=== PATIENT | female | born 1940 | race Caucasian/White ===

== ENCOUNTER 2016-06-14 08:00 | Day surgery (SDC) | payer MEDICARE ==
[~2016-06-14] VITALS: Ht 152.4 cm; Wt 69.1 kg
[2016-06-14] VITALS (8 sets, daily range): BP systolic 106–143; BP diastolic 49–73; PULSE 82–95; RESP 18–20; TEMP 97.7–98; O2SAT 93–98
[~2016-06-14 08:00] MED LIST: AMIT25; CLOR1TAB23 PO; ESTROGEN PATCH TOP; HYDR-3580 PO; IBUP600T26 PO; LIPI10TA PO; PRIN5TAB PO; SYNT75TA PO
[2016-06-14] MEDS ORDERED: AMIT25TA9 PO (08:38)
[2016-06-14] MEDS ORDERED: OMEG100010 PO (08:38)
[2016-06-14] MEDS ORDERED: CHEL50TA PO (08:38)
[2016-06-14] MEDS ORDERED: CLOR3.755 PO (08:38)
[2016-06-14] MEDS ORDERED: ALPH400C2 PO (08:38)
[2016-06-14] MEDS ORDERED: LEVO50TA4 PO (08:38)
[2016-06-14] MEDS ORDERED: LUTE1CAP4 PO (08:38)
[2016-06-14] MEDS ORDERED: EVEN10003 PO (08:38)
[2016-06-14] MEDS ORDERED: CHRO200C PO (08:38)
[2016-06-14] MEDS ORDERED: MULT1TAB84 PO (08:38)
[2016-06-14] MEDS ORDERED: LIPI10TA PO (08:38)
[2016-06-14] MEDS ORDERED: LISI10TA3 PO (08:38)
[2016-06-14] MEDS ORDERED: VITA10007 PO (08:38)
[2016-06-14] MEDS ORDERED: ESTR0.5T PO (08:38)
[2016-06-14] MEDS ORDERED: SODIUM CHLOR 0.9% 1000 ML IV SCH (09:15)
[2016-06-14] MEDS ORDERED: MIDAZOLAM HCL 5 MG/5 ML VIAL ONE (09:29)
[2016-06-14] MEDS ORDERED: fentaNYL CITRATE 250 MCG/5 ML AMP ONE (09:29)
[2016-06-14] MEDS ORDERED: LIDOCAINE 1%/EPINEPHrine 1:100,000 SOLN 20 ML VIAL ONE (10:02)
--- NOTE | 2016-06-14 10:25 | RADRPT ---
EXAM DATE/TIME: 06/14/2016 09:33 [facility] COMPARISON: No previous studies available for comparison. INDICATIONS : Left lung mass SEDATION TIME: 20 minutes BIOPSY SITE: Left upper lobe MEDICATION(S): 1.) 2 mg midazolam (Versed) IV 2.) 100 mcg fentanyl (Sublimaze) IV DEVICE(S): 1.) 20 gauge Temno core biopsy needle MEDICAL HISTORY : Gastroesophageal reflux disease. SURGICAL HISTORY : Hysterectomy. ENCOUNTER: Initial ACUITY: 1 day PAIN SCORE: 0/10 LOCATION: Right chest A total of one core specimen(s) were obtained and sent to the laboratory for pathologic evaluation. PROCEDURE: 1. CT guided lung biopsy. 2. Conscious sedation with continuous EKG and oximetry monitoring. 3. EKG and oximetry remained stable throughout the procedure. Prior to the procedure informed consent was obtained. Any appropriate prior imaging studies were rev iewed. The site was prepped in a sterile fashion. Full sterile technique was used, including cap, mask, madi rile gloves and gown and a large sterile sheet. Hand hygiene and 2% chlorhexidine and/or betadine/al cohol prep was utilized per protocol for cutaneous antisepsis. The skin and subcutaneous tissues wer e infiltrated with local anesthetic solution. With CT guidance the previously identified target was localized. Biopsy was performed using the presc ribed needle as above. Adequate hemostasis was obtained with compression at the puncture site. Follow-up CT scan reveals no pneumothorax. Conscious sedation was performed with the prescribed dosages and duration as above. The patient skylar ated the procedure well and there were no complications. EKG and oximetry remained stable throughout the procedure. The patient was sent to Radiology Outpatient Unit in stable condition. CONCLUSION: Uncomplicated CT guided biopsy. Trey Newton MD on June 14, 2016 at 10:22 Board Certified Radiologist. This report was verified electronically.
[2016-06-14] MEDS ORDERED: oxyCODONE/ACETAMINOPHEN 5 MG/325 MG TAB PO PRN (11:00)
--- NOTE | 2016-06-14 11:14 | RADRPT ---
EXAM DATE/TIME: 06/14/2016 10:32 [facility] COMPARISON: No previous studies available for comparison. INDICATIONS: S/p left lung bx MEDICAL HISTORY: None. SURGICAL HISTORY: None. ENCOUNTER: Initial ACUITY: 1 day PAIN SCORE: 0/10 LOCATION: Left chest FINDINGS: There is no evidence of pneumothorax status post left upper lobe mass biopsy. The heart and mediasti nal structures are normal. The pulmonary vascular pattern is normal. CONCLUSION: 1. No pneumothorax status post left upper lobe mass biopsy. Trey Newton MD on June 14, 2016 at 10:53 Board Certified Radiologist. This report was verified electronically.
--- NOTE | 2016-06-14 12:20 | RADRPT ---
EXAM DATE/TIME: 06/14/2016 11:57 [facility] COMPARISON: CHEST EXPIRATION ONLY, June 14, 2016, 10:32. INDICATIONS: Status post left lung biopsy. MEDICAL HISTORY: Hypertension. SURGICAL HISTORY: Hysterectomy. Tonsillectomy. Breast augmentation. ENCOUNTER: Initial ACUITY: 1 day PAIN SCORE: 0/10 LOCATION: Chest FINDINGS: There is no evidence of pneumothorax status post left upper lobe lung mass biopsy. The lungs are sta ble in appearance compared to the previous examination. The heart is stable. CONCLUSION: 1. No pneumothorax status post left lung mass biopsy. Trey Newton MD on June 14, 2016 at 12:12 Board Certified Radiologist. This report was verified electronically.
== END 2016-06-14 14:20 | disposition home or self-care (01) ==
LOC: HRAD 08:00 → EDSTATUS 08:00 → HRIP 08:02 → HRAD 14:20
PROVIDERS: ATTEND Internal Medicine
DX: R91.8 Other nonspecific abnormal finding of lung field (principal); K21.9 Gastro-esophageal reflux disease without esophagitis; I10 Essential (primary) hypertension
CPT/HCPCS: 32405; 71010; 77012; 88305; 88341; 88342; J2250; J3010

== ENCOUNTER 2016-06-17 08:19 | Day surgery (SDC) | payer MEDICARE ==
[~2016-06-17] VITALS: Ht 152.4 cm; Wt 69.1 kg
[~2016-06-17 08:19] MED LIST changes: +ALPH400C2 PO; +AMIT25TA9 PO; +CHEL50TA PO; +CHRO200C PO; +CLOR3.755 PO; +ESTR0.5T PO; +EVEN10003 PO; +LEVO50TA4 PO; +LISI10TA3 PO; +LUTE1CAP4 PO; +MULT1TAB84 PO; +OMEG100010 PO; +VITA10007 PO
[2016-06-17 08:41] VITALS: BP 142/81; PULSE 93; RESP 20; TEMP 98.7; O2SAT 91
[2016-06-17] MEDS ORDERED: SODIUM CHLORIDE 0.9% 1000 ML IV SCH (09:00)
[2016-06-17] MEDS ORDERED: MUPIROCIN 2% OINT 1 APPLIC/GM SYR EACH NARE SCH (09:00)
[2016-06-17] MEDS ORDERED: POVIDONE IODINE 5% (ANTISEPSIS KIT) 4 APPLICATIONS EACH NARE SCH (09:00)
[2016-06-17] MEDS ORDERED: VANCOMYCIN 1000 MG/NS 250 ML - implanted port/tunneled catheter IV SCH ×2 (09:00)
[2016-06-17] MEDS ORDERED: CHLORHEXIDINE GLUCONATE 2 % 1 PACK (2 CLOTHS) TOPICAL SCH (09:00)
[2016-06-17] MEDS ORDERED: ceFAZolin 2 GM PREMIX 50 ML - implanted port/tunneled catheter insertion IV SCH (09:30)
[2016-06-17] MEDS ORDERED: MIDAZOLAM HCL 5 MG/5 ML VIAL ONE (10:15)
[2016-06-17] MEDS ORDERED: fentaNYL CITRATE 250 MCG/5 ML AMP ONE (10:15)
[2016-06-17] MEDS ORDERED: LIDOCAINE 1%/EPINEPHrine 1:100,000 SOLN 20 ML VIAL ONE (10:48)
[2016-06-17 11:35] VITALS: BP 151/72; PULSE 92; RESP 20; TEMP 97.5; O2SAT 92
--- NOTE | 2016-06-17 11:37 | PD.RAD ---
Post Procedure Progress Note Pre Procedure Diagnosis: (1) Lung cancer Post Procedure Diagnosis: (1) Lung cancer Procedure Date: Jun 17, 2016 Supervising Radiologist: Fortino Negrete Proceduralist/Assist: Oseas Phillips, RT(R), RT Adolfo(R)(CV) Anesthesia: Local, Analgesia, Conscious Sedation Plan of Activity Patient to Unit: ROPU See PACS Report for procedural detail/treatment Central Venous Access Device Procedure 1 Right Internal Jugular Placement single lumen Turkish: 8 Fortino Negrete MD Jun 17, 2016 11:36
[2016-06-17] MEDS ORDERED: SODIUM CHLORIDE 0.9% FLUSH 5 ML FLUSH IVF PRN (11:45)
[2016-06-17 11:50] VITALS: BP 155/71; PULSE 98; RESP 20; O2SAT 92
[2016-06-17 12:20] VITALS: BP 124/53; PULSE 88; RESP 20; O2SAT 90
[2016-06-17 12:50] VITALS: BP 123/58; PULSE 88; RESP 20; O2SAT 95
--- NOTE | 2016-06-18 09:35 | RADRPT ---
EXAM DATE/TIME: 06/17/2016 10:26 [facility] COMPARISON: No previous studies available for comparison. INDICATIONS : Patient presents with lung cancer in need of port placment for chemotherapy treatment. MEDICAL HISTORY : HTN L upper lung mass Hx smoker COPD Hyperlipedemia GERD Thyroid disease SURGICAL HISTORY : Partial hysterectomy Tonsillectomy Tubal ligation Colonoscopy ENCOUNTER: Initial ACUITY: 1 month PAIN SCORE: 2/10 LOCATION: Left shoulder blade FLUORO TIME: 0.6 minutes SEDATION TIME: 30 minutes ACCESS: Right internal jugular vein SEDATION: 1.) 3 mg midazolam (Versed) IV 2.) 150 mcg fentanyl (Sublimaze) IV Prophylactic antibiotics were administered with appropriate pre-procedure timing. Vancomycin within 2 hours of procedure, Ancef (or alternative) within 1 hour of procedure. DEVICE: 1. 8 [place] single lumen Bard Power Port PROCEDURE : 1. Continuous pulse oximetry and EKG monitoring. 2. Intravenous conscious sedation. 3. Ultrasound guidance for venous access. 4. Fluoroscopic guided implantable central venous port placement. The patient was placed supine. The neck was prepped in sterile fashion. Full sterile technique was u sed, including cap, mask, sterile gloves and gown, and a large sterile sheet. Hand hygiene and 2% ch lorhexidine Betadine was utilized per protocol for cutaneous antisepsis with appropriate dry time for site. The skin and subcutaneous tissues were infiltrated with local anesthetic solution. Under direct ultrasound guidance, central venous access was accomplished in the targeted vessel. The ultrasound images depicting access guidance were stored and saved to PACS for permanent record. A s ubcutaneous pocket was created using blunt dissection. The port was introduced to the pocket. The c atheter tubing was fed through a subcutaneous tunnel to the venotomy site. The catheter tubing was c ut to a suitable length and then was introduced through a valved Peel-Away sheath and positioned with catheter tubing tip at the cavo-atrial junction level. The pocket incision was closed with subcutic ular Vicryl suture. Steri-Strips were applied. The port was flushed and locked with heparin solutio n per protocol. Sterile dressing was applied to the site. The patient tolerated the procedure well. Conscious sedation was performed with the prescribed dosages and duration as above. The patient skylar ated the procedure well and there were no complications. EKG and oximetry remained stable throughout the procedure. The patient was sent to post anesthesia recovery in stable condition. CONCLUSION: Uncomplicated ultrasound and fluoroscopic guided implanted central venous port catheter placement as described in detail above. An 8 [place] Power port was placed. Fortino Negrete MD on June 18, 2016 at 9:33 Board Certified Radiologist. This report was verified electronically.
== END 2016-06-17 13:44 | disposition home or self-care (01) ==
LOC: HROP 08:19 → HRIP 08:23 → HROP 13:44
PROVIDERS: ATTEND Internal Medicine
DX: Z45.2 Encounter for adjustment and management of vascular access device (principal); C34.90 Malignant neoplasm of unspecified part of unspecified bronchus or lung; I10 Essential (primary) hypertension; J44.9 Chronic obstructive pulmonary disease, unspecified; K21.9 Gastro-esophageal reflux disease without esophagitis; E07.9 Disorder of thyroid, unspecified
CPT/HCPCS: 36561; 76937; 77001; 99152; 99153; C1788; J0690; J1642; J2250; J3010; J3370; J7030; J7050

== ENCOUNTER 2016-10-13 18:32 | Emergency (ER) | payer MEDICARE ==
[~2016-10-13] VITALS: Ht 152.4 cm; Wt 58.0 kg
[2016-10-13 18:34] VITALS: BP 120/70; PULSE 117; RESP 20; TEMP 97.7; O2SAT 90
[2016-10-13 18:50] VITALS: BP 144/65; PULSE 114; RESP 22; TEMP 97.6; O2SAT 94
--- NOTE | 2016-10-13 19:00 | PD ---
HPI Chief Complaint: Respiratory Distress Time Seen by Provider: 19:00 Travel History International Travel<30 days: No Contact w/Intl Traveler<30days: No Traveled to known affect area: No History of Present Illness HPI 75-year-old female with a history of hypertension, hyperlipidemia, COPD, GERD, anxiety, non-small cell lung cancer presents to the emergency department for evaluation of shortness of breath. The patient is accompanied by her daughter who has been living with the patient for the past 4 months during her radiation and chemotherapy. Her last chemotherapy and radiation was about 1.5 months ago. The patient states that about a month ago she began to have some wheezing and cough. States that she called her PCP and was prescribed an albuterol inhaler and told to take [id number] expectorants. States that she took these without improvement of symptoms and when she saw her oncologist 1 week ago she was prescribed Levaquin and a Medrol Dosepak. States that she has taken these and finished her last doses this morning. States that with the antibiotics and steroids her symptoms had improved. States that today while her daughter was gone on for an appointment she began to have some shortness of breath. The patient states that her shortness of breath has resolved. She states that she is no longer experiencing any shortness of breath. She denies any chest pain, lightheadedness, dizziness, nausea, vomiting, abdominal pain, swelling of extremities, fever, chills. States she is no longer having a cough. No other complaints. PFSH Past Medical History Anxiety: Yes Cancer: No Cardiovascular Problems: No High Cholesterol: Yes Diabetes: No Diminished Hearing: No Endocrine: Yes Genitourinary: No Hepatitis: No Hiatal Hernia: No Hypertension: Yes Immune Disorder: No Musculoskeletal: No Neurologic: No Psychiatric: Yes (anxiety) Reproductive: No Respiratory: Yes (EMPHYSEMA) Thyroid Disease: Yes Triglycerides - High: Yes Menopausal: Yes Past Surgical History Abdominal Surgery: No AICD: No Cardiac Surgery: No Ear Surgery: No Endocrine Surgery: No Eye Surgery: No Genitourinary Surgery: No Gynecologic Surgery: Yes (hysterectomy) Hysterectomy: Yes Joint Replacement: No Pacemaker: No Thoracic Surgery: No Tonsillectomy: Yes Social History Alcohol Use: Yes (OCC) Tobacco Use: Yes (E-CIG) Substance Use: No Allergies-Medications (Allergen,Severity, Reaction): Coded Allergies: Sulfa (Verified Allergy, Severe, SWELLING, 06/17/16) Reported Meds & Prescriptions Reported Meds & Active Scripts Active Nebulizer/Adult Mask (N/A) 1 Kit Kit 1 Kit .ROUTE DIRECTED Albuterol Neb (Albuterol Sulfate) 2.5 Mg/3 Ml Neb 2.5 Mg NEB Q4HR NEB PRN 30 Days While awake Hydrocodone/Acetaminophen 7.5 mg/325 mg 1 Tab Tab 1 Tab PO Q4H PRN Reported Lutein-Zeaxanthin 45-1.8 Mg Cap 1 Cap PO DAILY [place] 3 1000 mg ([place]-3 Fatty Acids) 1 Cap Cap 1 Cap PO DAILY Alph-E (Vitamin E) 400 Unit Cap 1 Cap PO DAILY Zinc (Zinc Gluconate) 50 Mg Tab 1 Tab PO DAILY Vitamin C (Ascorbic Acid) 1,000 Mg Tab 1,000 Mg PO DAILY Evening [place]gett Oil 1,000 Mg Cap 1 Cap PO DAILY Chromium Picolinate 200 Mcg Cap 1 Cap PO DAILY Multivitamin Adults (Multiple Vitamins W/ Minerals) 1 Tab 1 Tab PO DAILY Estradiol 0.5 Mg Tab 0.1 Mg PO DAILY Clorazepate (Clorazepate Dipotassium) 3.75 Mg Tab 3.75 Mg PO DAILY PRN Amitriptyline (Amitriptyline HCl) 25 Mg Tab 25 Mg PO HS Levothyroxine (Levothyroxine Sodium) 50 Mcg Tab 50 Mcg PO DAILY Lipitor (Atorvastatin Calcium) 10 Mg Tab 10 Mg PO HS Lisinopril 10 Mg Tab 10 Mg PO DAILY Elavil 25 Mg Tab (Amitriptyline Hcl) 25 Mg Tab 25 Mg .XX DAILY Synthroid 75 mcg (Levothyroxine Sodium) 75 Mcg Tab 75 Mcg PO DAILY Ibuprofen 600 Mg Tab 600 Mg PO BID Tranxene T (Clorazepate Dipotassium) 3.75 Mg Tab 1 Tab PO TID [Estrogen Patch] 1 Patch TOP WEEKLY Lipitor 10 Mg Tab (Atorvastatin Calcium) 10 Mg Tab 10 Mg PO HS Prinivil (Lisinopril) 5 Mg Tab 5 Mg PO DAILY Review of Systems Except as stated in HPI: all other systems reviewed are Neg Physical Exam Narrative GENERAL: Well-nourished and well-developed pleasant female patient in no acute distress who is nontoxic appearing. SKIN: Warm and dry. HEAD: Normocephalic and atraumatic. EYES: No injection, drainage, or hyphema noted. PERRLA. EOMI. ENT: No nasal drainage noted. Oropharynx is clear. NECK: Supple and the trachea is midline. CARDIOVASCULAR: Regular rate and rhythm. RESPIRATORY: Breath sounds are equal bilaterally with no accessory muscle use, wheezing, rhonchi, or crackles. GASTROINTESTINAL: Abdomen is soft, non-tender, and nondistended. MUSCULOSKELETAL: No obvious deformities, swelling, cyanosis, or ecchymosis is present throughout the upper and lower extremities. Patient has full range of motion without any signs of neurovascular compromise. NEUROLOGICAL: Awake, alert, and oriented. Normal speech and gait. Cranial nerves are grossly intact. Data Data Last Documented VS Vital Signs Date Time Temp Pulse Resp B/P Pulse Ox O2 Delivery O2 Flow Rate FiO2 10/13/16 21:56 114 18 122/58 96 Nasal Cannula 2 10/13/16 18:50 97.6 Orders Complete Blood Count With Diff (10/13/16 18:59) Comprehensive Metabolic Panel (10/13/16 18:59) B-Type Natriuretic Peptide (10/13/16 18:59) Act Partial Throm Time (Ptt) (10/13/16 18:59) Prothrombin Time / Inr (Pt) (10/13/16 18:59) Troponin I (10/13/16 18:59) Iv Access Insert/Monitor (10/13/16 18:59) Ecg Monitoring (10/13/16 18:59) Oximetry (10/13/16 18:59) Chest, Single Ap (10/13/16 18:59) Ct Pulmonary Angiogram (10/13/16 20:24) Lorazepam Inj (Ativan Inj) (10/13/16 20:45) Electrocardiogram (10/13/16 19:02) Iohexol 350 Inj (Omnipaque 350 Inj) (10/13/16 21:26) Labs Laboratory Tests Test 10/13/16 19:07 White Blood Count 9.1 TH/MM3 Red Blood Count 5.02 MIL/MM3 Hemoglobin 14.6 GM/DL Hematocrit 44.9 % Mean Corpuscular Volume 89.6 FL Mean Corpuscular Hemoglobin 29.0 PG Mean Corpuscular Hemoglobin 32.4 % Concent Red Cell Distribution Width 19.0 % Platelet Count 187 TH/MM3 Mean Platelet Volume 8.5 FL Neutrophils (%) (Auto) 70.6 % Lymphocytes (%) (Auto) 15.0 % Monocytes (%) (Auto) 9.3 % Eosinophils (%) (Auto) 4.3 % Basophils (%) (Auto) 0.8 % Neutrophils # (Auto) 6.4 TH/MM3 Lymphocytes # (Auto) 1.4 TH/MM3 Monocytes # (Auto) 0.8 TH/MM3 Eosinophils # (Auto) 0.4 TH/MM3 Basophils # (Auto) 0.1 TH/MM3 CBC Comment DIFF FINAL Differential Comment Prothrombin Time 11.6 SEC Prothromb Time International 1.0 RATIO Ratio Activated Partial 26.4 SEC Thromboplast Time Sodium Level 137 MEQ/L Potassium Level 3.4 MEQ/L Chloride Level 102 MEQ/L Carbon Dioxide Level 25.0 MEQ/L Anion Gap 10 MEQ/L Blood Urea Nitrogen 19 MG/DL Creatinine 0.81 MG/DL Estimat Glomerular Filtration 69 ML/MIN Rate Random Glucose 99 MG/DL Calcium Level 9.0 MG/DL Total Bilirubin 0.6 MG/DL Aspartate Amino Transf 19 U/L (AST/SGOT) Alanine Aminotransferase 25 U/L (ALT/SGPT) Alkaline Phosphatase 140 U/L Troponin I 0.02 NG/ML B-Type Natriuretic Peptide 73 PG/ML Total Protein 8.4 GM/DL Albumin 3.2 GM/DL [facility] Medical Decision Making Medical Screen Exam Complete: Yes Emergency Medical Condition: Yes Differential Diagnosis Anxiety versus pneumonia versus lung cancer versus COPD exacerbation versus PE Narrative Course 75-year-old female presents to the emergency department for evaluation of an episode of shortness of breath while at home earlier today. Patient is afebrile. She is tachycardic with heart rate of 114 bpm. Initially her oxygen saturation was 90% on room air, now 94% on room air. I reviewed the EMR which shows that these vitals are consistent with previous visits. The daughter also confirms that her heart rate is typically elevated. Physical examination is unremarkable. Lungs are clear to auscultation. The patient's in no acute distress. CBC is unremarkable. CMP shows mild hypokalemia with potassium of 3.4, otherwise unremarkable. Troponin is 0.02. BNP is 73. Coags are unremarkable. Chest x-ray shows no acute disease. Patient was reassessed after labs and chest x-ray have resulted. She is having another episode of shortness of breath at this time. Due to her risk factors for PE will do a CT pulmonary angiogram. CT pulmonary angiogram is negative for PE. There is the known spiculated mass in the left lung apex which is decreased in size as well as underlying emphysema. No acute abnormalities. Patient has remained stable while here in the emergency department. I discussed all findings with the patient and family. I discussed with her that all labs and imaging are reassuring. I discussed with the patient and family that her symptoms may be secondary to anxiety. The patient verbalizes understanding and agrees that this could be a contributing factor. She states that she is on medication for anxiety and depression at home. I offered her a short course of a different anxiolytic and she declines at this time. The patient's daughter is concerned that she is not using her inhaler appropriately therefore I will prescribe her a nebulizer machine and albuterol nebs to use on an as-needed basis. The patient is instructed to follow up as an outpatient with her PCP and her oncologist. Advised that should she develop any worsening symptoms she can return to the emergency department. Patient family verbalized understanding and are comfortable with this plan. I discussed the case with my attending physician Dr. Easley who is aware of the patients history, physical examination findings, and treatment plan. Diagnosis Primary Impression: Shortness of breath Additional Impressions: Hx of cancer of lung Anxiety Referrals: Primary Care Physician Patient Instructions: General Instructions Additional Instructions: Try nebulizer instead of inhaler. Follow-up with your Primary Care Physician. Return to the ED for any acute worsening of symptoms. Med/Other Pt SpecificInfo: Prescription(s) given Scripts Nebulizer/Adult Mask 1 Kit Kit #1 KIT .ROUTE DIRECTED Ref 0 Prov:Erik Easley MD 10/13/16 Albuterol Neb 2.5 Mg/3 Ml Neb2.5 Mg NEB Q4HR NEB PRN (SOB/WHEEZING) 30 Days Ref 0 While awake Prov:Erik Easley MD 10/13/16 Disposition: 01 DISCHARGE HOME Condition: Stable Margi Lucio Oct 13, 2016 19:00
[2016-10-13 19:13] VITALS: O2SAT 95
[2016-10-13 19:27] LABS: AUTOMATED NEUTROPHIL # 6.4 TH/MM3 (1.8-7.7); BASOPHIL # 0.1 TH/MM3 (0-0.2); BASOPHIL % 0.8 % (0.0-2.0); EOSINOPHIL # 0.4 TH/MM3 (0-0.4); EOSINOPHIL % 4.3 % (0.0-4.0); HEMATOCRIT 44.9 % (35.0-46.0); HEMO FLAGS DIFF FINAL; LYMPHOCYTE # 1.4 TH/MM3 (1.0-4.8); MEAN CELL VOLUME 89.6 FL (80.0-100.0); MEAN CORPUSCULAR HGB CONC 32.4 % (32.0-36.0); MONO % 9.3 % (0.0-8.0); NEUT % 70.6 % (16.0-70.0); PLATELET COUNT 187 TH/MM3 (150-450); RED BLOOD COUNT 5.02 MIL/MM3 (4.00-5.30); WHITE BLOOD COUNT 9.1 TH/MM3 (4.0-11.0)
[2016-10-13 19:37] LABS: APTT (PATIENT) 26.4 SEC (24.3-30.1); PROTHROMBIN TIME - PATIENT 11.6 SEC (9.8-11.6)
[2016-10-13 19:51] LABS: ALT (GPT) 25 U/L (10-53); ANION GAP 10 MEQ/L (5-15); AST (GOT) 19 U/L (15-37); BLOOD UREA NITROGEN 19 MG/DL (7-18); CHLORIDE 102 MEQ/L (98-107); GLOMERULAR FILTRATION RATE 69 ML/MIN (>89); POTASSIUM 3.4 MEQ/L (3.5-5.1); SODIUM (NA) 137 MEQ/L (136-145)
[2016-10-13 19:55] LABS: ALKALINE PHOSPHATASE 140 U/L (45-117); TOTAL BILIRUBIN ADULT 0.6 MG/DL (0.2-1.0)
[2016-10-13 20:18] VITALS: BP 118/59; PULSE 114; RESP 18; O2SAT 100
--- NOTE | 2016-10-13 20:21 | RADRPT ---
EXAM DATE/TIME: 10/13/2016 19:26 [facility] COMPARISON: CHEST EXPIRATION ONLY, June 14, 2016, 11:57. CHEST SINGLE AP, December 05, 2014, 10:29. INDICATIONS : Shortness of breath. MEDICAL HISTORY : Carcinoma, lung. SURGICAL HISTORY : Infusaport. ENCOUNTER: Initial ACUITY: 1 day PAIN SCORE: 0/10 LOCATION: Left FINDINGS: A single erect portable view of the chest was obtained and demonstrates interval placement of a right -sided implantable port catheter with the tip projected over the superior vena cava. There are no con fluent infiltrates or effusions. The heart and mediastinal structures remain within normal limits. Th ere are mild atherosclerotic changes in the aorta. Partially calcified breast implants are again note d. CONCLUSION: No acute disease. Louie Conrad MD on October 13, 2016 at 20:18 Board Certified Radiologist. This report was verified electronically.
[2016-10-13] MEDS ORDERED: LORazepam 2 MG/ML VIAL IV PUSH ONE (20:45)
[2016-10-13] MEDS ORDERED: IOHEXOL 350 MG/ML 10 ML VIAL (for RAD DIAG) IV ONE (21:26)
--- NOTE | 2016-10-13 21:41 | RADRPT ---
EXAM DATE/TIME: 10/13/2016 21:08 [facility] COMPARISON: CT SIMULATION, June 22, 2016, 10:04. INDICATIONS : Patient has short of breath with cough, history of lung cancer. IV CONTRAST: 50 cc Omnipaque 350 (iohexol) IV Injection Site: Rt AC Lot: [id number] Exp Date: Jun 2019 Lot: Exp Date : RADIATION DOSE: 23.27 CTDIvol (mGy) MEDICAL HISTORY : Metastatic, lung. Hypertension. Emphysema. SURGICAL HISTORY : Port placement, lung biopsy ENCOUNTER: Initial ACUITY: 1 day PAIN SCALE: 0/10 LOCATION: chest TECHNIQUE: Volumetric scanning of the chest was performed using a pulmonary embolism protocol MIP images were re constructed. Using automated exposure control and adjustment of the mA and/or kV according to patien t size, radiation dose was kept as low as reasonably achievable to obtain optimal diagnostic quality images. FINDINGS: PULMONARY ARTERIES: No filling defects are seen in the pulmonary arteries through the segmental level. LUNGS: Underlying emphysema is again noted with hyperinflation. The previously noted spiculated mass in the left lung apex is smaller in size there is associated pleural thickening. PLEURAE: There is no pleural thickening or pleural effusion. MEDIASTINUM: There is good visualization of the great vessels of the middle mediastinum. No evidence of mediastin al or hilar adenopathy/mass. MUSCULOSKELETAL: Within normal limits for patient age. MISCELLANEOUS: The visualized upper abdominal organs demonstrate no acute abnormality. CONCLUSION: 1. No evidence of pulmonary embolism. 2. The known spiculated mass in the left lung apex is decreased in size with associated pleural thick ening. 3. Underlying emphysema. Louie Conrad MD on October 13, 2016 at 21:37 Board Certified Radiologist. This report was verified electronically.
[2016-10-13] MEDS ORDERED: ALBU0.08 NEB (21:52)
[2016-10-13] MEDS ORDERED: NEBULIZER/ADULT1 KIT ×3 (21:53→21:55)
[2016-10-13 21:56] VITALS: BP 122/58; PULSE 114; RESP 18; O2SAT 96
[2016-10-13] MEDS ORDERED: LEVO.075 PO (22:18)
[2016-10-13] MEDS ORDERED: HYDR-3533 PO (22:19)
--- NOTE | 2016-10-14 14:22 | EKG ---
Date Performed: 10/13/2016 Time Performed: 19:02:59 PTAGE: 75 years EKG: SINUS TACHYCARDIA POSSIBLE LEFT ATRIAL ENLARGEMENT ABNORMAL RHYTHM ECG Compared to PREVIOUS TRACING , the sinus rate has increased. PREVIOUS TRACIN12/27/2014 10.12 DOCTOR: Chele Oglesby Interpretating Date/Time 10/14/2016 14:22:23
== END 2016-10-13 22:27 | disposition home or self-care (01) ==
LOC: NEPE 18:32
DX: R06.02 Shortness of breath (principal); C34.90 Malignant neoplasm of unspecified part of unspecified bronchus or lung; F41.9 Anxiety disorder, unspecified; R94.31 Abnormal electrocardiogram [ECG] [EKG]; I10 Essential (primary) hypertension
CPT/HCPCS: 71010; 71275; 80053; 83880; 84484; 85025; 85610; 85730; 93005; 99285; Q9967

== ENCOUNTER → 2016-10-26 | Outpatient (CLI) | payer MEDICARE ==
[~2016-10-26] MED LIST changes: +ALBU0.08 NEB; -ALPH400C2 PO; -AMIT25; -CHEL50TA PO; -CHRO200C PO; -CLOR1TAB23 PO; -ESTR0.5T PO; -EVEN10003 PO; +HYDR-3533 PO; -HYDR-3580 PO; -IBUP600T26 PO; -LIPI10TA PO; -LUTE1CAP4 PO; -MULT1TAB84 PO; +NEBULIZER/ADULT1 KIT; -OMEG100010 PO; -PRIN5TAB PO; -SYNT75TA PO; -VITA10007 PO
--- NOTE | 2016-10-26 11:14 | RADRPT ---
EXAM DATE/TIME: 10/26/2016 10:22 [facility] COMPARISON: No previous studies available for comparison. INDICATIONS : Dysphagia. FLUORO TIME: 1.7 minutes IMAGE COUNT: 1 CONTRAST: Dose as prescribed by speech pathologist. MEDICAL HISTORY : Carcinoma, lung. chemo and radiation for lung ca. SURGICAL HISTORY : None. ENCOUNTER: Initial ACUITY: 2 weeks PAIN SCORE: 0/10 LOCATION: Bilateral neck FINDINGS: A modified barium swallow was performed with speech pathology. Patient was given a variety of liquids , semisolid, and solid material to swallow. No aspiration or penetration was seen. For a full detailed report, see report by the speech pathologist. CONCLUSION: No aspiration or penetration was seen. Please see the full report with the speech pathology departmen t. Og Long MD on October 26, 2016 at 11:10 Board Certified Radiologist. This report was verified electronically.
== END ==
LOC: HRAD 10:05
PROVIDERS: ATTEND Internal Medicine
DX: R13.10 Dysphagia, unspecified (principal)
CPT/HCPCS: 74230; 92611; G8996; G8997; G8998

== ENCOUNTER 2016-11-10 18:17 | Inpatient (IN) | payer MEDICARE ==
[~2016-11-10] VITALS: Ht 152.4 cm; Wt 52.8 kg
[2016-11-11] MEDS ORDERED: ACETAMINOPHEN 325 MG TAB PO PRN (09:30)
[2016-11-11] MEDS ORDERED: PROMETHAZINE HCL 25 MG TAB PO PRN (09:30)
[2016-11-11] MEDS ORDERED: [UNRECOGNIZED DRUG - REMARK] PRN (09:30)
[2016-11-11] MEDS ORDERED: SODIUM CHLORIDE 10 ML FLUSH PRN IV FLUSH (09:30)
[2016-11-11] MEDS ORDERED: ALTEPLASE RECOMBINANT 2 MG VIAL IV FLUSH PRN (09:30)
[2016-11-11] MEDS ORDERED: MAGNESIUM HYDROXIDE SUSP 30 ML CUP PO PRN (09:30)
[2016-11-11 10:45] VITALS: BP 120/72; PULSE 107; RESP 18; TEMP 98.2; O2SAT 96
--- NOTE | 2016-11-11 11:50 | PD.CONS ---
HPI History of Present Illness This is a 75 year old female patient who has dysphagia. She has XRT and chemotherapy for lung Cancer finishing radiation in August. She started having dysphagia in early October and has lost over 20 pounds since then because she cannot eat. She underwent esophageal dilatation last week to 13mm with DR Monzon and she could swallow liquid for one day then the dysphagia became severe again. She is discouraged at the lack of improvement. She does have a mass in her right lung that is reportedly smaller but I am concerned that she may have a tumor in the mediastinum causing her dysphagia because of the short lived improvement after dilatation to 13mm. She is against tube feeding but she may need a PEG tube if there is a mass in medistinum. ROS is negative for chest pain, SOB, headache, earache, abdominal pain. Otherwise complete ros is negative.[]. PFSH Past Medical History COPD hypertension Past Surgical History Hysterectomy Coded Allergies: Sulfa (Verified Allergy, Severe, SWELLING, 06/17/16) Medications Current Medications Medications (Trade) Dose Ordered Sig/Alla Route Start Time Stop Time Status Last Admin ([facility] Information) FOR PATIENTS W... UNSCH PRN .XX 11/11/16 09:30 (NS Flush) 2 ml BID IV FLUSH 11/11/16 21:00 (NS Flush) 2 ml UNSCH PRN IV FLUSH 11/11/16 09:30 (Milk Of Magnesia Liq) 15 ml DAILY PRN PO 11/11/16 09:30 (Phenergan) 25 mg Q4H PRN PO 11/11/16 09:30 (Cathflo Activase Inj) 2 mg UNSCH PRN IV FLUSH 11/11/16 09:30 (Tylenol) 650 mg Q4H PRN PO 11/11/16 09:30 Family History Not contributory Social History Smokes E cigs Occasional alcohol GI Exam Vitals I&O Vital Signs Date Time Temp Pulse Resp B/P Pulse Ox O2 Delivery O2 Flow Rate FiO2 11/11/16 10:45 98.2 107 18 120/72 96 Physical Examination HEENT: Pupils round and reactive to light; normocephalic; atraumatic; no jaundice. Throat is clear. NECK: Neck is supple, no JVD, no lymphadenopathy. CHEST: Chest is clear to auscultation and percussion. Mediport present. CARDIAC: Regular rate and rhythm with no murmur gallop or rubs. ABDOMEN: Soft, nondistended, nontender; no hepatosplenomegaly; bowel sounds are present in all four quadrants. EXTREMITIES: No clubbing, cyanosis, or edema. SKIN: Normal; no rash; no jaundice. DRAFTER PATENT: No focal deficits; alert and oriented times three. Mood: grumpy Assessment and Plan Plan Imp: Dysphagia with esophageal stricture Lung CAncer S/P XRT and chemo Wt loss due to inability to eat Plan: Chest, abdomen and pelvis CT scan with IV contrast without po contrast. Urgent After CT, we can consider EGD today with plan to dilate with or without plan for PEG tube, depending on results. Keep NPO Discussed with HEMOnc provider Min Galaviz MD Nov 11, 2016 11:50
[2016-11-11 12:04] LABS: AUTOMATED NEUTROPHIL # 8.1 TH/MM3 (1.8-7.7); BASOPHIL # 0.1 TH/MM3 (0-0.2); BASOPHIL % 0.5 % (0.0-2.0); EOSINOPHIL # 0.1 TH/MM3 (0-0.4); EOSINOPHIL % 0.8 % (0.0-4.0); HEMATOCRIT 44.5 % (35.0-46.0); HEMO FLAGS DIFF FINAL; LYMPH % 13.8 % (9.0-44.0); LYMPHOCYTE # 1.5 TH/MM3 (1.0-4.8); MEAN CELL VOLUME 86.8 FL (80.0-100.0); MEAN CORPUSCULAR HEMOGLOBIN 28.5 PG (27.0-34.0); MEAN CORPUSCULAR HGB CONC 32.8 % (32.0-36.0); MONO % 8.5 % (0.0-8.0); NEUT % 76.4 % (16.0-70.0); PLATELET COUNT 227 TH/MM3 (150-450); RED BLOOD COUNT 5.13 MIL/MM3 (4.00-5.30); RED CELL DISTRIBUTION WIDTH 16.9 % (11.6-17.2); WHITE BLOOD COUNT 10.6 TH/MM3 (4.0-11.0)
[2016-11-11 12:26] LABS: ALT (GPT) 13 U/L (10-53); ANION GAP 9 MEQ/L (5-15); AST (GOT) 14 U/L (15-37); BICARBONATE 29.4 MEQ/L (21.0-32.0); BLOOD UREA NITROGEN 21 MG/DL (7-18); CHLORIDE 103 MEQ/L (98-107); GLOMERULAR FILTRATION RATE 99 ML/MIN (>89); SODIUM (NA) 141 MEQ/L (136-145)
[2016-11-11 12:28] LABS: ALKALINE PHOSPHATASE 98 U/L (45-117); TOTAL BILIRUBIN ADULT 0.7 MG/DL (0.2-1.0)
[2016-11-11] MEDS ORDERED: IOHEXOL 350 MG/ML 10 ML VIAL (for RAD DIAG) IV ONE (15:36)
--- NOTE | 2016-11-11 15:58 | RADRPT ---
EXAM DATE/TIME: 11/11/2016 15:31 [facility] COMPARISON: CT ABDOMEN & PELVIS W CONTRAST, November 11, 2016, 15:34. CT NEEDLE BIOPSY LUNG, LEFT, June 14, 2016 , 9:33. CT PULMONARY ANGIOGRAM, October 13, 2016, 21:08. INDICATIONS : History of lung mass. Evaluate for metastatic disease. IV CONTRAST: 95 cc Omnipaque 350 (iohexol) IV ; Cumulative dose for multiple exams. RADIATION DOSE: 5.10 CTDIvol (mGy) ; Combined studies MEDICAL HISTORY : Carcinoma, lung. Hypertension. SURGICAL HISTORY : Hysterectomy. ENCOUNTER: Initial ACUITY: 1 day PAIN SCALE: 0/10 LOCATION: chest TECHNIQUE: Volumetric scanning of the chest was performed. Using automated exposure control and adjustment of t he mA and/or kV according to patient size, radiation dose was kept as low as reasonably achievable to obtain optimal diagnostic quality images. DICOM format image data is available electronically for review and comparison. FINDINGS: LUNGS: There is a known pleural-based mass in the posterior left upper lung currently measuring 2.4 x 1.8 cm . This is decreased in size compared to the prior exam of 06/14/2016 but measure approximately 3.9 cm. There is evidence of central lobar emphysema. No focal or acute pulmonary infiltrates are demonstrate d. PLEURA: There is no pleural thickening or pleural effusion. MEDIASTINUM: The heart and great vessels demonstrate no acute abnormality. There is no mediastinal or hilar lymph adenopathy. Nonspecific thickening of the esophagus. AXILLAE: Within normal limits. No lymphadenopathy. SKELETAL: Within normal limits for patient age. No grossly lytic or blastic lesions are demonstrated. Mild dege nerative changes. MISCELLANEOUS: The visualized upper abdominal organs demonstrate no acute abnormality. Bilateral breast implants are in place. CONCLUSION: 1. There is a known pleural-based mass in the posterior left upper lung measuring 2.4 x 1.8 cm. This is decreased in size compared to the prior examination. 2. Central lobar emphysema. 3. No new or acute intrathoracic disease. Keenan Hernandez MD on November 11, 2016 at 15:50 Board Certified Radiologist. This report was verified electronically.
[2016-11-11 16:00] VITALS: BP 135/78; PULSE 100; RESP 18; TEMP 98.9; O2SAT 95
--- NOTE | 2016-11-11 16:02 | RADRPT ---
EXAM DATE/TIME: 11/11/2016 15:34 [facility] COMPARISON: CT ABDOMEN & PELVIS W CONTRAST, December 05, 2014, 11:56. INDICATIONS : History of lung mass. Evaluate for metastatic disease. IV CONTRAST: 95 cc Omnipaque 350 (iohexol) IV ; Cumulative dose for multiple exams. ORAL CONTRAST: No oral contrast ingested. RADIATION DOSE: 5.10 CTDIvol (mGy) ; Combined studies MEDICAL HISTORY : Hypertension. Carcinoma, lung. SURGICAL HISTORY : Hysterectomy. ENCOUNTER: Initial ACUITY: 1 day PAIN SCALE: 0/10 LOCATION: abdomen TECHNIQUE: Volumetric scanning of the abdomen and pelvis was performed. Using automated exposure control and ad justment of the mA and/or kV according to patient size, radiation dose was kept as low as reasonably achievable to obtain optimal diagnostic quality images. DICOM format image data is available electro nically for review and comparison. FINDINGS: LOWER LUNGS: The visualized lower lungs are clear. LIVER: Homogeneous density without lesion. There is no dilation of the biliary tree. No calcified gallston es. SPLEEN: Normal size without lesion. PANCREAS: Within normal limits. KIDNEYS: Normal in size and shape. There is no mass, stone or hydronephrosis. Stable small left renal cyst. ADRENAL GLANDS: Within normal limits. VASCULAR: There is no aortic aneurysm. BOWEL/MESENTERY: The stomach, small bowel, and colon demonstrate no acute abnormality. There is no free intraperitone al air or fluid. Scattered diverticulosis of the sigmoid colon without inflammatory changes. No signi ficant changes. ABDOMINAL WALL: Within normal limits. RETROPERITONEUM: The previously noted adenopathy in the upper abdomen has improved. The macey hepatal lymph node on prior exam it measured 2.5 cm now measures 1.6 cm. The other nodes have also gotten smaller. No def inite para-aortic or retroperitoneal adenopathy is seen on today's examination. BLADDER: No wall thickening or mass. REPRODUCTIVE: Within normal limits. INGUINAL: There is no lymphadenopathy or hernia. MUSCULOSKELETAL: Within normal limits for patient age. Degenerative type changes. No gross lytic or blastic lesions ar e seen. CONCLUSION: 1. The previously noted adenopathy in the upper abdomen has improved compared to the prior exam. All of the previous prominent lymph nodes have decreased in size. No evidence of any new adenopathy. 2. Stable benign-appearing left renal cyst. 3. Stable diverticulosis of the sigmoid colon without inflammatory changes. 4. No other new or significant changes compared to the prior study. Keenan Hernandez MD on November 11, 2016 at 15:55 Board Certified Radiologist. This report was verified electronically.
[2016-11-11] MEDS ORDERED: SODIUM CHLORIDE 10 ML FLUSH BID IV FLUSH SCH (21:00)
[2016-11-11 21:15] VITALS: BP 156/67; PULSE 111; RESP 18; TEMP 97.4; O2SAT 94
[2016-11-12] VITALS: BP 119/56; PULSE 104; RESP 18; TEMP 98; O2SAT 92
[2016-11-12] MEDS ORDERED: DEXT 5%-NACL 0.45% 1000 ML INJ 1,000 ML IV ONE (00:15)
[2016-11-12] MEDS ORDERED: POTASSIUM CHLORIDE INJ 40 MEQ in DEXTROSE 5% IN WATE 1000ML INJ 1,000 ML IV SCH ×2 (01:00)
[2016-11-12 05:30] VITALS: BP 120/59; PULSE 98; RESP 18; TEMP 97.1; O2SAT 90
--- NOTE | 2016-11-12 06:05 | MH ---
cc: JOSE BAUTISTA MD DATE OF ADMISSION: 11/11/2016 DATE OF 1940. DATE OF CONSULTATION November 11, 2016. REASON FOR ADMISSION Significant dysphagia, poor oral intake, weight loss. History of Stage III lung cancer. CHIEF COMPLAINT Dysphagia. HISTORY OF PRESENT ILLNESS This is a 75-year-old female who has a history of Stage III non-small cell lung cancer. This was a poorly differentiated lung cancer which was diagnosed via CT-guided biopsy in June of 2016. PET scan confirmed the disease to be Stage III-B. She received concurrent chemotherapy and radiation treatments. She received four cycles of chemotherapy. Followup imaging showed a residual lung lesion in the left upper lobe which was 1.8 x 2.4 x 3.8-cm. Further discussions were held with the patient regarding additional two consolidation treatments but unfortunately the patient's performance status remained poor. She was deconditioned. She then developed swallowing difficulty. The patient was referred to GI. An EGD was performed which showed an esophageal stricture. She had dilatation but this did not improve her symptoms. She presented to the oncology clinic with significant dysphagia. She has had several pounds of weight loss. She is unable to eat by mouth and she was dehydrated. She was recommend admission to the hospital but she initially declined. Later on she agreed and she is being admitted to the hospital today. REVIEW OF SYSTEMS A comprehensive 14-point review of systems was completed which is negative except as described in the HPI. PAST MEDICAL HISTORY 1. Stage III-B non-small cell lung cancer. 2. Hypertension. 3. Hyperlipidemia. 4. Macular degeneration. 5. Hypothyroidism. PAST SURGICAL HISTORY 1. Lung biopsy. 2. Colonoscopy. 3. Tonsillectomy. 4. Tubal ligation. 5. Partial hysterectomy. HOME MEDICATIONS 1. Lisinopril 1 tablet p.o. daily. 2. Levothyroxine 50 mcg daily. 3. Colace and senna. 4. Amitriptyline 25 mg daily. ALLERGIES ALLERGIC TO SULFA DRUGS. PHYSICAL EXAMINATION VITAL SIGNS: Blood pressure is 135/78, pulse is in the 100s, temperature is 98.9, heart rate is in the 100s, O2 sats are 95% on room air. GENERAL: A cachectic, elderly female in no acute distress. HEENT: Pupils are equal, round, react to light. EOMI. No oral thrush. No oral lesions. NECK: Supple. No JVD, no bruits, no lymphadenopathy. CHEST: Clear to auscultation bilaterally. CARDIAC: S1, S2. Regular rate and rhythm. ABDOMEN: Soft, nontender, nondistended. Bowel sounds are present. EXTREMITIES: Without any edema, erythema or cyanosis. SKIN: Without any petechiae, lesion or bruises. NEURO: No focal deficits. PSYCHIATRIC: Mood and affect is appropriate. LABORATORY DATA WBCs 10.6, hemoglobin is 14.6, platelet count is 227. Serum chemistries show sodium of 141, potassium 3.0, chloride 103, CO2 29.4, BUN is 21, creatinine is 0.59, GFR is 99, calcium is 9.4, total bilirubin 0.7, AST 14, ALT 39, phos is 98, albumin is 3. ASSESSMENT AND PLAN This is a 75-year-old female who has a history of Stage III-B lung cancer which was treated with concurrent chemotherapy and radiation treatments. She developed significant dysphagia with poor oral intake. She had an EGD and was found to have an esophageal stricture. She had dilatation but she remained dysphagic. She is being admitted to the hospital with failure to thrive, poor oral intake and significant weight loss. 1. Severe dysphagia and esophageal stricture. We will ask GI to see this patient. It is unclear whether she can have another esophageal dilatation. She may need PEG tube placement since her oral intake is severely compromised and she has had weight loss. Most recent imaging does not show any mediastinal mass that could be compressing the esophagus. She only had one residual lesion in the left upper lobe. We will obtain a CT of the chest, abdomen and pelvis to assess her disease status. 2. Stage III-B lung adenocarcinoma. Most recent scan shows stable disease. 3. Failure to thrive and weight loss. She will likely need a PEG tube placement. We will await further recommendations from GI. 4. Hypokalemia. We will give her IV potassium. We will monitor her electrolytes on a daily basis. 5. DVT prophylaxis. We will start her on Lovenox subcu daily. 6. Further recommendations will be made based on the clinical course. MD JESS Valladares/MORE /11:55 PM /5:50 AM NOEL[facility]
[2016-11-12] MEDS ORDERED: LEVO75TA3 PO (08:29)
[2016-11-12] MEDS ORDERED: ACETAMINOPHEN/HYDROcodone 325 MG/5 MG TAB PO PRN (08:30)
[2016-11-12] MEDS ORDERED: LISINOPRIL 10 MG TAB PO SCH (10:00)
[2016-11-12] MEDS ORDERED: LEVOTHYROXINE SODIUM 75 MCG TAB PO SCH (10:00)
[2016-11-12] MEDS ORDERED: DO NOT ADM ANY ANTICOAGULANT DRUGS PRN (11:17)
--- NOTE | 2016-11-12 11:20 | HHI.GIFU ---
Subjective Remarks Immediate postop note: EGD with dilatation over guidewire, with snare polypectomy Indication: Dysphagia, wt loss, esophageal stricture Meds: MAC Findings: Esophagus stricture with food blocking the opening. Food gently pushed into the stomach. Dilatation was performed over guidewire with savary 11,12, and 12.8mm Relook showed polypoid tissue acting as a ball valve. Polypoid tissue removed with snare polypectomy technique Stomach: normal Duodenum: normal Objective Vitals I&O Vital Signs Date Time Temp Pulse Resp B/P Pulse Ox O2 Delivery O2 Flow Rate FiO2 11/12/16 05:30 97.1 98 18 120/59 90 11/12/16 00:00 98.0 104 18 119/56 92 11/11/16 21:15 97.4 111 18 156/67 94 11/11/16 16:00 98.9 100 18 135/78 95 Physical Exam HEENT: Pupils round and reactive to light; normocephalic; atraumatic; no jaundice. Throat is clear. NECK: Neck is supple, no JVD, no lymphadenopathy. CHEST: Chest is clear to auscultation and percussion. CARDIAC: Regular rate and rhythm with no murmur gallop or rubs. ABDOMEN: Soft, nondistended, nontender; no hepatosplenomegaly; bowel sounds are present in all four quadrants. EXTREMITIES: No clubbing, cyanosis, or edema. SKIN: Normal; no rash; no jaundice. VAULT ATTENDANT: No focal deficits; alert and oriented times three. Assessment and Plan Plan Imp: Dysphagia with esophageal stricture Lung CAncer S/P XRT and chemo Wt loss due to inability to eat Plan: Chest, abdomen and pelvis CT scan with IV contrast without po contrast. Urgent Showed no new mediastinal lesion EGD with dilatation and removal of tissue flap in the stricture area causing obstruction Clear liquid lunch. Advance to full liquids if tolerates well. Repeat esophageal dilatation in 1 week to larger size, 15mm as a target. Continue PPI bid Meds should be liquid or crushed. OK to discharge to home later today if stable. Min Galaviz MD Nov 12, 2016 11:20
[2016-11-12] MEDS ORDERED: ALUMINUM/MAGNESIUM/SIMETH 30 ML CUP PO PRN (11:30)
[2016-11-12 12:00] VITALS: BP 117/87; PULSE 95; RESP 18; TEMP 97.7; O2SAT 96
[2016-11-12] MEDS ORDERED: ALUMINUM/MAGNESIUM/SIMETH 30 ML CUP PO ONE (12:00)
--- NOTE | 2016-11-12 12:25 | PD.ONC.PN ---
Subjective Subjective Remarks Afebrile overnight. Eager to go home. Just back from EGD with dilation. Frustrated that she is in the hospital. Able to sip [id number]. Able to tolerate jello last night. Objective Data Date Time Temp Pulse Resp B/P Pulse Ox O2 Delivery O2 Flow Rate FiO2 11/12/16 11:38 98 18 119/60 95 11/12/16 11:28 94 18 115/55 96 11/12/16 11:18 97.9 93 18 126/59 97 11/12/16 05:30 97.1 98 18 120/59 90 11/12/16 00:00 98.0 104 18 119/56 92 11/11/16 21:15 97.4 111 18 156/67 94 11/11/16 16:00 98.9 100 18 135/78 95 11/12/16 11/12/16 11/12/16 07:00 15:00 23:00 Intake Total 900 ml Balance 900 ml Result Diagram: 11/11/16 1104 11/11/16 1104 Administered Medications Medications (Trade) Dose Ordered Sig/Alla Route PRN Reason Start Time Stop Time Status Last Admin Dose Admin Sodium Chloride (NS Flush) 2 ml BID IV FLUSH 11/11/16 21:00 11/11/16 22:00 Promethazine HCl (Phenergan) 25 mg Q4H PRN PO NAUSEA OR VOMITING 11/11/16 09:30 11/12/16 00:12 Alteplase, Recombinant 2 mg 2 mg UNSCH PRN IV FLUSH SEE LABEL COMMENTS 11/11/16 09:30 11/11/16 14:04 Dextrose/Sodium Chloride 1,000 ml @ 75 mls/hr BOLUS ONCE IV 11/12/16 00:15 11/12/16 13:34 11/12/16 00:21 Potassium Chloride/Dextrose (KCl Inj/D5W 1000 ml Inj) 1,020 ml @ 42 mls/hr Q24H IV 11/12/16 01:00 11/12/16 03:22 Objective Remarks GENERAL: Elderly female, upright in bed in nad. SKIN: Warm and dry. HEAD: Normocephalic. EYES: No injection or drainage. NECK: Supple, trachea midline. CARDIOVASCULAR: Regular rate and rhythm RESPIRATORY: Breath sounds equal bilaterally. No accessory muscle use. GASTROINTESTINAL: Abdomen soft, non-tender, nondistended. EXTREMITIES: No cyanosis NEUROLOGICAL: No obvious focal deficit. Awake, alert, and oriented x3. Assessment/Plan Problem List: (1) Lung cancer Status: Acute Plan: -- June of 2016: dx with poorly differentiated lung cancer via CT-guided biopsy. PET scan confirmed the disease to be Stage III-B. --received concurrent chemotherapy and radiation treatments. s/p four cycles of chemotherapy. --Followup imaging showed a residual lung lesion in the left upper lobe which was 1.8 x 2.4 x 3.8-cm. (2) Dysphagia Status: Acute Plan: --EGD on 11/12: esophageal dilation and biopsy --chocolate maker consulted--> may need PEG tube placement since her oral intake is severely compromised and she has had weight loss. --Most recent imaging does not show any mediastinal mass that could be compressing the esophagus. She only had one residual lesion in the left upper lobe. --CT C/A/P: adenopathy improved in abdomen. Chest mass decreased in size (3) DVT prophylaxis Status: Acute Plan: --on Lovenox Assessment 75-year-old female who has a history of Stage III-B lung cancer which was treated with concurrent chemotherapy and radiation treatments. She developed significant dysphagia with poor oral intake. She had an EGD and was found to have an esophageal stricture. She had dilatation but she remained dysphagic. She is being admitted to the hospital with failure to thrive, poor oral intake and significant weight loss. h/o Stage III-B non-small cell lung cancer. Hypertension. Hyperlipidemia. Macular degeneration. Hypothyroidism. Plan 1. await chocolate maker consult 2. start Lovenox prophylaxis 3. clear liquid diet. 4. replace potassium Attending Statement The exam, history, and the medical decision-making described in the above note were completed with the assistance of the mid-level provider. I reviewed and agree with the findings presented. I attest that I had a [id number] encounter with the patient on the same day, and personally performed and documented my assessment and findings in the medical record. Had EGD and dilatation able to swallow liquid diet discussed case with Dr. Galaviz impacted food removed on EGD. free flap seen causing obstruction. cauterized by GI patient insisting to go home. Threatening to leave AMA since she is able to swallow. Will d/c home. return next week to attempt another dilatation will be seen in clinic d/w RN approximately 40 minutes spent discussion with patient/daughter and coordination of care Rakel Saleem Nov 12, 2016 12:25 Montrell Montiel MD Nov 13, 2016 03:19
[2016-11-12 13:00] LABS: AUTOMATED NEUTROPHIL # 5.9 TH/MM3 (1.8-7.7); BASOPHIL # 0.1 TH/MM3 (0-0.2); EOSINOPHIL # 0.1 TH/MM3 (0-0.4); EOSINOPHIL % 1.5 % (0.0-4.0); HEMATOCRIT 39.9 % (35.0-46.0); HEMO FLAGS DIFF FINAL; LYMPH % 16.7 % (9.0-44.0); LYMPHOCYTE # 1.4 TH/MM3 (1.0-4.8); MEAN CELL VOLUME 86.3 FL (80.0-100.0); MEAN CORPUSCULAR HEMOGLOBIN 27.9 PG (27.0-34.0); MEAN CORPUSCULAR HGB CONC 32.3 % (32.0-36.0); MONO % 8.2 % (0.0-8.0); NEUT % 72.6 % (16.0-70.0); PLATELET COUNT 219 TH/MM3 (150-450); RED BLOOD COUNT 4.62 MIL/MM3 (4.00-5.30); RED CELL DISTRIBUTION WIDTH 16.9 % (11.6-17.2); WHITE BLOOD COUNT 8.1 TH/MM3 (4.0-11.0)
[2016-11-12 13:36] LABS: ALKALINE PHOSPHATASE 84 U/L (45-117); ALT (GPT) 9 U/L (10-53); ANION GAP 8 MEQ/L (5-15); AST (GOT) 10 U/L (15-37); BICARBONATE 29.3 MEQ/L (21.0-32.0); BLOOD UREA NITROGEN 15 MG/DL (7-18); CHLORIDE 104 MEQ/L (98-107); GLOMERULAR FILTRATION RATE 114 ML/MIN (>89); SODIUM (NA) 141 MEQ/L (136-145); TOTAL BILIRUBIN ADULT 0.6 MG/DL (0.2-1.0)
[2016-11-12] MEDS ORDERED: PROPOFOL 200 MG/20 ML AMP IV ONE (13:40)
[2016-11-12 13:48] LABS: POTASSIUM 2.7 MEQ/L (3.5-5.1)
--- NOTE | 2016-11-12 14:17 | HHI.GIFU ---
GI Follow-up Note Consult Follow-up D/W pt and her daughter pathology results from previous EGD, as well as procedural details from today's EGD. Pt to take amoxicillin 500mg TID for 1 week, PPI BID. f/u with GI in 1-2 wks Entered by: Ai Serrano Nov 12, 2016 14:17
[2016-11-12] MEDS ORDERED: POTASSIUM CHLORIDE 10 MEQ CONTROLLED RELEASE TAB PO ONE (15:00)
[2016-11-12] MEDS ORDERED: AMOX500C PO (15:49)
--- NOTE | 2016-11-12 15:50 | HHI.DCPOC ---
Discharge Care Plan Diagnosis: (1) Hx of cancer of lung (2) Dysphagia Goals to Promote Your Health * To prevent worsening of your condition and complications * To maintain your health at the optimal level Directions to Meet Your Goals Take your medications as prescribed Follow your dietary instruction Follow activity as directed Keep your appointments as scheduled Take your immunizations and boosters as scheduled If your symptoms worsen call your PCP, if no PCP go to Urgent Care Center or Emergency Room Smoking is Dangerous to Your Health. Avoid second hand smoke Call the 24-hour hour crisis hotline for domestic abuse at The exam, history, and the medical decision-making described in the above note were completed with the assistance of the mid-level provider. I reviewed and agree with the findings presented. I attest that I had a [id number] encounter with the patient on the same day, and personally performed and documented my assessment and findings in the medical record. MD Harper Valladares Hilary Elizabeth PA Nov 12, 2016 15:50 Montrell Montiel MD Nov 13, 2016 04:05
[2016-11-12] MEDS ORDERED: AMOX250S2 PO (15:51)
--- NOTE | 2016-11-12 15:57 | HHI.DS ---
Rakel Saleem 11/12/16 1556: Discharge Summary Admission Date Nov 11, 2016 at 08:45 Discharge Date: Nov 12, 2016 Admitting Diagnosis Significant dysphagia, poor oral intake, weight loss. History of Stage III lung cancer. (1) Dysphagia Diagnosis: Principal (2) Hx of cancer of lung Diagnosis: Principal Procedures EGD with dilation on 11/12/16 Brief History 75-year-old female with history of Stage III non-small cell lung cancer. Recently patient developed difficulty swallowing and was referred to GI. An EGD showed an esophageal stricture. Dilation was performed but did not improve her symptoms. She came to the clinic with difficulty swallowing and significant weight loss. Admission to the hospital was arranged. CBC/BMP: 11/12/16 1245 11/12/16 1245 Significant Findings Laboratory Tests Test 11/11/16 11/12/16 11:04 12:45 Neutrophils (%) (Auto) 76.4 % 72.6 % (16.0-70.0) (16.0-70.0) Monocytes (%) (Auto) 8.5 % (0.0-8.0) 8.2 % (0.0-8.0) Neutrophils # (Auto) 8.1 TH/MM3 (1.8-7.7) Potassium Level 3.0 MEQ/L 2.7 MEQ/L (3.5-5.1) (3.5-5.1) Blood Urea Nitrogen 21 MG/DL (7-18) Aspartate Amino Transf 14 U/L (15-37) 10 U/L (15-37) (AST/SGOT) Albumin 3.0 GM/DL 2.8 GM/DL (3.4-5.0) (3.4-5.0) Alanine Aminotransferase 9 U/L (10-53) (ALT/SGPT) Imaging Last Impressions Chest CT 11/11/16 0000 Signed Impressions: Service Date/Time: November 15:31 - CONCLUSION: 1. There is a known pleural-based mass in the posterior left upper lung measuring 2.4 x 1.8 cm. This is decreased in size compared to the prior examination. 2. Central lobar emphysema. 3. No new or acute intrathoracic disease. Keenan Hernandez MD Abdomen/Pelvis CT 11/11/16 0000 Signed Impressions: Service Date/Time: November 15:34 - CONCLUSION: 1. The previously noted adenopathy in the upper abdomen has improved compared to the prior exam. All of the previous prominent lymph nodes have decreased in size. No evidence of any new adenopathy. 2. Stable benign-appearing left renal cyst. 3. Stable diverticulosis of the sigmoid colon without inflammatory changes. 4. No other new or significant changes compared to the prior study. Keenan Hernadnez MD PE at Discharge please see physical exam from progress note on date of discharge Hospital Course Ms. Valdovinos was admitted on 11/11/16. Her home medications were resumed. She was started on IVF. EGD with dilation was performed on 11/12/16. Patient was tolerating full liquid diet and asking to be discharged home. She was discharged home with instructions for follow up. Pt Condition on Discharge: Good Discharge Disposition: Discharge Home Discharge Instructions DIET: Follow Instructions for: Full Liquid Diet Activities you can perform: Regular-No Restrictions Montrell Montiel MD 11/13/16 0320: Discharge Summary CBC/BMP: 11/12/16 1245 11/12/16 1245 Discharge Instructions Additional Information The exam, history, and the medical decision-making described in the above note were completed with the assistance of the mid-level provider. I reviewed and agree with the findings presented. I attest that I had a [id number] encounter with the patient on the same day, and personally performed and documented my assessment and findings in the medical record. Montrell Montiel MD Hematology/Oncology Rakel Saleem Nov 12, 2016 15:56 Montrell Montiel MD Nov 13, 2016 03:20
[2016-11-12] MEDS ORDERED: ENOXAPARIN SODIUM 40 MG/0.4 ML SYRINGE SQ SCH (16:00)
[2016-11-12] MEDS ORDERED: POTASSIUM CHLORIDE 20 MEQ PWD PACKET PO ONE (16:30)
[2016-11-12] MEDS ORDERED: AMOXICILLIN (TRIHYDRATE) 500 MG CAP PO SCH (18:00)
[2016-11-12] MEDS ORDERED: AMITRIPTYLINE HCL 25 MG TAB PO SCH (21:00)
[2016-11-12] MEDS ORDERED: PANTOPRAZOLE SOD 40 MG DELAYED RELEASE TAB PO SCH (21:00)
--- NOTE | 2016-11-13 19:29 | MR ---
cc: MIN GALAVIZ JR., MD DATE: 11/12/2016. PROCEDURE PERFORMED: Esophagogastroduodenoscopy with esophageal dilatation over a guidewire with snare polypectomy. INDICATIONS FOR THE PROCEDURE: 1. Dysphagia. 2. Weight loss. 3. Esophageal stricture. REFERRING PHYSICIAN: Dr. Montiel. DESCRIPTION OF THE PROCEDURE IN DETAIL: After informed consent was obtained, the patient was placed in the left side down position. She was sedated by the anesthesia service. After adequate sedation was achieved, the Pentax pediatric video gastroscope was inserted in the oropharynx and advanced to through the esophagus. The stricture was blocked up with what appeared to be food. Some of the food could not be pulled away. Some of the food was pushed gently through the stricture and down into the stomach. The scope was then advanced down through the stomach region into the descending duodenum. It was then slowly withdrawn examining the mucosal surfaces carefully. A guidewire was then left in place in the gastric antrum and the Savary dilators 11, 12 and 12.8 were sequentially passed down through the esophagus and through the stricture. The guidewire and dilator were then removed together and a re-look examination was performed. The esophagus had been re-dilated. There was a mucosal tear as previously seen with the previous dilatation. There was also a polypoid piece of tissue that was acting as a ball valve mechanism partially blocking the lumen. This was removed using snare polypectomy technique with cautery. The tissue flap was recovered and submitted for a final pathologic evaluation. The scope was then withdrawn and the procedure was terminated. She tolerated the procedure well and was returned to the recovery area in good condition. FINDINGS: 1. In the esophagus, there was a stricture with food blocking the opening. The food was gently pushed into the stomach. 2. Dilatation was performed over a guidewire with Savary dilators 11, 12 and 12.8. A re-look examination showed polypoid tissue lesion acting as a ball valve in the stricture. 3. Polypoid tissue was removed with snare polypectomy technique. 4. The stomach was normal. 5. The duodenum was normal. IMPRESSION: 1. Esophageal stricture due to radiation. 2. Rapid dysphagia recurred because of a tissue flap acting as a ball valve mechanism and food then becoming stuck in the stricture obstructing it. 3. Esophagus re-dilated to 12.8 mm with Savary dilators and tissue flap was removed. RECOMMENDATIONS: 1. The patient should take clear liquids today and then later in the day if she is stable she may take a full liquid diet. 2. Continue proton pump inhibitor intravenously. 3. Medication should be given orally only as a liquid or in a form that can be crushed. 4. Repeat dilatation should be performed in about one week to increase the size to target up 15 mm. Min Galaviz MD [facility]/C /11:30 AM /7:23 PM
[2016-11-17] MEDS ORDERED: HYDR1SOL3 PO (14:30)
[2016-11-17] MEDS ORDERED: POTA10SO12 PO (14:33)
[2016-11-17] MEDS ORDERED: PREV15CA15 PO (14:36)
== END 2016-11-12 16:51 | disposition home or self-care (01) | DRG 392 ==
LOC: HOCB 11-11 08:45
PROVIDERS: ADMIT Internal Medicine; ATTEND Internal Medicine
PROC: 0DB58ZZ Excision of Esophagus, Via Natural or Artificial Opening Endoscopic (ICD-10-PCS; 2016-11-12)
PROC: 0D758ZZ Dilation of Esophagus, Via Natural or Artificial Opening Endoscopic (ICD-10-PCS; principal; 2016-11-12 10:45)
DX: K22.2 Esophageal obstruction (principal); R64 Cachexia; E86.0 Dehydration; J44.9 Chronic obstructive pulmonary disease, unspecified; C34.12 Malignant neoplasm of upper lobe, left bronchus or lung; I10 Essential (primary) hypertension; R62.7 Adult failure to thrive; E03.9 Hypothyroidism, unspecified; Z68.22 Body mass index [BMI] 22.0-22.9, adult; E78.5 Hyperlipidemia, unspecified; H35.30 Unspecified macular degeneration; E87.6 Hypokalemia; Y84.2 Radiological procedure and radiotherapy as the cause of abnormal reaction of the patient, or of later complication, without mention of misadventure at the time of the procedure; Z88.2 Allergy status to sulfonamides; Z92.3 Personal history of irradiation; Z92.21 Personal history of antineoplastic chemotherapy
CPT/HCPCS: 71260; 74177; 80053; 85025; 88305; 88312; C1769; J2997; J3480; J7070; Q0169; Q9967

== ENCOUNTER → 2016-11-19 | Outpatient (CLI) | payer MEDICARE ==
[~2016-11-19] VITALS: Ht 152.4 cm; Wt 54.3 kg
[~2016-11-19] MED LIST changes: -ALBU0.08 NEB; +AMOX250S2 PO; +CHLORHEXIDINE GLUCONATE 2 % 1 PACK (2 CLOTHS) TOPICAL PRN; -CLOR3.755 PO; -HYDR-3533 PO; +HYDR1SOL3 PO; +INSULIN HUMAN REGULAR 1,000 UNITS/10 ML VIAL SQ PRN; +LACTATED RINGER'S 1000 ML IV PRN; -LEVO50TA4 PO; +LEVO75TA3 PO; +METOPROLOL TARTRATE 25 MG TAB PO PRN; -NEBULIZER/ADULT1 KIT; +POTA10SO12 PO; +POVIDONE IODINE 5% (ANTISEPSIS KIT) 4 APPLICATIONS EACH NARE PRN; +PREV15CA15 PO; +PROPOFOL 200 MG/20 ML AMP IV ONE; +SENN1TAB G-TUBE; +SODIUM CHLORID 0.9% 500 ML IV PRN
[2016-11-19 08:44] VITALS: BP 113/59; PULSE 103; RESP 16; TEMP 97.7; O2SAT 95
[2016-11-19 10:51] VITALS: TEMP 97.8
--- NOTE | 2016-11-19 11:08 | HHI.GIFU ---
Subjective Remarks Immediate postop note: EGD with balloon dilatation of esophagus with dilatation over guidewire Indication: Esophageal stricture Meds: MAC Findings: Esophagus stricture closed back to about 6mm diameter, scope would not pass. Balloon dilator passed and dilated to 10.5mm, scope would not pass. dilated to 13mm with balloon and scope would pass. Dilated to 14mm and 15mm with savary dilator over guidewire. scope reinserted and there is deep cut in stricture. mild oozing at the site. No apparent perforation. Stricture is fouled with debris and the inside of stricture was biopsied. Rest of esophagus is normal. Stomach and duodenum and normal Impression: Short stricture with recurrent narrowing, this time dilated to 15mm. Shaggy whitish interior of the stricture could be infection. Prior biopsy specimen showed some won and what appeared to be acinetobacter species Plan: treat for won. Full liquid diet. Repeat dilatation in 1 week, consider placement of stent if stricture closes back rapidly. Objective Vitals I&O Vital Signs Date Time Temp Pulse Resp B/P Pulse Ox O2 Delivery O2 Flow Rate FiO2 11/19/16 08:44 97.7 103 16 113/59 95 Physical Exam HEENT: Pupils round and reactive to light; normocephalic; atraumatic; no jaundice. Throat is clear. NECK: Neck is supple, no JVD, no lymphadenopathy. CHEST: Chest is clear to auscultation and percussion. CARDIAC: Regular rate and rhythm with no murmur gallop or rubs. ABDOMEN: Soft, nondistended, nontender; no hepatosplenomegaly; bowel sounds are present in all four quadrants. EXTREMITIES: No clubbing, cyanosis, or edema. SKIN: Normal; no rash; no jaundice. TRAUMA DIRECTOR: No focal deficits; alert and oriented times three. Assessment and Plan Plan Impression: tight stricture repeatedly closing back uncertain cause. Biopsies again obtained. dilated to 15mm. Previous CT chest showed no evidence of tumor in mediastinum Lung cancer. Plan: followup in office in one week. Await biopsy results. Full liquid diet should be tolerated. Diflucan 100mg daily. Min Galaviz MD Nov 19, 2016 11:07
[2016-11-19 11:11] VITALS: BP 152/68; PULSE 95; RESP 18; O2SAT 94
--- NOTE | 2016-11-19 13:48 | RADRPT ---
EXAM DATE/TIME: 11/19/2016 13:31 [facility] COMPARISON: CT NEEDLE BIOPSY LUNG, LEFT, June 14, 2016, 9:33. CT ABDOMEN & PELVIS W CONTRAST, November 11, 2016, 15:34. INDICATIONS : Post esophagus dilation, rule out perforation. RADIATION DOSE: 3.44 CTDIvol (mGy) MEDICAL HISTORY : Carcinoma, lung. Hypertension. Esophageal stricture. SURGICAL HISTORY : Hysterectomy. Esophageal dilation. ENCOUNTER: Initial ACUITY: 1 day PAIN SCALE: 3/10 LOCATION: Bilateral upper chest TECHNIQUE: Volumetric scanning of the chest was performed. Using automated exposure control and adjustment of t he mA and/or kV according to patient size, radiation dose was kept as low as reasonably achievable to obtain optimal diagnostic quality images. DICOM format image data is available electronically for r eview and comparison. Follow-up recommendations for incidentally detected pulmonary nodules are based at a minimum on nodul e size and patient risk factors according to Fleischner Society Guidelines. FINDINGS: The examination demonstrates a 2.3 x 2.4 cm area of pleural thickening along the posterior aspect of the left lower lobe. There are COPD changes throughout both lungs. There is mild bronchiectasis in th e lung bases. Soft tissue weighted images demonstrate a thickened, inflamed area of the esophagus in the proximal e sophagus. There is abnormal soft tissue extending over into the AP window. This would be concerning f or malignancy. I do not see evidence of a drainable abscess. There is no air within the mediastinum t o suggest perforation. The heart is normal in size. There is atherosclerotic plaque in the coronary arteries. The limited portion of upper abdomen visualized is unremarkable. There degenerative changes within the spine. CONCLUSION: 1. 2.3 x 2.4 cm pleural-based mass in the posterior aspect of the left upper lobe. This has undergone previous CT guided biopsy. It is somewhat smaller in size than on previous. 2. Focal area of abnormal, thickened proximal esophagus with soft tissue extending over into the AP w indow concerning for malignancy. There is no gas within the mediastinum or abscess to indicate perfor ation. Clifford Machado MD on November 19, 2016 at 13:44 Board Certified Radiologist. This report was verified electronically.
--- NOTE | 2016-11-19 21:11 | MR ---
cc: MIN GALAVIZ MD, AWAIS DATE OF PROCEDURE 11/19/2016 PROCEDURE PERFORMED Esophagogastroduodenoscopy with balloon dilatation of the esophagus with dilatation of the esophagus over guidewire. INDICATION Esophageal stricture. REFERRING PHYSICIAN Dr. Montiel. PROCEDURE After informed consent was obtained the patient was placed in left side down position. She was sedated by the anesthesia service. After adequate sedation was achieved the Pentax video gastroscope was inserted in the oropharynx and advanced down into this esophagus at about 25 cm from the incisors. There the stricture appeared to have close back in from the previous dilatation and the scope would not pass. Therefore a guidewire was passed down through the esophagus and through the opening passing easily for about 10 cm. It would then not pass easily. Therefore the scope was removed and a 12.8-mm dilator was passed down over the guidewire and to the end of the wire. It was then pulled back. The esophageal stricture was then examined, it was not dilated. Therefore a balloon dilator was advanced down across the stricture under direct visualization. It was inflated to 10 mm. The dilator was then removed. The scope still would not pass down through the stricture. Therefore an 11, 12 and 13 mm dilator balloon was advanced across the stricture and dilated sequentially reaching 13 mm. The scope was then passed down through the stricture and into the distal esophagus. It was then advanced through the stomach and into the duodenum. It was then withdrawn back to the antrum and the guidewire was left in place. Over the guidewire a 14 mm savory dilator was passed down through the stricture with some resistance. The dilator was then removed and a 15-mm dilator was passed down through the esophagus and through the stricture with some resistance. The dilator and guidewire were then removed and the scope was reinserted demonstrating that dilatation had occurred and there was some fairly deep cut in the side wall of the stricture. There was no apparent perforation. Biopsies were taken from the inside of the stricture and also from the edge of the ulcerated part bordering on what appeared to be normal tissue. The scope was then withdrawn and the procedure was terminated. She tolerated the procedure well and was returned to the recovery area in good condition. FINDINGS 1. The esophagus again showed the stricture which had become narrowed again with internal material that appeared white and shaggy inside the stricture. The stricture was dilated to 15 mm using a combination of the balloon dilator to gain access to the distal esophagus and the savory dilators over guidewire to perform the final dilatation to 15 mm. 2. Post dilatation there is a deep cut in the stricture sidewall, however, no apparent perforation and there was mild oozing but no significant bleeding. Biopsies were obtained from the internal material inside the dilated stricture. 3. The distal esophagus appeared normal. 4. The stomach and duodenum appeared normal. IMPRESSION 1. Short stricture in the proximal esophagus with recurrent narrowing, this time dilated to 15 mm. 2. Shaggy white interior surface of the stricture, possibly could be related to infection, possibly Ilana, although there is no other ilana lesions apparent in the rest of the esophagus. Review of the biopsy specimen from last time showed benign tissue. PLAN 1. We should consider treating for Ilana even though there is no surrounding candidal infection. 2. Full liquid diet. 3. Repeat dilatation in 1 week and consider placement of a stent if stricture closes back rapidly. Min Galaviz MD [facility]/EO /11:19 AM /8:57 PM
--- NOTE | 2016-11-20 10:43 | EKG ---
Date Performed: 11/19/2016 Time Performed: 08:42:02 PTAGE: 75 years EKG: Sinus rhythm POSSIBLE LEFT ATRIAL ENLARGEMENT LOW QRS VOLTAGE IN PRECORDIAL LEADS BORDERLINE ECG PREVIOUS TRACING : 10/13/2016 19.02 DOCTOR: Niranjan Carlton Interpretating Date/Time 11/20/2016 10:41:34
== END ==
LOC: HEND 08:12
PROVIDERS: ATTEND Internal Medicine Gastroenterology
DX: K22.2 Esophageal obstruction (principal); K22.9 Disease of esophagus, unspecified; K20.9 Esophagitis, unspecified; R94.31 Abnormal electrocardiogram [ECG] [EKG]
CPT/HCPCS: 00740; 43245; 43248; 71250; 88305; 93005; C1726; C1769; J1642

== ENCOUNTER 2016-11-28 16:25 | Inpatient (IN) | payer MEDICARE ==
[~2016-11-28] VITALS: Ht 152.4 cm; Wt 52.1 kg
[~2016-11-28 16:25] MED LIST changes: -CHLORHEXIDINE GLUCONATE 2 % 1 PACK (2 CLOTHS) TOPICAL PRN; -INSULIN HUMAN REGULAR 1,000 UNITS/10 ML VIAL SQ PRN; -LACTATED RINGER'S 1000 ML IV PRN; -METOPROLOL TARTRATE 25 MG TAB PO PRN; -POVIDONE IODINE 5% (ANTISEPSIS KIT) 4 APPLICATIONS EACH NARE PRN; -PROPOFOL 200 MG/20 ML AMP IV ONE; -SENN1TAB G-TUBE; -SODIUM CHLORID 0.9% 500 ML IV PRN
[2016-11-28 16:30] VITALS: BP 112/58; PULSE 115; RESP 16; TEMP 97.5; O2SAT 99
[2016-11-28] MEDS ORDERED: SODIUM CHLOR 0.9% 1000 ML INJ 1,000 ML IV SCH (16:43)
[2016-11-28] MEDS ORDERED: ONDANSETRON HCL 4 MG/2 ML VIAL IVP ONE (16:45)
[2016-11-28] MEDS ORDERED: MORPHINE SULFATE 4 MG/ML INJ IV PUSH ONE (16:45)
[2016-11-28 17:04] VITALS: BP 119/51; PULSE 112; RESP 16; O2SAT 99
--- NOTE | 2016-11-28 17:17 | RADRPT ---
EXAM DATE/TIME: 11/28/2016 16:50 [facility] COMPARISON: CHEST SINGLE AP, October 13, 2016, 19:26. INDICATIONS : Short of breath and vomitting. MEDICAL HISTORY : Carcinoma, lung. Chemo and radiation for lung cancer. Esophageal stricture. SURGICAL HISTORY : lung biopsy. ENCOUNTER: Initial ACUITY: 3 days PAIN SCORE: 0/10 LOCATION: Bilateral chest FINDINGS: A single view of the chest demonstrates minimal bibasilar densities, likely atelectasis. Right Medipo rt catheter unchanged. Heart normal in size. Osseous structures are intact. CONCLUSION: Bibasilar densities likely atelectasis. Eric Motley MD on November 28, 2016 at 17:15 Board Certified Radiologist. This report was verified electronically.
[2016-11-28 17:35] LABS: AUTOMATED NEUTROPHIL # 7.7 TH/MM3 (1.8-7.7); BASOPHIL # 0.1 TH/MM3 (0-0.2); BASOPHIL % 0.8 % (0.0-2.0); EOSINOPHIL # 0.1 TH/MM3 (0-0.4); EOSINOPHIL % 0.7 % (0.0-4.0); HEMATOCRIT 47.8 % (35.0-46.0); HEMO FLAGS DIFF FINAL; LYMPH % 15.7 % (9.0-44.0); LYMPHOCYTE # 1.6 TH/MM3 (1.0-4.8); MEAN CELL VOLUME 88.6 FL (80.0-100.0); MEAN CORPUSCULAR HEMOGLOBIN 28.4 PG (27.0-34.0); MEAN CORPUSCULAR HGB CONC 32.1 % (32.0-36.0); MONO % 5.6 % (0.0-8.0); NEUT % 77.2 % (16.0-70.0); PLATELET COUNT 256 TH/MM3 (150-450); RED CELL DISTRIBUTION WIDTH 16.9 % (11.6-17.2)
--- NOTE | 2016-11-28 17:36 | PD ---
HPI Chief Complaint: GI Complaint Time Seen by Provider: 17:32 Travel History International Travel<30 days: No Contact w/Intl Traveler<30days: No Traveled to known affect area: No History of Present Illness HPI 75-year-old female that presents to the ED for evaluation of dysphagia. 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 Patient has had 4 dilations in the past. Last one being done in November [address] Galaviz. Patient follows with Dr. Galaviz for this. Patient states that since Tuesday he she started developing this dysphagia. Per patient since yesterday she's not been able to swallow even her pills secondary to discomfort. She is able to swallow some fluids but today she try doing her fluids as well as her pills and they just came back up. She is able to tolerate her saliva at this time. She denies any recent chemotherapy or radiation. Per patient has not been done since August. She does have a history of lung cancer. She states that she has not really discomfort but she does feel nauseous. No abdominal pain. No bowel movement or urinary issues. Per patient she does feel dehydrated. Allergy to sulfa. PFSH Past Medical History Anxiety: Yes Cancer: Yes (LUNG CA BIOPSY ) Cardiovascular Problems: No High Cholesterol: Yes Chemotherapy: Yes (LUNG CA) Diabetes: No Diminished Hearing: No Endocrine: No Gastrointestinal Disorders: Yes (USING 600 BID ALEVE) Genitourinary: No Hepatitis: No Hiatal Hernia: No Hypertension: Yes Immune Disorder: No Musculoskeletal: No Neurologic: No Psychiatric: Yes (anxiety) Reproductive: No Respiratory: Yes (EMPHYSEMA) Thyroid Disease: Yes Triglycerides - High: Yes ?: Not Menopausal: Yes Past Surgical History Abdominal Surgery: Yes (exploratory lap) AICD: No Body Medical Devices: IMPLANTED PORT RIGHT Cardiac Surgery: No Ear Surgery: No Endocrine Surgery: No Eye Surgery: No Genitourinary Surgery: No Gynecologic Surgery: Yes (hysterectomy) Hysterectomy: Yes Joint Replacement: No Pacemaker: No Thoracic Surgery: No Tonsillectomy: Yes Other Surgery: Yes Social History Alcohol Use: Yes (OCC) Tobacco Use: No (E-CIG) Substance Use: No Allergies-Medications (Allergen,Severity, Reaction): Coded Allergies: Sulfa (Verified Allergy, Severe, SWELLING, 11/28/16) Reported Meds & Prescriptions Reported Meds & Active Scripts Active Amoxicillin Liq (Amoxicillin) 250 Mg/5 Ml Susp 500 Mg PO BID 7 Days Reported Prevacid (Lansoprazole) 15 Mg Capdr Unknown Dose PO DAILY Potassium Chloride Liq (Potassium Chloride) 20 Meq/15 Ml Soln 20 Meq PO DAILY Hydrocodone-Acetaminophen Liq 7.5-325 Mg/15 Ml Soln 10 Ml PO Q6H PRN Levothyroxine (Levothyroxine Sodium) 75 Mcg Tab 75 Mcg PO DAILY Amitriptyline (Amitriptyline HCl) 25 Mg Tab 25 Mg PO HS Lisinopril 10 Mg Tab 10 Mg PO DAILY [Estrogen Patch] 1 Patch TOP WEEKLY Review of Systems Except as stated in HPI: all other systems reviewed are Neg Physical Exam Narrative GENERAL: SKIN: Warm and dry. HEAD: Atraumatic. Normocephalic. EYES: Pupils equal and round. No scleral icterus. No injection or drainage. ENT: No nasal bleeding or discharge. Mucous membranes pink and moist. Tongue is midline. No uvula deviation. NECK: Trachea midline. No JVD. CARDIOVASCULAR: Regular rate and rhythm. No murmurs, S3, S4. RESPIRATORY: No accessory muscle use. Clear to auscultation. Breath sounds equal bilaterally. GASTROINTESTINAL: Abdomen soft, non-tender, nondistended. Hepatic and splenic margins not palpable. MUSCULOSKELETAL: Extremities without clubbing, cyanosis, or edema. No obvious deformities. Full range of motion of the upper and lower extremities bilaterally. 2+ pulses bilaterally. NEUROLOGICAL: Awake and alert. No obvious cranial nerve deficits. Motor grossly within normal limits. Five out of 5 muscle strength in the arms and legs. Normal speech. PSYCHIATRIC: Appropriate mood and affect; insight and judgment normal. Data Data Last Documented VS Vital Signs Date Time Temp Pulse Resp B/P Pulse Ox O2 Delivery O2 Flow Rate FiO2 11/28/16 17:04 112 16 119/51 99 11/28/16 16:30 97.5 Orders Complete Blood Count With Diff (11/28/16 16:43) Comprehensive Metabolic Panel (11/28/16 16:43) Prothrombin Time / Inr (Pt) (11/28/16 16:43) Act Partial Throm Time (Ptt) (11/28/16 16:43) Lipase (11/28/16 16:43) Magnesium (Mg) (11/28/16 16:43) Thyroid Stimulating Hormone (11/28/16 16:43) Chest, Single Ap (11/28/16 16:43) Iv Access Insert/Monitor (11/28/16 16:43) Morphine Inj (Morphine Inj) (11/28/16 16:45) Ondansetron Inj (Zofran Inj) (11/28/16 16:45) Sodium Chlor 0.9% 1000 Ml Inj (Ns 1000 M (11/28/16 16:43) Admit Order (Ed Use Only) (11/28/16 18:56) Labs Laboratory Tests Test 11/28/16 16:55 White Blood Count 10.0 TH/MM3 Red Blood Count 5.40 MIL/MM3 Hemoglobin 15.4 GM/DL Hematocrit 47.8 % Mean Corpuscular Volume 88.6 FL Mean Corpuscular Hemoglobin 28.4 PG Mean Corpuscular Hemoglobin 32.1 % Concent Red Cell Distribution Width 16.9 % Platelet Count 256 TH/MM3 Mean Platelet Volume 8.5 FL Neutrophils (%) (Auto) 77.2 % Lymphocytes (%) (Auto) 15.7 % Monocytes (%) (Auto) 5.6 % Eosinophils (%) (Auto) 0.7 % Basophils (%) (Auto) 0.8 % Neutrophils # (Auto) 7.7 TH/MM3 Lymphocytes # (Auto) 1.6 TH/MM3 Monocytes # (Auto) 0.6 TH/MM3 Eosinophils # (Auto) 0.1 TH/MM3 Basophils # (Auto) 0.1 TH/MM3 CBC Comment DIFF FINAL Differential Comment Prothrombin Time 12.0 SEC Prothromb Time International 1.1 RATIO Ratio Activated Partial 29.9 SEC Thromboplast Time Sodium Level 135 MEQ/L Potassium Level 3.8 MEQ/L Chloride Level 101 MEQ/L Carbon Dioxide Level 24.5 MEQ/L Anion Gap 10 MEQ/L Blood Urea Nitrogen 14 MG/DL Creatinine 0.78 MG/DL Estimat Glomerular Filtration 72 ML/MIN Rate Random Glucose 93 MG/DL Calcium Level 9.2 MG/DL Magnesium Level 1.9 MG/DL Total Bilirubin 0.6 MG/DL Aspartate Amino Transf 21 U/L (AST/SGOT) Alanine Aminotransferase 12 U/L (ALT/SGPT) Alkaline Phosphatase 163 U/L Total Protein 8.4 GM/DL Albumin 2.9 GM/DL Lipase 47 U/L Thyroid Stimulating Hormone 2.270 uIU/ML 3rd Gen [facility] Medical Decision Making Medical Screen Exam Complete: Yes Emergency Medical Condition: Yes Medical Record Reviewed: Yes Interpretation(s) Last Impressions Chest X-Ray 11/28/16 1643 Signed Impressions: Service Date/Time: Monday, November 28, 2016 16:50 - CONCLUSION: Bibasilar densities likely atelectasis. Eric Motley MD CBC & BMP Diagram 11/28/16 16:55 Differential Diagnosis Dysphagia versus esophageal stricture versus inability to eat versus chest pain versus esophagitis Narrative Course 75-year-old female that presents to the ED for evaluation of dysphagia. Patient was properly examined and was found to have signs and symptoms consistent appears to be likely esophageal stricture. She has a history of this in the past and she's had about 4 different gallop patient's in the past. Patient follows with Dr. Galaviz. Last time done in 19 November. It seems like patient gets one of these almost every 2-4 weeks. Case was discussed with Dr. Carty to for GI who recommends admission to medicine and they will scope her tomorrow for further evaluation. She did recommend possible feeding tube as this continues to be an issue but she will assess once she is evaluated by GI. Labs were drawn. Patient was given IV fluids and antiemetics. Labs and imaging showed no sign of acute disease. HEPAS was paged. Dr Fink agrees to admission. Diagnosis Primary Impression: Dysphagia Qualified Code: R13.14 - Esophageal dysphagia Additional Impression: Esophageal stricture Admitting Information Admitting Physician Requests: Admit Faustino Cabrera Nov 28, 2016 17:35
[2016-11-28 17:50] LABS: APTT (PATIENT) 29.9 SEC (24.3-30.1); INTERNATIONAL NORMALIZED RATIO 1.1 RATIO
[2016-11-28 18:02] LABS: ANION GAP 10 MEQ/L (5-15); AST (GOT) 21 U/L (15-37); BICARBONATE 24.5 MEQ/L (21.0-32.0); BLOOD UREA NITROGEN 14 MG/DL (7-18); CHLORIDE 101 MEQ/L (98-107); GLOMERULAR FILTRATION RATE 72 ML/MIN (>89); MAGNESIUM 1.9 MG/DL (1.5-2.5); POTASSIUM 3.8 MEQ/L (3.5-5.1); SODIUM (NA) 135 MEQ/L (136-145)
[2016-11-28 18:13] LABS: ALKALINE PHOSPHATASE 163 U/L (45-117); ALT (GPT) 12 U/L (10-53); TOTAL BILIRUBIN ADULT 0.6 MG/DL (0.2-1.0)
[2016-11-28] MEDS ORDERED: LACTULOSE SYRUP 20 GM/30 ML CUP PO PRN (19:00)
[2016-11-28] MEDS ORDERED: SODIUM CHLORIDE 0.9% FLUSH 10 ML FLUSH IV FLUSH PRN (19:00)
[2016-11-28] MEDS ORDERED: MORPHINE SULFATE 4 MG/ML INJ IV PRN ×2 (19:00)
[2016-11-28] MEDS ORDERED: SENNOSIDES 8.6 MG TAB PO PRN (19:00)
[2016-11-28] MEDS ORDERED: ACETAMINOPHEN 1000 MG/100 ML VIAL IV PRN (19:00)
[2016-11-28] MEDS ORDERED: BISACODYL 10 MG SUPP RECTAL PRN (19:00)
[2016-11-28] MEDS ORDERED: MAGNESIUM HYDROXIDE SUSP 30 ML CUP PO PRN (19:00)
--- NOTE | 2016-11-28 19:02 | HHI.HP ---
[facility] Radha Berumen MD Admission Diagnosis dysphagia, esophageal stricture Diagnoses: (1) Dysphagia Diagnosis: Principal (2) Esophageal stricture Diagnosis: Principal (3) Dehydration Diagnosis: Principal (4) Lung cancer Diagnosis: Principal Travel History International Travel<30 Days: No Contact w/Intl Traveler <30 Da: No Traveled to Known Affected Are: No History of Present Illness This is a 75-year-old female with a PMH of Stage III Lung Ca, s/p Radiation, Esophageal Stricture s/p Dilatation x4 and HTN who presented to the ER w/ complaints of dysphagia x4 days, now unable to swallow liquids. Follows w/ Dr. Galaviz as outpatient, last EGD w/ dilation on 11/19/16 w/ plan for repeat EGD in 1wk and likely stent placement. Dr. Carty consulted by ER physician, plan is for EGD in am for dilatation w/ possible stent placement. On arrival, BP 112 /58, HR 1:15, O2 sat 99% on RA, Afebrile. CBC with mild hemoconcentration, hemoglobin 15.4. Chemistry essentially unremarkable except for GFR 72. INR 1.1. CXR with bibasilar atelectasis. Review of Systems Except as stated in HPI: all other systems reviewed are Neg ROS: 14 point review of systems otherwise negative. Past Family Social History Past Medical History PMH: Stage III Lung Ca, s/p Radiation, Esophageal Stricture s/p Dilatation x4 and HTN Past Surgical History PAST SURGICAL HISTORY: Right Port, Hysterectomy, Tonsillectomy Allergies: Coded Allergies: Sulfa (Verified Allergy, Severe, SWELLING, 11/28/16) Family History PAST FAMILY HISTORY: Reviewed. No h/o DM or CAD Social History PAST SOCIAL HISTORY: Occasional alcohol. History of tobacco. Negative for drugs. Physical Exam Vital Signs Vital Signs Date Time Temp Pulse Resp B/P Pulse Ox O2 Delivery O2 Flow Rate FiO2 11/28/16 17:04 112 16 119/51 99 11/28/16 16:30 97.5 115 16 112/58 99 Physical Exam PE: GENERAL: Very pleasant elderly white female in no acute distress. Family at bedside HEENT: PERRLA, EOMI. No scleral icterus or conjunctival pallor. No lid lag or facial droop. CARDIOVASCULAR: Regular rate and rhythm. No obvious murmurs to auscultation. No chest tenderness to palpation. RESPIRATORY: No obvious rhonchi or wheezing. Clear to auscultation. Breath sounds equal bilaterally. GASTROINTESTINAL: Abdomen soft, non-tender, nondistended. BS normal. MUSCULOSKELETAL: Extremities without clubbing, cyanosis, or edema. No obvious deformities. NEUROLOGICAL: Awake, alert and oriented x4. No focal neurologic deficits. Moving both upper and lower extremities spontaneously. Laboratory Laboratory Tests Test 11/28/16 16:55 White Blood Count 10.0 Red Blood Count 5.40 Hemoglobin 15.4 Hematocrit 47.8 Mean Corpuscular Volume 88.6 Mean Corpuscular Hemoglobin 28.4 Mean Corpuscular Hemoglobin 32.1 Concent Red Cell Distribution Width 16.9 Platelet Count 256 Mean Platelet Volume 8.5 Neutrophils (%) (Auto) 77.2 Lymphocytes (%) (Auto) 15.7 Monocytes (%) (Auto) 5.6 Eosinophils (%) (Auto) 0.7 Basophils (%) (Auto) 0.8 Neutrophils # (Auto) 7.7 Lymphocytes # (Auto) 1.6 Monocytes # (Auto) 0.6 Eosinophils # (Auto) 0.1 Basophils # (Auto) 0.1 CBC Comment DIFF FINAL Differential Comment Prothrombin Time 12.0 Prothromb Time International 1.1 Ratio Activated Partial 29.9 Thromboplast Time Sodium Level 135 Potassium Level 3.8 Chloride Level 101 Carbon Dioxide Level 24.5 Anion Gap 10 Blood Urea Nitrogen 14 Creatinine 0.78 Estimat Glomerular Filtration 72 Rate Random Glucose 93 Calcium Level 9.2 Magnesium Level 1.9 Total Bilirubin 0.6 Aspartate Amino Transf 21 (AST/SGOT) Alanine Aminotransferase 12 (ALT/SGPT) Alkaline Phosphatase 163 Total Protein 8.4 Albumin 2.9 Lipase 47 Thyroid Stimulating Hormone 2.270 3rd Gen Result Diagram: 11/28/16165411/28/161654 Assessment and Plan Problem List: (1) Dysphagia ICD Code: R13.10 Status: Acute (2) Esophageal stricture ICD Code: K22.2 Status: Acute (3) Dehydration ICD Code: E86.0 Status: Acute (4) Lung cancer ICD Code: C34.90 Status: Acute Assessment and Plan A/P: 1. Dysphagia: x4 days, initially to solids, now w/ progressive dysphagia to liquids, h/o same requiring dilatation. Hold PO medications, convert to IV. 2. Esophageal Stricture: h/o Radiation w/ subsequent stricture, s/p EGD w/ dilatation x4, last procedure 11/19/[address] Galaviz w/ plans for repeat EGD w / possible stent. Dr. Carty consulted by ER physician, plan is for EGD in am for dilatation w/ possible stent. Pt hesitant to stay, however now agreeable to admission and procedure. NPO, IVF, analgesics/antiemetics as needed. May require PEG if symptoms recurrent. 3. Dehydration: GFR 72. BUN/Creat normal, secondary to poor PO intake from dysphagia. IVF for hydration, repeat labs in am 4. Lung CA: Stage III. Follows w/ Dr. Montiel as outpatient. S/p Chemo/ Radiation. 5. DVT Prophylaxis: SCD/Teds. 6. Social work for d/c planning as needed. 7. Case discussed w/ ER physician at length. Physician Certification 2 Midnight Certification Type: Admission for Inpatient Services Order for Inpatient Services The services are ordered in accordance with Medicare regulations or non- Medicare payer requirements, as applicable. In the case of services not specified as inpatient-only, they are appropriately provided as inpatient services in accordance with the 2-midnight benchmark. Estimated LOS (days): 2 days is the estimated time the patient will need to remain in the hospital, assuming treatment plan goals are met and no additional complications. Post-Hospital Plan: Not yet determined Problem Qualifiers (1) Dysphagia: Qualified Code: R13.14 - Esophageal dysphagia Dorothy Ronquillo MD Nov 28, 2016 19:02
[2016-11-28 19:24] VITALS: BP 116/57; PULSE 104; RESP 24; O2SAT 93
[2016-11-28] MEDS ORDERED: RESP: ALBUTEROL 2.5 MG/IPRATROPIUM 0.5 MG NEB (PRN) NEB (20:00)
[2016-11-28] MEDS: SODIUM CHLOR 0.9% 1000 ML INJ 1,000 ML IV SCH (20:07)
[2016-11-28] MEDS: SODIUM CHLORIDE 0.9% FLUSH 10 ML FLUSH IV FLUSH SCH (21:00)
[2016-11-28] MEDS: DOCUSATE SODIUM 50 MG/SENNA 8.6 MG TAB PO SCH (21:00)
[2016-11-28 21:30] VITALS: O2SAT 93
[2016-11-28 22:04] VITALS: BP 109/54; PULSE 100; RESP 17; TEMP 97.2; O2SAT 92
[2016-11-29] VITALS (7 sets, daily range): BP systolic 106–172; BP diastolic 52–88; PULSE 94–111; RESP 17–20; TEMP 96.1–98.8; O2SAT 92–94
[2016-11-29] MEDS: SODIUM CHLOR 0.9% 1000 ML INJ 1,000 ML IV SCH ×2 (04:54→16:42)
[2016-11-29] MEDS: ONDANSETRON HCL 4 MG/2 ML VIAL IVP PRN ×2 (06:26→12:15)
[2016-11-29 07:11] LABS: AUTOMATED NEUTROPHIL # 5.9 TH/MM3 (1.8-7.7); BASOPHIL # 0.1 TH/MM3 (0-0.2); BASOPHIL % 0.8 % (0.0-2.0); EOSINOPHIL # 0.1 TH/MM3 (0-0.4); HEMATOCRIT 38.4 % (35.0-46.0); HEMO FLAGS DIFF FINAL; LYMPH % 17.4 % (9.0-44.0); LYMPHOCYTE # 1.4 TH/MM3 (1.0-4.8); MEAN CELL VOLUME 86.6 FL (80.0-100.0); MEAN CORPUSCULAR HEMOGLOBIN 28.8 PG (27.0-34.0); MEAN CORPUSCULAR HGB CONC 33.2 % (32.0-36.0); MONO % 6.6 % (0.0-8.0); NEUT % 74.2 % (16.0-70.0); PLATELET COUNT 223 TH/MM3 (150-450); RED BLOOD COUNT 4.43 MIL/MM3 (4.00-5.30); RED CELL DISTRIBUTION WIDTH 17.1 % (11.6-17.2)
[2016-11-29 07:40] LABS: ALKALINE PHOSPHATASE 128 U/L (45-117); ALT (GPT) 10 U/L (10-53); ANION GAP 12 MEQ/L (5-15); AST (GOT) 14 U/L (15-37); BLOOD UREA NITROGEN 11 MG/DL (7-18); CHLORIDE 108 MEQ/L (98-107); GLOMERULAR FILTRATION RATE 107 ML/MIN (>89); POTASSIUM 3.9 MEQ/L (3.5-5.1); SODIUM (NA) 142 MEQ/L (136-145); TOTAL BILIRUBIN ADULT 0.6 MG/DL (0.2-1.0)
[2016-11-29] MEDS: DOCUSATE SODIUM 50 MG/SENNA 8.6 MG TAB PO SCH (08:39)
[2016-11-29] MEDS: SODIUM CHLORIDE 0.9% FLUSH 10 ML FLUSH IV FLUSH SCH ×2 (09:00→21:00)
--- NOTE | 2016-11-29 09:43 | PD.CONS ---
HPI History of Present Illness This is a 75 year old female with a PMH of Stage III Lung Ca, s/p Radiation/ chemo which ended in August, recurrent Esophageal Stricture s/p Dilatation x4 and HTN who presented to the ER w/ complaints of dysphagia x4 days, now unable to swallow liquids. Last EGD with Dr. Galaviz EGD w/ dilation on 11/19/16----> short stricture in the proximal esophagus with recurrent narrowing, this dilated to 15 mm, shaggy White interior surface to of the stricture, bx being. w/ plan for repeat EGD in 1wk and likely stent placement w/ plan for repeat EGD in 1wk and likely stent placement. She has lost close to 30 ibs since August. She is very frustrated having to have frequent EGDs in short period of time. She denies any other associated symptoms, her main issue is swallowing. Denies hematemesis, abd pain, change in appetite, melena or hematochezia (Tommie Pino) PFSH Past Medical History PMH: Stage III Lung Ca, s/p Radiation, Esophageal Stricture s/p Dilatation x4 and HTN Past Surgical History PAST SURGICAL HISTORY: Right Port, Hysterectomy, Tonsillectomy (Tommie Pino) Coded Allergies: Sulfa (Verified Allergy, Severe, SWELLING, 11/28/16) Medications Current Medications Medications (Trade) Dose Ordered Sig/Alla Route Start Time Stop Time Status Last Admin (NS 1000 ml Inj) 1,000 ml @ 100 mls/hr Q10H IV 11/28/16 18:59 11/29/16 04:54 (NS Flush) 2 ml UNSCH PRN IV FLUSH 11/28/16 19:00 (NS Flush) 2 ml BID IV FLUSH 11/28/16 21:00 (Zofran Inj) 4 mg Q6H PRN IVP 11/28/16 19:00 11/29/16 06:26 (Morphine Inj) 1 mg Q3H PRN IV 11/28/16 19:00 11/29/16 06:27 (Morphine Inj) 2 mg Q3H PRN IV 11/28/16 19:00 (Ofirmev Inj) 1,000 mg Q6H PRN IV 11/28/16 19:00 11/29/16 13:01 (Danielle-Colace) 1 tab BID PO 11/28/16 21:00 (Milk Of Magnesia Liq) 30 ml Q12H PRN PO 11/28/16 19:00 (Senokot) 17.2 mg Q12H PRN PO 11/28/16 19:00 (Dulcolax Supp) 10 mg DAILY PRN RECTAL 11/28/16 19:00 (Lactulose Liq) 30 ml DAILY PRN PO 11/28/16 19:00 Family History Non contributory Social History PAST SOCIAL HISTORY: Occasional alcohol. History of tobacco. Negative for drugs. (Tommie Pino) Review of Systems Constitutional: COMPLAINS OF: Fatigue, Weight loss Endocrine: DENIES: Polyuria Eyes: DENIES: Double Vision Ears, nose, mouth, throat: DENIES: Hoarseness Respiratory: DENIES: Shortness of breath Cardiovascular: DENIES: Lower Extremity Edema Gastrointestinal: COMPLAINS OF: Difficulty Swallowing, Anorexia, DENIES: Abdominal pain, Black stools, Bloody stools, Constipation, Diarrhea, Nausea, Vomiting, Odynophagia, Swelling of Abdomen, Heartburn, Hematemesis Genitourinary: DENIES: Hematuria Musculoskeletal: DENIES: Neck pain Integumentary: DENIES: Jaundice Hematologic/lymphatic: DENIES: Bruising Immunologic/allergic: DENIES: Eczema Neurologic: DENIES: Abnormal gait Psychiatric: DENIES: Anxiety (Tommie Pino) GI Exam Vitals I&O Vital Signs Date Time Temp Pulse Resp B/P Pulse Ox O2 Delivery O2 Flow Rate FiO2 11/29/16 04:32 98.8 95 17 110/57 92 11/29/16 01:21 97.2 94 17 106/53 94 11/28/16 22:04 97.2 100 17 109/54 92 11/28/16 21:30 93 11/28/16 19:24 104 24 116/57 93 Room Air 11/28/16 17:04 112 16 119/51 99 11/28/16 16:30 97.5 115 16 112/58 99 I/O 11/28/16 11/28/16 11/28/16 11/29/16 11/29/16 11/29/16 07:00 15:00 23:00 07:00 15:00 23:00 Intake Total 240 ml 850 ml Balance 240 ml 850 ml Intake Oral 240 ml 0 ml IV Total 850 ml # Voids 1 4 # Bowel Movements 0 0 Imaging Last Impressions Chest X-Ray 11/28/16 1643 Signed Impressions: Service Date/Time: Monday, November 28, 2016 16:50 - CONCLUSION: Bibasilar densities likely atelectasis. Eric Motley MD Laboratory Test 11/28/16 11/29/16 11/29/16 16:55 05:25 06:25 White Blood Count 10.0 TH/MM3 8.0 TH/MM3 Red Blood Count 5.40 MIL/MM3 4.43 MIL/MM3 Hemoglobin 15.4 GM/DL 12.8 GM/DL Hematocrit 47.8 % 38.4 % Mean Corpuscular Volume 88.6 FL 86.6 FL Mean Corpuscular Hemoglobin 28.4 PG 28.8 PG Mean Corpuscular Hemoglobin 32.1 % 33.2 % Concent Red Cell Distribution Width 16.9 % 17.1 % Platelet Count 256 TH/MM3 223 TH/MM3 Mean Platelet Volume 8.5 FL 8.6 FL Neutrophils (%) (Auto) 77.2 % 74.2 % Lymphocytes (%) (Auto) 15.7 % 17.4 % Monocytes (%) (Auto) 5.6 % 6.6 % Eosinophils (%) (Auto) 0.7 % 1.0 % Basophils (%) (Auto) 0.8 % 0.8 % Neutrophils # (Auto) 7.7 TH/MM3 5.9 TH/MM3 Lymphocytes # (Auto) 1.6 TH/MM3 1.4 TH/MM3 Monocytes # (Auto) 0.6 TH/MM3 0.5 TH/MM3 Eosinophils # (Auto) 0.1 TH/MM3 0.1 TH/MM3 Basophils # (Auto) 0.1 TH/MM3 0.1 TH/MM3 CBC Comment DIFF FINAL DIFF FINAL Differential Comment Prothrombin Time 12.0 SEC Prothromb Time International 1.1 RATIO Ratio Activated Partial 29.9 SEC Thromboplast Time Sodium Level 135 MEQ/L 142 MEQ/L Potassium Level 3.8 MEQ/L 3.9 MEQ/L Chloride Level 101 MEQ/L 108 MEQ/L Carbon Dioxide Level 24.5 MEQ/L 22.0 MEQ/L Anion Gap 10 MEQ/L 12 MEQ/L Blood Urea Nitrogen 14 MG/DL 11 MG/DL Creatinine 0.78 MG/DL 0.55 MG/DL Estimat Glomerular Filtration 72 ML/MIN 107 ML/MIN Rate Random Glucose 93 MG/DL 70 MG/DL Calcium Level 9.2 MG/DL 8.6 MG/DL Magnesium Level 1.9 MG/DL Total Bilirubin 0.6 MG/DL 0.6 MG/DL Aspartate Amino Transf 21 U/L 14 U/L (AST/SGOT) Alanine Aminotransferase 12 U/L 10 U/L (ALT/SGPT) Alkaline Phosphatase 163 U/L 128 U/L Total Protein 8.4 GM/DL 7.0 GM/DL Albumin 2.9 GM/DL 2.3 GM/DL Lipase 47 U/L Thyroid Stimulating Hormone 2.270 uIU/ML 3rd Gen Physical Examination HEENT: normocephalic; atraumatic; no jaundice. NECK: Neck is supple, no JVD, no lymphadenopathy. CHEST: Chest is clear to auscultation and percussion. CARDIAC: Regular rate and rhythm with no murmur gallop or rubs. ABDOMEN: Soft, nondistended, nontender; no hepatosplenomegaly; bowel sounds are present in all four quadrants. EXTREMITIES: No clubbing, cyanosis, or edema. SKIN: Normal; no rash; no jaundice. FUNDRAISER: No focal deficits; alert and oriented times three. (Tommie Pino) Assessment and Plan Plan - Recurrent Esophageal Stricture s/p Dilatation x4 in 2 weeks. Last EGD w/ dilation on 11/19/16----> short stricture in the proximal esophagus with recurrent narrowing, this dilated to 15 mm, shaggy White interior surface to of the stricture, bx being. w/ plan for repeat EGD in 1wk and likely stent placement. - Dysphagia X 4 days, not able to swallow liquids- EGD/stent/possible PEG today - Wt loss of over 30 ibs since August, secondary to above - Stage III Lung Ca, s/p Radiation/ chemo which ended in August, Plan: - NPO - EGD/stent/ possible PEG tube today - Obtain consents - Supportive care - Patient seen and examined by Dr. Monzon and myself and this note is written on his behalf. (Tommie Pino) Physician Comments Patient seen and examined agree with above Continue with current supportive care Monitor labs Plan for an EGD with dilation and possible PEG and possible esophageal stent Further recommendations shall depend on the findings (Sal Monzon MD) Tommie Pino Nov 29, 2016 09:43 Sal Monzon MD Nov 29, 2016 11:09
[2016-11-29] MEDS ORDERED: PROPOFOL 200 MG/20 ML AMP IV ONE (11:00)
[2016-11-29] MEDS ORDERED: ENALAPRILAT 1.25 MG/ML VIAL IV PRN (11:00)
[2016-11-29] MEDS ORDERED: cloNIDine HCL 0.1 MG TAB PO PRN (11:00)
--- NOTE | 2016-11-29 11:15 | PD.PROCEDR ---
GI Procedure REFERRING PHYSICIAN BRIEN PROCEDURE PERFORMED EGD with dilation and PEG placement INDICATION FOR PROCEDURE Esophageal stricture dysphagia radiation esophagitis PROCEDURE: The procedure, risks and benefits were discussed with Ms. Valdovinos and informed consent was obtained. Anesthesia sedated her with Diprivan. She was placed in the left lateral decubitus position. EGD: The Pentax videoscope was introduced through the oropharynx and advanced to the second portion of the duodenum under direct visualization. Retroflexion was performed in the stomach. FINDINGS: The esophagus Mid esophageal stricture with inflammation consistent with recurring radiation esophagitis this was dilated with dilators 12 and 14 postdilatation view reveals a moderate rent we will wait for stent placement when we get an adequate size stent Stomach this was normal Following the evaluation of the stomach and the duodenum the stomach was insufflated with air and the area of PEG placement was identified through indentation and transillumination the area was prepped and draped in usual fashion 5 cc of lidocaine were injected locally a small incision was made then an Angiocath was passed into the stomach through which a guidewire was passed this was retrieved with the scope into that a PEG tube was attached and pulled into place and thereafter secured in usual fashion The patient tolerated procedure well and there are no immediate complications The duodenum this was normal ESTIMATED BLOOD LOSS: None SPECIMENS REMOVED: None COMPLICATIONS: None IMPRESSION: Recurring esophageal stricture with radiation esophagitis PLAN: 1. May use PEG tube for medications today 2. May start feeding tomorrow 3. May obtain nutritional consult for tube feeding 4. Flush tube with 50 cc of water every 4-6 hours 5. Always flush tube after feedings 6. Apply abdominal binder as necessary 7. Clamp G-tube after use and flush. Consider repeat EGD with dilation and esophageal stent placement in 2-4 weeks Sal Monzon MD Nov 29, 2016 11:15
[2016-11-29] MEDS: PANTOPRAZOLE SODIUM 40 MG VIAL IV PUSH SCH (12:00)
--- NOTE | 2016-11-29 13:33 | HHI.PR ---
Subjective Remarks Follow-up esophageal stricture. Tolerated procedure complains of pain over G tube site and nausea. Her daughter insists that GI has cleared patient for diet and that GT is for backup. Discussed with RN Objective Vitals Vital Signs Date Time Temp Pulse Resp B/P Pulse Ox O2 Delivery O2 Flow Rate FiO2 11/29/16 12:30 16 11/29/16 12:00 96.1 98 20 172/77 94 11/29/16 11:40 93 18 167/77 94 11/29/16 11:30 93 18 171/84 94 11/29/16 11:20 98.3 95 17 179/84 95 11/29/16 08:00 98.1 95 20 114/52 92 11/29/16 04:32 98.8 95 17 110/57 92 11/29/16 01:21 97.2 94 17 106/53 94 11/28/16 22:04 97.2 100 17 109/54 92 11/28/16 21:30 93 11/28/16 19:24 104 24 116/57 93 Room Air 11/28/16 17:04 112 16 119/51 99 11/28/16 16:30 97.5 115 16 112/58 99 I/O 11/28/16 11/28/16 11/28/16 11/29/16 11/29/16 11/29/16 07:00 15:00 23:00 07:00 15:00 23:00 Intake Total 240 ml 850 ml 400 ml Balance 240 ml 850 ml 400 ml Intake Oral 240 ml 0 ml IV Total 850 ml 400 ml # Voids 1 4 # Bowel Movements 0 0 Result Diagram: 11/29/16 0525 11/29/16 0625 Imaging Last Impressions Chest X-Ray 11/28/16 1643 Signed Impressions: Service Date/Time: Monday, November 28, 2016 16:50 - CONCLUSION: Bibasilar densities likely atelectasis. Eric Motley MD Objective Remarks Well-developed, well-nourished in distress due to pain Regular rate and rhythm Lungs are clear equal expansion Abdomen soft tender over G tube site Alert and oriented Procedures EGD with esophageal dilatation and G tube placement A/P Problem List: (1) Dysphagia ICD Code: R13.10 Status: Acute (2) Esophageal stricture ICD Code: K22.2 Status: Acute (3) Dehydration ICD Code: E86.0 Status: Acute (4) Lung cancer ICD Code: C34.90 Status: Acute Assessment and Plan Esophageal Stricture: h/o Radiation w/ subsequent stricture, s/p EGD w/ dilatation x4, last procedure 11/19/[address] Galaviz. Tolerated repeat EGD with dilatation and gastrostomy tube placement. Stable continue postoperative care with pain management with IV morphine, GI prophylaxis with PPI and IV hydration pending verification of diet status with GI. Dietitian has been consulted for to feeding recommendations. GT may be used for medications and will start feeding in the morning. Recommended to repeat EGD w/ dilatation and possible stent in 2-4 weeks. Dehydration: GFR 72. BUN/Creat normal, secondary to poor PO intake from dysphagia. IVF for hydration, repeat labs improved Hypertension. Restart home medication when confirmed. Monitor with as needed medication Lung CA: Stage III. Follows w/ Dr. Montiel as outpatient. S/p Chemo/Radiation. DVT Prophylaxis: SCD/Teds. Discharge Planning Possible discharge in 1-2 days Problem Qualifiers (1) Dysphagia: Qualified Code: R13.14 - Esophageal dysphagia Claude Mcintyre MD Nov 29, 2016 13:33
--- NOTE | 2016-11-29 13:35 | HHI.FF ---
Face to Face Verification Diagnosis: (1) Esophageal stricture Physical Therapy Order: Evaluate and Treat, Improve ambulation, Strength and gait training Home Health Nursing Order: Medical education Medication education-adverse effect Wound care and dressing changes Nursing assessment with vital signs Instructions: TF and GT care education I have seen patient Alina Valdovinos on 11/29/16. My clinical findings support the need for the requested home health care services because: Ltd mobility - disease progression Deconditioned w/ increased weakness I certify that my clinical findings support that this patient is homebound because: Need for psychosocial assistance Claude Mcintyre MD Nov 29, 2016 13:35
--- NOTE | 2016-11-29 13:35 | HHI.DCPOC ---
Discharge Care Plan Diagnosis: (1) Esophageal stricture Your Health Problems Are: Difficulty with ADL Exercise Tolerance Goals to Promote Your Health * To prevent worsening of your condition and complications * To maintain your health at the optimal level Directions to Meet Your Goals Take your medications as prescribed Follow your dietary instruction Follow activity as directed Keep your appointments as scheduled Take your immunizations and boosters as scheduled If your symptoms worsen call your PCP, if no PCP go to Urgent Care Center or Emergency Room Smoking is Dangerous to Your Health. Avoid second hand smoke Call the 24-hour hour crisis hotline for domestic abuse at Claude Mcintyre MD Nov 29, 2016 13:35
[2016-11-29] MEDS ORDERED: NALOXONE HCL 0.4 MG/ML AMP IV PUSH PRN (16:15)
[2016-11-29] MEDS: LISINOPRIL 10 MG TAB PO SCH (17:00)
[2016-11-29] MEDS ORDERED: cloNIDine HCL 0.1 MG TAB G-TUBE PRN (17:00)
[2016-11-29] MEDS: LEVOTHYROXINE SODIUM 75 MCG TAB PO SCH (17:00)
[2016-11-29] MEDS: ACETAMINOPHEN 325MG/HYDROcodone 7.5MG/15ML UDC PO PRN ×2 (17:21→23:20)
[2016-11-29] MEDS: POTASSIUM CHLORIDE 25 MEQ EFFERVESCENT TAB NG SCH (18:00)
[2016-11-29] MEDS ORDERED: MAGNESIUM HYDROXIDE SUSP 30 ML CUP G-TUBE PRN (19:00)
[2016-11-29] MEDS: DOCUSATE SODIUM 50 MG/SENNA 8.6 MG TAB G-TUBE SCH (21:00)
[2016-11-29] MEDS ORDERED: AMITRIPTYLINE HCL 25 MG TAB PO SCH (21:00)
[2016-11-30 01:00] VITALS: BP 116/56; PULSE 108; RESP 16; TEMP 97; O2SAT 91
[2016-11-30 05:05] VITALS: BP 121/58; PULSE 102; RESP 17; TEMP 98.1; O2SAT 91
[2016-11-30] MEDS: LEVOTHYROXINE SODIUM 75 MCG TAB PO SCH (05:55)
[2016-11-30] MEDS: ACETAMINOPHEN 325MG/HYDROcodone 7.5MG/15ML UDC PO PRN ×2 (06:01→12:14)
[2016-11-30 08:00] VITALS: BP 113/57; PULSE 121; RESP 18; TEMP 96.6; O2SAT 92
[2016-11-30] MEDS: POTASSIUM CHLORIDE 25 MEQ EFFERVESCENT TAB NG SCH (09:00)
[2016-11-30] MEDS: SODIUM CHLORIDE 0.9% FLUSH 10 ML FLUSH IV FLUSH SCH (09:00)
[2016-11-30] MEDS: DOCUSATE SODIUM 50 MG/SENNA 8.6 MG TAB G-TUBE SCH (09:00)
[2016-11-30] MEDS: LISINOPRIL 10 MG TAB PO SCH (11:17)
[2016-11-30] MEDS: PANTOPRAZOLE SODIUM 40 MG VIAL IV PUSH SCH (11:18)
--- NOTE | 2016-11-30 11:19 | HHI.PR ---
Subjective Remarks Follow-up esophageal stricture. Patient only had a few bites this morning stated she had the same problem prior to dilatation. She tolerated Jell-O last night. Patient not in a good mood to interact was not a good historian and would not elaborate. She does not want speech therapy evaluation and home health care. States her daughter is a nurse who can be trained to administer tube feeding. Discussed with RN and dietitian, patient will be on bolus tube feedings Objective Vitals Vital Signs Date Time Temp Pulse Resp B/P Pulse Ox O2 Delivery O2 Flow Rate FiO2 11/30/16 08:00 96.6 121 18 113/57 92 11/30/16 05:05 98.1 102 17 121/58 91 11/30/16 01:00 97.0 108 16 116/56 91 11/29/16 23:58 92 11/29/16 19:03 16 11/29/16 19:00 96.2 111 18 138/67 92 11/29/16 16:00 96.4 109 20 151/88 92 11/29/16 12:30 16 11/29/16 12:00 96.1 98 20 172/77 94 11/29/16 11:40 93 18 167/77 94 11/29/16 11:30 93 18 171/84 94 11/29/16 11:20 98.3 95 17 179/84 95 I/O 11/29/16 11/29/16 11/29/16 11/30/16 11/30/16 11/30/16 07:00 15:00 23:00 07:00 15:00 23:00 Intake Total 850 ml 400 ml 480 ml 240 ml Balance 850 ml 400 ml 480 ml 240 ml Intake Oral 0 ml 0 ml 480 ml 240 ml IV Total 850 ml 400 ml # Voids 4 1 3 3 # Bowel Movements 0 0 0 0 Result Diagram: 11/29/16 0525 11/29/16 0625 Imaging Last Impressions Chest X-Ray 11/28/16 1643 Signed Impressions: Service Date/Time: Monday, November 28, 2016 16:50 - CONCLUSION: Bibasilar densities likely atelectasis. Eric Motley MD Objective Remarks Well-developed, well-nourished in no distress Lungs are clear equal expansion Abdomen soft sl tender over G tube site Alert and oriented nonfocal Procedures EGD with esophageal dilatation and G tube placement A/P Problem List: (1) Dysphagia ICD Code: R13.10 Status: Acute (2) Esophageal stricture ICD Code: K22.2 Status: Acute (3) Dehydration ICD Code: E86.0 Status: Acute (4) Lung cancer ICD Code: C34.90 Status: Acute Assessment and Plan Esophageal Stricture: h/o Radiation w/ subsequent stricture, s/p EGD w/ dilatation x4, last procedure 11/19/[address] Galaviz. Tolerated repeat EGD with dilatation and gastrostomy tube placement. Stable continue postoperative care with pain management with IV morphine, liquid narcotic, GI prophylaxis with PPI. Dietitian has been consulted for to feeding recommendations as she will require tube feeding for greater than 90 days. Patient received bolus tube feeding and her daughter who is a nurse will be assisting(daughter has been trained by RN and RD and showed proficiency) GT may be used for medications. GI recommended to repeat EGD w/ dilatation and possible stent in 2- 4 weeks. Dehydration: GFR 72. BUN/Creat normal, secondary to poor PO intake from dysphagia. IVF for hydration, repeat labs improved Hypertension. Restart home medication when confirmed. Monitor with as needed medication. Stable Lung CA: Stage III. Follows w/ Dr. Montiel as outpatient. S/p Chemo/Radiation. DVT Prophylaxis: SCD/Teds. Discharge Planning Discharge patient to home with home care. She has improved significantly earlier than expected Condition on discharge: Improved Tube feeding with mechanical soft diet Ad Shraddha activity no driving Rx written: Danielle-Colace and Jevity tube feeding Follow-up with primary care physician in 1 week Problem Qualifiers (1) Dysphagia: Qualified Code: R13.14 - Esophageal dysphagia Claude Mcintyre MD Nov 30, 2016 11:19
[2016-11-30] MEDS ORDERED: SENN1TAB G-TUBE (11:22)
[2016-11-30 12:00] VITALS: BP 138/63; PULSE 104; RESP 18; TEMP 96.4; O2SAT 96
[2016-11-30] MEDS ORDERED: LORazepam 0.5 MG TAB PO PRN (14:30)
--- NOTE | 2016-11-30 17:26 | HHI.GIFU ---
Subjective Remarks Pt sitting up in bed, visiting with friend. She is tolerating TF. (Ai Tim) Objective Vitals I&O Vital Signs Date Time Temp Pulse Resp B/P Pulse Ox O2 Delivery O2 Flow Rate FiO2 11/30/16 12:00 96.4 104 18 138/63 96 11/30/16 08:00 96.6 121 18 113/57 92 11/30/16 05:05 98.1 102 17 121/58 91 11/30/16 01:00 97.0 108 16 116/56 91 11/29/16 23:58 92 11/29/16 19:03 16 11/29/16 19:00 96.2 111 18 138/67 92 I/O 11/29/16 11/29/16 11/29/16 11/30/16 11/30/16 11/30/16 06:59 14:59 22:59 06:59 14:59 22:59 Intake Total 850 ml 400 ml 480 ml 240 ml Balance 850 ml 400 ml 480 ml 240 ml Intake Oral 0 ml 480 ml 240 ml IV Total 850 ml 400 ml # Voids 4 4 3 # Bowel Movements 0 0 0 Imaging Last Impressions Chest X-Ray 11/28/16 1643 Signed Impressions: Service Date/Time: Monday, November 28, 2016 16:50 - CONCLUSION: Bibasilar densities likely atelectasis. Eric Motley MD Physical Exam HEENT: PERRL; normocephalic; atraumatic; no jaundice. CHEST: CTA CARDIAC: RRR ABDOMEN: Soft, nondistended, TTP around tube; PEG dressing clean and dry; no hepatosplenomegaly; bowel sounds are present in all four quadrants. EXTREMITIES: No clubbing, cyanosis, or edema. SKIN: Normal; no rash; no jaundice. DIRECTOR OF PROMOTIONS: No focal deficits; alert and oriented times three. (Ai Tim) Assessment and Plan Plan - Recurrent Esophageal Stricture s/p Dilatation x4 in 2 weeks. Last EGD w/ dilation on 11/19/16----> short stricture in the proximal esophagus with recurrent narrowing, this dilated to 15 mm, shaggy White interior surface to of the stricture, bx being. - Dysphagia X 4 days, not able to swallow liquids- s/p PEG tube, tolerating TF , she will probably need this for primary source of nutrition for >3months. - Wt loss of over 30 ibs since August, secondary to above - Stage III Lung Ca, s/p Radiation/ chemo which ended in August Plan: - TF per nutrition - Supportive care - consider EGD with stent - tolerating TF, stable for d/c from GI standpoint - f/u with GI as outpatient, as scheduled - Patient seen and examined by Dr. Monzon and myself and this note is written on his behalf. (Ai Tim) Physician Comments Patient seen and examined Agree with above Continue with current supportive care Monitor labs (Sal Monzon MD) Ai Tim Nov 30, 2016 17:26 Sal Monzon MD Dec 01, 2016 00:32
== END 2016-11-30 18:27 | disposition home or self-care (01) | DRG 392 ==
LOC: NEPC 16:25 → NEDA 18:57 → N06B 21:15
PROVIDERS: ADMIT Internal Medicine; ATTEND Internal Medicine
PROC: 0DH63UZ Insertion of Feeding Device into Stomach, Percutaneous Approach (ICD-10-PCS; 2016-11-29)
PROC: 0D728ZZ Dilation of Middle Esophagus, Via Natural or Artificial Opening Endoscopic (ICD-10-PCS; principal; 2016-11-29 10:10)
DX: K22.2 Esophageal obstruction (principal); E86.0 Dehydration; R13.19 Other dysphagia; J43.9 Emphysema, unspecified; J98.11 Atelectasis; K20.8 Other esophagitis; I10 Essential (primary) hypertension; Z92.3 Personal history of irradiation; Z92.21 Personal history of antineoplastic chemotherapy; Y84.2 Radiological procedure and radiotherapy as the cause of abnormal reaction of the patient, or of later complication, without mention of misadventure at the time of the procedure; E78.00 Pure hypercholesterolemia, unspecified; Z85.118 Personal history of other malignant neoplasm of bronchus and lung; Z87.891 Personal history of nicotine dependence; E07.9 Disorder of thyroid, unspecified; Z90.710 Acquired absence of both cervix and uterus; E78.1 Pure hyperglyceridemia
CPT/HCPCS: 71010; 80053; 83690; 83735; 84443; 85025; 85610; 85730; 96361; 96374; 96375; C9113; J2270; J2405; J7030

== ENCOUNTER 2016-12-10 11:55 | Inpatient (IN) | payer MEDICARE ==
[~2016-12-10] VITALS: Ht 152.4 cm; Wt 56.0 kg
[~2016-12-10 11:55] MED LIST changes: -AMOX250S2 PO; -PREV15CA15 PO; +SENN1TAB G-TUBE
[2016-12-10 11:57] VITALS: BP 142/64; PULSE 110; RESP 20; TEMP 98.4; O2SAT 96
[2016-12-10] MEDS ORDERED: SODIUM CHLOR 0.9% 1000 ML INJ 1,000 ML IV SCH (12:31)
[2016-12-10 12:33] VITALS: BP 136/63; PULSE 104; RESP 20; O2SAT 94
--- NOTE | 2016-12-10 12:38 | PD ---
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 SENT HERE BY DR HUNG FOR IV ABX, HYDRATION AND OBSERVATION. PFSH Past Medical History Autoimmune Disease: No Anxiety: Yes Depression: No Cancer: Yes (LUNG CANCER) Cardiovascular Problems: Yes High Cholesterol: Yes Chemotherapy: Yes (COMPLETE) Diabetes: No Diminished Hearing: No Endocrine: No Gastrointestinal Disorders: Yes (USING [address]LEVE) Genitourinary: No Hepatitis: No Hiatal Hernia: No Hypertension: Yes Immune Disorder: No Musculoskeletal: No Neurologic: No Psychiatric: Yes Reproductive: No Respiratory: Yes (LUNG CA) Radiation Therapy: Yes Thyroid Disease: Yes Triglycerides - High: Yes ?: Not Menopausal: Yes Past Surgical History Abdominal Surgery: Yes (exploratory lap) AICD: No Body Medical Devices: INFUSAPORT RIGHT CHEST Cardiac Surgery: No Ear Surgery: No Endocrine Surgery: No Eye Surgery: No Genitourinary Surgery: No Gynecologic Surgery: Yes (hysterectomy) Hysterectomy: Yes Joint Replacement: No Pacemaker: No Thoracic Surgery: No Tonsillectomy: Yes Other Surgery: Yes Social History Alcohol Use: Yes (OCC) Tobacco Use: No (E-CIG) Substance Use: No Allergies-Medications (Allergen,Severity, Reaction): Coded Allergies: Sulfa (Verified Allergy, Severe, SWELLING, 12/10/16) Reported Meds & Prescriptions Reported Meds & Active Scripts Active Reported Amoxicillin Liq (Amoxicillin) 125 Mg/5 Ml Susp Unknown Dose PO TID 75 mg (3 mL). Take for 10 days. Hydrocodone-Acetaminophen Liq 7.5-325 Mg/15 Ml Soln 10 Ml PO Q6H PRN Levothyroxine (Levothyroxine Sodium) 75 Mcg Tab 75 Mcg PO DAILY Amitriptyline (Amitriptyline HCl) 25 Mg Tab 25 Mg PO HS Lisinopril 10 Mg Tab 10 Mg PO DAILY [Estrogen Patch] 1 Patch TOP WEEKLY Review of Systems Except as stated in HPI: all other systems reviewed are Neg Gastrointestinal: Positive: Other (PEG TUBE STOMA DRAINAGE) Physical Exam Narrative GENERAL: SKIN: Warm and dry. HEAD: Atraumatic. Normocephalic. EYES: Pupils equal and round. No scleral icterus. No injection or drainage. ENT: No nasal bleeding or discharge. Mucous membranes pink and moist. NECK: Trachea midline. No JVD. CARDIOVASCULAR: Regular rate and rhythm. RESPIRATORY: No accessory muscle use. Clear to auscultation. Breath sounds equal bilaterally. GASTROINTESTINAL: Abdomen soft, non-tender, nondistended. PEG TUBE STOMA ON LUQ IS ERYTHEMATOUS/TTP/AND DRAINING (SWABBED AND SENT TO LAB) MUSCULOSKELETAL: Extremities without clubbing, cyanosis, or edema. No obvious deformities. NEUROLOGICAL: Awake and alert. No obvious cranial nerve deficits. Motor grossly within normal limits. Five out of 5 muscle strength in the arms and legs. Normal speech. PSYCHIATRIC: Appropriate mood and affect; insight and judgment normal. Data Data Last Documented VS Vital Signs Date Time Temp Pulse Resp B/P Pulse Ox O2 Delivery O2 Flow Rate FiO2 12/10/16 14:20 20 12/10/16 12:33 104 136/63 94 Room Air 12/10/16 11:57 98.4 Orders Complete Blood Count With Diff (12/10/16 12:31) Comprehensive Metabolic Panel (12/10/16 12:31) Lipase (12/10/16 12:31) Prothrombin Time / Inr (Pt) (12/10/16 12:31) Act Partial Throm Time (Ptt) (12/10/16 12:31) Iv Access Insert/Monitor (12/10/16 12:31) Ecg Monitoring (12/10/16 12:31) NPO (12/10/16 12:31) Sodium Chlor 0.9% 1000 Ml Inj (Ns 1000 M (12/10/16 12:31) Clindamycin Inj (Cleocin Inj) (12/10/16 12:45) Hydromorphone Pf Inj (Dilaudid Pf Inj) (12/10/16 13:30) Admit To Inpatient (12/10/16 ) Vital Signs (Adult) EDDIE.Q4H (12/10/16 14:51) Activity Oob With Assistance (12/10/16 14:51) Diet Npo (12/10/16 Dinner) Resp Oxygen Brandon C Titrat 1-4 L (12/10/16 ) Sodium Chlor 0.9% 1000 Ml Inj (Ns 1000 M (12/10/16 15:00) Sodium Chloride 0.9% Flush (Ns Flush) (12/10/16 21:00) Inpatient Certification (12/10/16 ) Labs Laboratory Tests Test 12/10/16 13:00 White Blood Count 13.6 TH/MM3 Red Blood Count 4.32 MIL/MM3 Hemoglobin 12.1 GM/DL Hematocrit 36.5 % Mean Corpuscular Volume 84.5 FL Mean Corpuscular Hemoglobin 27.9 PG Mean Corpuscular Hemoglobin 33.1 % Concent Red Cell Distribution Width 17.2 % Platelet Count 397 TH/MM3 Mean Platelet Volume 8.3 FL Neutrophils (%) (Auto) 80.3 % Lymphocytes (%) (Auto) 11.4 % Monocytes (%) (Auto) 7.5 % Eosinophils (%) (Auto) 0.3 % Basophils (%) (Auto) 0.5 % Neutrophils # (Auto) 10.9 TH/MM3 Lymphocytes # (Auto) 1.6 TH/MM3 Monocytes # (Auto) 1.0 TH/MM3 Eosinophils # (Auto) 0.0 TH/MM3 Basophils # (Auto) 0.1 TH/MM3 CBC Comment DIFF FINAL Differential Comment Prothrombin Time 12.3 SEC Prothromb Time International 1.1 RATIO Ratio Activated Partial 27.9 SEC Thromboplast Time Sodium Level 140 MEQ/L Potassium Level 3.0 MEQ/L Chloride Level 97 MEQ/L Carbon Dioxide Level 34.5 MEQ/L Anion Gap 9 MEQ/L Blood Urea Nitrogen 20 MG/DL Creatinine 0.58 MG/DL Estimat Glomerular Filtration 101 ML/MIN Rate Random Glucose 98 MG/DL Calcium Level 8.7 MG/DL Magnesium Level 2.1 MG/DL Total Bilirubin 0.6 MG/DL Aspartate Amino Transf 15 U/L (AST/SGOT) Alanine Aminotransferase 10 U/L (ALT/SGPT) Alkaline Phosphatase 133 U/L Total Protein 7.3 GM/DL Albumin 2.4 GM/DL Lipase 48 U/L [facility] Medical Decision Making Medical Screen Exam Complete: Yes Emergency Medical Condition: Yes Medical Record Reviewed: Yes Differential Diagnosis INFECTED PEG TUBE SITE V DEHYDRATION V ELECTROLYTE ABNL Narrative Course patient was found to have cellulitc changes at former peg tube site. hypokalemia, and some dehydration....dr hung's request verbalized to hospitalist Diagnosis Primary Impression: Dehydration Additional Impression: hypokalemia Admitting Information Admitting Physician Requests: Observation Shahzad Cespedes MD Dec 10, 2016 12:38
[2016-12-10] MEDS ORDERED: CLINDAMYCIN INJ 600 MG in SODIUM CHLORIDE 0.9% INJ 100 ML IV ONE (12:45)
[2016-12-10] MEDS ORDERED: AMOX125S2 PO (13:11)
[2016-12-10 13:17] LABS: AUTOMATED NEUTROPHIL # 10.9 TH/MM3 (1.8-7.7); BASOPHIL # 0.1 TH/MM3 (0-0.2); BASOPHIL % 0.5 % (0.0-2.0); EOSINOPHIL % 0.3 % (0.0-4.0); HEMATOCRIT 36.5 % (35.0-46.0); HEMO FLAGS DIFF FINAL; LYMPH % 11.4 % (9.0-44.0); LYMPHOCYTE # 1.6 TH/MM3 (1.0-4.8); MEAN CELL VOLUME 84.5 FL (80.0-100.0); MEAN CORPUSCULAR HEMOGLOBIN 27.9 PG (27.0-34.0); MEAN CORPUSCULAR HGB CONC 33.1 % (32.0-36.0); MONO % 7.5 % (0.0-8.0); NEUT % 80.3 % (16.0-70.0); PLATELET COUNT 397 TH/MM3 (150-450); RED BLOOD COUNT 4.32 MIL/MM3 (4.00-5.30); RED CELL DISTRIBUTION WIDTH 17.2 % (11.6-17.2); WHITE BLOOD COUNT 13.6 TH/MM3 (4.0-11.0)
[2016-12-10 13:20] LABS: APTT (PATIENT) 27.9 SEC (24.3-30.1); INTERNATIONAL NORMALIZED RATIO 1.1 RATIO; PROTHROMBIN TIME - PATIENT 12.3 SEC (9.8-11.6)
[2016-12-10] MEDS ORDERED: HYDROmorphone HCL PF 1 MG/ML VIAL IV PUSH ONE ×2 (13:30→23:45)
[2016-12-10 13:32] LABS: ALT (GPT) 10 U/L (10-53); ANION GAP 9 MEQ/L (5-15); AST (GOT) 15 U/L (15-37); BICARBONATE 34.5 MEQ/L (21.0-32.0); BLOOD UREA NITROGEN 20 MG/DL (7-18); CHLORIDE 97 MEQ/L (98-107); GLOMERULAR FILTRATION RATE 101 ML/MIN (>89); SODIUM (NA) 140 MEQ/L (136-145)
[2016-12-10 13:34] LABS: ALKALINE PHOSPHATASE 133 U/L (45-117); TOTAL BILIRUBIN ADULT 0.6 MG/DL (0.2-1.0)
--- NOTE | 2016-12-10 15:12 | HHI.PR ---
Objective Vitals Vital Signs Date Time Temp Pulse Resp B/P Pulse Ox O2 Delivery O2 Flow Rate FiO2 12/10/16 14:20 20 12/10/16 12:33 104 20 136/63 94 Room Air 12/10/16 11:57 98.4 110 20 142/64 96 Result Diagram: 12/10/16 1300 12/10/16 1300 Gamaliel Cruz DO Dec 10, 2016 3:12 pm
--- NOTE | 2016-12-10 15:15 | HHI.HP ---
[facility] Service [facility] Primary Care Physician Radha Berumen MD Admission Diagnosis DEHYDRATION, HYPOKALEMIA AND G TUBE SITE INFECTION/CELLULITIS Diagnoses: Travel History International Travel<30 Days: No Contact w/Intl Traveler <30 Da: No Traveled to Known Affected Are: No History of Present Illness esophageal stricture dilated - didn't put stent PEG tube placed recently Started tube feed. Started having discomfort. Site leaking (jevity). Dr. Mclean took it out .. food kept leaking. Skin irritating. No fever, chills. Past Family Social History Past Medical History Left lung cancer 2017 HTN Hypothyoridism Past Surgical History Hysterectomy Ex Lap - found benign lymph node Allergies: Coded Allergies: Sulfa (Verified Allergy, Severe, SWELLING, 12/10/16) Family History Mother - pancreatic bcancer Uncle - colon cancer. Social History Currently does not use tobacco. Uses alcohol occasionally. Physical Exam Vital Signs Vital Signs Date Time Temp Pulse Resp B/P Pulse Ox O2 Delivery O2 Flow Rate FiO2 12/10/16 14:20 20 12/10/16 12:33 104 20 136/63 94 Room Air 12/10/16 11:57 98.4 110 20 142/64 96 Physical Exam GENERAL: This is a well-nourished, well-developed patient, in no apparent distress. SKIN: No rashes, ecchymoses or lesions. Cool and dry. HEAD: Atraumatic. Normocephalic. No temporal or scalp tenderness. EYES: Pupils equal round and reactive. Extraocular motions intact. No scleral icterus. No injection or drainage. ENT: Nose without bleeding, purulent drainage or septal hematoma. Throat without erythema, tonsillar hypertrophy or exudate. Uvula midline. Airway patent. NECK: Trachea midline. No JVD or lymphadenopathy. Supple, nontender, no meningeal signs. CARDIOVASCULAR: Regular rate and rhythm without murmurs, gallops, or rubs. RESPIRATORY: Clear to auscultation. Breath sounds equal bilaterally. No wheezes , rales, or rhonchi. GASTROINTESTINAL: Abdomen soft, non-tender, nondistended. No hepato-splenomegaly , or palpable masses. No guarding. MUSCULOSKELETAL: Extremities without clubbing, cyanosis, or edema. No joint tenderness, effusion, or edema noted. No calf tenderness. Negative Homans sign bilaterally. NEUROLOGICAL: Awake and alert. Cranial nerves II through XII intact. Motor and sensory grossly within normal limits. Five out of 5 muscle strength in all muscle groups. Normal speech. Laboratory Laboratory Tests Test 12/10/16 13:00 White Blood Count 13.6 Red Blood Count 4.32 Hemoglobin 12.1 Hematocrit 36.5 Mean Corpuscular Volume 84.5 Mean Corpuscular Hemoglobin 27.9 Mean Corpuscular Hemoglobin 33.1 Concent Red Cell Distribution Width 17.2 Platelet Count 397 Mean Platelet Volume 8.3 Neutrophils (%) (Auto) 80.3 Lymphocytes (%) (Auto) 11.4 Monocytes (%) (Auto) 7.5 Eosinophils (%) (Auto) 0.3 Basophils (%) (Auto) 0.5 Neutrophils # (Auto) 10.9 Lymphocytes # (Auto) 1.6 Monocytes # (Auto) 1.0 Eosinophils # (Auto) 0.0 Basophils # (Auto) 0.1 CBC Comment DIFF FINAL Differential Comment Prothrombin Time 12.3 Prothromb Time International 1.1 Ratio Activated Partial 27.9 Thromboplast Time Sodium Level 140 Potassium Level 3.0 Chloride Level 97 Carbon Dioxide Level 34.5 Anion Gap 9 Blood Urea Nitrogen 20 Creatinine 0.58 Estimat Glomerular Filtration 101 Rate Random Glucose 98 Calcium Level 8.7 Total Bilirubin 0.6 Aspartate Amino Transf 15 (AST/SGOT) Alanine Aminotransferase 10 (ALT/SGPT) Alkaline Phosphatase 133 Total Protein 7.3 Albumin 2.4 Lipase 48 Result Diagram: 12/10/16 1300 12/10/16 1300 Gamaliel Cruz DO Dec 10, 2016 15:15
[2016-12-10 15:44] VITALS: BP 116/54; PULSE 92; RESP 20; O2SAT 94
[2016-12-10] MEDS ORDERED: Vancomycin Consult Pharmacy 1 EA OTHER SCH (15:45)
[2016-12-10] MEDS: POTASSIUM CHLOR 20 MEQ PREMIX 100 ML IV SCH ×2 (15:46→17:59)
[2016-12-10] MEDS: SODIUM CHLOR 0.9% 1000 ML INJ 1,000 ML IV SCH (15:46)
[2016-12-10] MEDS ORDERED: VANCOMYCIN INJ 1,000 MG in SODIUM CHLOR 0.9% 250 ML INJ 250 ML IV ONE (16:00)
--- NOTE | 2016-12-10 16:47 | PD.CONS ---
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 She completed chemotherapy and radiotherapy on . 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 She has had dilatations and at one point there was talk of an esophageal stent, but she states that the stricture was too small and so that could not be done. She had EGD with PEG tube placement (11/29/16)----> mid esophageal stricture with inflammation consistent with recurring radiation esophagitis, s/p dilation with 12, 14, normal stomach, normal duodenum, s/p peg tube placement. She was evaluated by the advertising associate at that time and they had recommended Jevity 1.5 bolus feedings 240 mls at 8am, 11am, 2pm, 5pm, 8pm with 60ml flushes before feeding and 120cc flushes after feeding. She was then discharged. The patient tells me that she started having pain and drainage from the site a few days ago. She was seen in the office for this on 12/08 . The tube was noted to be dislodged with cellulitis of the surrounding area. The tube was removed, the incision was packed and she was given Augmentin suspension. She reports that since the tube was removed, it has been draining copious amounts of purulent drainage. She called the office last night and was instructed to go to the ER, but she did not. The patient then returned to the office earlier today (12/10/16 ) with significant leakage from the peg tube site, with moderate erythema noted surrounding the site. She was sent to the hospital for IV antibiotics, TPN, and possible I&D. The patient is resting in bed. She c/o tenderness at the abdomen and large amount purulent drainage. She states that this has been worse since the tube was removed. She cannot really tell me if she was eating this week or just using the tube. She states she just had the tube placed and has been using that for feedings up until this happened. She denies fevers/ chills. (Venecia Patel) PFSH Past Medical History Non-small cell carcinoma of the lung, s/p chemo/rdx Esophageal strictures Radiation esophagitis HTN Hypothyroidism COPD Cellulitis PEG tube site GERD Hyperlipidemia Macular degeneration Past Surgical History Hysterectomy Ex Lap - found benign lymph node Biopsy lymph node Pleural biopsy Colonoscopy EGD with dilatation EGD with PEG Tonsillectomy Tubal ligation (Venecia Patel) Coded Allergies: Sulfa (Verified Allergy, Severe, SWELLING, 12/10/16) Medications Allergies Coded Allergies Type Severity Reaction Last Updated Verified Sulfa Allergy Severe SWELLING 12/10/16 Yes Active Scripts Medications Dose Route/Sig Days Date Category Dose Instructions Amoxicillin Liq (Amoxicillin) 125 Mg/5 Ml Susp Unknown Dose PO TID 12/10/16 Reported 75 mg (3 mL). Take for 10 days. Hydrocodone-Acetaminophen Liq 7.5-325 Mg/15 Ml Soln 10 Ml PO Q6H PRN 11/17/16 Reported Levothyroxine (Levothyroxine Sodium) 75 Mcg Tab 75 Mcg PO DAILY 11/12/16 Reported Amitriptyline (Amitriptyline HCl) 25 Mg Tab 25 Mg PO HS 06/14/16 Reported Lisinopril 10 Mg Tab 10 Mg PO DAILY 06/14/16 Reported [Estrogen Patch] 1 Patch TOP WEEKLY 12/05/14 Reported Family History Mother pancreatic cancer Uncle had colon cancer. Social History Currently does not use tobacco. Uses alcohol occasionally. (Venecia Patel) Review of Systems Constitutional: DENIES: Fever, Chills Respiratory: COMPLAINS OF: Shortness of breath (exertion) Cardiovascular: DENIES: Chest pain Gastrointestinal: COMPLAINS OF: Abdominal pain, Difficulty Swallowing, DENIES : Black stools, Bloody stools, Nausea, Vomiting Integumentary: COMPLAINS OF: Abnormal pigmentation, Rash Neurologic: DENIES: Headache Psychiatric: DENIES: Confusion (Venecia Patel) GI Exam Vitals I&O Vital Signs Date Time Temp Pulse Resp B/P Pulse Ox O2 Delivery O2 Flow Rate FiO2 12/10/16 16:20 21 12/10/16 15:44 92 20 116/54 94 Room Air 12/10/16 14:20 20 12/10/16 12:33 104 20 136/63 94 Room Air 12/10/16 11:57 98.4 110 20 142/64 96 Laboratory Test 12/10/16 13:00 White Blood Count 13.6 TH/MM3 Red Blood Count 4.32 MIL/MM3 Hemoglobin 12.1 GM/DL Hematocrit 36.5 % Mean Corpuscular Volume 84.5 FL Mean Corpuscular Hemoglobin 27.9 PG Mean Corpuscular Hemoglobin 33.1 % Concent Red Cell Distribution Width 17.2 % Platelet Count 397 TH/MM3 Mean Platelet Volume 8.3 FL Neutrophils (%) (Auto) 80.3 % Lymphocytes (%) (Auto) 11.4 % Monocytes (%) (Auto) 7.5 % Eosinophils (%) (Auto) 0.3 % Basophils (%) (Auto) 0.5 % Neutrophils # (Auto) 10.9 TH/MM3 Lymphocytes # (Auto) 1.6 TH/MM3 Monocytes # (Auto) 1.0 TH/MM3 Eosinophils # (Auto) 0.0 TH/MM3 Basophils # (Auto) 0.1 TH/MM3 CBC Comment DIFF FINAL Differential Comment Prothrombin Time 12.3 SEC Prothromb Time International 1.1 RATIO Ratio Activated Partial 27.9 SEC Thromboplast Time Sodium Level 140 MEQ/L Potassium Level 3.0 MEQ/L Chloride Level 97 MEQ/L Carbon Dioxide Level 34.5 MEQ/L Anion Gap 9 MEQ/L Blood Urea Nitrogen 20 MG/DL Creatinine 0.58 MG/DL Estimat Glomerular Filtration 101 ML/MIN Rate Random Glucose 98 MG/DL Calcium Level 8.7 MG/DL Magnesium Level 2.1 MG/DL Total Bilirubin 0.6 MG/DL Aspartate Amino Transf 15 U/L (AST/SGOT) Alanine Aminotransferase 10 U/L (ALT/SGPT) Alkaline Phosphatase 133 U/L Total Protein 7.3 GM/DL Albumin 2.4 GM/DL Lipase 48 U/L Date/Time Procedure Status Source Growth 12/10/16 15:15 Gram Stain Received Wound Drainage Pending 12/10/16 15:15 Wound Culture Received Wound Drainage Pending Physical Examination HEENT: Normocephalic; atraumatic; no jaundice. CHEST: CTA, diminished bases. CARDIAC: RRR. ABDOMEN: Soft, nondistended, no hepatosplenomegaly; bowel sounds are present in all four quadrants. PEG tube site with large open site, draining large amount of purulent drainage. She has a large amount erythema surrounding with a paler colored skin tissue directly under the peg tube site. Tender. EXTREMITIES: No clubbing, cyanosis, or edema. SKIN: Normal; no rash; no jaundice. LASER PRINT OPERATOR: No focal deficits; alert and oriented times three. (Venecia Patel [facility]) Assessment and Plan Plan ASSESSMENT: - Cellulitis, PEG tube site infection. Pt came to office on 12/08 for peg tube site pain and drainage. The tube was noted to be dislodged and was completely removed. The incision was packed and she was given Augmentin suspension. She reports that since the tube was removed, it has been draining copious amounts of purulent She was seen in office today (12/10/16) with significant leakage from the peg tube site, with moderate erythema noted surrounding the site. She was sent to the hospital for IV antibiotics, TPN, and possible I&D. She denies fevers/chills. PEG tube site with large open site, draining large amount of purulent drainage. She has a large amount erythema surrounding with a cool paler colored skin tissue directly under the peg tube site. Significant tenderness. WBC 13.6. C/S pending. Estephania Quinones. NPO. CT Scan abdomen and pelvis. GS evaluation. ID evaluation. Juvenile Corrections Officer evaluation for TPN recommendations. - Leukocytosis secondary to above. WBC 13.6. 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 S/P multiple dilatations. She reports that there was some talk of a stent at one point, but that this was not able to be done secondary to the stricture being so tight. EGD with PEG tube placement (11/29/16)----> mid esophageal stricture with inflammation consistent with recurring radiation esophagitis, s/p dilation with 12, 14, normal stomach, normal duodenum, s/p peg tube placement. She was evaluated by the advertising associate at that time and they had recommended Jevity 1.5 bolus feedings 240 mls at 8am, 11am, 2pm , 5pm, 8pm with 60ml flushes before feeding and 120cc flushes after feeding. 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 S/P chemotherapy and radiotherapy, completed on 09/01/16. PET scan scheduled as outpatient. - GERD. PPI - Hypokalemia, HTN, Hypothyroidism, COPD, Hyperlipidemia, Macular degeneration per attending. PLAN: - NPO - Juvenile Corrections Officer evaluation for TPN recommendations - Will initiate TPN via port once recommendations made - CT scan abdomen and pelvis with contrast - PPI - Zosyn - Vanco - GS evaluation for I&D - ID evaluation - Await c/s from peg tube site - Wound care - CBC, BMP in am - Supportive care - Further recommendations to follow based on results of above - Pt seen and examined by Dr. Carty and myself and this note is written on her behalf (Venecia Patel) Physician Comments seen, examined agree with above discussed with patient and daughter add Madeline (Irena Carty MD) Venecia Patel Dec 10, 2016 16:47 Irena Carty MD Dec 10, 2016 18:02
[2016-12-10] MEDS: PIPERACIL-TAZO 4.5 GM PREMIX 100 ML IV SCH (17:59)
[2016-12-10 18:00] VITALS: BP 121/56; PULSE 90; RESP 20; O2SAT 94
[2016-12-10] MEDS: HYDROmorphone HCL PF 1 MG/ML VIAL IV PUSH PRN ×2 (18:39→23:23)
[2016-12-10 20:00] VITALS: BP 122/57; PULSE 89; RESP 18; TEMP 97.7; O2SAT 94
[2016-12-10] MEDS ORDERED: IOHEXOL 350 MG/ML 10 ML VIAL (for RAD DIAG) IV ONE (20:21)
--- NOTE | 2016-12-10 20:45 | RADRPT ---
EXAM DATE/TIME: 12/10/2016 20:17 [place] COMPARISON: CT ABDOMEN & PELVIS W CONTRAST, November 11, 2016, 15:34. INDICATIONS : Cellulitis with drainage. IV CONTRAST: 96 cc Omnipaque 350 (iohexol) IV ORAL CONTRAST: No oral contrast ingested. RADIATION DOSE: 4.84 CTDIvol (mGy) MEDICAL HISTORY : Hypertension. Cardiovascular disease Carcinoma, lung. SURGICAL HISTORY : Hysterectomy. G-tube and reversal ENCOUNTER: Initial ACUITY: 1 day PAIN SCALE: 5/10 LOCATION: abdomen TECHNIQUE: Volumetric scanning of the abdomen and pelvis was performed. Using automated exposure control and ad justment of the mA and/or kV according to patient size, radiation dose was kept as low as reasonably achievable to obtain optimal diagnostic quality images. DICOM format image data is available electro nically for review and comparison. FINDINGS: History states a prior percutaneous gastrostomy tube has been in place. There is focal abnormality i n the anterior abdominal wall with thickening of the rectus muscle and a sinus tract which appears to extend through the rectus into the lumen of the stomach. A sinus tract is best seen on image #21. The rectus muscle on the left side is enlarged to 1.6 cm. No evidence of ascites. There is a modera te-sized left pleural effusion measuring 2 cm. No pleural effusion on the right. The liver, gallbladder, spleen, kidneys, adrenal glands, aorta and pancreas are grossly intact. Prio r CT scan had demonstrated upper abdominal adenopathy. The only enlarged node seen on today's exam i s of the portal region, measures 1.9 cm and is similar in appearance to prior. There are multiple sigmoid diverticula without radiographic evidence of diverticulitis. The configur ation of the diverticula is very similar to prior CT. Urinary bladder margins are smooth. Inguinal region is unremarkable. Wide windows for bony detail demonstrate degenerative changes in the posteri or elements of the lumbar spine. CONCLUSION: 1. Focal thickening of the left rectus muscle with sinus tract extending from the lumen of the stomac h into the rectus, presumably at site of prior percutaneous gastrostomy. 2. Moderate-sized left pleural effusion. No evidence of ascites. 3. 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 4. Sigmoid diverticulosis without radiographic evidence of diverticulitis. Armando Harrington MD on December 10, 2016 at 20:36 Board Certified Radiologist. This report was verified electronically.
[2016-12-10] MEDS: SODIUM CHLORIDE 0.9% FLUSH 10 ML FLUSH IV FLUSH SCH (21:00)
--- NOTE | 2016-12-10 22:41 | HHI.HP ---
[facility] Radha Berumen MD Admission Diagnosis DEHYDRATION, HYPOKALEMIA AND G TUBE SITE INFECTION/CELLULITIS Diagnoses: Chief Complaint: PEG site infection, perforation. Travel History International Travel<30 Days: No Contact w/Intl Traveler <30 Da: No Traveled to Known Affected Are: No History of Present Illness Ms. Valdovinos is a pleasant 76 year old female with a history of NSCLC s/ p chemo-radiation and subsequent development of radiation esophagitis who presents to the ED on 12/10/2016 due to PEG site erythema, significant drainage. Patient underwent esophageal dilatation by GI followed by PEG tube placement in November 2016. She went home and continued PEG tube feeding per power line installer and repairer recommendations. Patient, however, started having abdominal discomfort. She noticed her tube feed is leaking in significant amount from the PEG tube insertion site. She was evaluated by GI clinic where the PEG tube was removed. Due to concern over cellulitis, abx was given and patient went home hoping for healing of her PEG tube insertion site. Unfortunately, copious amount of fluid including any oral intake started draining from the PEG tube insertion site. She was evaluated by GI clinic on 12/10/2016 and was instructed to come to the hospital for further management. Patient denies any fever, chills. Denies any dysuria, hematuria. She has been unable to maintain appreciable amount of oral food intake. No shortness of breath, cough, chest pain. Review of Systems Except as stated in HPI: all other systems reviewed are Neg Past Family Social History Past Medical History Non-small cell carcinoma of the lung, s/p chemo/rdx Esophageal strictures Radiation esophagitis HTN Hypothyroidism COPD Cellulitis PEG tube site GERD Hyperlipidemia Macular degeneration Past Surgical History Hysterectomy Ex Lap - found benign lymph node Biopsy lymph node Pleural biopsy Colonoscopy EGD with dilatation EGD with PEG Tonsillectomy Tubal ligation Reported Medications Amoxicillin Liq (Amoxicillin) 125 Mg/5 Ml Susp Unknown Dose PO TID 75 mg (3 mL). Take for 10 days. Hydrocodone-Acetaminophen Liq 7.5-325 Mg/15 Ml Soln 10 Ml PO Q6H PRN Levothyroxine (Levothyroxine Sodium) 75 Mcg Tab 75 Mcg PO DAILY Amitriptyline (Amitriptyline HCl) 25 Mg Tab 25 Mg PO HS Lisinopril 10 Mg Tab 10 Mg PO DAILY [Estrogen Patch] 1 Patch TOP WEEKLY Allergies: Coded Allergies: Sulfa (Verified Allergy, Severe, SWELLING, 12/10/16) Family History Mother pancreatic cancer Uncle had colon cancer. Social History Currently does not use tobacco. Uses alcohol occasionally. Physical Exam Vital Signs Vital Signs Date Time Temp Pulse Resp B/P Pulse Ox O2 Delivery O2 Flow Rate FiO2 12/10/16 18:00 90 20 121/56 94 Room Air 12/10/16 16:20 21 12/10/16 15:44 92 20 116/54 94 Room Air 12/10/16 14:20 20 12/10/16 12:33 104 20 136/63 94 Room Air 12/10/16 11:57 98.4 110 20 142/64 96 Physical Exam GENERAL: This is a well-nourished, well-developed patient, in no apparent distress. SKIN: No rashes, ecchymoses or lesions. Warm and dry. HEAD: Atraumatic. Normocephalic. No temporal or scalp tenderness. EYES: Pupils equal round and reactive. No injection or drainage. ENT: Nose without bleeding, purulent drainage or septal hematoma. Airway patent. NECK: Trachea midline. No lymphadenopathy. Supple, nontender, no meningeal signs. CARDIOVASCULAR: Regular rate and rhythm without murmurs, gallops, or rubs. No JVD. RESPIRATORY: Clear to auscultation. Breath sounds equal bilaterally. No wheezes , rales, or rhonchi. GASTROINTESTINAL: Abdomen soft, mildly tender to palpation. Large dressing tightly placed over the PEG site, soaked in fluid. MUSCULOSKELETAL: Extremities without clubbing, cyanosis, or edema. NEUROLOGICAL: Awake and alert. Cranial nerves II through XII intact. No focal neurological deficits. Normal speech. Laboratory Laboratory Tests Test 12/10/16 13:00 White Blood Count 13.6 Red Blood Count 4.32 Hemoglobin 12.1 Hematocrit 36.5 Mean Corpuscular Volume 84.5 Mean Corpuscular Hemoglobin 27.9 Mean Corpuscular Hemoglobin 33.1 Concent Red Cell Distribution Width 17.2 Platelet Count 397 Mean Platelet Volume 8.3 Neutrophils (%) (Auto) 80.3 Lymphocytes (%) (Auto) 11.4 Monocytes (%) (Auto) 7.5 Eosinophils (%) (Auto) 0.3 Basophils (%) (Auto) 0.5 Neutrophils # (Auto) 10.9 Lymphocytes # (Auto) 1.6 Monocytes # (Auto) 1.0 Eosinophils # (Auto) 0.0 Basophils # (Auto) 0.1 CBC Comment DIFF FINAL Differential Comment Prothrombin Time 12.3 Prothromb Time International 1.1 Ratio Activated Partial 27.9 Thromboplast Time Sodium Level 140 Potassium Level 3.0 Chloride Level 97 Carbon Dioxide Level 34.5 Anion Gap 9 Blood Urea Nitrogen 20 Creatinine 0.58 Estimat Glomerular Filtration 101 Rate Random Glucose 98 Calcium Level 8.7 Magnesium Level 2.1 Total Bilirubin 0.6 Aspartate Amino Transf 15 (AST/SGOT) Alanine Aminotransferase 10 (ALT/SGPT) Alkaline Phosphatase 133 Total Protein 7.3 Albumin 2.4 Lipase 48 Date/Time Procedure Status Source Growth 12/10/16 15:15 Gram Stain Received Wound Drainage Pending 12/10/16 15:15 Wound Culture Received Wound Drainage Pending Result Diagram: 12/10/16 1300 12/10/16 1300 Imaging Last Impressions Abdomen/Pelvis CT 12/10/16 0000 Signed Impressions: Service Date/Time: Saturday, December 10, 2016 20:17 - CONCLUSION: 1. Focal thickening of the left rectus muscle with sinus tract extending from the lumen of the stomach into the rectus, presumably at site of prior percutaneous gastrostomy. 2. Moderate-sized left pleural effusion. No evidence of ascites. 3. 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 4. Sigmoid diverticulosis without radiographic evidence of diverticulitis. Armando Harrington MD Assessment and Plan Problem List: (1) Abdominal wall sinus ICD Code: K63.2 Status: Acute (2) Non-small cell lung cancer (NSCLC) ICD Code: C34.90 Status: Acute (3) Pleural effusion on left ICD Code: J90 Status: Acute (4) Radiation-induced esophageal stricture ICD Code: K22.2 Status: Acute Assessment and Plan Ms. Valdovinos is a 76 year old female with a history of NSCLC, radiation esophagitis presents to the ED due to complication of the PEG tube insertion site. PEG Tube was removed recently due to large leakage. Patient was advised to come to the hospital due to copious amount of purulent drainage from the PEG tube insertion site which has become a abdominal wall sinus tract. - Abdominal wall sinus - Likely a complication of PEG Tube placement. - Due to purulent drainage, WBC 13.6, we will start patient on broad spectrum Abx - Vancomycin and Zosyn IV. - GI has added IV fluconazole as well. - Discussed with GI, we will consult Infectious disease as well as General surgery. - Patient will likely need surgical intervention including possible debridement. - NPO for now. Continue NS @100cc/hour. - Equipment Service Lead consulted to obtain TPN recommendations. - Radiation induced esophageal stricture - Esophageal dilatation done recently. - Patient will likely need EGD with dilatation and/or stent placement. - History of Non-small cell lung cancer - s/p chemo, radiation therapy. - Left sided pleural effusion - Etiology is not clear. Can be observed. - Currently patient is not requiring any supplemental O2. - If persistent, diagnostic thoracentesis can be considered to rule out lung cancer progression. - Hypokalemia - likely due to GI loss. - Magnesium is 2.1 - K+ is 3.0. Will replace with IV KCL. Full code. Lovenox. Physician Certification 2 Midnight Certification Type: Admission for Inpatient Services Order for Inpatient Services The services are ordered in accordance with Medicare regulations or non- Medicare payer requirements, as applicable. In the case of services not specified as inpatient-only, they are appropriately provided as inpatient services in accordance with the 2-midnight benchmark. Estimated LOS (days): 3 days is the estimated time the patient will need to remain in the hospital, assuming treatment plan goals are met and no additional complications. Post-Hospital Plan: Home Health Gamaliel Cruz DO Dec 10, 2016 22:41
[2016-12-10] MEDS: FLUCONAZOLE 100 MG PREMIX BAG 50 ML IV SCH (23:21)
[2016-12-10] MEDS: ENOXAPARIN SODIUM 40 MG/0.4 ML SYRINGE SQ SCH (23:22)
[2016-12-11] VITALS: BP 118/61; PULSE 86; RESP 17; TEMP 97.8; O2SAT 94
[2016-12-11] MEDS: SODIUM CHLOR 0.9% 1000 ML INJ 1,000 ML IV SCH ×2 (00:23→05:08)
[2016-12-11] MEDS: PIPERACIL-TAZO 4.5 GM PREMIX 100 ML IV SCH ×3 (00:23→17:44)
[2016-12-11 00:54] LABS: AUTOMATED NEUTROPHIL # 11.9 TH/MM3 (1.8-7.7); BASOPHIL # 0.1 TH/MM3 (0-0.2); BASOPHIL % 0.5 % (0.0-2.0); EOSINOPHIL # 0.1 TH/MM3 (0-0.4); EOSINOPHIL % 0.9 % (0.0-4.0); HEMATOCRIT 35.1 % (35.0-46.0); HEMO FLAGS DIFF FINAL; LYMPH % 10.2 % (9.0-44.0); LYMPHOCYTE # 1.5 TH/MM3 (1.0-4.8); MEAN CELL VOLUME 86.2 FL (80.0-100.0); MEAN CORPUSCULAR HEMOGLOBIN 26.9 PG (27.0-34.0); MEAN CORPUSCULAR HGB CONC 31.2 % (32.0-36.0); MONO % 6.4 % (0.0-8.0); PLATELET COUNT 414 TH/MM3 (150-450); RED BLOOD COUNT 4.07 MIL/MM3 (4.00-5.30); RED CELL DISTRIBUTION WIDTH 17.2 % (11.6-17.2); WHITE BLOOD COUNT 14.5 TH/MM3 (4.0-11.0)
[2016-12-11 01:10] LABS: BICARBONATE 32.6 MEQ/L (21.0-32.0); POTASSIUM 3.5 MEQ/L (3.5-5.1)
[2016-12-11 04:00] VITALS: BP 124/59; PULSE 94; RESP 17; TEMP 98; O2SAT 94
[2016-12-11] MEDS: LEVOTHYROXINE SODIUM 75 MCG TAB PO SCH (05:09)
[2016-12-11 05:33] LABS: AUTOMATED NEUTROPHIL # 11.3 TH/MM3 (1.8-7.7); BASOPHIL # 0.1 TH/MM3 (0-0.2); BASOPHIL % 0.4 % (0.0-2.0); EOSINOPHIL # 0.2 TH/MM3 (0-0.4); EOSINOPHIL % 1.3 % (0.0-4.0); HEMATOCRIT 35.9 % (35.0-46.0); HEMO FLAGS DIFF FINAL; LYMPH % 11.2 % (9.0-44.0); LYMPHOCYTE # 1.6 TH/MM3 (1.0-4.8); MEAN CELL VOLUME 85.6 FL (80.0-100.0); MEAN CORPUSCULAR HEMOGLOBIN 27.3 PG (27.0-34.0); MEAN CORPUSCULAR HGB CONC 31.9 % (32.0-36.0); MONO % 7.6 % (0.0-8.0); NEUT % 79.5 % (16.0-70.0); PLATELET COUNT 427 TH/MM3 (150-450); RED CELL DISTRIBUTION WIDTH 17.2 % (11.6-17.2); WHITE BLOOD COUNT 14.2 TH/MM3 (4.0-11.0)
[2016-12-11 06:20] LABS: BICARBONATE 30.9 MEQ/L (21.0-32.0); POTASSIUM 3.4 MEQ/L (3.5-5.1)
[2016-12-11] MEDS: HYDROmorphone HCL PF 1 MG/ML VIAL IV PUSH PRN ×4 (06:45→19:50)
[2016-12-11 08:00] VITALS: BP 117/63; PULSE 90; RESP 18; TEMP 96.7; O2SAT 85
[2016-12-11] MEDS: SODIUM CHLORIDE 0.9% FLUSH 10 ML FLUSH IV FLUSH SCH ×2 (08:40→22:59)
[2016-12-11] MEDS: LISINOPRIL 10 MG TAB PO SCH (08:40)
[2016-12-11] MEDS ORDERED: POTASSIUM CHLORIDE 25 MEQ EFFERVESCENT TAB PO ONE (09:15)
--- NOTE | 2016-12-11 10:20 | HHI.GIFU ---
Subjective Remarks Patient is resting in bed watching TV, collection bag placed at the PEG tube insertion site, dark moderate amount of drainage noted in the bag. (Tommie Pino) Objective Vitals I&O Vital Signs Date Time Temp Pulse Resp B/P Pulse Ox O2 Delivery O2 Flow Rate FiO2 12/11/16 08:00 96.7 90 18 117/63 85 12/11/16 04:00 98.0 94 17 124/59 94 12/11/16 00:00 97.8 86 17 118/61 94 12/10/16 20:00 97.7 89 18 122/57 94 12/10/16 18:00 90 20 121/56 94 Room Air 12/10/16 16:20 21 12/10/16 15:44 92 20 116/54 94 Room Air 12/10/16 14:20 20 12/10/16 12:33 104 20 136/63 94 Room Air 12/10/16 11:57 98.4 110 20 142/64 96 I/O 12/10/16 12/10/16 12/10/16 12/11/16 12/11/16 12/11/16 07:00 15:00 23:00 07:00 15:00 23:00 Intake Total 730 ml 1108 ml Output Total 90 ml 150 ml Balance 730 ml 1018 ml -150 ml Intake Oral 240 ml 240 ml IV Total 490 ml 868 ml Output Drainage Total 90 ml 150 ml # Voids 1 5 # Bowel Movements 1 Laboratory Laboratory Tests Test 12/10/16 12/11/16 12/11/16 13:00 00:33 05:16 White Blood Count 13.6 14.5 14.2 Red Blood Count 4.32 4.07 4.20 Hemoglobin 12.1 10.9 11.5 Hematocrit 36.5 35.1 35.9 Mean Corpuscular Volume 84.5 86.2 85.6 Mean Corpuscular Hemoglobin 27.9 26.9 27.3 Mean Corpuscular Hemoglobin 33.1 31.2 31.9 Concent Red Cell Distribution Width 17.2 17.2 17.2 Platelet Count 397 414 427 Mean Platelet Volume 8.3 8.0 7.8 Neutrophils (%) (Auto) 80.3 82.0 79.5 Lymphocytes (%) (Auto) 11.4 10.2 11.2 Monocytes (%) (Auto) 7.5 6.4 7.6 Eosinophils (%) (Auto) 0.3 0.9 1.3 Basophils (%) (Auto) 0.5 0.5 0.4 Neutrophils # (Auto) 10.9 11.9 11.3 Lymphocytes # (Auto) 1.6 1.5 1.6 Monocytes # (Auto) 1.0 0.9 1.1 Eosinophils # (Auto) 0.0 0.1 0.2 Basophils # (Auto) 0.1 0.1 0.1 CBC Comment DIFF FINAL DIFF FINAL DIFF FINAL Differential Comment Prothrombin Time 12.3 Prothromb Time International 1.1 Ratio Activated Partial 27.9 Thromboplast Time Sodium Level 140 144 144 Potassium Level 3.0 3.5 3.4 Chloride Level 97 103 104 Carbon Dioxide Level 34.5 32.6 30.9 Anion Gap 9 8 9 Blood Urea Nitrogen 20 17 17 Creatinine 0.58 0.46 0.58 Estimat Glomerular Filtration 101 131 101 Rate Random Glucose 98 74 74 Calcium Level 8.7 8.0 8.3 Magnesium Level 2.1 Total Bilirubin 0.6 Aspartate Amino Transf 15 (AST/SGOT) Alanine Aminotransferase 10 (ALT/SGPT) Alkaline Phosphatase 133 Total Protein 7.3 Albumin 2.4 Lipase 48 Lactic Acid Level 1.3 Date/Time Procedure Status Source Growth 12/10/16 15:15 Gram Stain - Final Resulted Wound Drainage 12/10/16 15:15 Wound Culture Resulted Wound Drainage Pending Imaging Last Impressions Abdomen/Pelvis CT 12/10/16 0000 Signed Impressions: Service Date/Time: Saturday, December 10, 2016 20:17 - CONCLUSION: 1. Focal thickening of the left rectus muscle with sinus tract extending from the lumen of the stomach into the rectus, presumably at site of prior percutaneous gastrostomy. 2. Moderate-sized left pleural effusion. No evidence of ascites. 3. 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 4. Sigmoid diverticulosis without radiographic evidence of diverticulitis. Armando Harrington MD Physical Exam HEENT: normocephalic; atraumatic; no jaundice. NECK: Neck is supple, no JVD, no lymphadenopathy. CHEST: Chest is clear to auscultation and percussion. CARDIAC: Regular rate and rhythm with no murmur gallop or rubs. ABDOMEN: Soft, nondistended, nontender; no hepatosplenomegaly; bowel sounds are present in all four quadrants.Collection bag to the site of PEG tube insertion with dark moderate amount of drainage EXTREMITIES: No clubbing, cyanosis, or edema. SKIN: Normal; no rash; no jaundice. APPLIANCE TECHNICIAN: No focal deficits; alert and oriented times three. (AlvarezTommie JAYME) Assessment and Plan Plan ASSESSMENT: - Cellulitis, PEG tube site infection. Abdomen/Pelvis CT 12/10/16 1. Focal thickening of the left rectus muscle with sinus tract extending from the lumen of the stomach into the rectus, presumably at site of prior percutaneous gastrostomy. 2. Moderate-sized left pleural effusion. No evidence of ascites. 3. 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 4. Sigmoid diverticulosis without radiographic evidence of diverticulitis. Pt came to office on 12/08 for peg tube site pain and drainage. The tube was noted to be dislodged and was completely removed. The incision was packed and she was given Augmentin suspension. She reports that since the tube was removed, it has been draining copious amounts of purulent She was seen in office today (12/10/16) with significant leakage from the peg tube site, with moderate erythema noted surrounding the site. She was sent to the hospital for IV antibiotics, TPN, and possible I&D. She denies fevers/chills. PEG tube site with collection drainage bag with moderate amount of dark discharge. WBC 14.2. C/S pending. Estephania Quinones. NPO. GS evaluation. ID evaluation. Industrial Training Specialist evaluation for TPN recommendations. - Leukocytosis secondary to above. 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 S/P multiple dilatations. She reports that there was some talk of a stent at one point, but that this was not able to be done secondary to the stricture being so tight. EGD with PEG tube placement (11/29/16)----> mid esophageal stricture with inflammation consistent with recurring radiation esophagitis, s/p dilation with 12, 14, normal stomach, normal duodenum, s/p peg tube placement. She was evaluated by the medical oncologist at that time and they had recommended Jevity 1.5 bolus feedings 240 mls at 8am, 11am, 2pm , 5pm, 8pm with 60ml flushes before feeding and 120cc flushes after feeding. 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 S/P chemotherapy and radiotherapy, completed on 09/01/16. PET scan scheduled as outpatient. - GERD. PPI - Hypokalemia, HTN, Hypothyroidism, COPD, Hyperlipidemia, Macular degeneration per attending. PLAN: - NPO - Await Industrial Training Specialist evaluation for TPN recommendations - PPI - Zosyn - Vanco - Cont. Diflucan - GS evaluation for I&D pending - ID evaluation pending - Await c/s from peg tube site - CBC in am - Supportive care - Further recommendations to follow based on results of above - Pt seen and examined by Dr. Carty and myself and this note is written on her behalf (Tommie Pino) Physician Comments seen, examined agree with above tpn orders placed (Irena Carty MD) Tommie Pino Dec 11, 2016 10:20 Irena Carty MD Dec 11, 2016 13:33
--- NOTE | 2016-12-11 10:29 | HHI.PR ---
Subjective Remarks Follow-up for abdominal pain Abdominal pain a lot better, /10, colostomy bag in place over the wound with dark serosanguineous drainage and and possibly cause. No fever overnight, denies any nausea, vomiting, diarrhea. Objective Vitals Vital Signs Date Time Temp Pulse Resp B/P Pulse Ox O2 Delivery O2 Flow Rate FiO2 12/11/16 08:00 96.7 90 18 117/63 85 12/11/16 04:00 98.0 94 17 124/59 94 12/11/16 00:00 97.8 86 17 118/61 94 12/10/16 20:00 97.7 89 18 122/57 94 12/10/16 18:00 90 20 121/56 94 Room Air 12/10/16 16:20 21 12/10/16 15:44 92 20 116/54 94 Room Air 12/10/16 14:20 20 12/10/16 12:33 104 20 136/63 94 Room Air 12/10/16 11:57 98.4 110 20 142/64 96 I/O 12/10/16 12/10/16 12/10/16 12/11/16 12/11/16 12/11/16 07:00 15:00 23:00 07:00 15:00 23:00 Intake Total 730 ml 1108 ml Output Total 90 ml 150 ml Balance 730 ml 1018 ml -150 ml Intake Oral 240 ml 240 ml IV Total 490 ml 868 ml Output Drainage Total 90 ml 150 ml # Voids 1 5 # Bowel Movements 1 Result Diagram: 12/11/16 0516 12/11/16 0516 Imaging Last Impressions Abdomen/Pelvis CT 12/10/16 0000 Signed Impressions: Service Date/Time: Saturday, December 10, 2016 20:17 - CONCLUSION: 1. Focal thickening of the left rectus muscle with sinus tract extending from the lumen of the stomach into the rectus, presumably at site of prior percutaneous gastrostomy. 2. Moderate-sized left pleural effusion. No evidence of ascites. 3. 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 4. Sigmoid diverticulosis without radiographic evidence of diverticulitis. Armando Harrington MD Objective Remarks Not in distress, well-nourished, looks stated age PERRL, pink conjunctiva without injection, anicteric Nose without bleeding, airway patent, oropharynx clear Supple neck, no masses or thyromegaly, trachea midline Normal rate and regular rhythm, no murmurs gallops or rubs appreciated. Clear to auscultation and symmetric bilaterally, normal respiratory effort. Normal bowel sounds, soft, mildly tender but better, no induration, colostomy bag on PEG tube site draining sanguinous, mildly suppurative discharge. Extremities without clubbing, cyanosis, or edema. No rash of generalized distribution. Skin is warm and dry. AAO x3, no cranial nerve deficits, moves all 4 extremities, no focal neurologic deficits A/P Problem List: (1) Abdominal wall sinus ICD Code: K63.2 Status: Acute (2) Non-small cell lung cancer (NSCLC) ICD Code: C34.90 Status: Acute (3) Pleural effusion on left ICD Code: J90 Status: Acute (4) Radiation-induced esophageal stricture ICD Code: K22.2 Status: Acute Assessment and Plan Ms. Valdovinos is a 76 year old female with a history of NSCLC, radiation esophagitis presents to the ED due to complication of the PEG tube insertion site. PEG Tube was removed recently due to large leakage. Patient was advised to come to the hospital due to copious amount of purulent drainage from the PEG tube insertion site which has become a abdominal wall sinus tract. Infected Abdominal wall sinus - CT scan of the abdomen showed focal thickening of the left rectus muscle with sinus tract extending from the lumen of the stomach into the rectus, moderate- sized left pleural effusion, no ascites. - Still purulent, increasing leukocytosis, general surgery and infectious disease to evaluate patient. Continue IVF change to D5NS, continue vancomycin, Zosyn, fluconazole. Follow-up wound culture. Continue pain control with intravenous Dilaudid, might need debridement. Nothing by mouth for now, follow- up dietitian input for TPN. GI also following Radiation induced esophageal stricture - Esophageal dilatation done recently. Dietary evaluation pending, start TPN was recommendations her in. GI following. Nothing by mouth. History of Non-small cell lung cancer - s/p chemo, radiation therapy. Left sided pleural effusion - Etiology is not clear. Can be observed. - Currently patient is not requiring any supplemental O2. If persistent, diagnostic thoracentesis can be considered to rule out lung cancer progression. Patient is hypoxic but refusing oxygen, allegedly always with low readings from pulse oximetry, will get an ABG. Check CBC and BMP tomorrow Hypokalemia - likely due to GI loss. Magnesium is 2.1, replace as needed. Hypertension-continue lisinopril Lovenox for DVT prophylaxis Discharge Planning Likely discharge back home. Kayla Martinez MD Dec 11, 2016 10:29
[2016-12-11 12:00] VITALS: BP 139/61; PULSE 89; RESP 17; TEMP 96; O2SAT 91
[2016-12-11] MEDS: DEXT 5%-NACL 0.9% 1000 ML INJ 1,000 ML IV SCH ×2 (12:51→22:25)
[2016-12-11] MEDS: POTASSIUM CHLOR 20 MEQ PREMIX 100 ML IV SCH ×2 (12:51→15:33)
--- NOTE | 2016-12-11 13:02 | HHI.PR ---
Subjective Subjective Notes no acute issues, fistula better controlled with ostomy bag, no fever overnight Objective Vitals/I&O Vital Signs Date Time Temp Pulse Resp B/P Pulse Ox O2 Delivery O2 Flow Rate FiO2 12/11/16 08:00 96.7 90 18 117/63 85 12/10/16 18:00 Room Air 12/10/16 16:20 21 Labs Laboratory Tests Test 12/10/16 12/11/16 12/11/16 13:00 00:33 05:16 White Blood Count 13.6 14.5 14.2 Red Blood Count 4.32 4.07 4.20 Hemoglobin 12.1 10.9 11.5 Hematocrit 36.5 35.1 35.9 Mean Corpuscular Volume 84.5 86.2 85.6 Mean Corpuscular Hemoglobin 27.9 26.9 27.3 Mean Corpuscular Hemoglobin 33.1 31.2 31.9 Concent Red Cell Distribution Width 17.2 17.2 17.2 Platelet Count 397 414 427 Mean Platelet Volume 8.3 8.0 7.8 Neutrophils (%) (Auto) 80.3 82.0 79.5 Lymphocytes (%) (Auto) 11.4 10.2 11.2 Monocytes (%) (Auto) 7.5 6.4 7.6 Eosinophils (%) (Auto) 0.3 0.9 1.3 Basophils (%) (Auto) 0.5 0.5 0.4 Neutrophils # (Auto) 10.9 11.9 11.3 Lymphocytes # (Auto) 1.6 1.5 1.6 Monocytes # (Auto) 1.0 0.9 1.1 Eosinophils # (Auto) 0.0 0.1 0.2 Basophils # (Auto) 0.1 0.1 0.1 CBC Comment DIFF FINAL DIFF FINAL DIFF FINAL Differential Comment Prothrombin Time 12.3 Prothromb Time International 1.1 Ratio Activated Partial 27.9 Thromboplast Time Sodium Level 140 144 144 Potassium Level 3.0 3.5 3.4 Chloride Level 97 103 104 Carbon Dioxide Level 34.5 32.6 30.9 Anion Gap 9 8 9 Blood Urea Nitrogen 20 17 17 Creatinine 0.58 0.46 0.58 Estimat Glomerular Filtration 101 131 101 Rate Random Glucose 98 74 74 Calcium Level 8.7 8.0 8.3 Magnesium Level 2.1 Total Bilirubin 0.6 Aspartate Amino Transf 15 (AST/SGOT) Alanine Aminotransferase 10 (ALT/SGPT) Alkaline Phosphatase 133 Total Protein 7.3 Albumin 2.4 Lipase 48 Lactic Acid Level 1.3 Date/Time Procedure Status Source Growth 12/10/16 15:15 Gram Stain - Final Resulted Wound Drainage 12/10/16 15:15 Wound Culture - Preliminary Resulted Wound Drainage NO GROWTH IN 24 HOURS. Abdomen: Other (soft mild ttp at fisutla, bag in place) A/P Discharge Planning 76 year old female with a history of non-small cell carcinoma of the lung with s /p chemotherapy and radiotherapy, esophageal strictures, PEG tube malfunction , currently with patent fisutla tract, CT scan with no free air or abscess PLAN Ostomy bag to fistula Agree with tpn iv abx pain control consider octreotide and npo if high output will consider other feeding options once infection is controlled, post pyloric dht vs j tube vs esophageal stent, discussed with pt will continue to follow Jese Nice MD Dec 11, 2016 13:01
--- NOTE | 2016-12-11 15:07 | MB ---
cc: MANSI GROSS MD DATE OF CONSULTATION: 12/10/2016 REASON FOR CONSULTATION: Percutaneous endoscopic gastrostomy tube dislodgement. HISTORY OF PRESENT ILLNESS The patient is a 76-year-old female who presents with somewhat complex medical-surgical history. The patient with poorly differentiated [id number] adenocarcinoma of the lung with locally advanced disease, status post chemo radiation 09/01/2016 the patient developed progressive dysphagia. She was found to have esophageal stricturing secondary to radiation. She underwent dilation and percutaneous endoscopic gastrostomy tube placement on 11/29/2016. The patient reports actually several episodes of dilation. She was also notified have inflammation with radiation esophagitis. Percutaneous endoscopic gastrostomy tube was placed. The patient evidently was doing relatively well with her peg tube tolerating tube feedings however, she did develop abdominal pain and drainage from percutaneous endoscopic gastrostomy tube site a few days later. She was seen in the GI office with further evaluation and noted to have dislodgement and cellulitis at this area. This was packed, she was given antibiotics and sent home but given the significant amount of copious drainage and leakage she was told to come that the emergency department. She had further workup including a CT scan which showed no free air or abscess collection. However, persistence large fistulas tract where a previous G-tube was. Surgery was consulted. Further evaluation. On my exam the patient is complaining of significant saturation of current dressings at the percutaneous endoscopic gastrostomy tube site, she does complain of pain, it is 5/10, diffuse, tender, constant. She further denied associated fevers or chills. She has having bowel movements. PAST MEDICAL HISTORY [id number] lung cancer Esophageal stricture and esophagitis Hypertension Hypothyroid Chronic obstructive pulmonary disease. Reflux. Hyperlipidemia. PAST SURGICAL HISTORY: Hysterectomy. Exploratory laparotomies. Benign lymph node. Lymph node biopsy. Pleural biopsy Colonoscopy. Esophagogastroduodenoscopy. Percutaneous endoscopic gastrostomy tube placement. Tonsillectomy. ALLERGIES SULFA MEDICATIONS See EMR. FAMILY HISTORY Mother with pancreatic cancer, colon cancer in uncle. SOCIAL HISTORY: Denies the smoking, EtOH or IVDA. REVIEW OF SYSTEMS GENERAL: Denies fevers or chills. HEAD, EYES, EARS, NOSE, AND THROAT: Denies eye pain, ear pain, NECK: The neck and throat with complaint of stricturing. CARDIOVASCULAR SYSTEM: Denies chest pain or palpitations. GASTROINTESTINAL: Complains of abdominal pain, Peg tube dislodgement. INTEGUMENT: Denies abnormal pain, mentation. Complained of cellulitis. NEUROLOGIC: Denies numbness or tingling. Complained of headache. PSYCHIATRIC: Denies change in mood or sensorium. GENITOURINARY: Denies dysuria, hematuria. ENDOCRINE: Denies polyuria, polydipsia. PHYSICAL EXAMINATION GENERAL: The patient no acute distress. VITAL SIGNS: Temperature 98.4, pulse 104, respiration 20, blood pressure to 136/63, saturation 94% on room air. HEAD, EYES, EARS, NOSE, AND THROAT: Pupils equal round reactive. Normocephalic, atraumatic. NECK: Supple. Trachea midline. LUNGS: Bilateral expansion, nontender. HEART: S1-S2 regular. ABDOMEN: The abdomen is soft, nondistended. Left upper quadrant where given. State to site is fistulous tract to stomach cellulitic tender to palpation evidence of draining contents. EXTREMITIES: Thin, well-perfused, warm. NEUROLOGIC: Alert and oriented x 4, 5/5, moving all extremities. PSYCHIATRIC: Good insight good judgment. LABORATORY AND DIAGNOSTIC DATA WBC 13.6, hemoglobin 12.1, hematocrit 36.5, platelets 1397, sodium 140, potassium three, chloride 97, BUN 28, creatinine 0.5, calcium 8.7, AST 15, ALT 10, bilirubin 0.6, albumin 2.4, lipase 48, INR 1.1. CT scan reviewed by myself thickening rectus muscle on sinus tract with the stomach to rectus previous percutaneous endoscopic gastrostomy tube site. Small pleural effusion. No ascites. No free air. ASSESSMENT The patient 76-year-old female complicated medical-surgical history, status post poorly appreciated lung cancer with chemo radiation who developed esophageal stricturing necessitating feeding access, including peg tube placement. Peg tube as dislodged and intracutaneous fissula currently present. PLAN After full clinical radiological workup the patient with above-named issues. The patient does have the current intracutaneous and a gastric atmospheric fissula as a result of the percutaneous endoscopic gastrostomy tube placement. I discussed with the patient in detail that given her infection the fact that she has had radiation, and poor nutrition this inhibits wound healing and slows progression of wound healing. At this point recommend ostomy appliance to control output, local wound care 1control and IV antibiotics, pain control, TPN for nutrition. We will treat this as controlled fistula. Further discussed with the patient, regarding potential options for other feeding avenues such has; 1. Continued home with port and IV TPN versus post pyloric Dobhoff tube versus laparoscopic jejunostomy tube placement. I told the patient there is no emergency in decision as we will initiate TPN to get adequate calories but there are several other potential possibilities after the patient is stabilized, the infection is controlled and if the patient is desiring future feeding tube we could consider this. The patient stated understanding, agreed and. Would like to consider and continue with treatments. MD GIANFRACNO Trevino/blanka /12:47 PM /2:31 PM
[2016-12-11 16:00] VITALS: BP 131/62; PULSE 98; RESP 17; TEMP 96.7; O2SAT 92
[2016-12-11] MEDS: ONDANSETRON HCL 4 MG/2 ML VIAL IV PUSH PRN (17:43)
[2016-12-11] MEDS: VANCOMYCIN INJ 750 MG in SODIUM CHLOR 0.9% 250 ML INJ 250 ML IV SCH (17:44)
--- NOTE | 2016-12-11 19:31 | MB ---
cc: JAMES LOPEZ ARNP-C DONTFRAID, FRANKLYN F. MD DATE OF CONSULTATION: 12/11/2016 REASON FOR CONSULTATION: PEG-tube site cellulitis. REQUESTING PHYSICIAN: MICHELE Nova. HISTORY OF PRESENT ILLNESS: This is a 76-year-old white female who had a PEG tube placed on 11/29/2016 for nutrition. The patient has a history of esophageal stricture. She also has a history of non-small cell carcinoma poorly differentiated of the lung which is locally advanced to mediastinal lymph nodes. Her last chemotherapy was in August of 2016. The patient was doing bolus feedings through the PEG site and four days ago she started having problems with the PEG where the retaining clam became dislodged away from the abdominal wall and she started having pain and drainage around the PEG tube. The tube was noted to be dislodged and had surrounding erythema. She subsequently had the tube removed and the incision was packed and she was given Augmentin. Since then she has been having copious amounts of drainage. The drainage currently in the bag is a eloy dark brown color. It was reported that she had purulent drainage but she states that the drainage has been the same as it is today. She notes that she has significant abdominal pain. She states the pain was approximately 10/10. She was given pain medicines and she states that she feels a little better now. She states that she is having nausea. She was admitted to the hospital yesterday and she has been started on IV antibiotics. A culture was taken from the wound in the form of a swab. The gram stain showed a few white cells and no organisms. The wound culture has no growth in 24 hours. The patient has a bag applied over the area where the PEG was located and it has 200 mL of fluid within the bag. She notes that the pain is primarily at the left abdomen near the umbilicus. The white count was elevated to 13.6 yesterday. She has been afebrile. The patient states that the last three stools were mucousy in small amounts. Prior to that she states she had a normal bowel movement last evening. PAST MEDICAL HISTORY: 1. Nonsmall cell carcinoma of the lung treated with chemotherapy. 2. Esophageal strictures. 3. Radiation esophagitis. 4. Hypothyroidism. 5. Hypertension. 6. Gastroesophageal reflux disease (GERD). 7. Hyperlipidemia. 8. COPD. 9. Macular degeneration. 10. Hysterectomy. 11. Tonsillectomy. 12. Tubal ligation. ALLERGIES: OXACILLIN. MEDICATIONS: 1. Vancomycin. 2. Fluconazole. 3. Piperacillin / tazobactam. 4. Dilaudid PRN. 5. Lovenox. 6. Synthroid. 7. Prinivil. 8. Elavil. SOCIAL HISTORY: The patient uses E cigarettes. Occasional alcohol. No illicit drugs. She is cared for by a daughter who is a nurse. FAMILY HISTORY Noncontributory. REVIEW OF SYSTEMS: CONSTITUTIONAL: Denies fever or chills. HEAD, EYES, EARS, NOSE, THROAT: No visual blurring or diplopia. No difficulty swallowing or soreness of the throat. NECK: No neck swelling or pain. RESPIRATORY: No cough or shortness of breath or wheezing. CARDIOVASCULAR: No palpitations or chest pain. GASTROINTESTINAL: Positive for nausea. No vomiting. Positive abdominal pain. Drainage from anterior abdominal wall. GENITOURINARY: No urgency, frequency or dysuria. MUSCULOSKELETAL: No muscles aches or pains. INTEGUMENTARY: No skin rash or itching. HEMATOPOIETIC: No easy bruising or bleeding. ENDOCRINE: No polyuria or polydipsia. NEUROLOGIC: No problems with coordination or dizziness. PSYCHIATRIC: No depression or mood alteration. PHYSICAL EXAMINATION: GENERAL: This is a slender female who is in no acute distress. VITAL SIGNS: Temperature of 96 degrees. Blood pressure 139/61, respirations 17. Heart rate 89. HEAD, EYES, EARS, NOSE, THROAT: The head is atraumatic. Extraocular movements grossly intact. Pupils reactive to light. No icterus. Oropharynx with moist mucosa. No visible lesions. NECK: The neck is supple without adenopathy. LUNGS: Clear breath sounds bilaterally. HEART: Regular S1 and S2 without murmurs. No rubs or gallops. CHEST: A chest port is present at the right upper chest wall and appears intact. ABDOMEN: Bowel sounds present, mildly distended, mild tenderness on palpation of the left periumbilical area near the opening where the PEG site was located. The mid-abdomen has an opening with visible mucosa over which there is a bag which is sealed and collects eloy brown drainage. Mild erythema around the PEG site entry wound. RECTAL: Not performed. EXTREMITIES: No clubbing or cyanosis or edema. SKIN: No rash. NEUROLOGIC: Nonfocal. PSYCHIATRIC: The patient is calm and cooperative. LABS: White blood cell count 14.2, platelet count 427,000, hemoglobin 11.5, 79% neutrophils. Creatinine 0.58, BUN 17, sodium 144. Liver function tests normal. IMAGING STUDIES: CT of the abdomen shows focal thickening of the left rectus muscle with a sinus tract extending from the lumen of the stomach into the rectus, presumably at the site of prior percutaneous gastrostomy. Also moderate-sized left pleural effusion. No evidence of ascites. IMPRESSION: 1. 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 2. PEG site cellulitis at the abdominal wall. 3. Leukocytosis. RECOMMENDATIONS: 1. Continue Vancomycin. 2. Continue piperacillin / tazobactam. 3. Continue fluconazole. 4. Obtain another culture of the fluid from the abdomen. 5. Monitor the white blood cell count. 6. I agree with TPN to allow the fistula to close off. Thank you for this consultation. I will follow the patient and monitor the cultures and will adjust antibiotics if necessary. If she continues to have mucousy or has loose stools, we should also order C. difficile toxin. Karlos Guy MD FD/KALIA /5:26 PM /6:57 PM
[2016-12-11 20:00] VITALS: BP 154/67; PULSE 99; RESP 20; TEMP 96.4; O2SAT 91
[2016-12-11] MEDS ORDERED: HYDROmorphone HCL PF 1 MG/ML VIAL IV PUSH ONE (20:00)
[2016-12-11] MEDS: AMITRIPTYLINE HCL 25 MG TAB PO SCH (21:00)
[2016-12-11] MEDS: FAT EMULSION 20% INJ 250 ML (@10 mls/hr) IV-CENTRAL SCH (22:48)
[2016-12-11] MEDS: FLUCONAZOLE 100 MG PREMIX BAG 50 ML IV SCH (22:48)
[2016-12-11] MEDS: CLINIMIX E 5/25 1000 mL- </= 42 mls/hr IV-CENTRAL SCH ×3 (22:49)
[2016-12-11] MEDS: ENOXAPARIN SODIUM 40 MG/0.4 ML SYRINGE SQ SCH (22:59)
[2016-12-12] VITALS: BP 166/64; PULSE 99; RESP 22; TEMP 96.6; O2SAT 91
[2016-12-12] MEDS: PIPERACIL-TAZO 4.5 GM PREMIX 100 ML IV SCH ×3 (01:14→17:09)
[2016-12-12] MEDS: HYDROmorphone HCL PF 1 MG/ML VIAL IV PUSH PRN ×6 (02:49→20:08)
[2016-12-12] MEDS: LEVOTHYROXINE SODIUM 75 MCG TAB PO SCH (07:20)
[2016-12-12 07:39] LABS: AUTOMATED NEUTROPHIL # 8.5 TH/MM3 (1.8-7.7); BASOPHIL # 0.1 TH/MM3 (0-0.2); BASOPHIL % 0.9 % (0.0-2.0); EOSINOPHIL # 0.4 TH/MM3 (0-0.4); EOSINOPHIL % 3.7 % (0.0-4.0); LYMPH % 14.7 % (9.0-44.0); LYMPHOCYTE # 1.7 TH/MM3 (1.0-4.8); MEAN CELL VOLUME 87.1 FL (80.0-100.0); MEAN CORPUSCULAR HEMOGLOBIN 27.1 PG (27.0-34.0); MEAN CORPUSCULAR HGB CONC 31.2 % (32.0-36.0); MONO % 6.2 % (0.0-8.0); NEUT % 74.5 % (16.0-70.0); PLATELET COUNT 383 TH/MM3 (150-450); RED BLOOD COUNT 3.67 MIL/MM3 (4.00-5.30); RED CELL DISTRIBUTION WIDTH 17.4 % (11.6-17.2); WHITE BLOOD COUNT 11.3 TH/MM3 (4.0-11.0)
[2016-12-12 07:43] LABS: HEMO FLAGS AUTO DIFF
[2016-12-12 08:00] VITALS: BP 143/66; PULSE 93; RESP 17; TEMP 96.8; O2SAT 90
[2016-12-12 08:46] LABS: BANDS 2 % (0-6); EOSINOPHILS 5 % (0-4); METAMYELOCYTES 2 % (0-1); NEUTROPHIL # MANUAL DIFF 9.5 TH/MM3 (1.8-7.7); PLATELET ESTIMATE SMEAR NORMAL (NORMAL); PLATELET MORPHOLOGY NORMAL (NORMAL); POLYS (SEG NEUTROPHILS) 80 % (16-70); SCAN/DIFF FINAL DIFF MANUAL; WBC DIFF SAMPLE 100
[2016-12-12] MEDS: LISINOPRIL 10 MG TAB PO SCH (09:52)
[2016-12-12] MEDS: SODIUM CHLORIDE 0.9% FLUSH 10 ML FLUSH IV FLUSH SCH ×2 (09:53→20:13)
[2016-12-12] MEDS: DEXT 5%-NACL 0.9% 1000 ML INJ 1,000 ML IV SCH ×2 (10:20→20:19)
[2016-12-12 12:00] VITALS: BP 140/63; PULSE 82; RESP 18; TEMP 97.2; O2SAT 90
--- NOTE | 2016-12-12 14:02 | HHI.PR ---
Subjective Remarks Follow-up for abdominal pain Abdominal pain controlled by present dose of Dilaudid but doesn't last that long. No nausea or vomiting. Afebrile. Discussed extensively with patient and patient's daughter. Objective Vitals Vital Signs Date Time Temp Pulse Resp B/P Pulse Ox O2 Delivery O2 Flow Rate FiO2 12/12/16 12:00 97.2 82 18 140/63 90 12/12/16 08:00 96.8 93 17 143/66 90 12/12/16 00:00 96.6 99 22 166/64 91 12/11/16 20:20 18 12/11/16 20:00 96.4 99 20 154/67 91 12/11/16 16:00 96.7 98 17 131/62 92 I/O 12/11/16 12/11/16 12/11/16 12/12/16 12/12/16 12/12/16 07:00 15:00 23:00 07:00 15:00 23:00 Intake Total 1108 ml 818 ml 0 ml 0 ml 1010 ml Output Total 90 ml 330 ml 480 ml 150 ml 205 ml Balance 1018 ml 488 ml -480 ml -150 ml 805 ml Intake Oral 240 ml 0 ml 0 ml 0 ml IV Total 868 ml 818 ml 612 ml TPN/PPN 321 ml Lipid 77 ml Output Drainage Total 90 ml 330 ml 480 ml 150 ml 205 ml # Voids 5 3 2 3 # Bowel Movements 1 4 0 1 Result Diagram: 12/12/16 0720 12/11/16 0516 Objective Remarks Not in distress, well-nourished, looks stated age PERRL, pink conjunctiva without injection, anicteric Nose without bleeding, airway patent, oropharynx clear Supple neck, no masses or thyromegaly, trachea midline Normal rate and regular rhythm, no murmurs gallops or rubs appreciated. Clear to auscultation and symmetric bilaterally, normal respiratory effort. Normal bowel sounds, soft, mildly tender but better, no induration, colostomy bag on PEG tube site draining sanguinous, mildly suppurative discharge. Extremities without clubbing, cyanosis, or edema. No rash of generalized distribution. Skin is warm and dry. AAO x3, no cranial nerve deficits, moves all 4 extremities, no focal neurologic deficits A/P Problem List: (1) Abdominal wall sinus ICD Code: K63.2 Status: Acute (2) Non-small cell lung cancer (NSCLC) ICD Code: C34.90 Status: Acute (3) Pleural effusion on left ICD Code: J90 Status: Acute (4) Radiation-induced esophageal stricture ICD Code: K22.2 Status: Acute Assessment and Plan Ms. Valdovinos is a 76 year old female with a history of NSCLC, radiation esophagitis presents to the ED due to complication of the PEG tube insertion site. PEG Tube was removed recently due to large leakage. Patient was advised to come to the hospital due to copious amount of purulent drainage from the PEG tube insertion site which has become a abdominal wall sinus tract. Infected Abdominal wall sinus - CT scan of the abdomen showed focal thickening of the left rectus muscle with sinus tract extending from the lumen of the stomach into the rectus, moderate- sized left pleural effusion, no ascites. - Still purulent, increasing leukocytosis, general surgery and infectious disease to evaluate patient. Continue IVF change to D5NS, continue vancomycin, Zosyn, fluconazole. Infectious disease following. Follow-up wound culture. Continue pain control with intravenous Dilaudid, increased frequency. Nothing by mouth for now, continue TPN, once infection is controlled, for possible jejunostomy versus postpyloric Dobbhoff versus esophageal stenting. GI also following Radiation induced esophageal stricture - Esophageal dilatation done recently. GI following. Nothing by mouth. History of Non-small cell lung cancer - s/p chemo, radiation therapy. Left sided pleural effusion - Etiology is not clear. Can be observed. - Currently patient is not requiring any supplemental O2. If persistent, diagnostic thoracentesis can be considered to rule out lung cancer progression. Patient is mildly hypoxic but refusing oxygen Hypokalemia - likely due to GI loss. Magnesium is 2.1, replace as needed. Hypertension-continue lisinopril Lovenox for DVT prophylaxis Discharge Planning Likely discharge back home. Kayla Martinez MD Dec 12, 2016 14:02
[2016-12-12 16:00] VITALS: BP 147/65; PULSE 84; RESP 17; TEMP 96.3; O2SAT 93
--- NOTE | 2016-12-12 16:28 | HHI.GIFU ---
Subjective Remarks Continues to have abdominal pain, controlled for a short period of time with Dilaudid. Denies nausea or vomiting. Colostomy bag on PEG tube site with sanguineous discharge. (Isabel Thompson) Objective Vitals I&O Vital Signs Date Time Temp Pulse Resp B/P Pulse Ox O2 Delivery O2 Flow Rate FiO2 12/12/16 12:00 97.2 82 18 140/63 90 12/12/16 08:00 96.8 93 17 143/66 90 12/12/16 00:00 96.6 99 22 166/64 91 12/11/16 20:20 18 12/11/16 20:00 96.4 99 20 154/67 91 I/O 12/11/16 12/11/16 12/11/16 12/12/16 12/12/16 12/12/16 07:00 15:00 23:00 07:00 15:00 23:00 Intake Total 1108 ml 818 ml 0 ml 0 ml 1010 ml Output Total 90 ml 330 ml 480 ml 150 ml 205 ml Balance 1018 ml 488 ml -480 ml -150 ml 805 ml Intake Oral 240 ml 0 ml 0 ml 0 ml 0 ml IV Total 868 ml 818 ml 612 ml TPN/PPN 321 ml Lipid 77 ml Output Drainage Total 90 ml 330 ml 480 ml 150 ml 205 ml # Voids 5 3 2 3 2 # Bowel Movements 1 4 0 1 1 Laboratory Laboratory Tests Test 12/12/16 07:20 White Blood Count 11.3 Red Blood Count 3.67 Hemoglobin 10.0 Hematocrit 32.0 Mean Corpuscular Volume 87.1 Mean Corpuscular Hemoglobin 27.1 Mean Corpuscular Hemoglobin 31.2 Concent Red Cell Distribution Width 17.4 Platelet Count 383 Mean Platelet Volume 7.9 Neutrophils (%) (Auto) 74.5 Lymphocytes (%) (Auto) 14.7 Monocytes (%) (Auto) 6.2 Eosinophils (%) (Auto) 3.7 Basophils (%) (Auto) 0.9 Neutrophils # (Auto) 8.5 Lymphocytes # (Auto) 1.7 Monocytes # (Auto) 0.7 Eosinophils # (Auto) 0.4 Basophils # (Auto) 0.1 CBC Comment AUTO DIFF Differential Total Cells 100 Counted Neutrophils % (Manual) 80 Band Neutrophils % 2 Lymphocytes % 8 Monocytes % 3 Eosinophils % 5 Neutrophils # (Manual) 9.5 Metamyelocytes 2 Differential Comment FINAL DIFF MANUAL Platelet Estimate NORMAL Platelet Morphology Comment NORMAL Date/Time Procedure Status Source Growth 12/11/16 17:57 Gram Stain - Final Resulted Fluid Other 12/11/16 17:57 Body Fluid Culture - Preliminary Resulted Fluid Other NO GROWTH IN 24 HOURS. Imaging Last Impressions Abdomen/Pelvis CT 12/10/16 0000 Signed Impressions: Service Date/Time: Saturday, December 10, 2016 20:17 - CONCLUSION: 1. Focal thickening of the left rectus muscle with sinus tract extending from the lumen of the stomach into the rectus, presumably at site of prior percutaneous gastrostomy. 2. Moderate-sized left pleural effusion. No evidence of ascites. 3. 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 4. Sigmoid diverticulosis without radiographic evidence of diverticulitis. Armando Harrington MD Physical Exam HEENT: Normocephalic; atraumatic; no jaundice. NECK: Neck is supple, no JVD, no lymphadenopathy. CHEST: CTA CARDIAC: RRR with no murmur gallop or rubs. ABDOMEN: Soft, nondistended, mild tenderness at PEG tube insertion site, no hepatosplenomegaly; bowel sounds are present x 4. Collecting bag to the site of PEG tube insertion with sanguineous discharge EXTREMITIES: No clubbing, cyanosis, or edema. SKIN: Normal; no rash; no jaundice. CLINICAL RESEARCH ASSISTANT: No focal deficits; alert and oriented x 3 (Isabel Thompson) Assessment and Plan Plan ASSESSMENT: - Cellulitis, PEG tube site infection. Abdomen/Pelvis CT 12/10/16 1. Focal thickening of the left rectus muscle with sinus tract extending from the lumen of the stomach into the rectus, presumably at site of prior percutaneous gastrostomy. 2. Moderate-sized left pleural effusion. No evidence of ascites. 3. 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 4. Sigmoid diverticulosis without radiographic evidence of diverticulitis. Pt came to office on 12/08 for peg tube site pain and drainage. The tube was noted to be dislodged and was completely removed. The incision was packed and she was given Augmentin suspension. She reports that since the tube was removed, it has been draining copious amounts of purulent She was seen in office today (12/10/16) with significant leakage from the peg tube site, with moderate erythema noted surrounding the site. She was sent to the hospital for IV antibiotics, TPN, and possible I&D. She denies fevers/chills. PEG tube site with collecting drainage bag with moderate amount sanguineous discharge WBC 11.3. C/S lactobacillus sp. Zosyn, Vanco. NPO. TPN. GS evaluation. ID evaluation. - Leukocytosis secondary to above. Improving. WBC 11.3 - Dysphagia, Esophageal strictures secondary to radiation esophagitis. S/P multiple dilatations. She reports that there was some talk of a stent at one point, but that this was not able to be done secondary to the stricture being so tight. EGD with PEG tube placement (11/29/16)----> mid esophageal stricture with inflammation consistent with recurring radiation esophagitis, s/p dilation with 12, 14, normal stomach, normal duodenum, s/p peg tube placement. She was evaluated by the instrument man at that time and they had recommended Jevity 1.5 bolus feedings 240 mls at 8am, 11am, 2pm , 5pm, 8pm with 60ml flushes before feeding and 120cc flushes after feeding. 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 S/P chemotherapy and radiotherapy, completed on 09/01/16. PET scan scheduled as outpatient. - GERD. PPI - Hypokalemia, HTN, Hypothyroidism, COPD, Hyperlipidemia, Macular degeneration per attending. PLAN: - NPO - TPN - PPI - Zosyn - Vanco - Cont. Diflucan - GS evaluation for I&D pending - ID following - Monitor labs - Supportive care - Further recommendations to follow based on results of above Patient seen and examined by Dr. Carty and myself and this note is written on her behalf (Isabel Thompson) Physician Comments seen,examined agree with above consider egd/dil/stent once fistulae resolved (Irena Carty MD) Isabel Thompson Dec 12, 2016 16:28 Irena Carty MD Dec 12, 2016 20:28
[2016-12-12] MEDS: VANCOMYCIN INJ 750 MG in SODIUM CHLOR 0.9% 250 ML INJ 250 ML IV SCH (17:13)
[2016-12-12] MEDS: CLINIMIX E 5/25 1000 mL- </= 42 mls/hr IV-CENTRAL SCH ×3 (18:47)
[2016-12-12 19:59] VITALS: O2SAT 95
[2016-12-12 20:00] VITALS: BP 142/62; PULSE 97; RESP 18; TEMP 97.1; O2SAT 94
[2016-12-12] MEDS: FLUCONAZOLE 100 MG PREMIX BAG 50 ML IV SCH (20:13)
[2016-12-12] MEDS: FAT EMULSION 20% INJ 250 ML (@10 mls/hr) IV-CENTRAL SCH (20:13)
[2016-12-12] MEDS: AMITRIPTYLINE HCL 25 MG TAB PO SCH (20:14)
[2016-12-12] MEDS: ENOXAPARIN SODIUM 40 MG/0.4 ML SYRINGE SQ SCH (20:18)
[2016-12-13] VITALS: BP 174/82; PULSE 104; RESP 20; TEMP 96.2; O2SAT 93
[2016-12-13] MEDS: PIPERACIL-TAZO 4.5 GM PREMIX 100 ML IV SCH ×2 (00:08→08:58)
[2016-12-13] MEDS: HYDROmorphone HCL PF 1 MG/ML VIAL IV PUSH PRN ×7 (00:08→21:42)
[2016-12-13] MEDS: LEVOTHYROXINE SODIUM 75 MCG TAB PO SCH (06:07)
[2016-12-13 08:00] VITALS: BP 155/69; PULSE 94; RESP 19; TEMP 96.9; O2SAT 94
[2016-12-13] MEDS: SODIUM CHLORIDE 0.9% FLUSH 10 ML FLUSH IV FLUSH SCH ×2 (08:58→20:43)
[2016-12-13] MEDS: LISINOPRIL 10 MG TAB PO SCH (08:58)
[2016-12-13] MEDS: DEXT 5%-NACL 0.9% 1000 ML INJ 1,000 ML IV SCH ×2 (10:10→20:42)
[2016-12-13 11:47] VITALS: BP 139/63; PULSE 81; RESP 19; TEMP 96.9; O2SAT 96
--- NOTE | 2016-12-13 12:29 | PD.WCN.NOT ---
Wound Consult Description: Consult for abdomen previous peg tube site per Dr Carty and JAYME Patel Communicated with: NARCISO Lyons Patient Patient family member Recommendation: Follow up with surgery. Continue to empty drainage pouch when 1/3 full and change as needed. Additional Information: Patient seen on for previous peg tube/removal site with drainage. ~ 110ml of dark green/brown liquid drainage noted in wound drainage bag on patient left side abdomen. Drainage pouch intact, with no leaks noted, and emptied during assessment. Patient family member states that they are awaiting results from cultures taken over the weekend for possible surgery. Patient is sitting on side of bed, slightly uncomfortable and holding left side of abdomen. Patient states she feels better after the bag is emptied. Mariama Ramon [facility] Dec 13, 2016 12:29
--- NOTE | 2016-12-13 14:00 | HHI.PR ---
Subjective Remarks Follow up for PEG tube complication with patent fistula tract through abdominal wall, NSCLC, radiation esophagitis. Patient is currently resting well. She complains of pain when her ostomy bag gets full and pulls on the skin. Currently tolerating TPN. No fever, chills. Objective Vitals Vital Signs Date Time Temp Pulse Resp B/P Pulse Ox O2 Delivery O2 Flow Rate FiO2 12/13/16 11:47 96.9 81 19 139/63 96 12/13/16 08:00 96.9 94 19 155/69 94 12/13/16 00:00 96.2 104 20 174/82 93 12/12/16 20:38 18 12/12/16 20:00 97.1 97 18 142/62 94 12/12/16 19:59 95 21 12/12/16 16:00 96.3 84 17 147/65 93 I/O 12/12/16 12/12/16 12/12/16 12/13/16 12/13/16 12/13/16 07:00 15:00 23:00 07:00 15:00 23:00 Intake Total 0 ml 1010 ml 0 ml 2114 ml 0 ml Output Total 150 ml 205 ml 125 ml 400 ml Balance -150 ml 805 ml -125 ml 2114 ml -400 ml Intake Oral 0 ml 0 ml 0 ml 0 ml 0 ml IV Total 612 ml 1378 ml TPN/PPN 321 ml 638 ml Lipid 77 ml 98 ml Output Urine Total 400 ml Drainage Total 150 ml 205 ml 125 ml # Voids 3 2 1 2 # Bowel Movements 1 1 0 0 0 Result Diagram: 12/12/16 0720 12/13/16 0605 Imaging Last Impressions Abdomen/Pelvis CT 12/10/16 0000 Signed Impressions: Service Date/Time: Saturday, December 10, 2016 20:17 - CONCLUSION: 1. Focal thickening of the left rectus muscle with sinus tract extending from the lumen of the stomach into the rectus, presumably at site of prior percutaneous gastrostomy. 2. Moderate-sized left pleural effusion. No evidence of ascites. 3. 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 4. Sigmoid diverticulosis without radiographic evidence of diverticulitis. Armando Harrington MD Objective Remarks GENERAL: AOx3, NAD. SKIN: Warm and dry. HEAD: Normocephalic. EYES: No scleral icterus. No injection or drainage. NECK: Supple, trachea midline. No JVD or lymphadenopathy. CARDIOVASCULAR: Regular rate and rhythm without murmurs, gallops, or rubs. RESPIRATORY: Breath sounds equal bilaterally. No accessory muscle use. GASTROINTESTINAL: Abdomen soft, non-tender, nondistended. Ostomy bag in place. MUSCULOSKELETAL: No cyanosis, or edema. BACK: Nontender without obvious deformity. No CVA tenderness. A/P Problem List: (1) Abdominal wall sinus ICD Code: K63.2 Status: Acute (2) Non-small cell lung cancer (NSCLC) ICD Code: C34.90 Status: Acute (3) Pleural effusion on left ICD Code: J90 Status: Acute (4) Radiation-induced esophageal stricture ICD Code: K22.2 Status: Acute Assessment and Plan Ms. Valdovinos is a 76 year old female with a history of NSCLC, radiation esophagitis presents to the ED due to complication of the PEG tube insertion site. PEG Tube was removed recently due to large leakage. 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 Currently have ostomy bag. - Due to purulent drainage, WBC 13.6, we started patient on broad spectrum Abx - Vancomycin and Zosyn IV. - GI has added IV fluconazole as well. ID was consulted. All abx discontinued on 12/13/2016 per ID. - Patient is afebrile, WBC improved. - General surgery, GI following. Continue TPN. - Radiation induced esophageal stricture - Esophageal dilatation done recently. - Patient will likely need EGD with dilatation and/or stent placement. - History of Non-small cell lung cancer - s/p chemo, radiation therapy. - Left sided pleural effusion - Etiology is not clear. Can be observed. - Currently patient is not requiring any supplemental O2. - If persistent, diagnostic thoracentesis can be considered to rule out lung cancer progression. - Hypokalemia - likely due to GI loss. - Magnesium is 2.1 - K+ is 3.0, improved to 3.4, 3.5. - Hypothyroidism - continue Levothyroxine 75mcg Qday. - Hypertension - continue Lisinopril 10mg Qday. Full code. Lovenox. Discharge plan: ID discontinued all abx. Patient could potentially go home with home health and continue TPN. Gamaliel Cruz DO Dec 13, 2016 14:00
[2016-12-13 16:00] VITALS: BP 124/75; PULSE 108; RESP 20; TEMP 96.9; O2SAT 95
[2016-12-13] MEDS ORDERED: PHARMACY ORDERED LAB ONE (16:45)
--- NOTE | 2016-12-13 16:48 | HHI.IDPN ---
Note Infectious Disease Note Patient feels okay. Less pain at the abdomen. Still with copious drainage of dark fluid from the PE site int collection bag. Afebrile. Drainage culture has lactobacillus. Admitted after PEG dislodged noted to have surrounding erythema. PAST MEDICAL HISTORY: 1. Nonsmall cell carcinoma of the lung treated with chemotherapy. 2. Esophageal strictures. 3. Radiation esophagitis. 4. Hypothyroidism. 5. Hypertension. 6. Gastroesophageal reflux disease (GERD). 7. Hyperlipidemia. 8. COPD. 9. Macular degeneration. 10. Hysterectomy. 11. Tonsillectomy. 12. Tubal ligation. ALLERGIES: OXACILLIN. ANTIBIOTICS: 1. Vancomycin. 2. Fluconazole. 3. Piperacillin / tazobactam. OBJ: Vital Signs Date Time Temp Pulse Resp B/P Pulse Ox O2 Delivery O2 Flow Rate FiO2 12/13/16 16:00 96.9 108 20 124/75 95 12/13/16 11:47 96.9 81 19 139/63 96 12/13/16 08:00 96.9 94 19 155/69 94 12/13/16 00:00 96.2 104 20 174/82 93 12/12/16 20:38 18 12/12/16 20:00 97.1 97 18 142/62 94 12/12/16 19:59 95 21 Laboratory Tests Test 12/12/16 07:20 White Blood Count 11.3 TH/MM3 Red Blood Count 3.67 MIL/MM3 Hemoglobin 10.0 GM/DL Hematocrit 32.0 % Mean Corpuscular Volume 87.1 FL Mean Corpuscular Hemoglobin 27.1 PG Mean Corpuscular Hemoglobin 31.2 % Concent Red Cell Distribution Width 17.4 % Platelet Count 383 TH/MM3 Mean Platelet Volume 7.9 FL Neutrophils (%) (Auto) 74.5 % Lymphocytes (%) (Auto) 14.7 % Monocytes (%) (Auto) 6.2 % Eosinophils (%) (Auto) 3.7 % Basophils (%) (Auto) 0.9 % Neutrophils # (Auto) 8.5 TH/MM3 Lymphocytes # (Auto) 1.7 TH/MM3 Monocytes # (Auto) 0.7 TH/MM3 Eosinophils # (Auto) 0.4 TH/MM3 Basophils # (Auto) 0.1 TH/MM3 CBC Comment AUTO DIFF Differential Total Cells 100 Counted Neutrophils % (Manual) 80 % Band Neutrophils % 2 % Lymphocytes % 8 % Monocytes % 3 % Eosinophils % 5 % Neutrophils # (Manual) 9.5 TH/MM3 Metamyelocytes 2 % Differential Comment FINAL DIFF MANUAL Platelet Estimate NORMAL Platelet Morphology Comment NORMAL Laboratory Tests Test 12/13/16 06:05 Creatinine 0.45 MG/DL Estimat Glomerular Filtration 135 ML/MIN Rate Microbiology Date/Time Procedure Status Source Growth 12/11/16 17:57 Gram Stain - Final Resulted Fluid Other 12/11/16 17:57 Body Fluid Culture - Preliminary Resulted Fluid Other NO GROWTH IN 48 HOURS. PHYSICAL EXAMINATION: GENERAL: No acute distress. HEAD, EYES, EARS, NOSE, THROAT: No icterus. Oropharynx with moist mucosa. No visible lesions. NECK: The neck is supple without adenopathy. LUNGS: Clear breath sounds bilaterally. HEART: Regular S1 and S2 without murmurs. No rubs or gallops. CHEST: Chest infusion port is present at the right upper chest wall and appears intact. ABDOMEN: Bowel sounds present, mildly distended. Very little tenderness. No erythema. EXTREMITIES: No clubbing or cyanosis or edema. SKIN: No rash. NEUROLOGIC: Nonfocal. PSYCHIATRIC: calm and cooperative. IMPRESSION: 1. 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 2. PEG site cellulitis at the abdominal wall. Does not look significant. 3. Leukocytosis. WBC lower. RECOMMENDATIONS: 1. Stop Vancomycin. 2. Stop piperacillin / tazobactam. 3. Stop fluconazole. 4. Observe without further antibiotics. Karlos Guy MD Dec 13, 2016 16:48
--- NOTE | 2016-12-13 17:39 | HHI.GIFU ---
Subjective Remarks Resting in bed. Still having significant drainage from fistula to drainage bag - appears to be some old blood mixed with this. Abdominal pain improved. Objective Vitals I&O Vital Signs Date Time Temp Pulse Resp B/P Pulse Ox O2 Delivery O2 Flow Rate FiO2 12/13/16 16:00 96.9 108 20 124/75 95 12/13/16 11:47 96.9 81 19 139/63 96 12/13/16 08:00 96.9 94 19 155/69 94 12/13/16 00:00 96.2 104 20 174/82 93 12/12/16 20:38 18 12/12/16 20:00 97.1 97 18 142/62 94 12/12/16 19:59 95 21 I/O 12/12/16 12/12/16 12/12/16 12/13/16 12/13/16 12/13/16 07:00 15:00 23:00 07:00 15:00 23:00 Intake Total 0 ml 1010 ml 0 ml 2114 ml 980 ml Output Total 150 ml 205 ml 125 ml 710 ml Balance -150 ml 805 ml -125 ml 2114 ml 270 ml Intake Oral 0 ml 0 ml 0 ml 0 ml 0 ml IV Total 612 ml 1378 ml 473 ml TPN/PPN 321 ml 638 ml 423 ml Lipid 77 ml 98 ml 84 ml Output Urine Total 400 ml Drainage Total 150 ml 205 ml 125 ml 310 ml # Voids 3 2 1 2 # Bowel Movements 1 1 0 0 0 Laboratory Laboratory Tests Test 12/13/16 06:05 Creatinine 0.45 Estimat Glomerular Filtration 135 Rate Date/Time Procedure Status Source Growth 12/11/16 17:57 Gram Stain - Final Resulted Fluid Other 12/11/16 17:57 Body Fluid Culture - Preliminary Resulted Fluid Other NO GROWTH IN 48 HOURS. Imaging Last Impressions Abdomen/Pelvis CT 12/10/16 0000 Signed Impressions: Service Date/Time: Saturday, December 10, 2016 20:17 - CONCLUSION: 1. Focal thickening of the left rectus muscle with sinus tract extending from the lumen of the stomach into the rectus, presumably at site of prior percutaneous gastrostomy. 2. Moderate-sized left pleural effusion. No evidence of ascites. 3. 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 4. Sigmoid diverticulosis without radiographic evidence of diverticulitis. Armando Harrington MD Physical Exam HEENT: Normocephalic; atraumatic CHEST: CTA CARDIAC: RRR with no murmur gallop or rubs. ABDOMEN: Soft, nondistended, mild tenderness at PEG tube insertion site, no hepatosplenomegaly; bowel sounds are present x 4. Collecting bag to the site of PEG tube insertion with dark, almost black drainage. EXTREMITIES: No clubbing, cyanosis, or edema. SKIN: Normal; no rash; no jaundice. CUSTOM MOTORCYCLE PAINTER: No focal deficits; alert and oriented x 3 Assessment and Plan Plan ASSESSMENT: - Cellulitis, PEG tube site infection with fistula tract. Pt came to office on 12/08 for peg tube site pain and drainage. The tube was noted to be dislodged and was completely removed. The incision was packed and she was given Augmentin suspension. She reports that since the tube was removed, it has been draining copious amounts of purulent She was seen in office today (12/10/16) with significant leakage from the peg tube site, with moderate erythema noted surrounding the site. She was sent to the hospital for IV antibiotics, TPN, and possible I&D. She denies fevers/chills. Abdomen/Pelvis CT (12/10/16)----> 1. Focal thickening of the left rectus muscle with sinus tract extending from the lumen of the stomach into the rectus, presumably at site of prior percutaneous gastrostomy. 2. Moderate-sized left pleural effusion. No evidence of ascites. 3. 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 4. Sigmoid diverticulosis without radiographic evidence of diverticulitis. Fistula site with drainage bag with large amount of dark drainage- what appears to be old blood ? Coffee ground. GS following, NPO. TPN. ID following. Wound culture with lactobacillus species. Fluid with no growth x 48 hours. Site itself much improved- not red or indurated. - Leukocytosis secondary to above. Improving. 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 S/P multiple dilatations. She reports that there was some talk of a stent at one point, but that this was not able to be done secondary to the stricture being so tight. EGD with PEG tube placement (11/29/16)----> mid esophageal stricture with inflammation consistent with recurring radiation esophagitis, s/p dilation with 12, 14, normal stomach, normal duodenum, s/p peg tube placement. She was evaluated by the hotel manager at that time and they had recommended Jevity 1.5 bolus feedings 240 mls at 8am, 11am, 2pm , 5pm, 8pm with 60ml flushes before feeding and 120cc flushes after feeding. Plan will be for EGD with dilatation, possible stent placement once tract heals. 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 S/P chemotherapy and radiotherapy, completed on 09/01/16. PET scan scheduled as outpatient. - GERD. PPI - Hypokalemia, HTN, Hypothyroidism, COPD, Hyperlipidemia, Macular degeneration per attending. PLAN: - NPO - TPN - PPI - GS following - ID following - Monitor labs - Supportive care - Further recommendations to follow based on results of above - EGD with dilatation and possible stent placement once fistula heals Patient seen and examined by Dr. Carty and myself and this note is written on her behalf Venecia Patel Dec 13, 2016 17:39
--- NOTE | 2016-12-13 18:17 | HHI.PR ---
Subjective Subjective Notes Resting in bed No issues Daughter at bedside Objective Vitals/I&O Vital Signs Date Time Temp Pulse Resp B/P Pulse Ox O2 Delivery O2 Flow Rate FiO2 12/13/16 16:00 96.9 108 20 124/75 95 12/12/16 19:59 21 12/10/16 18:00 Room Air Labs Laboratory Tests Test 12/13/16 06:05 Creatinine 0.45 Estimat Glomerular Filtration 135 Rate Date/Time Procedure Status Source Growth 12/11/16 17:57 Gram Stain - Final Resulted Fluid Other 12/11/16 17:57 Body Fluid Culture - Preliminary Resulted Fluid Other NO GROWTH IN 48 HOURS. Cardiovascular: Regular Lungs: Clear Abdomen: Other (prior PEG tube site to ostomy drainage bag; drainage dark; thin liquid ) Extremities: No edema A/P Assessment and Plan 76 year old female with PMhx significant for non-small cell carcinoma of the lung status post chemotherapy and radiation; esophageal strictures; PEG tube malfunction--- currently with patent fistula tract -Continue ostomy wound back to fistula for drainage collection -IV antibiotics -TPN -Out of bed as tolerated -Pain control Attending Statement patient seen and examined at bedside wound with ostomy bag drainage controlled pt feeling better Attestation The exam, history, and the medical decision-making described in the above note were completed with the assistance of the mid-level provider. I reviewed and agree with the findings presented. I attest that I had a [id number] encounter with the patient on the same day, and personally performed and documented my assessment and findings in the medical record. Patti Rey Dec 13, 2016 18:17 Jese Nice MD Dec 16, 2016 21:19
[2016-12-13 20:00] VITALS: BP 125/60; PULSE 89; RESP 18; TEMP 97.9; O2SAT 90
[2016-12-13] MEDS: MULTIVITAMIN INJ 10 ML, FOLIC ACID INJ 1 MG in AMINO ACID IN D5W W/ELECTROLYT 2,000 ML IV SCH ×3 (20:41)
[2016-12-13] MEDS: FAT EMULSION 20% INJ 250 ML (@10 mls/hr) IV-CENTRAL SCH (20:42)
[2016-12-13] MEDS: AMITRIPTYLINE HCL 25 MG TAB PO SCH (20:42)
[2016-12-13] MEDS: ENOXAPARIN SODIUM 40 MG/0.4 ML SYRINGE SQ SCH (20:43)
[2016-12-14] VITALS: BP 119/60; PULSE 81; RESP 18; TEMP 97.2; O2SAT 90
[2016-12-14] MEDS: HYDROmorphone HCL PF 1 MG/ML VIAL IV PUSH PRN ×7 (00:55→20:00)
[2016-12-14] MEDS: LEVOTHYROXINE SODIUM 75 MCG TAB PO SCH (03:59)
[2016-12-14 08:00] VITALS: BP 128/63; PULSE 88; RESP 17; TEMP 96.9; O2SAT 92
[2016-12-14] MEDS: SODIUM CHLORIDE 0.9% FLUSH 10 ML FLUSH IV FLUSH SCH ×2 (08:41→20:01)
[2016-12-14] MEDS: DEXT 5%-NACL 0.9% 1000 ML INJ 1,000 ML IV SCH ×2 (08:42→16:56)
[2016-12-14] MEDS: LISINOPRIL 10 MG TAB PO SCH ×2 (08:42→10:41)
[2016-12-14 12:00] VITALS: BP 142/84; PULSE 93; RESP 20; TEMP 97.3; O2SAT 93
--- NOTE | 2016-12-14 13:41 | HHI.PR ---
Subjective Subjective Notes Resting in bed No issues overnight Objective Vitals/I&O Vital Signs Date Time Temp Pulse Resp B/P Pulse Ox O2 Delivery O2 Flow Rate FiO2 12/14/16 12:00 97.3 93 20 142/84 93 12/12/16 19:59 21 12/10/16 18:00 Room Air Labs Date/Time Procedure Status Source Growth 12/11/16 17:57 Gram Stain - Final Complete Fluid Other 12/11/16 17:57 Body Fluid Culture - Final Complete Fluid Other NO GROWTH IN 72 HRS.--AEROBICALLY OR ... Cardiovascular: Regular Lungs: Clear Abdomen: Other (minimal tenderness; prior PEG site with ostomy wound bag with brown drainage ) Extremities: No edema A/P Assessment and Plan 76 year old female with PMhx significant for non-small cell carcinoma of the lung status post chemotherapy and radiation; esophageal strictures; PEG tube malfunction--- currently with patent fistula tract -Continue ostomy wound back to fistula for drainage collection -IV antibiotics -Continue TPN -Out of bed as tolerated -Pain control Attending Statement peg malfxn patient seen and examined at bedside ostomy bag with good fistula control Attestation The exam, history, and the medical decision-making described in the above note were completed with the assistance of the mid-level provider. I reviewed and agree with the findings presented. I attest that I had a [id number] encounter with the patient on the same day, and personally performed and documented my assessment and findings in the medical record. Patti Rey Dec 14, 2016 13:41 Jese Nice MD Dec 16, 2016 21:25
--- NOTE | 2016-12-14 14:26 | HHI.GIFU ---
Subjective Remarks Resting in bed. Still with abdominal pain, controlled with pain meds. Still with large amount of drainage from peg tube site. No BM. Objective Vitals I&O Vital Signs Date Time Temp Pulse Resp B/P Pulse Ox O2 Delivery O2 Flow Rate FiO2 12/14/16 12:00 97.3 93 20 142/84 93 12/14/16 08:00 96.9 88 17 128/63 92 12/14/16 01:40 30 12/14/16 00:00 97.2 81 18 119/60 90 12/13/16 20:00 97.9 89 18 125/60 90 12/13/16 16:00 96.9 108 20 124/75 95 I/O 12/13/16 12/13/16 12/13/16 12/14/16 12/14/16 12/14/16 06:59 14:59 22:59 06:59 14:59 22:59 Intake Total 2114 ml 980 ml 240 ml 1749 ml 1294 ml Output Total 710 ml 470 ml 700 ml 915 ml Balance 2114 ml 270 ml -230 ml 1049 ml 379 ml Intake Oral 0 ml 0 ml 240 ml 0 ml IV Total 1378 ml 473 ml 986 ml 743 ml TPN/PPN 638 ml 423 ml 629 ml 455 ml Lipid 98 ml 84 ml 134 ml 96 ml Output Urine Total 400 ml 600 ml 675 ml Drainage Total 310 ml 470 ml 100 ml 240 ml # Voids 2 2 # Bowel Movements 0 0 0 Laboratory Date/Time Procedure Status Source Growth 12/11/16 17:57 Gram Stain - Final Complete Fluid Other 12/11/16 17:57 Body Fluid Culture - Final Complete Fluid Other NO GROWTH IN 72 HRS.--AEROBICALLY OR ... Imaging Last Impressions Abdomen/Pelvis CT 12/10/16 0000 Signed Impressions: Service Date/Time: Saturday, December 10, 2016 20:17 - CONCLUSION: 1. Focal thickening of the left rectus muscle with sinus tract extending from the lumen of the stomach into the rectus, presumably at site of prior percutaneous gastrostomy. 2. Moderate-sized left pleural effusion. No evidence of ascites. 3. 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 4. Sigmoid diverticulosis without radiographic evidence of diverticulitis. Armando Harrington MD Physical Exam HEENT: Normocephalic; atraumatic CHEST: CTA CARDIAC: RRR with no murmur gallop or rubs. ABDOMEN: Soft, nondistended, mild tenderness at PEG tube insertion site, no hepatosplenomegaly; bowel sounds are present x 4. Collecting bag to the site of PEG tube insertion with dark drainage. EXTREMITIES: No clubbing, cyanosis, or edema. SKIN: Normal; no rash; no jaundice. TECHNICAL OPERATIONS SPECIALIST: No focal deficits; alert and oriented x 3 Assessment and Plan Plan ASSESSMENT: - Cellulitis, PEG tube site infection with fistula tract. Pt came to office on 12/08 for peg tube site pain and drainage. The tube was noted to be dislodged and was completely removed. The incision was packed and she was given Augmentin suspension. She reports that since the tube was removed, it has been draining copious amounts of purulent She was seen in office today (12/10/16) with significant leakage from the peg tube site, with moderate erythema noted surrounding the site. She was sent to the hospital for IV antibiotics, TPN, and possible I&D. She denies fevers/chills. Abdomen/Pelvis CT (12/10/16)----> 1. Focal thickening of the left rectus muscle with sinus tract extending from the lumen of the stomach into the rectus, presumably at site of prior percutaneous gastrostomy. 2. Moderate-sized left pleural effusion. No evidence of ascites. 3. 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 4. Sigmoid diverticulosis without radiographic evidence of diverticulitis. Fistula site with drainage bag with large amount of dark drainage. NPO. TPN. Wound culture with lactobacillus species. Fluid with no growth x 48 hours. Site itself much improved- not red or indurated. - Leukocytosis secondary to above. Improving. 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 S/P multiple dilatations. She reports that there was some talk of a stent at one point, but that this was not able to be done secondary to the stricture being so tight. EGD with PEG tube placement (11/29/16)----> mid esophageal stricture with inflammation consistent with recurring radiation esophagitis, s/p dilation with 12, 14, normal stomach, normal duodenum, s/p peg tube placement. She was evaluated by the porter bath at that time and they had recommended Jevity 1.5 bolus feedings 240 mls at 8am, 11am, 2pm , 5pm, 8pm with 60ml flushes before feeding and 120cc flushes after feeding. Plan will be for EGD with dilatation, possible stent placement once tract heals. 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 S/P chemotherapy and radiotherapy, completed on 09/01/16. PET scan scheduled as outpatient. - GERD. PPI - Hypokalemia, HTN, Hypothyroidism, COPD, Hyperlipidemia, Macular degeneration per attending. PLAN: - NPO - TPN - PPI - GS following - ID following - Monitor labs - Supportive care - Further recommendations to follow based on results of above - EGD with dilatation and possible stent placement once fistula heals - Pt seen and examined by Dr. Galaviz and myself and this note is written on his behalf Venecia Patel Dec 14, 2016 14:26
--- NOTE | 2016-12-14 14:52 | HHI.PR ---
Subjective Remarks Follow up for PEG tube complication with patent fistula tract through abdominal wall, NSCLC, radiation esophagitis. Patient is doing well. No fever, chills. However, she is somewhat overwhelmed about the prospect of going home with TPN. Her daughter will help. Patient will also receive home health. Objective Vitals Vital Signs Date Time Temp Pulse Resp B/P Pulse Ox O2 Delivery O2 Flow Rate FiO2 12/14/16 12:00 97.3 93 20 142/84 93 12/14/16 08:00 96.9 88 17 128/63 92 12/14/16 01:40 30 12/14/16 00:00 97.2 81 18 119/60 90 12/13/16 20:00 97.9 89 18 125/60 90 12/13/16 16:00 96.9 108 20 124/75 95 I/O 12/13/16 12/13/16 12/13/16 12/14/16 12/14/16 12/14/16 07:00 15:00 23:00 07:00 15:00 23:00 Intake Total 2114 ml 980 ml 240 ml 1749 ml 1294 ml Output Total 710 ml 470 ml 700 ml 915 ml Balance 2114 ml 270 ml -230 ml 1049 ml 379 ml Intake Oral 0 ml 0 ml 240 ml 0 ml IV Total 1378 ml 473 ml 986 ml 743 ml TPN/PPN 638 ml 423 ml 629 ml 455 ml Lipid 98 ml 84 ml 134 ml 96 ml Output Urine Total 400 ml 600 ml 675 ml Drainage Total 310 ml 470 ml 100 ml 240 ml # Voids 2 2 # Bowel Movements 0 0 0 Result Diagram: 12/12/16 0720 12/13/16 0605 Imaging Last Impressions Abdomen/Pelvis CT 12/10/16 0000 Signed Impressions: Service Date/Time: Saturday, December 10, 2016 20:17 - CONCLUSION: 1. Focal thickening of the left rectus muscle with sinus tract extending from the lumen of the stomach into the rectus, presumably at site of prior percutaneous gastrostomy. 2. Moderate-sized left pleural effusion. No evidence of ascites. 3. 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 4. Sigmoid diverticulosis without radiographic evidence of diverticulitis. Armando Harrington MD Objective Remarks GENERAL: AOx3, NAD. SKIN: Warm and dry. HEAD: Normocephalic. EYES: No scleral icterus. No injection or drainage. NECK: Supple, trachea midline. No JVD or lymphadenopathy. CARDIOVASCULAR: Regular rate and rhythm without murmurs, gallops, or rubs. RESPIRATORY: Breath sounds equal bilaterally. No accessory muscle use. GASTROINTESTINAL: Abdomen soft, non-tender, nondistended. Ostomy bag in place. MUSCULOSKELETAL: No cyanosis, or edema. BACK: Nontender without obvious deformity. No CVA tenderness. A/P Problem List: (1) Abdominal wall sinus ICD Code: K63.2 Status: Acute (2) Non-small cell lung cancer (NSCLC) ICD Code: C34.90 Status: Acute (3) Pleural effusion on left ICD Code: J90 Status: Acute (4) Radiation-induced esophageal stricture ICD Code: K22.2 Status: Acute Assessment and Plan Ms. Valdovinos is a 76 year old female with a history of NSCLC, radiation esophagitis presents to the ED due to complication of the PEG tube insertion site. PEG Tube was removed recently due to large leakage. 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 Currently have ostomy bag. - Due to purulent drainage, WBC 13.6, we started patient on broad spectrum Abx - Vancomycin and Zosyn IV. - GI has added IV fluconazole as well. ID was consulted. All abx discontinued on 12/13/2016 per ID. - Patient is afebrile, WBC improved. - General surgery, GI following. Continue TPN. - Evaluated by home health today. - Radiation induced esophageal stricture - Esophageal dilatation done recently. - Patient will likely need EGD with dilatation and/or stent placement. - History of Non-small cell lung cancer - s/p chemo, radiation therapy. - Left sided pleural effusion - Etiology is not clear. Can be observed. - Currently patient is not requiring any supplemental O2. - If persistent, diagnostic thoracentesis can be considered to rule out lung cancer progression. - Hypokalemia - likely due to GI loss. - Magnesium is 2.1 - K+ is 3.0, improved to 3.4, 3.5. - Hypothyroidism - continue Levothyroxine 75mcg Qday. - Hypertension - continue Lisinopril 10mg Qday. Full code. Lovenox. Discharge Plan: If home health is arranged, including TPN, we can possibly discharge patient home on 12/15/2016. Gamaliel Cruz DO Dec 14, 2016 14:52
[2016-12-14 16:00] VITALS: BP 117/72; PULSE 99; RESP 19; TEMP 97.4; O2SAT 91
[2016-12-14] MEDS ORDERED: HYDROmorphone HCL PF 1 MG/ML VIAL IV PUSH ONE (22:45)
[2016-12-14] MEDS: ENOXAPARIN SODIUM 40 MG/0.4 ML SYRINGE SQ SCH (22:45)
[2016-12-14] MEDS: FAT EMULSION 20% INJ 250 ML (@10 mls/hr) IV-CENTRAL SCH (22:46)
[2016-12-14] MEDS: AMITRIPTYLINE HCL 25 MG TAB PO SCH (22:46)
[2016-12-14] MEDS: MULTIVITAMIN INJ 10 ML, FOLIC ACID INJ 1 MG in AMINO ACID IN D5W W/ELECTROLYT 2,000 ML IV SCH ×3 (22:47)
[2016-12-14 23:00] VITALS: BP 146/68; PULSE 107; RESP 18; TEMP 96.9; O2SAT 96
[2016-12-15] VITALS: BP 116/76; PULSE 95; RESP 18; TEMP 96; O2SAT 96
[2016-12-15 00:32] LABS: AUTOMATED NEUTROPHIL # 10.5 TH/MM3 (1.8-7.7); BASOPHIL # 0.1 TH/MM3 (0-0.2); BASOPHIL % 0.5 % (0.0-2.0); EOSINOPHIL # 0.4 TH/MM3 (0-0.4); EOSINOPHIL % 2.9 % (0.0-4.0); HEMATOCRIT 30.3 % (35.0-46.0); HEMO FLAGS DIFF FINAL; LYMPH % 12.9 % (9.0-44.0); LYMPHOCYTE # 1.7 TH/MM3 (1.0-4.8); MEAN CELL VOLUME 85.3 FL (80.0-100.0); MEAN CORPUSCULAR HEMOGLOBIN 27.6 PG (27.0-34.0); MEAN CORPUSCULAR HGB CONC 32.4 % (32.0-36.0); MONO % 4.9 % (0.0-8.0); NEUT % 78.8 % (16.0-70.0); PLATELET COUNT 340 TH/MM3 (150-450); RED BLOOD COUNT 3.55 MIL/MM3 (4.00-5.30); RED CELL DISTRIBUTION WIDTH 16.8 % (11.6-17.2); WHITE BLOOD COUNT 13.3 TH/MM3 (4.0-11.0)
[2016-12-15 00:49] LABS: MAGNESIUM 1.8 MG/DL (1.5-2.5)
[2016-12-15 00:58] LABS: POTASSIUM 2.6 MEQ/L (3.5-5.1)
[2016-12-15] MEDS ORDERED: POTASSIUM CHLORIDE 20 MEQ CONTROLLED RELEASE TAB PO ONE (01:15)
[2016-12-15] MEDS: POTASSIUM CHLOR 20 MEQ PREMIX 100 ML IV SCH ×2 (01:24→04:37)
[2016-12-15] MEDS ORDERED: POTASSIUM CHLORIDE 25 MEQ EFFERVESCENT TAB PO ONE (02:00)
[2016-12-15] MEDS: HYDROmorphone HCL PF 1 MG/ML VIAL IV PUSH PRN ×5 (02:16→20:19)
[2016-12-15 04:00] VITALS: BP 120/59; PULSE 98; RESP 18; TEMP 97.3; O2SAT 95
[2016-12-15] MEDS: LEVOTHYROXINE SODIUM 75 MCG TAB PO SCH (04:38)
[2016-12-15 08:00] VITALS: BP 120/65; PULSE 102; RESP 16; TEMP 95.2; O2SAT 92
[2016-12-15] MEDS ORDERED: MAGNESIUM SULFATE 1 GM PREMIX 100 ML IV ONE (09:00)
[2016-12-15] MEDS: SODIUM CHLORIDE 0.9% FLUSH 10 ML FLUSH IV FLUSH SCH ×2 (09:00→20:19)
[2016-12-15] MEDS: LISINOPRIL 10 MG TAB PO SCH (11:03)
--- NOTE | 2016-12-15 11:04 | HHI.PR ---
Subjective Remarks Follow up for PEG tube complication with patent fistula tract through abdominal wall, NSCLC, radiation esophagitis. Patient complains of a lot of left sided abdominal pain. She feels that she waited too long for pain meds. No fever, chills. Had a small BM today. Tolerating TPN well. Ostomy output is decreasing. Objective Vitals Vital Signs Date Time Temp Pulse Resp B/P Pulse Ox O2 Delivery O2 Flow Rate FiO2 12/15/16 08:00 95.2 102 16 120/65 92 12/15/16 04:00 97.3 98 18 120/59 95 12/15/16 00:00 96.0 95 18 116/76 96 12/14/16 23:00 96.9 107 18 146/68 96 12/14/16 16:00 97.4 99 19 117/72 91 12/14/16 12:00 97.3 93 20 142/84 93 I/O 12/14/16 12/14/16 12/14/16 12/15/16 12/15/16 12/15/16 07:00 15:00 23:00 07:00 15:00 23:00 Intake Total 1749 ml 1294 ml 958 ml 974 ml Output Total 700 ml 915 ml 320 ml 350 ml Balance 1049 ml 379 ml 638 ml 624 ml Intake Oral 0 ml IV Total 986 ml 743 ml 419 ml 554 ml TPN/PPN 629 ml 455 ml 454 ml 354 ml Lipid 134 ml 96 ml 85 ml 66 ml Output Urine Total 600 ml 675 ml Drainage Total 100 ml 240 ml 320 ml 350 ml # Voids 2 # Bowel Movements 0 Result Diagram: 12/15/16 0015 12/15/16 0015 Imaging Last Impressions Abdomen/Pelvis CT 12/10/16 0000 Signed Impressions: Service Date/Time: Saturday, December 10, 2016 20:17 - CONCLUSION: 1. Focal thickening of the left rectus muscle with sinus tract extending from the lumen of the stomach into the rectus, presumably at site of prior percutaneous gastrostomy. 2. Moderate-sized left pleural effusion. No evidence of ascites. 3. 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 4. Sigmoid diverticulosis without radiographic evidence of diverticulitis. Armando Harrington MD Objective Remarks GENERAL: AOx3, NAD. SKIN: Warm and dry. HEAD: Normocephalic. EYES: No scleral icterus. No injection or drainage. NECK: Supple, trachea midline. No JVD or lymphadenopathy. CARDIOVASCULAR: Regular rate and rhythm without murmurs, gallops, or rubs. RESPIRATORY: Breath sounds equal bilaterally. No accessory muscle use. GASTROINTESTINAL: Abdomen soft, non-tender, nondistended. Ostomy bag in place. MUSCULOSKELETAL: No cyanosis, or edema. BACK: Nontender without obvious deformity. No CVA tenderness. A/P Problem List: (1) Abdominal wall sinus ICD Code: K63.2 Status: Acute (2) Non-small cell lung cancer (NSCLC) ICD Code: C34.90 Status: Acute (3) Pleural effusion on left ICD Code: J90 Status: Acute (4) Radiation-induced esophageal stricture ICD Code: K22.2 Status: Acute Assessment and Plan Ms. Valdovinos is a 76 year old female with a history of NSCLC, radiation esophagitis presents to the ED due to complication of the PEG tube insertion site. PEG Tube was removed recently due to large leakage. 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 Currently have ostomy bag. - Due to purulent drainage, WBC 13.6, we started patient on broad spectrum Abx - Vancomycin and Zosyn IV. - GI has added IV fluconazole as well. ID was consulted. All abx discontinued on 12/13/2016 per ID. - Patient is afebrile, WBC improved. - General surgery, GI following. Continue TPN. - Evaluated by home health today. - Continue IV Dilaudid PRN. Will add Fentanyl patch 25mcg Q3days. - Radiation induced esophageal stricture - Esophageal dilatation done recently. - Patient will likely need EGD with dilatation and/or stent placement. - History of Non-small cell lung cancer - s/p chemo, radiation therapy. - Left sided pleural effusion - Etiology is not clear. Can be observed. - Currently patient is not requiring any supplemental O2. - If persistent, diagnostic thoracentesis can be considered to rule out lung cancer progression. - Hypokalemia - likely due to GI loss. - Magnesium is 1.8 - K+ is 2.6 this AM. PO and IV KCL given. - Will give Magnesium sulfate 1 g as well. - Hypothyroidism - continue Levothyroxine 75mcg Qday. - Hypertension - continue Lisinopril 10mg Qday. Full code. Lovenox. Gamaliel Cruz DO Dec 15, 2016 11:04 Gamaliel Cruz DO Dec 15, 2016 11:04 am
[2016-12-15 12:00] VITALS: BP 115/57; PULSE 84; RESP 17; TEMP 97.1; O2SAT 94
[2016-12-15] MEDS: fentaNYL 25 MCG/HR PATCH T-DERMAL SCH (13:03)
--- NOTE | 2016-12-15 15:50 | HHI.GIFU ---
Subjective Remarks Pt getting back into bed. Some discomfort to the left of the old peg tube site. States the drainage has decreased slightly. Objective Vitals I&O Vital Signs Date Time Temp Pulse Resp B/P Pulse Ox O2 Delivery O2 Flow Rate FiO2 12/15/16 12:00 97.1 84 17 115/57 94 12/15/16 08:00 95.2 102 16 120/65 92 12/15/16 04:00 97.3 98 18 120/59 95 12/15/16 00:00 96.0 95 18 116/76 96 12/14/16 23:00 96.9 107 18 146/68 96 12/14/16 16:00 97.4 99 19 117/72 91 I/O 12/14/16 12/14/16 12/14/16 12/15/16 12/15/16 12/15/16 07:00 15:00 23:00 07:00 15:00 23:00 Intake Total 1749 ml 1294 ml 958 ml 974 ml 0 ml Output Total 700 ml 915 ml 320 ml 350 ml 4 ml Balance 1049 ml 379 ml 638 ml 624 ml -4 ml Intake Oral 0 ml 0 ml IV Total 986 ml 743 ml 419 ml 554 ml TPN/PPN 629 ml 455 ml 454 ml 354 ml Lipid 134 ml 96 ml 85 ml 66 ml Output Urine Total 600 ml 675 ml 4 ml Drainage Total 100 ml 240 ml 320 ml 350 ml # Voids 2 # Bowel Movements 0 1 Laboratory Laboratory Tests Test 12/15/16 00:15 White Blood Count 13.3 Red Blood Count 3.55 Hemoglobin 9.8 Hematocrit 30.3 Mean Corpuscular Volume 85.3 Mean Corpuscular Hemoglobin 27.6 Mean Corpuscular Hemoglobin 32.4 Concent Red Cell Distribution Width 16.8 Platelet Count 340 Mean Platelet Volume 8.2 Neutrophils (%) (Auto) 78.8 Lymphocytes (%) (Auto) 12.9 Monocytes (%) (Auto) 4.9 Eosinophils (%) (Auto) 2.9 Basophils (%) (Auto) 0.5 Neutrophils # (Auto) 10.5 Lymphocytes # (Auto) 1.7 Monocytes # (Auto) 0.7 Eosinophils # (Auto) 0.4 Basophils # (Auto) 0.1 CBC Comment DIFF FINAL Differential Comment Sodium Level 142 Potassium Level 2.6 Chloride Level 104 Carbon Dioxide Level 31.0 Anion Gap 7 Blood Urea Nitrogen 12 Creatinine 0.39 Estimat Glomerular Filtration 159 Rate Random Glucose 129 Calcium Level 8.0 Magnesium Level 1.8 Date/Time Procedure Status Source Growth 12/11/16 17:57 Gram Stain - Final Complete Fluid Other 12/11/16 17:57 Body Fluid Culture - Final Complete Fluid Other NO GROWTH IN 72 HRS.--AEROBICALLY OR ... Imaging Last Impressions Abdomen/Pelvis CT 12/10/16 0000 Signed Impressions: Service Date/Time: Saturday, December 10, 2016 20:17 - CONCLUSION: 1. Focal thickening of the left rectus muscle with sinus tract extending from the lumen of the stomach into the rectus, presumably at site of prior percutaneous gastrostomy. 2. Moderate-sized left pleural effusion. No evidence of ascites. 3. 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 4. Sigmoid diverticulosis without radiographic evidence of diverticulitis. Armando Harrington MD Physical Exam HEENT: Normocephalic; atraumatic CHEST: CTA CARDIAC: RRR with no murmur gallop or rubs. ABDOMEN: Soft, nondistended, mild tenderness at PEG tube insertion site, no hepatosplenomegaly; bowel sounds are present x 4. Collecting bag to the site of PEG tube insertion with dark drainage. No erythema to surrounding skin EXTREMITIES: No clubbing, cyanosis, or edema. SKIN: Normal; no rash; no jaundice. DEBT COLLECTION SPECIALIST: No focal deficits; alert and oriented x 3 Assessment and Plan Plan ASSESSMENT: - Fistula at old peg tube site. Pt came to office on 12/08 for peg tube site pain and drainage. The tube was noted to be dislodged and was completely removed. The incision was packed and she was given Augmentin suspension. She reports that since the tube was removed, it has been draining copious amounts of purulent She was seen in office today (12/10/16) with significant leakage from the peg tube site, with moderate erythema noted surrounding the site. She was sent to the hospital for IV antibiotics, TPN, and possible I&D. She denies fevers/chills. Abdomen/Pelvis CT (12/10/16)----> 1. Focal thickening of the left rectus muscle with sinus tract extending from the lumen of the stomach into the rectus, presumably at site of prior percutaneous gastrostomy. 2. Moderate-sized left pleural effusion. No evidence of ascites. 3. 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 4. Sigmoid diverticulosis without radiographic evidence of diverticulitis. Fistula site with drainage bag with large amount of dark drainage. NPO. TPN. Wound culture with lactobacillus species. Fluid with no growth x 48 hours. Site itself much improved- not red or indurated. - Leukocytosis secondary to above. Improving. 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 S/P multiple dilatations. She reports that there was some talk of a stent at one point, but that this was not able to be done secondary to the stricture being so tight. EGD with PEG tube placement (11/29/16)----> mid esophageal stricture with inflammation consistent with recurring radiation esophagitis, s/p dilation with 12, 14, normal stomach, normal duodenum, s/p peg tube placement. She was evaluated by the sports medicine coordinator at that time and they had recommended Jevity 1.5 bolus feedings 240 mls at 8am, 11am, 2pm, 5pm, 8pm with 60ml flushes before feeding and 120cc flushes after feeding. Plan will be for EGD with dilatation, possible stent placement once tract heals. 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 S/P chemotherapy and radiotherapy, completed on 09/01/16. PET scan scheduled as outpatient. - GERD. PPI - Hypokalemia, HTN, Hypothyroidism, COPD, Hyperlipidemia, Macular degeneration per attending. PLAN: - NPO - TPN - PPI - GS following - ID following - Monitor labs - Supportive care - Dr. Monzon will evlauate pt today vs. tomorrow and see if she would benefit from clip to assist with healing - Approximate length of time for TPN will be determined after patient evaluated by Dr. Monzon - Further recommendations to follow based on results of above - EGD with dilatation and possible stent placement once fistula heals - Pt seen and examined by Dr. Galaviz and myself and this note is written on his behalf Venecia Patel Dec 15, 2016 15:50
[2016-12-15 16:00] VITALS: BP 120/57; PULSE 96; RESP 18; TEMP 97.3; O2SAT 95
--- NOTE | 2016-12-15 18:05 | HHI.PR ---
Subjective Subjective Notes Resting in bed No issues Objective Vitals/I&O Vital Signs Date Time Temp Pulse Resp B/P Pulse Ox O2 Delivery O2 Flow Rate FiO2 12/15/16 16:00 97.3 96 18 120/57 95 12/12/16 19:59 21 Labs Laboratory Tests Test 12/15/16 00:15 White Blood Count 13.3 Red Blood Count 3.55 Hemoglobin 9.8 Hematocrit 30.3 Mean Corpuscular Volume 85.3 Mean Corpuscular Hemoglobin 27.6 Mean Corpuscular Hemoglobin 32.4 Concent Red Cell Distribution Width 16.8 Platelet Count 340 Mean Platelet Volume 8.2 Neutrophils (%) (Auto) 78.8 Lymphocytes (%) (Auto) 12.9 Monocytes (%) (Auto) 4.9 Eosinophils (%) (Auto) 2.9 Basophils (%) (Auto) 0.5 Neutrophils # (Auto) 10.5 Lymphocytes # (Auto) 1.7 Monocytes # (Auto) 0.7 Eosinophils # (Auto) 0.4 Basophils # (Auto) 0.1 CBC Comment DIFF FINAL Differential Comment Sodium Level 142 Potassium Level 2.6 Chloride Level 104 Carbon Dioxide Level 31.0 Anion Gap 7 Blood Urea Nitrogen 12 Creatinine 0.39 Estimat Glomerular Filtration 159 Rate Random Glucose 129 Calcium Level 8.0 Magnesium Level 1.8 Date/Time Procedure Status Source Growth 12/11/16 17:57 Gram Stain - Final Complete Fluid Other 12/11/16 17:57 Body Fluid Culture - Final Complete Fluid Other NO GROWTH IN 72 HRS.--AEROBICALLY OR ... Cardiovascular: Regular Lungs: Clear Abdomen: Other (prior PEG site with ostomy appliance in place ) Extremities: No edema A/P Assessment and Plan 76 year old female with PMhx significant for non-small cell carcinoma of the lung status post chemotherapy and radiation; esophageal strictures; PEG tube malfunction--- currently with patent fistula tract -Continue ostomy wound back to fistula for drainage collection; place stoma ring and stoma paste to exposed skin -Continue TPN -Out of bed as tolerated -Pain control Attending Statement patient seen at bedside ostomy bag for control of drainage discussed with patients Attestation The exam, history, and the medical decision-making described in the above note were completed with the assistance of the mid-level provider. I reviewed and agree with the findings presented. I attest that I had a [id number] encounter with the patient on the same day, and personally performed and documented my assessment and findings in the medical record. Patti Rey Dec 15, 2016 18:05 Jese Nice MD Dec 19, 2016 16:10
[2016-12-15 20:00] VITALS: BP 122/80; PULSE 103; RESP 21; TEMP 98.7; O2SAT 97
[2016-12-15] MEDS: MULTIVITAMIN INJ 10 ML, FOLIC ACID INJ 1 MG in AMINO ACID IN D5W W/ELECTROLYT 2,000 ML IV SCH ×3 (20:19)
[2016-12-15] MEDS: AMITRIPTYLINE HCL 25 MG TAB PO SCH (20:19)
[2016-12-15] MEDS: FAT EMULSION 20% INJ 250 ML (@10 mls/hr) IV-CENTRAL SCH (20:19)
[2016-12-15] MEDS: ENOXAPARIN SODIUM 40 MG/0.4 ML SYRINGE SQ SCH (20:19)
[2016-12-15] MEDS: DEXT 5%-NACL 0.9% 1000 ML INJ 1,000 ML IV SCH (20:39)
[2016-12-16] VITALS: BP 107/70; PULSE 118; RESP 20; TEMP 96.9; O2SAT 95
[2016-12-16] MEDS: HYDROmorphone HCL PF 1 MG/ML VIAL IV PUSH PRN ×6 (00:10→23:37)
[2016-12-16 04:00] VITALS: BP 109/53; PULSE 88; RESP 21; TEMP 96.4; O2SAT 96
[2016-12-16] MEDS: LEVOTHYROXINE SODIUM 75 MCG TAB PO SCH (06:44)
[2016-12-16 08:00] VITALS: BP 97/57; PULSE 92; RESP 17; TEMP 96.3; O2SAT 93
--- NOTE | 2016-12-16 09:18 | HHI.PR ---
Subjective Remarks Follow up for abdominal wall fistula, PEG tube complications. Patient is very anxious this morning due to unable to draw blood from port. No fever, chills. Pain is better controlled. Objective Vitals Vital Signs Date Time Temp Pulse Resp B/P Pulse Ox O2 Delivery O2 Flow Rate FiO2 12/16/16 08:00 96.3 92 17 97/57 93 12/16/16 04:00 96.4 88 21 109/53 96 12/16/16 00:00 96.9 118 20 107/70 95 12/15/16 20:00 98.7 103 21 122/80 97 12/15/16 16:00 97.3 96 18 120/57 95 12/15/16 12:00 97.1 84 17 115/57 94 I/O 12/15/16 12/15/16 12/15/16 12/16/16 12/16/16 12/16/16 07:00 15:00 23:00 07:00 15:00 23:00 Intake Total 974 ml 0 ml 984 ml 1436 ml Output Total 350 ml 4 ml 50 ml Balance 624 ml -4 ml 984 ml 1386 ml Intake Oral 0 ml 0 ml 0 ml IV Total 554 ml 646 ml 813 ml TPN/PPN 354 ml 276 ml 520 ml Lipid 66 ml 62 ml 103 ml Output Urine Total 4 ml Drainage Total 350 ml 50 ml # Voids 1 3 # Bowel Movements 1 1 Result Diagram: 12/15/16 0015 12/15/16 0015 Imaging Last Impressions Abdomen/Pelvis CT 12/10/16 0000 Signed Impressions: Service Date/Time: Saturday, December 10, 2016 20:17 - CONCLUSION: 1. Focal thickening of the left rectus muscle with sinus tract extending from the lumen of the stomach into the rectus, presumably at site of prior percutaneous gastrostomy. 2. Moderate-sized left pleural effusion. No evidence of ascites. 3. 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 4. Sigmoid diverticulosis without radiographic evidence of diverticulitis. Armando Harrington MD Objective Remarks GENERAL: AOx3, NAD. SKIN: Warm and dry. HEAD: Normocephalic. EYES: No scleral icterus. No injection or drainage. NECK: Supple, trachea midline. No JVD or lymphadenopathy. CARDIOVASCULAR: Regular rate and rhythm without murmurs, gallops, or rubs. RESPIRATORY: Breath sounds equal bilaterally. No accessory muscle use. GASTROINTESTINAL: Abdomen soft, non-tender, nondistended. Ostomy bag in place. MUSCULOSKELETAL: No cyanosis, or edema. BACK: Nontender without obvious deformity. No CVA tenderness. Procedures None. A/P Problem List: (1) Abdominal wall sinus ICD Code: K63.2 Status: Acute (2) Non-small cell lung cancer (NSCLC) ICD Code: C34.90 Status: Acute (3) Pleural effusion on left ICD Code: J90 Status: Acute (4) Radiation-induced esophageal stricture ICD Code: K22.2 Status: Acute Assessment and Plan Ms. Valdovinos is a 76 year old female with a history of NSCLC, radiation esophagitis presents to the ED due to complication of the PEG tube insertion site. PEG Tube was removed recently due to large leakage. 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 Currently have ostomy bag. - Due to purulent drainage, WBC 13.6, we started patient on broad spectrum Abx - Vancomycin and Zosyn IV. - GI has added IV fluconazole as well. ID was consulted. All abx discontinued on 12/13/2016 per ID. - Patient is afebrile, WBC improved. - General surgery, GI following. Continue TPN. - Evaluated by home health. - Continue IV Dilaudid PRN. Continue Fentanyl patch 25mcg Q3days. - Radiation induced esophageal stricture - Esophageal dilatation done recently. - Patient will likely need EGD with dilatation and/or stent placement. - History of Non-small cell lung cancer - s/p chemo, radiation therapy. - Left sided pleural effusion - Etiology is not clear. Can be observed. - Currently patient is not requiring any supplemental O2. - If persistent, diagnostic thoracentesis can be considered to rule out lung cancer progression. - Hypokalemia - likely due to GI loss. - Magnesium is 1.8 - received IV Magnesium sulfate. - K+ is 2.6 on 12/16/2015. BMP pending this AM. - Hypothyroidism - continue Levothyroxine 75mcg Qday. - Hypertension - continue Lisinopril 10mg Qday. - Port access - Per RN, it was difficult to use port properly today. Will do a heparin flush. Full code. Lovenox. Gamaliel Cruz DO Dec 16, 2016 9:18 am
[2016-12-16] MEDS: LISINOPRIL 10 MG TAB PO SCH (09:42)
[2016-12-16] MEDS: SODIUM CHLORIDE 0.9% FLUSH 10 ML FLUSH IV FLUSH SCH ×2 (09:47→20:59)
[2016-12-16] MEDS ORDERED: FENT25T T-DERMAL (10:28)
[2016-12-16] MEDS ORDERED: ZOFR4TAB3 SL (10:28)
--- NOTE | 2016-12-16 10:30 | HHI.FF ---
Face to Face Verification Diagnosis: (1) Abdominal wall sinus (2) Radiation-induced esophageal stricture (3) Non-small cell lung cancer (NSCLC) (4) Dysphagia (5) Esophageal stricture Physical Therapy Order: Evaluate and Treat, Improve ambulation, Strength and gait training Home Health Nursing Order: Signs/symptoms of disease process Medication education-adverse effect Nursing assessment with vital signs I have seen patient Alina Valdovinos on 12/16/16. My clinical findings support the need for the requested home health care services because: Patient has SOB Deconditioned w/ increased weakness Limited ability to care for self Need for psychosocial assistance Impaired cognition/judgement High risk of falls Infection w/ risk of complications I certify that my clinical findings support that this patient is homebound because: Unsteady gait/balance Unsafe to leave home unassisted Need for psychosocial assistance Unable to use public transportation Gamaliel Cruz DO Dec 16, 2016 10:30 am
[2016-12-16 12:00] VITALS: BP 108/55; PULSE 92; RESP 18; TEMP 96.3; O2SAT 93
[2016-12-16 14:25] LABS: AUTOMATED NEUTROPHIL # 6.9 TH/MM3 (1.8-7.7); BASOPHIL # 0.1 TH/MM3 (0-0.2); BASOPHIL % 0.7 % (0.0-2.0); EOSINOPHIL # 0.4 TH/MM3 (0-0.4); HEMATOCRIT 30.2 % (35.0-46.0); HEMO FLAGS DIFF FINAL; LYMPH % 22.3 % (9.0-44.0); LYMPHOCYTE # 2.4 TH/MM3 (1.0-4.8); MEAN CELL VOLUME 86.1 FL (80.0-100.0); MEAN CORPUSCULAR HEMOGLOBIN 28.4 PG (27.0-34.0); MONO % 7.2 % (0.0-8.0); NEUT % 65.8 % (16.0-70.0); PLATELET COUNT 334 TH/MM3 (150-450); RED BLOOD COUNT 3.51 MIL/MM3 (4.00-5.30); WHITE BLOOD COUNT 10.5 TH/MM3 (4.0-11.0)
[2016-12-16 14:50] LABS: BICARBONATE 27.8 MEQ/L (21.0-32.0); POTASSIUM 3.1 MEQ/L (3.5-5.1)
[2016-12-16] MEDS: ONDANSETRON HCL 4 MG/2 ML VIAL IV PUSH PRN ×2 (15:38→23:38)
[2016-12-16] MEDS: DEXT 5%-NACL 0.9% 1000 ML INJ 1,000 ML IV SCH ×2 (15:48→21:07)
[2016-12-16 16:00] VITALS: BP 122/81; PULSE 107; RESP 15; TEMP 97.2; O2SAT 92
--- NOTE | 2016-12-16 16:58 | HHI.PR ---
Subjective Subjective Notes Resting in bed Feeling stronger today Objective Vitals/I&O Vital Signs Date Time Temp Pulse Resp B/P Pulse Ox O2 Delivery O2 Flow Rate FiO2 12/16/16 12:00 96.3 92 18 108/55 93 12/12/16 19:59 21 Labs Laboratory Tests Test 12/16/16 13:49 White Blood Count 10.5 Red Blood Count 3.51 Hemoglobin 10.0 Hematocrit 30.2 Mean Corpuscular Volume 86.1 Mean Corpuscular Hemoglobin 28.4 Mean Corpuscular Hemoglobin 33.0 Concent Red Cell Distribution Width 18.0 Platelet Count 334 Mean Platelet Volume 8.5 Neutrophils (%) (Auto) 65.8 Lymphocytes (%) (Auto) 22.3 Monocytes (%) (Auto) 7.2 Eosinophils (%) (Auto) 4.0 Basophils (%) (Auto) 0.7 Neutrophils # (Auto) 6.9 Lymphocytes # (Auto) 2.4 Monocytes # (Auto) 0.8 Eosinophils # (Auto) 0.4 Basophils # (Auto) 0.1 CBC Comment DIFF FINAL Differential Comment Sodium Level 140 Potassium Level 3.1 Chloride Level 105 Carbon Dioxide Level 27.8 Anion Gap 7 Blood Urea Nitrogen 15 Creatinine 0.43 Estimat Glomerular Filtration 142 Rate Random Glucose 103 Calcium Level 8.3 Date/Time Procedure Status Source Growth 12/11/16 17:57 Gram Stain - Final Complete Fluid Other 12/11/16 17:57 Body Fluid Culture - Final Complete Fluid Other NO GROWTH IN 72 HRS.--AEROBICALLY OR ... Cardiovascular: Regular Lungs: Clear Abdomen: Non-tender, Other (wound joe ) Extremities: No edema A/P Assessment and Plan 76 year old female with PMhx significant for non-small cell carcinoma of the lung status post chemotherapy and radiation; esophageal strictures; PEG tube malfunction--- currently with patent fistula tract -Continue ostomy wound back to fistula for drainage collection; place stoma ring and stoma paste to exposed skin -Continue TPN -Out of bed as tolerated -Pain control -No surgical plans at this time Attending Statement Patient seen at bedside no surgical intervention at this time continue nutrition, fistula control Attestation The exam, history, and the medical decision-making described in the above note were completed with the assistance of the mid-level provider. I reviewed and agree with the findings presented. I attest that I had a [id number] encounter with the patient on the same day, and personally performed and documented my assessment and findings in the medical record. Patti Rey Dec 16, 2016 16:58 Jese Nice MD Dec 19, 2016 22:28
[2016-12-16] MEDS ORDERED: POTASSIUM CHLORIDE 10 MEQ CONTROLLED RELEASE TAB PO ONE (17:00)
--- NOTE | 2016-12-16 18:02 | HHI.GIFU ---
Subjective Remarks Resting in bed. States her pain is somewhat improved. States she is actually hungry. Continues to have a large amount of dark drainage from fistula into colostomy bag. Objective Vitals I&O Vital Signs Date Time Temp Pulse Resp B/P Pulse Ox O2 Delivery O2 Flow Rate FiO2 12/16/16 16:00 97.2 107 15 122/81 92 12/16/16 12:00 96.3 92 18 108/55 93 12/16/16 08:00 96.3 92 17 97/57 93 12/16/16 04:00 96.4 88 21 109/53 96 12/16/16 00:00 96.9 118 20 107/70 95 12/15/16 20:00 98.7 103 21 122/80 97 I/O 12/15/16 12/15/16 12/15/16 12/16/16 12/16/16 12/16/16 07:00 15:00 23:00 07:00 15:00 23:00 Intake Total 974 ml 0 ml 984 ml 1436 ml 0 ml Output Total 350 ml 4 ml 50 ml 200 ml Balance 624 ml -4 ml 984 ml 1386 ml 0 ml -200 ml Intake Oral 0 ml 0 ml 0 ml 0 ml IV Total 554 ml 646 ml 813 ml TPN/PPN 354 ml 276 ml 520 ml Lipid 66 ml 62 ml 103 ml Output Urine Total 4 ml Drainage Total 350 ml 50 ml 200 ml # Voids 1 3 4 # Bowel Movements 1 1 0 Laboratory Laboratory Tests Test 12/16/16 13:49 White Blood Count 10.5 Red Blood Count 3.51 Hemoglobin 10.0 Hematocrit 30.2 Mean Corpuscular Volume 86.1 Mean Corpuscular Hemoglobin 28.4 Mean Corpuscular Hemoglobin 33.0 Concent Red Cell Distribution Width 18.0 Platelet Count 334 Mean Platelet Volume 8.5 Neutrophils (%) (Auto) 65.8 Lymphocytes (%) (Auto) 22.3 Monocytes (%) (Auto) 7.2 Eosinophils (%) (Auto) 4.0 Basophils (%) (Auto) 0.7 Neutrophils # (Auto) 6.9 Lymphocytes # (Auto) 2.4 Monocytes # (Auto) 0.8 Eosinophils # (Auto) 0.4 Basophils # (Auto) 0.1 CBC Comment DIFF FINAL Differential Comment Sodium Level 140 Potassium Level 3.1 Chloride Level 105 Carbon Dioxide Level 27.8 Anion Gap 7 Blood Urea Nitrogen 15 Creatinine 0.43 Estimat Glomerular Filtration 142 Rate Random Glucose 103 Calcium Level 8.3 Date/Time Procedure Status Source Growth 12/11/16 17:57 Gram Stain - Final Complete Fluid Other 12/11/16 17:57 Body Fluid Culture - Final Complete Fluid Other NO GROWTH IN 72 HRS.--AEROBICALLY OR ... Imaging Last Impressions Abdomen/Pelvis CT 12/10/16 0000 Signed Impressions: Service Date/Time: Saturday, December 10, 2016 20:17 - CONCLUSION: 1. Focal thickening of the left rectus muscle with sinus tract extending from the lumen of the stomach into the rectus, presumably at site of prior percutaneous gastrostomy. 2. Moderate-sized left pleural effusion. No evidence of ascites. 3. 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 4. Sigmoid diverticulosis without radiographic evidence of diverticulitis. Armando Harrington MD Physical Exam HEENT: Normocephalic; atraumatic CHEST: CTA CARDIAC: RRR with no murmur gallop or rubs. ABDOMEN: Soft, nondistended, mild tenderness at PEG tube insertion site, no hepatosplenomegaly; bowel sounds are present x 4. Collecting bag to the site of PEG tube insertion with dark drainage. No erythema to surrounding skin EXTREMITIES: No clubbing, cyanosis, or edema. SKIN: Normal; no rash; no jaundice. STRATEGIC ACCOUNTS MANAGER: No focal deficits; alert and oriented x 3 Assessment and Plan Plan ASSESSMENT: - Fistula at old peg tube site. Pt came to office on 12/08 for peg tube site pain and drainage. The tube was noted to be dislodged and was completely removed. The incision was packed and she was given Augmentin suspension. She reports that since the tube was removed, it has been draining copious amounts of purulent She was seen in office today (12/10/16) with significant leakage from the peg tube site, with moderate erythema noted surrounding the site. She was sent to the hospital for IV antibiotics, TPN, and possible I&D. She denies fevers/chills. Abdomen/Pelvis CT (12/10/16)----> 1. Focal thickening of the left rectus muscle with sinus tract extending from the lumen of the stomach into the rectus, presumably at site of prior percutaneous gastrostomy. 2. Moderate-sized left pleural effusion. No evidence of ascites. 3. 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 4. Sigmoid diverticulosis without radiographic evidence of diverticulitis. Fistula site with drainage bag with large amount of dark drainage. NPO. TPN. Wound culture with lactobacillus species. Fluid with no growth x 48 hours. Site itself much improved- not red or indurated. Pain improved. - Leukocytosis secondary to above. Improving. WBC 10.5. 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 S/P multiple dilatations. She reports that there was some talk of a stent at one point, but that this was not able to be done secondary to the stricture being so tight. EGD with PEG tube placement (11/29/16)----> mid esophageal stricture with inflammation consistent with recurring radiation esophagitis, s/p dilation with 12, 14, normal stomach, normal duodenum, s/p peg tube placement. She was evaluated by the rock duster at that time and they had recommended Jevity 1.5 bolus feedings 240 mls at 8am, 11am, 2pm, 5pm, 8pm with 60ml flushes before feeding and 120cc flushes after feeding. Plan will be for EGD with dilatation, possible stent placement once tract heals. 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 S/P chemotherapy and radiotherapy, completed on 09/01/16. PET scan scheduled as outpatient. - GERD. PPI - Anemia. HH 10.0/30.2. - Hypokalemia, HTN, Hypothyroidism, COPD, Hyperlipidemia, Macular degeneration per attending. PLAN: - NPO - TPN - PPI - GS following - ID following - Monitor labs - Supportive care - Further recommendations to follow based on results of above - EGD with dilatation and possible stent placement once fistula heals - Pt seen and examined by Dr. Galaviz and myself and this note is written on his behalf Venecia Patel Dec 16, 2016 18:02
[2016-12-16 20:00] VITALS: BP 123/59; PULSE 94; RESP 16; TEMP 97.8; O2SAT 94
[2016-12-16] MEDS: AMITRIPTYLINE HCL 25 MG TAB PO SCH (20:59)
[2016-12-16] MEDS: FAT EMULSION 20% INJ 250 ML (@10 mls/hr) IV-CENTRAL SCH (21:00)
[2016-12-16] MEDS: ENOXAPARIN SODIUM 40 MG/0.4 ML SYRINGE SQ SCH (21:07)
[2016-12-16] MEDS: POTASSIUM CHLOR 10 MEQ PREMIX 100 ML IV SCH (23:17)
[2016-12-16] MEDS: MULTIVITAMIN INJ 10 ML, FOLIC ACID INJ 1 MG in AMINO ACID IN D5W W/ELECTROLYT 2,000 ML IV SCH ×3 (23:38)
[2016-12-17] VITALS: BP 125/60; PULSE 107; RESP 16; TEMP 97.9; O2SAT 92
[2016-12-17] MEDS: POTASSIUM CHLOR 10 MEQ PREMIX 100 ML IV SCH (00:46)
[2016-12-17] MEDS ORDERED: INSULIN HUMAN REGULAR 1,000 UNITS/10 ML VIAL SQ PRN (02:30)
[2016-12-17] MEDS ORDERED: CHLORHEXIDINE GLUCONATE 2 % 1 PACK (2 CLOTHS) TOPICAL PRN (02:30)
[2016-12-17] MEDS ORDERED: LACTATED RINGER'S 1000 ML IV PRN (02:30)
[2016-12-17] MEDS ORDERED: POVIDONE IODINE 5% (ANTISEPSIS KIT) 4 APPLICATIONS EACH NARE PRN (02:30)
[2016-12-17] MEDS: HYDROmorphone HCL PF 1 MG/ML VIAL IV PUSH PRN ×6 (05:32→23:39)
[2016-12-17] MEDS: LEVOTHYROXINE SODIUM 75 MCG TAB PO SCH (05:32)
[2016-12-17 07:38] LABS: BICARBONATE 26.9 MEQ/L (21.0-32.0); POTASSIUM 3.3 MEQ/L (3.5-5.1)
[2016-12-17 08:00] VITALS: BP 108/51; PULSE 105; RESP 16; TEMP 97.1; O2SAT 91
[2016-12-17] MEDS: SODIUM CHLORIDE 0.9% FLUSH 10 ML FLUSH IV FLUSH SCH ×2 (08:35→20:29)
[2016-12-17] MEDS: LISINOPRIL 10 MG TAB PO SCH (08:35)
--- NOTE | 2016-12-17 11:05 | HHI.PR ---
Subjective Remarks Follow up for abdominal wall fistula, PEG tube complications. Ms. Valdovinos is resting well, no acute concerns. She wants to undergo EGD and possible clipping as recommended by GI. Objective Vitals Vital Signs Date Time Temp Pulse Resp B/P Pulse Ox O2 Delivery O2 Flow Rate FiO2 12/17/16 08:00 97.1 105 16 108/51 91 12/17/16 06:02 20 12/17/16 00:00 97.9 107 16 125/60 92 12/16/16 20:00 97.8 94 16 123/59 94 12/16/16 16:00 97.2 107 15 122/81 92 12/16/16 12:00 96.3 92 18 108/55 93 I/O 12/16/16 12/16/16 12/16/16 12/17/16 12/17/16 12/17/16 07:00 15:00 23:00 07:00 15:00 23:00 Intake Total 1436 ml 0 ml 2463 ml 1921 ml Output Total 50 ml 200 ml 50 ml Balance 1386 ml 0 ml 2263 ml 1871 ml Intake Oral 0 ml 0 ml 720 ml IV Total 813 ml 1403 ml 1057 ml TPN/PPN 520 ml 230 ml 106 ml Lipid 103 ml 110 ml 758 ml Drainage Total 50 ml 200 ml 50 ml # Voids 3 4 2 # Bowel Movements 0 0 0 Result Diagram: 12/16/16 1349 12/17/16 0606 Imaging Last Impressions Abdomen/Pelvis CT 12/10/16 0000 Signed Impressions: Service Date/Time: Saturday, December 10, 2016 20:17 - CONCLUSION: 1. Focal thickening of the left rectus muscle with sinus tract extending from the lumen of the stomach into the rectus, presumably at site of prior percutaneous gastrostomy. 2. Moderate-sized left pleural effusion. No evidence of ascites. 3. 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 4. Sigmoid diverticulosis without radiographic evidence of diverticulitis. Armando Harrington MD Objective Remarks GENERAL: AOx3, NAD. SKIN: Warm and dry. HEAD: Normocephalic. EYES: No scleral icterus. No injection or drainage. NECK: Supple, trachea midline. No JVD or lymphadenopathy. CARDIOVASCULAR: Regular rate and rhythm without murmurs, gallops, or rubs. RESPIRATORY: Breath sounds equal bilaterally. No accessory muscle use. GASTROINTESTINAL: Abdomen soft, non-tender, nondistended. Ostomy bag in place. MUSCULOSKELETAL: No cyanosis, or edema. BACK: Nontender without obvious deformity. No CVA tenderness. Procedures 12/17/2016 EGD with clip placement A/P Problem List: (1) Abdominal wall sinus ICD Code: K63.2 Status: Acute (2) Non-small cell lung cancer (NSCLC) ICD Code: C34.90 Status: Acute (3) Pleural effusion on left ICD Code: J90 Status: Acute (4) Radiation-induced esophageal stricture ICD Code: K22.2 Status: Acute Assessment and Plan Ms. Valdovinos is a 76 year old female with a history of NSCLC, radiation esophagitis presents to the ED due to complication of the PEG tube insertion site. PEG Tube was removed recently due to large leakage. 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 Currently have ostomy bag. - Due to purulent drainage, WBC 13.6, we started patient on broad spectrum Abx - Vancomycin and Zosyn IV. - GI has added IV fluconazole as well. ID was consulted. All abx discontinued on 12/13/2016 per ID. - Patient is afebrile, WBC improved. - General surgery, GI following. Continue TPN. - Evaluated by home health. - Continue IV Dilaudid PRN. Continue Fentanyl patch 25mcg Q3days. - Patient underwent EGD with clip placement on 12/17/2016. - Radiation induced esophageal stricture - Esophageal dilatation done recently. - Patient will likely need EGD with dilatation and/or stent placement. - History of Non-small cell lung cancer - s/p chemo, radiation therapy. - Left sided pleural effusion - Etiology is not clear. Can be observed. - Currently patient is not requiring any supplemental O2. - If persistent, diagnostic thoracentesis can be considered to rule out lung cancer progression. - Hypokalemia - likely due to GI loss. - Magnesium is 1.8 - received IV Magnesium sulfate. - K+ is 3.3 on 12/17/2016 - Hypothyroidism - continue Levothyroxine 75mcg Qday. - Hypertension - continue Lisinopril 10mg Qday. Full code. Lovenox. Discharge plan: Home health including TPN arrangement made. If cleared by GI, patient can be discharged home with home health. Gamaliel Cruz DO Dec 17, 2016 11:05
--- NOTE | 2016-12-17 11:33 | HHI.GIFU ---
Subjective Remarks Resting in bed. Daughter at bedside. They have though over EGD with possible clip placement and they would like to proceed. She reports her drainage is starting to decrease and that her pain has improved. She is moving her bowel movements. Objective Vitals I&O Vital Signs Date Time Temp Pulse Resp B/P Pulse Ox O2 Delivery O2 Flow Rate FiO2 12/17/16 08:00 97.1 105 16 108/51 91 12/17/16 06:02 20 12/17/16 00:00 97.9 107 16 125/60 92 12/16/16 20:00 97.8 94 16 123/59 94 12/16/16 16:00 97.2 107 15 122/81 92 12/16/16 12:00 96.3 92 18 108/55 93 I/O 12/16/16 12/16/16 12/16/16 12/17/16 12/17/16 12/17/16 07:00 15:00 23:00 07:00 15:00 23:00 Intake Total 1436 ml 0 ml 2463 ml 1921 ml Output Total 50 ml 200 ml 50 ml Balance 1386 ml 0 ml 2263 ml 1871 ml Intake Oral 0 ml 0 ml 720 ml IV Total 813 ml 1403 ml 1057 ml TPN/PPN 520 ml 230 ml 106 ml Lipid 103 ml 110 ml 758 ml Drainage Total 50 ml 200 ml 50 ml # Voids 3 4 2 # Bowel Movements 0 0 0 Laboratory Laboratory Tests Test 12/16/16 12/17/16 13:49 06:06 White Blood Count 10.5 Red Blood Count 3.51 Hemoglobin 10.0 Hematocrit 30.2 Mean Corpuscular Volume 86.1 Mean Corpuscular Hemoglobin 28.4 Mean Corpuscular Hemoglobin 33.0 Concent Red Cell Distribution Width 18.0 Platelet Count 334 Mean Platelet Volume 8.5 Neutrophils (%) (Auto) 65.8 Lymphocytes (%) (Auto) 22.3 Monocytes (%) (Auto) 7.2 Eosinophils (%) (Auto) 4.0 Basophils (%) (Auto) 0.7 Neutrophils # (Auto) 6.9 Lymphocytes # (Auto) 2.4 Monocytes # (Auto) 0.8 Eosinophils # (Auto) 0.4 Basophils # (Auto) 0.1 CBC Comment DIFF FINAL Differential Comment Sodium Level 140 139 Potassium Level 3.1 3.3 Chloride Level 105 107 Carbon Dioxide Level 27.8 26.9 Anion Gap 7 5 Blood Urea Nitrogen 15 15 Creatinine 0.43 0.43 Estimat Glomerular Filtration 142 142 Rate Random Glucose 103 118 Calcium Level 8.3 7.5 Imaging Last Impressions Abdomen/Pelvis CT 12/10/16 0000 Signed Impressions: Service Date/Time: Saturday, December 10, 2016 20:17 - CONCLUSION: 1. Focal thickening of the left rectus muscle with sinus tract extending from the lumen of the stomach into the rectus, presumably at site of prior percutaneous gastrostomy. 2. Moderate-sized left pleural effusion. No evidence of ascites. 3. 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 4. Sigmoid diverticulosis without radiographic evidence of diverticulitis. Armando Harrington MD Physical Exam HEENT: Normocephalic; atraumatic CHEST: CTA CARDIAC: RRR with no murmur gallop or rubs. ABDOMEN: Soft, nondistended, mild tenderness at PEG tube insertion site, no hepatosplenomegaly; bowel sounds are present x 4. Drainage bag to old peg tube site draining dark drainage. No erythema to surrounding skin EXTREMITIES: No clubbing, cyanosis, or edema. SKIN: Normal; no rash; no jaundice. GAS WELDER APPRENTICE: No focal deficits; alert and oriented x 3 Assessment and Plan Plan ASSESSMENT: - Fistula at old peg tube site. Pt came to office on 12/08 for peg tube site pain and drainage. The tube was noted to be dislodged and was completely removed. The incision was packed and she was given Augmentin suspension. She reports that since the tube was removed, it has been draining copious amounts of purulent She was seen in office today (12/10/16) with significant leakage from the peg tube site, with moderate erythema noted surrounding the site. She was sent to the hospital for IV antibiotics, TPN, and possible I&D. She denies fevers/chills. Abdomen/Pelvis CT (12/10/16)----> 1. Focal thickening of the left rectus muscle with sinus tract extending from the lumen of the stomach into the rectus, presumably at site of prior percutaneous gastrostomy. 2. Moderate-sized left pleural effusion. No evidence of ascites. 3. 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 4. Sigmoid diverticulosis without radiographic evidence of diverticulitis. Fistula site with drainage bag with large amount of dark drainage. NPO. TPN. Wound culture with lactobacillus species. Fluid with no growth x 48 hours. Site itself much improved- not red or indurated. Plan is for repeat EGD today to evaluate site with possible clip placement. D/W patient and daughter and they would like to proceed. - Leukocytosis secondary to above. Improving. 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 S/P multiple dilatations. She reports that there was some talk of a stent at one point, but that this was not able to be done secondary to the stricture being so tight. EGD with PEG tube placement (11/29/16)----> mid esophageal stricture with inflammation consistent with recurring radiation esophagitis, s/p dilation with 12, 14, normal stomach, normal duodenum, s/p peg tube placement. She was evaluated by the clicker operator at that time and they had recommended Jevity 1.5 bolus feedings 240 mls at 8am, 11am, 2pm, 5pm, 8pm with 60ml flushes before feeding and 120cc flushes after feeding. Plan will be for EGD with dilatation, possible stent placement once tract heals. 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 S/P chemotherapy and radiotherapy, completed on 09/01/16. PET scan scheduled as outpatient. - GERD. PPI - Anemia. HH stable - Hypokalemia, HTN, Hypothyroidism, COPD, Hyperlipidemia, Macular degeneration per attending. PLAN: - Plan for EGD with possible clip placement - Obtain consents - NPO - TPN - PPI - GS following - ID following - Monitor labs - Supportive care - Further recommendations to follow based on results of above - EGD with dilatation and possible stent placement once fistula heals - Pt seen and examined by Dr. Galaviz and myself and this note is written on his behalf Venecia Patel Dec 17, 2016 11:33
[2016-12-17 12:00] VITALS: BP 119/56; PULSE 98; RESP 16; TEMP 97.9; O2SAT 93
[2016-12-17] MEDS: DEXT 5%-NACL 0.9% 1000 ML INJ 1,000 ML IV SCH ×2 (13:28→20:30)
[2016-12-17] MEDS ORDERED: PROPOFOL 200 MG/20 ML AMP IV ONE (15:19)
[2016-12-17] MEDS ORDERED: SILVER NITR/POTASSIUM NITRATE APPLICATORS TOPICAL ONE (15:19)
--- NOTE | 2016-12-17 16:01 | PD.PROCEDR ---
GI Procedure REFERRING PHYSICIAN Mercedez WOODWARD PERFORMED EGD with clip placement INDICATION FOR PROCEDURE Gastrocutaneous fistula PROCEDURE: The procedure, risks and benefits were discussed with Ms. Valdovinos and informed consent was obtained. Anesthesia sedated her with Diprivan. She was placed in the left lateral decubitus position. EGD: The Pentax videoscope was introduced through the oropharynx and advanced to the second portion of the duodenum under direct visualization. Retroflexion was performed in the stomach. FINDINGS: Esophagus there was mid-esophageal radiation esophagitis with stricturing but I was able to pass the scope with ease The stomach there was a large opening and on the anterior wall of the stomach that connects to the skin and I cauterized the track with silver nitrate and I applied 4 clips on the inside at the opening of the fistula in hopes to reduce the amount of gastric juice flow and an NG tube was placed so that we can suction gastric contents The duodenum was normal ESTIMATED BLOOD LOSS: None SPECIMENS REMOVED: None COMPLICATIONS: None IMPRESSION: Gastrocutaneous fistula PLAN: NG tube to low intermittent suction Supportive care Sal Monzon MD Dec 17, 2016 16:01
--- NOTE | 2016-12-17 18:12 | HHI.PR ---
Subjective Subjective Notes Resting in bed Reports she did not sleep well last night Daughter at bedside Objective Vitals/I&O Vital Signs Date Time Temp Pulse Resp B/P Pulse Ox O2 Delivery O2 Flow Rate FiO2 12/17/16 15:55 98 Nasal Cannula 2 12/17/16 15:55 98.5 98 18 135/64 Labs Laboratory Tests Test 12/17/16 06:06 Sodium Level 139 Potassium Level 3.3 Chloride Level 107 Carbon Dioxide Level 26.9 Anion Gap 5 Blood Urea Nitrogen 15 Creatinine 0.43 Estimat Glomerular Filtration 142 Rate Random Glucose 118 Calcium Level 7.5 Cardiovascular: Regular Lungs: Clear Abdomen: Other (prior PEG site with wound digital community manager to site---dark gastric contents in bag; NGT to LIWS ) Extremities: No edema A/P Assessment and Plan 76 year old female with PMhx significant for non-small cell carcinoma of the lung status post chemotherapy and radiation; esophageal strictures; PEG tube malfunction--- currently with patent fistula tract -s/p EGD with clip placement -Continue ostomy wound back to fistula for drainage collection; place stoma ring and stoma paste to exposed skin -Continue TPN -Out of bed as tolerated -Pain control -No surgical plans at this time -GS will see peripherally over the weekend; please call with questions Attending Statement Patient seen and examined at bedside still with drainage from peg site continue observation Attestation The exam, history, and the medical decision-making described in the above note were completed with the assistance of the mid-level provider. I reviewed and agree with the findings presented. I attest that I had a [id number] encounter with the patient on the same day, and personally performed and documented my assessment and findings in the medical record. Patti Rey Dec 17, 2016 18:12 Jese Nice MD Dec 21, 2016 21:54
[2016-12-17 20:00] VITALS: BP 127/75; PULSE 98; RESP 18; TEMP 97.1; O2SAT 92
[2016-12-17] MEDS: MULTIVITAMIN INJ 10 ML, FOLIC ACID INJ 1 MG in AMINO ACID IN D5W W/ELECTROLYT 2,000 ML IV SCH ×3 (20:00)
[2016-12-17] MEDS: ENOXAPARIN SODIUM 40 MG/0.4 ML SYRINGE SQ SCH (20:26)
[2016-12-17] MEDS: AMITRIPTYLINE HCL 25 MG TAB PO SCH (20:30)
[2016-12-17] MEDS: FAT EMULSION 20% INJ 250 ML (@10 mls/hr) IV-CENTRAL SCH (20:31)
[2016-12-18] VITALS: BP 108/54; PULSE 99; RESP 18; TEMP 97.6; O2SAT 93
[2016-12-18] MEDS: HYDROmorphone HCL PF 1 MG/ML VIAL IV PUSH PRN ×6 (03:12→21:36)
[2016-12-18 04:00] VITALS: BP 101/58; PULSE 99; RESP 20; TEMP 97.4; O2SAT 94
[2016-12-18] MEDS: LEVOTHYROXINE SODIUM 75 MCG TAB PO SCH (05:29)
[2016-12-18 08:00] VITALS: BP 147/60; PULSE 102; RESP 16; TEMP 96; O2SAT 91
--- NOTE | 2016-12-18 08:11 | HHI.PR ---
Subjective Remarks Ms. Valdovinos is a 76 year old female with a history of NSCLC, radiation esophagitis presents to the ED due to complication of the PEG tube insertion site. PEG Tube was removed recently due to large leakage. 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 Stable in her bedroom, discussed with nurse Mr. Foley and with her Daughter in the room, continue with mild output from her Fistula area, status post EGD and clip placement has NG tube and right upper chest port working well, patient alert and oriented , no nausea, vomit or diarrhea. Potassium 3.3 started replacement at this time with 40 meq or Potassium chloride will follow with new laboratory in the afternoon today. Objective Vital Signs Date Time Temp Pulse Resp B/P Pulse Ox O2 Delivery O2 Flow Rate FiO2 12/18/16 06:40 18 12/18/16 04:00 97.4 99 20 101/58 94 12/18/16 00:00 97.6 99 18 108/54 93 12/17/16 20:00 97.1 98 18 127/75 92 12/17/16 15:55 98 Nasal Cannula 2 12/17/16 15:55 98.5 98 18 135/64 98 12/17/16 12:00 97.9 98 16 119/56 93 I/O 12/17/16 12/17/16 12/17/16 12/18/16 12/18/16 12/18/16 07:00 15:00 23:00 07:00 15:00 23:00 Intake Total 1921 ml 1393 ml 731 ml 1499 ml Output Total 50 ml 50 ml 600 ml Balance 1871 ml 1343 ml 731 ml 899 ml Intake Oral 0 ml IV Total 1057 ml 753 ml 427 ml 730 ml TPN/PPN 106 ml 445 ml 254 ml 683 ml Lipid 758 ml 195 ml 50 ml 86 ml Gastric Drainage Total 600 ml Drainage Total 50 ml 50 ml 0 ml # Voids 2 3 # Bowel Movements 0 0 Result Diagram: 12/16/16 1349 12/17/16 0606 Imaging Last Impressions Abdomen/Pelvis CT 12/10/16 0000 Signed Impressions: Service Date/Time: Saturday, December 10, 2016 20:17 - CONCLUSION: 1. Focal thickening of the left rectus muscle with sinus tract extending from the lumen of the stomach into the rectus, presumably at site of prior percutaneous gastrostomy. 2. Moderate-sized left pleural effusion. No evidence of ascites. 3. 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 4. Sigmoid diverticulosis without radiographic evidence of diverticulitis. Armando Harrington MD Procedures 12/17/2016 EGD with clip placement Other Results Laboratory Tests Test 12/15/16 12/16/16 12/17/16 00:15 13:49 06:06 Magnesium Level 1.8 MG/DL White Blood Count 10.5 TH/MM3 Red Blood Count 3.51 MIL/MM3 Hemoglobin 10.0 GM/DL Hematocrit 30.2 % Mean Corpuscular Volume 86.1 FL Mean Corpuscular Hemoglobin 28.4 PG Mean Corpuscular Hemoglobin 33.0 % Concent Red Cell Distribution Width 18.0 % Platelet Count 334 TH/MM3 Mean Platelet Volume 8.5 FL Neutrophils (%) (Auto) 65.8 % Lymphocytes (%) (Auto) 22.3 % Monocytes (%) (Auto) 7.2 % Eosinophils (%) (Auto) 4.0 % Basophils (%) (Auto) 0.7 % Neutrophils # (Auto) 6.9 TH/MM3 Lymphocytes # (Auto) 2.4 TH/MM3 Monocytes # (Auto) 0.8 TH/MM3 Eosinophils # (Auto) 0.4 TH/MM3 Basophils # (Auto) 0.1 TH/MM3 CBC Comment DIFF FINAL Differential Comment Sodium Level 139 MEQ/L Potassium Level 3.3 MEQ/L Chloride Level 107 MEQ/L Carbon Dioxide Level 26.9 MEQ/L Anion Gap 5 MEQ/L Blood Urea Nitrogen 15 MG/DL Creatinine 0.43 MG/DL Estimat Glomerular Filtration 142 ML/MIN Rate Random Glucose 118 MG/DL Calcium Level 7.5 MG/DL Objective Remarks GENERAL: AOx3, NAD. SKIN: Warm and dry. HEAD: Normocephalic. NG tube in place. EYES: No scleral icterus. No injection or drainage. NECK: Supple, trachea midline. No JVD or lymphadenopathy. CARDIOVASCULAR: Regular rate and rhythm without murmurs, gallops, or rubs. RESPIRATORY: Breath sounds equal bilaterally. No accessory muscle use. Right upper chest Port in place. GASTROINTESTINAL: Abdomen soft, non-tender, nondistended. Ostomy bag in place. MUSCULOSKELETAL: No cyanosis, or edema. BACK: Nontender without obvious deformity. No CVA tenderness. Medications and IVs Current Medications Medications (Trade) Dose Ordered Sig/Alla Route Start Time Stop Time Status Last Admin (NS Flush) 2 ml BID IV FLUSH 12/10/16 21:00 12/16/16 20:59 (Lovenox Inj) 40 mg Q24H SQ 12/10/16 22:45 12/17/16 20:26 (Elavil) 25 mg HS PO 12/11/16 21:00 12/17/16 20:30 (Synthroid) 75 mcg DAILY@07 PO 12/11/16 07:00 12/18/16 05:29 Lisinopril 10 mg 10 mg DAILY PO 12/11/16 09:00 12/16/16 09:42 Dextrose/Sodium Chloride 1,000 ml @ 84 mls/hr [id number] IV 12/11/16 10:30 12/17/16 20:30 (Liposyn Iii 20% Inj) 250 ml @ 10 mls/hr Q24H IV-CENTRAL 12/11/16 20:00 12/17/16 20:31 (Zofran Inj) 4 mg Q6HR PRN IV PUSH 12/11/16 16:15 12/16/16 23:38 Hydromorphone HCl 1 mg 1 mg Q3H PRN IV PUSH 12/12/16 14:45 12/18/16 06:10 (Mvi-12 Inj/ Folvite Inj/ Clinimix E 09/30) 2,010.2 ml @ 50 mls/hr Q24H IV 12/13/16 20:00 12/17/16 20:00 (Duragesic 25 Mcg Patch.72 Hr) 1 patch Q3D T-DERMAL 12/15/16 12:00 12/15/16 13:03 Miscellaneous Information 1 1 Q3D T-DERMAL 12/18/16 12:00 (Lr 1000 ml Inj) 1,000 ml @ 30 mls/hr Q24H PRN IV 12/17/16 02:30 12/20/16 02:29 A/P Problem List: (1) 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 Currently have ostomy bag. - Due to purulent drainage, WBC 13.6, we started patient on broad spectrum Abx - Vancomycin and Zosyn IV. - GI has added IV fluconazole as well. ID was consulted. All abx discontinued on 12/13/2016 per ID. - Patient is afebrile, WBC improved. - General surgery, GI following. Continue TPN. - Evaluated by home health. - Continue IV Dilaudid PRN. Continue Fentanyl patch 25mcg Q3days. - Patient underwent EGD with clip placement on 12/17/2016. EGD wtih Dilatation and possible stent placement once fistula heals. - Radiation induced esophageal stricture - Esophageal dilatation done recently. - Patient will likely need EGD with dilatation and/or stent placement. - History of Non-small cell lung cancer - s/p chemo, radiation therapy. - Left sided pleural effusion - Etiology is not clear. Can be observed. - Currently patient is not requiring any supplemental O2. - If persistent, diagnostic thoracentesis can be considered to rule out lung cancer progression. - Hypokalemia - likely due to GI loss. - Magnesium is 1.8 - received replacement will follow - K+ is 3.3 on 12/17/2016 replacing now. - Hypothyroidism - continue Levothyroxine 75mcg Qday. - Hypertension - controlled. Full code. Lovenox. Discharge Planning Will need arrangements for TPN on discharge home with C planned. Syed Mensah MD Dec 18, 2016 08:11
[2016-12-18] MEDS: SODIUM CHLORIDE 0.9% FLUSH 10 ML FLUSH IV FLUSH SCH ×2 (09:00→20:38)
[2016-12-18] MEDS: POTASSIUM CHLOR 20 MEQ PREMIX 100 ML IV SCH ×2 (09:13→12:16)
[2016-12-18] MEDS: LISINOPRIL 10 MG TAB PO SCH (09:14)
[2016-12-18] MEDS: DEXT 5%-NACL 0.9% 1000 ML INJ 1,000 ML IV SCH ×2 (09:20→15:06)
[2016-12-18 12:00] VITALS: BP 109/58; PULSE 97; RESP 16; TEMP 96.4; O2SAT 92
[2016-12-18] MEDS ORDERED: REMOVE OLD DURAGESIC (FENTANYL) PATCH T-DERMAL SCH (12:00)
[2016-12-18] MEDS: fentaNYL 25 MCG/HR PATCH T-DERMAL SCH (12:16)
--- NOTE | 2016-12-18 14:22 | HHI.GIFU ---
Subjective Remarks Patient comfortable in bed denies any abdominal pain minimal drainage from her fistula Objective Vitals I&O Vital Signs Date Time Temp Pulse Resp B/P Pulse Ox O2 Delivery O2 Flow Rate FiO2 12/18/16 12:49 18 12/18/16 12:49 18 12/18/16 12:00 96.4 97 16 109/58 92 12/18/16 08:00 96.0 102 16 147/60 91 12/18/16 04:00 97.4 99 20 101/58 94 12/18/16 00:00 97.6 99 18 108/54 93 12/17/16 20:00 97.1 98 18 127/75 92 12/17/16 15:55 98 Nasal Cannula 2 12/17/16 15:55 98.5 98 18 135/64 98 I/O 12/17/16 12/17/16 12/17/16 12/18/16 12/18/16 12/18/16 07:00 15:00 23:00 07:00 15:00 23:00 Intake Total 1921 ml 1393 ml 731 ml 1499 ml 1130 ml Output Total 50 ml 50 ml 600 ml 475 ml Balance 1871 ml 1343 ml 731 ml 899 ml 655 ml Intake Oral 0 ml IV Total 1057 ml 753 ml 427 ml 730 ml 848 ml TPN/PPN 106 ml 445 ml 254 ml 683 ml 200 ml Lipid 758 ml 195 ml 50 ml 86 ml 82 ml Gastric Drainage Total 600 ml 450 ml Drainage Total 50 ml 50 ml 0 ml 25 ml # Voids 2 3 # Bowel Movements 0 0 Laboratory Laboratory Tests Test 12/17/16 06:06 Sodium Level 139 MEQ/L Potassium Level 3.3 MEQ/L Chloride Level 107 MEQ/L Carbon Dioxide Level 26.9 MEQ/L Anion Gap 5 MEQ/L Blood Urea Nitrogen 15 MG/DL Creatinine 0.43 MG/DL Estimat Glomerular Filtration 142 ML/MIN Rate Random Glucose 118 MG/DL Calcium Level 7.5 MG/DL Physical Exam HEENT: Normocephalic; atraumatic CHEST: CTA CARDIAC: RRR with no murmur gallop or rubs. ABDOMEN: Soft, nondistended, nontender fistula opening noted skin appears to be clear minimal drainage into the bag, no hepatosplenomegaly; bowel sounds are present x 4. No erythema to surrounding skin EXTREMITIES: No clubbing, cyanosis, or edema. SKIN: Normal; no rash; no jaundice. GUARD DRIVER: No focal deficits; alert and oriented x 3 Assessment and Plan Plan ASSESSMENT: - Fistula at old peg tube site. Pt came to office on 12/08 for peg tube site pain and drainage. The tube was noted to be dislodged and was completely removed. The incision was packed and she was given Augmentin suspension. She reports that since the tube was removed, it has been draining copious amounts of purulent She was seen in office today (12/10/16) with significant leakage from the peg tube site, with moderate erythema noted surrounding the site. She was sent to the hospital for IV antibiotics, TPN, and possible I&D. She denies fevers/chills. Abdomen/Pelvis CT (12/10/16)----> 1. Focal thickening of the left rectus muscle with sinus tract extending from the lumen of the stomach into the rectus, presumably at site of prior percutaneous gastrostomy. 2. Moderate-sized left pleural effusion. No evidence of ascites. 3. 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 4. Sigmoid diverticulosis without radiographic evidence of diverticulitis. Fistula site with drainage bag with large amount of dark drainage. NPO. TPN. Wound culture with lactobacillus species. Fluid with no growth x 48 hours. Site itself much improved- not red or indurated. Plan is for repeat EGD today to evaluate site with possible clip placement. D/W patient and daughter and they would like to proceed. - Leukocytosis secondary to above. Improving. 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 S/P multiple dilatations. She reports that there was some talk of a stent at one point, but that this was not able to be done secondary to the stricture being so tight. EGD with PEG tube placement (11/29/16)----> mid esophageal stricture with inflammation consistent with recurring radiation esophagitis, s/p dilation with 12, 14, normal stomach, normal duodenum, s/p peg tube placement. She was evaluated by the director of strategy & mobile at that time and they had recommended Jevity 1.5 bolus feedings 240 mls at 8am, 11am, 2pm, 5pm, 8pm with 60ml flushes before feeding and 120cc flushes after feeding. Plan will be for EGD with dilatation, possible stent placement once tract heals. 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 S/P chemotherapy and radiotherapy, completed on 09/01/16. PET scan scheduled as outpatient. - GERD. PPI - Anemia. HH stable - Hypokalemia, HTN, Hypothyroidism, COPD, Hyperlipidemia, Macular degeneration per attending. PLAN: -Status post EGD with clip placements yesterday and NG tube to low intermittent suction - NPO - TPN - PPI - GS following - ID following - Monitor labs - Supportive care - Further recommendations to follow based on results of above - EGD with dilatation and possible stent placement once fistula heals Sal Monzon MD Dec 18, 2016 14:22
[2016-12-18 16:00] VITALS: BP 123/61; PULSE 97; RESP 16; TEMP 97.1; O2SAT 90
[2016-12-18 20:00] VITALS: BP 159/63; PULSE 114; RESP 18; TEMP 97.6; O2SAT 92
[2016-12-18] MEDS: FAT EMULSION 20% INJ 250 ML (@10 mls/hr) IV-CENTRAL SCH (20:38)
[2016-12-18] MEDS: AMITRIPTYLINE HCL 25 MG TAB PO SCH (20:38)
[2016-12-18] MEDS: MULTIVITAMIN INJ 10 ML, FOLIC ACID INJ 1 MG in AMINO ACID IN D5W W/ELECTROLYT 2,000 ML IV SCH ×3 (20:39)
[2016-12-18 21:27] LABS: POTASSIUM 3.9 MEQ/L (3.5-5.1)
[2016-12-18 21:28] LABS: MAGNESIUM 1.8 MG/DL (1.5-2.5)
[2016-12-18] MEDS: ENOXAPARIN SODIUM 40 MG/0.4 ML SYRINGE SQ SCH (21:36)
[2016-12-19] VITALS: BP 115/54; PULSE 103; RESP 18; TEMP 98.3; O2SAT 90
[2016-12-19] MEDS: HYDROmorphone HCL PF 1 MG/ML VIAL IV PUSH PRN ×6 (01:15→19:55)
[2016-12-19] MEDS: LEVOTHYROXINE SODIUM 75 MCG TAB PO SCH (04:56)
[2016-12-19] MEDS: LISINOPRIL 10 MG TAB PO SCH (07:49)
[2016-12-19] MEDS: DEXT 5%-NACL 0.9% 1000 ML INJ 1,000 ML IV SCH ×2 (07:50→17:15)
[2016-12-19] MEDS: SODIUM CHLORIDE 0.9% FLUSH 10 ML FLUSH IV FLUSH SCH ×2 (07:51→21:00)
[2016-12-19 08:00] VITALS: BP 134/62; PULSE 108; RESP 25; TEMP 95.5; O2SAT 92
--- NOTE | 2016-12-19 11:24 | HHI.PR ---
Subjective Remarks Ms. Valdovinos is a 76 year old female with a history of NSCLC, radiation esophagitis presents to the ED due to complication of the PEG tube insertion site. PEG Tube was removed recently due to large leakage. 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 now Status post EGD and clip placement. 12/19: Seen in her bedroom in the presence of nurse Mr. Foley, No nausea, vomit or diarrhea but has sore throat evaluated and found with Oral Thrush, started on Nystatin and Magic Mouth wash. continue output through the abdominal wall fistula. Objective Vital Signs Date Time Temp Pulse Resp B/P Pulse Ox O2 Delivery O2 Flow Rate FiO2 12/19/16 08:19 25 12/19/16 00:00 98.3 103 18 115/54 90 12/18/16 20:00 97.6 114 18 159/63 92 12/18/16 16:00 97.1 97 16 123/61 90 12/18/16 12:49 18 12/18/16 12:00 96.4 97 16 109/58 92 I/O 12/18/16 12/18/16 12/18/16 12/19/16 12/19/16 12/19/16 07:00 15:00 23:00 07:00 15:00 23:00 Intake Total 1499 ml 1130 ml 799 ml 1860 ml Output Total 600 ml 475 ml 275 ml 600 ml Balance 899 ml 655 ml 524 ml 1260 ml Intake Oral 0 ml IV Total 730 ml 848 ml 454 ml 1072 ml TPN/PPN 683 ml 200 ml 288 ml 657 ml Lipid 86 ml 82 ml 57 ml 131 ml Gastric Drainage Total 600 ml 450 ml 200 ml 550 ml Drainage Total 0 ml 25 ml 75 ml 50 ml # Voids 4 3 # Bowel Movements 0 Result Diagram: 12/16/16 1349 12/18/162024 Imaging Last Impressions Abdomen/Pelvis CT 12/10/16 0000 Signed Impressions: Service Date/Time: Saturday, December 10, 2016 20:17 - CONCLUSION: 1. Focal thickening of the left rectus muscle with sinus tract extending from the lumen of the stomach into the rectus, presumably at site of prior percutaneous gastrostomy. 2. Moderate-sized left pleural effusion. No evidence of ascites. 3. 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 4. Sigmoid diverticulosis without radiographic evidence of diverticulitis. Armando Harrington MD Procedures 12/17/2016 EGD with clip placement Other Results Laboratory Tests Test 12/16/16 12/17/16 12/18/16 13:49 06:06 20:25 White Blood Count 10.5 TH/MM3 Red Blood Count 3.51 MIL/MM3 Hemoglobin 10.0 GM/DL Hematocrit 30.2 % Mean Corpuscular Volume 86.1 FL Mean Corpuscular Hemoglobin 28.4 PG Mean Corpuscular Hemoglobin 33.0 % Concent Red Cell Distribution Width 18.0 % Platelet Count 334 TH/MM3 Mean Platelet Volume 8.5 FL Neutrophils (%) (Auto) 65.8 % Lymphocytes (%) (Auto) 22.3 % Monocytes (%) (Auto) 7.2 % Eosinophils (%) (Auto) 4.0 % Basophils (%) (Auto) 0.7 % Neutrophils # (Auto) 6.9 TH/MM3 Lymphocytes # (Auto) 2.4 TH/MM3 Monocytes # (Auto) 0.8 TH/MM3 Eosinophils # (Auto) 0.4 TH/MM3 Basophils # (Auto) 0.1 TH/MM3 CBC Comment DIFF FINAL Differential Comment Sodium Level 139 MEQ/L Chloride Level 107 MEQ/L Carbon Dioxide Level 26.9 MEQ/L Anion Gap 5 MEQ/L Blood Urea Nitrogen 15 MG/DL Creatinine 0.43 MG/DL Estimat Glomerular Filtration 142 ML/MIN Rate Random Glucose 118 MG/DL Calcium Level 7.5 MG/DL Potassium Level 3.9 MEQ/L Magnesium Level 1.8 MG/DL Objective Remarks GENERAL: AOx3, NAD. SKIN: Warm and dry. HEAD: Normocephalic. NG tube in place. EYES: No scleral icterus. No injection or drainage. NECK: Supple, trachea midline. No JVD or lymphadenopathy. CARDIOVASCULAR: Regular rate and rhythm without murmurs, gallops, or rubs. RESPIRATORY: Breath sounds equal bilaterally. No accessory muscle use. Right upper chest Port in place. GASTROINTESTINAL: Abdomen soft, non-tender, nondistended. drainage in placed. MUSCULOSKELETAL: No cyanosis, or edema. BACK: Nontender without obvious deformity. No CVA tenderness. Medications and IVs Current Medications Medications (Trade) Dose Ordered Sig/Alla Route Start Time Stop Time Status Last Admin (NS Flush) 2 ml BID IV FLUSH 12/10/16 21:00 12/19/16 07:51 (Lovenox Inj) 40 mg Q24H SQ 12/10/16 22:45 12/18/16 21:36 (Elavil) 25 mg HS PO 12/11/16 21:00 12/18/16 20:38 (Synthroid) 75 mcg DAILY@07 PO 12/11/16 07:00 12/19/16 04:56 Lisinopril 10 mg 10 mg DAILY PO 12/11/16 09:00 12/19/16 07:49 Dextrose/Sodium Chloride 1,000 ml @ 84 mls/hr [id number] IV 12/11/16 10:30 12/19/16 07:50 (Liposyn Iii 20% Inj) 250 ml @ 10 mls/hr Q24H IV-CENTRAL 12/11/16 20:00 12/18/16 20:38 (Zofran Inj) 4 mg Q6HR PRN IV PUSH 12/11/16 16:15 12/16/16 23:38 Hydromorphone HCl 1 mg 1 mg Q3H PRN IV PUSH 12/12/16 14:45 12/19/16 11:19 (Mvi-12 Inj/ Folvite Inj/ Clinimix E 09/30) 2,010.2 ml @ 50 mls/hr Q24H IV 12/13/16 20:00 12/18/16 20:39 (Duragesic 25 Mcg Patch.72 Hr) 1 patch Q3D T-DERMAL 12/15/16 12:00 12/18/16 12:16 Miscellaneous Information 1 1 Q3D T-DERMAL 12/18/16 12:00 12/18/16 12:00 (Lr 1000 ml Inj) 1,000 ml @ 30 mls/hr Q24H PRN IV 12/17/16 02:30 12/20/16 02:29 A/P Problem List: (1) 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 Currently have ostomy bag. - Due to purulent drainage, WBC 13.6, we started patient on broad spectrum Abx - Vancomycin and Zosyn IV. - GI has added IV fluconazole as well. ID was consulted. All abx discontinued on 12/13/2016 per ID. - Patient is afebrile, WBC improved. - General surgery, GI following. Continue TPN. - Evaluated by home health. - Continue IV Dilaudid PRN. Continue Fentanyl patch 25mcg Q3days. - Patient underwent EGD with clip placement on 12/17/2016. EGD with Dilatation and possible stent placement once fistula heals. - Radiation induced esophageal stricture - Esophageal dilatation done recently. - Patient will likely need EGD with dilatation and/or stent placement. - History of Non-small cell lung cancer - s/p chemo, radiation therapy. - Left sided pleural effusion - Etiology is not clear. Can be observed. - Currently patient is not requiring any supplemental O2. - If persistent, diagnostic thoracentesis can be considered to rule out lung cancer progression. - Hypokalemia - likely due to GI loss. - Magnesium is 1.8 - received replacement will follow - K+ is 3.3 on 12/17/2016 replacing now. - Hypothyroidism - continue Levothyroxine 75mcg Qday. - Hypertension - controlled. - Oral Thrush on Nystatin and Magic Mouth wash. Full code. Lovenox. Discharge Planning Will need arrangements for TPN on discharge home with C planned. Syed Mensah MD Dec 19, 2016 11:24
[2016-12-19] MEDS: ONDANSETRON HCL 4 MG/2 ML VIAL IV PUSH PRN (11:32)
[2016-12-19 12:00] VITALS: BP 112/59; PULSE 101; RESP 19; TEMP 98.3; O2SAT 97
--- NOTE | 2016-12-19 15:58 | HHI.GIFU ---
Subjective Remarks Patient comfortable in bed she reports an anxiety attack but otherwise seems to be stable with no new complaints except that of dry throat Objective Vitals I&O Vital Signs Date Time Temp Pulse Resp B/P Pulse Ox O2 Delivery O2 Flow Rate FiO2 12/19/16 11:49 20 12/19/16 00:00 98.3 103 18 115/54 90 12/18/16 20:00 97.6 114 18 159/63 92 12/18/16 16:00 97.1 97 16 123/61 90 I/O 12/18/16 12/18/16 12/18/16 12/19/16 12/19/16 12/19/16 07:00 15:00 23:00 07:00 15:00 23:00 Intake Total 1499 ml 1130 ml 799 ml 1860 ml Output Total 600 ml 475 ml 275 ml 600 ml Balance 899 ml 655 ml 524 ml 1260 ml Intake Oral 0 ml IV Total 730 ml 848 ml 454 ml 1072 ml TPN/PPN 683 ml 200 ml 288 ml 657 ml Lipid 86 ml 82 ml 57 ml 131 ml Gastric Drainage Total 600 ml 450 ml 200 ml 550 ml Drainage Total 0 ml 25 ml 75 ml 50 ml # Voids 4 3 # Bowel Movements 0 Laboratory Laboratory Tests Test 12/18/16 20:25 Potassium Level 3.9 Magnesium Level 1.8 Physical Exam HEENT: normocephalic; atraumatic; no jaundice. NECK: Neck is supple, no JVD, no lymphadenopathy. CHEST: Chest is clear to auscultation and percussion. CARDIAC: Regular rate and rhythm with no murmur gallop or rubs. ABDOMEN: Soft, nondistended, nontender; no hepatosplenomegaly; bowel sounds are present in all four quadrants.Collection bag to the site of PEG tube insertion with clear small amounts of drainage which is different than what appears to be coming out through the NG tube EXTREMITIES: No clubbing, cyanosis, or edema. SKIN: Normal; no rash; no jaundice. PULPING MACHINE OPERATOR: No focal deficits; alert and oriented times three. Assessment and Plan Plan ASSESSMENT: - Cellulitis, PEG tube site infection. Abdomen/Pelvis CT 12/10/16 1. Focal thickening of the left rectus muscle with sinus tract extending from the lumen of the stomach into the rectus, presumably at site of prior percutaneous gastrostomy. 2. Moderate-sized left pleural effusion. No evidence of ascites. 3. 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 4. Sigmoid diverticulosis without radiographic evidence of diverticulitis. Pt came to office on 12/08 for peg tube site pain and drainage. The tube was noted to be dislodged and was completely removed. The incision was packed and she was given Augmentin suspension. She reports that since the tube was removed, it has been draining copious amounts of purulent She was seen in office today (12/10/16) with significant leakage from the peg tube site, with moderate erythema noted surrounding the site. She was sent to the hospital for IV antibiotics, TPN, and possible I&D. She denies fevers/chills. PEG tube site with collection drainage bag with moderate amount of dark discharge. WBC 14.2. C/S pending. Zosyn, Vanco. NPO. GS evaluation. ID evaluation. Hand Brim Ironer evaluation for TPN recommendations. - Leukocytosis secondary to above. 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 S/P multiple dilatations. She reports that there was some talk of a stent at one point, but that this was not able to be done secondary to the stricture being so tight. EGD with PEG tube placement (11/29/16)----> mid esophageal stricture with inflammation consistent with recurring radiation esophagitis, s/p dilation with 12, 14, normal stomach, normal duodenum, s/p peg tube placement. She was evaluated by the government auditor at that time and they had recommended Jevity 1.5 bolus feedings 240 mls at 8am, 11am, 2pm , 5pm, 8pm with 60ml flushes before feeding and 120cc flushes after feeding. 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 S/P chemotherapy and radiotherapy, completed on 09/01/16. PET scan scheduled as outpatient. - GERD. PPI - Hypokalemia, HTN, Hypothyroidism, COPD, Hyperlipidemia, Macular degeneration per attending. PLAN: - NPO - Await Hand Brim Ironer evaluation for TPN recommendations - PPI - Zosyn - Vanco - Cont. Diflucan - GS evaluation for I&D pending - ID evaluation pending - Await c/s from peg tube site - CBC in am - Supportive care -It seems that PEG site drainage has changed and has decreased and the whole. And the hope here is that the fistula opening at the gastric origin has closed We will continue to monitor and may consider a contrasted upper GI study to further evaluate for a fistula opening Sal Monzon MD Dec 19, 2016 15:58
[2016-12-19 16:00] VITALS: BP 132/61; PULSE 111; RESP 28; TEMP 96.7; O2SAT 93
[2016-12-19] MEDS: DIPHENHY/LIDO/MAG/ALUM MOUTHWASH (Adult/Peds) 60 ML BTL SWISH-SWAL SCH ×2 (16:31→22:06)
[2016-12-19] MEDS: NYSTATIN SUSP 500,000 U/5 ML CUP SWISH-SWAL SCH ×2 (17:38→22:07)
[2016-12-19 18:59] LABS: HEMATOCRIT 25.2 % (35.0-46.0); MEAN CELL VOLUME 87.5 FL (80.0-100.0); MEAN CORPUSCULAR HGB CONC 33.1 % (32.0-36.0); PLATELET COUNT 224 TH/MM3 (150-450); RED BLOOD COUNT 2.89 MIL/MM3 (4.00-5.30); RED CELL DISTRIBUTION WIDTH 18.5 % (11.6-17.2); REVIEW FLAG FINAL; WHITE BLOOD COUNT 12.3 TH/MM3 (4.0-11.0)
[2016-12-19 19:15] LABS: BICARBONATE 31.4 MEQ/L (21.0-32.0); MAGNESIUM 1.8 MG/DL (1.5-2.5); POTASSIUM 3.4 MEQ/L (3.5-5.1)
[2016-12-19 20:00] VITALS: BP 138/61; PULSE 112; RESP 19; TEMP 97.3; O2SAT 95
[2016-12-19] MEDS: FAT EMULSION 20% INJ 250 ML (@10 mls/hr) IV-CENTRAL SCH (22:05)
[2016-12-19] MEDS: MULTIVITAMIN INJ 10 ML, FOLIC ACID INJ 1 MG in AMINO ACID IN D5W W/ELECTROLYT 2,000 ML IV SCH ×3 (22:05)
[2016-12-19] MEDS: AMITRIPTYLINE HCL 25 MG TAB PO SCH (22:06)
[2016-12-19] MEDS: ENOXAPARIN SODIUM 40 MG/0.4 ML SYRINGE SQ SCH (22:07)
[2016-12-20] VITALS (7 sets, daily range): BP systolic 113–145; BP diastolic 56–66; PULSE 100–120; RESP 17–22; TEMP 97.2–98.3; O2SAT 85–95
[2016-12-20] MEDS: HYDROmorphone HCL PF 1 MG/ML VIAL IV PUSH PRN ×7 (00:49→22:01)
[2016-12-20] MEDS: DIPHENHY/LIDO/MAG/ALUM MOUTHWASH (Adult/Peds) 60 ML BTL SWISH-SWAL SCH ×4 (04:29→21:59)
[2016-12-20] MEDS: LEVOTHYROXINE SODIUM 75 MCG TAB PO SCH (04:29)
[2016-12-20 07:23] LABS: BICARBONATE 33.8 MEQ/L (21.0-32.0); MAGNESIUM 1.8 MG/DL (1.5-2.5); POTASSIUM 3.3 MEQ/L (3.5-5.1)
[2016-12-20] MEDS: ONDANSETRON HCL 4 MG/2 ML VIAL IV PUSH PRN ×3 (08:10→22:01)
--- NOTE | 2016-12-20 08:18 | HHI.PR ---
Subjective Remarks Ms. Valdovinos is a 76 year old female with a history of NSCLC, radiation esophagitis presents to the ED due to complication of the PEG tube insertion site. PEG Tube was removed recently due to large leakage. 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 now Status post EGD and clip placement. 12/20: Seen in her bedroom she has anxiety, discussed on multiple opportunities with nurse, she had some desaturation associated with anxiety, given Venlafaxine and respiratory therapy. no nausea, vomit or diarrhea , has NG tube in place Objective Vital Signs Date Time Temp Pulse Resp B/P Pulse Ox O2 Delivery O2 Flow Rate FiO2 12/20/16 00:00 97.2 108 19 135/63 95 12/19/16 20:00 97.3 112 19 138/61 95 12/19/16 16:00 96.7 111 28 132/61 93 12/19/16 15:36 18 12/19/16 12:00 98.3 101 19 112/59 97 I/O 12/19/16 12/19/16 12/19/16 12/20/16 12/20/16 12/20/16 07:00 15:00 23:00 07:00 15:00 23:00 Intake Total 1860 ml 1332 ml 1062 ml 366 ml Output Total 600 ml 875 ml 775 ml 690 ml Balance 1260 ml 457 ml 287 ml -324 ml Intake Oral 0 ml 0 ml IV Total 1072 ml 775 ml 616 ml TPN/PPN 657 ml 465 ml 372 ml 306 ml Lipid 131 ml 92 ml 74 ml 60 ml Gastric Drainage Total 550 ml 750 ml 700 ml 450 ml Drainage Total 50 ml 125 ml 75 ml 240 ml # Voids 5 1 2 Result Diagram: 12/19/16 1835 12/20/16 0640 Imaging Last Impressions Abdomen/Pelvis CT 12/10/16 0000 Signed Impressions: Service Date/Time: Saturday, December 10, 2016 20:17 - CONCLUSION: 1. Focal thickening of the left rectus muscle with sinus tract extending from the lumen of the stomach into the rectus, presumably at site of prior percutaneous gastrostomy. 2. Moderate-sized left pleural effusion. No evidence of ascites. 3. 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 4. Sigmoid diverticulosis without radiographic evidence of diverticulitis. Armando Harrington MD Procedures 12/17/2016 EGD with clip placement Other Results Laboratory Tests Test 12/16/16 12/19/16 12/20/16 13:49 18:35 06:40 Neutrophils (%) (Auto) 65.8 % Lymphocytes (%) (Auto) 22.3 % Monocytes (%) (Auto) 7.2 % Eosinophils (%) (Auto) 4.0 % Basophils (%) (Auto) 0.7 % Neutrophils # (Auto) 6.9 TH/MM3 Lymphocytes # (Auto) 2.4 TH/MM3 Monocytes # (Auto) 0.8 TH/MM3 Eosinophils # (Auto) 0.4 TH/MM3 Basophils # (Auto) 0.1 TH/MM3 CBC Comment DIFF FINAL Differential Comment White Blood Count 12.3 TH/MM3 Red Blood Count 2.89 MIL/MM3 Hemoglobin 8.4 GM/DL Hematocrit 25.2 % Mean Corpuscular Volume 87.5 FL Mean Corpuscular Hemoglobin 29.0 PG Mean Corpuscular Hemoglobin 33.1 % Concent Red Cell Distribution Width 18.5 % Platelet Count 224 TH/MM3 Mean Platelet Volume 9.1 FL Sodium Level 142 MEQ/L Potassium Level 3.3 MEQ/L Chloride Level 101 MEQ/L Carbon Dioxide Level 33.8 MEQ/L Anion Gap 7 MEQ/L Blood Urea Nitrogen 14 MG/DL Creatinine 0.35 MG/DL Estimat Glomerular Filtration 180 ML/MIN Rate Random Glucose 93 MG/DL Calcium Level 8.2 MG/DL Phosphorus Level 2.9 MG/DL Magnesium Level 1.8 MG/DL Objective Remarks GENERAL: AOx3, NAD. SKIN: Warm and dry. HEAD: Normocephalic. NG tube in place at slow suction. EYES: No scleral icterus. No injection or drainage. NECK: Supple, trachea midline. No JVD or lymphadenopathy. CARDIOVASCULAR: Regular rate and rhythm without murmurs, gallops, or rubs. RESPIRATORY: Breath sounds equal bilaterally. No accessory muscle use. Right upper chest Port in place. GASTROINTESTINAL: Abdomen soft, non-tender, nondistended. drainage in placed. MUSCULOSKELETAL: No cyanosis, or edema. BACK: Nontender without obvious deformity. No CVA tenderness. Medications and IVs Current Medications Medications (Trade) Dose Ordered Sig/Alla Route Start Time Stop Time Status Last Admin (NS Flush) 2 ml BID IV FLUSH 12/10/16 21:00 12/19/16 07:51 (Lovenox Inj) 40 mg Q24H SQ 12/10/16 22:45 12/19/16 22:07 (Elavil) 25 mg HS PO 12/11/16 21:00 12/19/16 22:06 (Synthroid) 75 mcg DAILY@07 PO 12/11/16 07:00 12/20/16 04:29 Lisinopril 10 mg 10 mg DAILY PO 12/11/16 09:00 12/19/16 07:49 Dextrose/Sodium Chloride 1,000 ml @ 84 mls/hr [id number] IV 12/11/16 10:30 12/19/16 17:15 (Liposyn Iii 20% Inj) 250 ml @ 10 mls/hr Q24H IV-CENTRAL 12/11/16 20:00 12/19/16 22:05 (Zofran Inj) 4 mg Q6HR PRN IV PUSH 12/11/16 16:15 12/20/16 08:10 Hydromorphone HCl 1 mg 1 mg Q3H PRN IV PUSH 12/12/16 14:45 12/20/16 08:11 (Mvi-12 Inj/ Folvite Inj/ Clinimix E 09/30) 2,010.2 ml @ 50 mls/hr Q24H IV 12/13/16 20:00 12/19/16 22:05 (Duragesic 25 Mcg Patch.72 Hr) 1 patch Q3D T-DERMAL 12/15/16 12:00 12/18/16 12:16 Miscellaneous Information 1 Q3D T-DERMAL 12/18/16 12:00 12/18/16 12:00 (Magic Mouthwash Pediatric/Adult Liq) 5 ml ACHS SWISH-SWAL 12/19/16 16:00 12/20/16 04:29 (Mycostatin Liq) 5 ml QID SWISH-SWAL 12/19/16 18:00 12/19/16 22:07 A/P Problem List: (1) 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 Currently have ostomy bag. - Due to purulent drainage, WBC 13.6, we started patient on broad spectrum Abx - Vancomycin and Zosyn IV. - GI has added IV fluconazole as well. ID was consulted. All abx discontinued on 12/13/2016 per ID. - Continue TPN. - Evaluated by home health. - Continue IV Dilaudid PRN. Continue Fentanyl patch 25mcg Q3days. - Patient underwent EGD with clip placement on 12/17/2016. EGD with Dilatation and possible stent placement once fistula heals. continue high output through Fistula. - Radiation induced esophageal stricture - Esophageal dilatation done recently. - Patient will likely need EGD with dilatation and/or stent placement. - History of Non-small cell lung cancer - s/p chemo, radiation therapy. - Left sided pleural effusion - Etiology is not clear. Can be observed. - Currently patient is not requiring any supplemental O2. - If persistent, diagnostic thoracentesis can be considered to rule out lung cancer progression. - Electrolyte derangement replaced and following. - Hypothyroidism - continue Levothyroxine 75mcg Qday. - Hypertension - controlled. - Oral Thrush on Nystatin and Magic Mouth wash. For pain was increased Fentanyl to 50 mcg per hour every three days added Venlafaxine for anxiety. Full code. Lovenox. Discharge Planning Will need arrangements for TPN on discharge home with C planned. Syed Mensah MD Dec 20, 2016 08:18
[2016-12-20] MEDS ORDERED: MAGNESIUM SULFATE 1 GM PREMIX 100 ML IV ONE (08:30)
[2016-12-20] MEDS: SODIUM CHLORIDE 0.9% FLUSH 10 ML FLUSH IV FLUSH SCH ×2 (09:00→21:00)
[2016-12-20] MEDS: NYSTATIN SUSP 500,000 U/5 ML CUP SWISH-SWAL SCH ×6 (09:56→21:00)
[2016-12-20] MEDS: LISINOPRIL 10 MG TAB PO SCH (09:57)
[2016-12-20] MEDS: DEXT 5%-NACL 0.9% 1000 ML INJ 1,000 ML IV SCH ×2 (10:02→22:59)
[2016-12-20] MEDS: POTASSIUM CHLOR 20 MEQ PREMIX 100 ML IV SCH ×2 (10:02→17:33)
[2016-12-20] MEDS: fentaNYL 50 MCG/HR PATCH T-DERMAL SCH (19:19)
[2016-12-20] MEDS: REMOVE OLD DURAGESIC (FENTANYL) PATCH T-DERMAL SCH (19:19)
[2016-12-20] MEDS: VENLAFAXINE HCL 25 MG TAB PO SCH (19:21)
[2016-12-20] MEDS: RESP: IPRATROPIUM 0.5 MG/2.5 ML NEB NEB SCH (19:50)
[2016-12-20] MEDS: MULTIVITAMIN INJ 10 ML, FOLIC ACID INJ 1 MG in AMINO ACID IN D5W W/ELECTROLYT 2,000 ML IV SCH ×3 (20:00)
[2016-12-20] MEDS: FAT EMULSION 20% INJ 250 ML (@10 mls/hr) IV-CENTRAL SCH (20:00)
--- NOTE | 2016-12-20 20:32 | HHI.PR ---
Subjective Subjective Notes still with anxiety, ng in place, tpn, ostomy bag Objective Vitals/I&O Vital Signs Date Time Temp Pulse Resp B/P Pulse Ox O2 Delivery O2 Flow Rate FiO2 12/20/16 19:50 95 Nasal Cannula 2.00 12/20/16 18:00 12/20/16 16:00 97.5 100 18 Labs Laboratory Tests Test 12/20/16 06:40 Sodium Level 142 Potassium Level 3.3 Chloride Level 101 Carbon Dioxide Level 33.8 Anion Gap 7 Blood Urea Nitrogen 14 Creatinine 0.35 Estimat Glomerular Filtration 180 Rate Random Glucose 93 Calcium Level 8.2 Phosphorus Level 2.9 Magnesium Level 1.8 Abdomen: Other (ostomy bag without leak) A/P Discharge Planning 76 year old female with a history of non-small cell carcinoma of the lung with s /p chemotherapy and radiotherapy, esophageal strictures, PEG tube malfunction , currently with patent fisutla tract, CT scan with no free air or abscess PLAN -s/p EGD with clip placement -Continue ostomy wound back to fistula for drainage collection; place stoma ring and stoma paste to exposed skin -Continue TPN -Out of bed as tolerated -Pain control -No surgical plans at this time - will continue to monitor Jese Nice MD Dec 20, 2016 20:32
[2016-12-20] MEDS ORDERED: guaiFENesin E.R. 600 MG TAB PO SCH (21:00)
[2016-12-20] MEDS: AMITRIPTYLINE HCL 25 MG TAB PO SCH (22:01)
[2016-12-20] MEDS: ENOXAPARIN SODIUM 40 MG/0.4 ML SYRINGE SQ SCH (22:59)
--- NOTE | 2016-12-20 23:49 | HHI.GIFU ---
Subjective Remarks Comfortable in bed complains of sore throat from the NG tube and states she's had quite a bit of drainage into the bag from the gastric cutaneous fistula Objective Vitals I&O Vital Signs Date Time Temp Pulse Resp B/P Pulse Ox O2 Delivery O2 Flow Rate FiO2 12/20/16 20:00 98.3 110 22 117/57 95 12/20/16 19:50 95 Nasal Cannula 2.00 12/20/16 18:00 95 12/20/16 16:00 97.5 100 18 145/65 92 12/20/16 12:00 97.3 109 17 113/56 90 12/20/16 08:00 97.2 120 19 141/66 85 12/20/16 00:00 97.2 108 19 135/63 95 I/O 12/19/16 12/19/16 12/19/16 12/20/16 12/20/16 12/20/16 07:00 15:00 23:00 07:00 15:00 23:00 Intake Total 1860 ml 1332 ml 1062 ml 366 ml 949 ml 0 ml Output Total 600 ml 875 ml 775 ml 690 ml 790 ml Balance 1260 ml 457 ml 287 ml -324 ml 159 ml 0 ml Intake Oral 0 ml 0 ml 0 ml 0 ml IV Total 1072 ml 775 ml 616 ml 460 ml TPN/PPN 657 ml 465 ml 372 ml 306 ml 408 ml Lipid 131 ml 92 ml 74 ml 60 ml 81 ml Gastric Drainage Total 550 ml 750 ml 700 ml 450 ml 550 ml Drainage Total 50 ml 125 ml 75 ml 240 ml 240 ml # Voids 5 1 2 5 1 # Bowel Movements 0 0 Laboratory Laboratory Tests Test 12/20/16 06:40 Sodium Level 142 Potassium Level 3.3 Chloride Level 101 Carbon Dioxide Level 33.8 Anion Gap 7 Blood Urea Nitrogen 14 Creatinine 0.35 Estimat Glomerular Filtration 180 Rate Random Glucose 93 Calcium Level 8.2 Phosphorus Level 2.9 Magnesium Level 1.8 Physical Exam HEENT: normocephalic; atraumatic; no jaundice. NECK: Neck is supple, no JVD, no lymphadenopathy. CHEST: Chest is clear to auscultation and percussion. CARDIAC: Regular rate and rhythm with no murmur gallop or rubs. ABDOMEN: Soft, nondistended, nontender; no hepatosplenomegaly; bowel sounds are present in all four quadrants.Collection bag to the site of PEG tube insertion with dark but small amount of drainage EXTREMITIES: No clubbing, cyanosis, or edema. SKIN: Normal; no rash; no jaundice. SPECIALTY FOOD PRODUCTS SUPERVISOR: No focal deficits; alert and oriented times three. Assessment and Plan Plan ASSESSMENT: - Cellulitis, PEG tube site infection. Abdomen/Pelvis CT 12/10/16 1. Focal thickening of the left rectus muscle with sinus tract extending from the lumen of the stomach into the rectus, presumably at site of prior percutaneous gastrostomy. 2. Moderate-sized left pleural effusion. No evidence of ascites. 3. 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 4. Sigmoid diverticulosis without radiographic evidence of diverticulitis. Pt came to office on 12/08 for peg tube site pain and drainage. The tube was noted to be dislodged and was completely removed. The incision was packed and she was given Augmentin suspension. She reports that since the tube was removed, it has been draining copious amounts of purulent She was seen in office today (12/10/16) with significant leakage from the peg tube site, with moderate erythema noted surrounding the site. She was sent to the hospital for IV antibiotics, TPN, and possible I&D. She denies fevers/chills. PEG tube site with collection drainage bag with moderate amount of dark discharge. WBC 14.2. C/S pending. Estephania Quinones. NPO. GS evaluation. ID evaluation. Pilot Boat Captain evaluation for TPN recommendations. - Leukocytosis secondary to above. 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 S/P multiple dilatations. She reports that there was some talk of a stent at one point, but that this was not able to be done secondary to the stricture being so tight. EGD with PEG tube placement (11/29/16)----> mid esophageal stricture with inflammation consistent with recurring radiation esophagitis, s/p dilation with 12, 14, normal stomach, normal duodenum, s/p peg tube placement. She was evaluated by the hotel casino floorperson at that time and they had recommended Jevity 1.5 bolus feedings 240 mls at 8am, 11am, 2pm , 5pm, 8pm with 60ml flushes before feeding and 120cc flushes after feeding. 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 S/P chemotherapy and radiotherapy, completed on 09/01/16. PET scan scheduled as outpatient. - GERD. PPI - Hypokalemia, HTN, Hypothyroidism, COPD, Hyperlipidemia, Macular degeneration per attending. PLAN: - NPO NG tube is removed - Await Pilot Boat Captain evaluation for TPN recommendations - PPI - Zosyn - Vanco - Cont. Diflucan - GS evaluation for I&D pending - ID evaluation pending - Await c/s from peg tube site - CBC in am - Supportive care Consider GJ tube placement endoscopically with GI for feeding and potentially getting the patient off the TPN Sal Monzon MD Dec 20, 2016 23:49
[2016-12-21] VITALS (7 sets, daily range): BP systolic 91–107; BP diastolic 44–50; PULSE 95–104; RESP 17–22; TEMP 96.2–98.2; O2SAT 92–97
[2016-12-21] MEDS: RESP: IPRATROPIUM 0.5 MG/2.5 ML NEB NEB SCH ×7 (04:00→23:56)
[2016-12-21] MEDS: ONDANSETRON HCL 4 MG/2 ML VIAL IV PUSH PRN ×3 (05:31→17:34)
[2016-12-21] MEDS: LEVOTHYROXINE SODIUM 75 MCG TAB PO SCH (05:32)
[2016-12-21] MEDS: DIPHENHY/LIDO/MAG/ALUM MOUTHWASH (Adult/Peds) 60 ML BTL SWISH-SWAL SCH ×4 (05:32→20:31)
[2016-12-21] MEDS: HYDROmorphone HCL PF 1 MG/ML VIAL IV PUSH PRN ×3 (05:35→20:46)
[2016-12-21] MEDS: VENLAFAXINE HCL 25 MG TAB PO SCH (09:00)
[2016-12-21] MEDS: NYSTATIN SUSP 500,000 U/5 ML CUP SWISH-SWAL SCH ×4 (09:31→20:32)
[2016-12-21] MEDS: LISINOPRIL 10 MG TAB PO SCH (09:32)
[2016-12-21] MEDS: SODIUM CHLORIDE 0.9% FLUSH 10 ML FLUSH IV FLUSH SCH ×2 (09:33→20:35)
[2016-12-21] MEDS: guaiFENesin SOLUTION 200 MG/10 ML CUP PO SCH ×2 (09:45→20:36)
[2016-12-21] MEDS ORDERED: POTASSIUM CHLOR 20 MEQ PREMIX 100 ML IV SCH (09:45)
--- NOTE | 2016-12-21 09:48 | HHI.GIFU ---
Subjective Remarks Resting in bed. Daughter reports that patient woke up last night and was slightly confused. Her O2 sats were low at that time and she was placed on O2 via n/c. Today, she is very congested and has a cough. Her gastric drainage is decreasing- not much overnight. (PatelVenecia Leticia JAYME) Objective Vitals I&O Vital Signs Date Time Temp Pulse Resp B/P Pulse Ox O2 Delivery O2 Flow Rate FiO2 12/21/16 09:05 94 Nasal Cannula 2.50 12/21/16 00:00 97.1 95 20 92 12/20/16 20:00 98.3 110 22 117/57 95 12/20/16 19:50 95 Nasal Cannula 2.00 12/20/16 18:00 95 12/20/16 16:00 97.5 100 18 145/65 92 12/20/16 12:00 97.3 109 17 113/56 90 I/O 12/20/16 12/20/16 12/20/16 12/21/16 12/21/16 12/21/16 07:00 15:00 23:00 07:00 15:00 23:00 Intake Total 366 ml 949 ml 1130 ml 1058 ml Output Total 690 ml 790 ml Balance -324 ml 159 ml 1130 ml 1058 ml Intake Oral 0 ml 0 ml 0 ml 0 ml IV Total 460 ml 714 ml 558 ml TPN/PPN 306 ml 408 ml 342 ml 350 ml Lipid 60 ml 81 ml 74 ml 150 ml Gastric Drainage Total 450 ml 550 ml Drainage Total 240 ml 240 ml # Voids 2 5 1 2 # Bowel Movements 0 0 0 Imaging Last Impressions Abdomen/Pelvis CT 12/10/16 0000 Signed Impressions: Service Date/Time: Saturday, December 10, 2016 20:17 - CONCLUSION: 1. Focal thickening of the left rectus muscle with sinus tract extending from the lumen of the stomach into the rectus, presumably at site of prior percutaneous gastrostomy. 2. Moderate-sized left pleural effusion. No evidence of ascites. 3. 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 4. Sigmoid diverticulosis without radiographic evidence of diverticulitis. Armando Harrington MD Physical Exam HEENT: Normocephalic; atraumatic CHEST: Resp shallow/even. O2 2.5L via n/c, o2 sat 95% CARDIAC: RRR. ABDOMEN: Soft, nondistended, mild tenderness; no hepatosplenomegaly; bowel sounds are present in all four quadrants. Collection bag to the site of old PEG tubes site. EXTREMITIES: No clubbing, cyanosis, or edema. SKIN: Normal; no rash; no jaundice. WATER RESOURCES PROJECT MANAGER: No focal deficits; alert and oriented times three. (PatelVenecia Leticiaradha DELACRUZ) Assessment and Plan Plan ASSESSMENT: - Fistula at old peg tube site. Pt came to office on 12/08 for peg tube site pain and drainage. The tube was noted to be dislodged and was completely removed. The incision was packed and she was given Augmentin suspension. She reports that since the tube was removed, it has been draining copious amounts of purulent She was seen in office today (12/10/16) with significant leakage from the peg tube site, with moderate erythema noted surrounding the site. She was sent to the hospital for IV antibiotics, TPN, and possible I&D. She denies fevers/chills. Abdomen/Pelvis CT (12/10/16)----> 1. Focal thickening of the left rectus muscle with sinus tract extending from the lumen of the stomach into the rectus, presumably at site of prior percutaneous gastrostomy. 2. Moderate-sized left pleural effusion. No evidence of ascites. 3. 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 4. Sigmoid diverticulosis without radiographic evidence of diverticulitis. Fistula site with drainage bag with large amount of dark drainage. NPO. TPN. Wound culture with lactobacillus species. Fluid with no growth x 48 hours. Site itself much improved- not red or indurated. S/P EGD with clip placement (12/17/16)----> Mid-esophageal radiation esophagitis with stricturing but I was able to pass the scope with ease, stomach there was a large opening and on the anterior wall of the stomach that connects to the skin and I cauterized the track with silver nitrate and I applied 4 clips on the inside at the opening of the fistula in hopes to reduce the amount of gastric juice flow and an NG tube was placed so that we can suction gastric contents. The duodenum was normal. The NGT was removed. Her gastric drainage is decreasing from the fistula. Pt is still considering possible endoscopic placement of G/J tube- has not made a decision today. - Cough/Hypoxia. Pt had decreased sat's and was placed on O2 2.5L via n/c overnight. They are now 95%. She has course breath sounds and cough. - Leukocytosis secondary to above. WBC went to 12.3. 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 S/P multiple dilatations. She reports that there was some talk of a stent at one point, but that this was not able to be done secondary to the stricture being so tight. EGD with PEG tube placement (11/29/16)----> mid esophageal stricture with inflammation consistent with recurring radiation esophagitis, s/p dilation with 12, 14, normal stomach, normal duodenum, s/p peg tube placement. She was evaluated by the restrooms or lounges maid at that time and they had recommended Jevity 1.5 bolus feedings 240 mls at 8am, 11am, 2pm, 5pm, 8pm with 60ml flushes before feeding and 120cc flushes after feeding. Plan will be for EGD with dilatation, possible stent placement once tract heals. 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 S/P chemotherapy and radiotherapy, completed on 09/01/16. PET scan scheduled as outpatient. - GERD. PPI - Anemia. HH stable - Hypokalemia, HTN, Hypothyroidism, COPD, Hyperlipidemia, Macular degeneration per attending. PLAN: - NPO - TPN - PPI - GS following - ID following - CXR - Incentive spirometer, Cough deep breathing, encouraged patient to get up in chair - Monitor labs - Supportive care - Further recommendations to follow based on results of above - Pt considering endoscopic placement of G/J tube, has not made decision as of yet - EGD with dilatation and possible stent placement once fistula heals - Pt seen and examined by Dr. Galaviz and myself and this note is written on his behalf (Venecia Patel) Physician Comments Patient seen and examined Agree with above Continue current supportive care Monitor labs Still considering GJ tube placement (Sal Monzon MD) Venecia Patel Dec 21, 2016 09:48 Sal Monzon MD Dec 21, 2016 18:16
--- NOTE | 2016-12-21 10:12 | HHI.PR ---
Subjective Remarks Ms. Valdovinos is a 76 year old female with a history of NSCLC, radiation esophagitis presents to the ED due to complication of the PEG tube insertion site. PEG Tube was removed recently due to large leakage. 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 now Status post EGD and clip placement. 12/20: Seen in her bedroom she has anxiety, discussed on multiple opportunities with nurse, she had some desaturation associated with anxiety, given Venlafaxine and respiratory therapy, has NG tube in place 12/21: Stable in her bedroom does not want to take Venlafaxine and wants her home medicine, her relative with her, no nausea, vomit or diarrhea continue output by Ostomy, erythema and edema and loss of continuity of skin asked by General surgery to place Paste before the ostomy bag ring and do not touch ulcerated skin. NG tube removed. Objective Vital Signs Date Time Temp Pulse Resp B/P Pulse Ox O2 Delivery O2 Flow Rate FiO2 12/21/16 09:05 94 Nasal Cannula 2.50 12/21/16 08:00 96.3 99 17 107/44 92 12/21/16 00:00 97.1 95 20 92 12/20/16 20:00 98.3 110 22 117/57 95 12/20/16 19:50 95 Nasal Cannula 2.00 12/20/16 18:00 95 12/20/16 16:00 97.5 100 18 145/65 92 12/20/16 12:00 97.3 109 17 113/56 90 I/O 12/20/16 12/20/16 12/20/16 12/21/16 12/21/16 12/21/16 06:59 14:59 22:59 06:59 14:59 22:59 Intake Total 366 ml 949 ml 1130 ml 1058 ml Output Total 690 ml 790 ml Balance -324 ml 159 ml 1130 ml 1058 ml Intake Oral 0 ml 0 ml 0 ml 0 ml IV Total 460 ml 714 ml 558 ml TPN/PPN 306 ml 408 ml 342 ml 350 ml Lipid 60 ml 81 ml 74 ml 150 ml Gastric Drainage Total 450 ml 550 ml Drainage Total 240 ml 240 ml # Voids 2 5 1 2 # Bowel Movements 0 0 0 Result Diagram: 12/19/16 1835 12/20/16 0640 Imaging Last Impressions Abdomen/Pelvis CT 12/10/16 0000 Signed Impressions: Service Date/Time: Saturday, December 10, 2016 20:17 - CONCLUSION: 1. Focal thickening of the left rectus muscle with sinus tract extending from the lumen of the stomach into the rectus, presumably at site of prior percutaneous gastrostomy. 2. Moderate-sized left pleural effusion. No evidence of ascites. 3. 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 4. Sigmoid diverticulosis without radiographic evidence of diverticulitis. Armando Harrington MD Procedures 12/17/2016 EGD with clip placement Other Results Laboratory Tests Test 12/19/16 12/20/16 18:35 06:40 White Blood Count 12.3 TH/MM3 Red Blood Count 2.89 MIL/MM3 Hemoglobin 8.4 GM/DL Hematocrit 25.2 % Mean Corpuscular Volume 87.5 FL Mean Corpuscular Hemoglobin 29.0 PG Mean Corpuscular Hemoglobin 33.1 % Concent Red Cell Distribution Width 18.5 % Platelet Count 224 TH/MM3 Mean Platelet Volume 9.1 FL Sodium Level 142 MEQ/L Potassium Level 3.3 MEQ/L Chloride Level 101 MEQ/L Carbon Dioxide Level 33.8 MEQ/L Anion Gap 7 MEQ/L Blood Urea Nitrogen 14 MG/DL Creatinine 0.35 MG/DL Estimat Glomerular Filtration 180 ML/MIN Rate Random Glucose 93 MG/DL Calcium Level 8.2 MG/DL Phosphorus Level 2.9 MG/DL Magnesium Level 1.8 MG/DL Objective Remarks GENERAL: AOx3, NAD. SKIN: Warm and dry. HEAD: Normocephalic. EYES: No scleral icterus. No injection or drainage. NECK: Supple, trachea midline. No JVD or lymphadenopathy. CARDIOVASCULAR: Regular rate and rhythm without murmurs, gallops, or rubs. RESPIRATORY: Breath sounds equal bilaterally. No accessory muscle use. Right upper chest Port in place. GASTROINTESTINAL: Abdomen soft, non-tender, nondistended. ulcerated skin around her Ostomy. MUSCULOSKELETAL: No cyanosis, or edema. BACK: Nontender without obvious deformity. No CVA tenderness. Medications and IVs Current Medications Medications (Trade) Dose Ordered Sig/Alla Route Start Time Stop Time Status Last Admin (NS Flush) 2 ml BID IV FLUSH 12/10/16 21:00 12/21/16 09:33 (Lovenox Inj) 40 mg Q24H SQ 12/10/16 22:45 12/20/16 22:59 (Elavil) 25 mg HS PO 12/11/16 21:00 12/20/16 22:01 (Synthroid) 75 mcg DAILY@07 PO 12/11/16 07:00 12/21/16 05:32 Lisinopril 10 mg 10 mg DAILY PO 12/11/16 09:00 12/21/16 09:32 Dextrose/Sodium Chloride 1,000 ml @ 84 mls/hr [id number] IV 12/11/16 10:30 12/20/16 22:59 (Liposyn Iii 20% Inj) 250 ml @ 10 mls/hr Q24H IV-CENTRAL 12/11/16 20:00 12/20/16 20:00 (Zofran Inj) 4 mg Q6HR PRN IV PUSH 12/11/16 16:15 12/21/16 05:31 Hydromorphone HCl 1 mg 1 mg Q3H PRN IV PUSH 12/12/16 14:45 12/21/16 05:35 (Mvi-12 Inj/ Folvite Inj/ Clinimix E 09/30) 2,010.2 ml @ 50 mls/hr Q24H IV 12/13/16 20:00 12/20/16 20:00 (Magic Mouthwash Pediatric/Adult Liq) 5 ml ACHS SWISH-SWAL 12/19/16 16:00 12/21/16 05:32 (Mycostatin Liq) 5 ml QID SWISH-SWAL 12/19/16 18:00 12/21/16 09:31 (Effexor) 25 mg DAILY PO 12/20/16 18:00 12/20/16 19:21 (Duragesic 50 Mcg Patch.72 Hr) 1 patch Q3D T-DERMAL 12/20/16 18:00 12/20/16 19:19 Miscellaneous Information 1 1 Q3D T-DERMAL 12/20/16 18:00 Magnesium Sulfate/ Dextrose 100 ml @ 100 mls/hr Q1H IV 12/21/16 09:45 12/21/16 11:44 (KCl 20 Meq Premix Inj) 100 ml @ 50 mls/hr Q2H IV 12/21/16 09:45 8/15/17 13:44 (Robitussin Liq) 600 mg BID PO 12/21/16 09:45 A/P Problem List: (1) 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 Currently have ostomy bag. - Due to purulent drainage, WBC 13.6, we started patient on broad spectrum Abx - Vancomycin and Zosyn IV. - GI has added IV fluconazole as well. ID was consulted. All abx discontinued on 12/13/2016 per ID. - Continue TPN. - Evaluated by home health. - Continue IV Dilaudid PRN. Continue Fentanyl patch 25mcg Q3days. - Patient underwent EGD with clip placement on 12/17/2016. EGD with Dilatation and possible stent placement once fistula heals. continue high output through Fistula. has Ulcerated skin around her ostomy and as per General Surgery Doctor Tex Sawant recommended Paste before ostomy ring and do not touch ulcerated skin with the - Radiation induced esophageal stricture - Esophageal dilatation done recently. - Patient will likely need EGD with dilatation and/or stent placement. - History of Non-small cell lung cancer - s/p chemo, radiation therapy. - Left sided pleural effusion - Etiology is not clear. Can be observed. - Currently patient is not requiring any supplemental O2. - If persistent, diagnostic thoracentesis can be considered to rule out lung cancer progression. - Electrolyte derangement replaced and following. - Hypothyroidism - continue Levothyroxine 75mcg Qday. - Hypertension - controlled. - Oral Thrush on Nystatin and Magic Mouth wash. For pain was increased Fentanyl to 50 mcg per hour every three days Full code. Lovenox. Discharge Planning Will need arrangements for TPN on discharge home with C planned. Syed Mensah MD Dec 21, 2016 10:12
[2016-12-21] MEDS: MAGNESIUM SULFATE 1 GM PREMIX 100 ML IV SCH ×2 (10:45→11:17)
[2016-12-21] MEDS: DEXT 5%-NACL 0.9% 1000 ML INJ 1,000 ML IV SCH ×2 (11:51)
--- NOTE | 2016-12-21 12:15 | RADRPT ---
EXAM DATE/TIME: 12/21/2016 10:41 [facility] COMPARISON: CT THORAX W/O CONTRAST, November 19, 2016, 13:31. CHEST SINGLE AP, November 28, 2016, 16:50. INDICATIONS : Shortness of breath. MEDICAL HISTORY : Carcinoma, lung. Chemo and radiation for lung cancer. Esophageal stricture. SURGICAL HISTORY : Lung biopsy. ENCOUNTER: Initial ACUITY: 3 days PAIN SCORE: 0/10 LOCATION: Bilateral chest FINDINGS: A right internal jugular [id number]-[id number]-[id number] has its tip at the junction of the superior vena cava and righ t atrium. There is no pneumothorax. The heart is stable. The pulmonary vascular pattern is normal. Focal patchy density is noted within the left apex which may be related to patient's known pleural b ased mass in this location. CONCLUSION: 1. Focal patchiness within the left apex consistent with probable known pleural based mass/nodular th ickening. 2. No acute focal pulmonary infiltrate or pulmonary vascular congestion. Tery Newton MD on December 21, 2016 at 11:42 Board Certified Radiologist. This report was verified electronically.
[2016-12-21] MEDS ORDERED: MAGNESIUM SULFATE 1 GM PREMIX 100 ML IV SCH (14:45)
[2016-12-21] MEDS: POTASSIUM CHLOR 20 MEQ PREMIX 100 ML IV SCH ×2 (17:24→20:32)
[2016-12-21] MEDS: MULTIVITAMIN INJ 10 ML, FOLIC ACID INJ 1 MG in AMINO ACID IN D5W W/ELECTROLYT 2,000 ML IV SCH ×3 (20:00)
[2016-12-21] MEDS: FAT EMULSION 20% INJ 250 ML (@10 mls/hr) IV-CENTRAL SCH (20:00)
[2016-12-21] MEDS: AMITRIPTYLINE HCL 25 MG TAB PO SCH (20:33)
[2016-12-21] MEDS: ENOXAPARIN SODIUM 40 MG/0.4 ML SYRINGE SQ SCH (22:45)
[2016-12-22] VITALS (10 sets, daily range): BP systolic 113–163; BP diastolic 51–70; PULSE 98–116; RESP 17–22; TEMP 96.5–97.4; O2SAT 92–94
[2016-12-22] MEDS: RESP: IPRATROPIUM 0.5 MG/2.5 ML NEB NEB SCH ×5 (03:51→20:00)
[2016-12-22] MEDS: LEVOTHYROXINE SODIUM 75 MCG TAB PO SCH (05:50)
[2016-12-22] MEDS: DIPHENHY/LIDO/MAG/ALUM MOUTHWASH (Adult/Peds) 60 ML BTL SWISH-SWAL SCH ×4 (05:51→20:42)
[2016-12-22 06:44] LABS: AUTOMATED NEUTROPHIL # 6.8 TH/MM3 (1.8-7.7); BASOPHIL # 0.1 TH/MM3 (0-0.2); BASOPHIL % 0.6 % (0.0-2.0); EOSINOPHIL # 0.2 TH/MM3 (0-0.4); EOSINOPHIL % 2.3 % (0.0-4.0); LYMPH % 13.7 % (9.0-44.0); LYMPHOCYTE # 1.2 TH/MM3 (1.0-4.8); MEAN CELL VOLUME 89.8 FL (80.0-100.0); MEAN CORPUSCULAR HEMOGLOBIN 28.9 PG (27.0-34.0); MEAN CORPUSCULAR HGB CONC 32.1 % (32.0-36.0); MONO % 8.4 % (0.0-8.0); PLATELET COUNT 204 TH/MM3 (150-450); RED CELL DISTRIBUTION WIDTH 19.5 % (11.6-17.2)
[2016-12-22 07:10] LABS: HEMO FLAGS DIFF FINAL
[2016-12-22 07:15] LABS: HEMATOCRIT 20.7 % (35.0-46.0)
[2016-12-22] MEDS: DEXT 5%-NACL 0.9% 1000 ML INJ 1,000 ML IV SCH ×2 (08:40→20:35)
[2016-12-22] MEDS ORDERED: SODIUM CHLOR 0.9% 250 ML INJ 250 ML IV ONE (08:45)
[2016-12-22] MEDS ORDERED: FUROSEMIDE 20 MG/2 ML VIAL IV ONE (08:45)
[2016-12-22] MEDS ORDERED: diphenhydrAMINE HCL 25 MG CAP PO PRN (08:45)
[2016-12-22] MEDS ORDERED: ACETAMINOPHEN 325 MG TAB PO PRN ×2 (08:45→14:00)
[2016-12-22] MEDS: LISINOPRIL 10 MG TAB PO SCH (08:58)
[2016-12-22] MEDS: NYSTATIN SUSP 500,000 U/5 ML CUP SWISH-SWAL SCH ×4 (08:58→20:41)
[2016-12-22] MEDS: guaiFENesin SOLUTION 200 MG/10 ML CUP PO SCH ×2 (09:00→20:41)
[2016-12-22] MEDS: SODIUM CHLORIDE 0.9% FLUSH 10 ML FLUSH IV FLUSH SCH ×2 (09:00→20:42)
--- NOTE | 2016-12-22 09:29 | HHI.PR ---
Subjective Remarks Ms. Valdovinos is a 76 year old female with a history of NSCLC, radiation esophagitis presents to the ED due to complication of the PEG tube insertion site. PEG Tube was removed recently due to large leakage. 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 now Status post EGD and clip placement. 12/20: Seen in her bedroom she has anxiety, discussed on multiple opportunities with nurse, she had some desaturation associated with anxiety, given Venlafaxine and respiratory therapy, has NG tube in place 12/21: Stable in her bedroom does not want to take Venlafaxine and wants her home medicine, her relative with her, no nausea, vomit or diarrhea continue output by Ostomy, erythema and edema and loss of continuity of skin asked by General surgery to place Paste before the ostomy bag ring and do not touch ulcerated skin. NG tube removed. 12/22: Seen in the presence of nurse Maria A, her Hemoglobin 6.7 the patient questioned the need for Blood transfusion when placed for her and I went to discuss wit her she wants her Primary cardiac exercise specialist Doctor Fe Montiel on the case I placed a consult for Oncology, no nausea, vomit or diarrhea, seen in the room also with case reviewer she wanted to talk about her Wound care. Objective Vital Signs Date Time Temp Pulse Resp B/P Pulse Ox O2 Delivery O2 Flow Rate FiO2 12/22/16 09:15 94 Nasal Cannula 3.00 12/22/16 08:00 97.4 115 17 124/70 93 12/22/16 00:00 96.8 116 22 113/51 92 12/21/16 20:00 98.2 101 22 96/44 92 12/21/16 16:00 96.5 104 17 96/50 94 12/21/16 15:55 97 Nasal Cannula 2.50 12/21/16 12:00 96.2 101 18 91/44 92 12/21/16 11:45 18 I/O 12/21/16 12/21/16 12/21/16 12/22/16 12/22/16 12/22/16 06:59 14:59 22:59 06:59 14:59 22:59 Intake Total 1058 ml 1360 ml 923 ml 1413 ml Output Total 125 ml 50 ml Balance 1058 ml 1235 ml 923 ml 1363 ml Intake Oral 0 ml 0 ml 0 ml 0 ml IV Total 558 ml 798 ml 574 ml 892 ml TPN/PPN 350 ml 468 ml 291 ml 434 ml Lipid 150 ml 94 ml 58 ml 87 ml Drainage Total 125 ml 50 ml # Voids 2 3 1 3 # Bowel Movements 0 0 0 0 Result Diagram: 12/22/16 0600 12/20/16 0640 Imaging Last Impressions Chest X-Ray 12/21/16 0000 Signed Impressions: Service Date/Time: Wednesday, December 21, 2016 10:41 - CONCLUSION: 1. Focal patchiness within the left apex consistent with probable known pleural based mass/nodular thickening. 2. No acute focal pulmonary infiltrate or pulmonary vascular congestion. Trey Newton MD Abdomen/Pelvis CT 12/10/16 0000 Signed Impressions: Service Date/Time: Saturday, December 10, 2016 20:17 - CONCLUSION: 1. Focal thickening of the left rectus muscle with sinus tract extending from the lumen of the stomach into the rectus, presumably at site of prior percutaneous gastrostomy. 2. Moderate-sized left pleural effusion. No evidence of ascites. 3. 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 4. Sigmoid diverticulosis without radiographic evidence of diverticulitis. Armando Harrington MD Procedures 12/17/2016 EGD with clip placement Other Results Laboratory Tests Test 12/20/16 12/22/16 06:40 06:00 Sodium Level 142 MEQ/L Potassium Level 3.3 MEQ/L Chloride Level 101 MEQ/L Carbon Dioxide Level 33.8 MEQ/L Anion Gap 7 MEQ/L Blood Urea Nitrogen 14 MG/DL Creatinine 0.35 MG/DL Estimat Glomerular Filtration 180 ML/MIN Rate Random Glucose 93 MG/DL Calcium Level 8.2 MG/DL Phosphorus Level 2.9 MG/DL Magnesium Level 1.8 MG/DL White Blood Count 9.0 TH/MM3 Red Blood Count 2.30 MIL/MM3 Hemoglobin 6.7 GM/DL Hematocrit 20.7 % Mean Corpuscular Volume 89.8 FL Mean Corpuscular Hemoglobin 28.9 PG Mean Corpuscular Hemoglobin 32.1 % Concent Red Cell Distribution Width 19.5 % Platelet Count 204 TH/MM3 Mean Platelet Volume 9.0 FL Neutrophils (%) (Auto) 75.0 % Lymphocytes (%) (Auto) 13.7 % Monocytes (%) (Auto) 8.4 % Eosinophils (%) (Auto) 2.3 % Basophils (%) (Auto) 0.6 % Neutrophils # (Auto) 6.8 TH/MM3 Lymphocytes # (Auto) 1.2 TH/MM3 Monocytes # (Auto) 0.8 TH/MM3 Eosinophils # (Auto) 0.2 TH/MM3 Basophils # (Auto) 0.1 TH/MM3 CBC Comment DIFF FINAL Differential Comment Objective Remarks GENERAL: AOx3, NAD. SKIN: Warm and dry. HEAD: Normocephalic. EYES: No scleral icterus. No injection or drainage. NECK: Supple, trachea midline. No JVD or lymphadenopathy. CARDIOVASCULAR: Regular rate and rhythm without murmurs, gallops, or rubs. RESPIRATORY: Breath sounds equal bilaterally. No accessory muscle use. Right upper chest Port in place. GASTROINTESTINAL: Abdomen soft, non-tender, nondistended. ulcerated skin around her Ostomy. MUSCULOSKELETAL: No cyanosis, or edema. BACK: Nontender without obvious deformity. No CVA tenderness. Medications and IVs Current Medications Medications (Trade) Dose Ordered Sig/Alla Route Start Time Stop Time Status Last Admin (NS Flush) 2 ml BID IV FLUSH 12/10/16 21:00 12/21/16 09:33 (Lovenox Inj) 40 mg Q24H SQ 12/10/16 22:45 12/21/16 22:45 (Elavil) 25 mg HS PO 12/11/16 21:00 12/21/16 20:33 (Synthroid) 75 mcg DAILY@07 PO 12/11/16 07:00 12/22/16 05:50 Lisinopril 10 mg 10 mg DAILY PO 12/11/16 09:00 12/22/16 08:58 Dextrose/Sodium Chloride 1,000 ml @ 84 mls/hr [id number] IV 12/11/16 10:30 12/21/16 00:00 (Liposyn Iii 20% Inj) 250 ml @ 10 mls/hr Q24H IV-CENTRAL 12/11/16 20:00 12/21/16 20:00 (Zofran Inj) 4 mg Q6HR PRN IV PUSH 12/11/16 16:15 12/21/16 17:34 Hydromorphone HCl 1 mg 1 mg Q3H PRN IV PUSH 12/12/16 14:45 12/21/16 20:46 (Mvi-12 Inj/ Folvite Inj/ Clinimix E 09/30) 2,010.2 ml @ 50 mls/hr Q24H IV 12/13/16 20:00 12/21/16 20:00 (Magic Mouthwash Pediatric/Adult Liq) 5 ml ACHS SWISH-SWAL 12/19/16 16:00 12/22/16 05:51 (Mycostatin Liq) 5 ml QID SWISH-SWAL 12/19/16 18:00 12/22/16 08:58 (Duragesic 50 Mcg Patch.72 Hr) 1 patch Q3D T-DERMAL 12/20/16 18:00 12/20/16 19:19 Miscellaneous Information 1 Q3D T-DERMAL 12/20/16 18:00 12/20/16 19:19 Guaifenesin 600 mg 600 mg BID PO 12/21/16 09:45 12/21/16 20:36 (NS 250 ml Inj) 250 ml @ 15 mls/hr ONCE ONCE IV 12/22/16 08:45 12/23/16 01:24 (Tylenol) 650 mg Q4H PRN PO 12/22/16 08:45 12/22/16 12:46 (Benadryl) 25 mg Q4H PRN PO 12/22/16 08:45 12/22/16 12:46 A/P Problem List: (1) 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 Currently have ostomy bag. - Due to purulent drainage, WBC 13.6, we started patient on broad spectrum Abx - Vancomycin and Zosyn IV. - GI has added IV fluconazole as well. ID was consulted. All abx discontinued on 12/13/2016 per ID. - Continue TPN. - Evaluated by home health. - Continue IV Dilaudid PRN. Continue Fentanyl patch 25mcg Q3days. - Patient underwent EGD with clip placement on 12/17/2016. EGD with Dilatation and possible stent placement once fistula heals. continue high output through Fistula. has Ulcerated skin around her ostomy and as per General Surgery Doctor Tex Sawant recommended Paste before ostomy ring and do not touch ulcerated skin with the - Radiation induced esophageal stricture - Esophageal dilatation done recently. - Patient will likely need EGD with dilatation and/or stent placement. - History of Non-small cell lung cancer - s/p chemo, radiation therapy. - Left sided pleural effusion - Etiology is not clear. Can be observed. - Currently patient is not requiring any supplemental O2. - If persistent, diagnostic thoracentesis can be considered to rule out lung cancer progression. - Electrolyte derangement replaced and following. - Hypothyroidism - continue Levothyroxine 75mcg Qday. - Hypertension - controlled. - Oral Thrush on Nystatin and Magic Mouth wash. -Anemia worsening today Hemoglobin 6.7 asked for blood transfusion of two units of PRBCs she asked for her Primary cardiac exercise specialist Doctor Fe Montiel and was consulted For pain was increased Fentanyl to 50 mcg per hour every three days Full code. Lovenox. Discharge Planning Will need arrangements for TPN on discharge home with C planned. Syed Mensah MD Dec 22, 2016 09:29
[2016-12-22] MEDS: HYDROmorphone HCL PF 1 MG/ML VIAL IV PUSH PRN ×2 (10:38→20:40)
--- NOTE | 2016-12-22 11:06 | PD.WCN.NOT ---
Wound Consult Description: Asked by nursing staff to assess burning fistula site with new appliance just placed. Communicated with: NARCISO Saha Recommendation: Continue to empty drainage pouch when 1/3 full and change as needed. Additional Information: Patient seen on for appliance change due to burning sensation on the skin and patient requesting that the appliance be changed to keep drainage off periwound. Appliance removed to reveal a fistula noted to left abdomen with full thickness skinloss noted to periwound. Skin was cleansed and prepped with Cavilon skin prep prior to placing jevon seal around fistula. Once the jevon seal was warmed and adherent to skin, the barrier was placed over the site with the drainage bag attached for fluid collection. Patient states that the appliance feels much better now. Mariama Ramon [facility] Dec 22, 2016 11:06
[2016-12-22 13:04] LABS: BICARBONATE 29.6 MEQ/L (21.0-32.0); MAGNESIUM 2.2 MG/DL (1.5-2.5)
[2016-12-22 13:20] LABS: CALCIUM-PROTEIN CORRECTED 8.2 MG/DL (8.5-10.1)
[2016-12-22] MEDS: diphenhydrAMINE HCL 25 MG CAP PO PRN ×2 (13:59→17:18)
[2016-12-22] MEDS: ONDANSETRON HCL 4 MG/2 ML VIAL IV PUSH PRN (14:00)
--- NOTE | 2016-12-22 15:00 | HHI.GIFU ---
Subjective Remarks Pt resting in bed, c/o that the ostomy bag over her old g tube site is leaking. (Ai Tim) Objective Vitals I&O Vital Signs Date Time Temp Pulse Resp B/P Pulse Ox O2 Delivery O2 Flow Rate FiO2 12/22/16 13:40 97.1 98 18 126/61 12/22/16 13:28 96.9 101 20 138/63 12/22/16 12:00 96.9 101 18 138/63 94 12/22/16 09:15 94 Nasal Cannula 3.00 12/22/16 08:00 97.4 115 17 124/70 93 12/22/16 00:00 96.8 116 22 113/51 92 12/21/16 20:00 98.2 101 22 96/44 92 12/21/16 16:00 96.5 104 17 96/50 94 12/21/16 15:55 97 Nasal Cannula 2.50 I/O 12/21/16 12/21/16 12/21/16 12/22/16 12/22/16 12/22/16 07:00 15:00 23:00 07:00 15:00 23:00 Intake Total 1058 ml 1360 ml 923 ml 1413 ml Output Total 125 ml 50 ml Balance 1058 ml 1235 ml 923 ml 1363 ml Intake Oral 0 ml 0 ml 0 ml 0 ml IV Total 558 ml 798 ml 574 ml 892 ml TPN/PPN 350 ml 468 ml 291 ml 434 ml Lipid 150 ml 94 ml 58 ml 87 ml Drainage Total 125 ml 50 ml # Voids 2 3 1 3 # Bowel Movements 0 0 0 0 Laboratory Laboratory Tests Test 12/22/16 12/22/16 12/22/16 06:00 11:22 12:05 White Blood Count 9.0 Red Blood Count 2.30 Hemoglobin 6.7 Hematocrit 20.7 Mean Corpuscular Volume 89.8 Mean Corpuscular Hemoglobin 28.9 Mean Corpuscular Hemoglobin 32.1 Concent Red Cell Distribution Width 19.5 Platelet Count 204 Mean Platelet Volume 9.0 Neutrophils (%) (Auto) 75.0 Lymphocytes (%) (Auto) 13.7 Monocytes (%) (Auto) 8.4 Eosinophils (%) (Auto) 2.3 Basophils (%) (Auto) 0.6 Neutrophils # (Auto) 6.8 Lymphocytes # (Auto) 1.2 Monocytes # (Auto) 0.8 Eosinophils # (Auto) 0.2 Basophils # (Auto) 0.1 CBC Comment DIFF FINAL Differential Comment Blood Type B NEGATIVE Antibody Screen NEGATIVE Crossmatch Leukocyte-Reduced Red Blood Cells Blood Bank Comment Sodium Level 139 Potassium Level 4.0 Chloride Level 106 Carbon Dioxide Level 29.6 Anion Gap 3 Blood Urea Nitrogen 21 Creatinine 0.38 Estimat Glomerular Filtration 164 Rate Random Glucose 152 Calcium Level 7.4 Protein Corrected Calcium 8.2 Phosphorus Level 2.4 Magnesium Level 2.2 Total Protein 5.7 Imaging Last Impressions Chest X-Ray 12/21/16 0000 Signed Impressions: Service Date/Time: Wednesday, December 21, 2016 10:41 - CONCLUSION: 1. Focal patchiness within the left apex consistent with probable known pleural based mass/nodular thickening. 2. No acute focal pulmonary infiltrate or pulmonary vascular congestion. Trey Newton MD Abdomen/Pelvis CT 12/10/16 0000 Signed Impressions: Service Date/Time: Saturday, December 10, 2016 20:17 - CONCLUSION: 1. Focal thickening of the left rectus muscle with sinus tract extending from the lumen of the stomach into the rectus, presumably at site of prior percutaneous gastrostomy. 2. Moderate-sized left pleural effusion. No evidence of ascites. 3. 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 4. Sigmoid diverticulosis without radiographic evidence of diverticulitis. Armando Harrington MD Physical Exam HEENT: Normocephalic; atraumatic CHEST: Resp shallow/even. O2 2.5L via n/c, o2 sat 94% CARDIAC: RRR. ABDOMEN: Soft, nondistended, mild tenderness; no hepatosplenomegaly; bowel sounds are present in all four quadrants. Collection bag to the site of old PEG tubes site, leaking. EXTREMITIES: No clubbing, cyanosis, or edema. SKIN: Normal; no rash; no jaundice. GUN BARREL FINISHER: No focal deficits; alert and oriented times three. 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 Pt came to office on 12/08 for peg tube site pain and drainage. The tube was noted to be dislodged and was completely removed. The incision was packed and she was given Augmentin suspension. She reports that since the tube was removed, it has been draining copious amounts of purulent She was seen in office today (12/10/16) with significant leakage from the peg tube site, with moderate erythema noted surrounding the site. She was sent to the hospital for IV antibiotics, TPN, and possible I&D. She denies fevers/chills. Abdomen/Pelvis CT (12/10/16)----> 1. Focal thickening of the left rectus muscle with sinus tract extending from the lumen of the stomach into the rectus, presumably at site of prior percutaneous gastrostomy. 2. Moderate-sized left pleural effusion. No evidence of ascites. 3. 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 4. Sigmoid diverticulosis without radiographic evidence of diverticulitis. Fistula site with drainage bag with large amount of dark drainage. NPO. TPN. Wound culture with lactobacillus species. Fluid with no growth x 48 hours. Site itself much improved- not red or indurated. S/P EGD with clip placement (12/17/16)----> Mid-esophageal radiation esophagitis with stricturing but I was able to pass the scope with ease, stomach there was a large opening and on the anterior wall of the stomach that connects to the skin and I cauterized the track with silver nitrate and I applied 4 clips on the inside at the opening of the fistula in hopes to reduce the amount of gastric juice flow and an NG tube was placed so that we can suction gastric contents. The duodenum was normal. The NGT was removed. Her gastric drainage is decreasing from the fistula. Pt is still considering possible endoscopic placement of G/J tube- has not made a decision today. - Cough/Hypoxia. Pt had decreased sat's and was placed on O2 2.5L via n/c overnight. They are now 95%. She has course breath sounds and cough. - Leukocytosis secondary to above. WBC went to 12.3. 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 S/P multiple dilatations. She reports that there was some talk of a stent at one point, but that this was not able to be done secondary to the stricture being so tight. EGD with PEG tube placement (11/29/16)----> mid esophageal stricture with inflammation consistent with recurring radiation esophagitis, s/p dilation with 12, 14, normal stomach, normal duodenum, s/p peg tube placement. She was evaluated by the hose operator at that time and they had recommended Jevity 1.5 bolus feedings 240 mls at 8am, 11am, 2pm, 5pm, 8pm with 60ml flushes before feeding and 120cc flushes after feeding. Plan will be for EGD with dilatation, possible stent placement once tract heals. 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 S/P chemotherapy and radiotherapy, completed on 09/01/16. PET scan scheduled as outpatient. - GERD. PPI - Anemia. HH stable - Hypokalemia, HTN, Hypothyroidism, COPD, Hyperlipidemia, Macular degeneration per attending. PLAN: - UGI series with gastrografin - NPO - TPN - PPI - GS following - ID following - Monitor labs - Supportive care - Further recommendations to follow based on results of above - EGD with dilatation and possible stent placement once fistula heals - Pt seen and examined by Dr. Galaviz and myself and this note is written on his behalf (Ai Tim) Physician Comments Patient seen and examined Agree with above Continue with current supportive care Monitor labs Hopefully the fistula has sealed up because what I'm seeing in the colostomy bag is clear rash and does not resemble gastric juices (Sal Monzon MD) Ai Tim Dec 22, 2016 15:00 Sal Monzon MD Dec 22, 2016 18:35
[2016-12-22] MEDS: FAT EMULSION 20% INJ 250 ML (@10 mls/hr) IV-CENTRAL SCH (20:00)
[2016-12-22] MEDS: MULTIVITAMIN INJ 10 ML, FOLIC ACID INJ 1 MG in AMINO ACID IN D5W W/ELECTROLYT 2,000 ML IV SCH ×3 (20:00)
[2016-12-22] MEDS: AMITRIPTYLINE HCL 25 MG TAB PO SCH (20:39)
[2016-12-22] MEDS: ENOXAPARIN SODIUM 40 MG/0.4 ML SYRINGE SQ SCH (23:00)
[2016-12-23] VITALS: BP 159/73; PULSE 114; RESP 21; TEMP 96; O2SAT 97
--- NOTE | 2016-12-23 00:11 | PD.ONC.PN ---
Objective Data Date Time Temp Pulse Resp B/P Pulse Ox O2 Delivery O2 Flow Rate FiO2 12/22/16 20:01 94 Nasal Cannula 3.00 12/22/16 20:00 96.5 102 20 163/70 93 12/22/16 17:12 97.1 100 18 140/65 12/22/16 16:50 97.1 103 18 135/65 12/22/16 13:40 97.1 98 18 126/61 12/22/16 13:28 96.9 101 20 138/63 12/22/16 12:00 96.9 101 18 138/63 94 12/22/16 09:15 94 Nasal Cannula 3.00 12/22/16 08:00 97.4 115 17 124/70 93 Result Diagram: 12/22/16 0600 12/22/16 1205 Laboratory Results Laboratory Tests Test 12/22/16 12/22/16 12/22/16 06:00 11:22 12:05 White Blood Count 9.0 TH/MM3 Red Blood Count 2.30 MIL/MM3 Hemoglobin 6.7 GM/DL Hematocrit 20.7 % Mean Corpuscular Volume 89.8 FL Mean Corpuscular Hemoglobin 28.9 PG Mean Corpuscular Hemoglobin 32.1 % Concent Red Cell Distribution Width 19.5 % Platelet Count 204 TH/MM3 Mean Platelet Volume 9.0 FL Neutrophils (%) (Auto) 75.0 % Lymphocytes (%) (Auto) 13.7 % Monocytes (%) (Auto) 8.4 % Eosinophils (%) (Auto) 2.3 % Basophils (%) (Auto) 0.6 % Neutrophils # (Auto) 6.8 TH/MM3 Lymphocytes # (Auto) 1.2 TH/MM3 Monocytes # (Auto) 0.8 TH/MM3 Eosinophils # (Auto) 0.2 TH/MM3 Basophils # (Auto) 0.1 TH/MM3 CBC Comment DIFF FINAL Differential Comment Blood Type B NEGATIVE Antibody Screen NEGATIVE Crossmatch Leukocyte-Reduced Red Blood Cells Blood Bank Comment Sodium Level 139 MEQ/L Potassium Level 4.0 MEQ/L Chloride Level 106 MEQ/L Carbon Dioxide Level 29.6 MEQ/L Anion Gap 3 MEQ/L Blood Urea Nitrogen 21 MG/DL Creatinine 0.38 MG/DL Estimat Glomerular Filtration 164 ML/MIN Rate Random Glucose 152 MG/DL Calcium Level 7.4 MG/DL Protein Corrected Calcium 8.2 MG/DL Phosphorus Level 2.4 MG/DL Magnesium Level 2.2 MG/DL Total Protein 5.7 GM/DL Administered Medications Medications (Trade) Dose Ordered Sig/Alla Route PRN Reason Start Time Stop Time Status Last Admin Dose Admin Sodium Chloride (NS Flush) 2 ml BID IV FLUSH 12/10/16 21:00 12/21/16 09:33 Enoxaparin Sodium (Lovenox Inj) 40 mg Q24H SQ 12/10/16 22:45 12/21/16 22:45 Amitriptyline HCl (Elavil) 25 mg HS PO 12/11/16 21:00 12/22/16 20:39 Levothyroxine Sodium (Synthroid) 75 mcg DAILY@07 PO 12/11/16 07:00 12/22/16 05:50 Lisinopril 10 mg 10 mg DAILY PO 12/11/16 09:00 12/22/16 08:58 Dextrose/Sodium Chloride 1,000 ml @ 84 mls/hr [id number] IV 12/11/16 10:30 12/21/16 00:00 Fat Emulsion Intravenous (Liposyn Iii 20% Inj) 250 ml @ 10 mls/hr Q24H IV-CENTRAL 12/11/16 20:00 12/22/16 20:00 Ondansetron HCl (Zofran Inj) 4 mg Q6HR PRN IV PUSH N/V 12/11/16 16:15 12/22/16 14:00 Hydromorphone HCl 1 mg 1 mg Q3H PRN IV PUSH PAIN SCALE 5 TO 10 12/12/16 14:45 12/22/16 20:40 Multivitamins/ Folic Acid/Amino Acids/ Electrolytes/ Dextrose (Mvi-12 Inj/ Folvite Inj/ Clinimix E 09/30) 2,010.2 ml @ 50 mls/hr Q24H IV 12/13/16 20:00 12/22/16 20:00 Lidocaine/ Diphenhydr/Alum/ Mg/Simeth (Magic Mouthwash Pediatric/Adult Liq) 5 ml ACHS SWISH-SWAL 12/19/16 16:00 12/22/16 20:42 Nystatin (Mycostatin Liq) 5 ml QID SWISH-SWAL 12/19/16 18:00 12/22/16 20:41 Fentanyl (Duragesic 50 Mcg Patch.72 Hr) 1 patch Q3D T-DERMAL 12/20/16 18:00 12/20/16 19:19 Miscellaneous Information 1 Q3D T-DERMAL 12/20/16 18:00 12/20/16 19:19 Guaifenesin 600 mg 600 mg BID PO 12/21/16 09:45 12/22/16 20:41 Sodium Chloride (NS 250 ml Inj) 250 ml @ 15 mls/hr ONCE ONCE IV 12/22/16 08:45 12/23/16 01:24 12/22/16 13:17 Objective Remarks GENERAL: SKIN: Warm and dry. LYMPHATIC: No adenopathy. CARDIOVASCULAR: Regular rate and rhythm without murmurs. RESPIRATORY: Breath sounds equal bilaterally. No accessory muscle use. GASTROINTESTINAL: Abdomen soft, non-tender, nondistended. EXTREMITIES: No cyanosis, or edema. MUSCULOSKELETAL: Adequate muscle tone. NEUROLOGICAL: No obvious focal deficit. Awake, alert, and oriented x3. PSYCHIATRIC: Appropriate mood and affect; insight and judgment normal. Montrell Montiel MD Dec 23, 2016 00:11
[2016-12-23] MEDS: ONDANSETRON HCL 4 MG/2 ML VIAL IV PUSH PRN ×4 (01:35→21:59)
[2016-12-23] MEDS: RESP: IPRATROPIUM 0.5 MG/2.5 ML NEB NEB SCH ×6 (01:40→20:00)
[2016-12-23] MEDS: LEVOTHYROXINE SODIUM 75 MCG TAB PO SCH (06:48)
[2016-12-23] MEDS: DIPHENHY/LIDO/MAG/ALUM MOUTHWASH (Adult/Peds) 60 ML BTL SWISH-SWAL SCH ×4 (06:49→21:49)
[2016-12-23 07:39] LABS: PROTHROMBIN TIME - PATIENT 11.1 SEC (9.8-11.6)
[2016-12-23 07:51] VITALS: O2SAT 98
[2016-12-23 07:53] LABS: LDH SERUM 133 U/L (84-246); TRANSFERRIN IRON PROFILE 134 MG/DL (200-360)
[2016-12-23 08:00] VITALS: BP 148/77; PULSE 99; RESP 16; TEMP 97.2; O2SAT 97
[2016-12-23 08:17] LABS: FERRITIN 70 NG/ML (8-252); INDIRECT BILIRUBIN 0.3 MG/DL (0.0-0.8); TOTAL BILIRUBIN ADULT 0.4 MG/DL (0.2-1.0)
[2016-12-23] MEDS: guaiFENesin SOLUTION 200 MG/10 ML CUP PO SCH ×2 (08:17→21:48)
[2016-12-23] MEDS: NYSTATIN SUSP 500,000 U/5 ML CUP SWISH-SWAL SCH ×4 (08:17→21:47)
[2016-12-23] MEDS: LISINOPRIL 10 MG TAB PO SCH (08:17)
--- NOTE | 2016-12-23 08:17 | HHI.PR ---
Subjective Remarks Ms. Valdovinos is a 76 year old female with a history of NSCLC, radiation esophagitis presents to the ED due to complication of the PEG tube insertion site. PEG Tube was removed recently due to large leakage. 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 now Status post EGD and clip placement. 12/20: Seen in her bedroom she has anxiety, discussed on multiple opportunities with nurse, she had some desaturation associated with anxiety, given Venlafaxine and respiratory therapy, has NG tube in place 12/21: Stable in her bedroom does not want to take Venlafaxine and wants her home medicine, her relative with her, no nausea, vomit or diarrhea continue output by Ostomy, erythema and edema and loss of continuity of skin asked by General surgery to place Paste before the ostomy bag ring and do not touch ulcerated skin. NG tube removed. 12/22: Seen in the presence of nurse Miss Saha, her Hemoglobin 6.7 the patient questioned the need for Blood transfusion when placed for her and I went to discuss wit her she wants her Primary posting specialist Doctor Fe Montiel on the case I placed a consult for Oncology. 12/23: Patient without complaint today no complaint discussed with nurse Miss Garcia she wants to be started on her medicine Tranxene 3.75 mg TID at this time as per GI specialist recommended to continue NPO, Upper GI series with gastrografin she is going for this test. No nausea, vomit or diarrhea Objective Vital Signs Date Time Temp Pulse Resp B/P Pulse Ox O2 Delivery O2 Flow Rate FiO2 12/23/16 07:51 98 Nasal Cannula 3.00 12/23/16 00:00 96.0 114 21 159/73 97 12/22/16 20:01 94 Nasal Cannula 3.00 12/22/16 20:00 96.5 102 20 163/70 93 12/22/16 17:12 97.1 100 18 140/65 12/22/16 16:50 97.1 103 18 135/65 12/22/16 13:40 97.1 98 18 126/61 12/22/16 13:28 96.9 101 20 138/63 12/22/16 12:00 96.9 101 18 138/63 94 12/22/16 09:15 94 Nasal Cannula 3.00 I/O 12/22/16 12/22/16 12/22/16 12/23/16 12/23/16 12/23/16 06:59 14:59 22:59 06:59 14:59 22:59 Intake Total 1413 ml 1150 ml 1675 ml 1330 ml Output Total 50 ml 450 ml 125 ml Balance 1363 ml 700 ml 1550 ml 1330 ml Intake Oral 0 ml 0 ml 0 ml 120 ml IV Total 892 ml 670 ml 515 ml 623 ml TPN/PPN 434 ml 400 ml 310 ml 498 ml Lipid 87 ml 80 ml 50 ml 89 ml Packed Cells 800 ml Output Urine Total 400 ml Drainage Total 50 ml 50 ml 125 ml # Voids 3 2 3 # Bowel Movements 0 0 0 0 Result Diagram: 12/22/16 0600 12/22/16 1205 Imaging Last Impressions Chest X-Ray 12/21/16 0000 Signed Impressions: Service Date/Time: Wednesday, December 21, 2016 10:41 - CONCLUSION: 1. Focal patchiness within the left apex consistent with probable known pleural based mass/nodular thickening. 2. No acute focal pulmonary infiltrate or pulmonary vascular congestion. Trey Newton MD Abdomen/Pelvis CT 12/10/16 0000 Signed Impressions: Service Date/Time: Saturday, December 10, 2016 20:17 - CONCLUSION: 1. Focal thickening of the left rectus muscle with sinus tract extending from the lumen of the stomach into the rectus, presumably at site of prior percutaneous gastrostomy. 2. Moderate-sized left pleural effusion. No evidence of ascites. 3. 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 4. Sigmoid diverticulosis without radiographic evidence of diverticulitis. Armando Harrington MD Procedures 12/17/2016 EGD with clip placement Other Results Laboratory Tests Test 12/22/16 12/22/16 12/22/16 12/23/16 06:00 11:22 12:05 07:00 White Blood Count 9.0 TH/MM3 Red Blood Count 2.30 MIL/MM3 Hemoglobin 6.7 GM/DL Hematocrit 20.7 % Mean Corpuscular Volume 89.8 FL Mean Corpuscular Hemoglobin 28.9 PG Mean Corpuscular Hemoglobin 32.1 % Concent Red Cell Distribution Width 19.5 % Platelet Count 204 TH/MM3 Mean Platelet Volume 9.0 FL Neutrophils (%) (Auto) 75.0 % Lymphocytes (%) (Auto) 13.7 % Monocytes (%) (Auto) 8.4 % Eosinophils (%) (Auto) 2.3 % Basophils (%) (Auto) 0.6 % Neutrophils # (Auto) 6.8 TH/MM3 Lymphocytes # (Auto) 1.2 TH/MM3 Monocytes # (Auto) 0.8 TH/MM3 Eosinophils # (Auto) 0.2 TH/MM3 Basophils # (Auto) 0.1 TH/MM3 CBC Comment DIFF FINAL Differential Comment Antibody Screen NEGATIVE Crossmatch Leukocyte-Reduced Red Blood Cells Blood Bank Comment Sodium Level 139 MEQ/L Potassium Level 4.0 MEQ/L Chloride Level 106 MEQ/L Carbon Dioxide Level 29.6 MEQ/L Anion Gap 3 MEQ/L Blood Urea Nitrogen 21 MG/DL Creatinine 0.38 MG/DL Estimat Glomerular Filtration 164 ML/MIN Rate Random Glucose 152 MG/DL Calcium Level 7.4 MG/DL Protein Corrected Calcium 8.2 MG/DL Phosphorus Level 2.4 MG/DL Magnesium Level 2.2 MG/DL Total Protein 5.7 GM/DL Prothrombin Time 11.1 SEC Prothromb Time International 1.0 RATIO Ratio Iron Level 31 MCG/DL Total Iron Binding Capacity 188 MCG/DL Percent Iron Saturation 16.5 % Direct Bilirubin 0.1 MG/DL Lactate Dehydrogenase 133 U/L Blood Type B NEGATIVE Direct Antiglobulin Test NEGATIVE ([place]) Objective Remarks GENERAL: AOx3, NAD. SKIN: Warm and dry. HEAD: Normocephalic. EYES: No scleral icterus. No injection or drainage. NECK: Supple, trachea midline. No JVD or lymphadenopathy. CARDIOVASCULAR: Regular rate and rhythm without murmurs, gallops, or rubs. RESPIRATORY: Breath sounds equal bilaterally. No accessory muscle use. Right upper chest Port in place. GASTROINTESTINAL: Abdomen soft, non-tender, nondistended. ulcerated skin around her Ostomy. MUSCULOSKELETAL: No cyanosis, or edema. BACK: Nontender without obvious deformity. No CVA tenderness. Medications and IVs Current Medications Medications (Trade) Dose Ordered Sig/Alla Route Start Time Stop Time Status Last Admin (NS Flush) 2 ml BID IV FLUSH 12/10/16 21:00 12/21/16 09:33 (Lovenox Inj) 40 mg Q24H SQ 12/10/16 22:45 8/16/17 23:00 (Elavil) 25 mg HS PO 12/11/16 21:00 12/22/16 20:39 (Synthroid) 75 mcg DAILY@07 PO 12/11/16 07:00 12/23/16 06:48 Lisinopril 10 mg 10 mg DAILY PO 12/11/16 09:00 12/22/16 08:58 Dextrose/Sodium Chloride 1,000 ml @ 84 mls/hr [id number] IV 12/11/16 10:30 12/22/16 20:35 (Liposyn Iii 20% Inj) 250 ml @ 10 mls/hr Q24H IV-CENTRAL 12/11/16 20:00 12/22/16 20:00 (Zofran Inj) 4 mg Q6HR PRN IV PUSH 12/11/16 16:15 12/23/16 01:35 Hydromorphone HCl 1 mg 1 mg Q3H PRN IV PUSH 12/12/16 14:45 12/22/16 20:40 (Mvi-12 Inj/ Folvite Inj/ Clinimix E 09/30) 2,010.2 ml @ 50 mls/hr Q24H IV 12/13/16 20:00 12/22/16 20:00 (Magic Mouthwash Pediatric/Adult Liq) 5 ml ACHS SWISH-SWAL 12/19/16 16:00 12/23/16 06:49 (Mycostatin Liq) 5 ml QID SWISH-SWAL 12/19/16 18:00 12/22/16 20:41 (Duragesic 50 Mcg Patch.72 Hr) 1 patch Q3D T-DERMAL 12/20/16 18:00 12/20/16 19:19 Miscellaneous Information 1 Q3D T-DERMAL 12/20/16 18:00 12/20/16 19:19 (Robitussin Liq) 600 mg BID PO 12/21/16 09:45 12/22/16 20:41 A/P Problem List: (1) 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 Currently have ostomy bag. - Due to purulent drainage, WBC 13.6, we started patient on broad spectrum Abx - Vancomycin and Zosyn IV. - GI has added IV fluconazole as well. ID was consulted. All abx discontinued on 12/13/2016 per ID. - Continue TPN. - Evaluated by home health. - Continue IV Dilaudid PRN. Continue Fentanyl patch 25mcg Q3days. - Patient underwent EGD with clip placement on 12/17/2016. EGD with Dilatation and possible stent placement once fistula heals. continue high output through Fistula. has Ulcerated skin around her ostomy and as per General Surgery Doctor Tex Sawant recommended Paste before ostomy ring and do not touch ulcerated skin with the ring. asked by GI for Upper GI series with Gastrografin. - Radiation induced esophageal stricture - Esophageal dilatation done recently. - Patient will likely need EGD with dilatation and/or stent placement. - History of Non-small cell lung cancer - s/p chemo, radiation therapy. - Left sided pleural effusion - Etiology is not clear. Can be observed. - Currently patient is not requiring any supplemental O2. - If persistent, diagnostic thoracentesis can be considered to rule out lung cancer progression. - Electrolyte derangement replaced and following. - Hypothyroidism - continue Levothyroxine 75mcg Qday. - Hypertension - controlled. - Oral Thrush on Nystatin and Magic Mouth wash. -Anxiety to start her home medicine Tranxene 3.75 mg TID pharmacy information placed. -Anemia worsening today Hemoglobin 6.7 asked for blood transfusion of two units of PRBCs she asked for her Primary posting specialist Montrell Montiel already seen by specialist not yet note in EMR. For pain was increased Fentanyl to 50 mcg per hour every three days Full code. Lovenox. Discharge Planning Will need arrangements for TPN on discharge home with C planned. Syed Mensah MD Dec 23, 2016 08:17
[2016-12-23] MEDS: DEXT 5%-NACL 0.9% 1000 ML INJ 1,000 ML IV SCH ×2 (08:18→21:59)
[2016-12-23] MEDS: SODIUM CHLORIDE 0.9% FLUSH 10 ML FLUSH IV FLUSH SCH ×2 (08:20→21:00)
[2016-12-23] MEDS ORDERED: DIATRIZOATE MEGLUM/DIATRIZOATE SOD 120 ML BTL (for RAD DIAG) PO ONE (09:45)
--- NOTE | 2016-12-23 10:23 | RADRPT ---
EXAM DATE/TIME: 12/23/2016 09:22 [facility] COMPARISON: No previous studies available for comparison. INDICATIONS : Abdominal pain, evaluate for ulcer and fistula post PEG tube removal FLUORO TIME: 1.6 minutes IMAGE COUNT: 18 CONTRAST: 1. MD Leyva MEDICAL HISTORY : Carcinoma, lung. esophageal strictures, fistula, mediatinum lymph nodes SURGICAL HISTORY : PEG tube, Clips placed on fistula ENCOUNTER: Subsequent ACUITY: 4 - 6 days PAIN SCORE: 4/10 LOCATION: Bilateral abdomen FINDINGS: The [place] highway inspector film demonstrates an ostomy in the left upper abdomen. The bowel gas pattern is unremark able. Examination of the swallowing function demonstrates no evidence of aspiration. Visualization of the e sophagus was limited secondary to the Gastrografin technique and the patient taking small swallows. N o reflux or hiatal hernia is identified. There is a small diverticulum along the distal esophagus. Examination of the stomach demonstrates no evidence of intraluminal mass or extrinsic compression. T he gastric volume appears normal and there is no evidence of fistula. The mucosal pattern appears unr emarkable on this Gastrografin study. The duodenal bulb and duodenal sweep appear normal. The visual ized small bowel is unremarkable. CONCLUSION: 1. No evidence of fistula or obstruction. 2. Small diverticulum along the distal esophagus. Louie Conrad MD on December 23, 2016 at 10:16 Board Certified Radiologist. This report was verified electronically.
--- NOTE | 2016-12-23 10:39 | HHI.PR ---
Subjective Subjective Notes Getting ready to go to radiology for Gastrografin study Objective Vitals/I&O Vital Signs Date Time Temp Pulse Resp B/P Pulse Ox O2 Delivery O2 Flow Rate FiO2 12/23/16 08:00 97.2 99 16 148/77 97 12/23/16 07:51 Nasal Cannula 3.00 Labs Laboratory Tests Test 12/22/16 12/22/16 12/23/16 11:22 12:05 07:00 Blood Type B NEGATIVE B NEGATIVE Antibody Screen NEGATIVE Crossmatch Leukocyte-Reduced Red Blood Cells Blood Bank Comment Sodium Level 139 Potassium Level 4.0 Chloride Level 106 Carbon Dioxide Level 29.6 Anion Gap 3 Blood Urea Nitrogen 21 Creatinine 0.38 Estimat Glomerular Filtration 164 Rate Random Glucose 152 Calcium Level 7.4 Protein Corrected Calcium 8.2 Phosphorus Level 2.4 Magnesium Level 2.2 Total Protein 5.7 Prothrombin Time 11.1 Prothromb Time International 1.0 Ratio Iron Level 31 Total Iron Binding Capacity 188 Percent Iron Saturation 16.5 Ferritin 70 Total Bilirubin 0.4 Direct Bilirubin 0.1 Indirect Bilirubin 0.3 Lactate Dehydrogenase 133 Vitamin B12 Level 692 Direct Antiglobulin Test NEGATIVE ([place]) Cardiovascular: Regular Lungs: Clear Abdomen: Other (prior PEG site with wound materials management manager in place; minimal dark gastric drainage ) Extremities: No edema A/P Assessment and Plan 76 year old female with PMhx significant for non-small cell carcinoma of the lung status post chemotherapy and radiation; esophageal strictures; PEG tube malfunction--- currently with patent fistula tract -s/p EGD with clip placement -NGT out -Continue ostomy wound back to fistula for drainage collection; minimal drainage -Continue TPN -Out of bed as tolerated -Pain control -No surgical plans at this time -Will follow up on Gastrografin study Attending Statement patient seen at bedside some improvement in output await contrast study Attestation The exam, history, and the medical decision-making described in the above note were completed with the assistance of the mid-level provider. I reviewed and agree with the findings presented. I attest that I had a [id number] encounter with the patient on the same day, and personally performed and documented my assessment and findings in the medical record. Patti Rey Dec 23, 2016 10:39 Jese Nice MD Dec 25, 2016 07:28
--- NOTE | 2016-12-23 11:52 | HHI.GIFU ---
Subjective Remarks Resting in bed. Recently returned to room from having upper GI series. No n/ v. Decreasing drainage noted in bag. + BM. No obvious active bleeding (Venecia Patel) Objective Vitals I&O Vital Signs Date Time Temp Pulse Resp B/P Pulse Ox O2 Delivery O2 Flow Rate FiO2 12/23/16 08:00 97.2 99 16 148/77 97 12/23/16 07:51 98 Nasal Cannula 3.00 12/23/16 00:00 96.0 114 21 159/73 97 12/22/16 20:01 94 Nasal Cannula 3.00 12/22/16 20:00 96.5 102 20 163/70 93 12/22/16 17:12 97.1 100 18 140/65 12/22/16 16:50 97.1 103 18 135/65 12/22/16 13:40 97.1 98 18 126/61 12/22/16 13:28 96.9 101 20 138/63 12/22/16 12:00 96.9 101 18 138/63 94 I/O 12/22/16 12/22/16 12/22/16 12/23/16 12/23/16 12/23/16 06:59 14:59 22:59 06:59 14:59 22:59 Intake Total 1413 ml 1150 ml 1675 ml 1330 ml Output Total 50 ml 450 ml 125 ml Balance 1363 ml 700 ml 1550 ml 1330 ml Intake Oral 0 ml 0 ml 0 ml 120 ml IV Total 892 ml 670 ml 515 ml 623 ml TPN/PPN 434 ml 400 ml 310 ml 498 ml Lipid 87 ml 80 ml 50 ml 89 ml Packed Cells 800 ml Output Urine Total 400 ml Drainage Total 50 ml 50 ml 125 ml # Voids 3 2 3 # Bowel Movements 0 0 0 0 Laboratory Laboratory Tests Test 12/22/16 12/23/16 12:05 07:00 Sodium Level 139 Potassium Level 4.0 Chloride Level 106 Carbon Dioxide Level 29.6 Anion Gap 3 Blood Urea Nitrogen 21 Creatinine 0.38 Estimat Glomerular Filtration 164 Rate Random Glucose 152 Calcium Level 7.4 Protein Corrected Calcium 8.2 Phosphorus Level 2.4 Magnesium Level 2.2 Total Protein 5.7 Prothrombin Time 11.1 Prothromb Time International 1.0 Ratio Iron Level 31 Total Iron Binding Capacity 188 Percent Iron Saturation 16.5 Ferritin 70 Total Bilirubin 0.4 Direct Bilirubin 0.1 Indirect Bilirubin 0.3 Lactate Dehydrogenase 133 Vitamin B12 Level 692 Blood Type B NEGATIVE Direct Antiglobulin Test NEGATIVE ([place]) Imaging Last Impressions Upper GI Series 12/23/16 0000 Signed Impressions: Service Date/Time: December 09:22 - CONCLUSION: 1. No evidence of fistula or obstruction. 2. Small diverticulum along the distal esophagus. Louie Conrad MD Chest X-Ray 12/21/16 0000 Signed Impressions: Service Date/Time: Wednesday, December 21, 2016 10:41 - CONCLUSION: 1. Focal patchiness within the left apex consistent with probable known pleural based mass/nodular thickening. 2. No acute focal pulmonary infiltrate or pulmonary vascular congestion. Trey Netwon MD Abdomen/Pelvis CT 12/10/16 0000 Signed Impressions: Service Date/Time: Saturday, December 10, 2016 20:17 - CONCLUSION: 1. Focal thickening of the left rectus muscle with sinus tract extending from the lumen of the stomach into the rectus, presumably at site of prior percutaneous gastrostomy. 2. Moderate-sized left pleural effusion. No evidence of ascites. 3. 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 4. Sigmoid diverticulosis without radiographic evidence of diverticulitis. Armando Harrington MD Physical Exam HEENT: Normocephalic; atraumatic CHEST: Resp shallow/even. O2 via n/c CARDIAC: RRR. ABDOMEN: Soft, nondistended, mild tenderness at drainage bag site; no hepatosplenomegaly; bowel sounds are present in all four quadrants. Collection bag with small to mod amount of dark colored liquid drainage EXTREMITIES: No clubbing, cyanosis, or edema. SKIN: Normal; no rash; no jaundice. PIGGERY WORKER: No focal deficits; alert and oriented times three. 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 Pt came to office on 12/08 for peg tube site pain and drainage. The tube was noted to be dislodged and was completely removed. The incision was packed and she was given Augmentin suspension. She reports that since the tube was removed, it has been draining copious amounts of purulent She was seen in office today (12/10/16) with significant leakage from the peg tube site, with moderate erythema noted surrounding the site. She was sent to the hospital for IV antibiotics, TPN, and possible I&D. She denies fevers/chills. Abdomen/Pelvis CT (12/10/16)----> 1. Focal thickening of the left rectus muscle with sinus tract extending from the lumen of the stomach into the rectus, presumably at site of prior percutaneous gastrostomy. 2. Moderate-sized left pleural effusion. No evidence of ascites. 3. 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 4. Sigmoid diverticulosis without radiographic evidence of diverticulitis. Fistula site with drainage bag with large amount of dark drainage. NPO. TPN. Wound culture with lactobacillus species. Fluid with no growth x 48 hours. Site itself much improved- not red or indurated. S/P EGD with clip placement (12/17/16)----> Mid-esophageal radiation esophagitis with stricturing but I was able to pass the scope with ease, stomach there was a large opening and on the anterior wall of the stomach that connects to the skin and I cauterized the track with silver nitrate and I applied 4 clips on the inside at the opening of the fistula in hopes to reduce the amount of gastric juice flow and an NG tube was placed so that we can suction gastric contents. The duodenum was normal. The NGT was removed. Her gastric drainage is decreasing from the fistula. Upper GI Series (12/23/16 )----> 1. No evidence of fistula or obstruction. 2. Small diverticulum along the distal esophagus. Will discuss results with Dr. Monzon. - Cough/Hypoxia. Improved. CXR (12/21/16) 1. Focal patchiness within the left apex consistent with probable known pleural based mass/nodular thickening. 2. No acute focal pulmonary infiltrate or pulmonary vascular congestion. - Leukocytosis secondary to above. WBC 9.0 - GERD. PPI - Anemia, with drop in Hgb. HH dropped from 8.4/25.2 to 6.7/20.7. Hematology following, hemolysis workup in progress. 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 S/P multiple dilatations. She reports that there was some talk of a stent at one point, but that this was not able to be done secondary to the stricture being so tight. EGD with PEG tube placement (11/29/16)----> mid esophageal stricture with inflammation consistent with recurring radiation esophagitis, s/p dilation with 12, 14, normal stomach, normal duodenum, s/p peg tube placement. She was evaluated by the accounts supervisor at that time and they had recommended Jevity 1.5 bolus feedings 240 mls at 8am, 11am, 2pm, 5pm, 8pm with 60ml flushes before feeding and 120cc flushes after feeding. Plan will be for EGD with dilatation, possible stent placement once tract heals. Will d/w Dr. Monzon timing of tis. 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 S/P chemotherapy and radiotherapy, completed on 09/01/16. PET scan scheduled as outpatient. - Hypokalemia, HTN, Hypothyroidism, COPD, Hyperlipidemia, Macular degeneration per attending. PLAN: - Plan for possible EGD with stent placement in am - Obtain consents - Full liquids with ensure - NPO after MN - Systems Design Engineer evaluation for recommendations. - TPN - PPI - GS following - ID following - Monitor labs - Supportive care - Will discuss findings of Upper GI series and drop in Hgb with Dr. Monzon - Pt seen and examined by Dr. Monzon and myself and this note is written on his behalf (Venecia Patel) Physician Comments Patient seen and examined Agree with above Continue with current supportive care Monitor labs Imaging study noted gastric opening has closed We'll need wound care to help with addressing the fistula track now that it is completely closed at the gastric end Will consider EGD with dilation and stent placement tomorrow We'll need to start weaning off TPN and patient may be started on oral liquid nutrition (Sal Monzon MD) Venecia Patel Dec 23, 2016 11:52 Sal Monzon MD Dec 23, 2016 20:05
[2016-12-23 12:00] VITALS: BP 128/60; PULSE 107; RESP 18; TEMP 98.3; O2SAT 94
[2016-12-23] MEDS: [UNRECOGNIZED DRUG - OTHER] PO SCH (14:51)
[2016-12-23] MEDS: CLORAZEPATE PO SCH (14:51)
[2016-12-23] MEDS: HYDROmorphone HCL PF 1 MG/ML VIAL IV PUSH PRN ×3 (15:09→21:59)
[2016-12-23 15:39] LABS: HEMATOCRIT 31.3 % (35.0-46.0); REVIEW FLAG FINAL
[2016-12-23 16:00] VITALS: BP 139/65; PULSE 101; RESP 16; TEMP 98.3; O2SAT 97
[2016-12-23] MEDS: fentaNYL 50 MCG/HR PATCH T-DERMAL SCH (18:00)
[2016-12-23] MEDS: REMOVE OLD DURAGESIC (FENTANYL) PATCH T-DERMAL SCH (18:00)
[2016-12-23 20:00] VITALS: BP 111/53; PULSE 83; RESP 20; TEMP 96.8; O2SAT 97
[2016-12-23] MEDS: FAT EMULSION 20% INJ 250 ML (@10 mls/hr) IV-CENTRAL SCH (20:42)
[2016-12-23] MEDS: MULTIVITAMIN INJ 10 ML, FOLIC ACID INJ 1 MG in AMINO ACID IN D5W W/ELECTROLYT 2,000 ML IV SCH ×3 (20:42)
[2016-12-23] MEDS: AMITRIPTYLINE HCL 25 MG TAB PO SCH (21:47)
[2016-12-23] MEDS: ENOXAPARIN SODIUM 40 MG/0.4 ML SYRINGE SQ SCH (21:59)
[2016-12-24] VITALS: BP 110/56; PULSE 87; RESP 19; TEMP 98.2; O2SAT 100
[2016-12-24 00:11] VITALS: O2SAT 96
[2016-12-24] MEDS: RESP: IPRATROPIUM 0.5 MG/2.5 ML NEB NEB SCH ×4 (00:11→20:00)
[2016-12-24] MEDS ORDERED: SODIUM CHLORID 0.9% 500 ML IV PRN (03:30)
[2016-12-24] MEDS ORDERED: LACTATED RINGER'S 1000 ML IV PRN (03:30)
[2016-12-24] MEDS: ONDANSETRON HCL 4 MG/2 ML VIAL IV PUSH PRN ×4 (05:48→21:40)
[2016-12-24] MEDS: HYDROmorphone HCL PF 1 MG/ML VIAL IV PUSH PRN ×4 (05:49→21:40)
[2016-12-24] MEDS: DIPHENHY/LIDO/MAG/ALUM MOUTHWASH (Adult/Peds) 60 ML BTL SWISH-SWAL SCH ×3 (05:49→16:00)
[2016-12-24] MEDS: LEVOTHYROXINE SODIUM 75 MCG TAB PO SCH (05:49)
--- NOTE | 2016-12-24 06:01 | MB ---
cc: JOSE BAUTISTA DATE OF 1940 DATE OF CONSULTATION December 23, 2016 REASON FOR CONSULTATION The patient with a history of [id number] lung cancer who was admitted to the hospital for complications from radiation esophagitis. HISTORY OF PRESENT ILLNESS This is a 75-year-old female with a history of Stage III non-small cell lung cancer. This was a poorly differentiated lung cancer which was diagnosed via CT-guided biopsy in June of 2016. PET/CT scan confirmed this disease to be Stage III-B. She received concurrent chemotherapy and radiation treatments. She had a total of four cycles of chemotherapy. Follow-up imaging showed a residual lung lesion in the left upper lobe which was 1.8 x 2.4 x 3.8 cm. The patient was recommended two additional consolidation treatments but unfortunately due to her decline in performance status, she was not able to be given this treatment. She developed swallowing difficulty. The patient was seen by GI. An EGD was performed which showed an esophageal stricture. She had dilatation but it did not improve her symptoms. She continued to have dysphagia. CT scan did not show any recurrent disease that could be impinging on the esophagus. On prior admission she was seen by GI. She now presents to [facility] with recurrent symptoms from her radiation esophagitis. Due to significant dysphagia a PEG tube was placed. Unfortunately she had complications from the PEG tube insertion site. There was a large amount of leakage and a copious amount of purulent drainage from the PEG tube insertion site. There was a concern for abdominal wall fistula. The patient is currently being seen by GI. There are plans for EGD and stent placement in the a.m.. The patient became severely anemic with a hemoglobin in the 6 range and she was given 2 units of packed red blood cells. There are plans for upper GI series. Her fistula tract is closed at the gastric end. She is currently getting wound care. The patient has also been evaluated by Surgery and there are no surgical plans at this time. The patient is currently on TPN. For pain control she is receiving Fentanyl patch 25 mcg every 3 days and also receiving IV Dilaudid p.r.n. REVIEW OF SYSTEMS A comprehensive 14-point review of systems was completed which is negative except as described in the HPI. PAST MEDICAL HISTORY 1. History of [id number] lung cancer, Stage III-B, status post concurrent chemotherapy and radiation treatment. 2. Esophageal strictures status post dilatation x 4. 3. Hypertension. PAST SURGICAL HISTORY 1. Port placement. 2. Lung biopsy. 3. Hysterectomy. 4. Tonsillectomy. 5. PEG tube placement. FAMILY HISTORY Reviewed and is noncontributory to this admission. SOCIAL HISTORY Occasional alcohol intake. History of tobacco abuse of greater than 30 pack-years. Negative for drug use. MEDICATIONS Reviewed in the EMR. ALLERGIES She is allergic to SULFA DRUGS. PHYSICAL EXAMINATION VITAL SIGNS: Blood pressure is 139/65, pulse is 100, temperature is 98.3, O2 sats are 94% on 3 liters by nasal cannula. GENERAL: Chronically ill-appearing female in no apparent distress. HEENT: Pupils are equal, round, reactive to light. EOMI. No oral thrush. No oral lesions. NECK: Supple. No JVD, no bruits, no lymphadenopathy. CHEST: Clear to auscultation bilaterally. CARDIAC: S1, S2. Regular rate and rhythm. ABDOMEN: Soft. Mildly tender. There is dark gastric drainage around the PEG tube site. EXTREMITIES: Without any edema, erythema or cyanosis. SKIN: Without any petechiae, lesion or bruises. NEURO: No focal deficits. PSYCHIATRIC: Mood and affect is appropriate. LABORATORY DATA WBC is 9, hemoglobin was 6.7 yesterday and she was given 2 units of packed red blood cells for a hemoglobin of 10.2, MCV is 89.8, platelet count is 204. Serum chemistries show a sodium of 139, potassium 4, chloride 106, CO2 29.6, BUN 21, creatinine 0.38, GFR is 164. Calcium is 7.4, corrected calcium is 8.2, phosphorus 2.4, magnesium 2.2. Serum iron 31, TIBC 188, percent saturation is 16.5. Total bilirubin 0.4, direct bilirubin 0.1, indirect bilirubin 0.3. LDH is 133. IMAGING Reviewed in the EMR. She had a CT of the abdomen and pelvis on December 10, 2016. There was focal thickening of the left rectus muscle with sinus tract extending from the lumen of the stomach to the rectus, presumably at the site of prior percutaneous gastrostomy. There was a moderately sized left pleural effusion, sigmoid diverticulosis without any evidence of diverticulitis. She also had a chest x-ray on 12/21/2016 which shows focal patchiness within the left apex consistent with pleural-based mass versus nodules thickening; this is nonspecific. Upper GI series - No evidence of fistula obstruction. Small diverticula along the distal esophagus. ASSESSMENT AND PLAN This is a 76-year-old female with a history of hzk-txglv-emuy lung cancer, Stage III-B, who was treated with concurrent chemotherapy and radiation treatments. Post radiation treatments she had complication with esophageal stricture and possibly radiation esophagitis. She had developed significant dysphagia requiring multiple dilatations; eventually a PEG tube was placed. Unfortunately she has had complications from the PEG tube. She has an abdominal wall fistula. There was purulent drainage and possibly infection in this area. She has been treated with broad-spectrum antibiotics. The patient became acutely anemic. 1. Severe acute anemia. The patient was given 2 units of packed red blood cells. I had ordered anemia studies and additional workup to rule out any underlying hemolysis. She seems to be iron deficient. There is no evidence of hemolysis. She is likely losing blood through the GI tract. There is also a component of malnutrition. The patient is currently being seen by GI and further workup is ongoing. I will would proceed with giving her daily IV iron x 3 treatments. She will likely need additional treatments of IV iron. 2. Stage III-B non-small cell lung cancer status post concurrent chemotherapy and radiation treatments. At this point we need to reassess her disease to make sure that it is stable. She had residual lung mass and there were plans to give her consolidative treatment. However, she has not received this treatment. 3. Severe dysphagia, malnutrition. She is currently on TPN. 4. Radiation-induced esophageal stricture. There are plans for EGD and possible stent placement in the morning. 5. Abdominal wall fistula with infection. The patient was treated with IV antibiotics. 6. Multiple electrolyte abnormalities including hypophosphatemia and hypocalcemia. Correct electrolytes. Thank you for allowing me to participate in the care of this patient. I will continue to follow this patient along. MD JESS Valladares/MORE /11:37 PM /5:35 AM NOELLE
[2016-12-24 08:00] VITALS: BP 126/57; PULSE 99; RESP 16; TEMP 97.4; O2SAT 95
--- NOTE | 2016-12-24 08:21 | HHI.PR ---
Subjective Remarks Ms. Valdovinos is a 76 year old female with a history of NSCLC, radiation esophagitis presents to the ED due to complication of the PEG tube insertion site. PEG Tube was removed recently due to large leakage. 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 now Status post EGD and clip placement. 12/20: Seen in her bedroom she has anxiety, discussed on multiple opportunities with nurse, she had some desaturation associated with anxiety, given Venlafaxine and respiratory therapy, has NG tube in place 12/21: Stable in her bedroom does not want to take Venlafaxine and wants her home medicine, her relative with her, no nausea, vomit or diarrhea continue output by Ostomy, erythema and edema and loss of continuity of skin asked by General surgery to place Paste before the ostomy bag ring and do not touch ulcerated skin. NG tube removed. 12/22: Seen in the presence of nurse Miss Saha, her Hemoglobin 6.7 the patient questioned the need for Blood transfusion when placed for her and I went to discuss wit her she wants her Primary facility practice specialist Doctor Fe Montiel on the case I placed a consult for Oncology. 12/23: Patient without complaint today no complaint discussed with nurse Miss Garcia she wants to be started on her medicine Tranxene 3.75 mg TID at this time as per GI specialist recommended to continue NPO, Upper GI series with gastrografin she is going for this test. 12/24: even Gastrografin study was negative the patient has leak today had EGD and stent placement and PEG placement on 12.24-->EGD showed Radiation esophagitis, Esophageal stricture, Gastrocutaneous fistula, Gastric ulcers, she is in her bedroom stable with her relative with her for tomorrow probably will start tube feedings as per GI asked for Power Press Operator Objective Vital Signs Date Time Temp Pulse Resp B/P Pulse Ox O2 Delivery O2 Flow Rate FiO2 12/24/16 00:11 96 Nasal Cannula 3.00 12/24/16 00:00 98.2 87 19 110/56 100 12/23/16 20:00 96.8 83 20 111/53 97 12/23/16 16:00 98.3 101 16 139/65 97 12/23/16 12:00 98.3 107 18 128/60 94 I/O 12/23/16 12/23/16 12/23/16 12/24/16 12/24/16 12/24/16 07:00 15:00 23:00 07:00 15:00 23:00 Intake Total 1330 ml 745 ml 1060 ml 1171 ml Output Total 461 ml 75 ml Balance 1330 ml 284 ml 1060 ml 1096 ml Intake Oral 120 ml 0 ml 0 ml 0 ml IV Total 623 ml 319 ml 613 ml 681 ml TPN/PPN 498 ml 355 ml 373 ml 411 ml Lipid 89 ml 71 ml 74 ml 79 ml Drainage Total 461 ml 75 ml # Voids 3 3 2 3 # Bowel Movements 0 3 0 0 Result Diagram: 12/23/16 1500 12/22/16 1205 Imaging Last Impressions Upper GI Series 12/23/16 0000 Signed Impressions: Service Date/Time: December 09:22 - CONCLUSION: 1. No evidence of fistula or obstruction. 2. Small diverticulum along the distal esophagus. Louie Conrad MD Chest X-Ray 12/21/16 0000 Signed Impressions: Service Date/Time: Wednesday, December 21, 2016 10:41 - CONCLUSION: 1. Focal patchiness within the left apex consistent with probable known pleural based mass/nodular thickening. 2. No acute focal pulmonary infiltrate or pulmonary vascular congestion. Trey Newton MD Abdomen/Pelvis CT 12/10/16 0000 Signed Impressions: Service Date/Time: Saturday, December 10, 2016 20:17 - CONCLUSION: 1. Focal thickening of the left rectus muscle with sinus tract extending from the lumen of the stomach into the rectus, presumably at site of prior percutaneous gastrostomy. 2. Moderate-sized left pleural effusion. No evidence of ascites. 3. 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 4. Sigmoid diverticulosis without radiographic evidence of diverticulitis. Armando Harrington MD Procedures 12/17/2016 EGD with clip placement Other Results Laboratory Tests Test 12/22/16 12/22/16 12/22/16 12/23/16 06:00 11:22 12:05 07:00 White Blood Count 9.0 TH/MM3 Red Blood Count 2.30 MIL/MM3 Mean Corpuscular Volume 89.8 FL Mean Corpuscular Hemoglobin 28.9 PG Mean Corpuscular Hemoglobin 32.1 % Concent Red Cell Distribution Width 19.5 % Platelet Count 204 TH/MM3 Mean Platelet Volume 9.0 FL Neutrophils (%) (Auto) 75.0 % Lymphocytes (%) (Auto) 13.7 % Monocytes (%) (Auto) 8.4 % Eosinophils (%) (Auto) 2.3 % Basophils (%) (Auto) 0.6 % Neutrophils # (Auto) 6.8 TH/MM3 Lymphocytes # (Auto) 1.2 TH/MM3 Monocytes # (Auto) 0.8 TH/MM3 Eosinophils # (Auto) 0.2 TH/MM3 Basophils # (Auto) 0.1 TH/MM3 CBC Comment DIFF FINAL Differential Comment Antibody Screen NEGATIVE Crossmatch Leukocyte-Reduced Red Blood Cells Blood Bank Comment Sodium Level 139 MEQ/L Potassium Level 4.0 MEQ/L Chloride Level 106 MEQ/L Carbon Dioxide Level 29.6 MEQ/L Anion Gap 3 MEQ/L Blood Urea Nitrogen 21 MG/DL Creatinine 0.38 MG/DL Estimat Glomerular Filtration 164 ML/MIN Rate Random Glucose 152 MG/DL Calcium Level 7.4 MG/DL Protein Corrected Calcium 8.2 MG/DL Phosphorus Level 2.4 MG/DL Magnesium Level 2.2 MG/DL Total Protein 5.7 GM/DL Haptoglobin 225 MG/DL Prothrombin Time 11.1 SEC Prothromb Time International 1.0 RATIO Ratio Iron Level 31 MCG/DL Total Iron Binding Capacity 188 MCG/DL Percent Iron Saturation 16.5 % Ferritin 70 NG/ML Total Bilirubin 0.4 MG/DL Direct Bilirubin 0.1 MG/DL Indirect Bilirubin 0.3 MG/DL Lactate Dehydrogenase 133 U/L Vitamin B12 Level 692 PG/ML Blood Type B NEGATIVE Direct Antiglobulin Test NEGATIVE ([place]) Test 12/23/16 15:00 Hemoglobin 10.2 GM/DL Hematocrit 31.3 % Objective Remarks GENERAL: AOx3, NAD. SKIN: Warm and dry. HEAD: Normocephalic. EYES: No scleral icterus. No injection or drainage. NECK: Supple, trachea midline. No JVD or lymphadenopathy. CARDIOVASCULAR: Regular rate and rhythm without murmurs, gallops, or rubs. RESPIRATORY: Breath sounds equal bilaterally. No accessory muscle use. Right upper chest Port in place. GASTROINTESTINAL: Abdomen soft, non-tender, nondistended. ulcerated skin around her Ostomy. MUSCULOSKELETAL: No cyanosis, or edema. BACK: Nontender without obvious deformity. No CVA tenderness. Medications and IVs Current Medications Medications (Trade) Dose Ordered Sig/Alla Route Start Time Stop Time Status Last Admin (NS Flush) 2 ml BID IV FLUSH 12/10/16 21:00 12/21/16 09:33 (Lovenox Inj) 40 mg Q24H SQ 12/10/16 22:45 Hold 12/23/16 21:59 (Elavil) 25 mg HS PO 12/11/16 21:00 12/23/16 21:47 (Synthroid) 75 mcg DAILY@07 PO 12/11/16 07:00 12/24/16 05:49 Lisinopril 10 mg 10 mg DAILY PO 12/11/16 09:00 12/23/16 08:17 Dextrose/Sodium Chloride 1,000 ml @ 84 mls/hr [id number] IV 12/11/16 10:30 12/23/16 21:59 (Liposyn Iii 20% Inj) 250 ml @ 10 mls/hr Q24H IV-CENTRAL 12/11/16 20:00 12/23/16 20:42 (Zofran Inj) 4 mg Q6HR PRN IV PUSH 12/11/16 16:15 12/24/16 05:48 Hydromorphone HCl 1 mg 1 mg Q3H PRN IV PUSH 12/12/16 14:45 12/24/16 05:49 (Mvi-12 Inj/ Folvite Inj/ Clinimix E 09/30) 2,010.2 ml @ 50 mls/hr Q24H IV 12/13/16 20:00 12/23/16 20:42 (Magic Mouthwash Pediatric/Adult Liq) 5 ml ACHS SWISH-SWAL 12/19/16 16:00 12/23/16 21:49 (Mycostatin Liq) 5 ml QID SWISH-SWAL 12/19/16 18:00 12/23/16 21:47 (Duragesic 50 Mcg Patch.72 Hr) 1 patch Q3D T-DERMAL 12/20/16 18:00 12/20/16 19:19 Miscellaneous Information 1 Q3D T-DERMAL 12/20/16 18:00 12/20/16 19:19 (Robitussin Liq) 600 mg BID PO 12/21/16 09:45 12/23/16 21:48 Patient Own Medication PT OWN MED: TRANXENE-T (CLORAZEPA... 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 Currently have ostomy bag. - Due to purulent drainage, WBC 13.6, we started patient on broad spectrum Abx - Vancomycin and Zosyn IV. - GI has added IV fluconazole as well. ID was consulted. All abx discontinued on 12/13/2016 per ID. - Continue TPN. - Evaluated by home health. - Continue IV Dilaudid PRN. Continue Fentanyl patch 25mcg Q3days. - Patient underwent EGD with clip placement on 12/17/2016. EGD with Dilatation and possible stent placement once fistula heals. continue high output through Fistula. has Ulcerated skin around her ostomy and as per General Surgery Doctor Tex Sawant recommended Paste before ostomy ring and do not touch ulcerated skin with the ring. asked by GI for Upper GI series with Gastrografin. No evidence of Fistula or obstruction, Small diverticulum along the distal esophagus. Status post EGD and stent placement and PEG placement on 12.24--> EGD showed Radiation esophagitis, Esophageal stricture, Gastrocutaneous fistula, Gastric ulcers, she is in her bedroom stable with her relative with her for tomorrow probably will start tube feedings as per GI asked for Power Press Operator - Radiation induced esophageal stricture - Esophageal dilatation done recently. - Patient will likely need EGD with dilatation and/or stent placement. - History of Non-small cell lung cancer, for further management as per Oncology once improve her actual condition. - s/p chemo, radiation therapy. - Left sided pleural effusion - Etiology is not clear. Can be observed. - Currently patient is not requiring any supplemental O2. - If persistent, diagnostic thoracentesis can be considered to rule out lung cancer progression. - Electrolyte derangement replaced and following. - Hypothyroidism - continue Levothyroxine 75mcg Qday. - Hypertension - controlled. - Oral Thrush on Nystatin and Magic Mouth wash. -Anxiety to start her home medicine Tranxene 3.75 mg TID pharmacy information placed. -Anemia worsening today Hemoglobin 6.7 asked for blood transfusion of two units of PRBCs she asked for her Primary facility practice specialist Montrell Montiel started on Iron IV For pain was increased Fentanyl to 50 mcg per hour every three days Full code. Lovenox. Discharge Planning Will need arrangements for TPN on discharge home with HHC planned. Syed Mensah MD Dec 24, 2016 08:21
[2016-12-24] MEDS: guaiFENesin SOLUTION 200 MG/10 ML CUP PO SCH ×2 (08:33→21:00)
[2016-12-24] MEDS: LISINOPRIL 10 MG TAB PO SCH (08:33)
[2016-12-24] MEDS: NYSTATIN SUSP 500,000 U/5 ML CUP SWISH-SWAL SCH ×4 (08:34→21:40)
[2016-12-24] MEDS: CLORAZEPATE PO SCH ×3 (08:35→17:22)
[2016-12-24] MEDS: [UNRECOGNIZED DRUG - OTHER] PO SCH ×3 (08:35→17:22)
[2016-12-24] MEDS: IRON SUCROSE INJ 200 MG in SODIUM CHLORIDE 0.9% INJ 100 ML IV SCH (09:00)
--- NOTE | 2016-12-24 09:16 | PD.ONC.PN ---
Subjective Subjective Remarks Afebrile overnight. Just back from GI lab Had EGD with stent placement as well as PEG tube placement. Tired and frustrated with being in the hospital. Objective Data Date Time Temp Pulse Resp B/P Pulse Ox O2 Delivery O2 Flow Rate FiO2 12/24/16 08:00 97.4 99 16 126/57 95 12/24/16 00:11 96 Nasal Cannula 3.00 12/24/16 00:00 98.2 87 19 110/56 100 12/23/16 20:00 96.8 83 20 111/53 97 12/23/16 16:00 98.3 101 16 139/65 97 12/23/16 12:00 98.3 107 18 128/60 94 12/24/16 12/24/16 12/24/16 07:00 15:00 23:00 Intake Total 1171 ml Output Total 75 ml Balance 1096 ml Result Diagram: 12/23/16 1500 12/22/16 1205 Laboratory Results Laboratory Tests Test 12/23/16 15:00 Hemoglobin 10.2 GM/DL Hematocrit 31.3 % Administered Medications Medications (Trade) Dose Ordered Sig/Alla Route PRN Reason Start Time Stop Time Status Last Admin Dose Admin Sodium Chloride (NS Flush) 2 ml BID IV FLUSH 12/10/16 21:00 12/21/16 09:33 Enoxaparin Sodium (Lovenox Inj) 40 mg Q24H SQ 12/10/16 22:45 Hold 12/23/16 21:59 Amitriptyline HCl (Elavil) 25 mg HS PO 12/11/16 21:00 12/23/16 21:47 Levothyroxine Sodium (Synthroid) 75 mcg DAILY@07 PO 12/11/16 07:00 12/24/16 05:49 Lisinopril 10 mg 10 mg DAILY PO 12/11/16 09:00 12/24/16 08:33 Dextrose/Sodium Chloride 1,000 ml @ 84 mls/hr [id number] IV 12/11/16 10:30 12/23/16 21:59 Fat Emulsion Intravenous (Liposyn Iii 20% Inj) 250 ml @ 10 mls/hr Q24H IV-CENTRAL 12/11/16 20:00 12/23/16 20:42 Ondansetron HCl (Zofran Inj) 4 mg Q6HR PRN IV PUSH N/V 12/11/16 16:15 12/24/16 05:48 Hydromorphone HCl 1 mg 1 mg Q3H PRN IV PUSH PAIN SCALE 5 TO 10 12/12/16 14:45 12/24/16 08:34 Multivitamins/ Folic Acid/Amino Acids/ Electrolytes/ Dextrose (Mvi-12 Inj/ Folvite Inj/ Clinimix E 5/25) 2,010.2 ml @ 50 mls/hr Q24H IV 12/13/16 20:00 12/23/16 20:42 Lidocaine/ Diphenhydr/Alum/ Mg/Simeth (Magic Mouthwash Pediatric/Adult Liq) 5 ml ACHS SWISH-SWAL 12/19/16 16:00 12/23/16 21:49 Nystatin (Mycostatin Liq) 5 ml QID SWISH-SWAL 12/19/16 18:00 12/23/16 21:47 Fentanyl (Duragesic 50 Mcg Patch.72 Hr) 1 patch Q3D T-DERMAL 12/20/16 18:00 12/20/16 19:19 Miscellaneous Information 1 Q3D T-DERMAL 12/20/16 18:00 12/20/16 19:19 Guaifenesin (Robitussin Liq) 600 mg BID PO 12/21/16 09:45 12/23/16 21:48 Patient Own Medication PT OWN MED: TRANXENE-T (CLORAZEPA... TID PO 12/23/16 13:00 12/24/16 08:35 Objective Remarks GENERAL: Elderly female upright in bed, slightly agitated, anxious SKIN: Warm and dry. HEAD: Normocephalic. EYES: No injection or drainage. NECK: Supple, trachea midline. CARDIOVASCULAR: Regular rate and rhythm RESPIRATORY: diminished at bases. anterior mccracken with occasional rhonchi. On 3L O2 via NC GASTROINTESTINAL: Abdomen soft, PEG tube in place, clamped, with clean bandages overlying wound. EXTREMITIES: No cyanosis NEUROLOGICAL: No obvious focal deficit. Awake, alert, and oriented x3. Assessment/Plan Problem List: (1) Dysphagia Status: Acute Plan: currently on TPN. History --presents to [facility] with recurrent symptoms from her radiation esophagitis. --Due to significant dysphagia a PEG tube was placed. --had complications from the PEG tube insertion site. --++large amount of leakage and a copious amount of purulent drainage from the PEG tube insertion site. +concern for abdominal wall fistula. --EGD and stent placement and PEG placement on 12.24-->EGD showed Radiation esophagitis, Esophageal stricture, Gastrocutaneous fistula, Gastric ulcers --upper GI series, 12/23-->No evidence of fistula or obstruction. Small diverticulum along the distal esophagus. (2) Non-small cell lung cancer (NSCLC) Status: Acute Plan: --further treatment in clinic once improvement in current conditions History: diagnosed via CT-guided biopsy in June of 2016. PET/CT scan confirmed this disease to be Stage III-B. --received concurrent chemotherapy and radiation treatments. --had a total of four cycles of chemotherapy. --Follow-up imaging showed a residual lung lesion in the left upper lobe which was 1.8 x 2.4 x 3.8 cm. The patient was recommended two additional consolidation treatments but unfortunately due to her decline in performance status, she was not able to be given this treatment. --developed swallowing difficulty. seen by GI. An EGD was performed which showed an esophageal stricture. She had dilatation but it did not improve her symptoms.She continued to have dysphagia. CT scan did not show any recurrent disease that could be impinging on the esophagus. On prior admission she was seen by GI. (3) Normocytic anemia Status: Acute Plan: monitor and transfuse as needed, IV iron ordered History: --patient became severely anemic with a hemoglobin in the 6 range and she was given 2 units of packed red blood cells. --no evidence of hemolysis. --likely losing blood through the GI tract. --also a component of malnutrition. --currently being seen by GI and further workup is ongoing. --ordered daily IV iron x 3 treatments. (4) Pain Status: Acute Plan: --Fentanyl patch 25 mcg every 3 days and IV Dilaudid p.r.n. (5) Abdominal wall fistula Status: Acute Plan: -- treated with IV antibiotics. --Her fistula tract is closed at the gastric end. She is currently getting wound care. --has also been evaluated by Surgery and there are no surgical plans at this time. Assessment 76y/o female with a history of [id number] lung cancer who was admitted to the hospital for complications from radiation esophagitis. h/o History of [id number] lung cancer, Stage III-B, status post concurrent chemotherapy and radiation treatment. Esophageal strictures status post dilatation x 4. Hypertension. Port placement. Lung biopsy. Hysterectomy. Tonsillectomy. PEG tube placement. Plan 1. check hemoglobin today 2. check CBC tomorrow 3. start TF per GI 3. continue pain management. Attending Statement The exam, history, and the medical decision-making described in the above note were completed with the assistance of the mid-level provider. I reviewed and agree with the findings presented. I attest that I had a [id number] encounter with the patient on the same day, and personally performed and documented my assessment and findings in the medical record. Rakel Saleem Dec 24, 2016 09:16 Montrell Montiel MD Dec 24, 2016 22:52
[2016-12-24] MEDS: SODIUM CHLORIDE 0.9% FLUSH 10 ML FLUSH IV FLUSH SCH ×2 (09:28→21:00)
[2016-12-24] MEDS: DEXT 5%-NACL 0.9% 1000 ML INJ 1,000 ML IV SCH ×2 (09:28→16:29)
[2016-12-24] MEDS ORDERED: PROPOFOL 200 MG/20 ML AMP IV ONE (11:40)
--- NOTE | 2016-12-24 12:16 | RADRPT ---
EXAM DATE/TIME: 12/24/2016 11:24 [facility] COMPARISON: GASTROGRAFIN GI SERIES, December 23, 2016, 9:22. INDICATIONS : Esophageal stent placement for stricture. FLUORO TIME: 1.33 minutes IMAGE COUNT: 1 CONTRAST: Instilled by Ordering Physician MEDICAL HISTORY : Carcinoma, lung. SURGICAL HISTORY : None. ENCOUNTER: Initial ACUITY: 1 day PAIN SCORE: Non-responsive. LOCATION: Esophagus FINDINGS: The [id number]-[id number] in good position. Note is made of an esophageal stent which appears well-positioned . CONCLUSION: 1. Esophageal stent in excellent position. Clifford Machado MD on December 24, 2016 at 12:15 Board Certified Radiologist. This report was verified electronically.
[2016-12-24] MEDS ORDERED: *morphine SULFATE 8 MG/ML PERIprocedure ONLY ONE (12:29)
--- NOTE | 2016-12-24 12:35 | PD.PROCEDR ---
GI Procedure REFERRING PHYSICIAN BRIEN PROCEDURE PERFORMED EGD with esophageal stent placement and PEG placement INDICATION FOR PROCEDURE Gastrocutaneous fistula and esophageal stricture with radiation esophagitis PROCEDURE: The procedure, risks and benefits were discussed with Ms. Valdovinos and informed consent was obtained. Anesthesia sedated her with Diprivan. She was placed in the left lateral decubitus position. EGD: The Pentax videoscope was introduced through the oropharynx and advanced to the second portion of the duodenum under direct visualization. Retroflexion was performed in the stomach. FINDINGS: The esophagus there was mid esophageal stricture secondary to radiation esophagitis this was dilated with a scope and then a 10 cm 22 Urdu stent was placed under fluoroscopy guidance placement was optimal The stomach and the fistula opening was still open and the colostomy bag inflated I tried again to place some clips but was unable and therefore a PEG tube was placed to allow for fistula healing to allow for closure from the inside also noted 2 ulcers adjacent to the fistula opening with clean base no visible vessel The duodenum this was normal ESTIMATED BLOOD LOSS: None SPECIMENS REMOVED: None COMPLICATIONS: None IMPRESSION: Radiation esophagitis Esophageal stricture Gastrocutaneous fistula Gastric ulcers PLAN: Patient needs to be on PPI We'll start oral intake We will need to wean off TPN Monitor labs Hopefully home in 1-2 days Follow-up with GI post discharge EGD in 1 month to remove esophageal stent and possibly remove the PEG tube at that point in time Sal Monzon MD Dec 24, 2016 12:35
[2016-12-24] MEDS: PANTOPRAZOLE SOD 40 MG DELAYED RELEASE TAB PO SCH ×2 (13:12→21:40)
[2016-12-24] MEDS ORDERED: DO NOT ADM ANY ANTICOAGULANT DRUGS PRN (13:45)
[2016-12-24 16:00] VITALS: BP 139/65; PULSE 105; RESP 20; TEMP 97.6; O2SAT 93
[2016-12-24 16:23] LABS: HEMATOCRIT 30.4 % (35.0-46.0); REVIEW FLAG FINAL
--- NOTE | 2016-12-24 19:53 | PD.WCN.NOT ---
Wound Consult Description: Fistula management Communicated with: NARCISO Garcia and Doctor Shyann LEVINE Recommendation: Please encrust patient for skin irritation around PEG tube by applying stoma powder to irritation and wiping off and then applying skin prep and letting dry before repeating process a second time. Wound care will see patient on Tuesday if not D/c Additional Information: Attempted to see patient on earlier for fistula management. Patient in bed with dry dressing and new PEG tube in place ,secured together to skin by 2 inch silk tape. Patient is refusing to have dressing removed.States,"I just came back from surgery and they just placed this dressing". Spoke with Doctor Boothe and Jose STUART . Will see patient on Tuesday if still admitted. Kaylan Perez [facility] Dec 24, 2016 19:53
[2016-12-24 20:00] VITALS: BP 176/73; PULSE 96; RESP 19; TEMP 97.5; O2SAT 92
[2016-12-24] MEDS: MULTIVITAMIN INJ 10 ML, FOLIC ACID INJ 1 MG in AMINO ACID IN D5W W/ELECTROLYT 2,000 ML IV SCH ×3 (21:39)
[2016-12-24] MEDS: FAT EMULSION 20% INJ 250 ML (@10 mls/hr) IV-CENTRAL SCH (21:39)
[2016-12-24] MEDS: AMITRIPTYLINE HCL 25 MG TAB PO SCH (21:40)
[2016-12-25] MEDS: HYDROmorphone HCL PF 1 MG/ML VIAL IV PUSH PRN ×6 (02:20→20:57)
[2016-12-25] MEDS: ONDANSETRON HCL 4 MG/2 ML VIAL IV PUSH PRN ×5 (02:20→20:57)
[2016-12-25] MEDS: RESP: IPRATROPIUM 0.5 MG/2.5 ML NEB NEB SCH ×6 (03:57→20:00)
[2016-12-25] MEDS: LEVOTHYROXINE SODIUM 75 MCG TAB PO SCH (05:34)
[2016-12-25 06:28] LABS: AUTOMATED NEUTROPHIL # 10.8 TH/MM3 (1.8-7.7); BASOPHIL # 0.1 TH/MM3 (0-0.2); BASOPHIL % 0.6 % (0.0-2.0); EOSINOPHIL # 0.3 TH/MM3 (0-0.4); EOSINOPHIL % 2.3 % (0.0-4.0); HEMATOCRIT 30.2 % (35.0-46.0); HEMO FLAGS DIFF FINAL; LYMPH % 7.5 % (9.0-44.0); MEAN CELL VOLUME 87.3 FL (80.0-100.0); MEAN CORPUSCULAR HEMOGLOBIN 28.2 PG (27.0-34.0); MEAN CORPUSCULAR HGB CONC 32.3 % (32.0-36.0); MONO % 9.1 % (0.0-8.0); NEUT % 80.5 % (16.0-70.0); PLATELET COUNT 224 TH/MM3 (150-450); RED BLOOD COUNT 3.46 MIL/MM3 (4.00-5.30); RED CELL DISTRIBUTION WIDTH 19.2 % (11.6-17.2); WHITE BLOOD COUNT 13.4 TH/MM3 (4.0-11.0)
[2016-12-25 07:00] LABS: MAGNESIUM 1.8 MG/DL (1.5-2.5); POTASSIUM 3.5 MEQ/L (3.5-5.1)
[2016-12-25 07:16] LABS: CALCIUM-PROTEIN CORRECTED 7.9 MG/DL (8.5-10.1)
[2016-12-25 08:00] VITALS: BP 137/63; PULSE 108; RESP 22; TEMP 97.8; O2SAT 91
[2016-12-25] MEDS: DEXT 5%-NACL 0.9% 1000 ML INJ 1,000 ML IV SCH ×2 (08:16→20:56)
[2016-12-25] MEDS: IRON SUCROSE INJ 200 MG in SODIUM CHLORIDE 0.9% INJ 100 ML IV SCH (08:17)
[2016-12-25] MEDS: SODIUM CHLORIDE 0.9% FLUSH 10 ML FLUSH IV FLUSH SCH ×2 (08:18→20:57)
[2016-12-25] MEDS: PANTOPRAZOLE SOD 40 MG DELAYED RELEASE TAB PO SCH ×2 (08:19→20:57)
[2016-12-25] MEDS: guaiFENesin SOLUTION 200 MG/10 ML CUP PO SCH ×2 (08:20→21:03)
[2016-12-25] MEDS: CLORAZEPATE PO SCH ×3 (08:21→18:00)
[2016-12-25] MEDS: NYSTATIN SUSP 500,000 U/5 ML CUP SWISH-SWAL SCH ×4 (08:21→20:57)
[2016-12-25] MEDS: [UNRECOGNIZED DRUG - OTHER] PO SCH ×3 (08:21→18:00)
[2016-12-25] MEDS: LISINOPRIL 10 MG TAB PO SCH (08:21)
--- NOTE | 2016-12-25 09:51 | HHI.GIFU ---
Subjective Remarks Same overall condition, did not eat and not feeling hungry . Objective Vitals I&O Vital Signs Date Time Temp Pulse Resp B/P Pulse Ox O2 Delivery O2 Flow Rate FiO2 12/25/16 08:39 3.00 12/25/16 08:00 97.8 108 22 137/63 91 12/24/16 20:00 97.5 96 19 176/73 92 12/24/16 16:00 97.6 105 20 139/65 93 12/24/16 12:45 97.4 94 23 98 Nasal Cannula 3 12/24/16 12:30 94 23 159/77 98 Nasal Cannula 3 12/24/16 12:15 95 23 150/72 100 Nasal Cannula 3 12/24/16 12:05 98.1 96 23 153/76 95 Nasal Cannula 3 I/O 12/24/16 12/24/16 12/24/16 12/25/16 12/25/16 12/25/16 07:00 15:00 23:00 07:00 15:00 23:00 Intake Total 1171 ml 450 ml 1310 ml 1310 ml Output Total 75 ml 1 ml Balance 1096 ml 449 ml 1310 ml 1310 ml Intake Oral 0 ml 1 ml 120 ml 120 ml IV Total 681 ml 414 ml 414 ml TPN/PPN 411 ml 124 ml 679 ml 679 ml Lipid 79 ml 25 ml 97 ml 97 ml Other 300 ml Output Urine Total 1 ml Drainage Total 75 ml # Voids 3 1 2 # Bowel Movements 0 0 0 0 Laboratory Laboratory Tests Test 12/24/16 12/25/16 15:35 06:04 Hemoglobin 9.9 9.7 Hematocrit 30.4 30.2 White Blood Count 13.4 Red Blood Count 3.46 Mean Corpuscular Volume 87.3 Mean Corpuscular Hemoglobin 28.2 Mean Corpuscular Hemoglobin 32.3 Concent Red Cell Distribution Width 19.2 Platelet Count 224 Mean Platelet Volume 9.3 Neutrophils (%) (Auto) 80.5 Lymphocytes (%) (Auto) 7.5 Monocytes (%) (Auto) 9.1 Eosinophils (%) (Auto) 2.3 Basophils (%) (Auto) 0.6 Neutrophils # (Auto) 10.8 Lymphocytes # (Auto) 1.0 Monocytes # (Auto) 1.2 Eosinophils # (Auto) 0.3 Basophils # (Auto) 0.1 CBC Comment DIFF FINAL Differential Comment Sodium Level 138 Potassium Level 3.5 Chloride Level 103 Carbon Dioxide Level 28.0 Anion Gap 7 Blood Urea Nitrogen 14 Creatinine 0.39 Estimat Glomerular Filtration 159 Rate Random Glucose 97 Calcium Level 7.3 Protein Corrected Calcium 7.9 Phosphorus Level 2.5 Magnesium Level 1.8 Total Protein 6.0 Physical Exam HEENT: Normocephalic; atraumatic CHEST: Resp shallow/even. O2 via n/c CARDIAC: RRR. ABDOMEN: Soft, nondistended, mild tenderness at drainage bag site; no hepatosplenomegaly; bowel sounds are present in all four quadrants. site intact and clean EXTREMITIES: No clubbing, cyanosis, or edema. SKIN: Normal; no rash; no jaundice. ADMINISTRATION MANAGER: No focal deficits; alert and oriented times three. 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 S/P multiple dilatations. EGD with PEG tube placement (11/29/16)----> mid esophageal stricture with inflammation consistent with recurring radiation esophagitis, s/ p dilation with 12, 14, normal stomach, normal duodenum, s/p peg tube placement. She was evaluated by the director of housing and energy services at that time and they had recommended Jevity 1.5 bolus feedings 240 mls at 8am, 11am, 2pm, 5pm, 8pm with 60ml flushes before feeding and 120cc flushes after feeding. 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 Pt came to office on 12/08 for peg tube site pain and drainage. The tube was noted to be dislodged and was completely removed. The incision was packed and she was given Augmentin suspension. She reports that since the tube was removed, it has been draining copious amounts of purulent She was seen in office today (12/10/16) with significant leakage from the peg tube site, with moderate erythema noted surrounding the site. She was sent to the hospital for IV antibiotics, TPN, and possible I&D. She denies fevers/chills. Abdomen/Pelvis CT (12/10/16)----> 1. Focal thickening of the left rectus muscle with sinus tract extending from the lumen of the stomach into the rectus, presumably at site of prior percutaneous gastrostomy. 2. Moderate-sized left pleural effusion. No evidence of ascites. 3. 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 4. Sigmoid diverticulosis without radiographic evidence of diverticulitis. Fistula site with drainage bag with large amount of dark drainage. NPO. TPN. Wound culture with lactobacillus species. Fluid with no growth x 48 hours. Site itself much improved- not red or indurated. S/P EGD with clip placement (12/17/16)----> Mid-esophageal radiation esophagitis with stricturing but I was able to pass the scope with ease, stomach there was a large opening and on the anterior wall of the stomach that connects to the skin and I cauterized the track with silver nitrate and I applied 4 clips on the inside at the opening of the fistula in hopes to reduce the amount of gastric juice flow and an NG tube was placed so that we can suction gastric contents. The duodenum was normal. The NGT was removed. Her gastric drainage is decreasing from the fistula. Upper GI Series (12/23/16 )----> 1. No evidence of fistula or obstruction. 2. Small diverticulum along the distal esophagus. Will discuss results with Dr. Monzon. - Cough/Hypoxia. Improved. CXR (12/21/16) 1. Focal patchiness within the left apex consistent with probable known pleural based mass/nodular thickening. 2. No acute focal pulmonary infiltrate or pulmonary vascular congestion. - Leukocytosis secondary to above. WBC 9.0 - GERD. PPI - Anemia, with drop in Hgb. HH dropped from 8.4/25.2 to 6.7/20.7. Hematology following, hemolysis workup in progress. 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 S/P chemotherapy and radiotherapy, completed on 09/01/16. PET scan scheduled as outpatient. - Hypokalemia, HTN, Hypothyroidism, COPD, Hyperlipidemia, Macular degeneration per attending. PLAN: - Soft diet - TPN until improvement - PPI - GS following - ID following - Monitor labs - Supportive care - Will follow up with Brent Aguirre MD Dec 25, 2016 09:51
--- NOTE | 2016-12-25 10:24 | HHI.PR ---
Subjective Remarks Ms. Valdovinos is a 76 year old female with a history of NSCLC, radiation esophagitis presents to the ED due to complication of the PEG tube insertion site. PEG Tube was removed recently due to large leakage. 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 now Status post EGD and clip placement. 12/20: Seen in her bedroom she has anxiety, discussed on multiple opportunities with nurse, she had some desaturation associated with anxiety, given Venlafaxine and respiratory therapy, has NG tube in place 12/21: Stable in her bedroom does not want to take Venlafaxine and wants her home medicine, her relative with her, no nausea, vomit or diarrhea continue output by Ostomy, erythema and edema and loss of continuity of skin asked by General surgery to place Paste before the ostomy bag ring and do not touch ulcerated skin. NG tube removed. 12/22: Seen in the presence of nurse Miss Saha, her Hemoglobin 6.7 the patient questioned the need for Blood transfusion when placed for her and I went to discuss wit her she wants her Primary activity therapy specialist Doctor Fe Montiel on the case I placed a consult for Oncology. 12/23: Patient without complaint today no complaint discussed with nurse Miss Garcia she wants to be started on her medicine Tranxene 3.75 mg TID at this time as per GI specialist recommended to continue NPO, Upper GI series with gastrografin she is going for this test. 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 12/25: Seen in her bedroom in the presence of nurse the patient asked to get the nurse to explain which will be the management for her as per nurse she is been allowed to eat soft diet and complement with tube feedings, to try to stop the TPN, now she understands the plan of care recommended by Amf Mechanic no nausea, vomit or diarrhea but states do not have appetite. Objective Vital Signs Date Time Temp Pulse Resp B/P Pulse Ox O2 Delivery O2 Flow Rate FiO2 12/25/16 08:39 3.00 12/25/16 08:00 97.8 108 22 137/63 91 12/24/16 20:00 97.5 96 19 176/73 92 12/24/16 16:00 97.6 105 20 139/65 93 12/24/16 12:45 97.4 94 23 98 Nasal Cannula 3 12/24/16 12:30 94 23 159/77 98 Nasal Cannula 3 12/24/16 12:15 95 23 150/72 100 Nasal Cannula 3 12/24/16 12:05 98.1 96 23 153/76 95 Nasal Cannula 3 I/O 12/24/16 12/24/16 12/24/16 12/25/16 12/25/16 12/25/16 07:00 15:00 23:00 07:00 15:00 23:00 Intake Total 1171 ml 450 ml 1310 ml 1310 ml Output Total 75 ml 1 ml Balance 1096 ml 449 ml 1310 ml 1310 ml Intake Oral 0 ml 1 ml 120 ml 120 ml IV Total 681 ml 414 ml 414 ml TPN/PPN 411 ml 124 ml 679 ml 679 ml Lipid 79 ml 25 ml 97 ml 97 ml Other 300 ml Output Urine Total 1 ml Drainage Total 75 ml # Voids 3 1 2 # Bowel Movements 0 0 0 0 Result Diagram: 12/25/16 0604 12/25/16 0604 Imaging Last Impressions GI Procedure 12/24/16 1119 Signed Impressions: Service Date/Time: Saturday, December 24, 2016 11:24 - CONCLUSION: 1. Esophageal stent in excellent position. Clifford Machado MD Upper GI Series 12/23/16 0000 Signed Impressions: Service Date/Time: December 09:22 - CONCLUSION: 1. No evidence of fistula or obstruction. 2. Small diverticulum along the distal esophagus. Louie Conrad MD Chest X-Ray 12/21/16 0000 Signed Impressions: Service Date/Time: Wednesday, December 21, 2016 10:41 - CONCLUSION: 1. Focal patchiness within the left apex consistent with probable known pleural based mass/nodular thickening. 2. No acute focal pulmonary infiltrate or pulmonary vascular congestion. Trey Newton MD Abdomen/Pelvis CT 12/10/16 0000 Signed Impressions: Service Date/Time: Saturday, December 10, 2016 20:17 - CONCLUSION: 1. Focal thickening of the left rectus muscle with sinus tract extending from the lumen of the stomach into the rectus, presumably at site of prior percutaneous gastrostomy. 2. Moderate-sized left pleural effusion. No evidence of ascites. 3. 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 4. Sigmoid diverticulosis without radiographic evidence of diverticulitis. Armando Harrington MD Procedures 12/17/2016 EGD with clip placement Other Results Laboratory Tests Test 12/22/16 12/23/16 12/25/16 11:22 07:00 06:04 Antibody Screen NEGATIVE Crossmatch Leukocyte-Reduced Red Blood Cells Blood Bank Comment Haptoglobin 225 MG/DL Prothrombin Time 11.1 SEC Prothromb Time International 1.0 RATIO Ratio Iron Level 31 MCG/DL Total Iron Binding Capacity 188 MCG/DL Percent Iron Saturation 16.5 % Ferritin 70 NG/ML Total Bilirubin 0.4 MG/DL Direct Bilirubin 0.1 MG/DL Indirect Bilirubin 0.3 MG/DL Lactate Dehydrogenase 133 U/L Vitamin B12 Level 692 PG/ML Blood Type B NEGATIVE Direct Antiglobulin Test NEGATIVE ([place]) White Blood Count 13.4 TH/MM3 Red Blood Count 3.46 MIL/MM3 Hemoglobin 9.7 GM/DL Hematocrit 30.2 % Mean Corpuscular Volume 87.3 FL Mean Corpuscular Hemoglobin 28.2 PG Mean Corpuscular Hemoglobin 32.3 % Concent Red Cell Distribution Width 19.2 % Platelet Count 224 TH/MM3 Mean Platelet Volume 9.3 FL Neutrophils (%) (Auto) 80.5 % Lymphocytes (%) (Auto) 7.5 % Monocytes (%) (Auto) 9.1 % Eosinophils (%) (Auto) 2.3 % Basophils (%) (Auto) 0.6 % Neutrophils # (Auto) 10.8 TH/MM3 Lymphocytes # (Auto) 1.0 TH/MM3 Monocytes # (Auto) 1.2 TH/MM3 Eosinophils # (Auto) 0.3 TH/MM3 Basophils # (Auto) 0.1 TH/MM3 CBC Comment DIFF FINAL Differential Comment Sodium Level 138 MEQ/L Potassium Level 3.5 MEQ/L Chloride Level 103 MEQ/L Carbon Dioxide Level 28.0 MEQ/L Anion Gap 7 MEQ/L Blood Urea Nitrogen 14 MG/DL Creatinine 0.39 MG/DL Estimat Glomerular Filtration 159 ML/MIN Rate Random Glucose 97 MG/DL Calcium Level 7.3 MG/DL Protein Corrected Calcium 7.9 MG/DL Phosphorus Level 2.5 MG/DL Magnesium Level 1.8 MG/DL Total Protein 6.0 GM/DL Objective Remarks GENERAL: AOx3, NAD. SKIN: Warm and dry. HEAD: Normocephalic. EYES: No scleral icterus. No injection or drainage. NECK: Supple, trachea midline. No JVD or lymphadenopathy. CARDIOVASCULAR: Regular rate and rhythm without murmurs, gallops, or rubs. RESPIRATORY: Breath sounds equal bilaterally. No accessory muscle use. Right upper chest Port in place. GASTROINTESTINAL: Abdomen soft, non-tender, nondistended. ulcerated skin around her Ostomy. MUSCULOSKELETAL: No cyanosis, or edema. BACK: Nontender without obvious deformity. No CVA tenderness. Medications and IVs Current Medications Medications (Trade) Dose Ordered Sig/Alla Route Start Time Stop Time Status Last Admin (NS Flush) 2 ml BID IV FLUSH 12/10/16 21:00 12/24/16 09:28 (Lovenox Inj) 40 mg Q24H SQ 12/10/16 22:45 Hold 12/23/16 21:59 (Elavil) 25 mg HS PO 12/11/16 21:00 12/24/16 21:40 (Synthroid) 75 mcg DAILY@07 PO 12/11/16 07:00 12/25/16 05:34 Lisinopril 10 mg 10 mg DAILY PO 12/11/16 09:00 12/25/16 08:21 Dextrose/Sodium Chloride 1,000 ml @ 84 mls/hr [id number] IV 12/11/16 10:30 12/25/16 08:16 (Liposyn Iii 20% Inj) 250 ml @ 10 mls/hr Q24H IV-CENTRAL 12/11/16 20:00 12/24/16 21:39 Hydromorphone HCl 1 mg 1 mg Q3H PRN IV PUSH 12/12/16 14:45 12/25/16 05:34 (Mvi-12 Inj/ Folvite Inj/ Clinimix E 09/30) 2,010.2 ml @ 50 mls/hr Q24H IV 12/13/16 20:00 12/24/16 21:39 (Mycostatin Liq) 5 ml QID SWISH-SWAL 12/19/16 18:00 12/25/16 08:21 Miscellaneous Information 1 Q3D T-DERMAL 12/20/16 18:00 12/20/16 19:19 (Robitussin Liq) 600 mg BID PO 12/21/16 09:45 12/25/16 08:20 Patient Own Medication PT OWN MED: TRANXENE-T (CLORAZEPA... TID PO 12/23/16 13:00 12/25/16 08:21 Iron Sucrose 200 mg/Sodium Chloride 110 ml @ 110 mls/hr DAILY IV 12/24/16 09:00 12/26/16 09:59 12/25/16 08:17 Lactated Ringer's 1,000 ml @ 30 mls/hr Q24H PRN IV 12/24/16 03:30 12/27/16 03:29 (NS 500 ml Inj) 500 ml @ 30 mls/hr [id number] PRN IV 12/24/16 03:30 12/27/16 03:29 (Protonix) 40 mg Q12HR PO 12/24/16 12:45 12/25/16 08:19 Miscellaneous Information ALL NURSING DEPARTME... 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 Currently have ostomy bag. - Due to purulent drainage, WBC 13.6, we started patient on broad spectrum Abx - Vancomycin and Zosyn IV. - GI has added IV fluconazole as well. ID was consulted. All abx discontinued on 12/13/2016 per ID. - Continue TPN. - Evaluated by home health. - Continue IV Dilaudid PRN. Continue Fentanyl patch 25mcg Q3days. - Patient underwent EGD with clip placement on 12/17/2016. EGD with Dilatation and possible stent placement once fistula heals. continue high output through Fistula. has Ulcerated skin around her ostomy and as per General Surgery Doctor Tex Sawant recommended Paste before ostomy ring and do not touch ulcerated skin with the ring. asked by GI for Upper GI series with Gastrografin. Status post EGD and stent placement and PEG placement on 12.24--> EGD showed Radiation esophagitis, Esophageal stricture, Gastrocutaneous fistula, Gastric ulcers, she is in her bedroom stable with her relative with her for tomorrow probably will start tube feedings as per GI asked for Amf Mechanic - Radiation induced esophageal stricture - Esophageal dilatation done recently. - Patient will likely need EGD with dilatation and/or stent placement. - History of Non-small cell lung cancer, further management by activity therapy specialist once patient improve actual condition. - s/p chemo, radiation therapy. - Left sided pleural effusion - Etiology is not clear. Can be observed. - Currently patient is not requiring any supplemental O2. - If persistent, diagnostic thoracentesis can be considered to rule out lung cancer progression. - Electrolyte derangement replaced and following. - Hypothyroidism - continue Levothyroxine 75mcg Qday. - Hypertension - controlled. - Oral Thrush on Nystatin and Magic Mouth wash. -Anxiety to start her home medicine Tranxene 3.75 mg TID pharmacy information placed. -Anemia worsening today Hemoglobin 6.7 asked for blood transfusion of two units of PRBCs she asked for her Primary activity therapy specialist started on Iron IV. For pain was increased Fentanyl to 50 mcg per hour every three days Full code. Lovenox. Discharge Planning Will need arrangements for TPN on discharge home with C planned. Syed Mensah MD Dec 25, 2016 10:24
[2016-12-25] MEDS: POTASSIUM CHLOR 10 MEQ PREMIX 100 ML IV SCH ×3 (10:30→12:30)
[2016-12-25] MEDS ORDERED: MAGNESIUM SULFATE 1 GM PREMIX 100 ML IV ONE (10:30)
--- NOTE | 2016-12-25 10:50 | PD.ONC.PN ---
Subjective Subjective Remarks Afebrile overnight. States she feels much better today. slept well overnight. Objective Data Date Time Temp Pulse Resp B/P Pulse Ox O2 Delivery O2 Flow Rate FiO2 12/25/16 08:39 3.00 12/25/16 08:00 97.8 108 22 137/63 91 12/24/16 20:00 97.5 96 19 176/73 92 12/24/16 16:00 97.6 105 20 139/65 93 12/24/16 12:45 97.4 94 23 98 Nasal Cannula 3 12/24/16 12:30 94 23 159/77 98 Nasal Cannula 3 12/24/16 12:15 95 23 150/72 100 Nasal Cannula 3 12/24/16 12:05 98.1 96 23 153/76 95 Nasal Cannula 3 12/25/16 12/25/16 12/25/16 07:00 15:00 23:00 Intake Total 1310 ml Balance 1310 ml Result Diagram: 12/25/16 0604 12/25/16 0604 Laboratory Results Laboratory Tests Test 12/24/16 12/25/16 15:35 06:04 Hemoglobin 9.9 GM/DL 9.7 GM/DL Hematocrit 30.4 % 30.2 % White Blood Count 13.4 TH/MM3 Red Blood Count 3.46 MIL/MM3 Mean Corpuscular Volume 87.3 FL Mean Corpuscular Hemoglobin 28.2 PG Mean Corpuscular Hemoglobin 32.3 % Concent Red Cell Distribution Width 19.2 % Platelet Count 224 TH/MM3 Mean Platelet Volume 9.3 FL Neutrophils (%) (Auto) 80.5 % Lymphocytes (%) (Auto) 7.5 % Monocytes (%) (Auto) 9.1 % Eosinophils (%) (Auto) 2.3 % Basophils (%) (Auto) 0.6 % Neutrophils # (Auto) 10.8 TH/MM3 Lymphocytes # (Auto) 1.0 TH/MM3 Monocytes # (Auto) 1.2 TH/MM3 Eosinophils # (Auto) 0.3 TH/MM3 Basophils # (Auto) 0.1 TH/MM3 CBC Comment DIFF FINAL Differential Comment Sodium Level 138 MEQ/L Potassium Level 3.5 MEQ/L Chloride Level 103 MEQ/L Carbon Dioxide Level 28.0 MEQ/L Anion Gap 7 MEQ/L Blood Urea Nitrogen 14 MG/DL Creatinine 0.39 MG/DL Estimat Glomerular Filtration 159 ML/MIN Rate Random Glucose 97 MG/DL Calcium Level 7.3 MG/DL Protein Corrected Calcium 7.9 MG/DL Phosphorus Level 2.5 MG/DL Magnesium Level 1.8 MG/DL Total Protein 6.0 GM/DL Imaging Studies Last 24 hours Impressions GI Procedure 12/24/16 1119 Signed Impressions: Service Date/Time: Saturday, December 24, 2016 11:24 - CONCLUSION: 1. Esophageal stent in excellent position. Clifford Machado MD Administered Medications Medications (Trade) Dose Ordered Sig/Alla Route PRN Reason Start Time Stop Time Status Last Admin Dose Admin Sodium Chloride (NS Flush) 2 ml BID IV FLUSH 12/10/16 21:00 12/24/16 09:28 Enoxaparin Sodium (Lovenox Inj) 40 mg Q24H SQ 12/10/16 22:45 Hold 12/23/16 21:59 Amitriptyline HCl (Elavil) 25 mg HS PO 12/11/16 21:00 12/24/16 21:40 Levothyroxine Sodium (Synthroid) 75 mcg DAILY@07 PO 12/11/16 07:00 12/25/16 05:34 Lisinopril 10 mg 10 mg DAILY PO 12/11/16 09:00 12/25/16 08:21 Dextrose/Sodium Chloride 1,000 ml @ 84 mls/hr [id number] IV 12/11/16 10:30 12/25/16 08:16 Fat Emulsion Intravenous (Liposyn Iii 20% Inj) 250 ml @ 10 mls/hr Q24H IV-CENTRAL 12/11/16 20:00 12/24/16 21:39 Hydromorphone HCl 1 mg 1 mg Q3H PRN IV PUSH PAIN SCALE 5 TO 10 12/12/16 14:45 12/25/16 05:34 Multivitamins/ Folic Acid/Amino Acids/ Electrolytes/ Dextrose (Mvi-12 Inj/ Folvite Inj/ Clinimix E 09/30) 2,010.2 ml @ 50 mls/hr Q24H IV 12/13/16 20:00 12/24/16 21:39 Nystatin (Mycostatin Liq) 5 ml QID SWISH-SWAL 12/19/16 18:00 12/25/16 08:21 Miscellaneous Information 1 Q3D T-DERMAL 12/20/16 18:00 12/20/16 19:19 Guaifenesin (Robitussin Liq) 600 mg BID PO 12/21/16 09:45 12/25/16 08:20 Patient Own Medication PT OWN MED: TRANXENE-T (CLORAZEPA... TID PO 12/23/16 13:00 12/25/16 08:21 Iron Sucrose/ Sodium Chloride (Venofer Inj/NS Inj) 110 ml @ 110 mls/hr DAILY IV 12/24/16 09:00 12/26/16 09:59 12/25/16 08:17 Pantoprazole Sodium (Protonix) 40 mg Q12HR PO 12/24/16 12:45 12/25/16 08:19 Ondansetron HCl (Zofran Inj) 4 mg Q4HR PRN IV PUSH N/V 12/24/16 18:00 12/25/16 05:34 Objective Remarks GENERAL: Elderly female upright in bed, in nad. SKIN: Warm and dry. HEAD: Normocephalic. EYES: No injection or drainage. NECK: Supple, trachea midline. CARDIOVASCULAR: Regular rate and rhythm RESPIRATORY: anterior mccracken with coarse rhonchi. on O2 via NC GASTROINTESTINAL: Abdomen soft, clean bandages overlying PEG tube EXTREMITIES: No cyanosis NEUROLOGICAL: awake and alert, normal speech. Assessment/Plan Problem List: (1) Dysphagia Status: Acute Plan: currently on TPN until tolerating diet. History --presents to [facility] with recurrent symptoms from her radiation esophagitis. --Due to significant dysphagia a PEG tube was placed. --had complications from the PEG tube insertion site. --++large amount of leakage and a copious amount of purulent drainage from the PEG tube insertion site. +concern for abdominal wall fistula. --EGD and stent placement and PEG placement on 12.24-->EGD showed Radiation esophagitis, Esophageal stricture, Gastrocutaneous fistula, Gastric ulcers --upper GI series, 12/23-->No evidence of fistula or obstruction. Small diverticulum along the distal esophagus. (2) Non-small cell lung cancer (NSCLC) Status: Acute Plan: --further treatment in clinic once improvement in current conditions History: diagnosed via CT-guided biopsy in June of 2016. PET/CT scan confirmed this disease to be Stage III-B. --received concurrent chemotherapy and radiation treatments. --had a total of four cycles of chemotherapy. --Follow-up imaging showed a residual lung lesion in the left upper lobe which was 1.8 x 2.4 x 3.8 cm. The patient was recommended two additional consolidation treatments but unfortunately due to her decline in performance status, she was not able to be given this treatment. --developed swallowing difficulty. seen by GI. An EGD was performed which showed an esophageal stricture. She had dilatation but it did not improve her symptoms.She continued to have dysphagia. CT scan did not show any recurrent disease that could be impinging on the esophagus. On prior admission she was seen by GI. (3) Normocytic anemia Status: Acute Plan: monitor and transfuse as needed, given iron IV History: --patient became severely anemic with a hemoglobin in the 6 range and she was given 2 units of packed red blood cells. --no evidence of hemolysis. --likely losing blood through the GI tract. --also a component of malnutrition. --currently being seen by GI and further workup is ongoing. --ordered daily IV iron x 3 treatments. (4) Pain Status: Acute Plan: --on IV Dilaudid p.r.n. (5) Abdominal wall fistula Status: Acute Plan: --Her fistula tract is closed at the gastric end. currently getting wound care. --has also been evaluated by Surgery and there are no surgical plans at this time. Assessment 76y/o female with a history of [id number] lung cancer who was admitted to the hospital for complications from radiation esophagitis. h/o History of [id number] lung cancer, Stage III-B, status post concurrent chemotherapy and radiation treatment. Esophageal strictures status post dilatation x 4. Hypertension. Port placement. Lung biopsy. Hysterectomy. Tonsillectomy. PEG tube placement. Plan 1. monitor CBC 2. diet per GI, continue TPN until tolerating diet 3. continue PRN dilaudid. Attending Statement The exam, history, and the medical decision-making described in the above note were completed with the assistance of the mid-level provider. I reviewed and agree with the findings presented. I attest that I had a [id number] encounter with the patient on the same day, and personally performed and documented my assessment and findings in the medical record Rakel Saleem Dec 25, 2016 10:50 Montrell Montiel MD Dec 26, 2016 00:09
[2016-12-25 12:00] VITALS: BP 121/59; PULSE 101; RESP 24; TEMP 96.2; O2SAT 93
[2016-12-25 16:00] VITALS: BP 140/65; PULSE 106; RESP 20; TEMP 96.8; O2SAT 94
[2016-12-25 20:00] VITALS: BP 144/63; PULSE 106; RESP 22; TEMP 97.8; O2SAT 94
[2016-12-25] MEDS: MULTIVITAMIN INJ 10 ML, FOLIC ACID INJ 1 MG in AMINO ACID IN D5W W/ELECTROLYT 2,000 ML IV SCH ×3 (20:46)
[2016-12-25] MEDS: FAT EMULSION 20% INJ 250 ML (@10 mls/hr) IV-CENTRAL SCH (20:50)
[2016-12-25] MEDS: AMITRIPTYLINE HCL 25 MG TAB PO SCH (20:57)
[2016-12-25 21:51] VITALS: O2SAT 94
[2016-12-26] VITALS (7 sets, daily range): BP systolic 117–135; BP diastolic 56–61; PULSE 97–109; RESP 20–24; TEMP 96.6–99; O2SAT 91–96
[2016-12-26] MEDS: ONDANSETRON HCL 4 MG/2 ML VIAL IV PUSH PRN ×4 (01:27→21:13)
[2016-12-26] MEDS: HYDROmorphone HCL PF 1 MG/ML VIAL IV PUSH PRN ×4 (01:27→23:12)
[2016-12-26] MEDS: LEVOTHYROXINE SODIUM 75 MCG TAB PO SCH (05:08)
[2016-12-26] MEDS: RESP: IPRATROPIUM 0.5 MG/2.5 ML NEB NEB SCH ×6 (05:26→20:00)
--- NOTE | 2016-12-26 06:38 | HHI.PR ---
Subjective Remarks Ms. Valdovinos is a 76 year old female with a history of NSCLC, radiation esophagitis presents to the ED due to complication of the PEG tube insertion site. PEG Tube was removed recently due to large leakage. 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 now Status post EGD and clip placement. 12/20: Seen in her bedroom she has anxiety, discussed on multiple opportunities with nurse, she had some desaturation associated with anxiety, given Venlafaxine and respiratory therapy, has NG tube in place 12/21: Stable in her bedroom does not want to take Venlafaxine and wants her home medicine, her relative with her, no nausea, vomit or diarrhea continue output by Ostomy, erythema and edema and loss of continuity of skin asked by General surgery to place Paste before the ostomy bag ring and do not touch ulcerated skin. NG tube removed. 12/22: Seen in the presence of nurse Miss Saha, her Hemoglobin 6.7 the patient questioned the need for Blood transfusion when placed for her and I went to discuss wit her she wants her Primary business support specialist Doctor Fe Montiel on the case I placed a consult for Oncology. 12/23: Patient without complaint today no complaint discussed with nurse Miss Garcia she wants to be started on her medicine Tranxene 3.75 mg TID at this time as per GI specialist recommended to continue NPO, Upper GI series with gastrografin she is going for this test. 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 12/25: Seen in her bedroom in the presence of nurse the patient asked to get the nurse to explain which will be the management for her as per nurse she is been allowed to eat soft diet and complement with tube feedings, to try to stop the TPN, now she understands the plan of care recommended by Component Assembler Supervisor no nausea, vomit or diarrhea but states do not have appetite. 12/26: Again explained to the patient about the need to continue with her Diet and switch to Regular Diet, discussed with her and her relative Miss Grant Nate she will need to continue diet through her mouth and supportive care through PEG tube also try to discontinue TPN, stable not able to take her Potassium will follow new Potassium level in am tomorrow. No nausea, vomit or diarrhea. Objective Vital Signs Date Time Temp Pulse Resp B/P Pulse Ox O2 Delivery O2 Flow Rate FiO2 12/26/16 05:27 95 Nasal Cannula 3.00 12/26/16 00:00 98.6 97 22 122/58 93 12/25/16 21:51 94 Nasal Cannula 3.00 12/25/16 20:00 97.8 106 22 144/63 94 12/25/16 16:00 96.8 106 20 140/65 94 12/25/16 12:00 96.2 101 24 121/59 93 12/25/16 08:39 3.00 12/25/16 08:00 97.8 108 22 137/63 91 I/O 12/25/16 12/25/16 12/25/16 12/26/16 12/26/16 12/26/16 06:59 14:59 22:59 06:59 14:59 22:59 Intake Total 1310 ml 480 ml 2342 ml Output Total 800 ml 0 ml Balance 1310 ml -320 ml 2342 ml Intake Oral 120 ml 480 ml 780 ml IV Total 414 ml 931 ml TPN/PPN 679 ml 527 ml Lipid 97 ml 104 ml Output Urine Total 800 ml 0 ml # Voids 2 1 # Bowel Movements 0 0 0 Result Diagram: 12/25/16 0604 12/25/16 0604 Imaging Last Impressions GI Procedure 12/24/16 1119 Signed Impressions: Service Date/Time: Saturday, December 24, 2016 11:24 - CONCLUSION: 1. Esophageal stent in excellent position. Clifford Machado MD Upper GI Series 12/23/16 0000 Signed Impressions: Service Date/Time: December 09:22 - CONCLUSION: 1. No evidence of fistula or obstruction. 2. Small diverticulum along the distal esophagus. Louei Conrad MD Chest X-Ray 12/21/16 0000 Signed Impressions: Service Date/Time: Wednesday, December 21, 2016 10:41 - CONCLUSION: 1. Focal patchiness within the left apex consistent with probable known pleural based mass/nodular thickening. 2. No acute focal pulmonary infiltrate or pulmonary vascular congestion. Trey Newton MD Abdomen/Pelvis CT 12/10/16 0000 Signed Impressions: Service Date/Time: Saturday, December 10, 2016 20:17 - CONCLUSION: 1. Focal thickening of the left rectus muscle with sinus tract extending from the lumen of the stomach into the rectus, presumably at site of prior percutaneous gastrostomy. 2. Moderate-sized left pleural effusion. No evidence of ascites. 3. 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 4. Sigmoid diverticulosis without radiographic evidence of diverticulitis. Armando Harrington MD Procedures 12/17/2016 EGD with clip placement Other Results Laboratory Tests Test 12/22/16 12/23/16 12/25/16 11:22 07:00 06:04 Antibody Screen NEGATIVE Crossmatch Leukocyte-Reduced Red Blood Cells Blood Bank Comment Haptoglobin 225 MG/DL Prothrombin Time 11.1 SEC Prothromb Time International 1.0 RATIO Ratio Iron Level 31 MCG/DL Total Iron Binding Capacity 188 MCG/DL Percent Iron Saturation 16.5 % Ferritin 70 NG/ML Total Bilirubin 0.4 MG/DL Direct Bilirubin 0.1 MG/DL Indirect Bilirubin 0.3 MG/DL Lactate Dehydrogenase 133 U/L Vitamin B12 Level 692 PG/ML Blood Type B NEGATIVE Direct Antiglobulin Test NEGATIVE ([place]) White Blood Count 13.4 TH/MM3 Red Blood Count 3.46 MIL/MM3 Hemoglobin 9.7 GM/DL Hematocrit 30.2 % Mean Corpuscular Volume 87.3 FL Mean Corpuscular Hemoglobin 28.2 PG Mean Corpuscular Hemoglobin 32.3 % Concent Red Cell Distribution Width 19.2 % Platelet Count 224 TH/MM3 Mean Platelet Volume 9.3 FL Neutrophils (%) (Auto) 80.5 % Lymphocytes (%) (Auto) 7.5 % Monocytes (%) (Auto) 9.1 % Eosinophils (%) (Auto) 2.3 % Basophils (%) (Auto) 0.6 % Neutrophils # (Auto) 10.8 TH/MM3 Lymphocytes # (Auto) 1.0 TH/MM3 Monocytes # (Auto) 1.2 TH/MM3 Eosinophils # (Auto) 0.3 TH/MM3 Basophils # (Auto) 0.1 TH/MM3 CBC Comment DIFF FINAL Differential Comment Sodium Level 138 MEQ/L Potassium Level 3.5 MEQ/L Chloride Level 103 MEQ/L Carbon Dioxide Level 28.0 MEQ/L Anion Gap 7 MEQ/L Blood Urea Nitrogen 14 MG/DL Creatinine 0.39 MG/DL Estimat Glomerular Filtration 159 ML/MIN Rate Random Glucose 97 MG/DL Calcium Level 7.3 MG/DL Protein Corrected Calcium 7.9 MG/DL Phosphorus Level 2.5 MG/DL Magnesium Level 1.8 MG/DL Total Protein 6.0 GM/DL Objective Remarks GENERAL: AOx3, NAD. SKIN: Warm and dry. HEAD: Normocephalic. EYES: No scleral icterus. No injection or drainage. NECK: Supple, trachea midline. No JVD or lymphadenopathy. CARDIOVASCULAR: Regular rate and rhythm without murmurs, gallops, or rubs. RESPIRATORY: Breath sounds equal bilaterally. No accessory muscle use. Right upper chest Port in place. GASTROINTESTINAL: Abdomen soft, non-tender, nondistended. PEG tube in place. MUSCULOSKELETAL: No cyanosis, or edema. BACK: Nontender without obvious deformity. No CVA tenderness. Medications and IVs Current Medications Medications (Trade) Dose Ordered Sig/Alla Route Start Time Stop Time Status Last Admin (NS Flush) 2 ml BID IV FLUSH 12/10/16 21:00 12/25/16 20:57 (Lovenox Inj) 40 mg Q24H SQ 12/10/16 22:45 Hold 12/23/16 21:59 (Elavil) 25 mg HS PO 12/11/16 21:00 12/25/16 20:57 (Synthroid) 75 mcg DAILY@07 PO 12/11/16 07:00 12/26/16 05:08 Lisinopril 10 mg 10 mg DAILY PO 12/11/16 09:00 12/25/16 08:21 Dextrose/Sodium Chloride 1,000 ml @ 84 mls/hr [id number] IV 12/11/16 10:30 12/25/16 20:56 (Liposyn Iii 20% Inj) 250 ml @ 10 mls/hr Q24H IV-CENTRAL 12/11/16 20:00 12/25/16 20:50 Hydromorphone HCl 1 mg 1 mg Q3H PRN IV PUSH 12/12/16 14:45 12/26/16 05:08 (Mvi-12 Inj/ Folvite Inj/ Clinimix E 09/30) 2,010.2 ml @ 50 mls/hr Q24H IV 12/13/16 20:00 12/25/16 20:46 (Mycostatin Liq) 5 ml QID SWISH-SWAL 12/19/16 18:00 12/25/16 20:57 Miscellaneous Information 1 Q3D T-DERMAL 12/20/16 18:00 12/20/16 19:19 (Robitussin Liq) 600 mg BID PO 12/21/16 09:45 12/25/16 21:03 Patient Own Medication PT OWN MED: TRANXENE-T (CLORAZEPA... 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 Currently have ostomy bag. - Due to purulent drainage, WBC 13.6, we started patient on broad spectrum Abx - Vancomycin and Zosyn IV. - GI has added IV fluconazole as well. ID was consulted. All abx discontinued on 12/13/2016 per ID. - Continue TPN. - Evaluated by home health. - Continue IV Dilaudid PRN. Continue Fentanyl patch 25mcg Q3days. - Patient underwent EGD with clip placement on 12/17/2016. EGD with Dilatation and possible stent placement once fistula heals. continue high output through Fistula. has Ulcerated skin around her ostomy and as per General Surgery Doctor Tex Sawant recommended Paste before ostomy ring and do not touch ulcerated skin with the ring. asked by GI for Upper GI series with Gastrografin. Status post EGD and stent placement and PEG placement on 12.24--> EGD showed Radiation esophagitis, Esophageal stricture, Gastrocutaneous fistula, Gastric ulcers, she is in her bedroom stable with her relative with her for tomorrow probably will start tube feedings as per GI asked for Component Assembler Supervisor - Radiation induced esophageal stricture - Esophageal dilatation done recently. - Status post EGD and PEG placed. - History of Non-small cell lung cancer, further management by business support specialist once patient improve actual condition. - s/p chemo, radiation therapy. - Left sided pleural effusion - Etiology is not clear. Can be observed. - Currently patient is not requiring any supplemental O2. - If persistent, diagnostic thoracentesis can be considered to rule out lung cancer progression. - Electrolyte was recommended potassium IV yesterday but the patient was not able to tolerate it, will re draw in am tomorrow and follow. - Hypothyroidism - continue Levothyroxine 75mcg Qday. - Hypertension - controlled. - Oral Thrush on Nystatin Improving. -Anxiety to start her home medicine Tranxene 3.75 mg TID pharmacy information placed. -Anemia worsening today Hemoglobin 6.7 asked for blood transfusion of two units of PRBCs she asked for her Primary business support specialist started on Iron IV. Full code. Lovenox. Discussed with patient, her Relative Miss Juanita Sullivan and nurse Miss Mathis continue Regular diet and follow labs in am tomorrow Discharge planning started. Discharge Planning follow Clinical Lab Technologist recommendations for discharge will follow in am tomorrow for discharge. Syed Mensah MD Dec 26, 2016 06:38
[2016-12-26] MEDS: CLORAZEPATE PO SCH ×3 (08:23→18:00)
[2016-12-26] MEDS: DEXT 5%-NACL 0.9% 1000 ML INJ 1,000 ML IV SCH (08:23)
[2016-12-26] MEDS: [UNRECOGNIZED DRUG - OTHER] PO SCH ×3 (08:23→18:00)
[2016-12-26] MEDS: PANTOPRAZOLE SOD 40 MG DELAYED RELEASE TAB PO SCH ×2 (08:23→21:12)
[2016-12-26] MEDS: NYSTATIN SUSP 500,000 U/5 ML CUP SWISH-SWAL SCH ×4 (08:23→21:12)
[2016-12-26] MEDS: guaiFENesin SOLUTION 200 MG/10 ML CUP PO SCH ×2 (08:23→21:00)
[2016-12-26] MEDS: LISINOPRIL 10 MG TAB PO SCH (08:23)
[2016-12-26] MEDS: IRON SUCROSE INJ 200 MG in SODIUM CHLORIDE 0.9% INJ 100 ML IV SCH (08:23)
[2016-12-26] MEDS: SODIUM CHLORIDE 0.9% FLUSH 10 ML FLUSH IV FLUSH SCH ×2 (09:00→21:15)
--- NOTE | 2016-12-26 15:12 | PD.ONC.PN ---
Subjective Subjective Remarks Afebrile overnight. remains dyspneic. persistent pain behind right shoulder. pain improved with dilaudid but states IV dilaudid wears off quickly. did not like fentanyl as it made her feel loopy patient seen at 10am. late entry d/t [facility] downtime Objective Data Date Time Temp Pulse Resp B/P (MAP) Pulse Ox O2 Delivery O2 Flow Rate FiO2 12/26/16 12:00 96.6 99 22 123/56 (78) 94 12/26/16 08:00 99.0 99 20 132/59 (83) 91 12/26/16 05:27 95 Nasal Cannula 3.00 12/26/16 00:00 98.6 97 22 122/58 (79) 93 12/25/16 21:51 94 Nasal Cannula 3.00 12/25/16 20:00 97.8 106 22 144/63 (90) 94 12/25/16 16:00 96.8 106 20 140/65 (90) 94 12/26/16 12/26/16 12/26/16 07:00 15:00 23:00 Intake Total 1181 ml Balance 1181 ml Result Diagram: 12/25/16 0604 12/25/16 0604 Administered Medications Medications (Trade) Dose Ordered Sig/Alla Route PRN Reason Start Time Stop Time Status Last Admin Dose Admin Sodium Chloride (NS Flush) 2 ml BID IV FLUSH 12/10/16 21:00 12/25/16 20:57 Enoxaparin Sodium (Lovenox Inj) 40 mg Q24H SQ 12/10/16 22:45 Future Hold 12/23/16 21:59 Amitriptyline HCl (Elavil) 25 mg HS PO 12/11/16 21:00 12/25/16 20:57 Levothyroxine Sodium (Synthroid) 75 mcg DAILY@07 PO 12/11/16 07:00 12/26/16 05:08 Lisinopril (Prinivil) 10 mg DAILY PO 12/11/16 09:00 12/26/16 08:23 Dextrose/Sodium Chloride 1,000 ml @ 84 mls/hr [id number] IV 12/11/16 10:30 12/26/16 08:23 Fat Emulsion Intravenous 250 ml @ 10 mls/hr Q24H IV-CENTRAL 12/11/16 20:00 12/25/16 20:50 Hydromorphone HCl (Dilaudid Pf Inj) 1 mg Q3H PRN IV PUSH PAIN SCALE 5 TO 10 12/12/16 14:45 12/26/16 05:08 Multivitamins 10 ml/Folic Acid 1 mg/Amino Acids/ Electrolytes/ Dextrose 2,010.2 ml @ 50 mls/hr Q24H IV 12/13/16 20:00 12/25/16 20:46 Nystatin (Mycostatin Liq) 5 ml QID SWISH-SWAL 12/19/16 18:00 12/26/16 12:40 Ipratropium [place] (Atrovent Neb) 0.5 mg Q4HR NEB NEB 12/20/16 20:00 12/26/16 05:26 Miscellaneous Information 1 Q3D T-DERMAL 12/20/16 18:00 12/20/16 19:19 Guaifenesin (Robitussin Liq) 600 mg BID PO 12/21/16 09:45 12/26/16 08:23 Patient Own Medication PT OWN MED: TRANXENE-T (CLORAZEPA... TID PO 12/23/16 13:00 Future hold 12/26/16 12:40 Pantoprazole Sodium (Protonix) 40 mg Q12HR PO 12/24/16 12:45 12/26/16 08:23 Ondansetron HCl (Zofran Inj) 4 mg Q4HR PRN IV PUSH N/V 12/24/16 18:00 12/26/16 05:08 Objective Remarks GENERAL: Elderly female upright in bed, appears dyspneic. SKIN: Warm and dry. HEAD: Normocephalic. EYES: No injection or drainage. NECK: Supple, trachea midline. CARDIOVASCULAR: Regular rate and rhythm RESPIRATORY: anterior mccracken with coarse rhonchi. on 3L O2 via NC GASTROINTESTINAL: Abdomen soft, non-distended. PEG tube clamped. bandages in place are clean EXTREMITIES: No cyanosis NEUROLOGICAL: awake and alert, normal speech. Assessment/Plan Problem List: (1) Dysphagia ICD Codes: R13.10 - Dysphagia, unspecified Status: Acute Plan: currently on TPN until tolerating diet. History --presents to [facility] with recurrent symptoms from her radiation esophagitis. --Due to significant dysphagia a PEG tube was placed. --had complications from the PEG tube insertion site. --++large amount of leakage and a copious amount of purulent drainage from the PEG tube insertion site. +concern for abdominal wall fistula. --EGD and stent placement and PEG placement on 12.24-->EGD showed Radiation esophagitis, Esophageal stricture, Gastrocutaneous fistula, Gastric ulcers --upper GI series, 12/23-->No evidence of fistula or obstruction. Small diverticulum along the distal esophagus. (2) Non-small cell lung cancer (NSCLC) ICD Codes: C34.90 - Malignant neoplasm of unspecified part of unspecified bronchus or lung Status: Acute Plan: --further treatment in clinic once improvement in current conditions History: diagnosed via CT-guided biopsy in June of 2016. PET/CT scan confirmed this disease to be Stage III-B. --received concurrent chemotherapy and radiation treatments. --had a total of four cycles of chemotherapy. --Follow-up imaging showed a residual lung lesion in the left upper lobe which was 1.8 x 2.4 x 3.8 cm. The patient was recommended two additional consolidation treatments but unfortunately due to her decline in performance status, she was not able to be given this treatment. (3) Normocytic anemia ICD Codes: D64.9 - Anemia, unspecified Status: Acute Plan: monitor and transfuse as needed, given iron IV History: --patient became severely anemic with a hemoglobin in the 6 range and she was given 2 units of packed red blood cells. --no evidence of hemolysis. --likely losing blood through the GI tract. --also a component of malnutrition. --currently being seen by GI and further workup is ongoing. --ordered daily IV iron x 3 treatments. (4) Pain ICD Codes: R52 - Pain, unspecified Status: Acute Plan: --on IV Dilaudid p.r.n. 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 currently getting wound care. --has also been evaluated by Surgery and there are no surgical plans at this time. Assessment 76y/o female with a history of [id number] lung cancer who was admitted to the hospital for complications from radiation esophagitis. h/o History of [id number] lung cancer, Stage III-B, status post concurrent chemotherapy and radiation treatment. Esophageal strictures status post dilatation x 4. Hypertension. Port placement. Lung biopsy. Hysterectomy. Tonsillectomy. PEG tube placement. Plan 1. start Oramorph 30mg PO BID as long-acting pain medication. discussed with patient rationale behind using long-acting pain medications. will titrate up over the next several days in preparation for discharge 2. continue TPN until tolerating diet. will stop additional IVF as patient has had positive fluid balances recently. 3. monitor CBC Attending Statement The exam, history, and the medical decision-making described in the above note were completed with the assistance of the mid-level provider. I reviewed and agree with the findings presented. I attest that I had a [id number] encounter with the patient on the same day, and personally performed and documented my assessment and findings in the medical record. Pain not adequately controlled. Fentanyl patch not tolerable start long acting morphine with breakthrough oxycodone stop IV fluids long discussion with the fiona carver rn overnight events reviewed Rakel Saleem Dec 26, 2016 15:12 Montrell Montiel MD Dec 26, 2016 17:28
[2016-12-26] MEDS: REMOVE OLD DURAGESIC (FENTANYL) PATCH T-DERMAL SCH (18:00)
[2016-12-26] MEDS: AMITRIPTYLINE HCL 25 MG TAB PO SCH (21:11)
[2016-12-26] MEDS: MORPHINE SULFATE 30 MG CONTROLLED RELEASE TAB PO SCH (21:12)
[2016-12-26] MEDS: FAT EMULSION 20% INJ 250 ML (@10 mls/hr) IV-CENTRAL SCH (21:15)
[2016-12-26] MEDS: MULTIVITAMIN INJ 10 ML, FOLIC ACID INJ 1 MG in AMINO ACID IN D5W W/ELECTROLYT 2,000 ML IV SCH ×3 (21:16)
[2016-12-27] VITALS (8 sets, daily range): BP systolic 118–148; BP diastolic 57–68; PULSE 100–109; RESP 20–24; TEMP 96.6–98.3; O2SAT 92–98
[2016-12-27] MEDS: RESP: IPRATROPIUM 0.5 MG/2.5 ML NEB NEB SCH ×6 (04:00→19:36)
[2016-12-27] MEDS: LEVOTHYROXINE SODIUM 75 MCG TAB PO SCH (05:32)
[2016-12-27 07:14] LABS: BASOPHIL # 0.1 TH/MM3 (0-0.2); BASOPHIL % 0.5 % (0.0-2.0); EOSINOPHIL # 0.4 TH/MM3 (0-0.4); EOSINOPHIL % 3.7 % (0.0-4.0); HEMATOCRIT 26.4 % (35.0-46.0); HEMO FLAGS DIFF FINAL; MEAN CELL VOLUME 88.4 FL (80.0-100.0); MEAN CORPUSCULAR HGB CONC 32.8 % (32.0-36.0); MONO % 8.5 % (0.0-8.0); NEUT % 78.3 % (16.0-70.0); PLATELET COUNT 196 TH/MM3 (150-450); RED BLOOD COUNT 2.99 MIL/MM3 (4.00-5.30); RED CELL DISTRIBUTION WIDTH 19.5 % (11.6-17.2); WHITE BLOOD COUNT 11.5 TH/MM3 (4.0-11.0)
[2016-12-27 07:30] LABS: ALT (GPT) 12 U/L (10-53); ANION GAP 7 MEQ/L (5-15); AST (GOT) 15 U/L (15-37); BICARBONATE 28.3 MEQ/L (21.0-32.0); BLOOD UREA NITROGEN 12 MG/DL (7-18); CHLORIDE 104 MEQ/L (98-107); GLOMERULAR FILTRATION RATE 164 ML/MIN (>89); MAGNESIUM 1.9 MG/DL (1.5-2.5); POTASSIUM 3.2 MEQ/L (3.5-5.1); SODIUM (NA) 139 MEQ/L (136-145)
[2016-12-27 07:32] LABS: ALKALINE PHOSPHATASE 102 U/L (45-117); TOTAL BILIRUBIN ADULT 0.4 MG/DL (0.2-1.0)
--- NOTE | 2016-12-27 08:29 | HHI.PR ---
Subjective Remarks Ms. Valdovinos is a 76 year old female with a history of NSCLC, radiation esophagitis presents to the ED due to complication of the PEG tube insertion site. PEG Tube was removed recently due to large leakage. 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 now Status post EGD and clip placement. 12/20: Seen in her bedroom she has anxiety, discussed on multiple opportunities with nurse, she had some desaturation associated with anxiety, given Venlafaxine and respiratory therapy, has NG tube in place 12/21: Stable in her bedroom does not want to take Venlafaxine and wants her home medicine, her relative with her, no nausea, vomit or diarrhea continue output by Ostomy, erythema and edema and loss of continuity of skin asked by General surgery to place Paste before the ostomy bag ring and do not touch ulcerated skin. NG tube removed. 12/22: Seen in the presence of nurse Miss Saha, her Hemoglobin 6.7 the patient questioned the need for Blood transfusion when placed for her and I went to discuss wit her she wants her Primary prescription benefit specialist Doctor Fe Montiel on the case I placed a consult for Oncology. 12/23: Patient without complaint today no complaint discussed with nurse Miss Garcia she wants to be started on her medicine Tranxene 3.75 mg TID at this time as per GI specialist recommended to continue NPO, Upper GI series with gastrografin she is going for this test. 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 12/25: Seen in her bedroom in the presence of nurse the patient asked to get the nurse to explain which will be the management for her as per nurse she is been allowed to eat soft diet and complement with tube feedings, to try to stop the TPN, now she understands the plan of care recommended by [facility]. 12/26: Again explained to the patient about the need to continue with her Diet and switch to Regular Diet, discussed with her and her relative Miss Juanita Sullivan she will need to continue diet through her mouth and supportive care through PEG tube also try to discontinue TPN, stable not able to take her Potassium will follow new Potassium level in am tomorrow. 12/27: Patient and her daughter in the room Miss Juanita Sullivan, the PEG tube will be used only to help the fistulous tract to close, not for feeding purposes , no nausea, vomit or diarrhea, Refuse Potassium replacement IV and also by mouth. Objective Vital Signs Date Time Temp Pulse Resp B/P (MAP) Pulse Ox O2 Delivery O2 Flow Rate FiO2 12/27/16 05:56 94 Nasal Cannula 3.00 12/27/16 00:00 97.9 103 22 131/60 (83) 93 12/26/16 23:50 18 12/26/16 22:30 18 12/26/16 20:00 98.2 107 22 135/61 (85) 95 12/26/16 16:49 94 Nasal Cannula 3.00 12/26/16 16:00 98.0 109 24 117/57 (77) 96 12/26/16 12:00 96.6 99 22 123/56 (78) 94 I/O 12/26/16 12/26/16 12/26/16 12/27/16 12/27/16 12/27/16 07:00 15:00 23:00 07:00 15:00 23:00 Intake Total 1181 ml 278 ml 3432.2 ml 120 ml Output Total 1000 ml Balance 1181 ml 278 ml 2432.2 ml 120 ml Intake Oral 120 ml 600 ml 120 ml IV Total 575 ml 278 ml 2010.2 ml TPN/PPN 405 ml 679 ml Lipid 81 ml 143 ml Output Urine Total 1000 ml # Voids 2 2 3 # Bowel Movements 0 2 Result Diagram: 12/27/16 0645 12/27/16 0645 Imaging Last Impressions GI Procedure 12/24/16 1119 Signed Impressions: Service Date/Time: Saturday, December 24, 2016 11:24 - CONCLUSION: 1. Esophageal stent in excellent position. Clifford Machado MD Upper GI Series 12/23/16 0000 Signed Impressions: Service Date/Time: December 09:22 - CONCLUSION: 1. No evidence of fistula or obstruction. 2. Small diverticulum along the distal esophagus. Louie Conrad MD Chest X-Ray 12/21/16 0000 Signed Impressions: Service Date/Time: Wednesday, December 21, 2016 10:41 - CONCLUSION: 1. Focal patchiness within the left apex consistent with probable known pleural based mass/nodular thickening. 2. No acute focal pulmonary infiltrate or pulmonary vascular congestion. Trey Newton MD Abdomen/Pelvis CT 12/10/16 0000 Signed Impressions: Service Date/Time: Saturday, December 10, 2016 20:17 - CONCLUSION: 1. Focal thickening of the left rectus muscle with sinus tract extending from the lumen of the stomach into the rectus, presumably at site of prior percutaneous gastrostomy. 2. Moderate-sized left pleural effusion. No evidence of ascites. 3. 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 4. Sigmoid diverticulosis without radiographic evidence of diverticulitis. Armando Harrington MD Procedures 12/17/2016 EGD with clip placement Other Results Laboratory Tests Test 12/10/16 13:00 12/11/16 05:16 12/12/16 07:20 12/23/16 07:00 Activated Partial Thromboplast Time 27.9 SEC Lipase 48 U/L Lactic Acid Level 1.3 mmol/L Differential Total Cells Counted 100 Neutrophils % (Manual) 80 % Band Neutrophils % 2 % Lymphocytes % 8 % Monocytes % 3 % Eosinophils % 5 % Neutrophils # (Manual) 9.5 TH/MM3 Metamyelocytes 2 % Platelet Estimate NORMAL Platelet Morphology Comment NORMAL Haptoglobin 225 MG/DL Prothrombin Time 11.1 SEC Prothromb Time International Ratio 1.0 RATIO Iron Level 31 MCG/DL Total Iron Binding Capacity 188 MCG/DL Percent Iron Saturation 16.5 % Ferritin 70 NG/ML Direct Bilirubin 0.1 MG/DL Indirect Bilirubin 0.3 MG/DL Lactate Dehydrogenase 133 U/L Vitamin B12 Level 692 PG/ML Test 12/25/16 06:04 12/25/16 12:30 12/27/16 06:45 Protein Corrected Calcium 7.9 MG/DL White Blood Count 11.5 TH/MM3 Red Blood Count 2.99 MIL/MM3 Hemoglobin 8.7 GM/DL Hematocrit 26.4 % Mean Corpuscular Volume 88.4 FL Mean Corpuscular Hemoglobin 29.0 PG Mean Corpuscular Hemoglobin Concent 32.8 % Red Cell Distribution Width 19.5 % Platelet Count 196 TH/MM3 Mean Platelet Volume 9.4 FL Neutrophils (%) (Auto) 78.3 % Lymphocytes (%) (Auto) 9.0 % Monocytes (%) (Auto) 8.5 % Eosinophils (%) (Auto) 3.7 % Basophils (%) (Auto) 0.5 % Neutrophils # (Auto) 9.0 TH/MM3 Lymphocytes # (Auto) 1.0 TH/MM3 Monocytes # (Auto) 1.0 TH/MM3 Eosinophils # (Auto) 0.4 TH/MM3 Basophils # (Auto) 0.1 TH/MM3 CBC Comment DIFF FINAL Differential Comment Blood Urea Nitrogen 12 MG/DL Creatinine 0.38 MG/DL Random Glucose 95 MG/DL Total Protein 5.6 GM/DL Albumin 1.7 GM/DL Calcium Level 7.9 MG/DL Phosphorus Level 2.5 MG/DL Magnesium Level 1.9 MG/DL Alkaline Phosphatase 102 U/L Aspartate Amino Transf (AST/SGOT) 15 U/L Alanine Aminotransferase (ALT/SGPT) 12 U/L Total Bilirubin 0.4 MG/DL Sodium Level 139 MEQ/L Potassium Level 3.2 MEQ/L Chloride Level 104 MEQ/L Carbon Dioxide Level 28.3 MEQ/L Anion Gap 7 MEQ/L Estimat Glomerular Filtration Rate 164 ML/MIN Objective Remarks GENERAL: AOx3, NAD. SKIN: Warm and dry. HEAD: Normocephalic. EYES: No scleral icterus. No injection or drainage. NECK: Supple, trachea midline. No JVD or lymphadenopathy. CARDIOVASCULAR: Regular rate and rhythm without murmurs, gallops, or rubs. RESPIRATORY: Breath sounds equal bilaterally. No accessory muscle use. Right upper chest Port in place. GASTROINTESTINAL: Abdomen soft, non-tender, nondistended. PEG tube in place. MUSCULOSKELETAL: No cyanosis, or edema. BACK: Nontender without obvious deformity. No CVA tenderness. Medications and IVs Current Medications Medications (Trade) Dose Ordered Sig/Alla Route Start Time Stop Time Status Last Admin (NS Flush) 2 ml BID IV FLUSH 12/10/16 21:00 12/26/16 21:15 (Lovenox Inj) 40 mg Q24H SQ 12/10/16 22:45 Future Hold 12/23/16 21:59 (Elavil) 25 mg HS PO 12/11/16 21:00 12/26/16 21:11 (Synthroid) 75 mcg DAILY@07 PO 12/11/16 07:00 12/27/16 05:32 (Prinivil) 10 mg DAILY PO 12/11/16 09:00 12/26/16 08:23 Fat Emulsion Intravenous 250 ml @ 10 mls/hr Q24H IV-CENTRAL 12/11/16 20:00 12/26/16 21:15 (Dilaudid Pf Inj) 1 mg Q3H PRN IV PUSH 12/12/16 14:45 12/26/16 23:12 Multivitamins 10 ml/Folic Acid 1 mg/Amino Acids/ Electrolytes/ Dextrose 2,010.2 ml @ 50 mls/hr Q24H IV 12/13/16 20:00 12/26/16 21:16 (Mycostatin Liq) 5 ml QID SWISH-SWAL 12/19/16 18:00 12/26/16 21:12 (Atrovent Neb) 0.5 mg Q4HR NEB NEB 12/20/16 20:00 12/26/16 16:46 Miscellaneous Information 1 Q3D T-DERMAL 12/20/16 18:00 12/26/16 18:00 (Robitussin Liq) 600 mg BID PO 12/21/16 09:45 12/26/16 08:23 Patient Own Medication PT OWN MED: TRANXENE-T (CLORAZEPA... TID PO 12/23/16 13:00 Future hold 12/26/16 18:00 (Protonix) 40 mg Q12HR PO 12/24/16 12:45 12/26/16 21:12 (Zofran Inj) 4 mg Q4HR PRN IV PUSH 12/24/16 18:00 12/26/16 21:13 (Oramorph Sr) 30 mg Q12HR PO 12/26/16 21:00 12/26/16 21:12 A/P Problem List: (1) Abdominal wall sinus ICD Code: K63.2 - Fistula of intestine Status: Acute (2) Radiation-induced esophageal stricture ICD Code: K22.2 - Esophageal obstruction Status: Acute (3) Non-small cell lung cancer (NSCLC) ICD Code: C34.90 - Malignant neoplasm of unspecified part of unspecified bronchus or lung Status: Acute (4) Dysphagia ICD Code: R13.10 - Dysphagia, unspecified Status: Acute (5) Esophageal stricture ICD Code: K22.2 - Esophageal obstruction Status: Acute Assessment and Plan - 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 Currently have ostomy bag. - Due to purulent drainage, WBC 13.6, we started patient on broad spectrum Abx - Vancomycin and Zosyn IV. - GI has added IV fluconazole as well. ID was consulted. All abx discontinued on 12/13/2016 per ID. - Continue TPN. - Evaluated by home health. - Continue IV Dilaudid PRN. Continue Fentanyl patch 25mcg Q3days. - Patient underwent EGD with clip placement on 12/17/2016. EGD with Dilatation and possible stent placement once fistula heals. continue high output through Fistula. has Ulcerated skin around her ostomy and as per General Surgery Doctor Tex Sawant recommended Paste before ostomy ring and do not touch ulcerated skin with the ring. asked by GI for Upper GI series with Gastrografin. Status post EGD and stent placement and PEG placement on 12.24--> EGD showed Radiation esophagitis, Esophageal stricture, Gastrocutaneous fistula, Gastric ulcers, her PEG tube is been placed for Gastrocutaneous fistula closure not for feeding purposes - Radiation induced esophageal stricture - Esophageal dilatation done recently. - Status post EGD and PEG placed. - History of Non-small cell lung cancer, further management by prescription benefit specialist once patient improve actual condition. - s/p chemo, radiation therapy. - Left sided pleural effusion - Etiology is not clear. Can be observed. - Currently patient is not requiring any supplemental O2. - If persistent, diagnostic thoracentesis can be considered to rule out lung cancer progression. - Electrolyte derangement Hypokalemia the patient REFUSED Potassium replacement IV or By mouth - Hypothyroidism - continue Levothyroxine 75mcg Qday. - Hypertension - controlled. - Oral Thrush on Nystatin Improving. -Anxiety to start her home medicine Tranxene 3.75 mg TID pharmacy information placed. -Anemia worsening today Hemoglobin 6.7 asked for blood transfusion of two units of PRBCs she asked for her Primary prescription benefit specialist started on Iron IV. Full code. Lovenox. Discussed with patient, her Daughter Miss Juanita Sullivan continue Regular diet Discharge Planning follow [employer] recommendations for discharge will follow in am tomorrow for discharge. Syed Mensah MD Dec 27, 2016 08:29
[2016-12-27] MEDS: SODIUM CHLORIDE 0.9% FLUSH 10 ML FLUSH IV FLUSH SCH ×2 (09:00→20:44)
[2016-12-27] MEDS: PANTOPRAZOLE SOD 40 MG DELAYED RELEASE TAB PO SCH ×2 (09:00→20:42)
[2016-12-27] MEDS: LISINOPRIL 10 MG TAB PO SCH (09:38)
[2016-12-27] MEDS: NYSTATIN SUSP 500,000 U/5 ML CUP SWISH-SWAL SCH ×4 (09:38→20:42)
[2016-12-27] MEDS: MORPHINE SULFATE 30 MG CONTROLLED RELEASE TAB PO SCH ×2 (09:38→20:43)
[2016-12-27] MEDS: guaiFENesin SOLUTION 200 MG/10 ML CUP PO SCH ×2 (09:38→20:41)
[2016-12-27] MEDS: [UNRECOGNIZED DRUG - OTHER] PO SCH ×3 (09:52→18:35)
[2016-12-27] MEDS: CLORAZEPATE PO SCH ×3 (09:52→18:35)
--- NOTE | 2016-12-27 14:12 | PD.WCN.NOT ---
Wound Consult Description: Medial upper L abdomen Communicated with: NARCISO Thao and call placed to Doctor Bernarda for orders. Spoke with JAYME Patel and she is in agreement with recommendations. Recommendation: Please encrust patient for skin irritation around PEG tube by applying stoma powder to irritation and wiping off and then applying skin prep and letting dry before repeating process a second time.Please cover wound around PEG tube with Maxorb AG loosely packed in wound bed. Cover with dry 4x4 drain sponge. Secure dressings with ABD pad and Medfix tape. Change dressing as needed. Additional Information: Patient seen on for evaluation of fistula management to abdomen. Attempted to see patient on Tuesday for assessment and recommendations. Patient had gone to surgery for for esophageal stent placement and PEG tube placement over previous peg tube and fistula site.Removed ABD pad, tape, and gauze pad in place around PEG tube to reveal wound around PEG tube . Wound bed is 100% pale red granulation tissue and with minimal serous exudate that is with out odor.Wound measures ~7cm x ~7cm x ~1cm.Old gauze pads noted with minimal green gastric secretions. Dressing was changed last night. Periwound is noted with mild erythema and irritation.Cleansed wound around PEG tube with normal saline. Applied Maxorb II (calcium alginate) loosely paced into wound bed around PEG tube site. Encrusted periwound with stoma powder and skin prep to protect skin.Covered with dry 4x4 gauze pads and ABD pad. Secured dressing with medifix tape. Kaylan Perez [facility] Dec 27, 2016 14:12
--- NOTE | 2016-12-27 17:24 | HHI.GIFU ---
Subjective Remarks Resting in bed. Swallowing without difficulty- tolerating peanut butter toast, applesauce, yogurt. No n/v. States drainage from site decreasing, but drsg was recently changed and she refused to let me look at it. (Venecia Patel) Objective Vitals I&O Vital Signs Date Time Temp Pulse Resp B/P (MAP) Pulse Ox O2 Delivery O2 Flow Rate FiO2 12/27/16 12:00 98.3 109 23 127/61 (83) 92 12/27/16 08:57 96 Nasal Cannula 3.00 12/27/16 08:00 98.1 101 24 118/57 (77) 94 12/27/16 05:56 94 Nasal Cannula 3.00 12/27/16 00:00 97.9 103 22 131/60 (83) 93 12/26/16 23:50 18 12/26/16 22:30 18 12/26/16 20:00 98.2 107 22 135/61 (85) 95 I/O 12/26/16 12/26/16 12/26/16 12/27/16 12/27/16 12/27/16 07:00 15:00 23:00 07:00 15:00 23:00 Intake Total 1181 ml 278 ml 3432.2 ml 120 ml Output Total 1000 ml Balance 1181 ml 278 ml 2432.2 ml 120 ml Intake Oral 120 ml 600 ml 120 ml IV Total 575 ml 278 ml 2010.2 ml TPN/PPN 405 ml 679 ml Lipid 81 ml 143 ml Output Urine Total 1000 ml # Voids 2 2 3 # Bowel Movements 0 2 Laboratory Laboratory Tests Test 12/27/16 06:45 White Blood Count 11.5 Red Blood Count 2.99 Hemoglobin 8.7 Hematocrit 26.4 Mean Corpuscular Volume 88.4 Mean Corpuscular Hemoglobin 29.0 Mean Corpuscular Hemoglobin Concent 32.8 Red Cell Distribution Width 19.5 Platelet Count 196 Mean Platelet Volume 9.4 Neutrophils (%) (Auto) 78.3 Lymphocytes (%) (Auto) 9.0 Monocytes (%) (Auto) 8.5 Eosinophils (%) (Auto) 3.7 Basophils (%) (Auto) 0.5 Neutrophils # (Auto) 9.0 Lymphocytes # (Auto) 1.0 Monocytes # (Auto) 1.0 Eosinophils # (Auto) 0.4 Basophils # (Auto) 0.1 CBC Comment DIFF FINAL Differential Comment Blood Urea Nitrogen 12 Creatinine 0.38 Random Glucose 95 Total Protein 5.6 Albumin 1.7 Calcium Level 7.9 Phosphorus Level 2.5 Magnesium Level 1.9 Alkaline Phosphatase 102 Aspartate Amino Transf (AST/SGOT) 15 Alanine Aminotransferase (ALT/SGPT) 12 Total Bilirubin 0.4 Sodium Level 139 Potassium Level 3.2 Chloride Level 104 Carbon Dioxide Level 28.3 Anion Gap 7 Estimat Glomerular Filtration Rate 164 Date/Time Source Procedure Growth Status 12/11/16 17:57 Fluid Other Gram Stain - Final Complete 12/11/16 17:57 Fluid Other Body Fluid Culture - Final NO GROWTH IN 72 HRS.--AEROBICALLY OR ... Complete 12/10/16 15:15 Wound Drainage Gram Stain - Final Complete 12/10/16 15:15 Wound Culture - Final Lactobacillus Species Complete Imaging Last Impressions GI Procedure 12/24/16 1119 Signed Impressions: Service Date/Time: Saturday, December 24, 2016 11:24 - CONCLUSION: 1. Esophageal stent in excellent position. Clifford Machado MD Upper GI Series 12/23/16 0000 Signed Impressions: Service Date/Time: December 09:22 - CONCLUSION: 1. No evidence of fistula or obstruction. 2. Small diverticulum along the distal esophagus. Louie Conrad MD Chest X-Ray 12/21/16 0000 Signed Impressions: Service Date/Time: Wednesday, December 21, 2016 10:41 - CONCLUSION: 1. Focal patchiness within the left apex consistent with probable known pleural based mass/nodular thickening. 2. No acute focal pulmonary infiltrate or pulmonary vascular congestion. Trey Newton MD Abdomen/Pelvis CT 12/10/16 0000 Signed Impressions: Service Date/Time: Saturday, December 10, 2016 20:17 - CONCLUSION: 1. Focal thickening of the left rectus muscle with sinus tract extending from the lumen of the stomach into the rectus, presumably at site of prior percutaneous gastrostomy. 2. Moderate-sized left pleural effusion. No evidence of ascites. 3. 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 4. Sigmoid diverticulosis without radiographic evidence of diverticulitis. Armando Harrington MD Physical Exam HEENT: Normocephalic; atraumatic CHEST: Resp shallow/even. CARDIAC: RRR. ABDOMEN: Soft, nondistended, mild tenderness at drainage bag site; no hepatosplenomegaly; bowel sounds are present in all four quadrants. PEG tube clamped, drsg d/i EXTREMITIES: No clubbing, cyanosis, or edema. SKIN: Normal; no rash; no jaundice. COUNTER CASER: No focal deficits; alert and oriented times three. (Venecia Patel) Assessment and Plan Plan ASSESSMENT: - S/P Esophageal stenting, 10 CM 22 F successfully, History of Dysphagia, Esophageal strictures secondary to radiation esophagitis. S/P EGD with esophageal stent placement and PEG placement (12/24/16)-----> Radiation esophagitis, Esophageal stricture, Gastrocutaneous fistula, Gastric ulcers. PPI, TPN. She is tolerating some peanut butter toast, but still only taking small amounts of PO. States the food is not getting caught. Will try to increase po intake and will wean TPN once taking adequate po. 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 Pt came to office on 12/08 for peg tube site pain and drainage. The tube was noted to be dislodged and was completely removed. The incision was packed and she was given Augmentin suspension. She reports that since the tube was removed, it has been draining copious amounts of purulent She was seen in office today (12/10/16) with significant leakage from the peg tube site, with moderate erythema noted surrounding the site. She was sent to the hospital for IV antibiotics, TPN, and possible I&D. She denies fevers/chills. Abdomen/Pelvis CT (12/10/16)----> 1. Focal thickening of the left rectus muscle with sinus tract extending from the lumen of the stomach into the rectus, presumably at site of prior percutaneous gastrostomy. 2. Moderate-sized left pleural effusion. No evidence of ascites. 3. 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 4. Sigmoid diverticulosis without radiographic evidence of diverticulitis. Fistula site with drainage bag with large amount of dark drainage. NPO. TPN. Wound culture with lactobacillus species. Fluid with no growth x 48 hours. Site itself much improved- not red or indurated. S/P EGD with clip placement (12/17/16)----> Mid-esophageal radiation esophagitis with stricturing but I was able to pass the scope with ease, stomach there was a large opening and on the anterior wall of the stomach that connects to the skin and I cauterized the track with silver nitrate and I applied 4 clips on the inside at the opening of the fistula in hopes to reduce the amount of gastric juice flow and an NG tube was placed so that we can suction gastric contents. The duodenum was normal. The NGT was removed. Her gastric drainage is decreasing from the fistula. Upper GI Series (12/23/16 )----> 1. No evidence of fistula or obstruction. 2. Small diverticulum along the distal esophagus. S/P Rpt. EGD with stent placement/peg placement as above. - Cough/Hypoxia. Improved. CXR (12/21/16) 1. Focal patchiness within the left apex consistent with probable known pleural based mass/nodular thickening. 2. No acute focal pulmonary infiltrate or pulmonary vascular congestion. - Leukocytosis secondary to above. WBC 11.5 - GERD. PPI - Anemia, with drop in Hgb. HH 8.7/26.4 Hematology following, hemolysis workup in progress. 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 S/P chemotherapy and radiotherapy, completed on 09/01/16. PET scan scheduled as outpatient. - Hypokalemia, HTN, Hypothyroidism, COPD, Hyperlipidemia, Macular degeneration per attending. PLAN: - Soft diet - Record meal percentages - Will wean TPN once taking adequate po - PPI with BID dosing - Supportive care - Rpt. EGD in 1 month to remove esophageal stent and possibly remove the PEG tube at that point in time - Pt seen and examined by Dr. Paulson and myself and this note is written on his behalf (Venecia Patel) Physician Comments Seen and examined, plan as above. Will follow up with you. (Brent Paulson MD) Venecia Patel Dec 27, 2016 17:24 Brent Paulson MD Dec 27, 2016 18:29
[2016-12-27] MEDS: AMITRIPTYLINE HCL 25 MG TAB PO SCH (20:42)
[2016-12-27] MEDS: FAT EMULSION 20% INJ 250 ML (@10 mls/hr) IV-CENTRAL SCH (20:44)
[2016-12-27] MEDS: MULTIVITAMIN INJ 10 ML, FOLIC ACID INJ 1 MG in AMINO ACID IN D5W W/ELECTROLYT 2,000 ML IV SCH ×3 (20:44)
--- NOTE | 2016-12-27 22:10 | PD.ONC.PN ---
Subjective Subjective Remarks seen earlier in the day says she is weak started some oral intake refusing some therapies TPN ongoing no fevers Objective Data Date Time Temp Pulse Resp B/P (MAP) Pulse Ox O2 Delivery O2 Flow Rate FiO2 12/27/16 19:35 96 Nasal Cannula 3.00 12/27/16 16:00 96.6 104 21 127/58 (81) 94 12/27/16 12:00 98.3 109 23 127/61 (83) 92 12/27/16 08:57 96 Nasal Cannula 3.00 12/27/16 08:00 98.1 101 24 118/57 (77) 94 12/27/16 05:56 94 Nasal Cannula 3.00 12/27/16 00:00 97.9 103 22 131/60 (83) 93 12/26/16 23:50 18 12/26/16 22:30 18 12/27/16 12/27/16 12/27/16 06:59 14:59 22:59 Intake Total 120 ml 120 ml Output Total 1200 ml Balance 120 ml -1080 ml Result Diagram: 12/27/16 0645 12/27/16 0645 Laboratory Results Laboratory Tests Test 12/27/16 06:45 White Blood Count 11.5 TH/MM3 Red Blood Count 2.99 MIL/MM3 Hemoglobin 8.7 GM/DL Hematocrit 26.4 % Mean Corpuscular Volume 88.4 FL Mean Corpuscular Hemoglobin 29.0 PG Mean Corpuscular Hemoglobin Concent 32.8 % Red Cell Distribution Width 19.5 % Platelet Count 196 TH/MM3 Mean Platelet Volume 9.4 FL Neutrophils (%) (Auto) 78.3 % Lymphocytes (%) (Auto) 9.0 % Monocytes (%) (Auto) 8.5 % Eosinophils (%) (Auto) 3.7 % Basophils (%) (Auto) 0.5 % Neutrophils # (Auto) 9.0 TH/MM3 Lymphocytes # (Auto) 1.0 TH/MM3 Monocytes # (Auto) 1.0 TH/MM3 Eosinophils # (Auto) 0.4 TH/MM3 Basophils # (Auto) 0.1 TH/MM3 CBC Comment DIFF FINAL Differential Comment Blood Urea Nitrogen 12 MG/DL Creatinine 0.38 MG/DL Random Glucose 95 MG/DL Total Protein 5.6 GM/DL Albumin 1.7 GM/DL Calcium Level 7.9 MG/DL Phosphorus Level 2.5 MG/DL Magnesium Level 1.9 MG/DL Alkaline Phosphatase 102 U/L Aspartate Amino Transf (AST/SGOT) 15 U/L Alanine Aminotransferase (ALT/SGPT) 12 U/L Total Bilirubin 0.4 MG/DL Sodium Level 139 MEQ/L Potassium Level 3.2 MEQ/L Chloride Level 104 MEQ/L Carbon Dioxide Level 28.3 MEQ/L Anion Gap 7 MEQ/L Estimat Glomerular Filtration Rate 164 ML/MIN Administered Medications Medications (Trade) Dose Ordered Sig/Alla Route PRN Reason Start Time Stop Time Status Last Admin Dose Admin Sodium Chloride (NS Flush) 2 ml BID IV FLUSH 12/10/16 21:00 12/27/16 09:00 Enoxaparin Sodium (Lovenox Inj) 40 mg Q24H SQ 12/10/16 22:45 Future Hold 12/23/16 21:59 Amitriptyline HCl (Elavil) 25 mg HS PO 12/11/16 21:00 12/27/16 20:42 Levothyroxine Sodium (Synthroid) 75 mcg DAILY@07 PO 12/11/16 07:00 12/27/16 05:32 Lisinopril (Prinivil) 10 mg DAILY PO 12/11/16 09:00 12/27/16 09:38 Fat Emulsion Intravenous 250 ml @ 10 mls/hr Q24H IV-CENTRAL 12/11/16 20:00 12/27/16 20:44 Hydromorphone HCl (Dilaudid Pf Inj) 1 mg Q3H PRN IV PUSH PAIN SCALE 5 TO 10 12/12/16 14:45 12/26/16 23:12 Multivitamins 10 ml/Folic Acid 1 mg/Amino Acids/ Electrolytes/ Dextrose 2,010.2 ml @ 50 mls/hr Q24H IV 12/13/16 20:00 12/27/16 20:44 Nystatin (Mycostatin Liq) 5 ml QID SWISH-SWAL 12/19/16 18:00 12/27/16 20:42 Ipratropium [place] (Atrovent Neb) 0.5 mg Q4HR NEB NEB 12/20/16 20:00 12/27/16 16:03 Miscellaneous Information 1 Q3D T-DERMAL 12/20/16 18:00 12/26/16 18:00 Guaifenesin (Robitussin Liq) 600 mg BID PO 12/21/16 09:45 12/27/16 20:41 Patient Own Medication PT OWN MED: TRANXENE-T (CLORAZEPA... TID PO 12/23/16 13:00 Future hold 12/27/16 18:35 Pantoprazole Sodium (Protonix) 40 mg Q12HR PO 12/24/16 12:45 12/27/16 20:42 Ondansetron HCl (Zofran Inj) 4 mg Q4HR PRN IV PUSH N/V 12/24/16 18:00 12/26/16 21:13 Morphine Sulfate (Oramorph Sr) 30 mg Q12HR PO 12/26/16 21:00 12/27/16 20:43 Objective Remarks GENERAL: nad SKIN: Warm and dry LYMPHATIC: No adenopathy. CARDIOVASCULAR: Regular rate and rhythm without murmurs. RESPIRATORY: Breath sounds equal bilaterally. No accessory muscle use. GASTROINTESTINAL: Abdomen soft, non-tender, nondistended. EXTREMITIES: No cyanosis, or edema. Assessment/Plan Problem List: (1) Dysphagia ICD Codes: R13.10 - Dysphagia, unspecified Status: Acute Plan: currently on TPN until tolerating diet. 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 --Due to significant dysphagia a PEG tube was placed. --had complications from the PEG tube insertion site. --++large amount of leakage and a copious amount of purulent drainage from the PEG tube insertion site. +concern for abdominal wall fistula. --EGD and stent placement and PEG placement on 12.24-->EGD showed Radiation esophagitis, Esophageal stricture, Gastrocutaneous fistula, Gastric ulcers --upper GI series, 12/23-->No evidence of fistula or obstruction. Small diverticulum along the distal esophagus. (2) Non-small cell lung cancer (NSCLC) ICD Codes: C34.90 - Malignant neoplasm of unspecified part of unspecified bronchus or lung Status: Acute Plan: --further treatment in clinic once improvement in current conditions History: diagnosed via CT-guided biopsy in June of 2016. PET/CT scan confirmed this disease to be Stage III-B. --received concurrent chemotherapy and radiation treatments. --had a total of four cycles of chemotherapy. --Follow-up imaging showed a residual lung lesion in the left upper lobe which was 1.8 x 2.4 x 3.8 cm. The patient was recommended two additional consolidation treatments but unfortunately due to her decline in performance status, she was not able to be given this treatment. (3) Normocytic anemia ICD Codes: D64.9 - Anemia, unspecified Status: Acute Plan: monitor and transfuse as needed, given iron IV History: --patient became severely anemic with a hemoglobin in the 6 range and she was given 2 units of packed red blood cells. --no evidence of hemolysis. --likely losing blood through the GI tract. --also a component of malnutrition. --currently being seen by GI and further workup is ongoing. --ordered daily IV iron x 3 treatments. (4) Pain ICD Codes: R52 - Pain, unspecified Status: Acute Plan: --on IV Dilaudid p.r.n. 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 currently getting wound care. --has also been evaluated by Surgery and there are no surgical plans at this time. Assessment 76y/o female with a history of irl-jpgja-rymd lung cancer who was admitted to the hospital for complications from radiation esophagitis. h/o History of cxn-ohppa-yjrj lung cancer, Stage III-B, status post concurrent chemotherapy and radiation treatment. Esophageal strictures status post dilatation x 4. Hypertension. Port placement. Lung biopsy. Hysterectomy. Tonsillectomy. PEG tube placement. Plan 1. Pain better controlled with Oramorph 30mg PO BID as long-acting pain medication. 2. Malnutrition --albumin 1.7 .continue TPN - started to eat but still poor intake 3. Symptomatic anemia--transfuse 1 unit of prbc. premedicate with Tylenol and Benadryl 4. Hypokalemia--refused potassium replacement oral and IV dMontrell Whittington rn, MD Dec 27, 2016 22:10
[2016-12-27] MEDS ORDERED: diphenhydrAMINE HCL 25 MG CAP PO ONE (22:30)
[2016-12-27] MEDS ORDERED: ACETAMINOPHEN 325 MG TAB PO ONE (22:30)
[2016-12-28] VITALS (10 sets, daily range): BP systolic 103–153; BP diastolic 54–67; PULSE 98–107; RESP 17–20; TEMP 96.8–97.9; O2SAT 91–97
[2016-12-28] MEDS: ONDANSETRON HCL 4 MG/2 ML VIAL IV PUSH PRN ×3 (00:02→20:47)
[2016-12-28] MEDS: HYDROmorphone HCL PF 1 MG/ML VIAL IV PUSH PRN (00:03)
[2016-12-28] MEDS: RESP: IPRATROPIUM 0.5 MG/2.5 ML NEB NEB SCH ×6 (01:15→19:59)
[2016-12-28] MEDS: LEVOTHYROXINE SODIUM 75 MCG TAB PO SCH (06:20)
[2016-12-28] MEDS: CLORAZEPATE PO SCH ×3 (08:19→17:13)
[2016-12-28] MEDS: [UNRECOGNIZED DRUG - OTHER] PO SCH ×3 (08:19→17:13)
[2016-12-28] MEDS: NYSTATIN SUSP 500,000 U/5 ML CUP SWISH-SWAL SCH ×4 (08:20→20:46)
[2016-12-28] MEDS: PANTOPRAZOLE SOD 40 MG DELAYED RELEASE TAB PO SCH ×2 (08:21→20:47)
[2016-12-28] MEDS: MORPHINE SULFATE 30 MG CONTROLLED RELEASE TAB PO SCH (08:21)
[2016-12-28] MEDS: LISINOPRIL 10 MG TAB PO SCH (08:21)
[2016-12-28] MEDS: guaiFENesin SOLUTION 200 MG/10 ML CUP PO SCH ×2 (08:22→21:00)
[2016-12-28] MEDS: SODIUM CHLORIDE 0.9% FLUSH 10 ML FLUSH IV FLUSH SCH ×2 (08:25→20:48)
--- NOTE | 2016-12-28 10:17 | HHI.PR ---
Subjective Remarks on oxygen via N/C however in no acute distress. says that she's eating more now. has mild pain to the right flank. no other complaints. Objective Vitals Vital Signs Date Time Temp Pulse Resp B/P (MAP) Pulse Ox O2 Delivery O2 Flow Rate FiO2 12/28/16 08:28 91 Nasal Cannula 3.00 12/28/16 08:00 97.3 99 18 121/56 (77) 92 12/28/16 03:25 97.5 105 20 113/54 (73) 94 12/28/16 03:15 103 20 127/60 (82) 94 12/28/16 02:55 106 20 140/61 (87) 93 12/28/16 02:39 96.8 107 20 140/63 (88) 91 12/28/16 00:00 97.6 106 20 150/66 (94) 94 12/27/16 20:00 97.1 100 20 148/68 (94) 98 12/27/16 19:35 96 Nasal Cannula 3.00 12/27/16 16:00 96.6 104 21 127/58 (81) 94 12/27/16 12:00 98.3 109 23 127/61 (83) 92 I/O 12/27/16 12/27/16 12/27/16 12/28/16 12/28/16 12/28/16 07:00 15:00 23:00 07:00 15:00 23:00 Intake Total 120 ml 1510 ml 300 ml Output Total 1200 ml Balance 120 ml 310 ml 300 ml Intake Oral 120 ml 120 ml IV Total 1390 ml Packed Cells 300 ml Output Urine Total 1200 ml # Voids 3 4 # Bowel Movements 1 Result Diagram: 12/27/16 0645 12/27/16 0645 Objective Remarks GENERAL: This is a well-nourished, well-developed patient, in no apparent distress. CARDIOVASCULAR: Regular rate and regular rhythm without murmurs, gallops, or rubs. RESPIRATORY: Clear to auscultation. Breath sounds equal bilaterally. No wheezes , rales, or rhonchi. GASTROINTESTINAL: Abdomen soft, non-tender, nondistended. Normal, active bowel sounds MUSCULOSKELETAL: Extremities without clubbing, cyanosis, or edema. NEURO: Alert & Oriented x4 to person, place, time, situation. Moves all ext x4 Procedures 12/17/2016 EGD with clip placement Medications and IVs Current Medications Sodium Chloride 1,000 ml @ 125 mls/hr Q8H IV Last administered on 12/10/16 13: 15; Start 12/10/16 at 12:31; Stop 12/10/16 at 15:12; Status DC Clindamycin Phosphate 600 mg/ Sodium Chloride 104 ml @ 208 mls/hr ONCE ONCE IV Last administered on 12/10/16 13:14; Start 12/10/16 at 12:45; Stop 12/10/16 at 13:14; Status DC Hydromorphone HCl (Dilaudid Pf Inj) 0.5 mg ONCE ONCE IV PUSH Last administered on 12/10/16 13:50; Start 12/10/16 at 13:30; Stop 12/10/16 at 13:31; Status DC Sodium Chloride 1,000 ml @ 100 mls/hr Q10H IV Last administered on 12/11/16 05 :08; Start 12/10/16 at 15:00; Stop 12/11/16 at 10:29; Status DC Sodium Chloride (NS Flush) 2 ml BID IV FLUSH Last administered on 12/28/16 08: 25; Start 12/10/16 at 21:00 Potassium Chloride 100 ml @ 50 mls/hr Q2H IV Last administered on 12/10/16 17: 59; Start 12/10/16 at 16:00; Stop 12/10/16 at 19:59; Status DC Hydromorphone HCl (Dilaudid Pf Inj) 0.5 mg Q4H PRN IV PUSH PAIN SCALE 5 TO 10 Last administered on 12/12/16 11:02; Start 12/10/16 at 15:45; Stop 12/12/16 at 12: 25; Status DC Piperacillin Sod/ Tazobactam Sod 100 ml @ 200 mls/hr Q8H IV Last administered on 12/13/16 08:58; Start 12/10/16 at 17:00; Stop 12/13/16 at 16:51; Status DC Vancomycin HCl 1000 mg/Sodium Chloride 250 ml @ 250 mls/hr ONCE ONCE IV ; Start 12/10/16 at 16:00; Stop 12/10/16 at 16:00; Status DC Pharmacy Profile Note 0 ml @ 0 mls/hr UNSCH OTHER ; Start 12/10/16 at 15:45; Stop 12/13/16 at 16:51; Status DC Vancomycin HCl 750 mg/Sodium Chloride 257.5 ml @ 250 mls/hr Q24H IV Last administered on 12/12/16 17:13; Start 12/10/16 at 17:00; Stop 12/13/16 at 16:51; Status DC Miscellaneous Information SPECIFIC LAB TO BE ERON... ONCE ONCE .XX ; Start at 16:45; Stop 12/13/16 at 16:46; Status DC Fluconazole/ Sodium Chloride 50 ml @ 50 mls/hr Q24H IV Last administered on 12/12 20:13; Start 12/10/16 at 20:00; Stop 12/13/16 at 16:51; Status DC Iohexol (Omnipaque 350 Inj) 96 ml STK-MED ONCE IV Last administered on 20:21; Start 12/10/16 at 20:21; Stop 12/10/16 at 20:22; Status DC Enoxaparin Sodium (Lovenox Inj) 40 mg Q24H SQ Last administered on 12/23/16 21 :59; Start 12/10/16 at 22:45; Status Future Hold Amitriptyline HCl (Elavil) 25 mg HS PO Last administered on 12/27/16 20:42; Start 12/11/16 at 21:00 Levothyroxine Sodium (Synthroid) 75 mcg DAILY@07 PO Last administered on 06:20; Start 12/11/16 at 07:00 Lisinopril (Prinivil) 10 mg DAILY PO Last administered on 12/28/16 08:21; Start 12/11/16 at 09:00 Hydromorphone HCl (Dilaudid Pf Inj) 0.5 mg ONCE ONCE IV PUSH Last administered on 12/11/16 00:23; Start 12/10/16 at 23:45; Stop 12/10/16 at 23:46; Status DC Potassium Bicarb/ Potassium Chloride (K-Lyte Cl Eff) 50 meq ONCE ONCE PO ; Start 12/11/16 at 09:15; Stop 12/11/16 at 11:37; Status DC Dextrose/Sodium Chloride 1,000 ml @ 84 mls/hr [id number] IV Last administered on 12/26/16 08:23; Start 12/11/16 at 10:30; Stop 12/26/16 at 15:08; Status DC Potassium Chloride 100 ml @ 50 mls/hr Q2H IV Last administered on 12/11/16 15: 33; Start 12/11/16 at 12:00; Stop 12/11/16 at 15:59; Status DC Multivitamins 10 ml/Folic Acid 1 mg/Amino Acids/ Electrolytes/ Dextrose 1,010.2 ml @ 50 mls/hr [id number] IV-CENTRAL Last administered on 12/12/16 18:47; Start 12/11/16 at 20:00; Stop 12/13/16 at 10:36; Status DC Fat Emulsion Intravenous 250 ml @ 10 mls/hr Q24H IV-CENTRAL Last administered on 12/27/16 20:44; Start 12/11/16 at 20:00 Ondansetron HCl (Zofran Inj) 4 mg Q6HR PRN IV PUSH N/V Last administered on 17:22; Start 12/11/16 at 16:15; Stop 12/24/16 at 18:00; Status DC Hydromorphone HCl (Dilaudid Pf Inj) 0.5 mg ONCE ONCE IV PUSH Last administered on 12/11/16 23:30; Start 12/11/16 at 20:00; Stop 12/11/16 at 20:01; Status DC Hydromorphone HCl (Dilaudid Pf Inj) 1 mg Q3H PRN IV PUSH PAIN SCALE 5 TO 10 Last administered on 12/28/16 00:03; Start 12/12/16 at 14:45 Multivitamins 10 ml/Folic Acid 1 mg/Amino Acids/ Electrolytes/ Dextrose 2,010.2 ml @ 50 mls/hr Q24H IV Last administered on 12/27/16 20:44; Start 12/13/16 at 20:00 Hydromorphone HCl (Dilaudid Pf Inj) 1.5 mg ONCE ONCE IV PUSH Last administered on 12/14/16 23:18; Start 12/14/16 at 22:45; Stop 12/14/16 at 22:46; Status DC Potassium Chloride 100 ml @ 50 mls/hr Q2H IV Last administered on 12/15/16 04: 37; Start 12/15/16 at 01:15; Stop 12/15/16 at 05:14; Status DC Potassium Chloride (KCl) 40 meq ONCE ONCE PO ; Start 12/15/16 at 01:15; Stop 12/15/16 at 01:50; Status DC Potassium Bicarb/ Potassium Chloride (K-Lyte Cl Eff) 50 meq ONCE ONCE PO Last administered on 12/15/16 01:58; Start 12/15/16 at 02:00; Stop 12/15/16 at 02: 01; Status DC Magnesium Sulfate/ Dextrose 100 ml @ 100 mls/hr ONCE ONCE IV Last administered on 12/15/16 10:55; Start 12/15/16 at 09:00; Stop 12/15/16 at 09:59; Status DC Fentanyl (Duragesic 25 Mcg Patch.72 Hr) 1 patch Q3D T-DERMAL Last administered on 12/18/16 12:16; Start 12/15/16 at 12:00; Stop 12/20/16 at 17:53 ; Status DC Miscellaneous Information 1 Q3D T-DERMAL Last administered on 12/18/16 12:00; Start 12/18/16 at 12:00; Stop 12/20/16 at 17:53; Status DC Heparin Sodium (Porcine) (Heparin Central Flush) 200 units ONCE ONCE IV FLUSH Last administered on 12/16/16 09:42; Start 12/16/16 at 09:15; Stop 12/16/16 at 09:21; Status DC Potassium Chloride (KCl) 40 meq ONCE ONCE PO Last administered on 12/16/16 17 :47; Start 12/16/16 at 17:00; Stop 12/16/16 at 17:01; Status DC Potassium Chloride 100 ml @ 100 mls/hr Q1H IV Last administered on 12/17/16 00:46; Start 12/16/16 at 22:15; Stop 12/17/16 at 01:14; Status DC Lactated Ringer's 1,000 ml @ 30 mls/hr Q24H PRN IV SEE LABEL COMMENTS; Start at 02:30; Stop 12/20/16 at 02:29; Status DC Povidone Iodine (Betadine 5% Antisepsis Kit) 1 applic BACK END [employer]ELOPER PRN EACH NARE SEE LABEL COMMENTS; Start 12/17/16 at 02:30; Stop 12/20/16 at 02:29; Status DC Chlorhexidine Gluconate (Chlorhexidine 2% Cloth) 3 pack BACK [employer]ELOPER PRN TOPICAL SEE LABEL COMMENTS; Start 12/17/16 at 02:30; Stop 12/20/16 at 02:29; Status DC Insulin Human Regular (NovoLIN R INJ) See Protocol Table ... BACK END WEB DEVELOPER PRN SQ SEE PROTOCOL TABLE; Start 12/17/16 at 02:30; Stop 12/20/16 at 02:29; Status DC Silver Nitrate/ Potassium Nitrate (Silver Nitrate Applicators) 4 appl STK-MED ONCE TOPICAL Last administered on 12/17/16 15:19; Start 12/17/16 at 15:19; Stop 12/17/16 at 17:45; Status DC Propofol (Diprivan 200 Mg/20 ml Inj) 320 mg STK-MED ONCE IV ; Start 12/17/16 at 15:19; Stop 12/17/16 at 17:48; Status DC Potassium Chloride 100 ml @ 50 mls/hr Q2H IV Last administered on 12/18/16 12 :16; Start 12/18/16 at 09:00; Stop 12/18/16 at 12:59; Status DC Lidocaine/ Diphenhydr/Alum/ Mg/Simeth (Magic Mouthwash Pediatric/Adult Liq) 5 ml ACHS SWISH-SWAL Last administered on 12/23/16 21:49; Start 12/19/16 at 16: 00; Stop 12/24/16 at 17:59; Status DC Nystatin (Mycostatin Liq) 5 ml QID SWISH-SWAL Last administered on 12/28/16 08:20; Start 12/19/16 at 18:00 Potassium Chloride 100 ml @ 50 mls/hr Q2H IV Last administered on 12/20/16 17 :33; Start 12/20/16 at 08:30; Stop 12/20/16 at 12:29; Status DC Magnesium Sulfate/ Dextrose 100 ml @ 100 mls/hr ONCE ONCE IV Last administered on 12/20/16 10:02; Start 12/20/16 at 08:30; Stop 12/20/16 at 09:29 ; Status DC Ipratropium [place] (Atrovent Neb) 0.5 mg Q4HR NEB NEB Last administered on 16:03; Start 12/20/16 at 20:00 Guaifenesin (Mucinex Er) 600 mg BID PO Last administered on 12/20/16 22:00; Start 12/20/16 at 21:00; Stop 12/21/16 at 09:45; Status DC Venlafaxine HCl (Effexor) 25 mg DAILY PO Last administered on 12/20/16 19:21; Start 12/20/16 at 18:00; Stop 12/21/16 at 18:01; Status DC Fentanyl (Duragesic 50 Mcg Patch.72 Hr) 1 patch Q3D T-DERMAL Last administered on 12/20/16 19:19; Start 12/20/16 at 18:00; Stop 12/24/16 at 17:59 ; Status DC Miscellaneous Information 1 Q3D T-DERMAL Last administered on 12/26/16 18:00; Start 12/20/16 at 18:00 Magnesium Sulfate/ Dextrose 100 ml @ 100 mls/hr Q1H IV Last administered on 11:17; Start 12/21/16 at 09:45; Stop 12/21/16 at 11:44; Status DC Potassium Chloride 100 ml @ 50 mls/hr Q2H IV ; Start 12/21/16 at 09:45; Stop at 13:44; Status Cancel Guaifenesin (Robitussin Liq) 600 mg BID PO Last administered on 12/28/16 08:22 ; Start 12/21/16 at 09:45 Magnesium Sulfate/ Dextrose 100 ml @ 100 mls/hr Q1H IV Last administered on 14:55; Start 12/21/16 at 14:45; Stop 12/21/16 at 15:44; Status DC Potassium Chloride 100 ml @ 50 mls/hr Q2H IV Last administered on 12/21/16 20 :32; Start 12/21/16 at 17:00; Stop 12/21/16 at 20:59; Status DC Sodium Chloride 250 ml @ 15 mls/hr ONCE ONCE IV Last administered on 13:17; Start 12/22/16 at 08:45; Stop 12/23/16 at 01:24; Status DC Acetaminophen (Tylenol) 650 mg Q4H PRN PO SEE LABEL COMMENTS; Start 12/22/16 at 08:45; Stop 12/22/16 at 12:46; Status DC Diphenhydramine HCl (Benadryl) 25 mg Q4H PRN PO SEE LABEL COMMENTS; Start 12/22 at 08:45; Stop 12/22/16 at 12:46; Status DC Furosemide (Lasix Inj) 20 mg ONCE ONCE IV Last administered on 12/22/16 16:31 ; Start 12/22/16 at 08:45; Stop 12/22/16 at 08:46; Status DC Acetaminophen (Tylenol) 650 mg Q4H PRN PO SEE LABEL COMMENTS Last administered on 12/22/16 13:59; Start 12/22/16 at 14:00; Stop 12/22/16 at 18:01; Status DC Diphenhydramine HCl (Benadryl) 25 mg Q4H PRN PO SEE LABEL COMMENTS Last administered on 12/22/16 17:18; Start 12/22/16 at 14:00; Stop 12/22/16 at 18:01 ; Status DC Patient Own Medication PT OWN MED: TRANXENE-T (CLORAZEPA... TID PO Last administered on 12/28/16 08:19; Start 12/23/16 at 13:00; Status Future hold Diatrizoate Meglum/ Diatrizoate Sod ( Gastroview Liq) 240 ml STK-MED ONCE PO Last administered on 12/23/16 09:45; Start 12/23/16 at 09:45; Stop 12/23/16 at 10:14; Status DC Iron Sucrose 200 mg/Sodium Chloride 110 ml @ 110 mls/hr DAILY IV Last administered on 12/26/16 08:23; Start 12/24/16 at 09:00; Stop 12/26/16 at 09:59 ; Status DC Lactated Ringer's 1,000 ml @ 30 mls/hr Q24H PRN IV SEE LABEL COMMENTS; Start at 03:30; Stop 12/27/16 at 03:29; Status DC Sodium Chloride 500 ml @ 30 mls/hr [id number] PRN IV SEE LABEL COMMENTS; Start at 03:30; Stop 12/27/16 at 03:29; Status DC Morphine Sulfate (*morphine INJ PERIprocedure ONLY) 8 mg STK-MED ONCE .ROUTE Last administered on 12/24/16 12:29; Start 12/24/16 at 12:29; Stop 12/24/16 at 12:30; Status DC Pantoprazole Sodium (Protonix) 40 mg Q12HR PO Last administered on 12/28/16 08 :21; Start 12/24/16 at 12:45 Miscellaneous Information ALL NURSING DEPARTME... UNSCH PRN .XX SEE LABEL COMMENTS; Start 12/24/16 at 13:45; Stop 12/25/16 at 13:44; Status DC Propofol (Diprivan 200 Mg/20 ml Inj) 300 mg STK-MED ONCE IV ; Start 12/24/16 at 11:40; Stop 12/24/16 at 15:16; Status DC Ondansetron HCl (Zofran Inj) 4 mg Q4HR PRN IV PUSH N/V Last administered on 03:15; Start 12/24/16 at 18:00 Potassium Chloride 100 ml @ 100 mls/hr Q1H IV ; Start 12/25/16 at 10:30; Stop 12/25/16 at 13:29; Status DC Magnesium Sulfate/ Dextrose 100 ml @ 100 mls/hr ONCE ONCE IV Last administered on 12/25/16 11:16; Start 12/25/16 at 10:30; Stop 12/25/16 at 11:29 ; Status DC Morphine Sulfate (Oramorph Sr) 30 mg Q12HR PO Last administered on 12/28/16 08 :21; Start 12/26/16 at 21:00 Acetaminophen (Tylenol) 650 mg ONCE ONCE PO Last administered on 12/28/16 02: 12; Start 12/27/16 at 22:30; Stop 12/27/16 at 22:31; Status DC Diphenhydramine HCl (Benadryl) 25 mg ONCE ONCE PO Last administered on 02:12; Start 12/27/16 at 22:30; Stop 12/27/16 at 22:31; Status DC A/P Assessment and Plan - 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 - GI has added IV fluconazole as well. ID was consulted. All abx discontinued on 12/13/2016 per ID. - Continue TPN. -continue with pain control. - Patient underwent EGD with clip placement on 12/17/2016. EGD with Dilatation and possible stent placement once fistula heals. continue high output through Fistula. has Ulcerated skin around her ostomy and as per General Surgery Doctor Tex Sawant recommended Paste before ostomy ring and do not touch ulcerated skin with the ring. asked by GI for Upper GI series with Gastrografin. Status post EGD and stent placement and PEG placement on 12.24--> EGD showed Radiation esophagitis, Esophageal stricture, Gastrocutaneous fistula, Gastric ulcers, her PEG tube is been placed for Gastrocutaneous fistula closure not for feeding purposes GI following. - Radiation induced esophageal stricture - Esophageal dilatation done recently. - Status post EGD and PEG placed. - History of Non-small cell lung cancer, further management by computer systems support specialist once patient improve actual condition. - s/p chemo, radiation therapy. - Left sided pleural effusion - Etiology is not clear. Can be observed. - If persistent, diagnostic thoracentesis can be considered to rule out lung cancer progression. -will try to wean off the oxygen- might need walk test prior to discharge. - Electrolyte derangement Hypokalemia the patient REFUSED Potassium replacement IV or By mouth - Hypothyroidism - continue Levothyroxine 75mcg Qday. - Hypertension - controlled. - Oral Thrush on Nystatin Improving. -Anxiety to start her home medicine Tranxene 3.75 mg TID pharmacy information placed. -Anemia - s/p PRBC transfusion- will monitor H/H. oncology following. Full code. Lovenox. Nakita Lopez MD Dec 28, 2016 10:17
--- NOTE | 2016-12-28 13:54 | PD.ONC.PN ---
Subjective Subjective Remarks Afebrile overnight Patient sitting up on side of bed in no distress talking to her daughter Complains of the morphine making her too sleepy Intake by mouth has improved Objective Data Date Time Temp Pulse Resp B/P (MAP) Pulse Ox O2 Delivery O2 Flow Rate FiO2 12/28/16 12:00 97.2 98 17 103/56 (72) 92 12/28/16 08:28 91 Nasal Cannula 3.00 12/28/16 08:00 97.3 99 18 121/56 (77) 92 12/28/16 03:25 97.5 105 20 113/54 (73) 94 12/28/16 03:15 103 20 127/60 (82) 94 12/28/16 02:55 106 20 140/61 (87) 93 12/28/16 02:39 96.8 107 20 140/63 (88) 91 12/28/16 00:00 97.6 106 20 150/66 (94) 94 12/27/16 20:00 97.1 100 20 148/68 (94) 98 12/27/16 19:35 96 Nasal Cannula 3.00 12/27/16 16:00 96.6 104 21 127/58 (81) 94 12/28/16 12/28/16 12/28/16 07:00 15:00 23:00 Intake Total 300 ml Balance 300 ml Result Diagram: 12/27/16 0645 12/27/16 0645 Administered Medications Medications (Trade) Dose Ordered Sig/Alla Route PRN Reason Start Time Stop Time Status Last Admin Dose Admin Sodium Chloride (NS Flush) 2 ml BID IV FLUSH 12/10/16 21:00 12/28/16 08:25 Enoxaparin Sodium (Lovenox Inj) 40 mg Q24H SQ 12/10/16 22:45 Future Hold 12/23/16 21:59 Amitriptyline HCl (Elavil) 25 mg HS PO 12/11/16 21:00 12/27/16 20:42 Levothyroxine Sodium (Synthroid) 75 mcg DAILY@07 PO 12/11/16 07:00 12/28/16 06:20 Lisinopril (Prinivil) 10 mg DAILY PO 12/11/16 09:00 12/28/16 08:21 Fat Emulsion Intravenous 250 ml @ 10 mls/hr Q24H IV-CENTRAL 12/11/16 20:00 12/27/16 20:44 Hydromorphone HCl (Dilaudid Pf Inj) 1 mg Q3H PRN IV PUSH PAIN SCALE 5 TO 10 12/12/16 14:45 12/28/16 00:03 Multivitamins 10 ml/Folic Acid 1 mg/Amino Acids/ Electrolytes/ Dextrose 2,010.2 ml @ 50 mls/hr Q24H IV 12/13/16 20:00 12/27/16 20:44 Nystatin (Mycostatin Liq) 5 ml QID SWISH-SWAL 12/19/16 18:00 12/28/16 12:39 Ipratropium [place] (Atrovent Neb) 0.5 mg Q4HR NEB NEB 12/20/16 20:00 12/27/16 16:03 Miscellaneous Information 1 Q3D T-DERMAL 12/20/16 18:00 12/26/16 18:00 Guaifenesin (Robitussin Liq) 600 mg BID PO 12/21/16 09:45 12/28/16 08:22 Patient Own Medication PT OWN MED: TRANXENE-T (CLORAZEPA... TID PO 12/23/16 13:00 Future hold 12/28/16 12:38 Pantoprazole Sodium (Protonix) 40 mg Q12HR PO 12/24/16 12:45 12/28/16 08:21 Ondansetron HCl (Zofran Inj) 4 mg Q4HR PRN IV PUSH N/V 12/24/16 18:00 12/28/16 03:15 Morphine Sulfate (Oramorph Sr) 30 mg Q12HR PO 12/26/16 21:00 12/28/16 08:21 Objective Remarks GENERAL: Elderly female upright in bed. He appears somewhat dyspneic with conversation SKIN: Warm and dry. HEAD: Normocephalic. EYES: No injection or drainage. NECK: Supple, trachea midline. CARDIOVASCULAR: Regular rate and rhythm RESPIRATORY: Scattered wheezes posteriorly. GASTROINTESTINAL: Abdomen soft, non-distended. PEG tube clamped. EXTREMITIES: No cyanosis NEUROLOGICAL: Normal speech. Moving all extremities. No obvious deficit. 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 --Due to significant dysphagia a PEG tube was placed. --had complications from the PEG tube insertion site. --++large amount of leakage and a copious amount of purulent drainage from the PEG tube insertion site. +concern for abdominal wall fistula. --EGD and stent placement and PEG placement on 12.24-->EGD showed Radiation esophagitis, Esophageal stricture, Gastrocutaneous fistula, Gastric ulcers --upper GI series, 12/23-->No evidence of fistula or obstruction. Small diverticulum along the distal esophagus. (2) Non-small cell lung cancer (NSCLC) ICD Codes: C34.90 - Malignant neoplasm of unspecified part of unspecified bronchus or lung Status: Acute Plan: --further treatment in clinic once improvement in current conditions History: diagnosed via CT-guided biopsy in June of 2016. PET/CT scan confirmed this disease to be Stage III-B. --received concurrent chemotherapy and radiation treatments. --had a total of four cycles of chemotherapy. --Follow-up imaging showed a residual lung lesion in the left upper lobe which was 1.8 x 2.4 x 3.8 cm. The patient was recommended two additional consolidation treatments but unfortunately due to her decline in performance status, she was not able to be given this treatment. (3) Normocytic anemia ICD Codes: D64.9 - Anemia, unspecified Status: Acute Plan: monitor and transfuse as needed, given iron IV History: --patient became severely anemic with a hemoglobin in the 6 range and she was given 2 units of packed red blood cells. --no evidence of hemolysis. --likely losing blood through the GI tract. --also a component of malnutrition. --currently being seen by GI and further workup is ongoing. --ordered daily IV iron x 3 treatments. (4) Pain ICD Codes: R52 - Pain, unspecified Status: Acute Plan: --on IV Dilaudid p.r.n. 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 currently getting wound care. --has also been evaluated by Surgery and there are no surgical plans at this time. Assessment 76y/o female with a history of [id number] lung cancer who was admitted to the hospital for complications from radiation esophagitis. h/o History of [id number] lung cancer, Stage III-B, status post concurrent chemotherapy and radiation treatment. Esophageal strictures status post dilatation x 4. Hypertension. Port placement. Lung biopsy. Hysterectomy. Tonsillectomy. PEG tube placement. Plan 1. Decrease Oramorph to 15 mg twice daily and add in prn oxycodone. 2. The patient has started to take in more by mouth; we will slowly wean TPN 3. Decrease TPN to 40ml/hr today. 4. Monitor CBC Discussed with RN Attending Statement The exam, history, and the medical decision-making described in the above note were completed with the assistance of the mid-level provider. I reviewed and agree with the findings presented. I attest that I had a [id number] encounter with the patient on the same day, and personally performed and documented my assessment and findings in the medical record Pain meds adjusted decrease MS contin--start Prn oxycodone Decrease TPN rate--tolerating oral intake--had Steak and Shake lunch Wean off oxygen mehul campoverde long discussion with patient and her daughter Time spent in evaluating patient/orders/coordinating care--30 minutes Isabel Navarro Dec 28, 2016 13:54 Montrell Montiel MD Dec 28, 2016 22:03
[2016-12-28] MEDS: FAT EMULSION 20% INJ 250 ML (@10 mls/hr) IV-CENTRAL SCH (20:46)
[2016-12-28] MEDS: MULTIVITAMIN INJ 10 ML, FOLIC ACID INJ 1 MG in AMINO ACID IN D5W W/ELECTROLYT 2,000 ML IV SCH ×3 (20:46)
[2016-12-28] MEDS: AMITRIPTYLINE HCL 25 MG TAB PO SCH (20:47)
[2016-12-28] MEDS: MORPHINE SULFATE 15 MG CONTROLLED RELEASE TAB PO SCH (20:48)
[2016-12-29] VITALS (8 sets, daily range): BP systolic 138–163; BP diastolic 65–73; PULSE 109–141; RESP 18–35; TEMP 97–101.1; O2SAT 72–100
[2016-12-29] MEDS: ONDANSETRON HCL 4 MG/2 ML VIAL IV PUSH PRN ×3 (01:27→19:46)
[2016-12-29] MEDS: HYDROmorphone HCL PF 1 MG/ML VIAL IV PUSH PRN ×2 (01:28→05:05)
[2016-12-29] MEDS: RESP: IPRATROPIUM 0.5 MG/2.5 ML NEB NEB SCH ×6 (03:50→22:19)
[2016-12-29] MEDS: LEVOTHYROXINE SODIUM 75 MCG TAB PO SCH (05:09)
[2016-12-29 07:11] LABS: BASOPHIL % 0.4 % (0.0-2.0); EOSINOPHIL # 0.3 TH/MM3 (0-0.4); EOSINOPHIL % 3.5 % (0.0-4.0); HEMATOCRIT 31.2 % (35.0-46.0); HEMO FLAGS DIFF FINAL; LYMPH % 6.8 % (9.0-44.0); LYMPHOCYTE # 0.6 TH/MM3 (1.0-4.8); MEAN CELL VOLUME 86.4 FL (80.0-100.0); MEAN CORPUSCULAR HEMOGLOBIN 27.5 PG (27.0-34.0); MEAN CORPUSCULAR HGB CONC 31.8 % (32.0-36.0); MONO % 7.4 % (0.0-8.0); NEUT % 81.9 % (16.0-70.0); PLATELET COUNT 211 TH/MM3 (150-450); RED BLOOD COUNT 3.61 MIL/MM3 (4.00-5.30); RED CELL DISTRIBUTION WIDTH 22.8 % (11.6-17.2); WHITE BLOOD COUNT 8.6 TH/MM3 (4.0-11.0)
[2016-12-29 07:33] LABS: POTASSIUM 3.5 MEQ/L (3.5-5.1)
[2016-12-29] MEDS: MORPHINE SULFATE 15 MG CONTROLLED RELEASE TAB PO SCH ×3 (08:28→21:00)
[2016-12-29] MEDS: PANTOPRAZOLE SOD 40 MG DELAYED RELEASE TAB PO SCH ×3 (08:28→21:00)
[2016-12-29] MEDS: LISINOPRIL 10 MG TAB PO SCH (08:28)
[2016-12-29] MEDS: SODIUM CHLORIDE 0.9% FLUSH 10 ML FLUSH IV FLUSH SCH ×2 (08:30→19:49)
[2016-12-29] MEDS: CLORAZEPATE PO SCH ×3 (08:30→17:37)
[2016-12-29] MEDS: [UNRECOGNIZED DRUG - OTHER] PO SCH ×3 (08:30→17:37)
[2016-12-29] MEDS: NYSTATIN SUSP 500,000 U/5 ML CUP SWISH-SWAL SCH ×4 (08:31→19:46)
[2016-12-29] MEDS: guaiFENesin SOLUTION 200 MG/10 ML CUP PO SCH ×3 (08:31→21:00)
--- NOTE | 2016-12-29 08:42 | HHI.PR ---
Subjective Remarks feels better today. pain is better. no new complaints. Objective Vitals Vital Signs Date Time Temp Pulse Resp B/P (MAP) Pulse Ox O2 Delivery O2 Flow Rate FiO2 12/29/16 08:00 97.4 114 20 154/68 (96) 91 12/29/16 00:00 99.4 113 18 145/67 (93) 93 12/28/16 20:00 97.3 106 18 153/67 (95) 97 12/28/16 16:00 97.9 99 18 118/55 (76) 93 12/28/16 12:00 97.2 98 17 103/56 (72) 92 I/O 12/28/16 12/28/16 12/28/16 12/29/16 12/29/16 12/29/16 07:00 15:00 23:00 07:00 15:00 23:00 Intake Total 300 ml 720 ml 2479 ml Output Total 3 ml Balance 300 ml 720 ml 2476 ml Intake Oral 720 ml 360 ml TPN/PPN 1666 ml Lipid 453 ml Packed Cells 300 ml Output Urine Total 3 ml # Voids 4 5 # Bowel Movements 0 Result Diagram: 12/29/16 0632 12/29/16 0632 Imaging Last Impressions GI Procedure 12/24/16 1119 Signed Impressions: Service Date/Time: Saturday, December 24, 2016 11:24 - CONCLUSION: 1. Esophageal stent in excellent position. Clifford Machado MD Upper GI Series 12/23/16 0000 Signed Impressions: Service Date/Time: December 09:22 - CONCLUSION: 1. No evidence of fistula or obstruction. 2. Small diverticulum along the distal esophagus. Louie Conrad MD Chest X-Ray 12/21/16 0000 Signed Impressions: Service Date/Time: Wednesday, December 21, 2016 10:41 - CONCLUSION: 1. Focal patchiness within the left apex consistent with probable known pleural based mass/nodular thickening. 2. No acute focal pulmonary infiltrate or pulmonary vascular congestion. Trey Newton MD Abdomen/Pelvis CT 12/10/16 0000 Signed Impressions: Service Date/Time: Saturday, December 10, 2016 20:17 - CONCLUSION: 1. Focal thickening of the left rectus muscle with sinus tract extending from the lumen of the stomach into the rectus, presumably at site of prior percutaneous gastrostomy. 2. Moderate-sized left pleural effusion. No evidence of ascites. 3. 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 4. Sigmoid diverticulosis without radiographic evidence of diverticulitis. Armando Harrington MD Objective Remarks GENERAL: This is a well-nourished, well-developed patient, in no apparent distress. CARDIOVASCULAR: Regular rate and regular rhythm without murmurs, gallops, or rubs. RESPIRATORY: Clear to auscultation. Breath sounds equal bilaterally. No wheezes , rales, or rhonchi. GASTROINTESTINAL: Abdomen soft, non-tender, nondistended. Normal, active bowel sounds MUSCULOSKELETAL: Extremities without clubbing, cyanosis, or edema. NEURO: Alert & Oriented x4 to person, place, time, situation. Moves all ext x4 Procedures 12/17/2016 EGD with clip placement Medications and IVs Current Medications Sodium Chloride 1,000 ml @ 125 mls/hr Q8H IV Last administered on 12/10/16 13: 15; Start 12/10/16 at 12:31; Stop 12/10/16 at 15:12; Status DC Clindamycin Phosphate 600 mg/ Sodium Chloride 104 ml @ 208 mls/hr ONCE ONCE IV Last administered on 12/10/16 13:14; Start 12/10/16 at 12:45; Stop 12/10/16 at 13:14; Status DC Hydromorphone HCl (Dilaudid Pf Inj) 0.5 mg ONCE ONCE IV PUSH Last administered on 12/10/16 13:50; Start 12/10/16 at 13:30; Stop 12/10/16 at 13:31; Status DC Sodium Chloride 1,000 ml @ 100 mls/hr Q10H IV Last administered on 12/11/16 05 :08; Start 12/10/16 at 15:00; Stop 12/11/16 at 10:29; Status DC Sodium Chloride (NS Flush) 2 ml BID IV FLUSH Last administered on 12/28/16 20: 48; Start 12/10/16 at 21:00 Potassium Chloride 100 ml @ 50 mls/hr Q2H IV Last administered on 12/10/16 17: 59; Start 12/10/16 at 16:00; Stop 12/10/16 at 19:59; Status DC Hydromorphone HCl (Dilaudid Pf Inj) 0.5 mg Q4H PRN IV PUSH PAIN SCALE 5 TO 10 Last administered on 12/12/16 11:02; Start 12/10/16 at 15:45; Stop 12/12/16 at 12: 25; Status DC Piperacillin Sod/ Tazobactam Sod 100 ml @ 200 mls/hr Q8H IV Last administered on 12/13/16 08:58; Start 12/10/16 at 17:00; Stop 12/13/16 at 16:51; Status DC Vancomycin HCl 1000 mg/Sodium Chloride 250 ml @ 250 mls/hr ONCE ONCE IV ; Start 12/10/16 at 16:00; Stop 12/10/16 at 16:00; Status DC Pharmacy Profile Note 0 ml @ 0 mls/hr UNSCH OTHER ; Start 12/10/16 at 15:45; Stop 12/13/16 at 16:51; Status DC Vancomycin HCl 750 mg/Sodium Chloride 257.5 ml @ 250 mls/hr Q24H IV Last administered on 12/12/16 17:13; Start 12/10/16 at 17:00; Stop 12/13/16 at 16:51; Status DC Miscellaneous Information SPECIFIC LAB TO BE ... ONCE ONCE .XX ; Start at 16:45; Stop 12/13/16 at 16:46; Status DC Fluconazole/ Sodium Chloride 50 ml @ 50 mls/hr Q24H IV Last administered on 12/12 20:13; Start 12/10/16 at 20:00; Stop 12/13/16 at 16:51; Status DC Iohexol (Omnipaque 350 Inj) 96 ml STK-MED ONCE IV Last administered on 20:21; Start 12/10/16 at 20:21; Stop 12/10/16 at 20:22; Status DC Enoxaparin Sodium (Lovenox Inj) 40 mg Q24H SQ Last administered on 12/23/16 21 :59; Start 12/10/16 at 22:45; Status Future Hold Amitriptyline HCl (Elavil) 25 mg HS PO Last administered on 12/28/16 20:47; Start 12/11/16 at 21:00 Levothyroxine Sodium (Synthroid) 75 mcg DAILY@07 PO Last administered on 05:09; Start 12/11/16 at 07:00 Lisinopril (Prinivil) 10 mg DAILY PO Last administered on 12/29/16 08:28; Start 12/11/16 at 09:00 Hydromorphone HCl (Dilaudid Pf Inj) 0.5 mg ONCE ONCE IV PUSH Last administered on 12/11/16 00:23; Start 12/10/16 at 23:45; Stop 12/10/16 at 23:46; Status DC Potassium Bicarb/ Potassium Chloride (K-Lyte Cl Eff) 50 meq ONCE ONCE PO ; Start 12/11/16 at 09:15; Stop 12/11/16 at 11:37; Status DC Dextrose/Sodium Chloride 1,000 ml @ 84 mls/hr [id number] IV Last administered on 12/26/16 08:23; Start 12/11/16 at 10:30; Stop 12/26/16 at 15:08; Status DC Potassium Chloride 100 ml @ 50 mls/hr Q2H IV Last administered on 12/11/16 15: 33; Start 12/11/16 at 12:00; Stop 12/11/16 at 15:59; Status DC Multivitamins 10 ml/Folic Acid 1 mg/Amino Acids/ Electrolytes/ Dextrose 1,010.2 ml @ 50 mls/hr [id number] IV-CENTRAL Last administered on 12/12/16 18:47; Start 12/11/16 at 20:00; Stop 12/13/16 at 10:36; Status DC Fat Emulsion Intravenous 250 ml @ 10 mls/hr Q24H IV-CENTRAL Last administered on 12/28/16 20:46; Start 12/11/16 at 20:00 Ondansetron HCl (Zofran Inj) 4 mg Q6HR PRN IV PUSH N/V Last administered on 17:22; Start 12/11/16 at 16:15; Stop 12/24/16 at 18:00; Status DC Hydromorphone HCl (Dilaudid Pf Inj) 0.5 mg ONCE ONCE IV PUSH Last administered on 12/11/16 23:30; Start 12/11/16 at 20:00; Stop 12/11/16 at 20:01; Status DC Hydromorphone HCl (Dilaudid Pf Inj) 1 mg Q3H PRN IV PUSH PAIN SCALE 5 TO 10 Last administered on 12/29/16 05:05; Start 12/12/16 at 14:45 Multivitamins 10 ml/Folic Acid 1 mg/Amino Acids/ Electrolytes/ Dextrose 2,010.2 ml @ 40 mls/hr Q24H IV Last administered on 12/28/16 20:46; Start 12/13/16 at 20:00; Stop 12/29/16 at 19:59 Hydromorphone HCl (Dilaudid Pf Inj) 1.5 mg ONCE ONCE IV PUSH Last administered on 12/14/16 23:18; Start 12/14/16 at 22:45; Stop 12/14/16 at 22:46; Status DC Potassium Chloride 100 ml @ 50 mls/hr Q2H IV Last administered on 12/15/16 04: 37; Start 12/15/16 at 01:15; Stop 12/15/16 at 05:14; Status DC Potassium Chloride (KCl) 40 meq ONCE ONCE PO ; Start 12/15/16 at 01:15; Stop 12/15/16 at 01:50; Status DC Potassium Bicarb/ Potassium Chloride (K-Lyte Cl Eff) 50 meq ONCE ONCE PO Last administered on 12/15/16 01:58; Start 12/15/16 at 02:00; Stop 12/15/16 at 02: 01; Status DC Magnesium Sulfate/ Dextrose 100 ml @ 100 mls/hr ONCE ONCE IV Last administered on 12/15/16 10:55; Start 12/15/16 at 09:00; Stop 12/15/16 at 09:59; Status DC Fentanyl (Duragesic 25 Mcg Patch.72 Hr) 1 patch Q3D T-DERMAL Last administered on 12/18/16 12:16; Start 12/15/16 at 12:00; Stop 12/20/16 at 17:53 ; Status DC Miscellaneous Information 1 Q3D T-DERMAL Last administered on 12/18/16 12:00; Start 12/18/16 at 12:00; Stop 12/20/16 at 17:53; Status DC Heparin Sodium (Porcine) (Heparin Central Flush) 200 units ONCE ONCE IV FLUSH Last administered on 12/16/16 09:42; Start 12/16/16 at 09:15; Stop 12/16/16 at 09:21; Status DC Potassium Chloride (KCl) 40 meq ONCE ONCE PO Last administered on 12/16/16 17 :47; Start 12/16/16 at 17:00; Stop 12/16/16 at 17:01; Status DC Potassium Chloride 100 ml @ 100 mls/hr Q1H IV Last administered on 12/17/16 00:46; Start 12/16/16 at 22:15; Stop 12/17/16 at 01:14; Status DC Lactated Ringer's 1,000 ml @ 30 mls/hr Q24H PRN IV SEE LABEL COMMENTS; Start at 02:30; Stop 12/20/16 at 02:29; Status DC Povidone Iodine (Betadine 5% Antisepsis Kit) 1 applic PELLET PREPARATION OPERATOR PRN EACH NARE SEE LABEL COMMENTS; Start 12/17/16 at 02:30; Stop 12/20/16 at 02:29; Status DC Chlorhexidine Gluconate (Chlorhexidine 2% Cloth) 3 pack PELLET PREPARATION OPERATOR PRN TOPICAL SEE LABEL COMMENTS; Start 12/17/16 at 02:30; Stop 12/20/16 at 02:29; Status DC Insulin Human Regular (NovoLIN R INJ) See Protocol Table ... PELLET PREPARATION OPERATOR PRN SQ SEE PROTOCOL TABLE; Start 12/17/16 at 02:30; Stop 12/20/16 at 02:29; Status DC Silver Nitrate/ Potassium Nitrate (Silver Nitrate Applicators) 4 appl STK-MED ONCE TOPICAL Last administered on 12/17/16 15:19; Start 12/17/16 at 15:19; Stop 12/17/16 at 17:45; Status DC Propofol (Diprivan 200 Mg/20 ml Inj) 320 mg STK-MED ONCE IV ; Start 12/17/16 at 15:19; Stop 12/17/16 at 17:48; Status DC Potassium Chloride 100 ml @ 50 mls/hr Q2H IV Last administered on 12/18/16 12 :16; Start 12/18/16 at 09:00; Stop 12/18/16 at 12:59; Status DC Lidocaine/ Diphenhydr/Alum/ Mg/Simeth (Magic Mouthwash Pediatric/Adult Liq) 5 ml ACHS SWISH-SWAL Last administered on 12/23/16 21:49; Start 12/19/16 at 16: 00; Stop 12/24/16 at 17:59; Status DC Nystatin (Mycostatin Liq) 5 ml QID SWISH-SWAL Last administered on 12/29/16 08:31; Start 12/19/16 at 18:00 Potassium Chloride 100 ml @ 50 mls/hr Q2H IV Last administered on 12/20/16 17 :33; Start 12/20/16 at 08:30; Stop 12/20/16 at 12:29; Status DC Magnesium Sulfate/ Dextrose 100 ml @ 100 mls/hr ONCE ONCE IV Last administered on 12/20/16 10:02; Start 12/20/16 at 08:30; Stop 12/20/16 at 09:29 ; Status DC Ipratropium [place] (Atrovent Neb) 0.5 mg Q4HR NEB NEB Last administered on 16:03; Start 12/20/16 at 20:00 Guaifenesin (Mucinex Er) 600 mg BID PO Last administered on 12/20/16 22:00; Start 12/20/16 at 21:00; Stop 12/21/16 at 09:45; Status DC Venlafaxine HCl (Effexor) 25 mg DAILY PO Last administered on 12/20/16 19:21; Start 12/20/16 at 18:00; Stop 12/21/16 at 18:01; Status DC Fentanyl (Duragesic 50 Mcg Patch.72 Hr) 1 patch Q3D T-DERMAL Last administered on 12/20/16 19:19; Start 12/20/16 at 18:00; Stop 12/24/16 at 17:59 ; Status DC Miscellaneous Information 1 Q3D T-DERMAL Last administered on 12/26/16 18:00; Start 12/20/16 at 18:00 Magnesium Sulfate/ Dextrose 100 ml @ 100 mls/hr Q1H IV Last administered on 11:17; Start 12/21/16 at 09:45; Stop 12/21/16 at 11:44; Status DC Potassium Chloride 100 ml @ 50 mls/hr Q2H IV ; Start 12/21/16 at 09:45; Stop at 13:44; Status Cancel Guaifenesin (Robitussin Liq) 600 mg BID PO Last administered on 12/28/16 08:22 ; Start 12/21/16 at 09:45 Magnesium Sulfate/ Dextrose 100 ml @ 100 mls/hr Q1H IV Last administered on 14:55; Start 12/21/16 at 14:45; Stop 12/21/16 at 15:44; Status DC Potassium Chloride 100 ml @ 50 mls/hr Q2H IV Last administered on 12/21/16 20 :32; Start 12/21/16 at 17:00; Stop 12/21/16 at 20:59; Status DC Sodium Chloride 250 ml @ 15 mls/hr ONCE ONCE IV Last administered on 13:17; Start 12/22/16 at 08:45; Stop 12/23/16 at 01:24; Status DC Acetaminophen (Tylenol) 650 mg Q4H PRN PO SEE LABEL COMMENTS; Start 12/22/16 at 08:45; Stop 12/22/16 at 12:46; Status DC Diphenhydramine HCl (Benadryl) 25 mg Q4H PRN PO SEE LABEL COMMENTS; Start 12/22 at 08:45; Stop 12/22/16 at 12:46; Status DC Furosemide (Lasix Inj) 20 mg ONCE ONCE IV Last administered on 12/22/16 16:31 ; Start 12/22/16 at 08:45; Stop 12/22/16 at 08:46; Status DC Acetaminophen (Tylenol) 650 mg Q4H PRN PO SEE LABEL COMMENTS Last administered on 12/22/16 13:59; Start 12/22/16 at 14:00; Stop 12/22/16 at 18:01; Status DC Diphenhydramine HCl (Benadryl) 25 mg Q4H PRN PO SEE LABEL COMMENTS Last administered on 12/22/16 17:18; Start 12/22/16 at 14:00; Stop 12/22/16 at 18:01 ; Status DC Patient Own Medication PT OWN MED: TRANXENE-T (CLORAZEPA... TID PO Last administered on 12/29/16 08:30; Start 12/23/16 at 13:00; Status Future hold Diatrizoate Meglum/ Diatrizoate Sod ( Gastrodina Liq) 240 ml STK-MED ONCE PO Last administered on 12/23/16 09:45; Start 12/23/16 at 09:45; Stop 12/23/16 at 10:14; Status DC Iron Sucrose 200 mg/Sodium Chloride 110 ml @ 110 mls/hr DAILY IV Last administered on 12/26/16 08:23; Start 12/24/16 at 09:00; Stop 12/26/16 at 09:59 ; Status DC Lactated Ringer's 1,000 ml @ 30 mls/hr Q24H PRN IV SEE LABEL COMMENTS; Start at 03:30; Stop 12/27/16 at 03:29; Status DC Sodium Chloride 500 ml @ 30 mls/hr [id number] PRN IV SEE LABEL COMMENTS; Start at 03:30; Stop 12/27/16 at 03:29; Status DC Morphine Sulfate (*morphine INJ PERIprocedure ONLY) 8 mg STK-MED ONCE .ROUTE Last administered on 12/24/16 12:29; Start 12/24/16 at 12:29; Stop 12/24/16 at 12:30; Status DC Pantoprazole Sodium (Protonix) 40 mg Q12HR PO Last administered on 12/29/16 08 :28; Start 12/24/16 at 12:45 Miscellaneous Information ALL NURSING DEPARTME... UNSCH PRN .XX SEE LABEL COMMENTS; Start 12/24/16 at 13:45; Stop 12/25/16 at 13:44; Status DC Propofol (Diprivan 200 Mg/20 ml Inj) 300 mg STK-MED ONCE IV ; Start 12/24/16 at 11:40; Stop 12/24/16 at 15:16; Status DC Ondansetron HCl (Zofran Inj) 4 mg Q4HR PRN IV PUSH N/V Last administered on 01:27; Start 12/24/16 at 18:00 Potassium Chloride 100 ml @ 100 mls/hr Q1H IV ; Start 12/25/16 at 10:30; Stop 12/25/16 at 13:29; Status DC Magnesium Sulfate/ Dextrose 100 ml @ 100 mls/hr ONCE ONCE IV Last administered on 12/25/16 11:16; Start 12/25/16 at 10:30; Stop 12/25/16 at 11:29 ; Status DC Morphine Sulfate (Oramorph Sr) 30 mg Q12HR PO Last administered on 12/28/16 08 :21; Start 12/26/16 at 21:00; Stop 12/28/16 at 14:20; Status DC Acetaminophen (Tylenol) 650 mg ONCE ONCE PO Last administered on 12/28/16 02: 12; Start 12/27/16 at 22:30; Stop 12/27/16 at 22:31; Status DC Diphenhydramine HCl (Benadryl) 25 mg ONCE ONCE PO Last administered on 02:12; Start 12/27/16 at 22:30; Stop 12/27/16 at 22:31; Status DC Multivitamins 10 ml/Folic Acid 1 mg/Amino Acids/ Electrolytes/ Dextrose 1,010.2 ml @ 40 mls/hr Q24H IV ; Start 12/29/16 at 20:00 Morphine Sulfate (Oramorph Sr) 15 mg BID PO Last administered on 12/29/16 08: 28; Start 12/28/16 at 21:00 Oxycodone HCl (Roxicodone) 5 mg Q6H PRN PO PAIN SCALE 1 TO 4; Start 12/28/16 at 14:30; Stop 12/28/16 at 14:30; Status DC Oxycodone HCl (Roxicodone) 5 mg Q4H PRN PO PAIN SCALE 1 TO 4 Last administered on 12/28/16 16:08; Start 12/28/16 at 14:30 A/P Assessment and Plan - 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 - ID was consulted; All abx discontinued on 12/13/2016 per ID. - Continue TPN and continue to taper down. -continue with pain control. - Patient underwent EGD with clip placement on 12/17/2016. EGD with Dilatation and possible stent placement once fistula heals. Status post EGD and stent placement and PEG placement on 12.24--> EGD showed Radiation esophagitis, Esophageal stricture, Gastrocutaneous fistula, Gastric ulcers, her PEG tube is been placed for Gastrocutaneous fistula closure not for feeding purposes evaluated by surgery- GI following. - Radiation induced esophageal stricture - Esophageal dilatation done recently. - Status post EGD and PEG placed. - History of Non-small cell lung cancer, further management by it technical support specialist once patient improve actual condition. - s/p chemo, radiation therapy. - Left sided pleural effusion - Etiology is not clear. Can be observed. - If persistent, diagnostic thoracentesis can be considered to rule out lung cancer progression. -will try to wean off the oxygen- might need walk test prior to discharge. - hypokalemia- improved. - Hypothyroidism - continue Levothyroxine. - Hypertension - continue lisinopril- will monitor. - Oral Thrush on Nystatin Improving. -Anemia - s/p PRBC transfusion; H/H stable- will monitor H/H. oncology following. DVT prophylaxis; SCD's Nakita Lopez MD Dec 29, 2016 08:42
--- NOTE | 2016-12-29 15:32 | PD.ONC.PN ---
Subjective Subjective Remarks Afebrile overnight She is upset that someone wanted to increase her TPN; however she could not tell me who this was Reports that she had a banana and yogurt, and her daughter is bringing her something from home as well She has just taken an oxycodone for pain Objective Data Date Time Temp Pulse Resp B/P (MAP) Pulse Ox O2 Delivery O2 Flow Rate FiO2 12/29/16 12:00 97.2 109 20 156/69 (98) 92 12/29/16 08:00 97.4 114 20 154/68 (96) 91 12/29/16 00:00 99.4 113 18 145/67 (93) 93 12/28/16 20:00 97.3 106 18 153/67 (95) 97 12/28/16 16:00 97.9 99 18 118/55 (76) 93 12/29/16 12/29/16 12/29/16 07:00 15:00 23:00 Intake Total 2479 ml Output Total 3 ml Balance 2476 ml Result Diagram: 12/29/16 0632 12/29/16 0632 Laboratory Results Laboratory Tests Test 12/29/16 06:32 White Blood Count 8.6 TH/MM3 Red Blood Count 3.61 MIL/MM3 Hemoglobin 9.9 GM/DL Hematocrit 31.2 % Mean Corpuscular Volume 86.4 FL Mean Corpuscular Hemoglobin 27.5 PG Mean Corpuscular Hemoglobin Concent 31.8 % Red Cell Distribution Width 22.8 % Platelet Count 211 TH/MM3 Mean Platelet Volume 9.2 FL Neutrophils (%) (Auto) 81.9 % Lymphocytes (%) (Auto) 6.8 % Monocytes (%) (Auto) 7.4 % Eosinophils (%) (Auto) 3.5 % Basophils (%) (Auto) 0.4 % Neutrophils # (Auto) 7.0 TH/MM3 Lymphocytes # (Auto) 0.6 TH/MM3 Monocytes # (Auto) 0.6 TH/MM3 Eosinophils # (Auto) 0.3 TH/MM3 Basophils # (Auto) 0.0 TH/MM3 CBC Comment DIFF FINAL Differential Comment Blood Urea Nitrogen 13 MG/DL Creatinine 0.43 MG/DL Random Glucose 98 MG/DL Calcium Level 8.0 MG/DL Sodium Level 138 MEQ/L Potassium Level 3.5 MEQ/L Chloride Level 102 MEQ/L Carbon Dioxide Level 30.0 MEQ/L Anion Gap 6 MEQ/L Estimat Glomerular Filtration Rate 142 ML/MIN Administered Medications Medications (Trade) Dose Ordered Sig/Alla Route PRN Reason Start Time Stop Time Status Last Admin Dose Admin Sodium Chloride (NS Flush) 2 ml BID IV FLUSH 12/10/16 21:00 12/28/16 20:48 Enoxaparin Sodium (Lovenox Inj) 40 mg Q24H SQ 12/10/16 22:45 Future Hold 12/23/16 21:59 Amitriptyline HCl (Elavil) 25 mg HS PO 12/11/16 21:00 12/28/16 20:47 Levothyroxine Sodium (Synthroid) 75 mcg DAILY@07 PO 12/11/16 07:00 12/29/16 05:09 Lisinopril (Prinivil) 10 mg DAILY PO 12/11/16 09:00 12/29/16 08:28 Fat Emulsion Intravenous 250 ml @ 10 mls/hr Q24H IV-CENTRAL 12/11/16 20:00 12/28/16 20:46 Hydromorphone HCl (Dilaudid Pf Inj) 1 mg Q3H PRN IV PUSH PAIN SCALE 5 TO 10 12/12/16 14:45 12/29/16 05:05 Multivitamins 10 ml/Folic Acid 1 mg/Amino Acids/ Electrolytes/ Dextrose 2,010.2 ml @ 40 mls/hr Q24H IV 12/13/16 20:00 12/29/16 19:59 12/28/16 20:46 Nystatin (Mycostatin Liq) 5 ml QID SWISH-SWAL 12/19/16 18:00 12/29/16 12:42 Ipratropium [place] (Atrovent Neb) 0.5 mg Q4HR NEB NEB 12/20/16 20:00 12/27/16 16:03 Miscellaneous Information 1 Q3D T-DERMAL 12/20/16 18:00 12/26/16 18:00 Guaifenesin (Robitussin Liq) 600 mg BID PO 12/21/16 09:45 12/28/16 08:22 Patient Own Medication PT OWN MED: TRANXENE-T (CLORAZEPA... TID PO 12/23/16 13:00 Future hold 12/29/16 12:42 Pantoprazole Sodium (Protonix) 40 mg Q12HR PO 12/24/16 12:45 12/29/16 08:28 Ondansetron HCl (Zofran Inj) 4 mg Q4HR PRN IV PUSH N/V 12/24/16 18:00 12/29/16 12:46 Morphine Sulfate (Oramorph Sr) 15 mg BID PO 12/28/16 21:00 12/29/16 08:28 Oxycodone HCl (Roxicodone) 5 mg Q4H PRN PO PAIN SCALE 1 TO 4 12/28/16 14:30 12/29/16 12:42 Objective Remarks GENERAL: Elderly female upright in bed. SKIN: Warm and dry. HEAD: Normocephalic. EYES: No injection or drainage. NECK: Supple, trachea midline. CARDIOVASCULAR: Regular rate and rhythm RESPIRATORY: Scattered wheezes posteriorly. GASTROINTESTINAL: Abdomen soft, non-distended. PEG tube clamped. EXTREMITIES: No cyanosis. No edema. NEUROLOGICAL: Normal speech. Moving all extremities. No obvious deficit. 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 --Due to significant dysphagia a PEG tube was placed. --had complications from the PEG tube insertion site. --++large amount of leakage and a copious amount of purulent drainage from the PEG tube insertion site. +concern for abdominal wall fistula. --EGD and stent placement and PEG placement on 12.24-->EGD showed Radiation esophagitis, Esophageal stricture, Gastrocutaneous fistula, Gastric ulcers --upper GI series, 12/23-->No evidence of fistula or obstruction. Small diverticulum along the distal esophagus. (2) Non-small cell lung cancer (NSCLC) ICD Codes: C34.90 - Malignant neoplasm of unspecified part of unspecified bronchus or lung Status: Acute Plan: --further treatment in clinic once improvement in current conditions History: diagnosed via CT-guided biopsy in June of 2016. PET/CT scan confirmed this disease to be Stage III-B. --received concurrent chemotherapy and radiation treatments. --had a total of four cycles of chemotherapy. --Follow-up imaging showed a residual lung lesion in the left upper lobe which was 1.8 x 2.4 x 3.8 cm. The patient was recommended two additional consolidation treatments but unfortunately due to her decline in performance status, she was not able to be given this treatment. (3) Normocytic anemia ICD Codes: D64.9 - Anemia, unspecified Status: Acute Plan: monitor and transfuse as needed, given iron IV History: --patient became severely anemic with a hemoglobin in the 6 range and she was given 2 units of packed red blood cells. --no evidence of hemolysis. --likely losing blood through the GI tract. --also a component of malnutrition. --currently being seen by GI and further workup is ongoing. --ordered daily IV iron x 3 treatments. (4) Pain ICD Codes: R52 - Pain, unspecified Status: Acute Plan: --on IV Dilaudid p.r.n. 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 currently getting wound care. --has also been evaluated by Surgery and there are no surgical plans at this time. Assessment 76y/o female with a history of [id number] lung cancer who was admitted to the hospital for complications from radiation esophagitis. h/o History of [id number] lung cancer, Stage III-B, status post concurrent chemotherapy and radiation treatment. Esophageal strictures status post dilatation x 4. Hypertension. Port placement. Lung biopsy. Hysterectomy. Tonsillectomy. PEG tube placement. Plan 1. TPN infusing at 20 mL per hour. If she continues to have increased po intake we can wean off tomorrow. 2. The patient was unable to maintain O2 sats of greater than 91% off oxygen; discussed with RN. We will continue to attempt to wean O2 as tolerated 3. Pt reports she is trying to use oral oxycodone prior to Dilaudid 4. Monitor CBC Discussed with RN Attending Statement The exam, history, and the medical decision-making described in the above note were completed with the assistance of the mid-level provider. I reviewed and agree with the findings presented. I attest that I had a [id number] encounter with the patient on the same day, and personally performed and documented my assessment and findings in the medical record Isabel Navarro Dec 29, 2016 15:32 Montrell Montiel MD Dec 30, 2016 00:20
[2016-12-29] MEDS: REMOVE OLD DURAGESIC (FENTANYL) PATCH T-DERMAL SCH (17:36)
[2016-12-29] MEDS: AMITRIPTYLINE HCL 25 MG TAB PO SCH ×2 (19:48→21:00)
[2016-12-29] MEDS: MULTIVITAMIN INJ 10 ML, FOLIC ACID INJ 1 MG in AMINO ACID IN D5W W/ELECTROLYT 1,000 ML IV SCH ×3 (19:49)
[2016-12-29] MEDS: FAT EMULSION 20% INJ 250 ML (@10 mls/hr) IV-CENTRAL SCH (19:49)
[2016-12-29] MEDS ORDERED: RESP: IPRATROPIUM 0.5 MG/2.5 ML NEB NEB PRN (21:15)
[2016-12-29 21:32] LABS: BLOOD GAS BASE EXCESS 4.9 mmol/L (-2-2); BLOOD GAS CARBOXYHEMOGLOBIN 2.1 % (0-4); BLOOD GAS HCO3 28 mmol/L (22-26); BLOOD GAS METHEMOGLOBIN 0.7 % (0-2); BLOOD GAS O2 HGB SATURATION 97 % (90-100); BLOOD GAS OXYGEN CONTENT 15.4 Vol % (12.0-20.0); BLOOD GAS PCO2 36 mmHg (38-42); BLOOD GAS PO2 121 mmHg (61-120); BLOOD GAS TOTAL HGB 11.2 G/DL (12.0-16.0); TEMP CORR TO 98.6
[2016-12-29 21:34] LABS: CRITICAL VALUE YES; DRAW SITE RT BRACHIAL; LITER FLOW 15 L/M; NUMBER OF ARTERIAL PUNCTURES 2; OXYGEN DEVICE NON REBREATHER; STAT YES
--- NOTE | 2016-12-29 21:40 | RADRPT ---
EXAM DATE/TIME: 12/29/2016 21:11 [place] COMPARISON: CHEST SINGLE AP, December 21, 2016, 10:41. INDICATIONS : Respiratory distress. MEDICAL HISTORY : Hypertension. Cardiovascular disease Carcinoma, lung. SURGICAL HISTORY : Hysterectomy. G-tube and reversal ENCOUNTER: Subsequent ACUITY: 1 day PAIN SCORE: 2/10 LOCATION: Bilateral chest FINDINGS: Esophageal stent is present. The bilateral effusions and basilar airspace disease slightly increased from December 21. No pneumothorax. Tortuous aorta. Right [id number] in superior vena cava. CONCLUSION: 1. Increase in basilar airspace disease and small pleural effusions compared with December 21. Tio Espinoza MD on December 29, 2016 at 21:33 Board Certified Radiologist. This report was verified electronically.
[2016-12-29] MEDS ORDERED: methylPREDNISolone SOD SUCC 125 MG/2 ML VIAL IV PUSH ONE (22:00)
[2016-12-29] MEDS ORDERED: BUMETANIDE INJ 1 MG/4 ML VIAL IV PUSH ONE (22:00)
[2016-12-29] MEDS ORDERED: ENOXAPARIN SODIUM 60 MG/0.6 ML SYRINGE SQ ONE (22:15)
[2016-12-29 22:36] LABS: AUTOMATED NEUTROPHIL # 13.7 TH/MM3 (1.8-7.7); BASOPHIL % 0.3 % (0.0-2.0); EOSINOPHIL % 0.1 % (0.0-4.0); HEMATOCRIT 33.8 % (35.0-46.0); HEMO FLAGS DIFF FINAL; LYMPH % 2.4 % (9.0-44.0); LYMPHOCYTE # 0.4 TH/MM3 (1.0-4.8); MEAN CELL VOLUME 84.2 FL (80.0-100.0); MEAN CORPUSCULAR HEMOGLOBIN 26.5 PG (27.0-34.0); MEAN CORPUSCULAR HGB CONC 31.5 % (32.0-36.0); NEUT % 92.2 % (16.0-70.0); PLATELET COUNT 244 TH/MM3 (150-450); RED BLOOD COUNT 4.01 MIL/MM3 (4.00-5.30); RED CELL DISTRIBUTION WIDTH 21.8 % (11.6-17.2); WHITE BLOOD COUNT 14.8 TH/MM3 (4.0-11.0)
--- NOTE | 2016-12-29 22:43 | PD.CONS ---
[facility] Service Critical Care Medicine Consult Requested By Primary Care Physician Radha Berumen MD History of Present Illness 75-year-old female with a history of Stage III poorly differentiated non-small cell lung cancer diagnosed via CT-guided biopsy in June of 2016. She received concurrent chemotherapy and radiation treatments. She had a total of four cycles of chemotherapy. The patient was recommended two additional consolidation treatments but unfortunately due to her decline in performance status, she was not able to be given this treatment. She developed swallowing difficulty due to a postradiation esophageal stricture. She had dilatation without improvement of her symptoms. She continued to have dysphagia and a PEG tube was placed. She has had developed severe complications from the PEG tube insertion site with a large amount of leakage and a copious amount of purulent drainage from the PEG tube insertion site due to abdominal wall fistula. Her fistula tract is closed at the gastric end. The patient is currently on TPN. Her respiratory status was progressively getting worse over the past few days, and rapid response team was called due to severe hypoxemia at 15 weeks December 29 late night. The patient is transferred to ICU and critical care medicine is consulted for further management. Review of Systems Constitutional: DENIES: Diaphoretic episodes, Fatigue, Fever, Weight gain, Weight loss, Chills, Dizziness, Change in appetite, Night Sweats Endocrine: DENIES: Abnorml menstrual pattern, Heat/cold intolerance, Polydipsia , Polyuria, Polyphagia Eyes: DENIES: Blurred vision, Diplopia, Eye inflammation, Eye pain, Vision loss , Photosensitivity, Double Vision Ears, nose, mouth, throat: DENIES: Tinnitus, Hearing loss, Vertigo, Nasal discharge, Oral lesions, Throat pain, Hoarseness, Ear Pain, Running Nose, Epistaxis, Sinus Pain, Toothache, Odynophagia Respiratory: COMPLAINS OF: Wheezing, Sputum production, Shortness of breath, DENIES: Apneas, Cough, Snoring, Hemoptysis Cardiovascular: DENIES: Chest pain, Palpitations, Syncope, Dyspnea on Exertion , PND, Lower Extremity Edema, Orthopnea, Claudication Gastrointestinal: COMPLAINS OF: Abdominal pain, DENIES: Black stools, Bloody stools, Constipation, Diarrhea, Nausea, Vomiting, Difficulty Swallowing, Anorexia Genitourinary: DENIES: Abnormal vaginal bleeding, Dysmenorrhea, Dyspareunia, Sexual dysfunction, Urinary frequency, Urinary incontinence, Urgency, Hematuria , Dysuria, Nocturia, Vaginal discharge Musculoskeletal: DENIES: Joint pain, Muscle aches, Stiffness, Joint Swelling, Back pain, Neck pain Integumentary: DENIES: Abnormal pigmentation, Pruritus, Rash, Nail changes, Breast masses, Breast skin changes, Nipple discharge Hematologic/lymphatic: DENIES: Bruising, Lymphadenopathy Immunologic/allergic: DENIES: Eczema, Urticaria Neurologic: DENIES: Abnormal gait, Headache, Localized weakness, Paresthesias, Seizures, Speech Problems, Tremor, Poor Balance Psychiatric: DENIES: Anxiety, Confusion, Mood changes, Depression, Hallucinations, Agitation, Suicidal Ideation, Homicidal Ideation, Delusions Past Family Social History Allergies: Coded Allergies: Sulfa (Sulfonamide Antibiotics) (Unverified Allergy, Severe, SWELLING, ) Past Medical History Non-small cell carcinoma of the lung, s/p chemo/rdx Esophageal strictures Radiation esophagitis HTN Hypothyroidism COPD Cellulitis PEG tube site GERD Hyperlipidemia Macular degeneration Past Surgical History Hysterectomy Ex Lap - found benign lymph node Biopsy lymph node Pleural biopsy Colonoscopy EGD with dilatation EGD with PEG Tonsillectomy Tubal ligation Reported Medications Reported Meds & Active Scripts Active Reported Amoxicillin Liq (Amoxicillin) 125 Mg/5 Ml Susp Unknown Dose PO TID 75 mg (3 mL). Take for 10 days. Hydrocodone-Acetaminophen Liq 7.5-325 Mg/15 Ml Soln 10 Ml PO Q6H PRN Levothyroxine (Levothyroxine Sodium) 75 Mcg Tab 75 Mcg PO DAILY Amitriptyline (Amitriptyline HCl) 25 Mg Tab 25 Mg PO HS Lisinopril 10 Mg Tab 10 Mg PO DAILY [Estrogen Patch] 1 Patch TOP WEEKLY Active Ordered Medications Current Medications Medications (Trade) Dose Ordered Sig/Alla Route PRN Reason Start Time Stop Time Status Last Admin Dose Admin Sodium Chloride (NS Flush) 2 ml BID IV FLUSH 12/10/16 21:00 12/28/16 20:48 Enoxaparin Sodium (Lovenox Inj) 40 mg Q24H SQ 12/10/16 22:45 Future Hold 12/23/16 21:59 Amitriptyline HCl (Elavil) 25 mg HS PO 12/11/16 21:00 12/28/16 20:47 Levothyroxine Sodium (Synthroid) 75 mcg DAILY@07 PO 12/11/16 07:00 12/29/16 05:09 Lisinopril (Prinivil) 10 mg DAILY PO 12/11/16 09:00 12/29/16 08:28 Fat Emulsion Intravenous 250 ml @ 10 mls/hr Q24H IV-CENTRAL 12/11/16 20:00 12/29/16 19:49 Hydromorphone HCl (Dilaudid Pf Inj) 1 mg Q3H PRN IV PUSH PAIN SCALE 5 TO 10 12/12/16 14:45 12/29/16 05:05 Nystatin (Mycostatin Liq) 5 ml QID SWISH-SWAL 12/19/16 18:00 12/29/16 19:46 Miscellaneous Information 1 Q3D T-DERMAL 12/20/16 18:00 12/26/16 18:00 Guaifenesin (Robitussin Liq) 600 mg BID PO 12/21/16 09:45 12/28/16 08:22 Patient Own Medication PT OWN MED: TRANXENE-T (CLORAZEPA... TID PO 12/23/16 13:00 Future hold 12/29/16 17:37 Pantoprazole Sodium (Protonix) 40 mg Q12HR PO 12/24/16 12:45 12/29/16 08:28 Ondansetron HCl (Zofran Inj) 4 mg Q4HR PRN IV PUSH N/V 12/24/16 18:00 12/29/16 19:46 Multivitamins 10 ml/Folic Acid 1 mg/Amino Acids/ Electrolytes/ Dextrose 1,010.2 ml @ 20 mls/hr Q24H IV 12/29/16 20:00 12/29/16 19:49 Morphine Sulfate (Oramorph Sr) 15 mg BID PO 12/28/16 21:00 12/29/16 08:28 Oxycodone HCl (Roxicodone) 5 mg Q4H PRN PO PAIN SCALE 1 TO 4 12/28/16 14:30 12/29/16 12:42 Ipratropium [place] (Atrovent Neb) 0.5 mg Q6HR NEB NEB 12/29/16 22:00 12/29/16 22:19 Ipratropium [place] (Atrovent Neb) 0.5 mg Q2HR NEB PRN NEB wheezing 12/29/16 21:15 Piperacillin Sod/ Tazobactam Sod 100 ml @ 200 mls/hr Q6H IV 12/30/16 03:00 Pharmacy Profile Note 0 ml @ 0 mls/hr UNSCH OTHER 12/30/16 02:30 Family History Mother pancreatic cancer Father colorectal cancer Social History Currently nonsmoking, no history of alcohol or illicit drug abuse Physical Exam Vital Signs Vital Signs Date Time Temp Pulse Resp B/P (MAP) Pulse Ox O2 Delivery O2 Flow Rate FiO2 12/29/16 22:20 100 High Flow Nasal Cannula 20.00 100 12/29/16 15:47 97.0 109 20 138/72 (94) 92 12/29/16 12:00 97.2 109 20 156/69 (98) 92 12/29/16 08:00 97.4 114 20 154/68 (96) 91 12/29/16 00:00 99.4 113 18 145/67 (93) 93 Physical Exam GENERAL: Elderly appearing woman in no acute distress SKIN: Warm and dry. HEAD: Normocephalic. EYES: No scleral icterus. No injection or drainage. NECK: Supple, trachea midline. No JVD or lymphadenopathy. CARDIOVASCULAR: Regular rate and rhythm without murmurs, gallops, or rubs. RESPIRATORY: Breath sounds equal bilaterally. No accessory muscle use. GASTROINTESTINAL: Abdomen soft, non-tender, nondistended. MUSCULOSKELETAL: No cyanosis, or edema. BACK: Nontender without obvious deformity. NEURO EXAM: GCS: M6 V5 E4 Mental Status: The patient is alert and oriented to person, place, and time with normal speech. Cranial Nerves: Visual acuity intact bilaterally. Visual mccracken normal in all quadrants. Pupils are round, reactive to light. Extraocular movements are intact without ptosis. Hearing is normal bilaterally. Voice is normal. Tongue protrudes midline and moves symmetrically. Reflexes: Biceps, patellar, and Achilles are 2/4 bilaterally. No clonus. Sensation: Sensation is intact bilaterally to pain and light touch. Two-point discrimination is intact. Motor: Good muscle tone. Strength is 5/5 bilaterally. Cerebellar: [id number] and ujrj-[id number] test normal bilaterally. Laboratory Laboratory Tests Test 12/29/16 06:32 12/29/16 21:14 12/29/16 22:21 White Blood Count 8.6 14.8 Red Blood Count 3.61 4.01 Hemoglobin 9.9 10.6 Hematocrit 31.2 33.8 Mean Corpuscular Volume 86.4 84.2 Mean Corpuscular Hemoglobin 27.5 26.5 Mean Corpuscular Hemoglobin Concent 31.8 31.5 Red Cell Distribution Width 22.8 21.8 Platelet Count 211 244 Mean Platelet Volume 9.2 8.0 Neutrophils (%) (Auto) 81.9 92.2 Lymphocytes (%) (Auto) 6.8 2.4 Monocytes (%) (Auto) 7.4 5.0 Eosinophils (%) (Auto) 3.5 0.1 Basophils (%) (Auto) 0.4 0.3 Neutrophils # (Auto) 7.0 13.7 Lymphocytes # (Auto) 0.6 0.4 Monocytes # (Auto) 0.6 0.7 Eosinophils # (Auto) 0.3 0.0 Basophils # (Auto) 0.0 0.0 CBC Comment DIFF FINAL DIFF FINAL Differential Comment Blood Urea Nitrogen 13 Creatinine 0.43 Random Glucose 98 Calcium Level 8.0 Sodium Level 138 Potassium Level 3.5 Chloride Level 102 Carbon Dioxide Level 30.0 Anion Gap 6 Estimat Glomerular Filtration Rate 142 Blood Gas Puncture Site RT BRACHIAL Blood Gas Patient Temperature 98.6 Blood Gas HCO3 28 Blood Gas Base Excess 4.9 Blood Gas Oxygen Saturation 97 Arterial Blood pH 7.51 Arterial Blood Partial Pressure CO2 36 Arterial Blood Partial Pressure O2 121 Arterial Blood Oxygen Content 15.4 Arterial Blood Carboxyhemoglobin 2.1 Arterial Blood Methemoglobin 0.7 Blood Gas Hemoglobin 11.2 Oxygen Delivery Device NON REBREATHER Blood Gas Liter Flow 15 Date/Time Source Procedure Growth Status 12/11/16 17:57 Fluid Other Gram Stain - Final Complete 12/11/16 17:57 Fluid Other Body Fluid Culture - Final NO GROWTH IN 72 HRS.--AEROBICALLY OR ... Complete 12/10/16 15:15 Wound Drainage Gram Stain - Final Complete 12/10/16 15:15 Wound Culture - Final Lactobacillus Species Complete Result Diagram: 12/29/16 0632 12/29/16 0632 Assessment and Plan Assessment and Plan Respiratory distress - CTA stat to rule out PE - Infiltrates on CXR - hospital-acquired versus aspiration pneumonia - Broad-spectrum antibiotics - Blood cultures, sputum cultures Abdominal wall fistula - Complication of PEG Tube placement - Continue TPN - Further management per GI Esophageal stricture - Postradiation - Continue nothing by mouth and TPN Non-small cell lung cancer - management by Oncology Hypothyroidism - Levothyroxine Hypertension - Lisinopril Anemia - Of chronic disease - Monitor H&H and transfuse for hemoglobin less than 7 DVT GI prophylaxis - Teds SCDs - Lovenox - Pantoprazole Critical Care: The total critical care time was 35 minutes. Time to perform other separately billable procedures was not included in the critical care time. Maynor Hathaway MD Dec 29, 2016 10:43 pm
--- NOTE | 2016-12-29 23:02 | HHI.PR ---
Addendum to Inpatient Note Addendum Reason: Additional Documentation Additional Information Rapid response was called on this patient at around 8:40 PM. Per nursing report, patient was found to be hypoxic with O2 sat around 50% on 1 L nasal cannular during the routine vital signs. Patient was also noted to be quite tachypneic with respiratory rate around 30s. Patient is usually on 3 L nasal cannular during her hospitalization. She was noted to be tachycardic with heart rate around 140. Came to see patient at the bedside. Chart reviewed. Patient is awake, alert, oriented. However in acute respiratory distress, using respiratory accessory muscles. She was on nonrebreather 100% FiO2, saturating around 96%. She reports of nausea. However has not vomited during her hospitalization. On exam, heart rate is regular, tachycardic around 140, no murmur appreciated. Lung exam revealed bilateral expiratory wheezing, with tight air entry. Abdomen is distended, mild tenderness diffusely, but soft. No guarding. Surgical dressing in place. Bilateral lower extremities did not reveal any calf asymmetry or edema. Impression: Acute hypoxic respiratory failure Possible COPD exacerbation Possible mild fluid overloadwith early cardiac asthma. However patient was receiving IV fluids about 40 cc per hour only. She was being weaned off from TPN. She was tolerating by mouth feeding per family and nursing staff. There was no witnessed episode of coughing after eating. Possible pulmonary embolis -given the patient was tachycardic, hypoxic. Patient 's Lovenox prophylactic dose was on hold for the past 5 days as well. Has been in hospital since December 10, 2013. Anemia baseline. We'll make sure no acute drop post procedures. Comorbid conditions Abdominal wall fistula - post EGD Lung cancerstatus post chemotherapy and radiation therapy Plan: Atrovent nebulizers scheduled and when necessary. Solu-Medrol 125 mg IV one push now. BiPAP stat. however patient is nauseous although she has not been vomiting at all. BiPAP would be used as a when necessary if she does not improve. She is at risk of respiratory failure requiring intubation. Transfer patient to ICU. High flow oxygen for now. Will give trial of Bumex 1 g IV 1 dose now given possible early cardiac asthma. There is no recorded echocardiogram here. Family denies prior history of CHF. ABG stat. Chest x-ray stat. Labs including BNP stat. We'll monitor for hemoglobin hematocrit as well. Lovenox 1 minute grams per kilogram subcutaneous [address] pulmonary angiogram. However would await for patient stabilization before sending her for any imaging studies. Nursing staff is informed. Reviewed ABG personally. Respiratory alkalosis. Chest agopersonally reviewed. Bilateral pulmonary venous congestion. Pending labs. Attempts to discuss CODE STATUS with patient and her daughter at the bedside. However patient is quite in distress and does not want to really talk about it. The daughter also tells me that she would much rather I asked this question to the patient. This topic was never discussed previously. At this point, patient will remain full code as she does not really want to talk about it and kept avoiding the topic. Would benefit from palliative care consult. Transfer patient to maintenance trainer service for critical care management. Discussed with maintenance trainer air traffic control specialist. Critical care time 40 minutes Stefany Chew MD Dec 29, 2016 23:02
[2016-12-29 23:03] LABS: ANION GAP 8 MEQ/L (5-15); AST (GOT) 22 U/L (15-37); BICARBONATE 31.3 MEQ/L (21.0-32.0); BLOOD UREA NITROGEN 9 MG/DL (7-18); CHLORIDE 95 MEQ/L (98-107); GLOMERULAR FILTRATION RATE 122 ML/MIN (>89); POTASSIUM 3.3 MEQ/L (3.5-5.1); SODIUM (NA) 134 MEQ/L (136-145)
[2016-12-29 23:06] LABS: ALKALINE PHOSPHATASE 188 U/L (45-117); ALT (GPT) 18 U/L (10-53); TOTAL BILIRUBIN ADULT 0.6 MG/DL (0.2-1.0)
--- NOTE | 2016-12-29 23:53 | PD.ONC.PN ---
Objective Data Date Time Temp Pulse Resp B/P (MAP) Pulse Ox O2 Delivery O2 Flow Rate FiO2 12/29/16 23:25 97 High Flow Nasal Cannula 20.00 90 12/29/16 22:20 100 High Flow Nasal Cannula 20.00 100 12/29/16 20:00 101.1 141 28 142/65 (90) 72 12/29/16 15:47 97.0 109 20 138/72 (94) 92 12/29/16 12:00 97.2 109 20 156/69 (98) 92 12/29/16 08:00 97.4 114 20 154/68 (96) 91 12/29/16 00:00 99.4 113 18 145/67 (93) 93 Result Diagram: 12/29/16222012/29/162220 Laboratory Results Laboratory Tests Test 12/29/16 06:32 12/29/16 21:14 12/29/16 22:21 White Blood Count 8.6 TH/MM3 14.8 TH/MM3 Red Blood Count 3.61 MIL/MM3 4.01 MIL/MM3 Hemoglobin 9.9 GM/DL 10.6 GM/DL Hematocrit 31.2 % 33.8 % Mean Corpuscular Volume 86.4 FL 84.2 FL Mean Corpuscular Hemoglobin 27.5 PG 26.5 PG Mean Corpuscular Hemoglobin Concent 31.8 % 31.5 % Red Cell Distribution Width 22.8 % 21.8 % Platelet Count 211 TH/MM3 244 TH/MM3 Mean Platelet Volume 9.2 FL 8.0 FL Neutrophils (%) (Auto) 81.9 % 92.2 % Lymphocytes (%) (Auto) 6.8 % 2.4 % Monocytes (%) (Auto) 7.4 % 5.0 % Eosinophils (%) (Auto) 3.5 % 0.1 % Basophils (%) (Auto) 0.4 % 0.3 % Neutrophils # (Auto) 7.0 TH/MM3 13.7 TH/MM3 Lymphocytes # (Auto) 0.6 TH/MM3 0.4 TH/MM3 Monocytes # (Auto) 0.6 TH/MM3 0.7 TH/MM3 Eosinophils # (Auto) 0.3 TH/MM3 0.0 TH/MM3 Basophils # (Auto) 0.0 TH/MM3 0.0 TH/MM3 CBC Comment DIFF FINAL DIFF FINAL Differential Comment Blood Urea Nitrogen 13 MG/DL 9 MG/DL Creatinine 0.43 MG/DL 0.49 MG/DL Random Glucose 98 MG/DL 104 MG/DL Calcium Level 8.0 MG/DL 8.2 MG/DL Sodium Level 138 MEQ/L 134 MEQ/L Potassium Level 3.5 MEQ/L 3.3 MEQ/L Chloride Level 102 MEQ/L 95 MEQ/L Carbon Dioxide Level 30.0 MEQ/L 31.3 MEQ/L Anion Gap 6 MEQ/L 8 MEQ/L Estimat Glomerular Filtration Rate 142 ML/MIN 122 ML/MIN Blood Gas Puncture Site RT BRACHIAL Blood Gas Patient Temperature 98.6 Blood Gas HCO3 28 mmol/L Blood Gas Base Excess 4.9 mmol/L Blood Gas Oxygen Saturation 97 % Arterial Blood pH 7.51 Arterial Blood Partial Pressure CO2 36 mmHg Arterial Blood Partial Pressure O2 121 mmHg Arterial Blood Oxygen Content 15.4 Vol % Arterial Blood Carboxyhemoglobin 2.1 % Arterial Blood Methemoglobin 0.7 % Blood Gas Hemoglobin 11.2 G/DL Oxygen Delivery Device NON REBREATHER Blood Gas Liter Flow 15 L/M Total Protein 7.1 GM/DL Albumin 2.2 GM/DL Alkaline Phosphatase 188 U/L Aspartate Amino Transf (AST/SGOT) 22 U/L Alanine Aminotransferase (ALT/SGPT) 18 U/L Total Bilirubin 0.6 MG/DL B-Type Natriuretic Peptide 385 PG/ML Imaging Studies Last 24 hours Impressions Chest X-Ray 12/29/16 0000 Signed Impressions: Service Date/Time: Thursday, December 29, 2016 21:11 - CONCLUSION: 1. Increase in basilar airspace disease and small pleural effusions compared with December 21. Tio Espinoza MD Administered Medications Medications (Trade) Dose Ordered Sig/Alla Route PRN Reason Start Time Stop Time Status Last Admin Dose Admin Sodium Chloride (NS Flush) 2 ml BID IV FLUSH 12/10/16 21:00 12/28/16 20:48 Enoxaparin Sodium (Lovenox Inj) 40 mg Q24H SQ 12/10/16 22:45 Future Hold 12/23/16 21:59 Amitriptyline HCl (Elavil) 25 mg HS PO 12/11/16 21:00 12/28/16 20:47 Levothyroxine Sodium (Synthroid) 75 mcg DAILY@07 PO 12/11/16 07:00 12/29/16 05:09 Lisinopril (Prinivil) 10 mg DAILY PO 12/11/16 09:00 12/29/16 08:28 Fat Emulsion Intravenous 250 ml @ 10 mls/hr Q24H IV-CENTRAL 12/11/16 20:00 12/29/16 19:49 Hydromorphone HCl (Dilaudid Pf Inj) 1 mg Q3H PRN IV PUSH PAIN SCALE 5 TO 10 12/12/16 14:45 12/29/16 05:05 Nystatin (Mycostatin Liq) 5 ml QID SWISH-SWAL 12/19/16 18:00 12/29/16 19:46 Miscellaneous Information 1 Q3D T-DERMAL 12/20/16 18:00 12/26/16 18:00 Guaifenesin (Robitussin Liq) 600 mg BID PO 12/21/16 09:45 12/28/16 08:22 Patient Own Medication PT OWN MED: TRANXENE-T (CLORAZEPA... TID PO 12/23/16 13:00 Future hold 12/29/16 17:37 Pantoprazole Sodium (Protonix) 40 mg Q12HR PO 12/24/16 12:45 12/29/16 08:28 Ondansetron HCl (Zofran Inj) 4 mg Q4HR PRN IV PUSH N/V 12/24/16 18:00 12/29/16 19:46 Multivitamins 10 ml/Folic Acid 1 mg/Amino Acids/ Electrolytes/ Dextrose 1,010.2 ml @ 20 mls/hr Q24H IV 12/29/16 20:00 12/29/16 19:49 Morphine Sulfate (Oramorph Sr) 15 mg BID PO 12/28/16 21:00 12/29/16 08:28 Oxycodone HCl (Roxicodone) 5 mg Q4H PRN PO PAIN SCALE 1 TO 4 12/28/16 14:30 12/29/16 12:42 Ipratropium Hecker (Atrovent Neb) 0.5 mg Q6HR NEB NEB 12/29/16 22:00 12/29/16 22:19 Objective Remarks GENERAL: Well-nourished, well-developed patient. SKIN: Warm and dry. HEAD: Normocephalic. EYES: No scleral icterus. No injection or drainage. NECK: Supple, trachea midline. No JVD or lymphadenopathy. LYMPHATIC: No adenopathy. CARDIOVASCULAR: Regular rate and rhythm without murmurs. RESPIRATORY: Breath sounds equal bilaterally. No accessory muscle use. GASTROINTESTINAL: Abdomen soft, non-tender, nondistended. EXTREMITIES: No cyanosis, or edema. MUSCULOSKELETAL: Adequate muscle tone. NEUROLOGICAL: No obvious focal deficit. Awake, alert, and oriented x3. PSYCHIATRIC: Appropriate mood and affect; insight and judgment normal. 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 --Due to significant dysphagia a PEG tube was placed. --had complications from the PEG tube insertion site. --++large amount of leakage and a copious amount of purulent drainage from the PEG tube insertion site. +concern for abdominal wall fistula. --EGD and stent placement and PEG placement on 12.24-->EGD showed Radiation esophagitis, Esophageal stricture, Gastrocutaneous fistula, Gastric ulcers --upper GI series, 12/23-->No evidence of fistula or obstruction. Small diverticulum along the distal esophagus. (2) Non-small cell lung cancer (NSCLC) ICD Codes: C34.90 - Malignant neoplasm of unspecified part of unspecified bronchus or lung Status: Acute Plan: --further treatment in clinic once improvement in current conditions History: diagnosed via CT-guided biopsy in June of 2016. PET/CT scan confirmed this disease to be Stage III-B. --received concurrent chemotherapy and radiation treatments. --had a total of four cycles of chemotherapy. --Follow-up imaging showed a residual lung lesion in the left upper lobe which was 1.8 x 2.4 x 3.8 cm. The patient was recommended two additional consolidation treatments but unfortunately due to her decline in performance status, she was not able to be given this treatment. (3) Normocytic anemia ICD Codes: D64.9 - Anemia, unspecified Status: Acute Plan: monitor and transfuse as needed, given iron IV History: --patient became severely anemic with a hemoglobin in the 6 range and she was given 2 units of packed red blood cells. --no evidence of hemolysis. --likely losing blood through the GI tract. --also a component of malnutrition. --currently being seen by GI and further workup is ongoing. --ordered daily IV iron x 3 treatments. (4) Pain ICD Codes: R52 - Pain, unspecified Status: Acute Plan: --on IV Dilaudid p.r.n. 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 currently getting wound care. --has also been evaluated by Surgery and there are no surgical plans at this time. Assessment 76y/o female with a history of [id number] lung cancer who was admitted to the hospital for complications from radiation esophagitis. h/o History of [id number] lung cancer, Stage III-B, status post concurrent chemotherapy and radiation treatment. Esophageal strictures status post dilatation x 4. Hypertension. Port placement. Lung biopsy. Hysterectomy. Tonsillectomy. PEG tube placement. Plan 1. TPN infusing at 20 mL per hour. If she continues to have increased po intake we can wean off tomorrow. 2. The patient was unable to maintain O2 sats of greater than 91% off oxygen; discussed with RN. We will continue to attempt to wean O2 as tolerated 3. Pt reports she is trying to use oral oxycodone prior to Dilaudid 4. Monitor CBC Discussed with Montrell Musa MD Dec 29, 2016 23:53
[2016-12-30] VITALS (8 sets, daily range): BP systolic 96–138; BP diastolic 51–109; PULSE 84–116; RESP 20–33; TEMP 97.8–99.5; O2SAT 92–100
[2016-12-30] MEDS ORDERED: IOHEXOL 350 MG/ML 10 ML VIAL (for RAD DIAG) IVCONTRAST ONE (01:17)
--- NOTE | 2016-12-30 01:41 | RADRPT ---
EXAM DATE/TIME: 12/30/2016 01:02 [facility] COMPARISON: No previous studies available for comparison. INDICATIONS : Chest pain,evaluate for pulmonary emoblism IV CONTRAST: 74 cc Omnipaque 350 (iohexol) IV RADIATION DOSE: 11.95 CTDIvol (mGy) MEDICAL HISTORY : Metastatic, lung. Hypertension. SURGICAL HISTORY : None. ENCOUNTER: Initial ACUITY: 2 weeks PAIN SCALE: 4/10 LOCATION: chest TECHNIQUE: Volumetric scanning of the chest was performed using a pulmonary embolism protocol MIP images were re constructed. Using automated exposure control and adjustment of the mA and/or kV according to patien t size, radiation dose was kept as low as reasonably achievable to obtain optimal diagnostic quality images. DICOM format image data is available electronically for review and comparison. Follow-up recommendations for detected pulmonary nodules are based at a minimum on nodule size and pa tient risk factors according to Fleischner Society Guidelines. FINDINGS: No filling defects identified in the pulmonary arteries to suggest embolic disease. There is moderate underlying emphysema in the upper lungs. Mass left lung apex measuring about 2.3 cm is stable in august earance since October. They are small bilateral pleural effusions, partially loculated on the left side with compressive atelectasis in both lungs, worse on the left side. An esophageal stent is present containing debris. There is abnormal soft tissue around the esophagus. No acute findings in the upper abdomen. CONCLUSION: 1. Negative for pulmonary embolus. 2. Esophageal stent present with abnormal soft tissue in the mediastinum around the esophageal stent. 3. Stable 2.3 cm nodule upper left lung. 4. Development of bilateral pleural effusions, left greater than right with partial loculation on the left side and compressive atelectasis in both lungs. Tio Espinoza MD on December 30, 2016 at 1:25 Board Certified Radiologist. This report was verified electronically.
[2016-12-30] MEDS ORDERED: Vancomycin Consult Pharmacy 1 EA OTHER SCH (02:30)
[2016-12-30] MEDS ORDERED: VANCOMYCIN INJ 1,000 MG in SODIUM CHLOR 0.9% 250 ML INJ 250 ML IV ONE (02:30)
[2016-12-30] MEDS: RESP: IPRATROPIUM 0.5 MG/2.5 ML NEB NEB SCH ×2 (04:25→08:48)
[2016-12-30] MEDS: PIPERACIL-TAZO 4.5 GM PREMIX 100 ML IV SCH ×4 (04:56→21:02)
[2016-12-30] MEDS: LEVOTHYROXINE SODIUM 75 MCG TAB PO SCH (06:41)
--- NOTE | 2016-12-30 08:25 | EKG ---
Date Performed: 12/29/2016 Time Performed: 21:11:26 PTAGE: 76 years EKG: Probable sinus tachycardia. Possible anteroseptal infarct - age undetermined Generalized lo w QRS voltages Abnormal ECG PREVIOUS TRACING : 11/19/2016 08.42 No significant change from previous tracing noted. DOCTOR: Eugene Alanis Interpretating Date/Time 12/30/2016 08:24:14
[2016-12-30] MEDS: CLORAZEPATE PO SCH ×3 (09:00→18:28)
[2016-12-30] MEDS: [UNRECOGNIZED DRUG - OTHER] PO SCH ×3 (09:00→18:28)
[2016-12-30] MEDS: guaiFENesin SOLUTION 200 MG/10 ML CUP PO SCH ×2 (09:00→21:00)
[2016-12-30] MEDS: LISINOPRIL 10 MG TAB PO SCH (10:39)
[2016-12-30] MEDS: MORPHINE SULFATE 15 MG CONTROLLED RELEASE TAB PO SCH ×2 (10:40→21:02)
[2016-12-30] MEDS: PANTOPRAZOLE SOD 40 MG DELAYED RELEASE TAB PO SCH ×2 (10:40→21:02)
[2016-12-30] MEDS: NYSTATIN SUSP 500,000 U/5 ML CUP SWISH-SWAL SCH ×4 (10:41→21:00)
[2016-12-30] MEDS: SODIUM CHLORIDE 0.9% FLUSH 10 ML FLUSH IV FLUSH SCH ×2 (10:41→21:00)
[2016-12-30 11:27] LABS: AUTOMATED NEUTROPHIL # 9.4 TH/MM3 (1.8-7.7); BASOPHIL % 0.2 % (0.0-2.0); HEMATOCRIT 33.6 % (35.0-46.0); HEMO FLAGS DIFF FINAL; LYMPHOCYTE # 0.5 TH/MM3 (1.0-4.8); MEAN CELL VOLUME 85.2 FL (80.0-100.0); MEAN CORPUSCULAR HEMOGLOBIN 27.8 PG (27.0-34.0); MEAN CORPUSCULAR HGB CONC 32.6 % (32.0-36.0); MONO % 2.3 % (0.0-8.0); NEUT % 92.5 % (16.0-70.0); PLATELET COUNT 198 TH/MM3 (150-450); RED BLOOD COUNT 3.94 MIL/MM3 (4.00-5.30); RED CELL DISTRIBUTION WIDTH 22.2 % (11.6-17.2); WHITE BLOOD COUNT 10.2 TH/MM3 (4.0-11.0)
[2016-12-30] MEDS: ONDANSETRON HCL 4 MG/2 ML VIAL IV PUSH PRN (11:53)
[2016-12-30] MEDS ORDERED: SODIUM PHOSPHATE INJ 30 MMOL in SODIUM CHLOR 0.9% 250 ML INJ 240 ML IV PRN (12:15)
[2016-12-30] MEDS ORDERED: POTASSIUM CHLOR 40 MEQ PREMIX 100 ML IV PRN ×2 (12:15)
[2016-12-30] MEDS ORDERED: POTASSIUM CHLOR 20 MEQ PREMIX 100 ML IV PRN (12:15)
[2016-12-30] MEDS ORDERED: MAGNESIUM SULFATE INJ 2 GM in SODIUM CHLORIDE 0.9% INJ 96 ML IV PRN (12:15)
[2016-12-30] MEDS ORDERED: POTASSIUM PHOSPHATE INJ 30 MMOL in SODIUM CHLOR 0.9% 250 ML INJ 250 ML IV PRN (12:15)
[2016-12-30] MEDS ORDERED: POTASSIUM PHOSPHATE MONOBASIC 500 MG TAB PO PRN (12:15)
[2016-12-30] MEDS ORDERED: MAGNESIUM OXIDE 400 MG TAB PO PRN (12:15)
[2016-12-30] MEDS ORDERED: RESP: ALBUTEROL 2.5 MG/IPRATROPIUM 0.5 MG NEB (PRN) INH (12:15)
[2016-12-30] MEDS ORDERED: POTASSIUM PHOSPHATE MONOBASIC 500 MG TAB PO/TUBE PRN (12:15)
[2016-12-30] MEDS ORDERED: MAGNESIUM SULFATE INJ 4 GM in SODIUM CHLORIDE 0.9% INJ 92 ML IV PRN (12:15)
[2016-12-30] MEDS: HYDROmorphone HCL PF 1 MG/ML VIAL IV PUSH PRN ×2 (12:16→18:28)
--- NOTE | 2016-12-30 12:27 | HHI.CCPN ---
Subjective Remarks/Hospital Course Hospital Course: 75-year-old female with a history of Stage III poorly differentiated non-small cell lung cancer diagnosed via CT-guided biopsy in June of 2016. She received concurrent chemotherapy and radiation treatments. She had a total of four cycles of chemotherapy. The patient was recommended two additional consolidation treatments but unfortunately due to her decline in performance status, she was not able to be given this treatment. She developed swallowing difficulty due to a postradiation esophageal stricture. She had dilatation without improvement of her symptoms. She continued to have dysphagia and a PEG tube was placed. She has had developed severe complications from the PEG tube insertion site with a large amount of leakage and a copious amount of purulent drainage from the PEG tube insertion site due to abdominal wall fistula. Her fistula tract is closed at the gastric end. The patient is currently on TPN. Her respiratory status was progressively getting worse over the past few days, and rapid response team was called due to severe hypoxemia at 15 weeks December 29 late night. The patient is transferred to ICU and critical care medicine is consulted for further management. Subjective: 12/30: still hypoxic requiring 60% high flow NC. complaining of chest pain this morning with nausea. chest pain is nonradiating, nonexertional. EKG done: NSR, no st-twave changes. otherwise ROS negative. Objective Vital Signs Date Time Temp Pulse Resp B/P (MAP) Pulse Ox O2 Delivery O2 Flow Rate FiO2 12/30/16 08:29 94 High Flow Nasal Cannula 20.00 55 12/30/16 04:00 99.5 84 26 100/51 (67) Intake and Output 12/30/16 12/30/16 12/30/16 07:59 15:59 23:59 Intake Total 684 ml Output Total 1500 ml Balance -816 ml Result Diagram: 12/30/16 1041 12/29/16 2221 Other Results Microbiology Date/Time Source Procedure Growth Status 12/30/16 03:00 Urine Catheterized Urine Legionella Antigen - Final PRESUMPTIVE NEGATIVE FOR LEGIONELLA P... Complete 12/30/16 03:00 Urine Catheterized Urine Streptococcus pneumoniae Antigen (M - Final PRESUMPTIVE NEGATIVE FOR STREPTOCOCCU... Complete Laboratory Tests Test 12/29/16 21:14 Blood Gas Puncture Site RT BRACHIAL Blood Gas Patient Temperature 98.6 Blood Gas HCO3 28 mmol/L (22-26) Blood Gas Base Excess 4.9 mmol/L (-2-2) Blood Gas Oxygen Saturation 97 % (90-100) Arterial Blood pH 7.51 (7.380-7.420) Arterial Blood Partial Pressure CO2 36 mmHg (38-42) Arterial Blood Partial Pressure O2 121 mmHg (61-120) Arterial Blood Oxygen Content 15.4 Vol % (12.0-20.0) Arterial Blood Carboxyhemoglobin 2.1 % (0-4) Arterial Blood Methemoglobin 0.7 % (0-2) Blood Gas Hemoglobin 11.2 G/DL (12.0-16.0) Oxygen Delivery Device NON REBREATHER Blood Gas Liter Flow 15 L/M Objective Remarks GENERAL: Elderly appearing woman sitting in bed. SKIN: Warm and dry. HEAD: Normocephalic. EYES: No scleral icterus. No injection or drainage. NECK: Supple, trachea midline. CARDIOVASCULAR: Regular rate and rhythm. sinus by EKG. RESPIRATORY: Breath sounds equal bilaterally. No accessory muscle use. high flow NC, 33lpm, 60% fio2. GASTROINTESTINAL: Abdomen soft, non-tender, nondistended. MUSCULOSKELETAL: No cyanosis, or edema. NEURO EXAM: RASS 0. CAM -. no gross focal deficits. Procedures 12/17/2016 EGD with clip placement A/P Assessment and Plan Assessment: 76yF with worsening acute hypoxic respiratory failure, abdominal wall fistula, esophageal stricture. Her bilateral effusions do not appear to be large enough to cause this degree of hypoxia, and they are too small and somewhat loculated to safely drain percutaneously at this time. She is significantly volume up from admission, and volume overload is a far more likely. She does not appear to clinically have signs of pneumonia, without productive cough. She has a history of COPD and I think steroids and nebs, treatment empirically for concomitant COPD exacerbation is warranted. Needs to remain in ICU while tenuous pulmonary status. Highly complex patient with multiple problems. Chest pain - unlikely to be ACS, atypical - EKG sinus rhythm without over st segment changes - f/u cardiac enzymes and BNP. Respiratory distress Acute hypoxemia Probable volume overload/pulmonary edema - CTA negative for PE. - continue abx until cultures result. - lasix 40mg iv q8h - diamox 500mg iv x 1. COPD exacerbation - steroids and nebs - aggressive pulmonary toilet. Abdominal wall fistula - Complication of PEG Tube placement - Continue TPN - Further management per GI Esophageal stricture - Postradiation - Continue nothing by mouth and TPN Non-small cell lung cancer - management by Oncology Hypothyroidism - Levothyroxine Hypertension - Lisinopril Anemia - Of chronic disease - Monitor H&H and transfuse for hemoglobin less than 7 DVT GI prophylaxis - Teds SCDs - Lovenox - Pantoprazole Carlton Warren MD Dec 30, 2016 12:27
[2016-12-30 14:20] LABS: CREATINE KINASE 133 U/L (26-192)
[2016-12-30] MEDS: FUROSEMIDE 40 MG/4 ML VIAL IV PUSH SCH ×2 (14:30→21:01)
[2016-12-30 14:32] LABS: CKMB 1.5 NG/ML (0.5-3.6)
--- NOTE | 2016-12-30 15:36 | HHI.GIFU ---
Subjective Remarks Patient [place] [facility] distress. She was started on diuretics/steroids and her respiratory status is much improved on high flow o2. She is tolerating a soft diet, although meal percentages are not being recorded consistently. The nurse reports that when she took off. The patient's abdominal dressing this morning she found her PEG tube cut in half with the cut portion taped to the dressing. She clamped the PEG tube. Objective Vitals I&O Vital Signs Date Time Temp Pulse Resp B/P (MAP) Pulse Ox O2 Delivery O2 Flow Rate FiO2 12/30/16 12:46 16 12/30/16 11:40 20 12/30/16 08:29 94 High Flow Nasal Cannula 20.00 55 12/30/16 08:00 98 Nasal Cannula 90 12/30/16 04:00 99.5 84 26 100/51 (67) 92 12/30/16 00:00 99.2 116 33 138/109 (119) 98 12/30/16 00:00 96 Nasal Cannula 90 12/29/16 23:25 97 High Flow Nasal Cannula 20.00 90 12/29/16 22:20 100 High Flow Nasal Cannula 20.00 100 12/29/16 22:00 99.3 129 35 163/73 (103) 100 12/29/16 22:00 100 Nasal Cannula 100 12/29/16 20:00 101.1 141 28 142/65 (90) 72 12/29/16 19:48 Nasal Cannula 3.00 12/29/16 15:47 97.0 109 20 138/72 (94) 92 I/O 12/29/16 12/29/16 12/29/16 12/30/16 12/30/16 12/30/16 06:59 14:59 22:59 06:59 14:59 22:59 Intake Total 2479 ml 360 ml 684 ml 100 ml Output Total 3 ml 1500 ml Balance 2476 ml 360 ml -816 ml 100 ml Intake Oral 360 ml 360 ml IV Total 684 ml 100 ml TPN/PPN 1666 ml Lipid 453 ml Output Urine Total 3 ml 1500 ml # Voids 13 # Bowel Movements 0 0 Laboratory Laboratory Tests Test 12/29/16 21:14 12/29/16 21:45 12/29/16 22:21 12/30/16 10:41 Blood Gas Puncture Site RT BRACHIAL Blood Gas Patient Temperature 98.6 Blood Gas HCO3 28 Blood Gas Base Excess 4.9 Blood Gas Oxygen Saturation 97 Arterial Blood pH 7.51 Arterial Blood Partial Pressure CO2 36 Arterial Blood Partial Pressure O2 121 Arterial Blood Oxygen Content 15.4 Arterial Blood Carboxyhemoglobin 2.1 Arterial Blood Methemoglobin 0.7 Blood Gas Hemoglobin 11.2 Oxygen Delivery Device NON REBREATHER Blood Gas Liter Flow 15 Nasal Screen MRSA (PCR) MRSA NOT DETECTED White Blood Count 14.8 10.2 Red Blood Count 4.01 3.94 Hemoglobin 10.6 11.0 Hematocrit 33.8 33.6 Mean Corpuscular Volume 84.2 85.2 Mean Corpuscular Hemoglobin 26.5 27.8 Mean Corpuscular Hemoglobin Concent 31.5 32.6 Red Cell Distribution Width 21.8 22.2 Platelet Count 244 198 Mean Platelet Volume 8.0 9.1 Neutrophils (%) (Auto) 92.2 92.5 Lymphocytes (%) (Auto) 2.4 5.0 Monocytes (%) (Auto) 5.0 2.3 Eosinophils (%) (Auto) 0.1 0.0 Basophils (%) (Auto) 0.3 0.2 Neutrophils # (Auto) 13.7 9.4 Lymphocytes # (Auto) 0.4 0.5 Monocytes # (Auto) 0.7 0.2 Eosinophils # (Auto) 0.0 0.0 Basophils # (Auto) 0.0 0.0 CBC Comment DIFF FINAL DIFF FINAL Differential Comment Blood Urea Nitrogen 9 Creatinine 0.49 Random Glucose 104 Total Protein 7.1 Albumin 2.2 Calcium Level 8.2 Alkaline Phosphatase 188 Aspartate Amino Transf (AST/SGOT) 22 Alanine Aminotransferase (ALT/SGPT) 18 Total Bilirubin 0.6 Sodium Level 134 Potassium Level 3.3 Chloride Level 95 Carbon Dioxide Level 31.3 Anion Gap 8 Estimat Glomerular Filtration Rate 122 B-Type Natriuretic Peptide 385 371 Test 12/30/16 13:46 Total Creatine Kinase 133 Creatine Kinase MB 1.5 Troponin I 0.03 Date/Time Source Procedure Growth Status 12/30/16 03:21 Blood Peripheral Aerobic Blood Culture Pending Received 12/30/16 03:21 Blood Peripheral Anaerobic Blood Culture Pending Received 12/11/16 17:57 Fluid Other Gram Stain - Final Complete 12/11/16 17:57 Fluid Other Body Fluid Culture - Final NO GROWTH IN 72 HRS.--AEROBICALLY OR ... Complete 12/30/16 03:00 Urine Catheterized Urine Legionella Antigen - Final PRESUMPTIVE NEGATIVE FOR LEGIONELLA P... Complete 12/30/16 03:00 Urine Catheterized Urine Streptococcus pneumoniae Antigen (M - Final PRESUMPTIVE NEGATIVE FOR STREPTOCOCCU... Complete 12/10/16 15:15 Wound Drainage Gram Stain - Final Complete 12/10/16 15:15 Wound Culture - Final Lactobacillus Species Complete Imaging Last Impressions Chest X-Ray 12/29/16 0000 Signed Impressions: Service Date/Time: Thursday, December 29, 2016 21:11 - CONCLUSION: 1. Increase in basilar airspace disease and small pleural effusions compared with December 21. Tio Espinoza MD CT Angiography 12/29/16 0000 Signed Impressions: Service Date/Time: December 01:02 - CONCLUSION: 1. Negative for pulmonary embolus. 2. Esophageal stent present with abnormal soft tissue in the mediastinum around the esophageal stent. 3. Stable 2.3 cm nodule upper left lung. 4. Development of bilateral pleural effusions, left greater than right with partial loculation on the left side and compressive atelectasis in both lungs. Tio Espinoza MD GI Procedure 12/24/16 1119 Signed Impressions: Service Date/Time: Saturday, December 24, 2016 11:24 - CONCLUSION: 1. Esophageal stent in excellent position. Clifford Machado MD Upper GI Series 12/23/16 0000 Signed Impressions: Service Date/Time: December 09:22 - CONCLUSION: 1. No evidence of fistula or obstruction. 2. Small diverticulum along the distal esophagus. Louie Conrad MD Abdomen/Pelvis CT 12/10/16 0000 Signed Impressions: Service Date/Time: Saturday, December 10, 2016 20:17 - CONCLUSION: 1. Focal thickening of the left rectus muscle with sinus tract extending from the lumen of the stomach into the rectus, presumably at site of prior percutaneous gastrostomy. 2. Moderate-sized left pleural effusion. No evidence of ascites. 3. 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 4. Sigmoid diverticulosis without radiographic evidence of diverticulitis. Armando Harrington MD Physical Exam HEENT: Normocephalic; atraumatic CHEST: Resp shallow/even, diminished. CARDIAC: RRR. ABDOMEN: Soft, nondistended, no hepatosplenomegaly; bowel sounds are present in all four quadrants. PEG tube clamped, drsg d/i the site is without swelling and the drsg is dry since this am. EXTREMITIES: Trace ble edema. SKIN: Normal; no rash; no jaundice. [employer] COORDINATOR: No focal deficits; alert and oriented times three. 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 S/P EGD with esophageal stent placement and PEG placement (12/24/16)-----> Radiation esophagitis, Esophageal stricture, Gastrocutaneous fistula, Gastric ulcers. PPI, TPN. She is tolerating a soft diet although her meal percentages are not being recorded consistently. We will ask for a calorie count and wean TPN if she is meeting her nutritional needs. 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 Pt came to office on 12/08 for peg tube site pain and drainage. The tube was noted to be dislodged and was completely removed. The incision was packed and she was given Augmentin suspension. She reports that since the tube was removed, it has been draining copious amounts of purulent She was seen in office today (12/10/16) with significant leakage from the peg tube site, with moderate erythema noted surrounding the site. She was sent to the hospital for IV antibiotics, TPN, and possible I&D. She denies fevers/chills. Abdomen/Pelvis CT (12/10/16)----> 1. Focal thickening of the left rectus muscle with sinus tract extending from the lumen of the stomach into the rectus, presumably at site of prior percutaneous gastrostomy. 2. Moderate-sized left pleural effusion. No evidence of ascites. 3. 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 4. Sigmoid diverticulosis without radiographic evidence of diverticulitis. Fistula site with drainage bag with large amount of dark drainage. NPO. TPN. Wound culture with lactobacillus species. Fluid with no growth x 48 hours. Site itself much improved- not red or indurated. S/P EGD with clip placement (12/17/16)----> Mid-esophageal radiation esophagitis with stricturing but I was able to pass the scope with ease, stomach there was a large opening and on the anterior wall of the stomach that connects to the skin and I cauterized the track with silver nitrate and I applied 4 clips on the inside at the opening of the fistula in hopes to reduce the amount of gastric juice flow and an NG tube was placed so that we can suction gastric contents. The duodenum was normal. The NGT was removed. Her gastric drainage is decreasing from the fistula. Upper GI Series (12/23/16 )----> 1. No evidence of fistula or obstruction. 2. Small diverticulum along the distal esophagus. S/P Rpt. EGD with stent placement/peg placement as above (12/24). The nurse reports that when she went to change that abdominal dressing this morning she found the PEG tube cut in half with the cut portion taped to the dressing. She clamp the PEG tube. The bumper appears to be still occluding the opening. Since we are not using the PEG tube for feedings this should be okay until she has her repeat EGD with esophageal stent and PEG tube removal in one month. Continue wound care. - Resp. Insuffienciency/Cough/Hypoxia. Improved. Diuretics/steroids/nebs per CCM - Leukocytosis secondary to above. WBC 10.2. - GERD. PPI - Anemia, with drop in Hgb. Status post 3 units of packed red blood cells. H& H stable at 11.0/33.6. 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 S/P chemotherapy and radiotherapy, completed on 09/01/16. PET scan scheduled as outpatient. - Hypokalemia, HTN, Hypothyroidism, COPD, Hyperlipidemia, Macular degeneration per attending. PLAN: - Soft diet as tolerated - Record meal percentages - Calorie count. - Will wean TPN if patient meeting nutritional requirements on Calorie count - PPI with BID dosing - Continue wound care- apply stoma powder to irritation and wiping often applying skin prep and letting dry before repeating the process a second time. Cover wound around the PEG tube with [employer] loosely packed in the wound bed. Cover with dry 4 x 4 drain sponge. Secure dressings with ABVD pad and mid fixed tape. Change dressing as needed - Supportive care - Rpt. EGD in 1 month to remove esophageal stent and PEG tube - Pt seen and examined by Dr. Paulson and myself and this note is written on his behalf Venecia Patel Dec 30, 2016 15:36
--- NOTE | 2016-12-30 15:40 | PD.ONC.PN ---
Subjective Subjective Remarks Temperature 101.1 overnight A Halicat was called when patient's O2 sats were found to be in the 50s and she was [place] [facility] she reports her breathing is okay on 55% high flow O2 nasal cannula Objective Data Date Time Temp Pulse Resp B/P (MAP) Pulse Ox O2 Delivery O2 Flow Rate FiO2 12/30/16 12:46 16 12/30/16 11:40 20 12/30/16 08:29 94 High Flow Nasal Cannula 20.00 55 12/30/16 08:00 98 Nasal Cannula 90 12/30/16 04:00 99.5 84 26 100/51 (67) 92 12/30/16 00:00 99.2 116 33 138/109 (119) 98 12/30/16 00:00 96 Nasal Cannula 90 12/29/16 23:25 97 High Flow Nasal Cannula 20.00 90 12/29/16 22:20 100 High Flow Nasal Cannula 20.00 100 12/29/16 22:00 99.3 129 35 163/73 (103) 100 12/29/16 22:00 100 Nasal Cannula 100 12/29/16 20:00 101.1 141 28 142/65 (90) 72 12/29/16 19:48 Nasal Cannula 3.00 12/29/16 15:47 97.0 109 20 138/72 (94) 92 12/30/16 12/30/16 12/30/16 07:00 15:00 23:00 Intake Total 684 ml 100 ml Output Total 1500 ml Balance -816 ml 100 ml Result Diagram: 12/30/16 1041 12/29/16 2221 Laboratory Results Laboratory Tests Test 12/29/16 21:14 12/29/16 21:45 12/29/16 22:21 12/30/16 10:41 Blood Gas Puncture Site RT BRACHIAL Blood Gas Patient Temperature 98.6 Blood Gas HCO3 28 mmol/L Blood Gas Base Excess 4.9 mmol/L Blood Gas Oxygen Saturation 97 % Arterial Blood pH 7.51 Arterial Blood Partial Pressure CO2 36 mmHg Arterial Blood Partial Pressure O2 121 mmHg Arterial Blood Oxygen Content 15.4 Vol % Arterial Blood Carboxyhemoglobin 2.1 % Arterial Blood Methemoglobin 0.7 % Blood Gas Hemoglobin 11.2 G/DL Oxygen Delivery Device NON REBREATHER Blood Gas Liter Flow 15 L/M Nasal Screen MRSA (PCR) MRSA NOT DETECTED White Blood Count 14.8 TH/MM3 10.2 TH/MM3 Red Blood Count 4.01 MIL/MM3 3.94 MIL/MM3 Hemoglobin 10.6 GM/DL 11.0 GM/DL Hematocrit 33.8 % 33.6 % Mean Corpuscular Volume 84.2 FL 85.2 FL Mean Corpuscular Hemoglobin 26.5 PG 27.8 PG Mean Corpuscular Hemoglobin Concent 31.5 % 32.6 % Red Cell Distribution Width 21.8 % 22.2 % Platelet Count 244 TH/MM3 198 TH/MM3 Mean Platelet Volume 8.0 FL 9.1 FL Neutrophils (%) (Auto) 92.2 % 92.5 % Lymphocytes (%) (Auto) 2.4 % 5.0 % Monocytes (%) (Auto) 5.0 % 2.3 % Eosinophils (%) (Auto) 0.1 % 0.0 % Basophils (%) (Auto) 0.3 % 0.2 % Neutrophils # (Auto) 13.7 TH/MM3 9.4 TH/MM3 Lymphocytes # (Auto) 0.4 TH/MM3 0.5 TH/MM3 Monocytes # (Auto) 0.7 TH/MM3 0.2 TH/MM3 Eosinophils # (Auto) 0.0 TH/MM3 0.0 TH/MM3 Basophils # (Auto) 0.0 TH/MM3 0.0 TH/MM3 CBC Comment DIFF FINAL DIFF FINAL Differential Comment Blood Urea Nitrogen 9 MG/DL Creatinine 0.49 MG/DL Random Glucose 104 MG/DL Total Protein 7.1 GM/DL Albumin 2.2 GM/DL Calcium Level 8.2 MG/DL Alkaline Phosphatase 188 U/L Aspartate Amino Transf (AST/SGOT) 22 U/L Alanine Aminotransferase (ALT/SGPT) 18 U/L Total Bilirubin 0.6 MG/DL Sodium Level 134 MEQ/L Potassium Level 3.3 MEQ/L Chloride Level 95 MEQ/L Carbon Dioxide Level 31.3 MEQ/L Anion Gap 8 MEQ/L Estimat Glomerular Filtration Rate 122 ML/MIN B-Type Natriuretic Peptide 385 PG/ML 371 PG/ML Test 12/30/16 13:46 Total Creatine Kinase 133 U/L Creatine Kinase MB 1.5 NG/ML Troponin I 0.03 NG/ML Culture Results Microbiology Date/Time Source Procedure Growth Status 12/30/16 03:21 Blood Peripheral Aerobic Blood Culture Pending Received 12/30/16 03:21 Blood Peripheral Anaerobic Blood Culture Pending Received 12/30/16 03:16 Blood Peripheral Aerobic Blood Culture Pending Received 12/30/16 03:16 Blood Peripheral Anaerobic Blood Culture Pending Received 12/30/16 03:00 Urine Catheterized Urine Legionella Antigen - Final PRESUMPTIVE NEGATIVE FOR LEGIONELLA P... Complete 12/30/16 03:00 Urine Catheterized Urine Streptococcus pneumoniae Antigen (M - Final PRESUMPTIVE NEGATIVE FOR STREPTOCOCCU... Complete 12/30/16 03:00 Urine Random Urine Urine Culture Pending Received Administered Medications Medications (Trade) Dose Ordered Sig/Alla Route PRN Reason Start Time Stop Time Status Last Admin Dose Admin Sodium Chloride (NS Flush) 2 ml BID IV FLUSH 12/10/16 21:00 12/30/16 10:41 Enoxaparin Sodium (Lovenox Inj) 40 mg Q24H SQ 12/10/16 22:45 Future hold 12/23/16 21:59 Amitriptyline HCl (Elavil) 25 mg HS PO 12/11/16 21:00 12/28/16 20:47 Levothyroxine Sodium (Synthroid) 75 mcg DAILY@07 PO 12/11/16 07:00 12/30/16 06:41 Lisinopril (Prinivil) 10 mg DAILY PO 12/11/16 09:00 12/30/16 10:39 Fat Emulsion Intravenous 250 ml @ 10 mls/hr Q24H IV-CENTRAL 12/11/16 20:00 12/29/16 19:49 Hydromorphone HCl (Dilaudid Pf Inj) 1 mg Q3H PRN IV PUSH PAIN SCALE 5 TO 10 12/12/16 14:45 12/30/16 12:16 Nystatin (Mycostatin Liq) 5 ml QID SWISH-SWAL 12/19/16 18:00 12/30/16 12:16 Miscellaneous Information 1 Q3D T-DERMAL 12/20/16 18:00 12/26/16 18:00 Guaifenesin (Robitussin Liq) 600 mg BID PO 12/21/16 09:45 12/28/16 08:22 Patient Own Medication PT OWN MED: TRANXENE-T (CLORAZEPA... TID PO 12/23/16 13:00 Future hold 12/30/16 13:01 Pantoprazole Sodium (Protonix) 40 mg Q12HR PO 12/24/16 12:45 12/30/16 10:40 Ondansetron HCl (Zofran Inj) 4 mg Q4HR PRN IV PUSH N/V 12/24/16 18:00 12/30/16 11:53 Multivitamins 10 ml/Folic Acid 1 mg/Amino Acids/ Electrolytes/ Dextrose 1,010.2 ml @ 20 mls/hr Q24H IV 12/29/16 20:00 12/29/16 19:49 Morphine Sulfate (Oramorph Sr) 15 mg BID PO 12/28/16 21:00 12/30/16 10:40 Oxycodone HCl (Roxicodone) 5 mg Q4H PRN PO PAIN SCALE 1 TO 4 12/28/16 14:30 12/29/16 12:42 Piperacillin Sod/ Tazobactam Sod 100 ml @ 200 mls/hr Q6H IV 12/30/16 03:00 12/30/16 14:31 Furosemide (Lasix Inj) 40 mg Q8H IV PUSH 12/30/16 14:00 12/31/16 06:01 12/30/16 14:30 Potassium Chloride 100 ml @ 50 mls/hr Q2H PRN IV For Potassium 3.3 - 3.5 mEq/L 12/30/16 12:15 12/30/16 14:36 Objective Remarks GENERAL: Elderly female upright in bed. SKIN: Warm and dry. HEAD: Normocephalic. EYES: No injection or drainage. NECK: Supple, trachea midline. CARDIOVASCULAR: Regular rate and rhythm RESPIRATORY: Clear anteriorly. Breathing unlabored at rest on high flow O2 GASTROINTESTINAL: Abdomen soft, non-distended. PEG tube clamped. EXTREMITIES: No cyanosis. No edema. NEUROLOGICAL: Normal speech. Moving all extremities. No obvious deficit. Assessment/Plan Problem List: (1) Dysphagia ICD Codes: R13.10 - Dysphagia, unspecified Status: Acute Plan: -- Weaning TPN -- Oral nutrition improving History --presents to [facility] with recurrent symptoms from her radiation esophagitis. --Due to significant dysphagia a PEG tube was placed. --had complications from the PEG tube insertion site. --++large amount of leakage and a copious amount of purulent drainage from the PEG tube insertion site. +concern for abdominal wall fistula. --EGD and stent placement and PEG placement on 12.24-->EGD showed Radiation esophagitis, Esophageal stricture, Gastrocutaneous fistula, Gastric ulcers --upper GI series, 12/23-->No evidence of fistula or obstruction. Small diverticulum along the distal esophagus. (2) Non-small cell lung cancer (NSCLC) ICD Codes: C34.90 - Malignant neoplasm of unspecified part of unspecified bronchus or lung Status: Acute Plan: --further treatment in clinic once improvement in current conditions History: diagnosed via CT-guided biopsy in June of 2016. PET/CT scan confirmed this disease to be Stage III-B. --received concurrent chemotherapy and radiation treatments. --had a total of four cycles of chemotherapy. --Follow-up imaging showed a residual lung lesion in the left upper lobe which was 1.8 x 2.4 x 3.8 cm. The patient was recommended two additional consolidation treatments but unfortunately due to her decline in performance status, she was not able to be given this treatment. (3) Normocytic anemia ICD Codes: D64.9 - Anemia, unspecified Status: Acute Plan: monitor and transfuse as needed, given iron IV History: --patient became severely anemic with a hemoglobin in the 6 range and she was given 2 units of packed red blood cells. --no evidence of hemolysis. --likely losing blood through the GI tract. --also a component of malnutrition. --currently being seen by GI and further workup is ongoing. --ordered daily IV iron x 3 treatments. (4) Pain ICD Codes: R52 - Pain, unspecified Status: Acute Plan: --on IV Dilaudid p.r.n. 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 currently getting wound care. --has also been evaluated by Surgery and there are no surgical plans at this time. Assessment 76y/o female with a history of [id number] lung cancer who was admitted to the hospital for complications from radiation esophagitis. h/o History of onm-szuhe-kaow lung cancer, Stage III-B, status post concurrent chemotherapy and radiation treatment. Esophageal strictures status post dilatation x 4. Hypertension. Port placement. Lung biopsy. Hysterectomy. Tonsillectomy. PEG tube placement. Plan 1. CT angiography was negative for pulmonary embolism. Continue to wean O2 as tolerated. 2. If doing well tomorrow and continuing to take in good nutrition by mouth, we will stop TPN. 3. Blood cultures pending; continue Zosyn and Vanco for now 4. Supportive care Discussed with RN Attending Statement The exam, history, and the medical decision-making described in the above note were completed with the assistance of the mid-level provider. I reviewed and agree with the findings presented. I attest that I had a [id number] encounter with the patient on the same day, and personally performed and documented my assessment and findings in the medical record Isabel Navarro Dec 30, 2016 15:40 Montrell Montiel MD Dec 30, 2016 23:15
[2016-12-30] MEDS: RESP: ALBUTEROL 2.5 MG/IPRATROPIUM 0.5 MG NEB (SCH) INH ×3 (15:51→23:27)
--- NOTE | 2016-12-30 16:23 | PD.CONS ---
Consult Service Palliative Care Consult Requested By Dr. Chew Primary Care Physician Radha Berumen MD Reason for Consultation a. To assist with evaluation and management of symptoms including: Pain, shortness of breath and debility. b. To assist medical decision maker(s) with: better understanding of current medical conditions; weighing benefits/burdens of medical treatment options; making medical treatment decisions. . HPI History of Present Illness Ms. Valdovinos is a 68-year-old female with a medical history significant for stage III lung cancer, hypertension, COPD and radiation esophagitis. Patient was referred to emergency room by GI, Dr. Garcia for IV antibiotic, hydration and observation/management. Patient with a significant of history of stage III poorly differentiated non-small cell lung carcinoma diagnosed via CT-guided biopsy on June 2016. Pet/CT confirmed progression of disease to a stage III -B. patient completed concurrent chemotherapy and radiation treatments at the end of August 2016. Follow-up imaging revealed residual lung lesion in the left upper lobe measuring 1.8 x 2.4 x 3.8 centimeters. At that time, patient was recommended to additional consolidation treatment was unable to received secondary to declining overall performance status. Clinical course complicated by dysphagia secondary to radiation esophagitis, esophageal strictures status post dilatation and weight loss secondary to limited oral intake. Patient underwent EGD with PEG tube placement on 11/29/16. She was subsequently evaluated by dietitian and was recommended bolus feedings. Clinical course further complicated by infection/cellulitis of the PEG tube site prompting the removal of PEG tube. Patient was given Augmentin, however, continued reporting large amounts of purulent drainage at the site. Patient followed up with GI on 12/10/16 but she was found with significant leakage from the PEG tube site and subsequently sent to the ED for IV antibiotic and further management. Abdomen/ pelvis CT 12/10/16 revealing focal thickening of the left rectus muscle with sinus tract extending from the lumen of the stomach into the practice. Moderate sized left pleural effusion. Patient was admitted for additional treatment. GI consulted on 12/10/16. Surgery, Dr. Nice consulted on 12/10/2016 for evaluation of PEG tube dislodgement. Patient with intracutaneous and gastric atmospheric fistula. Ostomy appliance recommended at that time. Patient was started on TPN in order to allow fistula healing. ID, Dr. Guy consulted on 12/11/16 for evaluation of PEG tube site cellulitis. Patient was continued on IV antibiotics. Patient underwent EGD with clips x 4 placement on 12/17/16. Patient with severe anemia, Hgb 6.7 on 12/23/16, patient received 2 packs of red blood cells. Hem/Oncology, Dr. Montiel consulted on 12/23/16 for evaluation. Upper serious GI 12/23/16 with no evidence of fistula or obstruction. On 12/24/16, patient underwent EGD with esophageal stent placement and PEG placement for management of gastrocutaneous fistula and esophageal stricture with radiation esophagitis. Clinical course complicated on 12/29/16 secondary to worsening respiratory status, respiratory distress. CTA negative for PE. Chest x-ray revealing small peripheral effusions. Patient was transferred to medical ICU secondary to increased oxygen requirement. Patient remained hypoxic requiring 60% high flow nasal cannula. Palliative care has been consulted for further clarifications of goals of care given patient's progressive decline and recent complications. Patient seen in medical ICU, currently on 55%/10L. patient is alert and oriented x self, place and situation. Verbal and able to communicate needs. Patient endorsing dull epigastric pain that is intermittent. Exacerbated by nothing and alleviated at times with pain medication. Endorsing increased work of breathing. Denies nausea, vomiting or abdominal discomfort this time. Reports 2 bowel movements today. Reports that she has been able to tolerate diet today. Goal is to meet her caloric needs by oral nutrition while weaning TPN. Calorie count has been ordered today by GI. Discussed events leading to this hospitalization, clinical course and current medical management. Patient tells me that her goals of care at this time is to get her clinically stable to be discharge home. She plans to follow-up with oncology with outpatient PET scanning order to evaluate progression of disease. Patient tells me that PET scan results will determine further goals of treatment. Patient with a very good understanding of her disease progression and retains the ability to weight recent benefits of treatment options. Discussed risk, benefits and limitations of CPR, intubation and mechanical ventilation. Patient not very receptive to CODE STATUS conversation, however, verbalized NOT wishing to remain on life support for an extended period of time. Discussed with patient that by default , CODE STATUS is currently full code. Patient verbalized wishing to discussed further with family and to "think about it". Telephone conversation with patient's daughter Juanita. Medical update provided. Daughter with a good understanding of patient's disease progression and current complications. Daughter very supportive of patient's wishes. Daughter was encouraged to continue goals of care conversation with patient. Patient verbalized wishing to name her daughter as healthcare surrogate decision -maker but declined completing document. Patient and daughter receptive to palliative care follow-ups. Case discussed with Dr. Warren and bedside RN Adria. . Function/Cognitive Trajectory Patient residing with daughter prior to this hospitalization. Independent with ADLs. Reported progressive decline in performance status and significant weight loss. No cognitive deficits reported. . Review of Systems Constitutional: COMPLAINS OF: Fatigue, Weight loss, Pain, DENIES: Fever Eyes: COMPLAINS OF: Vision loss Ears, nose, mouth, throat: DENIES: Hearing loss, Nasal discharge, Running Nose , Epistaxis Respiratory: COMPLAINS OF: Shortness of breath, DENIES: Cough, Sputum production Cardiovascular: COMPLAINS OF: Chest pain, Dyspnea on Exertion, DENIES: Palpitations, Syncope, Lower Extremity Edema Gastrointestinal: DENIES: Constipation, Nausea, Vomiting Genitourinary: DENIES: Urinary frequency Musculoskeletal: DENIES: Muscle aches, Neck pain Integumentary: DENIES: Abnormal pigmentation Hematologic/Lymphatics: COMPLAINS OF: Bruising Immunologic/Allergic: DENIES: Eczema Neurologic: DENIES: Abnormal gait, Tremor, Poor Balance Psychiatric: COMPLAINS OF: Anxiety, DENIES: Confusion, Hallucinations Past Family Social History Coded Allergies: Sulfa (Sulfonamide Antibiotics) (Unverified Allergy, Severe, SWELLING, ) Past Medical History Non-small cell carcinoma of the lung, s/p chemo/rdx Esophageal strictures Radiation esophagitis HTN Hypothyroidism COPD Cellulitis PEG tube site GERD Hyperlipidemia Macular degeneration . Past Surgical History Hysterectomy Ex Lap - found benign lymph node Biopsy lymph node Pleural biopsy Colonoscopy EGD with dilatation EGD with PEG Tonsillectomy Tubal ligation . Reported Medications Amoxicillin Liq (Amoxicillin) 125 Mg/5 Ml Susp Unknown Dose PO TID 75 mg (3 mL). Take for 10 days. Hydrocodone-Acetaminophen Liq 7.5-325 Mg/15 Ml Soln 10 Ml PO Q6H PRN Levothyroxine (Levothyroxine Sodium) 75 Mcg Tab 75 Mcg PO DAILY Amitriptyline (Amitriptyline HCl) 25 Mg Tab 25 Mg PO HS Lisinopril 10 Mg Tab 10 Mg PO DAILY [Estrogen Patch] 1 Patch TOP WEEKLY . Current Medications Medications (Trade) Dose Ordered Sig/Alla Route Start Time Stop Time Status Last Admin (NS Flush) 2 ml BID IV FLUSH 12/10/16 21:00 12/30/16 10:41 (Lovenox Inj) 40 mg Q24H SQ 12/10/16 22:45 Future hold 12/23/16 21:59 (Elavil) 25 mg HS PO 12/11/16 21:00 12/28/16 20:47 (Synthroid) 75 mcg DAILY@07 PO 12/11/16 07:00 12/30/16 06:41 (Prinivil) 10 mg DAILY PO 12/11/16 09:00 12/30/16 10:39 Fat Emulsion Intravenous 250 ml @ 10 mls/hr Q24H IV-CENTRAL 12/11/16 20:00 12/29/16 19:49 (Dilaudid Pf Inj) 1 mg Q3H PRN IV PUSH 12/12/16 14:45 12/30/16 12:16 (Mycostatin Liq) 5 ml QID SWISH-SWAL 12/19/16 18:00 12/30/16 12:16 Miscellaneous Information 1 Q3D T-DERMAL 12/20/16 18:00 12/26/16 18:00 (Robitussin Liq) 600 mg BID PO 12/21/16 09:45 12/28/16 08:22 Patient Own Medication PT OWN MED: TRANXENE-T (CLORAZEPA... TID PO 12/23/16 13:00 Future hold 12/30/16 13:01 (Protonix) 40 mg Q12HR PO 12/24/16 12:45 12/30/16 10:40 (Zofran Inj) 4 mg Q4HR PRN IV PUSH 12/24/16 18:00 12/30/16 11:53 Multivitamins 10 ml/Folic Acid 1 mg/Amino Acids/ Electrolytes/ Dextrose 1,010.2 ml @ 20 mls/hr Q24H IV 12/29/16 20:00 12/29/16 19:49 (Oramorph Sr) 15 mg BID PO 12/28/16 21:00 12/30/16 10:40 (Roxicodone) 5 mg Q4H PRN PO 12/28/16 14:30 12/29/16 12:42 Piperacillin Sod/ Tazobactam Sod 100 ml @ 200 mls/hr Q6H IV 12/30/16 03:00 12/30/16 14:31 Pharmacy Profile Note 0 ml @ 0 mls/hr UNSCH OTHER 12/30/16 02:30 Vancomycin HCl 1250 mg/Sodium Chloride 262.5 ml @ 250 mls/hr Q12H IV 12/30/16 16:00 Miscellaneous Information SPECIFIC LAB TO BE DRAWN:VANCOMYCIN TROUGH DATE TO... ONCE ONCE .XX 01/01/17 03:45 01/01/17 03:46 (Lasix Inj) 40 mg Q8H IV PUSH 12/30/16 14:00 12/31/16 06:01 12/30/16 14:30 (Mag-Ox) 800 mg UNSCH PRN PO 12/30/16 12:15 Magnesium Sulfate 4 gm/Sodium Chloride 100 ml @ 50 mls/hr UNSCH PRN IV 12/30/16 12:15 Magnesium Sulfate 2 gm/Sodium Chloride 100 ml @ 50 mls/hr UNSCH PRN IV 12/30/16 12:15 Potassium Chloride 100 ml @ 50 mls/hr Q2H PRN IV 12/30/16 12:15 Potassium Chloride 100 ml @ 50 mls/hr Q2H PRN IV 12/30/16 12:15 12/30/16 14:36 Potassium Chloride 100 ml @ 50 mls/hr Q2H PRN IV 12/30/16 12:15 Potassium Chloride 100 ml @ 25 mls/hr UNSCH PRN IV 12/30/16 12:15 (K-Phos) 2,000 mg Q4H PRN PO 12/30/16 12:15 (K-Phos) 2,000 mg UNSCH PRN PO/TUBE 12/30/16 12:15 Potassium Phosphate 30 mmol/ Sodium Chloride 260 ml @ 42 mls/hr UNSCH PRN IV 12/30/16 12:15 Sodium Phosphate 30 mmol/Sodium Chloride 250 ml @ 42 mls/hr UNSCH PRN IV 12/30/16 12:15 (SoluMEDROL INJ) 60 mg Q12HR IV PUSH 12/30/16 21:00 (Duoneb Neb) 1 ampule Q2HR NEB PRN INH 12/30/16 12:15 (Duoneb Neb) 1 ampule Q4HR NEB INH 12/30/16 16:00 Family History Mother pancreatic cancer Uncle had colon cancer. Father with colorectal cancer. . Substance Use Tobacco: Former smoker. History of tobacco use of greater than 30 pack year. Alcohol: Socially. Prescription med abuse: None reported. Illicits: None reported. . Psychosocial History Patient originally from [place]. Moved to [place] in 1955. Single, has 2 adult children Williams and Juanita. 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 . Spiritual/Cultural Factors No gnosticist affiliations. . Living Will: Never completed Health Care Surrogate: Never completed Durable Power of Formula Checker: Never completed Health Care Surrogate(s): No advance directives completed. Patient is single. as per [place] statute, healthcare proxy decision making falls to patient's 2 children Juanita and Williams. . Documented care wishes: No living will completed. . Today's verbally stated goals: Full code. Patient electing to continue with current aggressive management with the goal to discharge home to continue with oncology disease specific therapy. . Family/friends goals: Patient's daughter Juanita fully supportive of patient's wishes. . Ethical and Legal Issues No ethical or legal issues have been identified. . Physical Exam Vital Signs Date Time Temp Pulse Resp B/P (MAP) Pulse Ox O2 Delivery O2 Flow Rate FiO2 12/30/16 12:46 16 12/30/16 11:40 20 12/30/16 08:29 94 High Flow Nasal Cannula 20.00 55 12/30/16 08:00 98 Nasal Cannula 90 12/30/16 04:00 99.5 84 26 100/51 (67) 92 12/30/16 00:00 99.2 116 33 138/109 (119) 98 12/30/16 00:00 96 Nasal Cannula 90 12/29/16 23:25 97 High Flow Nasal Cannula 20.00 90 12/29/16 22:20 100 High Flow Nasal Cannula 20.00 100 12/29/16 22:00 99.3 129 35 163/73 (103) 100 12/29/16 22:00 100 Nasal Cannula 100 12/29/16 20:00 101.1 141 28 142/65 (90) 72 12/29/16 19:48 Nasal Cannula 3.00 8/23/17 15:47 97.0 109 20 138/72 (94) 92 12/30/16 12/31/16 18:59 06:59 Intake Total 100 ml Balance 100 ml IV Total 100 ml Exam CONSTITUTIONAL/GENERAL: This is an ill appearing elderly female resting in bed in moderate distress secondary to epigastric pain. TUBES/LINES/DRAINS: Nasal cannula, MediPort, SCDs, Nicole catheter, PEG tube to left upper quadrant. SKIN: No jaundice, rashes, or lesions. Ecchymoses on upper extremities. Skin temperature appropriate. Not diaphoretic. HEAD: Atraumatic. Normocephalic. EYES: Pupils equal and round and reactive. Extraocular motions intact. No scleral icterus. No injection or drainage. Wearing glasses. Poor vision. ENT: Hearing grossly normal. Nose without bleeding or purulent drainage. Moist oral mucosa. NECK: Trachea midline. Supple, nontender. CARDIOVASCULAR: Regular rate and rhythm without murmurs. No JVD. Peripheral pulses symmetric. RESPIRATORY/CHEST: Symmetric, increased work of breathing. Clear to auscultation. GASTROINTESTINAL: Abdomen soft, round, tender to palpation. Bowel sounds present. PEG tube to LUQ GENITOURINARY: Without palpable bladder distension. Nicole catheter in place. MUSCULOSKELETAL: Extremities without clubbing, cyanosis, or edema. No joint tenderness or effusion noted. No calf tenderness. No mottling or clubbing. LYMPHATICS: No palpable cervical or supraclavicular adenopathy. NEUROLOGICAL: Awake and alert. Motor and sensory grossly within normal limits. Follows commands. Cognitively sharp. Moves all extremities. PSYCHIATRIC: Anxious at time secondary to shortness of breath/pain. . Diagnostic Tests Laboratory Laboratory Tests Test 12/29/16 06:32 12/29/16 21:14 12/29/16 21:45 12/29/16 22:21 White Blood Count 8.6 TH/MM3 (4.0-11.0) 14.8 TH/MM3 (4.0-11.0) Red Blood Count 3.61 MIL/MM3 (4.00-5.30) 4.01 MIL/MM3 (4.00-5.30) Hemoglobin 9.9 GM/DL (11.6-15.3) 10.6 GM/DL (11.6-15.3) Hematocrit 31.2 % (35.0-46.0) 33.8 % (35.0-46.0) Mean Corpuscular Volume 86.4 FL (80.0-100.0) 84.2 FL (80.0-100.0) Mean Corpuscular Hemoglobin 27.5 PG (27.0-34.0) 26.5 PG (27.0-34.0) Mean Corpuscular Hemoglobin Concent 31.8 % (32.0-36.0) 31.5 % (32.0-36.0) Red Cell Distribution Width 22.8 % (11.6-17.2) 21.8 % (11.6-17.2) Platelet Count 211 TH/MM3 (150-450) 244 TH/MM3 (150-450) Mean Platelet Volume 9.2 FL (7.0-11.0) 8.0 FL (7.0-11.0) Neutrophils (%) (Auto) 81.9 % (16.0-70.0) 92.2 % (16.0-70.0) Lymphocytes (%) (Auto) 6.8 % (9.0-44.0) 2.4 % (9.0-44.0) Monocytes (%) (Auto) 7.4 % (0.0-8.0) 5.0 % (0.0-8.0) Eosinophils (%) (Auto) 3.5 % (0.0-4.0) 0.1 % (0.0-4.0) Basophils (%) (Auto) 0.4 % (0.0-2.0) 0.3 % (0.0-2.0) Neutrophils # (Auto) 7.0 TH/MM3 (1.8-7.7) 13.7 TH/MM3 (1.8-7.7) Lymphocytes # (Auto) 0.6 TH/MM3 (1.0-4.8) 0.4 TH/MM3 (1.0-4.8) Monocytes # (Auto) 0.6 TH/MM3 (0-0.9) 0.7 TH/MM3 (0-0.9) Eosinophils # (Auto) 0.3 TH/MM3 (0-0.4) 0.0 TH/MM3 (0-0.4) Basophils # (Auto) 0.0 TH/MM3 (0-0.2) 0.0 TH/MM3 (0-0.2) CBC Comment DIFF FINAL DIFF FINAL Differential Comment Blood Urea Nitrogen 13 MG/DL (7-18) 9 MG/DL (7-18) Creatinine 0.43 MG/DL (0.50-1.00) 0.49 MG/DL (0.50-1.00) Random Glucose 98 MG/DL (74-106) 104 MG/DL (74-106) Calcium Level 8.0 MG/DL (8.5-10.1) 8.2 MG/DL (8.5-10.1) Sodium Level 138 MEQ/L (136-145) 134 MEQ/L (136-145) Potassium Level 3.5 MEQ/L (3.5-5.1) 3.3 MEQ/L (3.5-5.1) Chloride Level 102 MEQ/L (98-107) 95 MEQ/L (98-107) Carbon Dioxide Level 30.0 MEQ/L (21.0-32.0) 31.3 MEQ/L (21.0-32.0) Anion Gap 6 MEQ/L (5-15) 8 MEQ/L (5-15) Estimat Glomerular Filtration Rate 142 ML/MIN (>89) 122 ML/MIN (>89) Blood Gas Puncture Site RT BRACHIAL Blood Gas Patient Temperature 98.6 Blood Gas HCO3 28 mmol/L (22-26) Blood Gas Base Excess 4.9 mmol/L (-2-2) Blood Gas Oxygen Saturation 97 % (90-100) Arterial Blood pH 7.51 (7.380-7.420) Arterial Blood Partial Pressure CO2 36 mmHg (38-42) Arterial Blood Partial Pressure O2 121 mmHg (61-120) Arterial Blood Oxygen Content 15.4 Vol % (12.0-20.0) Arterial Blood Carboxyhemoglobin 2.1 % (0-4) Arterial Blood Methemoglobin 0.7 % (0-2) Blood Gas Hemoglobin 11.2 G/DL (12.0-16.0) Oxygen Delivery Device NON REBREATHER Blood Gas Liter Flow 15 L/M Nasal Screen MRSA (PCR) MRSA NOT DETECTED (NOT Total Protein 7.1 GM/DL (6.4-8.2) Albumin 2.2 GM/DL (3.4-5.0) Alkaline Phosphatase 188 U/L (45-117) Aspartate Amino Transf (AST/SGOT) 22 U/L (15-37) Alanine Aminotransferase (ALT/SGPT) 18 U/L (10-53) Total Bilirubin 0.6 MG/DL (0.2-1.0) B-Type Natriuretic Peptide 385 PG/ML (0-100) Test 12/30/16 10:41 12/30/16 13:46 White Blood Count 10.2 TH/MM3 (4.0-11.0) Red Blood Count 3.94 MIL/MM3 (4.00-5.30) Hemoglobin 11.0 GM/DL (11.6-15.3) Hematocrit 33.6 % (35.0-46.0) Mean Corpuscular Volume 85.2 FL (80.0-100.0) Mean Corpuscular Hemoglobin 27.8 PG (27.0-34.0) Mean Corpuscular Hemoglobin Concent 32.6 % (32.0-36.0) Red Cell Distribution Width 22.2 % (11.6-17.2) Platelet Count 198 TH/MM3 (150-450) Mean Platelet Volume 9.1 FL (7.0-11.0) Neutrophils (%) (Auto) 92.5 % (16.0-70.0) Lymphocytes (%) (Auto) 5.0 % (9.0-44.0) Monocytes (%) (Auto) 2.3 % (0.0-8.0) Eosinophils (%) (Auto) 0.0 % (0.0-4.0) Basophils (%) (Auto) 0.2 % (0.0-2.0) Neutrophils # (Auto) 9.4 TH/MM3 (1.8-7.7) Lymphocytes # (Auto) 0.5 TH/MM3 (1.0-4.8) Monocytes # (Auto) 0.2 TH/MM3 (0-0.9) Eosinophils # (Auto) 0.0 TH/MM3 (0-0.4) Basophils # (Auto) 0.0 TH/MM3 (0-0.2) CBC Comment DIFF FINAL Differential Comment Total Creatine Kinase 133 U/L (26-192) Creatine Kinase MB 1.5 NG/ML (0.5-3.6) Troponin I 0.03 NG/ML (0.02-0.05) Result Diagram: 12/30/16 1041 12/29/16 2221 Microbiology Microbiology Date/Time Source Procedure Growth Status 12/30/16 03:21 Blood Peripheral Aerobic Blood Culture Pending Received 12/30/16 03:21 Blood Peripheral Anaerobic Blood Culture Pending Received 12/30/16 03:16 Blood Peripheral Aerobic Blood Culture Pending Received 12/30/16 03:16 Blood Peripheral Anaerobic Blood Culture Pending Received 12/30/16 03:00 Urine Catheterized Urine Legionella Antigen - Final PRESUMPTIVE NEGATIVE FOR LEGIONELLA P... Complete 12/30/16 03:00 Urine Catheterized Urine Streptococcus pneumoniae Antigen (M - Final PRESUMPTIVE NEGATIVE FOR STREPTOCOCCU... Complete 12/30/16 03:00 Urine Random Urine Urine Culture Pending Received Imaging Last Impressions Chest X-Ray 12/29/16 0000 Signed Impressions: Service Date/Time: Thursday, December 29, 2016 21:11 - CONCLUSION: 1. Increase in basilar airspace disease and small pleural effusions compared with December 21. Tio Espinoza MD CT Angiography 12/29/16 0000 Signed Impressions: Service Date/Time: December 01:02 - CONCLUSION: 1. Negative for pulmonary embolus. 2. Esophageal stent present with abnormal soft tissue in the mediastinum around the esophageal stent. 3. Stable 2.3 cm nodule upper left lung. 4. Development of bilateral pleural effusions, left greater than right with partial loculation on the left side and compressive atelectasis in both lungs. Tio Espinoza MD GI Procedure 12/24/16 1119 Signed Impressions: Service Date/Time: Saturday, December 24, 2016 11:24 - CONCLUSION: 1. Esophageal stent in excellent position. Clifford Machado MD [facility] 12/23/16 0000 Signed Impressions: Service Date/Time: December 09:22 - CONCLUSION: 1. No evidence of fistula or obstruction. 2. Small diverticulum along the distal esophagus. Louie Conrad MD Abdomen/Pelvis CT 12/10/16 0000 Signed Impressions: Service Date/Time: Saturday, December 10, 2016 20:17 - CONCLUSION: 1. Focal thickening of the left rectus muscle with sinus tract extending from the lumen of the stomach into the rectus, presumably at site of prior percutaneous gastrostomy. 2. Moderate-sized left pleural effusion. No evidence of ascites. 3. 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 4. Sigmoid diverticulosis without radiographic evidence of diverticulitis. Armando Harrington MD Procedures * 12/24/16 -EGD with esophageal stent placement and PEG placement * 12/17/16 - EGD with clip placement x 4 . Patient/Family Conference Present at Family Conference: Patient, daughter Juanita via telephone. . Family Conference Time (mins): 48 Family Conference Location: Bedside, Telephone Issues Discussed: * Palliative care role, purpose, approach * Additional medical, psychosocial, and spiritual history * Patients general health, functional status, and cognitive changes in the months leading up to the current hospitalization * Patient/family understanding of the current medical problems -stage III lung cancer, COPD exacerbation, acute respiratory distress, esophageal strictures, pleural effusions. * Patient/family understanding of prognosis -guarded at this time. * Patients goals of care as best understood from advance directives and/or conversations and/or values * Current medical treatment options and benefits/burdens of those options * Questions answered to the best of my ability * Palliative care contact information provided * Risks, benefits and limitations of CPR given her clinical condition and multiple comorbidities * Advance directives and living will * Completion of 5 wishes . Assessment and Plan Disease Oriented Problem List: (1) Acute respiratory failure with hypoxia (2) COPD exacerbation (3) Pleural effusion on left (4) Non-small cell lung cancer (NSCLC) (5) Radiation-induced esophageal stricture Symptom Scale: (1) Pain 0-10 Scale: Unable to quantify Comment: To epigastric area (2) Shortness of breath 0-10 Scale: Unable to quantify Comment: Currently on high flow O2 Pertinent Non-Medical Issues Psychosocial: Patient originally from [place]. Moved to [place] in 6. Single, has 2 adult children Williams and Juanita. 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 Spiritual: No gnosticist affiliation. Legal: No advance directives completed. Ethical issues impacting care: No advance directives completed. . Important Contacts daughter Juanita Sullivan Son Williams Valdovinos . Prognosis Ms. Valdovinos is a 68-year-old female with a medical history significant for stage III lung cancer, hypertension, COPD and radiation esophagitis. Clinical course complicated by PEG tube site infection, radiation esophagitis and esophageal strictures requiring stents, weight loss and physical deconditioning. Clinical course further complicated by acute hypoxemic respiratory distress with increased oxygen requirements. Patient is a high risk for further complications , continue decline and . Pending outpatient PET scan to evaluate progression of metastatic disease/reevaluate prognosis. . Code Status: Full Code Plan * CODE STATUS: Full code by default. Risks, benefits and limitations of CPR, intubation and mechanical ventilation discussed with patient. Patient not receptive to code status conversation, however, verbalized NOT wishing to remain on life support for an extended period of time. Discussed with patient that by default, code status is currently full code. Patient verbalized wishing to discussed further with family and to "think about it" overnight. * HEALTHCARE DECISION-MAKING: Patient participating in medical decision-making. She demonstrates a good understanding of her clinical condition and disease process and retains the ability to weight risks, burdens and benefits of treatment options. No advance directives completed. Patient declined completion of designation of healthcare surrogate. Patient is single. As per [place] statute, healthcare proxy decision-making falls to patient's 2 children Juanita and Williams. * GOALS OF CARE: Patient's goal of therapy is to allow time for clinical improvement. continue with current aggressive management with the goal of D/C home. She plans to follow-up with oncology for outpatient PET/CT scan to evaluate progression of disease. Patient tells me that PET scan results will determine further goals of treatment. Discussed with patient's daughter Juanita the future role of hospice should patient's condition worsen, additional complications, progression of metastatic disease with inability to continue systemic therapy or increased symptom burden. Patient and daughter receptive to palliative care follow-ups. * SYMPTOMS: = Pain, reported as dull epigastric pain that is intermittent. Exacerbated by nothing and alleviated at times with pain medication. Patient believes that is gastric related. Patient currently on morphine 15 mg twice a day, oxycodone 5 mg Q4hr PRN and hydromorphone 1 mg Q3hr for breakthrough pain. Palliative care recommends trial of simethicone 80 mg, 1 to 2 tabs chewable every 6 hours as needed. = Shortness of breath, COPD exacerbation, pleural effusions. Currently on high flow. Critical care managing. * Case has been discussed with Dr. Warren and bedside RN. * Palliative care contact information has been provided to patient and daughter. * Palliative care will continue to follow-up for further clarifications of goals of care as patient's clinical course continues to evolve. . Time Spent Total Floor Time (mins): 76 (Total time to include review and summarization of available medical records to include prior hospitalizations, oncology and radiation oncology notes, physical exam, goals of care conversation with patient , telephone conversation with patient's daughter and case discussion with Dr. Warren and bedside RN.) >50% Counseling/Coord of Care: Yes Thank you for the opportunity to participate in the care of Ms. Valdovinos. Attestation To help prompt me to consider important information that might be impacting today's encounter and assessment, information from prior notes written by myself or my colleagues may have been "brought forward" into today's note. My signature on this note, however, is an attestation that I personally performed the exam, history, and/or decision-making noted today, and, unless otherwise indicated, the interactions with patient, family, and staff as well as the review of records all occurred today. I also attest that the listed assessment and stated plan reflect my best clinical judgment today based on the combination of historical information, prior notes, and today's exam/ interactions. When time spent is documented, it refers only to time spent today by the signer, or if indicated, combined time spent today by collaborating physician/nurse practitioner. Katja Maloney Dec 30, 2016 16:02
[2016-12-30] MEDS: VANCOMYCIN INJ 1,250 MG in SODIUM CHLOR 0.9% 250 ML INJ 250 ML IV SCH (16:31)
--- NOTE | 2016-12-30 16:50 | ECHRPT ---
Indication: SOB CONCLUSIONS Normal left ventricular size. Wall thickness is measured at the upper limits of normal. The left ventricular systolic function is hyperdynamic with an estimated ejection fraction in the ra nge of 65- 70%. Mitral annular calcification is present. Aortic valve sclerosis is present. Trace aortic valve regurgitation. The pulmonary valve is not well visualized. BP: 100 / 51 HR: 84 Rhythm: Sinus MEASUREMENTS (Male / Female) Normal Values Technical Quality:Technically difficult study 2D ECHO LV Diastolic Diameter PLAX 4.0 cm 4.2 - 5.9 / 3.9 - 5.3 cm LV Systolic Diameter PLAX 2.7 cm IVS Diastolic Thickness 0.9 cm 0.6 - 1.0 / 0.6 - 0.9 cm LVPW Diastolic Thickness 0.6 cm 0.6 - 1.0 / 0.6 - 0.9 cm LV Relative Wall Thickness 0.4 DOPPLER AV Peak Velocity 166.0 cm/s AV Peak Gradient 11.0 mmHg LVOT Peak Velocity 80.9 cm/s LVOT Peak Gradient 2.6 mmHg MV Peak Velocity 145.0 cm/s MV Peak Gradient 8.4 mmHg MV Mean Velocity 74.9 cm/s MV Mean Gradient 3.0 mmHg Mitral E Point Velocity 90.5 cm/s Mitral A Point Velocity 139.0 cm/s Mitral E to A Ratio 0.7 TR Peak Velocity 274.0 cm/s TR Peak Gradient 30.0 mmHg FINDINGS LEFT VENTRICLE Normal left ventricular size. Wall thickness is measured at the upper limits of normal. The left ventricular systolic function is hyperdynamic with an estimated ejection fraction in the ra nge of 65- 70%. RIGHT VENTRICLE Normal right ventricular size and systolic function. LEFT ATRIUM The left atrial size is normal. RIGHT ATRIUM The right atrial size is normal. ATRIAL SEPTUM Normal atrial septal thickness without atrial level shunting by limited color doppler interrogation. AORTA The aortic root and proximal ascending aorta are normal in size on limited imaging. MITRAL VALVE Mitral annular calcification is present. AORTIC VALVE Aortic valve sclerosis is present. Trace aortic valve regurgitation. TRICUSPID VALVE Structurally normal tricuspid valve. No tricuspid valve stenosis or regurgitation. PULMONARY VALVE The pulmonary valve is not well visualized. VESSELS The inferior vena cava is normal in size. PERICARDIUM No pericardial effusion. Niranjan aCrlton MD, FACC (Electronically Signed) Final Date:30 December 2016 16:48
[2016-12-30] MEDS: methylPREDNISolone SOD SUCC 125 MG/2 ML VIAL IV PUSH SCH (21:00)
[2016-12-30] MEDS: MULTIVITAMIN INJ 10 ML, FOLIC ACID INJ 1 MG in AMINO ACID IN D5W W/ELECTROLYT 1,000 ML IV SCH ×3 (21:01)
[2016-12-30] MEDS: FAT EMULSION 20% INJ 250 ML (@10 mls/hr) IV-CENTRAL SCH (21:02)
[2016-12-30] MEDS: AMITRIPTYLINE HCL 25 MG TAB PO SCH (21:02)
[2016-12-30] MEDS: ENOXAPARIN SODIUM 40 MG/0.4 ML SYRINGE SQ SCH (22:45)
[2016-12-31] VITALS (23 sets, daily range): BP systolic 96–142; BP diastolic 49–65; PULSE 84–101; RESP 14–34; TEMP 97.6–98.7; O2SAT 71–100
[2016-12-31] MEDS: HYDROmorphone HCL PF 1 MG/ML VIAL IV PUSH PRN ×3 (00:09→21:13)
[2016-12-31] MEDS: ONDANSETRON HCL 4 MG/2 ML VIAL IV PUSH PRN ×2 (00:10→21:12)
[2016-12-31] MEDS: RESP: ALBUTEROL 2.5 MG/IPRATROPIUM 0.5 MG NEB (SCH) INH ×6 (02:50→23:00)
[2016-12-31] MEDS: VANCOMYCIN INJ 1,250 MG in SODIUM CHLOR 0.9% 250 ML INJ 250 ML IV SCH ×2 (03:42→17:06)
[2016-12-31] MEDS: PIPERACIL-TAZO 4.5 GM PREMIX 100 ML IV SCH ×4 (03:42→21:15)
[2016-12-31] MEDS: FUROSEMIDE 40 MG/4 ML VIAL IV PUSH SCH (05:19)
[2016-12-31] MEDS: LEVOTHYROXINE SODIUM 75 MCG TAB PO SCH (05:19)
[2016-12-31 05:29] LABS: BLOOD GAS BASE EXCESS 4.8 mmol/L (-2-2); BLOOD GAS CARBOXYHEMOGLOBIN 1.9 % (0-4); BLOOD GAS HCO3 29 mmol/L (22-26); BLOOD GAS O2 HGB SATURATION 91 % (90-100); BLOOD GAS OXYGEN CONTENT 14.4 Vol % (12.0-20.0); BLOOD GAS PCO2 46 mmHg (38-42); BLOOD GAS PO2 71 mmHg (61-120); BLOOD GAS TOTAL HGB 11.2 G/DL (12.0-16.0); CRITICAL VALUE NO; DRAW SITE LT RADIAL; FIO2 34 %; LITER FLOW 15 L/M; NUMBER OF ARTERIAL PUNCTURES 1; OXYGEN DEVICE HI FLO NC; STAT NO; TEMP CORR TO 98.6; ULNAR PULSE PRESENT
--- NOTE | 2016-12-31 05:45 | RADRPT ---
EXAM DATE/TIME: 12/31/2016 03:51 [facility] COMPARISON: CHEST SINGLE AP, December 29, 2016, 21:11. INDICATIONS : Evaluate for atelectasis MEDICAL HISTORY : Hypertension. Cardiovascular disease Carcinoma, lung. SURGICAL HISTORY : Hysterectomy. G-tube reversal ENCOUNTER: Subsequent ACUITY: 3 days PAIN SCORE: Non-responsive. LOCATION: Bilateral chest FINDINGS: A single view of the chest demonstrates the esophageal stent and a right IJ [id number] are in good position. There is persistent consolidation left lower lobe with bilateral pleural effusions left gr eater than right. Mild pulmonary hilar vascular congestion. The cardiomediastinal contours are unrem arkable. Osseous structures are intact. CONCLUSION: Esophageal stent in good position. Minimal consolidation left lower lobe with a pleural effusion. Niranjan Cardenas MD on December 31, 2016 at 5:43 Board Certified Radiologist. This report was verified electronically.
[2016-12-31 07:24] LABS: POTASSIUM 3.2 MEQ/L (3.5-5.1)
[2016-12-31] MEDS: CLORAZEPATE PO SCH ×3 (09:00→18:00)
[2016-12-31] MEDS: [UNRECOGNIZED DRUG - OTHER] PO SCH ×3 (09:00→18:00)
[2016-12-31] MEDS: guaiFENesin SOLUTION 200 MG/10 ML CUP PO SCH ×2 (09:00→19:50)
[2016-12-31] MEDS: methylPREDNISolone SOD SUCC 125 MG/2 ML VIAL IV PUSH SCH ×2 (09:04→21:13)
[2016-12-31] MEDS: LISINOPRIL 10 MG TAB PO SCH (09:05)
[2016-12-31] MEDS: NYSTATIN SUSP 500,000 U/5 ML CUP SWISH-SWAL SCH ×4 (09:05→21:14)
[2016-12-31] MEDS: SODIUM CHLORIDE 0.9% FLUSH 10 ML FLUSH IV FLUSH SCH ×2 (09:05→21:15)
[2016-12-31] MEDS: PANTOPRAZOLE SOD 40 MG DELAYED RELEASE TAB PO SCH ×2 (09:05→21:12)
[2016-12-31] MEDS: MORPHINE SULFATE 15 MG CONTROLLED RELEASE TAB PO SCH ×2 (09:06→21:12)
[2016-12-31] MEDS: POTASSIUM CHLOR 20 MEQ PREMIX 100 ML IV PRN ×3 (09:32→17:12)
--- NOTE | 2016-12-31 11:30 | EKG ---
Date Performed: 12/30/2016 Time Performed: 12:02:44 PTAGE: 76 years EKG: Sinus rhythm POSSIBLE LEFT ATRIAL ENLARGEMENT LOW QRS VOLTAGE IN PRECORDIAL LEADS Consider anterior myocardial in farction - age indeterminate ABNORMAL ECG PREVIOUS TRACING : 12/29/2016 21.11 DOCTOR: Gerardo Barnes Interpretating Date/Time 12/31/2016 11:28:42
--- NOTE | 2016-12-31 11:32 | HHI.IDPN ---
Note Infectious Disease Note Patient was transferred to [facility] [place] because of respiratory distress an hypoxemia. On nasal O2. Now has positive blood cultures in 3 bottles of four. Blood cultures drawn on 12/29 for fever and increased WBC. Afebrile. S/P esophageal stent and PEG on 12/24/16. Peg was placed into previous peg site where a fistula was noted. Patient is alert. no complaints. Denies chills, sweats, nausea or vomiting. On TPN. Patient has infusa port which she says was placed in Jun 2016. Admitted after PEG dislodged noted to have surrounding erythema. PAST MEDICAL HISTORY: 1. 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 2. Esophageal strictures. 3. Radiation esophagitis. 4. Hypothyroidism. 5. Hypertension. 6. Gastroesophageal reflux disease (GERD). 7. Hyperlipidemia. 8. COPD. 9. Macular degeneration. 10. Hysterectomy. 11. Tonsillectomy. 12. Tubal ligation. ALLERGIES: OXACILLIN. ANTIBIOTICS: Vancomycin. OBJECTIVE: Vital Signs Date Time Temp Pulse Resp B/P (MAP) Pulse Ox O2 Delivery O2 Flow Rate FiO2 12/31/16 07:56 95 High Flow Nasal Cannula 15.00 35 12/31/16 06:00 89 12/31/16 05:25 94 High Flow Nasal Cannula 15.00 30 12/31/16 04:00 98.7 85 20 101/56 (71) 95 12/31/16 04:00 85 12/31/16 02:00 85 12/31/16 01:32 95 High Flow Nasal Cannula 15.00 35 12/31/16 00:00 98.3 90 22 109/52 (71) 96 12/31/16 00:00 90 12/30/16 20:26 97 High Flow Nasal Cannula 20.00 50 12/30/16 20:00 90 12/30/16 20:00 99.0 90 22 96/66 (76) 96 12/30/16 19:00 98 Nasal Cannula 40 12/30/16 18:58 18 12/30/16 16:00 97.8 106 30 104/51 (68) 100 12/30/16 12:00 98.5 96 20 128/59 (82) 96 12/30/16 11:40 20 Laboratory Tests Test 12/29/16 22:21 12/30/16 10:41 White Blood Count 14.8 TH/MM3 10.2 TH/MM3 Red Blood Count 4.01 MIL/MM3 3.94 MIL/MM3 Hemoglobin 10.6 GM/DL 11.0 GM/DL Hematocrit 33.8 % 33.6 % Mean Corpuscular Volume 84.2 FL 85.2 FL Mean Corpuscular Hemoglobin 26.5 PG 27.8 PG Mean Corpuscular Hemoglobin Concent 31.5 % 32.6 % Red Cell Distribution Width 21.8 % 22.2 % Platelet Count 244 TH/MM3 198 TH/MM3 Mean Platelet Volume 8.0 FL 9.1 FL Neutrophils (%) (Auto) 92.2 % 92.5 % Lymphocytes (%) (Auto) 2.4 % 5.0 % Monocytes (%) (Auto) 5.0 % 2.3 % Eosinophils (%) (Auto) 0.1 % 0.0 % Basophils (%) (Auto) 0.3 % 0.2 % Neutrophils # (Auto) 13.7 TH/MM3 9.4 TH/MM3 Lymphocytes # (Auto) 0.4 TH/MM3 0.5 TH/MM3 Monocytes # (Auto) 0.7 TH/MM3 0.2 TH/MM3 Eosinophils # (Auto) 0.0 TH/MM3 0.0 TH/MM3 Basophils # (Auto) 0.0 TH/MM3 0.0 TH/MM3 CBC Comment DIFF FINAL DIFF FINAL Differential Comment Laboratory Tests Test 12/29/16 22:21 12/30/16 10:41 12/30/16 13:46 12/31/16 06:10 Blood Urea Nitrogen 9 MG/DL Creatinine 0.49 MG/DL 0.74 MG/DL Random Glucose 104 MG/DL Total Protein 7.1 GM/DL Albumin 2.2 GM/DL Calcium Level 8.2 MG/DL Alkaline Phosphatase 188 U/L Aspartate Amino Transf (AST/SGOT) 22 U/L Alanine Aminotransferase (ALT/SGPT) 18 U/L Total Bilirubin 0.6 MG/DL Sodium Level 134 MEQ/L Potassium Level 3.3 MEQ/L 3.2 MEQ/L Chloride Level 95 MEQ/L Carbon Dioxide Level 31.3 MEQ/L Anion Gap 8 MEQ/L Estimat Glomerular Filtration Rate 122 ML/MIN 76 ML/MIN B-Type Natriuretic Peptide 385 PG/ML 371 PG/ML Total Creatine Kinase 133 U/L Creatine Kinase MB 1.5 NG/ML Troponin I 0.03 NG/ML Microbiology Date/Time Source Procedure Growth Status 12/30/16 03:21 Blood Peripheral Aerobic Blood Culture - Preliminary Gram Positive Cocci Resulted 12/30/16 03:21 Anaerobic Blood Culture - Preliminary Gram Positive Cocci Resulted 12/30/16 03:16 Blood Peripheral Aerobic Blood Culture - Preliminary NO GROWTH IN 1 DAY Resulted 12/30/16 03:16 Anaerobic Blood Culture - Preliminary Gram Positive Cocci Resulted 12/30/16 03:00 Urine Catheterized Urine Legionella Antigen - Final PRESUMPTIVE NEGATIVE FOR LEGIONELLA P... Complete 12/30/16 03:00 Urine Catheterized Urine Streptococcus pneumoniae Antigen (M - Final PRESUMPTIVE NEGATIVE FOR STREPTOCOCCU... Complete 12/30/16 03:00 Urine Random Urine Urine Culture Pending Worksheet IMAGING: Chest X-Ray 12/31/16 0600 Signed Impressions: Service Date/Time: Saturday, December 31, 2016 03:51 - CONCLUSION: Esophageal stent in good position. Minimal consolidation left lower lobe with a pleural effusion. Niranjan Cardenas MD CT Angiography 12/29/16 0000 Signed Impressions: Service Date/Time: December 01:02 - CONCLUSION: 1. Negative for pulmonary embolus. 2. Esophageal stent present with abnormal soft tissue in the mediastinum around the esophageal stent. 3. Stable 2.3 cm nodule upper left lung. 4. Development of bilateral pleural effusions, left greater than right with partial loculation on the left side and compressive atelectasis in both lungs. Tio Espinoza MD GI Procedure 12/24/16 1119 Signed Impressions: Service Date/Time: Saturday, December 24, 2016 11:24 - CONCLUSION: 1. Esophageal stent in excellent position. Clifford Machado MD Upper GI Series 12/23/16 0000 Signed Impressions: Service Date/Time: December 09:22 - CONCLUSION: 1. No evidence of fistula or obstruction. 2. Small diverticulum along the distal esophagus. Louie Conrad MD Abdomen/Pelvis CT 12/10/16 0000 Signed Impressions: Service Date/Time: Saturday, December 10, 2016 20:17 - CONCLUSION: 1. Focal thickening of the left rectus muscle with sinus tract extending from the lumen of the stomach into the rectus, presumably at site of prior percutaneous gastrostomy. 2. Moderate-sized left pleural effusion. No evidence of ascites. 3. 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 4. Sigmoid diverticulosis without radiographic evidence of diverticulitis. Armando Harrington MD PHYSICAL EXAMINATION: GENERAL: No acute distress. HEENT: No icterus. Oropharynx with moist mucosa. No visible lesions. NECK: The neck is supple without adenopathy. LUNGS: Clear breath sounds. HEART: Regular S1 and S2 without murmurs. No rubs or gallops. CHEST: Chest infusion port is present at the right upper chest wall and appears intact. No erythema. ABDOMEN: Bowel sounds present, mildly distended. Non tender. No erythema. EXTREMITIES: No clubbing or cyanosis or edema. SKIN: No rash. NEUROLOGIC: Nonfocal. PSYCHIATRIC: calm and cooperative. IMPRESSION: 1. Bacteremia gram positive. Patient does not look toxic. 2. 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 3. Leukocytosis. WBC down to nl range. RECOMMENDATIONS: 1. continue Vancomycin. 2. Repeat the blood cultures from port and peripheral. 3. Monitor the blood cultures. 4. May need to remove the infusaport. Dr Billy Camara covering weekend. D/W RN. Karlos Guy MD Dec 31, 2016 11:32
[2016-12-31 13:01] LABS: ALKALINE PHOSPHATASE 127 U/L (45-117); ALT (GPT) 16 U/L (10-53); ANION GAP 8 MEQ/L (5-15); AST (GOT) 23 U/L (15-37); BICARBONATE 28.7 MEQ/L (21.0-32.0); BLOOD UREA NITROGEN 20 MG/DL (7-18); CHLORIDE 102 MEQ/L (98-107); GLOMERULAR FILTRATION RATE 82 ML/MIN (>89); POTASSIUM 3.2 MEQ/L (3.5-5.1); SODIUM (NA) 139 MEQ/L (136-145); TOTAL BILIRUBIN ADULT 0.3 MG/DL (0.2-1.0)
--- NOTE | 2016-12-31 13:53 | PD.ONC.PN ---
Subjective Subjective Remarks Reports feeling tired today O2 down to 4 L nasal cannula Trying to increase by mouth intake Objective Data Date Time Temp Pulse Resp B/P (MAP) Pulse Ox O2 Delivery O2 Flow Rate FiO2 12/31/16 11:30 93 Nasal Cannula 5.00 12/31/16 07:56 95 High Flow Nasal Cannula 15.00 35 12/31/16 06:00 89 12/31/16 05:25 94 High Flow Nasal Cannula 15.00 30 12/31/16 04:00 98.7 85 20 101/56 (71) 95 12/31/16 04:00 85 12/31/16 02:00 85 12/31/16 01:32 95 High Flow Nasal Cannula 15.00 35 12/31/16 00:00 98.3 90 22 109/52 (71) 96 12/31/16 00:00 90 12/30/16 20:26 97 High Flow Nasal Cannula 20.00 50 12/30/16 20:00 90 12/30/16 20:00 99.0 90 22 96/66 (76) 96 12/30/16 19:00 98 Nasal Cannula 40 12/30/16 18:58 18 12/30/16 16:00 97.8 106 30 104/51 (68) 100 12/31/16 12/31/16 12/31/16 06:59 14:59 22:59 Intake Total 1010 ml 200 ml Output Total 500 ml Balance 510 ml 200 ml Result Diagram: 12/30/16 1041 12/31/16 0610 Laboratory Results Laboratory Tests Test 12/31/16 05:10 12/31/16 06:10 Blood Gas Puncture Site LT RADIAL Blood Gas Patient Temperature 98.6 Blood Gas HCO3 29 mmol/L Blood Gas Base Excess 4.8 mmol/L Blood Gas Oxygen Saturation 91 % Arterial Blood pH 7.42 Arterial Blood Partial Pressure CO2 46 mmHg Arterial Blood Partial Pressure O2 71 mmHg Arterial Blood Oxygen Content 14.4 Vol % Arterial Blood Carboxyhemoglobin 1.9 % Arterial Blood Methemoglobin 1.0 % Blood Gas Hemoglobin 11.2 G/DL Oxygen Delivery Device HI JORJE NC Blood Gas Liter Flow 15 L/M Blood Gas Inspired Oxygen 34 % Blood Urea Nitrogen 20 MG/DL Creatinine 0.69 MG/DL Random Glucose 107 MG/DL Total Protein 6.1 GM/DL Albumin 1.9 GM/DL Calcium Level 7.5 MG/DL Alkaline Phosphatase 127 U/L Aspartate Amino Transf (AST/SGOT) 23 U/L Alanine Aminotransferase (ALT/SGPT) 16 U/L Total Bilirubin 0.3 MG/DL Sodium Level 139 MEQ/L Potassium Level 3.2 MEQ/L Chloride Level 102 MEQ/L Carbon Dioxide Level 28.7 MEQ/L Anion Gap 8 MEQ/L Estimat Glomerular Filtration Rate 82 ML/MIN Culture Results Microbiology Date/Time Source Procedure Growth Status 12/31/16 12:27 Blood Peripheral Aerobic Blood Culture Pending Received 12/31/16 12:27 Blood Peripheral Anaerobic Blood Culture Pending Received 12/31/16 12:25 Blood Peripheral Aerobic Blood Culture Pending Received 12/31/16 12:25 Blood Peripheral Anaerobic Blood Culture Pending Received 12/30/16 03:21 Blood Peripheral Aerobic Blood Culture - Preliminary Gram Positive Cocci Resulted 12/30/16 03:21 Anaerobic Blood Culture - Preliminary Gram Positive Cocci Resulted 12/30/16 03:16 Blood Peripheral Aerobic Blood Culture - Preliminary NO GROWTH IN 1 DAY Resulted 12/30/16 03:16 Anaerobic Blood Culture - Preliminary Gram Positive Cocci Resulted 12/30/16 03:00 Urine Catheterized Urine Legionella Antigen - Final PRESUMPTIVE NEGATIVE FOR LEGIONELLA P... Complete 12/30/16 03:00 Urine Catheterized Urine Streptococcus pneumoniae Antigen (M - Final PRESUMPTIVE NEGATIVE FOR STREPTOCOCCU... Complete 12/30/16 03:00 Urine Random Urine Urine Culture Pending Worksheet Imaging Studies Last 24 hours Impressions Chest X-Ray 12/31/16 0600 Signed Impressions: Service Date/Time: Saturday, December 31, 2016 03:51 - CONCLUSION: Esophageal stent in good position. Minimal consolidation left lower lobe with a pleural effusion. Niranjan Cardenas MD Administered Medications Medications (Trade) Dose Ordered Sig/Alla Route PRN Reason Start Time Stop Time Status Last Admin Dose Admin Sodium Chloride (NS Flush) 2 ml BID IV FLUSH 12/10/16 21:00 12/31/16 09:05 Enoxaparin Sodium (Lovenox Inj) 40 mg Q24H SQ 12/10/16 22:45 Future hold 12/30/16 22:45 Amitriptyline HCl (Elavil) 25 mg HS PO 12/11/16 21:00 12/30/16 21:02 Levothyroxine Sodium (Synthroid) 75 mcg DAILY@07 PO 12/11/16 07:00 12/31/16 05:19 Lisinopril (Prinivil) 10 mg DAILY PO 12/11/16 09:00 12/31/16 09:05 Fat Emulsion Intravenous 250 ml @ 10 mls/hr Q24H IV-CENTRAL 12/11/16 20:00 12/30/16 21:02 Hydromorphone HCl (Dilaudid Pf Inj) 1 mg Q3H PRN IV PUSH PAIN SCALE 5 TO 10 12/12/16 14:45 12/31/16 03:42 Nystatin (Mycostatin Liq) 5 ml QID SWISH-SWAL 12/19/16 18:00 12/31/16 13:22 Miscellaneous Information 1 Q3D T-DERMAL 12/20/16 18:00 12/26/16 18:00 Guaifenesin (Robitussin Liq) 600 mg BID PO 12/21/16 09:45 12/30/16 21:00 Patient Own Medication PT OWN MED: TRANXENE-T (CLORAZEPA... TID PO 12/23/16 13:00 Future hold 12/31/16 13:00 Pantoprazole Sodium (Protonix) 40 mg Q12HR PO 12/24/16 12:45 12/31/16 09:05 Ondansetron HCl (Zofran Inj) 4 mg Q4HR PRN IV PUSH N/V 12/24/16 18:00 12/31/16 00:10 Multivitamins 10 ml/Folic Acid 1 mg/Amino Acids/ Electrolytes/ Dextrose 1,010.2 ml @ 20 mls/hr Q24H IV 12/29/16 20:00 12/30/16 21:01 Morphine Sulfate (Oramorph Sr) 15 mg BID PO 12/28/16 21:00 12/31/16 09:06 Oxycodone HCl (Roxicodone) 5 mg Q4H PRN PO PAIN SCALE 1 TO 4 12/28/16 14:30 12/31/16 13:31 Piperacillin Sod/ Tazobactam Sod 100 ml @ 200 mls/hr Q6H IV 12/30/16 03:00 12/31/16 09:05 Vancomycin HCl 1250 mg/Sodium Chloride 262.5 ml @ 250 mls/hr Q12H IV 12/30/16 16:00 12/31/16 03:42 Potassium Chloride 100 ml @ 50 mls/hr Q2H PRN IV For Potassium 2.8 - 3.2 mEq/L 12/30/16 12:15 12/31/16 13:25 Potassium Chloride 100 ml @ 50 mls/hr Q2H PRN IV For Potassium 3.3 - 3.5 mEq/L 12/30/16 12:15 12/30/16 14:36 Methylprednisolone Sodium Succinate (SoluMEDROL INJ) 60 mg Q12HR IV PUSH 12/30/16 21:00 12/31/16 09:04 Albuterol/ Ipratropium (Duoneb Neb) 1 ampule Q4HR NEB INH 12/30/16 16:00 12/31/16 07:56 Objective Remarks GENERAL: Elderly female upright in bed. SKIN: Warm and dry. HEAD: Normocephalic. EYES: No injection or drainage. NECK: Supple, trachea midline. CARDIOVASCULAR: Regular rate and rhythm RESPIRATORY: Clear anteriorly. Breathing unlabored at rest on high flow O2 GASTROINTESTINAL: Abdomen soft, non-distended. PEG tube clamped. EXTREMITIES: No cyanosis. No edema. NEUROLOGICAL: Normal speech. Moving all extremities. No obvious deficit. Assessment/Plan Problem List: (1) Dysphagia ICD Codes: R13.10 - Dysphagia, unspecified Status: Acute Plan: -- Weaning TPN -- Oral nutrition improving History --presents to [facility] with recurrent symptoms from her radiation esophagitis. --Due to significant dysphagia a PEG tube was placed. --had complications from the PEG tube insertion site. --++large amount of leakage and a copious amount of purulent drainage from the PEG tube insertion site. +concern for abdominal wall fistula. --EGD and stent placement and PEG placement on 12.24-->EGD showed Radiation esophagitis, Esophageal stricture, Gastrocutaneous fistula, Gastric ulcers --upper GI series, 12/23-->No evidence of fistula or obstruction. Small diverticulum along the distal esophagus. (2) Non-small cell lung cancer (NSCLC) ICD Codes: C34.90 - Malignant neoplasm of unspecified part of unspecified bronchus or lung Status: Acute Plan: --further treatment in clinic once improvement in current conditions History: diagnosed via CT-guided biopsy in June of 2016. PET/CT scan confirmed this disease to be Stage III-B. --received concurrent chemotherapy and radiation treatments. --had a total of four cycles of chemotherapy. --Follow-up imaging showed a residual lung lesion in the left upper lobe which was 1.8 x 2.4 x 3.8 cm. The patient was recommended two additional consolidation treatments but unfortunately due to her decline in performance status, she was not able to be given this treatment. (3) Normocytic anemia ICD Codes: D64.9 - Anemia, unspecified Status: Acute Plan: monitor and transfuse as needed, given iron IV History: --patient became severely anemic with a hemoglobin in the 6 range and she was given 2 units of packed red blood cells. --no evidence of hemolysis. --likely losing blood through the GI tract. --also a component of malnutrition. --currently being seen by GI and further workup is ongoing. --ordered daily IV iron x 3 treatments. (4) Pain ICD Codes: R52 - Pain, unspecified Status: Acute Plan: --on IV Dilaudid p.r.n. 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 currently getting wound care. --has also been evaluated by Surgery and there are no surgical plans at this time. Assessment 76y/o female with a history of [id number] lung cancer who was admitted to the hospital for complications from radiation esophagitis. h/o History of [id number] lung cancer, Stage III-B, status post concurrent chemotherapy and radiation treatment. Esophageal strictures status post dilatation x 4. Hypertension. Port placement. Lung biopsy. Hysterectomy. Tonsillectomy. PEG tube placement. Plan 1. O2 down to 4 L nasal cannula 2. Albumin worsening; will increase TPN to 40ml/hr. 3. Encourage good nutrition; continue calorie counts 4. Antibiotics per infectious disease Discussed with RN Attending Statement The exam, history, and the medical decision-making described in the above note were completed with the assistance of the mid-level provider. I reviewed and agree with the findings presented. I attest that I had a [id number] encounter with the patient on the same day, and personally performed and documented my assessment and findings in the medical record Some clinical improvement --on nasal canula oral intake improved but Hypoalbuminemia levels worse TPN up-titrated mehul campoverde over night events reviewed Isabel Navarro Dec 31, 2016 13:53 Montrell Montiel MD Dec 31, 2016 22:43
--- NOTE | 2016-12-31 15:35 | HHI.GIFU ---
Subjective Remarks Resting in bed. Breathing slightly more labored this afternoon since being taken off the high flow O2. Drsg d/i- does not want this to be touched at this time, as it is not draining. (Venecia Patel) Objective Vitals I&O Vital Signs Date Time Temp Pulse Resp B/P (MAP) Pulse Ox O2 Delivery O2 Flow Rate FiO2 12/31/16 14:00 97 32 131/60 (83) 95 12/31/16 14:00 97 12/31/16 13:00 97 30 125/61 (82) 95 12/31/16 13:00 97 12/31/16 12:00 97.8 93 25 116/58 (77) 93 12/31/16 12:00 93 12/31/16 11:30 93 Nasal Cannula 5.00 12/31/16 11:00 94 12/31/16 11:00 94 20 130/61 (84) 96 12/31/16 10:00 95 26 129/60 (83) 81 12/31/16 10:00 96 Nasal Cannula 6.00 Mixing Tumbler Operator 12/31/16 10:00 95 12/31/16 09:00 100 12/31/16 09:00 100 34 122/62 (82) 71 12/31/16 08:30 86 12/31/16 08:30 86 15 96/49 (65) 95 12/31/16 08:00 97.6 84 14 102/51 (68) 100 12/31/16 08:00 84 12/31/16 07:56 95 High Flow Nasal Cannula 15.00 35 12/31/16 07:00 Nasal Cannula 15.00 30 Mixing Tumbler Operator 12/31/16 06:00 89 12/31/16 05:25 94 High Flow Nasal Cannula 15.00 30 12/31/16 04:00 98.7 85 20 101/56 (71) 95 12/31/16 04:00 85 12/31/16 02:00 85 12/31/16 01:32 95 High Flow Nasal Cannula 15.00 35 12/31/16 00:00 98.3 90 22 109/52 (71) 96 12/31/16 00:00 90 12/30/16 20:26 97 High Flow Nasal Cannula 20.00 50 12/30/16 20:00 90 12/30/16 20:00 99.0 90 22 96/66 (76) 96 12/30/16 19:00 98 Nasal Cannula 40 12/30/16 18:58 18 12/30/16 16:00 97.8 106 30 104/51 (68) 100 I/O 12/30/16 12/30/16 12/30/16 12/31/16 12/31/16 12/31/16 06:59 14:59 22:59 06:59 14:59 22:59 Intake Total 684 ml 200 ml 1426 ml 1010 ml 200 ml Output Total 1500 ml 1650 ml 500 ml Balance -816 ml 200 ml -224 ml 510 ml 200 ml Intake Oral 400 ml IV Total 684 ml 200 ml 667 ml 600 ml 200 ml TPN/PPN 239 ml 260 ml Lipid 120 ml 150 ml Output Urine Total 1500 ml 1650 ml 500 ml # Bowel Movements 0 2 Laboratory Laboratory Tests Test 12/31/16 05:10 12/31/16 06:10 Blood Gas Puncture Site LT RADIAL Blood Gas Patient Temperature 98.6 Blood Gas HCO3 29 Blood Gas Base Excess 4.8 Blood Gas Oxygen Saturation 91 Arterial Blood pH 7.42 Arterial Blood Partial Pressure CO2 46 Arterial Blood Partial Pressure O2 71 Arterial Blood Oxygen Content 14.4 Arterial Blood Carboxyhemoglobin 1.9 Arterial Blood Methemoglobin 1.0 Blood Gas Hemoglobin 11.2 Oxygen Delivery Device HI JORJE NC Blood Gas Liter Flow 15 Blood Gas Inspired Oxygen 34 Blood Urea Nitrogen 20 Creatinine 0.69 Random Glucose 107 Total Protein 6.1 Albumin 1.9 Calcium Level 7.5 Alkaline Phosphatase 127 Aspartate Amino Transf (AST/SGOT) 23 Alanine Aminotransferase (ALT/SGPT) 16 Total Bilirubin 0.3 Sodium Level 139 Potassium Level 3.2 Chloride Level 102 Carbon Dioxide Level 28.7 Anion Gap 8 Estimat Glomerular Filtration Rate 82 Date/Time Source Procedure Growth Status 12/31/16 12:27 Blood Peripheral Aerobic Blood Culture Pending Received 12/31/16 12:27 Blood Peripheral Anaerobic Blood Culture Pending Received 12/11/16 17:57 Fluid Other Gram Stain - Final Complete 12/11/16 17:57 Fluid Other Body Fluid Culture - Final NO GROWTH IN 72 HRS.--AEROBICALLY OR ... Complete 12/30/16 03:00 Urine Catheterized Urine Legionella Antigen - Final PRESUMPTIVE NEGATIVE FOR LEGIONELLA P... Complete 12/30/16 03:00 Urine Catheterized Urine Streptococcus pneumoniae Antigen (M - Final PRESUMPTIVE NEGATIVE FOR STREPTOCOCCU... Complete 12/10/16 15:15 Wound Drainage Gram Stain - Final Complete 12/10/16 15:15 Wound Culture - Final Lactobacillus Species Complete Imaging Last Impressions Chest X-Ray 12/31/16 0600 Signed Impressions: Service Date/Time: Saturday, December 31, 2016 03:51 - CONCLUSION: Esophageal stent in good position. Minimal consolidation left lower lobe with a pleural effusion. Niranjan Cardenas MD CT Angiography 12/29/16 0000 Signed Impressions: Service Date/Time: December 01:02 - CONCLUSION: 1. Negative for pulmonary embolus. 2. Esophageal stent present with abnormal soft tissue in the mediastinum around the esophageal stent. 3. Stable 2.3 cm nodule upper left lung. 4. Development of bilateral pleural effusions, left greater than right with partial loculation on the left side and compressive atelectasis in both lungs. Tio Espinoza MD GI Procedure 12/24/16 1119 Signed Impressions: Service Date/Time: Saturday, December 24, 2016 11:24 - CONCLUSION: 1. Esophageal stent in excellent position. Clifford Machado MD [facility] 12/23/16 0000 Signed Impressions: Service Date/Time: December 09:22 - CONCLUSION: 1. No evidence of fistula or obstruction. 2. Small diverticulum along the distal esophagus. Louie Conrad MD Abdomen/Pelvis CT 12/10/16 0000 Signed Impressions: Service Date/Time: Saturday, December 10, 2016 20:17 - CONCLUSION: 1. Focal thickening of the left rectus muscle with sinus tract extending from the lumen of the stomach into the rectus, presumably at site of prior percutaneous gastrostomy. 2. Moderate-sized left pleural effusion. No evidence of ascites. 3. 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 4. Sigmoid diverticulosis without radiographic evidence of diverticulitis. Armando Harrington MD Physical Exam HEENT: Normocephalic; atraumatic CHEST: Resp shallow/even, mildly labored, diminished. CARDIAC: RRR. ABDOMEN: Soft, nondistended, no hepatosplenomegaly; bowel sounds are present in all four quadrants. PEG tube clamped, drsg d/i EXTREMITIES: Trace ble edema. SKIN: Normal; no rash; no jaundice. ACETONE BUTTON PASTER: No focal deficits; alert and oriented times three. 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 S/P EGD with esophageal stent placement and PEG placement (12/24/16)-----> Radiation esophagitis, Esophageal stricture, Gastrocutaneous fistula, Gastric ulcers. PPI, TPN. She is tolerating a soft diet although her meal percentages are not being recorded consistently. Calorie count in process. Eating most of meals. TPN at 20cc/hr, okay to d/c after this current bag. 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 Pt came to office on 12/08 for peg tube site pain and drainage. The tube was noted to be dislodged and was completely removed. The incision was packed and she was given Augmentin suspension. She reports that since the tube was removed, it has been draining copious amounts of purulent She was seen in office today (12/10/16) with significant leakage from the peg tube site, with moderate erythema noted surrounding the site. She was sent to the hospital for IV antibiotics, TPN, and possible I&D. She denies fevers/chills. Abdomen/Pelvis CT (12/10/16)----> 1. Focal thickening of the left rectus muscle with sinus tract extending from the lumen of the stomach into the rectus, presumably at site of prior percutaneous gastrostomy. 2. Moderate-sized left pleural effusion. No evidence of ascites. 3. 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 4. Sigmoid diverticulosis without radiographic evidence of diverticulitis. Fistula site with drainage bag with large amount of dark drainage. NPO. TPN. Wound culture with lactobacillus species. Fluid with no growth x 48 hours. Site itself much improved- not red or indurated. S/P EGD with clip placement (12/17/16)----> Mid-esophageal radiation esophagitis with stricturing but I was able to pass the scope with ease, stomach there was a large opening and on the anterior wall of the stomach that connects to the skin and I cauterized the track with silver nitrate and I applied 4 clips on the inside at the opening of the fistula in hopes to reduce the amount of gastric juice flow and an NG tube was placed so that we can suction gastric contents. The duodenum was normal. The NGT was removed. Her gastric drainage is decreasing from the fistula. [facility] (12/23/16 )----> 1. No evidence of fistula or obstruction. 2. Small diverticulum along the distal esophagus. S/P Rpt. EGD with stent placement/peg placement as above (12/24). The nurse reported on (12/30) that when she went to change that abdominal dressing , the PEG tube was found cut in half with the cut portion taped to the dressing. The PEG tube is clamped. The bumper appears to be still occluding the opening. Since we are not using the PEG tube for feedings this should be okay until she has her repeat EGD with esophageal stent and PEG tube removal in one month. Continue wound care. Plan is for EGD with stent/peg removal in one month - Resp. Insuffienciency/Cough/Hypoxia. Having a little more shortness of breath this afternoon. Diuretics/steroids/nebs per CCM - Leukocytosis secondary to above. Improved. Vanco - GERD. PPI - Anemia, with drop in Hgb. Status post 3 units of packed red blood cells. H& H stable at 11.0/33.6. 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 S/P chemotherapy and radiotherapy, completed on 09/01/16. PET scan scheduled as outpatient. - Hypokalemia, HTN, Hypothyroidism, COPD, Hyperlipidemia, Macular degeneration per attending. PLAN: - Soft diet as tolerated - Record meal percentages - Calorie count. - Okay to d/c TPN after this current bag - PPI with BID dosing - Continue wound care- apply stoma powder to irritation and wiping often applying skin prep and letting dry before repeating the process a second time. Cover wound around the PEG tube with [employer] loosely packed in the wound bed. Cover with dry 4 x 4 drain sponge. Secure dressings with ABVD pad and mid fixed tape. Change dressing as needed - Supportive care - Rpt. EGD in 1 month to remove esophageal stent and PEG tube - Pt seen and examined by Dr. Paulson and myself and this note is written on his behalf (Venecia Patel) Physician Comments As above, will sign of for now, please notify us if needed. (Brent Paulson MD) Venecia Patel Dec 31, 2016 15:35 Brent Paulson MD Dec 31, 2016 16:00
[2016-12-31] MEDS: AMITRIPTYLINE HCL 25 MG TAB PO SCH (21:12)
[2016-12-31] MEDS: ENOXAPARIN SODIUM 40 MG/0.4 ML SYRINGE SQ SCH (21:13)
[2016-12-31 21:43] LABS: POTASSIUM 4.1 MEQ/L (3.5-5.1)
--- NOTE | 2016-12-31 22:43 | HHI.CCPN ---
Subjective Remarks/Hospital Course Hospital Course: 75-year-old female with a history of Stage III poorly differentiated non-small cell lung cancer diagnosed via CT-guided biopsy in June of 2016. She received concurrent chemotherapy and radiation treatments. She had a total of four cycles of chemotherapy. The patient was recommended two additional consolidation treatments but unfortunately due to her decline in performance status, she was not able to be given this treatment. She developed swallowing difficulty due to a postradiation esophageal stricture. She had dilatation without improvement of her symptoms. She continued to have dysphagia and a PEG tube was placed. She has had developed severe complications from the PEG tube insertion site with a large amount of leakage and a copious amount of purulent drainage from the PEG tube insertion site due to abdominal wall fistula. Her fistula tract is closed at the gastric end. The patient is currently on TPN. Her respiratory status was progressively getting worse over the past few days, and rapid response team was called due to severe hypoxemia at 15 weeks December 29 late night. The patient is transferred to ICU and critical care medicine is consulted for further management. Subjective: 12/30: still hypoxic requiring 60% high flow NC. complaining of chest pain this morning with nausea. chest pain is nonradiating, nonexertional. EKG done: NSR, no st-twave changes. otherwise ROS negative. 12/31: hypoxia significantly improved. now on 4L NC. diuresed well. ROS negative. patient without significant complaint. she does not want the haynes catheter removed. she also would prefer to be out of ICU because it is "noisy". Objective Vital Signs Date Time Temp Pulse Resp B/P (MAP) Pulse Ox O2 Delivery O2 Flow Rate FiO2 12/31/16 19:20 98 Nasal Cannula 4.00 12/31/16 18:00 93 12/31/16 18:00 18 126/60 (82) 12/31/16 16:00 98.5 12/31/16 07:56 35 Intake and Output 12/31/16 12/31/16 01/01/17 08:00 16:00 00:00 Intake Total 1010 ml 200 ml 1939 ml Output Total 500 ml 1700 ml Balance 510 ml 200 ml 239 ml Result Diagram: 12/30/16 1041 12/31/161999 Other Results Microbiology Date/Time Source Procedure Growth Status 12/30/16 03:00 Urine Catheterized Urine Legionella Antigen - Final PRESUMPTIVE NEGATIVE FOR LEGIONELLA P... Complete 12/30/16 03:00 Urine Catheterized Urine Streptococcus pneumoniae Antigen (M - Final PRESUMPTIVE NEGATIVE FOR STREPTOCOCCU... Complete Laboratory Tests Test 12/31/16 05:10 Blood Gas Puncture Site LT RADIAL Blood Gas Patient Temperature 98.6 Blood Gas HCO3 29 mmol/L (22-26) Blood Gas Base Excess 4.8 mmol/L (-2-2) Blood Gas Oxygen Saturation 91 % (90-100) Arterial Blood pH 7.42 (7.380-7.420) Arterial Blood Partial Pressure CO2 46 mmHg (38-42) Arterial Blood Partial Pressure O2 71 mmHg (61-120) Arterial Blood Oxygen Content 14.4 Vol % (12.0-20.0) Arterial Blood Carboxyhemoglobin 1.9 % (0-4) Arterial Blood Methemoglobin 1.0 % (0-2) Blood Gas Hemoglobin 11.2 G/DL (12.0-16.0) Oxygen Delivery Device HI JORJE NC Blood Gas Liter Flow 15 L/M Blood Gas Inspired Oxygen 34 % Objective Remarks GENERAL: Elderly appearing woman sitting in bed. SKIN: Warm and dry. HEAD: Normocephalic. EYES: No scleral icterus. No injection or drainage. NECK: Supple, trachea midline. CARDIOVASCULAR: Regular rate and rhythm. sinus by EKG. RESPIRATORY: Breath sounds equal bilaterally. No accessory muscle use.4L o2 by NC. spo2 97%. unlabored. GASTROINTESTINAL: Abdomen soft, non-tender, nondistended. MUSCULOSKELETAL: No cyanosis, or edema. NEURO EXAM: RASS 0. CAM -. no gross focal deficits. Procedures 12/17/2016 EGD with clip placement A/P Assessment and Plan Assessment: 76yF admitted to ICU with worsening acute hypoxic respiratory failure, abdominal wall fistula, esophageal stricture. Continue steroids and nebs. this appears most likely to be secondary to volume overload, as she is significantly improved with diuresis. stable for transfer out of ICU. will ask hospitalists to resume care. Respiratory distress- resolved. Acute hypoxemia- resolved. Probable volume overload/pulmonary edema- resolving. - CTA negative for PE. - continue abx until cultures result. - will start lasix 20mg iv daily. COPD exacerbation - steroids and nebs - aggressive pulmonary toilet. 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
[2016-12-31] MEDS: FUROSEMIDE 20 MG/2 ML VIAL IV PUSH SCH (23:17)
[2017-01-01] VITALS (20 sets, daily range): BP systolic 106–146; BP diastolic 50–90; PULSE 81–104; RESP 15–22; TEMP 97.5–98.4; O2SAT 92–98
[2017-01-01] MEDS: RESP: ALBUTEROL 2.5 MG/IPRATROPIUM 0.5 MG NEB (SCH) INH ×5 (02:52→21:07)
[2017-01-01] MEDS ORDERED: PHARMACY ORDERED LAB ONE ×2 (03:45→15:45)
[2017-01-01] MEDS: PIPERACIL-TAZO 4.5 GM PREMIX 100 ML IV SCH ×4 (04:07→22:20)
[2017-01-01] MEDS: VANCOMYCIN INJ 1,250 MG in SODIUM CHLOR 0.9% 250 ML INJ 250 ML IV SCH (04:08)
[2017-01-01] MEDS: HYDROmorphone HCL PF 1 MG/ML VIAL IV PUSH PRN (04:58)
[2017-01-01] MEDS: LEVOTHYROXINE SODIUM 75 MCG TAB PO SCH (06:50)
[2017-01-01 07:01] LABS: POTASSIUM 3.7 MEQ/L (3.5-5.1)
[2017-01-01 07:08] LABS: VANCOMYCIN TROUGH 26.8 MCG/ML (5.0-10.0)
--- NOTE | 2017-01-01 07:18 | HHI.PR ---
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 has on and off mild abdominal discomfort. no nausea or vomiting. afebrile. d/w the RN and no acute issues over night. calorie count in process. Objective Vitals Vital Signs Date Time Temp Pulse Resp B/P (MAP) Pulse Ox O2 Delivery O2 Flow Rate FiO2 01/01/17 06:00 86 01/01/17 05:00 94 01/01/17 04:00 97 Nasal Cannula 2.00 Call Center Director 01/01/17 04:00 97.6 96 20 131/77 (95) 97 01/01/17 04:00 94 01/01/17 02:00 81 01/01/17 00:00 98.4 92 15 122/56 (78) 92 01/01/17 00:00 92 12/31/16 22:00 96 12/31/16 20:00 98.3 100 26 127/58 (81) 97 12/31/16 20:00 100 12/31/16 19:20 98 Nasal Cannula 4.00 12/31/16 19:00 96 Nasal Cannula 6.00 Call Center Director 12/31/16 18:00 93 12/31/16 18:00 93 18 126/60 (82) 95 12/31/16 17:00 95 20 122/56 (78) 93 12/31/16 17:00 95 12/31/16 16:00 100 12/31/16 16:00 98.5 100 19 120/58 (78) 93 12/31/16 15:00 101 19 142/65 (90) 94 12/31/16 14:00 97 32 131/60 (83) 95 12/31/16 14:00 97 12/31/16 13:00 97 30 125/61 (82) 95 12/31/16 13:00 97 12/31/16 12:00 97.8 93 25 116/58 (77) 93 12/31/16 12:00 93 12/31/16 11:30 93 Nasal Cannula 5.00 12/31/16 11:00 94 12/31/16 11:00 94 20 130/61 (84) 96 12/31/16 10:00 95 26 129/60 (83) 81 12/31/16 10:00 96 Nasal Cannula 6.00 Call Center Director 12/31/16 10:00 95 12/31/16 09:00 100 12/31/16 09:00 100 34 122/62 (82) 71 12/31/16 08:30 86 12/31/16 08:30 86 15 96/49 (65) 95 12/31/16 08:00 97.6 84 14 102/51 (68) 100 12/31/16 08:00 84 12/31/16 07:56 95 High Flow Nasal Cannula 15.00 35 I/O 12/31/16 12/31/16 12/31/16 01/01/17 01/01/17 01/01/17 07:00 15:00 23:00 07:00 15:00 23:00 Intake Total 1010 ml 200 ml 1939 ml 915 ml Output Total 500 ml 1700 ml 2800 ml Balance 510 ml 200 ml 239 ml -1885 ml Intake Oral 560 ml 140 ml IV Total 600 ml 200 ml 1040 ml 675 ml TPN/PPN 260 ml 226 ml 80 ml Lipid 150 ml 113 ml 20 ml Output Urine Total 500 ml 1700 ml 2800 ml # Bowel Movements 0 0 Result Diagram: 12/30/16 1041 01/01/17 0415 Imaging Last Impressions Chest X-Ray 12/31/16 0600 Signed Impressions: Service Date/Time: Saturday, December 31, 2016 03:51 - CONCLUSION: Esophageal stent in good position. Minimal consolidation left lower lobe with a pleural effusion. Niranjan Cardenas MD CT Angiography 12/29/16 0000 Signed Impressions: Service Date/Time: December 01:02 - CONCLUSION: 1. Negative for pulmonary embolus. 2. Esophageal stent present with abnormal soft tissue in the mediastinum around the esophageal stent. 3. Stable 2.3 cm nodule upper left lung. 4. Development of bilateral pleural effusions, left greater than right with partial loculation on the left side and compressive atelectasis in both lungs. Tio Espinoza MD GI Procedure 12/24/16 1119 Signed Impressions: Service Date/Time: Saturday, December 24, 2016 11:24 - CONCLUSION: 1. Esophageal stent in excellent position. Clifford Machado MD [facility] 12/23/16 0000 Signed Impressions: Service Date/Time: December 09:22 - CONCLUSION: 1. No evidence of fistula or obstruction. 2. Small diverticulum along the distal esophagus. Louie Conrad MD Abdomen/Pelvis CT 12/10/16 0000 Signed Impressions: Service Date/Time: Saturday, December 10, 2016 20:17 - CONCLUSION: 1. Focal thickening of the left rectus muscle with sinus tract extending from the lumen of the stomach into the rectus, presumably at site of prior percutaneous gastrostomy. 2. Moderate-sized left pleural effusion. No evidence of ascites. 3. 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 4. Sigmoid diverticulosis without radiographic evidence of diverticulitis. Armando Harrington MD Objective Remarks GENERAL: This is a well-nourished, well-developed patient, in no apparent distress. CARDIOVASCULAR: Regular rate and regular rhythm without murmurs, gallops, or rubs. RESPIRATORY: Clear to auscultation. Breath sounds equal bilaterally. No wheezes , rales, or rhonchi. GASTROINTESTINAL: Abdomen soft, non-tender, nondistended. Normal, active bowel sounds MUSCULOSKELETAL: Extremities without clubbing, cyanosis, or edema. NEURO: Alert & Oriented x4 to person, place, time, situation. Moves all ext x4 Procedures EGD with clip placement EGD with esophageal stent placement and PEG placement Medications and IVs Current Medications Sodium Chloride 1,000 ml @ 125 mls/hr Q8H IV Last administered on 12/10/16 13: 15; Start 12/10/16 at 12:31; Stop 12/10/16 at 15:12; Status DC Clindamycin Phosphate 600 mg/ Sodium Chloride 104 ml @ 208 mls/hr ONCE ONCE IV Last administered on 12/10/16 13:14; Start 12/10/16 at 12:45; Stop 12/10/16 at 13:14; Status DC Hydromorphone HCl (Dilaudid Pf Inj) 0.5 mg ONCE ONCE IV PUSH Last administered on 12/10/16 13:50; Start 12/10/16 at 13:30; Stop 12/10/16 at 13:31; Status DC Sodium Chloride 1,000 ml @ 100 mls/hr Q10H IV Last administered on 12/11/16 05 :08; Start 12/10/16 at 15:00; Stop 12/11/16 at 10:29; Status DC Sodium Chloride (NS Flush) 2 ml BID IV FLUSH Last administered on 12/31/16 21: 15; Start 12/10/16 at 21:00 Potassium Chloride 100 ml @ 50 mls/hr Q2H IV Last administered on 12/10/16 17: 59; Start 12/10/16 at 16:00; Stop 12/10/16 at 19:59; Status DC Hydromorphone HCl (Dilaudid Pf Inj) 0.5 mg Q4H PRN IV PUSH PAIN SCALE 5 TO 10 Last administered on 12/12/16 11:02; Start 12/10/16 at 15:45; Stop 12/12/16 at 12: 25; Status DC Piperacillin Sod/ Tazobactam Sod 100 ml @ 200 mls/hr Q8H IV Last administered on 12/13/16 08:58; Start 12/10/16 at 17:00; Stop 12/13/16 at 16:51; Status DC Vancomycin HCl 1000 mg/Sodium Chloride 250 ml @ 250 mls/hr ONCE ONCE IV ; Start 12/10/16 at 16:00; Stop 12/10/16 at 16:00; Status DC Pharmacy Profile Note 0 ml @ 0 mls/hr UNSCH OTHER ; Start 12/10/16 at 15:45; Stop 12/13/16 at 16:51; Status DC Vancomycin HCl 750 mg/Sodium Chloride 257.5 ml @ 250 mls/hr Q24H IV Last administered on 12/12/16 17:13; Start 12/10/16 at 17:00; Stop 12/13/16 at 16:51; Status DC Miscellaneous Information SPECIFIC LAB TO BE ERON... ONCE ONCE .XX ; Start at 16:45; Stop 12/13/16 at 16:46; Status DC Fluconazole/ Sodium Chloride 50 ml @ 50 mls/hr Q24H IV Last administered on 12/12 20:13; Start 12/10/16 at 20:00; Stop 12/13/16 at 16:51; Status DC Iohexol (Omnipaque 350 Inj) 96 ml STK-MED ONCE IV Last administered on 20:21; Start 12/10/16 at 20:21; Stop 12/10/16 at 20:22; Status DC Enoxaparin Sodium (Lovenox Inj) 40 mg Q24H SQ Last administered on 12/31/16 21 :13; Start 12/10/16 at 22:45; Status Future hold Amitriptyline HCl (Elavil) 25 mg HS PO Last administered on 12/31/16 21:12; Start 12/11/16 at 21:00 Levothyroxine Sodium (Synthroid) 75 mcg DAILY@07 PO Last administered on 06:50; Start 12/11/16 at 07:00 Lisinopril (Prinivil) 10 mg DAILY PO Last administered on 12/31/16 09:05; Start 12/11/16 at 09:00 Hydromorphone HCl (Dilaudid Pf Inj) 0.5 mg ONCE ONCE IV PUSH Last administered on 12/11/16 00:23; Start 12/10/16 at 23:45; Stop 12/10/16 at 23:46; Status DC Potassium Bicarb/ Potassium Chloride (K-Lyte Cl Eff) 50 meq ONCE ONCE PO ; Start 12/11/16 at 09:15; Stop 12/11/16 at 11:37; Status DC Dextrose/Sodium Chloride 1,000 ml @ 84 mls/hr [id number] IV Last administered on 12/26/16 08:23; Start 12/11/16 at 10:30; Stop 12/26/16 at 15:08; Status DC Potassium Chloride 100 ml @ 50 mls/hr Q2H IV Last administered on 12/11/16 15: 33; Start 12/11/16 at 12:00; Stop 12/11/16 at 15:59; Status DC Multivitamins 10 ml/Folic Acid 1 mg/Amino Acids/ Electrolytes/ Dextrose 1,010.2 ml @ 50 mls/hr [id number] IV-CENTRAL Last administered on 12/12/16 18:47; Start 12/11/16 at 20:00; Stop 12/13/16 at 10:36; Status DC Fat Emulsion Intravenous 250 ml @ 10 mls/hr Q24H IV-CENTRAL Last administered on 12/30/16 21:02; Start 12/11/16 at 20:00; Stop 12/31/16 at 15:38; Status DC Ondansetron HCl (Zofran Inj) 4 mg Q6HR PRN IV PUSH N/V Last administered on 17:22; Start 12/11/16 at 16:15; Stop 12/24/16 at 18:00; Status DC Hydromorphone HCl (Dilaudid Pf Inj) 0.5 mg ONCE ONCE IV PUSH Last administered on 12/11/16 23:30; Start 12/11/16 at 20:00; Stop 12/11/16 at 20:01; Status DC Hydromorphone HCl (Dilaudid Pf Inj) 1 mg Q3H PRN IV PUSH PAIN SCALE 5 TO 10 Last administered on 01/01/17 04:58; Start 12/12/16 at 14:45 Multivitamins 10 ml/Folic Acid 1 mg/Amino Acids/ Electrolytes/ Dextrose 2,010.2 ml @ 40 mls/hr Q24H IV Last administered on 12/28/16 20:46; Start 12/13/16 at 20:00; Stop 12/29/16 at 19:59; Status DC Hydromorphone HCl (Dilaudid Pf Inj) 1.5 mg ONCE ONCE IV PUSH Last administered on 12/14/16 23:18; Start 12/14/16 at 22:45; Stop 12/14/16 at 22:46; Status DC Potassium Chloride 100 ml @ 50 mls/hr Q2H IV Last administered on 12/15/16 04: 37; Start 12/15/16 at 01:15; Stop 12/15/16 at 05:14; Status DC Potassium Chloride (KCl) 40 meq ONCE ONCE PO ; Start 12/15/16 at 01:15; Stop 12/15/16 at 01:50; Status DC Potassium Bicarb/ Potassium Chloride (K-Lyte Cl Eff) 50 meq ONCE ONCE PO Last administered on 12/15/16 01:58; Start 12/15/16 at 02:00; Stop 12/15/16 at 02: 01; Status DC Magnesium Sulfate/ Dextrose 100 ml @ 100 mls/hr ONCE ONCE IV Last administered on 12/15/16 10:55; Start 12/15/16 at 09:00; Stop 12/15/16 at 09:59; Status DC Fentanyl (Duragesic 25 Mcg Patch.72 Hr) 1 patch Q3D T-DERMAL Last administered on 12/18/16 12:16; Start 12/15/16 at 12:00; Stop 12/20/16 at 17:53 ; Status DC Miscellaneous Information 1 Q3D T-DERMAL Last administered on 12/18/16 12:00; Start 12/18/16 at 12:00; Stop 12/20/16 at 17:53; Status DC Heparin Sodium (Porcine) (Heparin Central Flush) 200 units ONCE ONCE IV FLUSH Last administered on 12/16/16 09:42; Start 12/16/16 at 09:15; Stop 12/16/16 at 09:21; Status DC Potassium Chloride (KCl) 40 meq ONCE ONCE PO Last administered on 12/16/16 17 :47; Start 12/16/16 at 17:00; Stop 12/16/16 at 17:01; Status DC Potassium Chloride 100 ml @ 100 mls/hr Q1H IV Last administered on 12/17/16 00:46; Start 12/16/16 at 22:15; Stop 12/17/16 at 01:14; Status DC Lactated Ringer's 1,000 ml @ 30 mls/hr Q24H PRN IV SEE LABEL COMMENTS; Start at 02:30; Stop 12/20/16 at 02:29; Status DC Povidone Iodine (Betadine 5% Antisepsis Kit) 1 applic TOWEL FOLDER PRN EACH NARE SEE LABEL COMMENTS; Start 12/17/16 at 02:30; Stop 12/20/16 at 02:29; Status DC Chlorhexidine Gluconate (Chlorhexidine 2% Cloth) 3 pack TOWEL FOLDER PRN TOPICAL SEE LABEL COMMENTS; Start 12/17/16 at 02:30; Stop 12/20/16 at 02:29; Status DC Insulin Human Regular (NovoLIN R INJ) See Protocol Table ... TOWEL FOLDER PRN SQ SEE PROTOCOL TABLE; Start 12/17/16 at 02:30; Stop 12/20/16 at 02:29; Status DC Silver Nitrate/ Potassium Nitrate (Silver Nitrate Applicators) 4 appl STK-MED ONCE TOPICAL Last administered on 12/17/16 15:19; Start 12/17/16 at 15:19; Stop 12/17/16 at 17:45; Status DC Propofol (Diprivan 200 Mg/20 ml Inj) 320 mg STK-MED ONCE IV ; Start 12/17/16 at 15:19; Stop 12/17/16 at 17:48; Status DC Potassium Chloride 100 ml @ 50 mls/hr Q2H IV Last administered on 12/18/16 12 :16; Start 12/18/16 at 09:00; Stop 12/18/16 at 12:59; Status DC Lidocaine/ Diphenhydr/Alum/ Mg/Simeth (Magic Mouthwash Pediatric/Adult Liq) 5 ml ACHS SWISH-SWAL Last administered on 12/23/16 21:49; Start 12/19/16 at 16: 00; Stop 12/24/16 at 17:59; Status DC Nystatin (Mycostatin Liq) 5 ml QID SWISH-SWAL Last administered on 12/31/16 21:14; Start 12/19/16 at 18:00 Potassium Chloride 100 ml @ 50 mls/hr Q2H IV Last administered on 12/20/16 17 :33; Start 12/20/16 at 08:30; Stop 12/20/16 at 12:29; Status DC Magnesium Sulfate/ Dextrose 100 ml @ 100 mls/hr ONCE ONCE IV Last administered on 12/20/16 10:02; Start 12/20/16 at 08:30; Stop 12/20/16 at 09:29 ; Status DC Ipratropium [place] (Atrovent Neb) 0.5 mg Q4HR NEB NEB Last administered on 16:03; Start 12/20/16 at 20:00; Stop 12/29/16 at 21:07; Status DC Guaifenesin (Mucinex Er) 600 mg BID PO Last administered on 12/20/16 22:00; Start 12/20/16 at 21:00; Stop 12/21/16 at 09:45; Status DC Venlafaxine HCl (Effexor) 25 mg DAILY PO Last administered on 12/20/16 19:21; Start 12/20/16 at 18:00; Stop 12/21/16 at 18:01; Status DC Fentanyl (Duragesic 50 Mcg Patch.72 Hr) 1 patch Q3D T-DERMAL Last administered on 12/20/16 19:19; Start 12/20/16 at 18:00; Stop 12/24/16 at 17:59 ; Status DC Miscellaneous Information 1 Q3D T-DERMAL Last administered on 12/26/16 18:00; Start 12/20/16 at 18:00 Magnesium Sulfate/ Dextrose 100 ml @ 100 mls/hr Q1H IV Last administered on 11:17; Start 12/21/16 at 09:45; Stop 12/21/16 at 11:44; Status DC Potassium Chloride 100 ml @ 50 mls/hr Q2H IV ; Start 12/21/16 at 09:45; Stop at 13:44; Status Cancel Guaifenesin (Robitussin Liq) 600 mg BID PO Last administered on 12/30/16 21:00 ; Start 12/21/16 at 09:45 Magnesium Sulfate/ Dextrose 100 ml @ 100 mls/hr Q1H IV Last administered on 14:55; Start 12/21/16 at 14:45; Stop 12/21/16 at 15:44; Status DC Potassium Chloride 100 ml @ 50 mls/hr Q2H IV Last administered on 12/21/16 20 :32; Start 12/21/16 at 17:00; Stop 12/21/16 at 20:59; Status DC Sodium Chloride 250 ml @ 15 mls/hr ONCE ONCE IV Last administered on 13:17; Start 12/22/16 at 08:45; Stop 12/23/16 at 01:24; Status DC Acetaminophen (Tylenol) 650 mg Q4H PRN PO SEE LABEL COMMENTS; Start 12/22/16 at 08:45; Stop 12/22/16 at 12:46; Status DC Diphenhydramine HCl (Benadryl) 25 mg Q4H PRN PO SEE LABEL COMMENTS; Start 12/22 at 08:45; Stop 12/22/16 at 12:46; Status DC Furosemide (Lasix Inj) 20 mg ONCE ONCE IV Last administered on 12/22/16 16:31 ; Start 12/22/16 at 08:45; Stop 12/22/16 at 08:46; Status DC Acetaminophen (Tylenol) 650 mg Q4H PRN PO SEE LABEL COMMENTS Last administered on 12/22/16 13:59; Start 12/22/16 at 14:00; Stop 12/22/16 at 18:01; Status DC Diphenhydramine HCl (Benadryl) 25 mg Q4H PRN PO SEE LABEL COMMENTS Last administered on 12/22/16 17:18; Start 12/22/16 at 14:00; Stop 12/22/16 at 18:01 ; Status DC Patient Own Medication PT OWN MED: TRANXENE-T (CLORAZEPA... TID PO Last administered on 12/31/16 18:00; Start 12/23/16 at 13:00; Status Future hold Diatrizoate Meglum/ Diatrizoate Sod ( Gastrodina Liq) 240 ml STK-MED ONCE PO Last administered on 12/23/16 09:45; Start 12/23/16 at 09:45; Stop 12/23/16 at 10:14; Status DC Iron Sucrose 200 mg/Sodium Chloride 110 ml @ 110 mls/hr DAILY IV Last administered on 12/26/16 08:23; Start 12/24/16 at 09:00; Stop 12/26/16 at 09:59 ; Status DC Lactated Ringer's 1,000 ml @ 30 mls/hr Q24H PRN IV SEE LABEL COMMENTS; Start at 03:30; Stop 12/27/16 at 03:29; Status DC Sodium Chloride 500 ml @ 30 mls/hr [id number] PRN IV SEE LABEL COMMENTS; Start at 03:30; Stop 12/27/16 at 03:29; Status DC Morphine Sulfate (*morphine INJ PERIprocedure ONLY) 8 mg STK-MED ONCE .ROUTE Last administered on 12/24/16 12:29; Start 12/24/16 at 12:29; Stop 12/24/16 at 12:30; Status DC Pantoprazole Sodium (Protonix) 40 mg Q12HR PO Last administered on 12/31/16 21 :12; Start 12/24/16 at 12:45 Miscellaneous Information ALL NURSING DEPARTME... UNSCH PRN .XX SEE LABEL COMMENTS; Start 12/24/16 at 13:45; Stop 12/25/16 at 13:44; Status DC Propofol (Diprivan 200 Mg/20 ml Inj) 300 mg STK-MED ONCE IV ; Start 12/24/16 at 11:40; Stop 12/24/16 at 15:16; Status DC Ondansetron HCl (Zofran Inj) 4 mg Q4HR PRN IV PUSH N/V Last administered on 21:12; Start 12/24/16 at 18:00 Potassium Chloride 100 ml @ 100 mls/hr Q1H IV ; Start 12/25/16 at 10:30; Stop 12/25/16 at 13:29; Status DC Magnesium Sulfate/ Dextrose 100 ml @ 100 mls/hr ONCE ONCE IV Last administered on 12/25/16 11:16; Start 12/25/16 at 10:30; Stop 12/25/16 at 11:29 ; Status DC Morphine Sulfate (Oramorph Sr) 30 mg Q12HR PO Last administered on 12/28/16 08 :21; Start 12/26/16 at 21:00; Stop 12/28/16 at 14:20; Status DC Acetaminophen (Tylenol) 650 mg ONCE ONCE PO Last administered on 12/28/16 02: 12; Start 12/27/16 at 22:30; Stop 12/27/16 at 22:31; Status DC Diphenhydramine HCl (Benadryl) 25 mg ONCE ONCE PO Last administered on 02:12; Start 12/27/16 at 22:30; Stop 12/27/16 at 22:31; Status DC Multivitamins 10 ml/Folic Acid 1 mg/Amino Acids/ Electrolytes/ Dextrose 1,010.2 ml @ 40 mls/hr Q24H IV Last administered on 12/30/16 21:01; Start 12/29/16 at 20:00; Stop 12/31/16 at 15:38; Status DC Morphine Sulfate (Oramorph Sr) 15 mg BID PO Last administered on 12/31/16 21: 12; Start 12/28/16 at 21:00 Oxycodone HCl (Roxicodone) 5 mg Q6H PRN PO PAIN SCALE 1 TO 4; Start 12/28/16 at 14:30; Stop 12/28/16 at 14:30; Status DC Oxycodone HCl (Roxicodone) 5 mg Q4H PRN PO PAIN SCALE 1 TO 4 Last administered on 12/31/16 21:12; Start 12/28/16 at 14:30 Ipratropium [place] (Atrovent Neb) 0.5 mg Q6HR NEB NEB Last administered on 08:48; Start 12/29/16 at 22:00; Stop 12/30/16 at 13:09; Status DC Ipratropium [place] (Atrovent Neb) 0.5 mg Q2HR NEB PRN NEB wheezing; Start at 21:15; Stop 12/30/16 at 13:09; Status DC Methylprednisolone Sodium Succinate (SoluMEDROL INJ) 125 mg ONCE ONCE IV PUSH Last administered on 12/29/16 22:06; Start 12/29/16 at 22:00; Stop 12/29/16 at 22:01; Status DC Bumetanide (Bumex Inj) 1 mg ONCE ONCE IV PUSH Last administered on 12/29/16 22:07; Start 12/29/16 at 22:00; Stop 12/29/16 at 22:01; Status DC Enoxaparin Sodium (Lovenox Inj) 70 mg ONCE ONCE SQ Last administered on 22:11; Start 12/29/16 at 22:15; Stop 12/29/16 at 22:16; Status DC Iohexol (Omnipaque 350 Inj) 74 ml STK-MED ONCE IVCONTRAST Last administered on 12/30/16 01:17; Start 12/30/16 at 01:17; Stop 12/30/16 at 01:18; Status DC Piperacillin Sod/ Tazobactam Sod 100 ml @ 200 mls/hr Q6H IV Last administered on 01/01/17 04:07; Start 12/30/16 at 03:00 Pharmacy Profile Note 0 ml @ 0 mls/hr UNSCH OTHER ; Start 12/30/16 at 02:30 Vancomycin HCl 1000 mg/Sodium Chloride 250 ml @ 250 mls/hr ONCE ONCE IV Last administered on 12/30/16 03:40; Start 12/30/16 at 02:30; Stop 12/30/16 at 03:29 ; Status DC Vancomycin HCl 1250 mg/Sodium Chloride 262.5 ml @ 250 mls/hr Q12H IV Last administered on 01/01/17 04:08; Start 12/30/16 at 16:00 Miscellaneous Information SPECIFIC LAB TO BE DRAWN:VANCOMYCIN TROUGH DATE TO... ONCE ONCE .XX ; Start 01/01/17 at 03:45; Stop 01/01/17 at 03:46; Status DC Furosemide (Lasix Inj) 40 mg Q8H IV PUSH Last administered on 12/31/16 05:19; Start 12/30/16 at 14:00; Stop 12/31/16 at 06:01; Status DC Magnesium Oxide (Mag-Ox) 800 mg UNSCH PRN PO For Magnesium 1.2 - 1.6 mg/dL; Start 12/30/16 at 12:15 Magnesium Sulfate 4 gm/Sodium Chloride 100 ml @ 50 mls/hr UNSCH PRN IV For Magnesium 0.9 - 1.1 mg/dL; Start 12/30/16 at 12:15 Magnesium Sulfate 2 gm/Sodium Chloride 100 ml @ 50 mls/hr UNSCH PRN IV For Magnesium 1.2 - 1.6 mg/dL; Start 12/30/16 at 12:15 Potassium Chloride 100 ml @ 50 mls/hr Q2H PRN IV For Potassium 2.8 - 3.2 mEq/ L Last administered on 12/31/16 17:12; Start 12/30/16 at 12:15 Potassium Chloride 100 ml @ 50 mls/hr Q2H PRN IV For Potassium 3.3 - 3.5 mEq/ L Last administered on 12/30/16 14:36; Start 12/30/16 at 12:15 Potassium Chloride 100 ml @ 50 mls/hr Q2H PRN IV For Potassium 2.8 - 3.2 mEq/L ; Start 12/30/16 at 12:15 Potassium Chloride 100 ml @ 25 mls/hr UNSCH PRN IV For Potassium 3.3 - 3.5 mEq /L; Start 12/30/16 at 12:15 Potassium Phosphate (K-Phos) 2,000 mg Q4H PRN PO For Phosphorus < 2.5 mg/dL; Start 12/30/16 at 12:15 Potassium Phosphate (K-Phos) 2,000 mg UNSCH PRN PO/TUBE SEE LABEL COMMENTS; Start 12/30/16 at 12:15 Potassium Phosphate 30 mmol/ Sodium Chloride 260 ml @ 42 mls/hr UNSCH PRN IV SEE LABEL COMMENTS; Start 12/30/16 at 12:15 Sodium Phosphate 30 mmol/Sodium Chloride 250 ml @ 42 mls/hr UNSCH PRN IV For Phosphorus < 2.5 mg/dL; Start 12/30/16 at 12:15 Acetazolamide Sodium (Diamox Inj) 500 mg ONCE ONCE IV PUSH Last administered on 12/30/16 14:30; Start 12/30/16 at 14:00; Stop 12/30/16 at 14:01; Status DC Methylprednisolone Sodium Succinate (SoluMEDROL INJ) 60 mg Q12HR IV PUSH Last administered on 12/31/16 21:13; Start 12/30/16 at 21:00 Albuterol/ Ipratropium (Duoneb Neb) 1 ampule Q2HR NEB PRN INH WHEEZING; Start 12/30/16 at 12:15 Albuterol/ Ipratropium (Duoneb Neb) 1 ampule Q4HR NEB INH Last administered on 12/31/16 15:00; Start 12/30/16 at 16:00 Furosemide (Lasix Inj) 20 mg DAILY IV PUSH Last administered on 12/31/16 23:17 ; Start 12/31/16 at 22:45 A/P Assessment and Plan A/P Respiratory distress- resolved. Acute hypoxemia- resolved. Probable volume overload/pulmonary edema- resolving. - CTA negative for PE. - continue abx until cultures result. - continue lasix. COPD exacerbation - steroids and nebs -will taper down IV steroid. - aggressive pulmonary toilet. 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 - Further management per GI Esophageal stricture - Post- radiation -s/p EGD with stent placement - started on diet- TPN as noted above -GI following. bacteremia with staph epidermidis -antibiotics per ID -follow the repeated blood cultures. -ID following. Non-small cell lung cancer - management by Oncology Hypothyroidism - Levothyroxine Hypertension - Lisinopril Anemia - Of chronic disease - Monitor H&H and transfuse for hemoglobin less than 7 DVT/ GI prophylaxis - Teds SCDs - Lovenox - Pantoprazole palliative care following. consult PT. Nakita Lopez MD Jan 01, 2017 07:18
[2017-01-01] MEDS: [UNRECOGNIZED DRUG - OTHER] PO SCH ×3 (09:00→18:00)
[2017-01-01] MEDS: CLORAZEPATE PO SCH ×3 (09:00→18:00)
[2017-01-01] MEDS: guaiFENesin SOLUTION 200 MG/10 ML CUP PO SCH ×2 (09:00→21:00)
[2017-01-01] MEDS: SODIUM CHLORIDE 0.9% FLUSH 10 ML FLUSH IV FLUSH SCH ×2 (09:04→21:58)
[2017-01-01] MEDS: PANTOPRAZOLE SOD 40 MG DELAYED RELEASE TAB PO SCH ×2 (09:04→21:57)
[2017-01-01] MEDS: LISINOPRIL 10 MG TAB PO SCH (09:04)
[2017-01-01] MEDS: NYSTATIN SUSP 500,000 U/5 ML CUP SWISH-SWAL SCH ×3 (09:04→21:00)
[2017-01-01] MEDS: FUROSEMIDE 20 MG/2 ML VIAL IV PUSH SCH (09:05)
[2017-01-01] MEDS: methylPREDNISolone SOD SUCC 40 MG/1 ML VIAL IV PUSH SCH ×2 (09:05→21:58)
[2017-01-01] MEDS: MORPHINE SULFATE 15 MG CONTROLLED RELEASE TAB PO SCH ×2 (09:20→21:57)
[2017-01-01] MEDS: REMOVE OLD DURAGESIC (FENTANYL) PATCH T-DERMAL SCH (18:00)
[2017-01-01] MEDS: ONDANSETRON HCL 4 MG/2 ML VIAL IV PUSH PRN (19:26)
[2017-01-01] MEDS: ENOXAPARIN SODIUM 40 MG/0.4 ML SYRINGE SQ SCH (21:55)
[2017-01-01] MEDS: AMITRIPTYLINE HCL 25 MG TAB PO SCH (21:57)
[2017-01-02] VITALS (24 sets, daily range): BP systolic 130–148; BP diastolic 66–79; PULSE 80–102; RESP 16–20; TEMP 97.8–98.4; O2SAT 92–98
[2017-01-02] MEDS: RESP: ALBUTEROL 2.5 MG/IPRATROPIUM 0.5 MG NEB (SCH) INH ×4 (00:55→15:35)
[2017-01-02] MEDS: PIPERACIL-TAZO 4.5 GM PREMIX 100 ML IV SCH ×4 (03:35→21:55)
[2017-01-02] MEDS ORDERED: IMPLANTED VASCULAR ACCESS PORT - SODIUM CHLORIDE FLUSH PRN IV FLUSH (05:00)
[2017-01-02] MEDS ORDERED: IMPLANTED VASCULAR ACCESS PORT - SODIUM CHLORIDE FLUSH IV FLUSH SCH (05:00)
[2017-01-02] MEDS: LEVOTHYROXINE SODIUM 75 MCG TAB PO SCH (05:55)
[2017-01-02 06:54] LABS: AUTOMATED NEUTROPHIL # 8.1 TH/MM3 (1.8-7.7); BASOPHIL % 0.1 % (0.0-2.0); EOSINOPHIL % 0.1 % (0.0-4.0); HEMATOCRIT 33.3 % (35.0-46.0); HEMO FLAGS DIFF FINAL; LYMPH % 11.2 % (9.0-44.0); LYMPHOCYTE # 1.1 TH/MM3 (1.0-4.8); MEAN CELL VOLUME 86.8 FL (80.0-100.0); MEAN CORPUSCULAR HEMOGLOBIN 27.7 PG (27.0-34.0); MEAN CORPUSCULAR HGB CONC 31.9 % (32.0-36.0); MONO % 3.4 % (0.0-8.0); NEUT % 85.2 % (16.0-70.0); PLATELET COUNT 247 TH/MM3 (150-450); RED BLOOD COUNT 3.84 MIL/MM3 (4.00-5.30); RED CELL DISTRIBUTION WIDTH 21.7 % (11.6-17.2); WHITE BLOOD COUNT 9.5 TH/MM3 (4.0-11.0)
[2017-01-02 07:41] LABS: BICARBONATE 28.4 MEQ/L (21.0-32.0); POTASSIUM 4.1 MEQ/L (3.5-5.1)
[2017-01-02] MEDS: CLORAZEPATE PO SCH ×3 (09:00→18:41)
[2017-01-02] MEDS: [UNRECOGNIZED DRUG - OTHER] PO SCH ×3 (09:00→18:41)
[2017-01-02] MEDS: SODIUM CHLORIDE 0.9% FLUSH 10 ML FLUSH IV FLUSH SCH ×2 (09:00→21:55)
[2017-01-02] MEDS: MORPHINE SULFATE 15 MG CONTROLLED RELEASE TAB PO SCH ×2 (09:00→21:53)
[2017-01-02] MEDS: guaiFENesin SOLUTION 200 MG/10 ML CUP PO SCH ×2 (09:00→21:00)
--- NOTE | 2017-01-02 09:35 | HHI.PR ---
Subjective Remarks Follow up for respiratory failure/abdominal wall fistula as well as bacteremia. She is doing well. No fever, chills. She is tolerating diet well. PEG tube site is draining some. Objective Vitals Vital Signs Date Time Temp Pulse Resp B/P (MAP) Pulse Ox O2 Delivery O2 Flow Rate FiO2 01/02/17 06:00 87 01/02/17 05:10 81 01/02/17 04:00 84 01/02/17 04:00 97.8 89 18 139/68 (91) 94 01/02/17 03:00 87 01/02/17 03:00 94 Nasal Cannula 3.00 01/02/17 02:00 102 01/02/17 01:00 82 01/02/17 00:00 102 01/02/17 00:00 98.4 80 18 148/74 (98) 96 01/01/17 23:02 16 01/01/17 23:02 16 01/01/17 23:00 84 01/01/17 23:00 96 Nasal Cannula 3.00 01/01/17 22:00 92 01/01/17 21:00 92 01/01/17 20:00 97.5 93 18 146/74 (98) 98 01/01/17 20:00 92 01/01/17 19:00 98 Nasal Cannula 3.00 01/01/17 19:00 94 01/01/17 18:00 89 01/01/17 16:00 96 01/01/17 16:00 97.6 97 22 113/51 (71) 95 01/01/17 15:00 96 01/01/17 14:00 100 01/01/17 13:00 94 01/01/17 12:00 97.7 98 20 106/50 (68) 94 01/01/17 12:00 96 01/01/17 11:00 92 01/01/17 10:00 96 01/01/17 09:40 Nasal Cannula 4.00 I/O 01/01/17 01/01/17 01/01/17 01/02/17 01/02/17 01/02/17 07:00 15:00 23:00 07:00 15:00 23:00 Intake Total 915 ml 390 ml 680 ml Output Total 2800 ml 2200 ml 625 ml Balance -1885 ml -1810 ml 55 ml Intake Oral 140 ml 390 ml 480 ml IV Total 675 ml 200 ml TPN/PPN 80 ml Lipid 20 ml Output Urine Total 2800 ml 2200 ml 625 ml # Bowel Movements 0 1 1 Result Diagram: 01/02/17 0603 01/02/17 0603 Imaging Last Impressions Chest X-Ray 12/31/16 0600 Signed Impressions: Service Date/Time: Saturday, December 31, 2016 03:51 - CONCLUSION: Esophageal stent in good position. Minimal consolidation left lower lobe with a pleural effusion. Niranjan Cardenas MD CT Angiography 12/29/16 0000 Signed Impressions: Service Date/Time: December 01:02 - CONCLUSION: 1. Negative for pulmonary embolus. 2. Esophageal stent present with abnormal soft tissue in the mediastinum around the esophageal stent. 3. Stable 2.3 cm nodule upper left lung. 4. Development of bilateral pleural effusions, left greater than right with partial loculation on the left side and compressive atelectasis in both lungs. Tio Espinoza MD GI Procedure 12/24/16 1119 Signed Impressions: Service Date/Time: Saturday, December 24, 2016 11:24 - CONCLUSION: 1. Esophageal stent in excellent position. Clifford Machado MD Upper GI Series 12/23/16 0000 Signed Impressions: Service Date/Time: December 09:22 - CONCLUSION: 1. No evidence of fistula or obstruction. 2. Small diverticulum along the distal esophagus. Louie Conrad MD Abdomen/Pelvis CT 12/10/16 0000 Signed Impressions: Service Date/Time: Saturday, December 10, 2016 20:17 - CONCLUSION: 1. Focal thickening of the left rectus muscle with sinus tract extending from the lumen of the stomach into the rectus, presumably at site of prior percutaneous gastrostomy. 2. Moderate-sized left pleural effusion. No evidence of ascites. 3. 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 4. Sigmoid diverticulosis without radiographic evidence of diverticulitis. Armando Harrington MD Objective Remarks GENERAL: AOx3, NAD. SKIN: Warm and dry. HEAD: Normocephalic. EYES: No scleral icterus. No injection or drainage. NECK: Supple, trachea midline. No JVD or lymphadenopathy. CARDIOVASCULAR: Regular rate and rhythm without murmurs, gallops, or rubs. RESPIRATORY: Breath sounds equal bilaterally. No accessory muscle use. GASTROINTESTINAL: Abdomen soft, non-tender, nondistended. PEG tube in place, there some some yellowish discharge, no erythema. MUSCULOSKELETAL: No cyanosis, or edema. BACK: Nontender without obvious deformity. No CVA tenderness. 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 Valdovinos is a 76 year old female with a history of NSCLC, radiation esophagitis presents to the ED due to complication of the PEG tube insertion site. PEG Tube was removed recently due to large leakage. 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 - Acute respiratory failure - hypoxic - Probable pulmonary edema - COPD exacerbation - Patient was under ICU service, improved with diuresis. - Maintain O2 via Nasal Cannula to keep O2 sat > 90%. - Continue IV steroid, DuoNeb. 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 - s/p esophageal stent placement by IR on 12/24/2016, PEG tube placement by GI on 12/24/2016. - Continue IV Dilaudid PRN. - Patient is off TPN and currently tolerating oral feeding well. - Gram positive Bacteremia - ID following. Patient is currently on Vancomycin and Zosyn. - Repeat Blood cultures from 12/31/2016 Negative so far. - If necessary, patient can use her port for IV abx at home. - History of Non-small cell lung cancer - s/p chemo, radiation therapy. - Hypokalemia - resolved. Required Potassium and magnesium replacements. - Hypothyroidism - continue Levothyroxine 75mcg Qday. - Hypertension - continue Lisinopril 10mg Qday. Full code. Lovenox. Discussed with RN. Discharge plan: When okay with ID, patient can likely go home with home health. Gamaliel Cruz DO Jan 02, 2017 09:35
[2017-01-02] MEDS: NYSTATIN SUSP 500,000 U/5 ML CUP SWISH-SWAL SCH ×4 (09:53→21:00)
[2017-01-02] MEDS: LISINOPRIL 10 MG TAB PO SCH (09:55)
[2017-01-02] MEDS: PANTOPRAZOLE SOD 40 MG DELAYED RELEASE TAB PO SCH ×2 (09:55→21:54)
[2017-01-02] MEDS: FUROSEMIDE 20 MG/2 ML VIAL IV PUSH SCH (09:57)
[2017-01-02] MEDS: methylPREDNISolone SOD SUCC 40 MG/1 ML VIAL IV PUSH SCH ×2 (09:58→21:54)
[2017-01-02] MEDS: VANCOMYCIN INJ 1,250 MG in SODIUM CHLOR 0.9% 250 ML INJ 250 ML IV SCH (10:17)
[2017-01-02] MEDS: ONDANSETRON HCL 4 MG/2 ML VIAL IV PUSH PRN (12:59)
--- NOTE | 2017-01-02 17:17 | HHI.PR ---
Addendum to Inpatient Note Additional Information Chart review documentation BCX with persistent GP bacteremia. Likely source Port. Will likely need removal of Port. Continue Zosyn IV for now. Continue Vanco IV(target 15-20) to resume care in am. Vital Signs Date Time Temp Pulse Resp B/P (MAP) Pulse Ox O2 Delivery O2 Flow Rate FiO2 01/02/17 16:00 96 16 130/78 (95) 94 01/02/17 12:00 94 20 134/79 (97) 94 01/02/17 07:40 92 Nasal Cannula 3.00 01/02/17 07:00 96 Nasal Cannula 3.00 01/02/17 06:00 87 01/02/17 05:10 81 01/02/17 04:00 84 01/02/17 04:00 97.8 89 18 139/68 (91) 94 01/02/17 03:00 87 01/02/17 03:00 94 Nasal Cannula 3.00 01/02/17 02:00 102 01/02/17 01:00 82 01/02/17 00:00 102 01/02/17 00:00 98.4 80 18 148/74 (98) 96 01/01/17 23:02 16 01/01/17 23:02 16 01/01/17 23:00 84 01/01/17 23:00 96 Nasal Cannula 3.00 01/01/17 22:00 92 01/01/17 21:00 92 01/01/17 20:00 97.5 93 18 146/74 (98) 98 01/01/17 20:00 92 01/01/17 19:00 98 Nasal Cannula 3.00 01/01/17 19:00 94 01/01/17 18:00 89 Laboratory Tests Test 01/02/17 06:03 White Blood Count 9.5 TH/MM3 Red Blood Count 3.84 MIL/MM3 Hemoglobin 10.6 GM/DL Hematocrit 33.3 % Mean Corpuscular Volume 86.8 FL Mean Corpuscular Hemoglobin 27.7 PG Mean Corpuscular Hemoglobin Concent 31.9 % Red Cell Distribution Width 21.7 % Platelet Count 247 TH/MM3 Mean Platelet Volume 9.1 FL Neutrophils (%) (Auto) 85.2 % Lymphocytes (%) (Auto) 11.2 % Monocytes (%) (Auto) 3.4 % Eosinophils (%) (Auto) 0.1 % Basophils (%) (Auto) 0.1 % Neutrophils # (Auto) 8.1 TH/MM3 Lymphocytes # (Auto) 1.1 TH/MM3 Monocytes # (Auto) 0.3 TH/MM3 Eosinophils # (Auto) 0.0 TH/MM3 Basophils # (Auto) 0.0 TH/MM3 CBC Comment DIFF FINAL Differential Comment Laboratory Tests Test 12/31/16 20:00 01/01/17 04:15 01/02/17 06:03 Potassium Level 4.1 MEQ/L 3.7 MEQ/L 4.1 MEQ/L Creatinine 0.59 MG/DL 0.73 MG/DL Estimat Glomerular Filtration Rate 99 ML/MIN 77 ML/MIN Blood Urea Nitrogen 31 MG/DL Random Glucose 89 MG/DL Calcium Level 8.4 MG/DL Sodium Level 140 MEQ/L Chloride Level 103 MEQ/L Carbon Dioxide Level 28.4 MEQ/L Anion Gap 9 MEQ/L Microbiology Date/Time Source Procedure Growth Status 12/31/16 12:27 Blood Peripheral Aerobic Blood Culture - Preliminary Gram Positive Cocci Resulted 12/31/16 12:27 Anaerobic Blood Culture - Preliminary Gram Positive Cocci Resulted 12/31/16 12:25 Blood Peripheral Aerobic Blood Culture - Preliminary Staph Sp Coagulase Negative Resulted 12/31/16 12:25 Blood Peripheral Anaerobic Blood Culture - Preliminary NO GROWTH IN 2 DAYS Resulted Kylah Camara MD Jan 02, 2017 17:17
[2017-01-02] MEDS: AMITRIPTYLINE HCL 25 MG TAB PO SCH (21:54)
[2017-01-02] MEDS: ENOXAPARIN SODIUM 40 MG/0.4 ML SYRINGE SQ SCH (21:55)
[2017-01-03] VITALS (25 sets, daily range): BP systolic 121–143; BP diastolic 53–74; PULSE 78–102; RESP 16–18; TEMP 97–98.8; O2SAT 94–99
[2017-01-03] MEDS: RESP: ALBUTEROL 2.5 MG/IPRATROPIUM 0.5 MG NEB (SCH) INH ×5 (02:15→11:56)
[2017-01-03] MEDS: PIPERACIL-TAZO 4.5 GM PREMIX 100 ML IV SCH ×2 (03:29→09:36)
[2017-01-03] MEDS: LEVOTHYROXINE SODIUM 75 MCG TAB PO SCH (06:08)
--- NOTE | 2017-01-03 08:46 | HHI.PR ---
Subjective Remarks Family very concerned about port being infected. We'll defer to infectious disease Have discussed with patient and RN and daughter Many questions answered for family and patient and RN DIScontinue Nicole catheter Objective Vitals Vital Signs Date Time Temp Pulse Resp B/P (MAP) Pulse Ox O2 Delivery O2 Flow Rate FiO2 01/03/17 08:24 98.3 88 18 121/65 (83) 96 01/03/17 06:00 81 01/03/17 05:00 92 01/03/17 04:00 98.0 91 16 126/65 (85) 96 01/03/17 04:00 94 01/03/17 03:03 84 01/03/17 03:00 96 Nasal Cannula 3.00 01/03/17 02:16 97 Nasal Cannula 3.00 01/03/17 02:00 83 01/03/17 01:00 80 01/03/17 01:00 16 01/03/17 00:00 98.8 96 18 143/74 (97) 96 01/03/17 00:00 78 01/02/17 23:03 14 01/02/17 23:00 96 Nasal Cannula 3.00 01/02/17 23:00 88 01/02/17 22:00 92 01/02/17 21:00 84 01/02/17 20:00 98.4 94 16 131/66 (87) 98 01/02/17 20:00 88 01/02/17 19:00 98 Nasal Cannula 3.00 01/02/17 19:00 96 01/02/17 17:00 98 01/02/17 16:00 96 16 130/78 (95) 94 01/02/17 16:00 94 Nasal Cannula 3.00 01/02/17 16:00 94 01/02/17 15:00 96 01/02/17 14:00 86 01/02/17 13:00 90 01/02/17 12:00 90 01/02/17 12:00 94 Nasal Cannula 3.00 01/02/17 12:00 94 20 134/79 (97) 94 01/02/17 11:00 96 01/02/17 10:00 90 01/02/17 09:00 90 I/O 01/02/17 01/02/17 01/02/17 01/03/17 01/03/17 01/03/17 07:00 15:00 23:00 07:00 15:00 23:00 Intake Total 680 ml 1500 ml 440 ml Output Total 625 ml 2200 ml 425 ml Balance 55 ml -700 ml 15 ml Intake Oral 480 ml 1050 ml 240 ml IV Total 200 ml 450 ml 200 ml Output Urine Total 625 ml 2200 ml 425 ml # Bowel Movements 1 2 1 Result Diagram: 01/02/17 0603 01/02/17 0603 Other Results Laboratory Tests Test 12/31/16 20:00 01/01/17 04:15 01/01/17 15:45 01/02/17 06:03 Potassium Level 4.1 MEQ/L 3.7 MEQ/L 4.1 MEQ/L Creatinine 0.59 MG/DL 0.73 MG/DL Estimat Glomerular Filtration Rate 99 ML/MIN 77 ML/MIN Vancomycin Level Trough 26.8 MCG/ML 32.0 MCG/ML White Blood Count 9.5 TH/MM3 Red Blood Count 3.84 MIL/MM3 Hemoglobin 10.6 GM/DL Hematocrit 33.3 % Mean Corpuscular Volume 86.8 FL Mean Corpuscular Hemoglobin 27.7 PG Mean Corpuscular Hemoglobin Concent 31.9 % Red Cell Distribution Width 21.7 % Platelet Count 247 TH/MM3 Mean Platelet Volume 9.1 FL Neutrophils (%) (Auto) 85.2 % Lymphocytes (%) (Auto) 11.2 % Monocytes (%) (Auto) 3.4 % Eosinophils (%) (Auto) 0.1 % Basophils (%) (Auto) 0.1 % Neutrophils # (Auto) 8.1 TH/MM3 Lymphocytes # (Auto) 1.1 TH/MM3 Monocytes # (Auto) 0.3 TH/MM3 Eosinophils # (Auto) 0.0 TH/MM3 Basophils # (Auto) 0.0 TH/MM3 CBC Comment DIFF FINAL Differential Comment Blood Urea Nitrogen 31 MG/DL Random Glucose 89 MG/DL Calcium Level 8.4 MG/DL Sodium Level 140 MEQ/L Chloride Level 103 MEQ/L Carbon Dioxide Level 28.4 MEQ/L Anion Gap 9 MEQ/L Random Vancomycin Level 18.8 COMMENT Imaging Last Impressions Chest X-Ray 12/31/16 0600 Signed Impressions: Service Date/Time: Saturday, December 31, 2016 03:51 - CONCLUSION: Esophageal stent in good position. Minimal consolidation left lower lobe with a pleural effusion. Niranjan Cardenas MD CT Angiography 12/29/16 0000 Signed Impressions: Service Date/Time: December 01:02 - CONCLUSION: 1. Negative for pulmonary embolus. 2. Esophageal stent present with abnormal soft tissue in the mediastinum around the esophageal stent. 3. Stable 2.3 cm nodule upper left lung. 4. Development of bilateral pleural effusions, left greater than right with partial loculation on the left side and compressive atelectasis in both lungs. Tio Espinoza MD GI Procedure 12/24/16 1119 Signed Impressions: Service Date/Time: Saturday, December 24, 2016 11:24 - CONCLUSION: 1. Esophageal stent in excellent position. Clifford Machado MD [facility] 12/23/16 0000 Signed Impressions: Service Date/Time: December 09:22 - CONCLUSION: 1. No evidence of fistula or obstruction. 2. Small diverticulum along the distal esophagus. Louie Conrad MD Abdomen/Pelvis CT 12/10/16 0000 Signed Impressions: Service Date/Time: Saturday, December 10, 2016 20:17 - CONCLUSION: 1. Focal thickening of the left rectus muscle with sinus tract extending from the lumen of the stomach into the rectus, presumably at site of prior percutaneous gastrostomy. 2. Moderate-sized left pleural effusion. No evidence of ascites. 3. 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 4. Sigmoid diverticulosis without radiographic evidence of diverticulitis. Armando Harrington MD Objective Remarks GENERAL: Awake alert and oriented 4 talkative and cooperative insight and judgment are good SKIN: Warm and dry. Abdomen is dressed currently HEAD: Atraumatic. Normocephalic. EYES: Pupils equal and round. No scleral icterus. No injection or drainage. Extraocular muscles grossly intact ENT: No nasal bleeding or discharge. Mucous membranes pink and moist. Tongue is midline NECK: Trachea midline. No JVD. Supple CARDIOVASCULAR: Regular rate and rhythm. S1-S2 no S3 or S4 no heave or thrill or rub or gallop RESPIRATORY: No accessory muscle use. Coarse breath sounds bilaterally. Breath sounds equal bilaterally. GASTROINTESTINAL: Abdomen soft, non-tender, nondistended. Hepatic and splenic margins not palpable. PEG tube in place dressed folate we'll discontinue MUSCULOSKELETAL: Extremities without clubbing, cyanosis, or edema. No obvious deformities. NEUROLOGICAL: Awake and alert. No obvious cranial nerve deficits. Motor grossly within normal limits. 4 out of 5 muscle strength in the arms and legs. Normal speech. PSYCHIATRIC: Appropriate mood and affect; insight and judgment normal. Procedures EGD with clip placement EGD with esophageal stent placement and PEG placement Medications and IVs Current Medications Sodium Chloride 1,000 ml @ 125 mls/hr Q8H IV Last administered on 12/10/16 13: 15; Start 12/10/16 at 12:31; Stop 12/10/16 at 15:12; Status DC Clindamycin Phosphate 600 mg/ Sodium Chloride 104 ml @ 208 mls/hr ONCE ONCE IV Last administered on 12/10/16 13:14; Start 12/10/16 at 12:45; Stop 12/10/16 at 13:14; Status DC Hydromorphone HCl (Dilaudid Pf Inj) 0.5 mg ONCE ONCE IV PUSH Last administered on 12/10/16 13:50; Start 12/10/16 at 13:30; Stop 12/10/16 at 13:31; Status DC Sodium Chloride 1,000 ml @ 100 mls/hr Q10H IV Last administered on 12/11/16 05 :08; Start 12/10/16 at 15:00; Stop 12/11/16 at 10:29; Status DC Sodium Chloride (NS Flush) 2 ml BID IV FLUSH Last administered on 01/02/17 21: 55; Start 12/10/16 at 21:00 Potassium Chloride 100 ml @ 50 mls/hr Q2H IV Last administered on 12/10/16 17: 59; Start 12/10/16 at 16:00; Stop 12/10/16 at 19:59; Status DC Hydromorphone HCl (Dilaudid Pf Inj) 0.5 mg Q4H PRN IV PUSH PAIN SCALE 5 TO 10 Last administered on 12/12/16 11:02; Start 12/10/16 at 15:45; Stop 12/12/16 at 12: 25; Status DC Piperacillin Sod/ Tazobactam Sod 100 ml @ 200 mls/hr Q8H IV Last administered on 12/13/16 08:58; Start 12/10/16 at 17:00; Stop 12/13/16 at 16:51; Status DC Vancomycin HCl 1000 mg/Sodium Chloride 250 ml @ 250 mls/hr ONCE ONCE IV ; Start 12/10/16 at 16:00; Stop 12/10/16 at 16:00; Status DC Pharmacy Profile Note 0 ml @ 0 mls/hr UNSCH OTHER ; Start 12/10/16 at 15:45; Stop 12/13/16 at 16:51; Status DC Vancomycin HCl 750 mg/Sodium Chloride 257.5 ml @ 250 mls/hr Q24H IV Last administered on 12/12/16 17:13; Start 12/10/16 at 17:00; Stop 12/13/16 at 16:51; Status DC Miscellaneous Information SPECIFIC LAB TO BE ... ONCE ONCE .XX ; Start at 16:45; Stop 12/13/16 at 16:46; Status DC Fluconazole/ Sodium Chloride 50 ml @ 50 mls/hr Q24H IV Last administered on 12/12 20:13; Start 12/10/16 at 20:00; Stop 12/13/16 at 16:51; Status DC Iohexol (Omnipaque 350 Inj) 96 ml STK-MED ONCE IV Last administered on 20:21; Start 12/10/16 at 20:21; Stop 12/10/16 at 20:22; Status DC Enoxaparin Sodium (Lovenox Inj) 40 mg Q24H SQ Last administered on 01/02/17 21 :55; Start 12/10/16 at 22:45; Status Future hold Amitriptyline HCl (Elavil) 25 mg HS PO Last administered on 01/02/17 21:54; Start 12/11/16 at 21:00 Levothyroxine Sodium (Synthroid) 75 mcg DAILY@07 PO Last administered on 06:08; Start 12/11/16 at 07:00 Lisinopril (Prinivil) 10 mg DAILY PO Last administered on 01/02/17 09:55; Start 12/11/16 at 09:00 Hydromorphone HCl (Dilaudid Pf Inj) 0.5 mg ONCE ONCE IV PUSH Last administered on 12/11/16 00:23; Start 12/10/16 at 23:45; Stop 12/10/16 at 23:46; Status DC Potassium Bicarb/ Potassium Chloride (K-Lyte Cl Eff) 50 meq ONCE ONCE PO ; Start 12/11/16 at 09:15; Stop 12/11/16 at 11:37; Status DC Dextrose/Sodium Chloride 1,000 ml @ 84 mls/hr [id number] IV Last administered on 12/26/16 08:23; Start 12/11/16 at 10:30; Stop 12/26/16 at 15:08; Status DC Potassium Chloride 100 ml @ 50 mls/hr Q2H IV Last administered on 12/11/16 15: 33; Start 12/11/16 at 12:00; Stop 12/11/16 at 15:59; Status DC Multivitamins 10 ml/Folic Acid 1 mg/Amino Acids/ Electrolytes/ Dextrose 1,010.2 ml @ 50 mls/hr [id number] IV-CENTRAL Last administered on 12/12/16 18:47; Start 12/11/16 at 20:00; Stop 12/13/16 at 10:36; Status DC Fat Emulsion Intravenous 250 ml @ 10 mls/hr Q24H IV-CENTRAL Last administered on 12/30/16 21:02; Start 12/11/16 at 20:00; Stop 12/31/16 at 15:38; Status DC Ondansetron HCl (Zofran Inj) 4 mg Q6HR PRN IV PUSH N/V Last administered on 17:22; Start 12/11/16 at 16:15; Stop 12/24/16 at 18:00; Status DC Hydromorphone HCl (Dilaudid Pf Inj) 0.5 mg ONCE ONCE IV PUSH Last administered on 12/11/16 23:30; Start 12/11/16 at 20:00; Stop 12/11/16 at 20:01; Status DC Hydromorphone HCl (Dilaudid Pf Inj) 1 mg Q3H PRN IV PUSH PAIN SCALE 5 TO 10 Last administered on 01/01/17 04:58; Start 12/12/16 at 14:45 Multivitamins 10 ml/Folic Acid 1 mg/Amino Acids/ Electrolytes/ Dextrose 2,010.2 ml @ 40 mls/hr Q24H IV Last administered on 12/28/16 20:46; Start 12/13/16 at 20:00; Stop 12/29/16 at 19:59; Status DC Hydromorphone HCl (Dilaudid Pf Inj) 1.5 mg ONCE ONCE IV PUSH Last administered on 12/14/16 23:18; Start 12/14/16 at 22:45; Stop 12/14/16 at 22:46; Status DC Potassium Chloride 100 ml @ 50 mls/hr Q2H IV Last administered on 12/15/16 04: 37; Start 12/15/16 at 01:15; Stop 12/15/16 at 05:14; Status DC Potassium Chloride (KCl) 40 meq ONCE ONCE PO ; Start 12/15/16 at 01:15; Stop 12/15/16 at 01:50; Status DC Potassium Bicarb/ Potassium Chloride (K-Lyte Cl Eff) 50 meq ONCE ONCE PO Last administered on 12/15/16 01:58; Start 12/15/16 at 02:00; Stop 12/15/16 at 02: 01; Status DC Magnesium Sulfate/ Dextrose 100 ml @ 100 mls/hr ONCE ONCE IV Last administered on 12/15/16 10:55; Start 12/15/16 at 09:00; Stop 12/15/16 at 09:59; Status DC Fentanyl (Duragesic 25 Mcg Patch.72 Hr) 1 patch Q3D T-DERMAL Last administered on 12/18/16 12:16; Start 12/15/16 at 12:00; Stop 12/20/16 at 17:53 ; Status DC Miscellaneous Information 1 Q3D T-DERMAL Last administered on 12/18/16 12:00; Start 12/18/16 at 12:00; Stop 12/20/16 at 17:53; Status DC Heparin Sodium (Porcine) (Heparin Central Flush) 200 units ONCE ONCE IV FLUSH Last administered on 12/16/16 09:42; Start 12/16/16 at 09:15; Stop 12/16/16 at 09:21; Status DC Potassium Chloride (KCl) 40 meq ONCE ONCE PO Last administered on 12/16/16 17 :47; Start 12/16/16 at 17:00; Stop 12/16/16 at 17:01; Status DC Potassium Chloride 100 ml @ 100 mls/hr Q1H IV Last administered on 12/17/16 00:46; Start 12/16/16 at 22:15; Stop 12/17/16 at 01:14; Status DC Lactated Ringer's 1,000 ml @ 30 mls/hr Q24H PRN IV SEE LABEL COMMENTS; Start at 02:30; Stop 12/20/16 at 02:29; Status DC Povidone Iodine (Betadine 5% Antisepsis Kit) 1 applic [employer] PRN EACH NARE SEE LABEL COMMENTS; Start 12/17/16 at 02:30; Stop 12/20/16 at 02:29; Status DC Chlorhexidine Gluconate (Chlorhexidine 2% Cloth) 3 pack [employer] PRN TOPICAL SEE LABEL COMMENTS; Start 12/17/16 at 02:30; Stop 12/20/16 at 02:29; Status DC Insulin Human Regular (NovoLIN R INJ) See Protocol Table ... [employer] PRN SQ SEE PROTOCOL TABLE; Start 12/17/16 at 02:30; Stop 12/20/16 at 02:29; Status DC Silver Nitrate/ Potassium Nitrate (Silver Nitrate Applicators) 4 appl STK-MED ONCE TOPICAL Last administered on 12/17/16 15:19; Start 12/17/16 at 15:19; Stop 12/17/16 at 17:45; Status DC Propofol (Diprivan 200 Mg/20 ml Inj) 320 mg STK-MED ONCE IV ; Start 12/17/16 at 15:19; Stop 12/17/16 at 17:48; Status DC Potassium Chloride 100 ml @ 50 mls/hr Q2H IV Last administered on 12/18/16 12 :16; Start 12/18/16 at 09:00; Stop 12/18/16 at 12:59; Status DC Lidocaine/ Diphenhydr/Alum/ Mg/Simeth (Magic Mouthwash Pediatric/Adult Liq) 5 ml ACHS SWISH-SWAL Last administered on 12/23/16 21:49; Start 12/19/16 at 16: 00; Stop 12/24/16 at 17:59; Status DC Nystatin (Mycostatin Liq) 5 ml QID SWISH-SWAL Last administered on 01/02/17 18:01; Start 12/19/16 at 18:00 Potassium Chloride 100 ml @ 50 mls/hr Q2H IV Last administered on 12/20/16 17 :33; Start 12/20/16 at 08:30; Stop 12/20/16 at 12:29; Status DC Magnesium Sulfate/ Dextrose 100 ml @ 100 mls/hr ONCE ONCE IV Last administered on 12/20/16 10:02; Start 12/20/16 at 08:30; Stop 12/20/16 at 09:29 ; Status DC Ipratropium [place] (Atrovent Neb) 0.5 mg Q4HR NEB NEB Last administered on 16:03; Start 12/20/16 at 20:00; Stop 12/29/16 at 21:07; Status DC Guaifenesin (Mucinex Er) 600 mg BID PO Last administered on 12/20/16 22:00; Start 12/20/16 at 21:00; Stop 12/21/16 at 09:45; Status DC Venlafaxine HCl (Effexor) 25 mg DAILY PO Last administered on 12/20/16 19:21; Start 12/20/16 at 18:00; Stop 12/21/16 at 18:01; Status DC Fentanyl (Duragesic 50 Mcg Patch.72 Hr) 1 patch Q3D T-DERMAL Last administered on 12/20/16 19:19; Start 12/20/16 at 18:00; Stop 12/24/16 at 17:59 ; Status DC Miscellaneous Information 1 Q3D T-DERMAL Last administered on 12/26/16 18:00; Start 12/20/16 at 18:00 Magnesium Sulfate/ Dextrose 100 ml @ 100 mls/hr Q1H IV Last administered on 11:17; Start 12/21/16 at 09:45; Stop 12/21/16 at 11:44; Status DC Potassium Chloride 100 ml @ 50 mls/hr Q2H IV ; Start 12/21/16 at 09:45; Stop at 13:44; Status Cancel Guaifenesin (Robitussin Liq) 600 mg BID PO Last administered on 12/30/16 21:00 ; Start 12/21/16 at 09:45 Magnesium Sulfate/ Dextrose 100 ml @ 100 mls/hr Q1H IV Last administered on 14:55; Start 12/21/16 at 14:45; Stop 12/21/16 at 15:44; Status DC Potassium Chloride 100 ml @ 50 mls/hr Q2H IV Last administered on 12/21/16 20 :32; Start 12/21/16 at 17:00; Stop 12/21/16 at 20:59; Status DC Sodium Chloride 250 ml @ 15 mls/hr ONCE ONCE IV Last administered on 13:17; Start 12/22/16 at 08:45; Stop 12/23/16 at 01:24; Status DC Acetaminophen (Tylenol) 650 mg Q4H PRN PO SEE LABEL COMMENTS; Start 12/22/16 at 08:45; Stop 12/22/16 at 12:46; Status DC Diphenhydramine HCl (Benadryl) 25 mg Q4H PRN PO SEE LABEL COMMENTS; Start 12/22 at 08:45; Stop 12/22/16 at 12:46; Status DC Furosemide (Lasix Inj) 20 mg ONCE ONCE IV Last administered on 12/22/16 16:31 ; Start 12/22/16 at 08:45; Stop 12/22/16 at 08:46; Status DC Acetaminophen (Tylenol) 650 mg Q4H PRN PO SEE LABEL COMMENTS Last administered on 12/22/16 13:59; Start 12/22/16 at 14:00; Stop 12/22/16 at 18:01; Status DC Diphenhydramine HCl (Benadryl) 25 mg Q4H PRN PO SEE LABEL COMMENTS Last administered on 12/22/16 17:18; Start 12/22/16 at 14:00; Stop 12/22/16 at 18:01 ; Status DC Patient Own Medication PT OWN MED: TRANXENE-T (CLORAZEPA... TID PO Last administered on 01/02/17 18:41; Start 12/23/16 at 13:00; Status Future hold Diatrizoate Meglum/ Diatrizoate Sod ( Gastroview Liq) 240 ml STK-MED ONCE PO Last administered on 12/23/16 09:45; Start 12/23/16 at 09:45; Stop 12/23/16 at 10:14; Status DC Iron Sucrose 200 mg/Sodium Chloride 110 ml @ 110 mls/hr DAILY IV Last administered on 12/26/16 08:23; Start 12/24/16 at 09:00; Stop 12/26/16 at 09:59 ; Status DC Lactated Ringer's 1,000 ml @ 30 mls/hr Q24H PRN IV SEE LABEL COMMENTS; Start at 03:30; Stop 12/27/16 at 03:29; Status DC Sodium Chloride 500 ml @ 30 mls/hr [id number] PRN IV SEE LABEL COMMENTS; Start at 03:30; Stop 12/27/16 at 03:29; Status DC Morphine Sulfate (*morphine INJ PERIprocedure ONLY) 8 mg STK-MED ONCE .ROUTE Last administered on 12/24/16 12:29; Start 12/24/16 at 12:29; Stop 12/24/16 at 12:30; Status DC Pantoprazole Sodium (Protonix) 40 mg Q12HR PO Last administered on 01/02/17 21 :54; Start 12/24/16 at 12:45 Miscellaneous Information ALL NURSING DEPARTME... UNSCH PRN .XX SEE LABEL COMMENTS; Start 12/24/16 at 13:45; Stop 12/25/16 at 13:44; Status DC Propofol (Diprivan 200 Mg/20 ml Inj) 300 mg STK-MED ONCE IV ; Start 12/24/16 at 11:40; Stop 12/24/16 at 15:16; Status DC Ondansetron HCl (Zofran Inj) 4 mg Q4HR PRN IV PUSH N/V Last administered on 12:59; Start 12/24/16 at 18:00 Potassium Chloride 100 ml @ 100 mls/hr Q1H IV ; Start 12/25/16 at 10:30; Stop 12/25/16 at 13:29; Status DC Magnesium Sulfate/ Dextrose 100 ml @ 100 mls/hr ONCE ONCE IV Last administered on 12/25/16 11:16; Start 12/25/16 at 10:30; Stop 12/25/16 at 11:29 ; Status DC Morphine Sulfate (Oramorph Sr) 30 mg Q12HR PO Last administered on 12/28/16 08 :21; Start 12/26/16 at 21:00; Stop 12/28/16 at 14:20; Status DC Acetaminophen (Tylenol) 650 mg ONCE ONCE PO Last administered on 12/28/16 02: 12; Start 12/27/16 at 22:30; Stop 12/27/16 at 22:31; Status DC Diphenhydramine HCl (Benadryl) 25 mg ONCE ONCE PO Last administered on 02:12; Start 12/27/16 at 22:30; Stop 12/27/16 at 22:31; Status DC Multivitamins 10 ml/Folic Acid 1 mg/Amino Acids/ Electrolytes/ Dextrose 1,010.2 ml @ 40 mls/hr Q24H IV Last administered on 12/30/16 21:01; Start 12/29/16 at 20:00; Stop 12/31/16 at 15:38; Status DC Morphine Sulfate (Oramorph Sr) 15 mg BID PO Last administered on 01/02/17 21: 53; Start 12/28/16 at 21:00 Oxycodone HCl (Roxicodone) 5 mg Q6H PRN PO PAIN SCALE 1 TO 4; Start 12/28/16 at 14:30; Stop 12/28/16 at 14:30; Status DC Oxycodone HCl (Roxicodone) 5 mg Q4H PRN PO PAIN SCALE 1 TO 4 Last administered on 01/03/17 04:20; Start 12/28/16 at 14:30 Ipratropium [place] (Atrovent Neb) 0.5 mg Q6HR NEB NEB Last administered on 08:48; Start 12/29/16 at 22:00; Stop 12/30/16 at 13:09; Status DC Ipratropium [place] (Atrovent Neb) 0.5 mg Q2HR NEB PRN NEB wheezing; Start at 21:15; Stop 12/30/16 at 13:09; Status DC Methylprednisolone Sodium Succinate (SoluMEDROL INJ) 125 mg ONCE ONCE IV PUSH Last administered on 12/29/16 22:06; Start 12/29/16 at 22:00; Stop 12/29/16 at 22:01; Status DC Bumetanide (Bumex Inj) 1 mg ONCE ONCE IV PUSH Last administered on 12/29/16 22:07; Start 12/29/16 at 22:00; Stop 12/29/16 at 22:01; Status DC Enoxaparin Sodium (Lovenox Inj) 70 mg ONCE ONCE SQ Last administered on 22:11; Start 12/29/16 at 22:15; Stop 12/29/16 at 22:16; Status DC Iohexol (Omnipaque 350 Inj) 74 ml STK-MED ONCE IVCONTRAST Last administered on 12/30/16 01:17; Start 12/30/16 at 01:17; Stop 12/30/16 at 01:18; Status DC Piperacillin Sod/ Tazobactam Sod 100 ml @ 200 mls/hr Q6H IV Last administered on 01/03/17 03:29; Start 12/30/16 at 03:00 Pharmacy Profile Note 0 ml @ 0 mls/hr UNSCH OTHER ; Start 12/30/16 at 02:30 Vancomycin HCl 1000 mg/Sodium Chloride 250 ml @ 250 mls/hr ONCE ONCE IV Last administered on 12/30/16 03:40; Start 12/30/16 at 02:30; Stop 12/30/16 at 03:29 ; Status DC Vancomycin HCl 1250 mg/Sodium Chloride 262.5 ml @ 250 mls/hr Q12H IV Last administered on 01/01/17 04:08; Start 12/30/16 at 16:00; Stop 01/02/17 at 09:02 ; Status DC Miscellaneous Information SPECIFIC LAB TO BE DRAWN:VANCOMYCIN TROUGH DATE TO... ONCE ONCE .XX ; Start 01/01/17 at 03:45; Stop 01/01/17 at 03:46; Status DC Furosemide (Lasix Inj) 40 mg Q8H IV PUSH Last administered on 12/31/16 05:19; Start 12/30/16 at 14:00; Stop 12/31/16 at 06:01; Status DC Magnesium Oxide (Mag-Ox) 800 mg UNSCH PRN PO For Magnesium 1.2 - 1.6 mg/dL; Start 12/30/16 at 12:15; Stop 01/01/17 at 07:19; Status DC Magnesium Sulfate 4 gm/Sodium Chloride 100 ml @ 50 mls/hr UNSCH PRN IV For Magnesium 0.9 - 1.1 mg/dL; Start 12/30/16 at 12:15; Stop 01/01/17 at 07:19; Status DC Magnesium Sulfate 2 gm/Sodium Chloride 100 ml @ 50 mls/hr UNSCH PRN IV For Magnesium 1.2 - 1.6 mg/dL; Start 12/30/16 at 12:15; Stop 01/01/17 at 07:19; Status DC Potassium Chloride 100 ml @ 50 mls/hr Q2H PRN IV For Potassium 2.8 - 3.2 mEq/ L Last administered on 12/31/16 17:12; Start 12/30/16 at 12:15; Stop 01/01/17 at 07:19; Status DC Potassium Chloride 100 ml @ 50 mls/hr Q2H PRN IV For Potassium 3.3 - 3.5 mEq/ L Last administered on 12/30/16 14:36; Start 12/30/16 at 12:15; Stop 01/01/17 at 07:19; Status DC Potassium Chloride 100 ml @ 50 mls/hr Q2H PRN IV For Potassium 2.8 - 3.2 mEq/L ; Start 12/30/16 at 12:15; Stop 01/01/17 at 07:19; Status DC Potassium Chloride 100 ml @ 25 mls/hr UNSCH PRN IV For Potassium 3.3 - 3.5 mEq /L; Start 12/30/16 at 12:15; Stop 01/01/17 at 07:19; Status DC Potassium Phosphate (K-Phos) 2,000 mg Q4H PRN PO For Phosphorus < 2.5 mg/dL; Start 12/30/16 at 12:15; Stop 01/01/17 at 07:19; Status DC Potassium Phosphate (K-Phos) 2,000 mg UNSCH PRN PO/TUBE SEE LABEL COMMENTS; Start 12/30/16 at 12:15; Stop 01/01/17 at 07:19; Status DC Potassium Phosphate 30 mmol/ Sodium Chloride 260 ml @ 42 mls/hr UNSCH PRN IV SEE LABEL COMMENTS; Start 12/30/16 at 12:15; Stop 01/01/17 at 07:19; Status DC Sodium Phosphate 30 mmol/Sodium Chloride 250 ml @ 42 mls/hr UNSCH PRN IV For Phosphorus < 2.5 mg/dL; Start 12/30/16 at 12:15; Stop 01/01/17 at 07:19; Status DC Acetazolamide Sodium (Diamox Inj) 500 mg ONCE ONCE IV PUSH Last administered on 12/30/16 14:30; Start 12/30/16 at 14:00; Stop 12/30/16 at 14:01; Status DC Methylprednisolone Sodium Succinate (SoluMEDROL INJ) 60 mg Q12HR IV PUSH Last administered on 12/31/16 21:13; Start 12/30/16 at 21:00; Stop 01/01/17 at 07:19 ; Status DC Albuterol/ Ipratropium (Duoneb Neb) 1 ampule Q2HR NEB PRN INH WHEEZING; Start 12/30/16 at 12:15 Albuterol/ Ipratropium (Duoneb Neb) 1 ampule Q4HR NEB INH Last administered on 01/02/17 15:35; Start 12/30/16 at 16:00 Furosemide (Lasix Inj) 20 mg DAILY IV PUSH Last administered on 01/02/17 09:57 ; Start 12/31/16 at 22:45 Methylprednisolone Sodium Succinate (SoluMEDROL INJ) 40 mg Q12HR IV PUSH Last administered on 01/02/17 21:54; Start 01/01/17 at 09:00 Miscellaneous Information SPECIFIC LAB TO BE ERON... ONCE ONCE .XX ; Start 01/01 at 15:45; Stop 01/01/17 at 15:46; Status DC Sodium Chloride (NS Flush) 5 ml Q21D IV FLUSH Last administered on 01/02/17 05 :55; Start 01/02/17 at 05:00 Heparin Sodium (Porcine) (Heparin Central Flush) 500 units Q21D IV FLUSH Last administered on 01/02/17 05:55; Start 01/02/17 at 05:00 Sodium Chloride (NS Flush) 5 ml UNSCH PRN IV FLUSH SEE LABEL COMMENTS Last administered on 01/02/17 16:50; Start 01/02/17 at 05:00 Heparin Sodium (Porcine) (Heparin Central Flush) 250 units UNSCH PRN IV FLUSH FLUSH AFTER USING IV ACCESS Last administered on 01/03/17 04:20; Start at 05:00 Vancomycin HCl 1250 mg/Sodium Chloride 262.5 ml @ 250 mls/hr Q24H IV Last administered on 01/02/17t 10:17; Start 01/02/17 at 10:00 Miscellaneous Information SPECIFIC LAB TO BE ... 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 Valdovinos is a 76 year old female with a history of NSCLC, radiation esophagitis presents to the ED due to complication of the PEG tube insertion site. PEG Tube was removed recently due to large leakage. 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 - Acute respiratory failure - hypoxic - Probable pulmonary edema - COPD exacerbation - Patient was under ICU service, improved with diuresis. - Maintain O2 via Nasal Cannula to keep O2 sat > 90%. - Continue IV steroid, DuoNeb. 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 - s/p esophageal stent placement by IR on 12/24/2016, PEG tube placement by GI on 12/24/2016. - Continue IV Dilaudid PRN. - Patient is off TPN and currently tolerating oral feeding well. - Gram positive Bacteremia - ID following. Patient is currently on Vancomycin and Zosyn. - Repeat Blood cultures from 12/31/2016 Negative so far. - If necessary, patient can use her port for IV abx at home. - History of Non-small cell lung cancer - s/p chemo, radiation therapy. - Hypokalemia - resolved. Required Potassium and magnesium replacements. - Hypothyroidism - continue Levothyroxine 75mcg Qday. - Hypertension - continue Lisinopril 10mg Qday. BACTERMIA POSSIBLE PORT INFECTION DEFER TO ID Full code. Lovenox. Discussed with RN. Discharge plan: When okay with ID, patient can likely go home with home health. Raz Pickens DO Jan 03, 2017 08:46
[2017-01-03] MEDS: guaiFENesin SOLUTION 200 MG/10 ML CUP PO SCH ×2 (09:00→21:00)
[2017-01-03] MEDS: NYSTATIN SUSP 500,000 U/5 ML CUP SWISH-SWAL SCH ×4 (09:35→21:01)
[2017-01-03] MEDS: SODIUM CHLORIDE 0.9% FLUSH 10 ML FLUSH IV FLUSH SCH ×2 (09:36→21:00)
[2017-01-03] MEDS: methylPREDNISolone SOD SUCC 40 MG/1 ML VIAL IV PUSH SCH ×2 (09:37→21:01)
[2017-01-03] MEDS: LISINOPRIL 10 MG TAB PO SCH (09:37)
[2017-01-03] MEDS: PANTOPRAZOLE SOD 40 MG DELAYED RELEASE TAB PO SCH ×2 (09:37→21:03)
[2017-01-03] MEDS: FUROSEMIDE 20 MG/2 ML VIAL IV PUSH SCH (09:37)
[2017-01-03] MEDS: MORPHINE SULFATE 15 MG CONTROLLED RELEASE TAB PO SCH ×2 (09:39→21:03)
[2017-01-03] MEDS: CLORAZEPATE PO SCH ×3 (09:40→17:46)
[2017-01-03] MEDS: [UNRECOGNIZED DRUG - OTHER] PO SCH ×3 (09:40→17:46)
[2017-01-03] MEDS: VANCOMYCIN INJ 1,250 MG in SODIUM CHLOR 0.9% 250 ML INJ 250 ML IV SCH (10:50)
--- NOTE | 2017-01-03 12:10 | HHI.HCPN ---
Patient seen in her room. Sitting up in chair in no acute distress. Daughter Caprice at bedside. Patient declined palliative care follow-up visit today. Patient indicating no further questions regarding advance directives information provided during initial consultation. Daughter verbalized that forms have not been reviewed or completed. Goals of care remain unchanged from initial consultation. Katja Maloney Jan 03, 2017 12:10
--- NOTE | 2017-01-03 14:46 | HHI.IDPN ---
Note Infectious Disease Note Patient feels okay. On nasal O2. Blood culture 12/30 and 12/31 staph epi. Afebrile. Reports a little drainage around the PEG. Eating solid food. S/P esophageal stent and PEG on 12/24/16. Peg was placed into previous peg site where a fistula was noted. Admitted after PEG dislodged noted to have surrounding erythema. PAST MEDICAL HISTORY: 1. 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 2. Esophageal strictures. 3. Radiation esophagitis. 4. Hypothyroidism. 5. Hypertension. 6. Gastroesophageal reflux disease (GERD). 7. Hyperlipidemia. 8. COPD. 9. Macular degeneration. 10. Hysterectomy. 11. Tonsillectomy. 12. Tubal ligation. ALLERGIES: OXACILLIN. ANTIBIOTICS: Vancomycin. Zosyn. OBJECTIVE: Vital Signs Date Time Temp Pulse Resp B/P (MAP) Pulse Ox O2 Delivery O2 Flow Rate FiO2 01/03/17 13:00 96 01/03/17 12:05 97.0 93 18 121/66 (84) 99 01/03/17 12:00 90 01/03/17 11:56 99 Nasal Cannula 2.00 01/03/17 11:00 94 01/03/17 10:00 94 01/03/17 09:00 88 01/03/17 08:24 98.3 88 18 121/65 (83) 96 01/03/17 08:00 82 01/03/17 07:45 96 Nasal Cannula 3.00 01/03/17 07:00 96 Nasal Cannula 3.00 01/03/17 07:00 89 01/03/17 06:00 81 01/03/17 05:00 92 01/03/17 04:00 98.0 91 16 126/65 (85) 96 01/03/17 04:00 94 01/03/17 03:03 84 01/03/17 03:00 96 Nasal Cannula 3.00 01/03/17 02:16 97 Nasal Cannula 3.00 01/03/17 02:00 83 01/03/17 01:00 80 01/03/17 01:00 16 01/03/17 00:00 98.8 96 18 143/74 (97) 96 01/03/17 00:00 78 01/02/17 23:03 14 01/02/17 23:00 96 Nasal Cannula 3.00 01/02/17 23:00 88 01/02/17 22:00 92 01/02/17 21:00 84 01/02/17 20:00 98.4 94 16 131/66 (87) 98 01/02/17 20:00 88 01/02/17 19:00 98 Nasal Cannula 3.00 01/02/17 19:00 96 01/02/17 17:00 98 01/02/17 16:00 96 16 130/78 (95) 94 01/02/17 16:00 94 Nasal Cannula 3.00 01/02/17 16:00 94 01/02/17 15:00 96 01/03/17 01/03/17 01/04/17 14:59 22:59 06:59 Intake Total 360 ml Balance 360 ml IV Total 360 ml Laboratory Tests Test 01/02/17 06:03 White Blood Count 9.5 TH/MM3 Red Blood Count 3.84 MIL/MM3 Hemoglobin 10.6 GM/DL Hematocrit 33.3 % Mean Corpuscular Volume 86.8 FL Mean Corpuscular Hemoglobin 27.7 PG Mean Corpuscular Hemoglobin Concent 31.9 % Red Cell Distribution Width 21.7 % Platelet Count 247 TH/MM3 Mean Platelet Volume 9.1 FL Neutrophils (%) (Auto) 85.2 % Lymphocytes (%) (Auto) 11.2 % Monocytes (%) (Auto) 3.4 % Eosinophils (%) (Auto) 0.1 % Basophils (%) (Auto) 0.1 % Neutrophils # (Auto) 8.1 TH/MM3 Lymphocytes # (Auto) 1.1 TH/MM3 Monocytes # (Auto) 0.3 TH/MM3 Eosinophils # (Auto) 0.0 TH/MM3 Basophils # (Auto) 0.0 TH/MM3 CBC Comment DIFF FINAL Differential Comment Laboratory Tests Test 01/02/17 06:03 Blood Urea Nitrogen 31 MG/DL Creatinine 0.73 MG/DL Random Glucose 89 MG/DL Calcium Level 8.4 MG/DL Sodium Level 140 MEQ/L Potassium Level 4.1 MEQ/L Chloride Level 103 MEQ/L Carbon Dioxide Level 28.4 MEQ/L Anion Gap 9 MEQ/L Estimat Glomerular Filtration Rate 77 ML/MIN Microbiology Date/Time Source Procedure Growth Status 01/02/17 19:02 Blood Peripheral Aerobic Blood Culture - Preliminary NO GROWTH IN 1 DAY Resulted 01/02/17 19:02 Blood Peripheral Anaerobic Blood Culture - Preliminary NO GROWTH IN 1 DAY Resulted 01/02/17 18:52 Blood Peripheral Aerobic Blood Culture - Preliminary NO GROWTH IN 1 DAY Resulted 01/02/17 18:52 Blood Peripheral Anaerobic Blood Culture - Preliminary NO GROWTH IN 1 DAY Resulted IMAGING: Chest X-Ray 12/31/16 0600 Signed Impressions: Service Date/Time: Saturday, December 31, 2016 03:51 - CONCLUSION: Esophageal stent in good position. Minimal consolidation left lower lobe with a pleural effusion. Niranjan Cardenas MD CT Angiography 12/29/16 0000 Signed Impressions: Service Date/Time: December 01:02 - CONCLUSION: 1. Negative for pulmonary embolus. 2. Esophageal stent present with abnormal soft tissue in the mediastinum around the esophageal stent. 3. Stable 2.3 cm nodule upper left lung. 4. Development of bilateral pleural effusions, left greater than right with partial loculation on the left side and compressive atelectasis in both lungs. Tio Espinoza MD GI Procedure 12/24/16 1119 Signed Impressions: Service Date/Time: Saturday, December 24, 2016 11:24 - CONCLUSION: 1. Esophageal stent in excellent position. Clifford Machado MD Upper GI Series 12/23/16 0000 Signed Impressions: Service Date/Time: December 09:22 - CONCLUSION: 1. No evidence of fistula or obstruction. 2. Small diverticulum along the distal esophagus. Louie Conrad MD Abdomen/Pelvis CT 12/10/16 0000 Signed Impressions: Service Date/Time: Saturday, December 10, 2016 20:17 - CONCLUSION: 1. Focal thickening of the left rectus muscle with sinus tract extending from the lumen of the stomach into the rectus, presumably at site of prior percutaneous gastrostomy. 2. Moderate-sized left pleural effusion. No evidence of ascites. 3. 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 4. Sigmoid diverticulosis without radiographic evidence of diverticulitis. Armando Harrington MD PHYSICAL EXAMINATION: GENERAL: No acute distress. HEENT: No icterus. Oropharynx with moist mucosa. No visible lesions. NECK: The neck is supple. LUNGS: Clear breath sounds. HEART: Regular S1 and S2 without murmurs. No rubs or gallops. CHEST: Chest infusion port is present at the right upper chest wall and appears intact. No erythema. ABDOMEN: Bowel sounds present, soft. Non tender. No erythema. EXTREMITIES: No clubbing or cyanosis or edema. SKIN: No rash. NEUROLOGIC: Nonfocal. PSYCHIATRIC: calm and cooperative. IMPRESSION: 1. Bacteremia gram positive. Staph Epi. Suspect infusaport catheter infection. 2. 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 3. Leukocytosis. WBC down to nl. RECOMMENDATIONS: 1. Continue Vancomycin. 2. Remove the infusaport. 3. Monitor blood culture. If current blood culture is negative at 72 hours a central line can be placed for continued IV antibiotic. Plan on 10 days from the negative blood culture. If the current culture is positive, blood culture needs to be repeated the following day after infusaport is removed. 4. Discontinue Zosyn. Karlos Guy MD Jan 03, 2017 14:46
[2017-01-03] MEDS: AMITRIPTYLINE HCL 25 MG TAB PO SCH (21:03)
--- NOTE | 2017-01-03 21:53 | PD.ONC.PN ---
Subjective Subjective Remarks weak Requiring less oxygen 2lpm has bacteremia/sepsis with staph epi oral intake is improving Objective Data Date Time Temp Pulse Resp B/P (MAP) Pulse Ox O2 Delivery O2 Flow Rate FiO2 01/03/17 20:59 97.4 91 16 136/53 (80) 95 01/03/17 18:02 102 01/03/17 17:00 94 01/03/17 16:12 94 Nasal Cannula 2.00 01/03/17 16:09 95 Nasal Cannula 2.00 01/03/17 16:00 98.2 96 18 139/71 (93) 95 01/03/17 16:00 92 01/03/17 15:00 88 01/03/17 14:00 100 01/03/17 13:00 96 01/03/17 12:05 97.0 93 18 121/66 (84) 99 01/03/17 12:00 90 01/03/17 11:56 99 Nasal Cannula 2.00 01/03/17 11:00 94 01/03/17 10:00 94 01/03/17 09:00 88 01/03/17 08:24 98.3 88 18 121/65 (83) 96 01/03/17 08:00 82 01/03/17 07:45 96 Nasal Cannula 3.00 01/03/17 07:00 96 Nasal Cannula 3.00 01/03/17 07:00 89 01/03/17 06:00 81 01/03/17 05:00 92 01/03/17 04:00 98.0 91 16 126/65 (85) 96 01/03/17 04:00 94 01/03/17 03:03 84 01/03/17 03:00 96 Nasal Cannula 3.00 01/03/17 02:16 97 Nasal Cannula 3.00 01/03/17 02:00 83 01/03/17 01:00 80 01/03/17 01:00 16 01/03/17 00:00 98.8 96 18 143/74 (97) 96 01/03/17 00:00 78 01/02/17 23:03 14 01/02/17 23:00 96 Nasal Cannula 3.00 01/02/17 23:00 88 01/02/17 22:00 92 01/03/17 01/03/17 01/03/17 06:59 14:59 22:59 Intake Total 440 ml 360 ml 1070 ml Output Total 425 ml 850 ml Balance 15 ml 360 ml 220 ml Result Diagram: 01/02/17 0603 01/02/17 0603 Culture Results Microbiology Date/Time Source Procedure Growth Status 01/02/17 19:02 Blood Peripheral Aerobic Blood Culture - Preliminary NO GROWTH IN 1 DAY Resulted 01/02/17 19:02 Blood Peripheral Anaerobic Blood Culture - Preliminary NO GROWTH IN 1 DAY Resulted 01/02/17 18:52 Blood Peripheral Aerobic Blood Culture - Preliminary NO GROWTH IN 1 DAY Resulted 01/02/17 18:52 Blood Peripheral Anaerobic Blood Culture - Preliminary NO GROWTH IN 1 DAY Resulted Administered Medications Medications (Trade) Dose Ordered Sig/Alla Route PRN Reason Start Time Stop Time Status Last Admin Dose Admin Sodium Chloride (NS Flush) 2 ml BID IV FLUSH 12/10/16 21:00 01/03/17 21:00 Enoxaparin Sodium (Lovenox Inj) 40 mg Q24H SQ 12/10/16 22:45 Future hold 01/02/17 21:55 Amitriptyline HCl (Elavil) 25 mg HS PO 12/11/16 21:00 01/03/17 21:03 Levothyroxine Sodium (Synthroid) 75 mcg DAILY@07 PO 12/11/16 07:00 01/03/17 06:08 Lisinopril (Prinivil) 10 mg DAILY PO 12/11/16 09:00 01/03/17 09:37 Hydromorphone HCl (Dilaudid Pf Inj) 1 mg Q3H PRN IV PUSH PAIN SCALE 5 TO 10 12/12/16 14:45 01/01/17 04:58 Nystatin (Mycostatin Liq) 5 ml QID SWISH-SWAL 12/19/16 18:00 01/03/17 21:01 Miscellaneous Information 1 Q3D T-DERMAL 12/20/16 18:00 12/26/16 18:00 Guaifenesin (Robitussin Liq) 600 mg BID PO 12/21/16 09:45 12/30/16 21:00 Patient Own Medication PT OWN MED: TRANXENE-T (CLORAZEPA... TID PO 12/23/16 13:00 Future hold 01/03/17 17:46 Pantoprazole Sodium (Protonix) 40 mg Q12HR PO 12/24/16 12:45 01/03/17 21:03 Ondansetron HCl (Zofran Inj) 4 mg Q4HR PRN IV PUSH N/V 12/24/16 18:00 01/02/17 12:59 Morphine Sulfate (Oramorph Sr) 15 mg BID PO 12/28/16 21:00 01/03/17 21:03 Oxycodone HCl (Roxicodone) 5 mg Q4H PRN PO PAIN SCALE 1 TO 4 12/28/16 14:30 01/03/17 21:02 Furosemide (Lasix Inj) 20 mg DAILY IV PUSH 12/31/16 22:45 01/03/17 09:37 Methylprednisolone Sodium Succinate (SoluMEDROL INJ) 40 mg Q12HR IV PUSH 01/01/17 09:00 01/03/17 21:01 Sodium Chloride (NS Flush) 5 ml Q21D IV FLUSH 01/02/17 05:00 01/02/17 05:55 Heparin Sodium (Porcine) (Heparin Central Flush) 500 units Q21D IV FLUSH 01/02/17 05:00 01/02/17 05:55 Sodium Chloride (NS Flush) 5 ml UNSCH PRN IV FLUSH SEE LABEL COMMENTS 01/02/17 05:00 01/02/17 16:50 Heparin Sodium (Porcine) (Heparin Central Flush) 250 units UNSCH PRN IV FLUSH FLUSH AFTER USING IV ACCESS 01/02/17 05:00 01/03/17 04:20 Vancomycin HCl 1250 mg/Sodium Chloride 262.5 ml @ 250 mls/hr Q24H IV 01/02/17 10:00 01/03/17 10:50 Objective Remarks GENERAL: acutely ill SKIN: Warm and dry. CARDIOVASCULAR: Regular rate and rhythm without murmurs. RESPIRATORY: Breath sounds equal bilaterally. No accessory muscle use. GASTROINTESTINAL: Abdomen soft, non-tender, nondistended. EXTREMITIES: No cyanosis, or edema. Assessment/Plan Problem List: (1) Dysphagia ICD Codes: R13.10 - Dysphagia, unspecified Status: Acute Plan: -- Weaning TPN -- Oral nutrition improving History --presents to [facility] with recurrent symptoms from her radiation esophagitis. --Due to significant dysphagia a PEG tube was placed. --had complications from the PEG tube insertion site. --++large amount of leakage and a copious amount of purulent drainage from the PEG tube insertion site. +concern for abdominal wall fistula. --EGD and stent placement and PEG placement on 12.24-->EGD showed Radiation esophagitis, Esophageal stricture, Gastrocutaneous fistula, Gastric ulcers --upper GI series, 12/23-->No evidence of fistula or obstruction. Small diverticulum along the distal esophagus. (2) Non-small cell lung cancer (NSCLC) ICD Codes: C34.90 - Malignant neoplasm of unspecified part of unspecified bronchus or lung Status: Acute Plan: --further treatment in clinic once improvement in current conditions History: diagnosed via CT-guided biopsy in June of 2016. PET/CT scan confirmed this disease to be Stage III-B. --received concurrent chemotherapy and radiation treatments. --had a total of four cycles of chemotherapy. --Follow-up imaging showed a residual lung lesion in the left upper lobe which was 1.8 x 2.4 x 3.8 cm. The patient was recommended two additional consolidation treatments but unfortunately due to her decline in performance status, she was not able to be given this treatment. (3) Normocytic anemia ICD Codes: D64.9 - Anemia, unspecified Status: Acute Plan: monitor and transfuse as needed, given iron IV History: --patient became severely anemic with a hemoglobin in the 6 range and she was given 2 units of packed red blood cells. --no evidence of hemolysis. --likely losing blood through the GI tract. --also a component of malnutrition. --currently being seen by GI and further workup is ongoing. --ordered daily IV iron x 3 treatments. (4) Pain ICD Codes: R52 - Pain, unspecified Status: Acute Plan: --on IV Dilaudid p.r.n. 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 currently getting wound care. --has also been evaluated by Surgery and there are no surgical plans at this time. Assessment 76y/o female with a history of [id number] lung cancer who was admitted to the hospital for complications from radiation esophagitis. h/o History of [id number] lung cancer, Stage III-B, status post concurrent chemotherapy and radiation treatment. Esophageal strictures status post dilatation x 4. Hypertension. Port placement. Lung biopsy. Hysterectomy. Tonsillectomy. PEG tube placement. Plan 1. Stap epidermis bacteremia: on vancomycin, port being removed 2. Malnutrition: oral intake improving: will wean TPN 3. anemia: Hb stable. no blood products today 4. NSCLC- stage III s/p concurrent chemo and XRT Discussed with oMntrell Musa MD Jan 03, 2017 21:53
[2017-01-03] MEDS: ENOXAPARIN SODIUM 40 MG/0.4 ML SYRINGE SQ SCH (22:45)
[2017-01-04] VITALS (9 sets, daily range): BP systolic 123–155; BP diastolic 50–76; PULSE 82–97; RESP 16–20; TEMP 97.5–98.8; O2SAT 92–99
[2017-01-04] MEDS: LEVOTHYROXINE SODIUM 75 MCG TAB PO SCH (05:54)
--- NOTE | 2017-01-04 06:31 | RADRPT ---
EXAM DATE/TIME: 01/04/2017 05:46 [facility] COMPARISON: CHEST SINGLE AP, December 31, 2016, 3:51. INDICATIONS : Short of breath, pain left upper abdomen MEDICAL HISTORY : Carcinoma, lung. Hypertension Cardiovascular disease. chemo and radiation therapy SURGICAL HISTORY : Hysterectomy. esophageal stent, G-tube(removed), infusaport ENCOUNTER: Subsequent ACUITY: 1 month PAIN SCORE: 5/10 LOCATION: Bilateral chest FINDINGS: Portable AP view of the chest demonstrates a normal-sized cardiac silhouette. Right chest wall Infuse -a-Port is present. Esophageal stent remains present. No effusion, consolidation, or pneumothorax is identified. Bones and soft tissues demonstrate no acute finding. Bilateral breast implants are presen t. CONCLUSION: No acute cardiopulmonary abnormality is identified. The left basilar opacity documented previously anthony s resolved. Og Miranda MD on January 04, 2017 at 6:28 Board Certified Radiologist. This report was verified electronically.
[2017-01-04] MEDS: [UNRECOGNIZED DRUG - OTHER] PO SCH ×3 (08:31→18:10)
[2017-01-04] MEDS: LISINOPRIL 10 MG TAB PO SCH (08:31)
[2017-01-04] MEDS: CLORAZEPATE PO SCH ×3 (08:31→18:10)
[2017-01-04] MEDS: MORPHINE SULFATE 15 MG CONTROLLED RELEASE TAB PO SCH ×2 (08:31→21:32)
[2017-01-04] MEDS: NYSTATIN SUSP 500,000 U/5 ML CUP SWISH-SWAL SCH ×4 (08:31→21:32)
[2017-01-04] MEDS: PANTOPRAZOLE SOD 40 MG DELAYED RELEASE TAB PO SCH ×2 (08:31→21:31)
[2017-01-04] MEDS: guaiFENesin SOLUTION 200 MG/10 ML CUP PO SCH ×2 (08:32→21:32)
[2017-01-04] MEDS: FUROSEMIDE 20 MG/2 ML VIAL IV PUSH SCH (08:32)
[2017-01-04] MEDS: SODIUM CHLORIDE 0.9% FLUSH 10 ML FLUSH IV FLUSH SCH ×2 (08:32→21:34)
[2017-01-04] MEDS: methylPREDNISolone SOD SUCC 40 MG/1 ML VIAL IV PUSH SCH ×2 (08:32→21:33)
--- NOTE | 2017-01-04 09:12 | HHI.PR ---
Subjective Remarks Ms. Valdovinos is a 76 year old female with a history of NSCLC, radiation esophagitis presents to the ED due to complication of the PEG tube insertion site. PEG Tube was removed recently due to large leakage. 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 at this time status post Right Port removal, her Daughter in the room Miss Juanita Sullivan. states she does not want to take replacement for Potassium IV will continue Potassium by mouth. denies Nausea, vomit or diarrhea. Objective Vital Signs Date Time Temp Pulse Resp B/P (MAP) Pulse Ox O2 Delivery O2 Flow Rate FiO2 01/04/17 08:00 98.0 84 20 140/76 (97) 92 01/04/17 03:53 97.9 94 18 132/50 (77) 96 01/03/17 20:59 97.4 91 16 136/53 (80) 95 01/03/17 18:02 102 01/03/17 17:00 94 01/03/17 16:12 94 Nasal Cannula 2.00 01/03/17 16:09 95 Nasal Cannula 2.00 01/03/17 16:00 98.2 96 18 139/71 (93) 95 01/03/17 16:00 92 01/03/17 15:00 88 01/03/17 14:00 100 01/03/17 13:00 96 01/03/17 12:05 97.0 93 18 121/66 (84) 99 01/03/17 12:00 90 01/03/17 11:56 99 Nasal Cannula 2.00 01/03/17 11:00 94 01/03/17 10:00 94 I/O 01/03/17 01/03/17 01/03/17 01/04/17 01/04/17 01/04/17 07:00 15:00 23:00 07:00 15:00 23:00 Intake Total 440 ml 360 ml 1070 ml Output Total 425 ml 850 ml Balance 15 ml 360 ml 220 ml Intake Oral 240 ml 720 ml IV Total 200 ml 360 ml 350 ml Output Urine Total 425 ml 850 ml # Bowel Movements 1 1 Result Diagram: 01/02/17 0603 01/02/17 0603 Imaging Last Impressions Chest X-Ray 01/04/17 0600 Signed Impressions: Service Date/Time: Wednesday, January 04, 2017 05:46 - CONCLUSION: No acute cardiopulmonary abnormality is identified. The left basilar opacity documented previously has resolved. Og Miranda MD CT Angiography 12/29/16 0000 Signed Impressions: Service Date/Time: December 01:02 - CONCLUSION: 1. Negative for pulmonary embolus. 2. Esophageal stent present with abnormal soft tissue in the mediastinum around the esophageal stent. 3. Stable 2.3 cm nodule upper left lung. 4. Development of bilateral pleural effusions, left greater than right with partial loculation on the left side and compressive atelectasis in both lungs. Tio Espinoza MD GI Procedure 12/24/16 1119 Signed Impressions: Service Date/Time: Saturday, December 24, 2016 11:24 - CONCLUSION: 1. Esophageal stent in excellent position. Clifford Machado MD Upper GI Series 12/23/16 0000 Signed Impressions: Service Date/Time: December 09:22 - CONCLUSION: 1. No evidence of fistula or obstruction. 2. Small diverticulum along the distal esophagus. Louie Conrad MD Abdomen/Pelvis CT 12/10/16 0000 Signed Impressions: Service Date/Time: Saturday, December 10, 2016 20:17 - CONCLUSION: 1. Focal thickening of the left rectus muscle with sinus tract extending from the lumen of the stomach into the rectus, presumably at site of prior percutaneous gastrostomy. 2. Moderate-sized left pleural effusion. No evidence of ascites. 3. 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 4. Sigmoid diverticulosis without radiographic evidence of diverticulitis. Armando Harrington MD Procedures 12/17/2016 EGD with clip placement Other Results Laboratory Tests Test 12/10/16 13:00 12/11/16 05:16 12/12/16 07:20 12/23/16 07:00 Activated Partial Thromboplast Time 27.9 SEC Lipase 48 U/L Lactic Acid Level 1.3 mmol/L Differential Total Cells Counted 100 Neutrophils % (Manual) 80 % Band Neutrophils % 2 % Lymphocytes % 8 % Monocytes % 3 % Eosinophils % 5 % Neutrophils # (Manual) 9.5 TH/MM3 Metamyelocytes 2 % Platelet Estimate NORMAL Platelet Morphology Comment NORMAL Haptoglobin 225 MG/DL Prothrombin Time 11.1 SEC Prothromb Time International Ratio 1.0 RATIO Iron Level 31 MCG/DL Total Iron Binding Capacity 188 MCG/DL Percent Iron Saturation 16.5 % Ferritin 70 NG/ML Direct Bilirubin 0.1 MG/DL Indirect Bilirubin 0.3 MG/DL Lactate Dehydrogenase 133 U/L Vitamin B12 Level 692 PG/ML Red Blood Cell Folate 732 Test 12/25/16 06:04 12/25/16 12:30 12/27/16 06:45 12/29/16 21:45 Protein Corrected Calcium 7.9 MG/DL Ionized Calcium 5.0 mg/dL Blood Urea Nitrogen 12 MG/DL Creatinine 0.38 MG/DL Random Glucose 95 MG/DL Total Protein 5.6 GM/DL Albumin 1.7 GM/DL Calcium Level 7.9 MG/DL Phosphorus Level 2.5 MG/DL Magnesium Level 1.9 MG/DL Alkaline Phosphatase 102 U/L Aspartate Amino Transf (AST/SGOT) 15 U/L Alanine Aminotransferase (ALT/SGPT) 12 U/L Total Bilirubin 0.4 MG/DL Sodium Level 139 MEQ/L Potassium Level 3.2 MEQ/L Chloride Level 104 MEQ/L Carbon Dioxide Level 28.3 MEQ/L Nasal Screen MRSA (PCR) MRSA NOT DETECTED Test 12/30/16 10:41 12/30/16 13:46 12/31/16 05:10 12/31/16 06:10 B-Type Natriuretic Peptide 371 PG/ML Total Creatine Kinase 133 U/L Creatine Kinase MB 1.5 NG/ML Troponin I 0.03 NG/ML Blood Gas Puncture Site LT RADIAL Blood Gas Patient Temperature 98.6 Blood Gas HCO3 29 mmol/L Blood Gas Base Excess 4.8 mmol/L Blood Gas Oxygen Saturation 91 % Arterial Blood pH 7.42 Arterial Blood Partial Pressure CO2 46 mmHg Arterial Blood Partial Pressure O2 71 mmHg Arterial Blood Oxygen Content 14.4 Vol % Arterial Blood Carboxyhemoglobin 1.9 % Arterial Blood Methemoglobin 1.0 % Blood Gas Hemoglobin 11.2 G/DL Oxygen Delivery Device HI JORJE NC Blood Gas Liter Flow 15 L/M Blood Gas Inspired Oxygen 34 % Blood Urea Nitrogen 20 MG/DL Creatinine 0.69 MG/DL Random Glucose 107 MG/DL Total Protein 6.1 GM/DL Albumin 1.9 GM/DL Calcium Level 7.5 MG/DL Alkaline Phosphatase 127 U/L Aspartate Amino Transf (AST/SGOT) 23 U/L Alanine Aminotransferase (ALT/SGPT) 16 U/L Total Bilirubin 0.3 MG/DL Sodium Level 139 MEQ/L Potassium Level 3.2 MEQ/L Chloride Level 102 MEQ/L Carbon Dioxide Level 28.7 MEQ/L Test 01/01/17 15:45 01/02/17 06:03 Vancomycin Level Trough 32.0 MCG/ML White Blood Count 9.5 TH/MM3 Red Blood Count 3.84 MIL/MM3 Hemoglobin 10.6 GM/DL Hematocrit 33.3 % Mean Corpuscular Volume 86.8 FL Mean Corpuscular Hemoglobin 27.7 PG Mean Corpuscular Hemoglobin Concent 31.9 % Red Cell Distribution Width 21.7 % Platelet Count 247 TH/MM3 Mean Platelet Volume 9.1 FL Neutrophils (%) (Auto) 85.2 % Lymphocytes (%) (Auto) 11.2 % Monocytes (%) (Auto) 3.4 % Eosinophils (%) (Auto) 0.1 % Basophils (%) (Auto) 0.1 % Neutrophils # (Auto) 8.1 TH/MM3 Lymphocytes # (Auto) 1.1 TH/MM3 Monocytes # (Auto) 0.3 TH/MM3 Eosinophils # (Auto) 0.0 TH/MM3 Basophils # (Auto) 0.0 TH/MM3 CBC Comment DIFF FINAL Differential Comment Blood Urea Nitrogen 31 MG/DL Creatinine 0.73 MG/DL Random Glucose 89 MG/DL Calcium Level 8.4 MG/DL Sodium Level 140 MEQ/L Potassium Level 4.1 MEQ/L Chloride Level 103 MEQ/L Carbon Dioxide Level 28.4 MEQ/L Anion Gap 9 MEQ/L Estimat Glomerular Filtration Rate 77 ML/MIN Random Vancomycin Level 18.8 COMMENT Objective Remarks GENERAL: AOx3, NAD. SKIN: Warm and dry. HEAD: Normocephalic. EYES: No scleral icterus. No injection or drainage. NECK: Supple, trachea midline. No JVD or lymphadenopathy. CARDIOVASCULAR: Regular rate and rhythm without murmurs, gallops, or rubs. RESPIRATORY: Breath sounds equal bilaterally. No accessory muscle use. Right upper chest Port removed. GASTROINTESTINAL: soft non tender, Dressed. MUSCULOSKELETAL: No cyanosis, or edema. BACK: Nontender without obvious deformity. No CVA tenderness. Medications and IVs Current Medications Medications (Trade) Dose Ordered Sig/Alla Route Start Time Stop Time Status Last Admin (NS Flush) 2 ml BID IV FLUSH 12/10/16 21:00 01/04/17 08:32 (Lovenox Inj) 40 mg Q24H SQ 12/10/16 22:45 Future hold 01/02/17 21:55 (Elavil) 25 mg HS PO 12/11/16 21:00 01/03/17 21:03 (Synthroid) 75 mcg DAILY@07 PO 12/11/16 07:00 01/04/17 05:54 (Prinivil) 10 mg DAILY PO 12/11/16 09:00 01/04/17 08:31 (Dilaudid Pf Inj) 1 mg Q3H PRN IV PUSH 12/12/16 14:45 01/01/17 04:58 (Mycostatin Liq) 5 ml QID SWISH-SWAL 12/19/16 18:00 01/04/17 08:31 Miscellaneous Information 1 Q3D T-DERMAL 12/20/16 18:00 12/26/16 18:00 (Robitussin Liq) 600 mg BID PO 12/21/16 09:45 12/30/16 21:00 Patient Own Medication PT OWN MED: TRANXENE-T (CLORAZEPA... TID PO 12/23/16 13:00 Future hold 01/04/17 08:31 (Protonix) 40 mg Q12HR PO 12/24/16 12:45 01/04/17 08:31 (Zofran Inj) 4 mg Q4HR PRN IV PUSH 12/24/16 18:00 01/02/17 12:59 (Oramorph Sr) 15 mg BID PO 12/28/16 21:00 01/04/17 08:31 (Roxicodone) 5 mg Q4H PRN PO 12/28/16 14:30 01/03/17 21:02 Pharmacy Profile Note 0 ml @ 0 mls/hr UNSCH OTHER 12/30/16 02:30 (Duoneb Neb) 1 ampule Q2HR NEB PRN INH 12/30/16 12:15 (Lasix Inj) 20 mg DAILY IV PUSH 12/31/16 22:45 01/04/17 08:32 (SoluMEDROL INJ) 40 mg Q12HR IV PUSH 01/01/17 09:00 01/04/17 08:32 (NS Flush) 5 ml Q21D IV FLUSH 01/02/17 05:00 01/02/17 05:55 (Heparin Central Flush) 500 units Q21D IV FLUSH 01/02/17 05:00 01/02/17 05:55 (NS Flush) 5 ml UNSCH PRN IV FLUSH 01/02/17 05:00 01/02/17 16:50 (Heparin Central Flush) 250 units UNSCH PRN IV FLUSH 01/02/17 05:00 01/03/17 04:20 Vancomycin HCl 1250 mg/Sodium Chloride 262.5 ml @ 250 mls/hr Q24H IV 01/02/17 10:00 01/03/17 10:50 Miscellaneous Information SPECIFIC LAB TO BE ERON... ONCE ONCE .XX 01/04/17 09:45 01/04/17 09:46 A/P Problem List: (1) 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 Valdovinos is a 76 year old female with a history of NSCLC, radiation esophagitis presents to the ED due to complication of the PEG tube insertion site. PEG Tube was removed recently due to large leakage. 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 - Acute respiratory failure - hypoxic - Probable pulmonary edema - COPD exacerbation - Patient was under ICU service, improved with diuresis. - Maintain O2 via Nasal Cannula to keep O2 sat > 90%. - Continue IV steroid, DuoNeb. 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 - s/p esophageal stent placement by IR on 12/24/2016, PEG tube placement by GI on 12/24/2016. - Continue IV Dilaudid PRN. - Patient is off TPN and currently tolerating oral feeding well. - Gram positive Bacteremia - ID following. Patient is currently on Vancomycin - Repeat Blood cultures from 12/31/2016 Negative - History of Non-small cell lung cancer - s/p chemo, radiation therapy. - Hypokalemia - continue replacement patient refused IV replacement switched to by mouth. - Hypothyroidism - continue Levothyroxine 75mcg Qday. - Hypertension - continue Lisinopril 10mg Qday. BACTERMIA POSSIBLE PORT INFECTION DEFER TO ID, Port removed today. Full code. Lovenox. Discussed with RN. JOANNA Nicole Discharge Planning once cleared by specialists. Syed Mensah MD Jan 04, 2017 09:12
[2017-01-04] MEDS ORDERED: PHARMACY ORDERED LAB ONE (09:45)
[2017-01-04 10:53] LABS: AUTOMATED NEUTROPHIL # 10.4 TH/MM3 (1.8-7.7); BASOPHIL % 0.2 % (0.0-2.0); EOSINOPHIL # 0.1 TH/MM3 (0-0.4); EOSINOPHIL % 0.5 % (0.0-4.0); HEMATOCRIT 44.7 % (35.0-46.0); LYMPH % 16.3 % (9.0-44.0); LYMPHOCYTE # 2.2 TH/MM3 (1.0-4.8); MEAN CELL VOLUME 86.4 FL (80.0-100.0); MEAN CORPUSCULAR HEMOGLOBIN 27.5 PG (27.0-34.0); MEAN CORPUSCULAR HGB CONC 31.8 % (32.0-36.0); MONO % 5.5 % (0.0-8.0); NEUT % 77.5 % (16.0-70.0); PLATELET COUNT 366 TH/MM3 (150-450); RED BLOOD COUNT 5.18 MIL/MM3 (4.00-5.30); RED CELL DISTRIBUTION WIDTH 21.9 % (11.6-17.2); WHITE BLOOD COUNT 13.4 TH/MM3 (4.0-11.0)
[2017-01-04 10:59] LABS: HEMO FLAGS AUTO DIFF
[2017-01-04 11:09] LABS: ANION GAP 12 MEQ/L (5-15); AST (GOT) 27 U/L (15-37); BICARBONATE 29.8 MEQ/L (21.0-32.0); BLOOD UREA NITROGEN 32 MG/DL (7-18); CHLORIDE 99 MEQ/L (98-107); GLOMERULAR FILTRATION RATE 60 ML/MIN (>89); MAGNESIUM 2.5 MG/DL (1.5-2.5); SODIUM (NA) 141 MEQ/L (136-145)
[2017-01-04 11:35] LABS: ALKALINE PHOSPHATASE 187 U/L (45-117); ALT (GPT) 45 U/L (10-53); FREE T4 1.25 NG/DL (0.76-1.46); TOTAL BILIRUBIN ADULT 0.5 MG/DL (0.2-1.0)
[2017-01-04 11:37] LABS: POTASSIUM 2.9 MEQ/L (3.5-5.1)
[2017-01-04] MEDS ORDERED: fentaNYL CITRATE 250 MCG/5 ML AMP ONE (11:41)
[2017-01-04] MEDS ORDERED: MIDAZOLAM HCL 2 MG/2 ML VIAL ONE (11:41)
[2017-01-04] MEDS ORDERED: LIDOCAINE 1%/EPINEPHrine 1:200,000 PF SOLN 30 ML VIAL ONE (11:44)
[2017-01-04] MEDS: VANCOMYCIN INJ 1,250 MG in SODIUM CHLOR 0.9% 250 ML INJ 250 ML IV SCH (11:45)
[2017-01-04 11:51] LABS: EOSINOPHILS 1 % (0-4); MYELOCYTES 2 % (0-0); NEUTROPHIL # MANUAL DIFF 11.5 TH/MM3 (1.8-7.7); PLATELET ESTIMATE SMEAR NORMAL (NORMAL); PLATELET MORPHOLOGY NORMAL (NORMAL); POLYS (SEG NEUTROPHILS) 84 % (16-70); SCAN/DIFF FINAL DIFF MANUAL; WBC DIFF SAMPLE 100
--- NOTE | 2017-01-04 11:58 | PD.ONC.PN ---
Subjective Subjective Remarks Breathing much better Having infusaport removed today Objective Data Date Time Temp Pulse Resp B/P (MAP) Pulse Ox O2 Delivery O2 Flow Rate FiO2 01/04/17 08:31 93 Nasal Cannula 2.00 01/04/17 08:00 Nasal Cannula 2.00 01/04/17 08:00 98.0 84 20 140/76 (97) 92 01/04/17 03:53 97.9 94 18 132/50 (77) 96 01/03/17 20:59 97.4 91 16 136/53 (80) 95 01/03/17 18:02 102 01/03/17 17:00 94 01/03/17 16:12 94 Nasal Cannula 2.00 01/03/17 16:09 95 Nasal Cannula 2.00 01/03/17 16:00 98.2 96 18 139/71 (93) 95 01/03/17 16:00 92 01/03/17 15:00 88 01/03/17 14:00 100 01/03/17 13:00 96 01/03/17 12:05 97.0 93 18 121/66 (84) 99 01/03/17 12:00 90 01/03/17 11:56 99 Nasal Cannula 2.00 Result Diagram: 01/04/17 0946 01/04/17 0946 Laboratory Results Laboratory Tests Test 01/04/17 09:46 White Blood Count 13.4 TH/MM3 Red Blood Count 5.18 MIL/MM3 Hemoglobin 14.2 GM/DL Hematocrit 44.7 % Mean Corpuscular Volume 86.4 FL Mean Corpuscular Hemoglobin 27.5 PG Mean Corpuscular Hemoglobin Concent 31.8 % Red Cell Distribution Width 21.9 % Platelet Count 366 TH/MM3 Mean Platelet Volume 8.9 FL Neutrophils (%) (Auto) 77.5 % Lymphocytes (%) (Auto) 16.3 % Monocytes (%) (Auto) 5.5 % Eosinophils (%) (Auto) 0.5 % Basophils (%) (Auto) 0.2 % Neutrophils # (Auto) 10.4 TH/MM3 Lymphocytes # (Auto) 2.2 TH/MM3 Monocytes # (Auto) 0.7 TH/MM3 Eosinophils # (Auto) 0.1 TH/MM3 Basophils # (Auto) 0.0 TH/MM3 CBC Comment AUTO DIFF Blood Urea Nitrogen 32 MG/DL Creatinine 0.91 MG/DL Random Glucose 97 MG/DL Total Protein 8.1 GM/DL Albumin 2.9 GM/DL Calcium Level 8.9 MG/DL Phosphorus Level 3.3 MG/DL Magnesium Level 2.5 MG/DL Alkaline Phosphatase 187 U/L Aspartate Amino Transf (AST/SGOT) 27 U/L Alanine Aminotransferase (ALT/SGPT) 45 U/L Total Bilirubin 0.5 MG/DL Sodium Level 141 MEQ/L Potassium Level 2.9 MEQ/L Chloride Level 99 MEQ/L Carbon Dioxide Level 29.8 MEQ/L Anion Gap 12 MEQ/L Estimat Glomerular Filtration Rate 60 ML/MIN Free Thyroxine 1.25 NG/DL Thyroid Stimulating Hormone 3rd Gen 8.570 uIU/ML Culture Results Microbiology Date/Time Source Procedure Growth Status 01/02/17 19:02 Blood Peripheral Aerobic Blood Culture - Preliminary NO GROWTH IN 2 DAYS Resulted 01/02/17 19:02 Blood Peripheral Anaerobic Blood Culture - Preliminary NO GROWTH IN 2 DAYS Resulted 01/02/17 18:52 Blood Peripheral Aerobic Blood Culture - Preliminary NO GROWTH IN 2 DAYS Resulted 01/02/17 18:52 Blood Peripheral Anaerobic Blood Culture - Preliminary NO GROWTH IN 2 DAYS Resulted Imaging Studies Last 24 hours Impressions Chest X-Ray 01/04/17 0600 Signed Impressions: Service Date/Time: Wednesday, January 04, 2017 05:46 - CONCLUSION: No acute cardiopulmonary abnormality is identified. The left basilar opacity documented previously has resolved. Og Miranda MD Administered Medications Medications (Trade) Dose Ordered Sig/Alla Route PRN Reason Start Time Stop Time Status Last Admin Dose Admin Sodium Chloride (NS Flush) 2 ml BID IV FLUSH 12/10/16 21:00 01/04/17 08:32 Enoxaparin Sodium (Lovenox Inj) 40 mg Q24H SQ 12/10/16 22:45 Future hold 01/02/17 21:55 Amitriptyline HCl (Elavil) 25 mg HS PO 12/11/16 21:00 01/03/17 21:03 Levothyroxine Sodium (Synthroid) 75 mcg DAILY@07 PO 12/11/16 07:00 01/04/17 05:54 Lisinopril (Prinivil) 10 mg DAILY PO 12/11/16 09:00 01/04/17 08:31 Hydromorphone HCl (Dilaudid Pf Inj) 1 mg Q3H PRN IV PUSH PAIN SCALE 5 TO 10 12/12/16 14:45 01/01/17 04:58 Nystatin (Mycostatin Liq) 5 ml QID SWISH-SWAL 12/19/16 18:00 01/04/17 08:31 Miscellaneous Information 1 Q3D T-DERMAL 12/20/16 18:00 12/26/16 18:00 Guaifenesin (Robitussin Liq) 600 mg BID PO 12/21/16 09:45 12/30/16 21:00 Patient Own Medication PT OWN MED: TRANXENE-T (CLORAZEPA... TID PO 12/23/16 13:00 Future hold 01/04/17 08:31 Pantoprazole Sodium (Protonix) 40 mg Q12HR PO 12/24/16 12:45 01/04/17 08:31 Ondansetron HCl (Zofran Inj) 4 mg Q4HR PRN IV PUSH N/V 12/24/16 18:00 01/02/17 12:59 Morphine Sulfate (Oramorph Sr) 15 mg BID PO 12/28/16 21:00 01/04/17 08:31 Oxycodone HCl (Roxicodone) 5 mg Q4H PRN PO PAIN SCALE 1 TO 4 12/28/16 14:30 01/03/17 21:02 Furosemide (Lasix Inj) 20 mg DAILY IV PUSH 12/31/16 22:45 01/04/17 08:32 Methylprednisolone Sodium Succinate (SoluMEDROL INJ) 40 mg Q12HR IV PUSH 01/01/17 09:00 01/04/17 08:32 Sodium Chloride (NS Flush) 5 ml Q21D IV FLUSH 01/02/17 05:00 01/02/17 05:55 Heparin Sodium (Porcine) (Heparin Central Flush) 500 units Q21D IV FLUSH 01/02/17 05:00 01/02/17 05:55 Sodium Chloride (NS Flush) 5 ml UNSCH PRN IV FLUSH SEE LABEL COMMENTS 01/02/17 05:00 01/02/17 16:50 Heparin Sodium (Porcine) (Heparin Central Flush) 250 units UNSCH PRN IV FLUSH FLUSH AFTER USING IV ACCESS 01/02/17 05:00 01/03/17 04:20 Vancomycin HCl 1250 mg/Sodium Chloride 262.5 ml @ 250 mls/hr Q24H IV 01/02/17 10:00 01/03/17 10:50 Objective Remarks GENERAL: Elderly female upright in bed. SKIN: Warm and dry. HEAD: Normocephalic. EYES: No injection or drainage. NECK: Supple, trachea midline. CARDIOVASCULAR: Regular rate and rhythm RESPIRATORY: Clear anteriorly. Breathing unlabored at rest on high flow O2 GASTROINTESTINAL: Abdomen soft, non-distended. PEG tube clamped. EXTREMITIES: No cyanosis. No edema. NEUROLOGICAL: Normal speech. Moving all extremities. No obvious deficit. Assessment/Plan Problem List: (1) Non-small cell lung cancer (NSCLC) ICD Codes: C34.90 - Malignant neoplasm of unspecified part of unspecified bronchus or lung Status: Acute Plan: --further treatment in clinic once improvement in current conditions History: diagnosed via CT-guided biopsy in June of 2016. PET/CT scan confirmed this disease to be Stage III-B. --received concurrent chemotherapy and radiation treatments. --had a total of four cycles of chemotherapy. --Follow-up imaging showed a residual lung lesion in the left upper lobe which was 1.8 x 2.4 x 3.8 cm. The patient was recommended two additional consolidation treatments but unfortunately due to her decline in performance status, she was not able to be given this treatment. (2) Dysphagia ICD Codes: R13.10 - Dysphagia, unspecified Status: Acute Plan: -- TPN off. -- Oral nutrition improving History --presents to [facility] with recurrent symptoms from her radiation esophagitis. --Due to significant dysphagia a PEG tube was placed. --had complications from the PEG tube insertion site. --++large amount of leakage and a copious amount of purulent drainage from the PEG tube insertion site. +concern for abdominal wall fistula. --EGD and stent placement and PEG placement on 12.24-->EGD showed Radiation esophagitis, Esophageal stricture, Gastrocutaneous fistula, Gastric ulcers --upper GI series, 12/23-->No evidence of fistula or obstruction. Small diverticulum along the distal esophagus. (3) Normocytic anemia ICD Codes: D64.9 - Anemia, unspecified Status: Acute Plan: monitor and transfuse as needed History: --patient became severely anemic with a hemoglobin in the 6 range and she was given 2 units of packed red blood cells. --no evidence of hemolysis. --likely losing blood through the GI tract. --also a component of malnutrition. --currently being seen by GI and further workup is ongoing. --ordered daily IV iron x 3 treatments. (4) Pain ICD Codes: R52 - Pain, unspecified Status: Acute Plan: --on IV Dilaudid p.r.n. 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 currently getting wound care. --has also been evaluated by Surgery and there are no surgical plans at this time. Assessment 76y/o female with a history of [id number] lung cancer who was admitted to the hospital for complications from radiation esophagitis. h/o History of [id number] lung cancer, Stage III-B, status post concurrent chemotherapy and radiation treatment. Esophageal strictures status post dilatation x 4. Hypertension. Port placement. Lung biopsy. Hysterectomy. Tonsillectomy. PEG tube placement. Plan 1. Infusaport being removed today 2. Chest x-ray shows improvement; patient down to 1.5 L via nasal cannula 3. Blood cultures from 01/02 show no growth x 2 days 4. Per infectious disease, the patient will need IV antibiotics for 10 days from 01/02 if most current blood cultures remained negative Discussed with RN Attending Statement The exam, history, and the medical decision-making described in the above note were completed with the assistance of the mid-level provider. I reviewed and agree with the findings presented. I attest that I had a [id number] encounter with the patient on the same day, and personally performed and documented my assessment and findings in the medical record Isabel Navarro Jan 04, 2017 11:58 Montrell Montiel MD Jan 04, 2017 23:34
[2017-01-04] MEDS: POTASSIUM CHLOR 20 MEQ PREMIX 100 ML IV SCH ×2 (12:00→14:00)
[2017-01-04 12:43] LABS: HEMOGLOBIN A1b 1.5 %; HEMOGLOBIN Ao 86.9 %; HEMOGLOBIN P3 3.6 %
[2017-01-04] MEDS ORDERED: POTASSIUM CHLORIDE 20 MEQ CONTROLLED RELEASE TAB PO ONE ×2 (16:00→18:00)
[2017-01-04] MEDS: REMOVE OLD DURAGESIC (FENTANYL) PATCH T-DERMAL SCH (18:00)
[2017-01-04] MEDS: HYDROmorphone HCL PF 1 MG/ML VIAL IV PUSH PRN (21:23)
[2017-01-04] MEDS: AMITRIPTYLINE HCL 25 MG TAB PO SCH (21:31)
[2017-01-04] MEDS: ENOXAPARIN SODIUM 40 MG/0.4 ML SYRINGE SQ SCH (22:33)
[2017-01-05 02:30] VITALS: BP 133/72; PULSE 93; TEMP 97.6; O2SAT 97
[2017-01-05] MEDS: LEVOTHYROXINE SODIUM 75 MCG TAB PO SCH (06:48)
[2017-01-05 06:59] LABS: ALKALINE PHOSPHATASE 159 U/L (45-117); ALT (GPT) 39 U/L (10-53); ANION GAP 8 MEQ/L (5-15); AST (GOT) 24 U/L (15-37); AUTOMATED NEUTROPHIL # 11.1 TH/MM3 (1.8-7.7); BASOPHIL % 0.1 % (0.0-2.0); BICARBONATE 29.4 MEQ/L (21.0-32.0); BLOOD UREA NITROGEN 38 MG/DL (7-18); CHLORIDE 104 MEQ/L (98-107); GLOMERULAR FILTRATION RATE 65 ML/MIN (>89); HEMATOCRIT 40.5 % (35.0-46.0); LYMPH % 9.3 % (9.0-44.0); LYMPHOCYTE # 1.2 TH/MM3 (1.0-4.8); MEAN CELL VOLUME 87.1 FL (80.0-100.0); MEAN CORPUSCULAR HEMOGLOBIN 27.5 PG (27.0-34.0); MEAN CORPUSCULAR HGB CONC 31.6 % (32.0-36.0); MONO % 2.9 % (0.0-8.0); NEUT % 87.7 % (16.0-70.0); PLATELET COUNT 331 TH/MM3 (150-450); POTASSIUM 4.3 MEQ/L (3.5-5.1); RED BLOOD COUNT 4.66 MIL/MM3 (4.00-5.30); RED CELL DISTRIBUTION WIDTH 22.1 % (11.6-17.2); SODIUM (NA) 141 MEQ/L (136-145); TOTAL BILIRUBIN ADULT 0.4 MG/DL (0.2-1.0); WHITE BLOOD COUNT 12.6 TH/MM3 (4.0-11.0)
[2017-01-05 07:08] LABS: HEMO FLAGS AUTO DIFF
[2017-01-05 08:15] VITALS: BP 129/61; PULSE 87; RESP 16; TEMP 97.4; O2SAT 97
[2017-01-05] MEDS: NYSTATIN SUSP 500,000 U/5 ML CUP SWISH-SWAL SCH ×4 (08:34→21:57)
[2017-01-05] MEDS: methylPREDNISolone SOD SUCC 40 MG/1 ML VIAL IV PUSH SCH ×2 (08:34→21:57)
[2017-01-05] MEDS: FUROSEMIDE 20 MG/2 ML VIAL IV PUSH SCH ×2 (08:35→08:39)
[2017-01-05] MEDS: LISINOPRIL 10 MG TAB PO SCH (08:35)
[2017-01-05] MEDS: PANTOPRAZOLE SOD 40 MG DELAYED RELEASE TAB PO SCH ×2 (08:35→21:57)
[2017-01-05] MEDS: MORPHINE SULFATE 15 MG CONTROLLED RELEASE TAB PO SCH ×2 (08:35→21:57)
[2017-01-05] MEDS: [UNRECOGNIZED DRUG - OTHER] PO SCH ×3 (08:36→17:43)
[2017-01-05] MEDS: SODIUM CHLORIDE 0.9% FLUSH 10 ML FLUSH IV FLUSH SCH ×2 (08:36→21:00)
[2017-01-05] MEDS: CLORAZEPATE PO SCH ×3 (08:36→17:43)
[2017-01-05] MEDS: guaiFENesin SOLUTION 200 MG/10 ML CUP PO SCH ×2 (08:37→21:00)
[2017-01-05 09:06] LABS: MYELOCYTES 3 % (0-0); NEUTROPHIL # MANUAL DIFF 10.8 TH/MM3 (1.8-7.7); POLYS (SEG NEUTROPHILS) 83 % (16-70); WBC DIFF SAMPLE 100
[2017-01-05 09:07] LABS: PLATELET ESTIMATE SMEAR NORMAL (NORMAL); PLATELET MORPHOLOGY ENLARGED (NORMAL)
[2017-01-05 09:08] LABS: ACANTHOCYTES OCC (NORMAL); OVALOCYTES 1+ (NORMAL); SCAN/DIFF FINAL DIFF MANUAL
[2017-01-05] MEDS: VANCOMYCIN INJ 1,250 MG in SODIUM CHLOR 0.9% 250 ML INJ 250 ML IV SCH (10:00)
--- NOTE | 2017-01-05 10:29 | HHI.PR ---
Subjective Remarks Ms. Valdovinos is a 76 year old female with a history of NSCLC, radiation esophagitis presents to the ED due to complication of the PEG tube insertion site. PEG Tube was removed recently due to large leakage. 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 at this time status post Right Port removal, her Daughter in the room Miss Juanita Sullivan. states she does not want to take replacement for Potassium IV will continue Potassium by mouth. 01/05: no complaint but wants her diuretic to be decreased to half dose, was decreased, also seen PEG tube area with high drainage. GI specialist following. No nausea, vomit or diarrhea. Objective Vital Signs Date Time Temp Pulse Resp B/P (MAP) Pulse Ox O2 Delivery O2 Flow Rate FiO2 01/05/17 08:15 97.4 87 16 129/61 (83) 97 01/05/17 02:30 97.6 93 133/72 (92) 97 01/04/17 21:20 Nasal Cannula 2.00 01/04/17 20:00 98.8 97 20 138/57 (84) 97 01/04/17 17:49 99 Nasal Cannula 2.00 01/04/17 16:00 97.5 93 20 123/59 (80) 99 01/04/17 13:15 82 16 144/64 (90) 96 01/04/17 12:45 84 18 155/70 (98) 94 01/04/17 12:30 97.7 86 19 134/64 (87) 94 I/O 01/04/17 01/04/17 01/04/17 01/05/17 01/05/17 01/05/17 07:00 15:00 23:00 07:00 15:00 23:00 # Voids 4 # Bowel Movements 0 Result Diagram: 01/05/1752201/05/17 05 Imaging Last Impressions Chest X-Ray 01/04/17 0600 Signed Impressions: Service Date/Time: Wednesday, January 04, 2017 05:46 - CONCLUSION: No acute cardiopulmonary abnormality is identified. The left basilar opacity documented previously has resolved. Og Miranda MD CT Angiography 12/29/16 0000 Signed Impressions: Service Date/Time: December 01:02 - CONCLUSION: 1. Negative for pulmonary embolus. 2. Esophageal stent present with abnormal soft tissue in the mediastinum around the esophageal stent. 3. Stable 2.3 cm nodule upper left lung. 4. Development of bilateral pleural effusions, left greater than right with partial loculation on the left side and compressive atelectasis in both lungs. Tio Espinoza MD GI Procedure 12/24/16 1119 Signed Impressions: Service Date/Time: Saturday, December 24, 2016 11:24 - CONCLUSION: 1. Esophageal stent in excellent position. Clifford Machado MD [facility] 12/23/16 0000 Signed Impressions: Service Date/Time: December 09:22 - CONCLUSION: 1. No evidence of fistula or obstruction. 2. Small diverticulum along the distal esophagus. Louie Conrad MD Abdomen/Pelvis CT 12/10/16 0000 Signed Impressions: Service Date/Time: Saturday, December 10, 2016 20:17 - CONCLUSION: 1. Focal thickening of the left rectus muscle with sinus tract extending from the lumen of the stomach into the rectus, presumably at site of prior percutaneous gastrostomy. 2. Moderate-sized left pleural effusion. No evidence of ascites. 3. 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 4. Sigmoid diverticulosis without radiographic evidence of diverticulitis. Armando Harrington MD Procedures 12/17/2016 EGD with clip placement Other Results Laboratory Tests Test 12/10/16 13:00 12/11/16 05:16 12/12/16 07:20 12/23/16 07:00 Activated Partial Thromboplast Time 27.9 SEC Lipase 48 U/L Lactic Acid Level 1.3 mmol/L Band Neutrophils % 2 % Metamyelocytes 2 % Haptoglobin 225 MG/DL Prothrombin Time 11.1 SEC Prothromb Time International Ratio 1.0 RATIO Iron Level 31 MCG/DL Total Iron Binding Capacity 188 MCG/DL Percent Iron Saturation 16.5 % Ferritin 70 NG/ML Direct Bilirubin 0.1 MG/DL Indirect Bilirubin 0.3 MG/DL Lactate Dehydrogenase 133 U/L Vitamin B12 Level 692 PG/ML Red Blood Cell Folate 732 Test 12/25/16 06:04 12/25/16 12:30 12/29/16 21:45 12/30/16 10:41 Protein Corrected Calcium 7.9 MG/DL Ionized Calcium 5.0 mg/dL Nasal Screen MRSA (PCR) MRSA NOT DETECTED B-Type Natriuretic Peptide 371 PG/ML Test 12/30/16 13:46 12/31/16 05:10 01/02/17 06:03 01/04/17 09:46 Total Creatine Kinase 133 U/L Creatine Kinase MB 1.5 NG/ML Troponin I 0.03 NG/ML Blood Gas Puncture Site LT RADIAL Blood Gas Patient Temperature 98.6 Blood Gas HCO3 29 mmol/L Blood Gas Base Excess 4.8 mmol/L Blood Gas Oxygen Saturation 91 % Arterial Blood pH 7.42 Arterial Blood Partial Pressure CO2 46 mmHg Arterial Blood Partial Pressure O2 71 mmHg Arterial Blood Oxygen Content 14.4 Vol % Arterial Blood Carboxyhemoglobin 1.9 % Arterial Blood Methemoglobin 1.0 % Blood Gas Hemoglobin 11.2 G/DL Oxygen Delivery Device HI JORJE NC Blood Gas Liter Flow 15 L/M Blood Gas Inspired Oxygen 34 % Random Vancomycin Level 18.8 COMMENT Eosinophils % 1 % Hemoglobin A1c 4.8 % Blood Urea Nitrogen 32 MG/DL Creatinine 0.91 MG/DL Random Glucose 97 MG/DL Total Protein 8.1 GM/DL Albumin 2.9 GM/DL Calcium Level 8.9 MG/DL Phosphorus Level 3.3 MG/DL Magnesium Level 2.5 MG/DL Alkaline Phosphatase 187 U/L Aspartate Amino Transf (AST/SGOT) 27 U/L Alanine Aminotransferase (ALT/SGPT) 45 U/L Total Bilirubin 0.5 MG/DL Sodium Level 141 MEQ/L Potassium Level 2.9 MEQ/L Chloride Level 99 MEQ/L Carbon Dioxide Level 29.8 MEQ/L Free Thyroxine 1.25 NG/DL Thyroid Stimulating Hormone 3rd Gen 8.570 uIU/ML Vancomycin Level Trough 19.2 MCG/ML Test 01/05/17 05:23 White Blood Count 12.6 TH/MM3 Red Blood Count 4.66 MIL/MM3 Hemoglobin 12.8 GM/DL Hematocrit 40.5 % Mean Corpuscular Volume 87.1 FL Mean Corpuscular Hemoglobin 27.5 PG Mean Corpuscular Hemoglobin Concent 31.6 % Red Cell Distribution Width 22.1 % Platelet Count 331 TH/MM3 Mean Platelet Volume 8.6 FL Neutrophils (%) (Auto) 87.7 % Lymphocytes (%) (Auto) 9.3 % Monocytes (%) (Auto) 2.9 % Eosinophils (%) (Auto) 0.0 % Basophils (%) (Auto) 0.1 % Neutrophils # (Auto) 11.1 TH/MM3 Lymphocytes # (Auto) 1.2 TH/MM3 Monocytes # (Auto) 0.4 TH/MM3 Eosinophils # (Auto) 0.0 TH/MM3 Basophils # (Auto) 0.0 TH/MM3 CBC Comment AUTO DIFF Differential Total Cells Counted 100 Neutrophils % (Manual) 83 % Lymphocytes % 8 % Monocytes % 6 % Neutrophils # (Manual) 10.8 TH/MM3 Myelocytes 3 % Differential Comment FINAL DIFF MANUAL Platelet Estimate NORMAL Platelet Morphology Comment ENLARGED Ovalocytes 1+ Acanthocytes OCC Blood Urea Nitrogen 38 MG/DL Creatinine 0.85 MG/DL Random Glucose 141 MG/DL Total Protein 7.3 GM/DL Albumin 2.7 GM/DL Calcium Level 8.8 MG/DL Alkaline Phosphatase 159 U/L Aspartate Amino Transf (AST/SGOT) 24 U/L Alanine Aminotransferase (ALT/SGPT) 39 U/L Total Bilirubin 0.4 MG/DL Sodium Level 141 MEQ/L Potassium Level 4.3 MEQ/L Chloride Level 104 MEQ/L Carbon Dioxide Level 29.4 MEQ/L Anion Gap 8 MEQ/L Estimat Glomerular Filtration Rate 65 ML/MIN Objective Remarks GENERAL: AOx3, NAD. SKIN: Warm and dry. HEAD: Normocephalic. EYES: No scleral icterus. No injection or drainage. NECK: Supple, trachea midline. No JVD or lymphadenopathy. CARDIOVASCULAR: Regular rate and rhythm without murmurs, gallops, or rubs. RESPIRATORY: Breath sounds equal bilaterally. No accessory muscle use. Right upper chest Port removed. GASTROINTESTINAL: soft non tender, high drainage from PEG tube area. MUSCULOSKELETAL: No cyanosis, or edema. BACK: Nontender without obvious deformity. No CVA tenderness. Medications and IVs Current Medications Medications (Trade) Dose Ordered Sig/Alla Route Start Time Stop Time Status Last Admin (NS Flush) 2 ml BID IV FLUSH 12/10/16 21:00 01/05/17 08:36 (Lovenox Inj) 40 mg Q24H SQ 12/10/16 22:45 Future hold 01/04/17 22:33 (Elavil) 25 mg HS PO 12/11/16 21:00 01/04/17 21:31 (Synthroid) 75 mcg DAILY@07 PO 12/11/16 07:00 01/05/17 06:48 (Prinivil) 10 mg DAILY PO 12/11/16 09:00 01/05/17 08:35 (Dilaudid Pf Inj) 1 mg Q3H PRN IV PUSH 12/12/16 14:45 01/04/17 21:23 (Mycostatin Liq) 5 ml QID SWISH-SWAL 12/19/16 18:00 01/05/17 08:34 Miscellaneous Information 1 Q3D T-DERMAL 12/20/16 18:00 12/26/16 18:00 (Robitussin Liq) 600 mg BID PO 12/21/16 09:45 12/30/16 21:00 Patient Own Medication PT OWN MED: TRANXENE-T (CLORAZEPA... TID PO 12/23/16 13:00 Future hold 01/05/17 08:36 (Protonix) 40 mg Q12HR PO 12/24/16 12:45 01/05/17 08:35 (Zofran Inj) 4 mg Q4HR PRN IV PUSH 12/24/16 18:00 01/02/17 12:59 (Oramorph Sr) 15 mg BID PO 12/28/16 21:00 01/05/17 08:35 (Roxicodone) 5 mg Q4H PRN PO 12/28/16 14:30 01/05/17 03:05 Pharmacy Profile Note 0 ml @ 0 mls/hr UNSCH OTHER 12/30/16 02:30 (Duoneb Neb) 1 ampule Q2HR NEB PRN INH 12/30/16 12:15 (Lasix Inj) 20 mg DAILY IV PUSH 12/31/16 22:45 01/04/17 08:32 (SoluMEDROL INJ) 40 mg Q12HR IV PUSH 01/01/17 09:00 01/05/17 08:34 (NS Flush) 5 ml Q21D IV FLUSH 01/02/17 05:00 01/02/17 05:55 (Heparin Central Flush) 500 units Q21D IV FLUSH 01/02/17 05:00 01/02/17 05:55 (NS Flush) 5 ml UNSCH PRN IV FLUSH 01/02/17 05:00 01/02/17 16:50 (Heparin Central Flush) 250 units UNSCH PRN IV FLUSH 01/02/17 05:00 01/03/17 04:20 Vancomycin HCl 1250 mg/Sodium Chloride 262.5 ml @ 250 mls/hr Q24H IV 01/02/17 10:00 01/05/17 10:00 Miscellaneous Information SPECIFIC LAB TO BE DRAWN:VANCOMYCIN TROUGH DATE TO... 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 Valdovinos is a 76 year old female with a history of NSCLC, radiation esophagitis presents to the ED due to complication of the PEG tube insertion site. PEG Tube was removed recently due to large leakage. 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 - Acute respiratory failure - hypoxic - Probable pulmonary edema - COPD exacerbation - Patient was under ICU service, improved with diuresis. - Maintain O2 via Nasal Cannula to keep O2 sat > 90%. - Continue IV steroid, DuoNeb. - Abdominal wall fistula high drainage from the area. - Radiation induced esophageal stricture - Likely a complication of PEG Tube placement. - s/p esophageal stent placement by IR on 12/24/2016, PEG tube placement by GI on 12/24/2016. - Continue IV Dilaudid PRN. - Patient is off TPN and currently tolerating oral feeding well. - Gram positive Bacteremia - ID following. Patient is currently on Vancomycin, Port removed 01/04/17 - Repeat Blood cultures from 12/31/2016 Negative - History of Non-small cell lung cancer - s/p chemo, radiation therapy. - Hypokalemia - replaced today 4.3 - Hypothyroidism - continue Levothyroxine 75mcg Qday. - Hypertension - continue Lisinopril 10mg Qday. Full code. Lovenox. Discussed with RN. JOANNA Nicole Discharge Planning once cleared by specialists. Syed Mensah MD Jan 05, 2017 10:29
[2017-01-05] MEDS: FUROSEMIDE 20 MG TAB PO SCH (12:24)
[2017-01-05 15:50] VITALS: BP 146/65; PULSE 96; RESP 16; TEMP 97.8; O2SAT 94
--- NOTE | 2017-01-05 18:15 | HHI.IDPN ---
Note Infectious Disease Note Patient feels okay. On nasal O2. Blood culture 12/30 and 12/31 staph epi. Blood culture 01/02 - no growth. Afebrile. Reports a little drainage around the PEG. Eating solid food. S/P esophageal stent and PEG on 12/24/16. Peg was placed into previous peg site where a fistula was noted. Admitted after PEG dislodged noted to have surrounding erythema. PAST MEDICAL HISTORY: 1. 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 2. Esophageal strictures. 3. Radiation esophagitis. 4. Hypothyroidism. 5. Hypertension. 6. Gastroesophageal reflux disease (GERD). 7. Hyperlipidemia. 8. COPD. 9. Macular degeneration. 10. Hysterectomy. 11. Tonsillectomy. 12. Tubal ligation. ALLERGIES: OXACILLIN. ANTIBIOTICS: Vancomycin. OBJECTIVE: Vital Signs Date Time Temp Pulse Resp B/P (MAP) Pulse Ox O2 Delivery O2 Flow Rate FiO2 01/05/17 15:50 97.8 96 16 146/65 (92) 94 01/05/17 14:30 Nasal Cannula 1.50 01/05/17 11:37 Nasal Cannula 2.00 01/05/17 08:15 97.4 87 16 129/61 (83) 97 01/05/17 02:30 97.6 93 133/72 (92) 97 01/04/17 21:20 Nasal Cannula 2.00 01/04/17 20:00 98.8 97 20 138/57 (84) 97 Laboratory Tests Test 01/04/17 09:46 01/05/17 05:23 White Blood Count 13.4 TH/MM3 12.6 TH/MM3 Red Blood Count 5.18 MIL/MM3 4.66 MIL/MM3 Hemoglobin 14.2 GM/DL 12.8 GM/DL Hematocrit 44.7 % 40.5 % Mean Corpuscular Volume 86.4 FL 87.1 FL Mean Corpuscular Hemoglobin 27.5 PG 27.5 PG Mean Corpuscular Hemoglobin Concent 31.8 % 31.6 % Red Cell Distribution Width 21.9 % 22.1 % Platelet Count 366 TH/MM3 331 TH/MM3 Mean Platelet Volume 8.9 FL 8.6 FL Neutrophils (%) (Auto) 77.5 % 87.7 % Lymphocytes (%) (Auto) 16.3 % 9.3 % Monocytes (%) (Auto) 5.5 % 2.9 % Eosinophils (%) (Auto) 0.5 % 0.0 % Basophils (%) (Auto) 0.2 % 0.1 % Neutrophils # (Auto) 10.4 TH/MM3 11.1 TH/MM3 Lymphocytes # (Auto) 2.2 TH/MM3 1.2 TH/MM3 Monocytes # (Auto) 0.7 TH/MM3 0.4 TH/MM3 Eosinophils # (Auto) 0.1 TH/MM3 0.0 TH/MM3 Basophils # (Auto) 0.0 TH/MM3 0.0 TH/MM3 CBC Comment AUTO DIFF AUTO DIFF Differential Total Cells Counted 100 100 Neutrophils % (Manual) 84 % 83 % Lymphocytes % 11 % 8 % Monocytes % 2 % 6 % Eosinophils % 1 % Neutrophils # (Manual) 11.5 TH/MM3 10.8 TH/MM3 Myelocytes 2 % 3 % Differential Comment FINAL DIFF MANUAL FINAL DIFF MANUAL Platelet Estimate NORMAL NORMAL Platelet Morphology Comment NORMAL ENLARGED Ovalocytes 1+ Acanthocytes OCC Laboratory Tests Test 01/04/17 09:46 01/05/17 05:23 Blood Urea Nitrogen 32 MG/DL 38 MG/DL Creatinine 0.91 MG/DL 0.85 MG/DL Random Glucose 97 MG/DL 141 MG/DL Total Protein 8.1 GM/DL 7.3 GM/DL Albumin 2.9 GM/DL 2.7 GM/DL Calcium Level 8.9 MG/DL 8.8 MG/DL Phosphorus Level 3.3 MG/DL Magnesium Level 2.5 MG/DL Alkaline Phosphatase 187 U/L 159 U/L Aspartate Amino Transf (AST/SGOT) 27 U/L 24 U/L Alanine Aminotransferase (ALT/SGPT) 45 U/L 39 U/L Total Bilirubin 0.5 MG/DL 0.4 MG/DL Sodium Level 141 MEQ/L 141 MEQ/L Potassium Level 2.9 MEQ/L 4.3 MEQ/L Chloride Level 99 MEQ/L 104 MEQ/L Carbon Dioxide Level 29.8 MEQ/L 29.4 MEQ/L Anion Gap 12 MEQ/L 8 MEQ/L Estimat Glomerular Filtration Rate 60 ML/MIN 65 ML/MIN Hemoglobin A1c 4.8 % Free Thyroxine 1.25 NG/DL Thyroid Stimulating Hormone 3rd Gen 8.570 uIU/ML Microbiology Date/Time Source Procedure Growth Status 01/02/17 19:02 Blood Peripheral Aerobic Blood Culture - Preliminary NO GROWTH IN 3 DAYS Resulted 01/02/17 19:02 Blood Peripheral Anaerobic Blood Culture - Preliminary NO GROWTH IN 3 DAYS Resulted 01/02/17 18:52 Blood Peripheral Aerobic Blood Culture - Preliminary NO GROWTH IN 3 DAYS Resulted 01/02/17 18:52 Blood Peripheral Anaerobic Blood Culture - Preliminary NO GROWTH IN 3 DAYS Resulted 01/04/17 12:05 Catheter Tip Other Wound Culture - Preliminary NO GROWTH IN 24 HOURS. Resulted IMAGING: Chest X-Ray 12/31/16 0600 Signed Impressions: Service Date/Time: Saturday, December 31, 2016 03:51 - CONCLUSION: Esophageal stent in good position. Minimal consolidation left lower lobe with a pleural effusion. Niranjan Cardenas MD CT Angiography 12/29/16 0000 Signed Impressions: Service Date/Time: December 01:02 - CONCLUSION: 1. Negative for pulmonary embolus. 2. Esophageal stent present with abnormal soft tissue in the mediastinum around the esophageal stent. 3. Stable 2.3 cm nodule upper left lung. 4. Development of bilateral pleural effusions, left greater than right with partial loculation on the left side and compressive atelectasis in both lungs. Tio Espinoza MD GI Procedure 12/24/16 1119 Signed Impressions: Service Date/Time: Saturday, December 24, 2016 11:24 - CONCLUSION: 1. Esophageal stent in excellent position. Clifford Machado MD Upper [facility] 12/23/16 0000 Signed Impressions: Service Date/Time: December 09:22 - CONCLUSION: 1. No evidence of fistula or obstruction. 2. Small diverticulum along the distal esophagus. Louie Conrad MD Abdomen/Pelvis CT 12/10/16 0000 Signed Impressions: Service Date/Time: Saturday, December 10, 2016 20:17 - CONCLUSION: 1. Focal thickening of the left rectus muscle with sinus tract extending from the lumen of the stomach into the rectus, presumably at site of prior percutaneous gastrostomy. 2. Moderate-sized left pleural effusion. No evidence of ascites. 3. 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 4. Sigmoid diverticulosis without radiographic evidence of diverticulitis. Armando Harrington MD PHYSICAL EXAMINATION: GENERAL: No acute distress. HEENT: No icterus. Oropharynx with moist mucosa. NECK: The neck is supple. LUNGS: Clear breath sounds. HEART: Regular S1 and S2 without murmurs. No rubs or gallops. CHEST: chest wall is mildly tender where port was removed. No erythema. ABDOMEN: Bowel sounds present, soft. Non tender. Mild erythema erythema and little serous drainage around PEG tube. EXTREMITIES: No clubbing or cyanosis or edema. SKIN: No rash. NEUROLOGIC: Nonfocal. PSYCHIATRIC: calm and cooperative. IMPRESSION: 1. Bacteremia gram positive. Staph Epi. Suspect infusaport catheter infection. Port removed. 2. 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 3. Leukocytosis. improved. RECOMMENDATIONS: 1. Continue Vancomycin IV until 01/12/17. 2. PICC ordered for antibiotics. 3. Infusion form on chart. Karlos Guy MD Jan 05, 2017 18:15
--- NOTE | 2017-01-05 18:26 | HHI.FF ---
Infusion Therapy Location of Infusion Therapy: Ambulatory Infusion Therapy Order Patient Information Patient Weight 54.5 kg Diagnosis: Diagnosis Bacteremia. Staph epi. Catheter related infection. Coded Allergies: Sulfa (Sulfonamide Antibiotics) (Unverified Allergy, Severe, SWELLING, ) Administer Medication Vancomycin 1 gram IV q 24 hours Stop Treatment: Jan 12, 2017 Additional Information Venous access: PICC Line Additional Instructions [x] Peripheral flush and dressing changes per protocol [x] Implanted port and central airline pilot: * Implanted port: 10 ml Normal Saline followed by 5 ml Heparin 100 units/ml Heparin flush after each use and monthly to maintain. [] May leave port accessed during therapy. [] May leave peripheral site accessed for duration of therapy. [x] If patient has SOB or respiratory distress, check oxygen saturation. If less than 90% or clinical signs of respiratory distress, administer oxygen at 2 L/min. via nasal cannula and notify physician. [x] Anaphylaxis/Reaction orders: * Stop infusion. * Keep IV line open with saline flush. * Notify physician. * Monitor vital signs every 15 minutes until symptoms resolve. * Check Oxygen saturation; Oxygen at 2 L/min. via nasal cannula if less than 90% or clinical signs of respiratory distress. * Administer diphenhydramine (Benadryl) 25 mg IV STAT, (unless patient has received as pre-med). May repeat once, if necessary. * Solu-Cortef 250 mg IVP over 30-60 seconds, use 100 mg vials for each dissolution. * Epinephrine (1mg/1 ml) 0.3 mg subcutaneously or IVP now with any signs of respiratory distress. * Check with physician for new additional pre-med orders if patient is re- challenged or re-treated. [x] May remove PICC line when treatment complete, after confirming with Physician. [x] If the patient is admitted to the hospital, the ED, or transferred via [facility] , complete transfer form including medication reconciliation order sheet. Laboratory Tests Weekly Labs: BMP, CBC w/diff, Vancomycin Trough Additional Information Follow up with ID Dr Chiquita Sloan in 1 week. Karlos Guy MD Jan 05, 2017 18:26
--- NOTE | 2017-01-05 18:32 | HHI.FF ---
Infusion Therapy Location of Infusion Therapy: Home Health Care IV Infusion Order Patient Information Patient Weight 54.5 kg Diagnosis: Diagnosis Bacteremia staph epi. catheter related bacteremia. Coded Allergies: Sulfa (Sulfonamide Antibiotics) (Unverified Allergy, Severe, SWELLING, ) Administer Medication Vancomycin 1 gram IV q 24 hours Stop Treatment: Jan 12, 2017 Additional Information Venous access: PICC Line Additional Instructions [x] Peripheral flush and dressing changes per protocol [x] Implanted port and central line builder: * Implanted port: 10 ml Normal Saline followed by 5 ml Heparin 100 units/ml Heparin flush after each use and monthly to maintain. [] May leave port accessed during therapy. [] May leave peripheral site accessed for duration of therapy. [x] If patient has SOB or respiratory distress, check oxygen saturation. If less than 90% or clinical signs of respiratory distress, administer oxygen at 2 L/min. via nasal cannula and notify physician. [x] Anaphylaxis/Reaction orders: * Stop infusion. * Keep IV line open with saline flush. * Notify physician. * Monitor vital signs every 15 minutes until symptoms resolve. * Check Oxygen saturation; Oxygen at 2 L/min. via nasal cannula if less than 90% or clinical signs of respiratory distress. * Administer diphenhydramine (Benadryl) 25 mg IV STAT, (unless patient has received as pre-med). May repeat once, if necessary. * Solu-Cortef 250 mg IVP over 30-60 seconds, use 100 mg vials for each dissolution. * Epinephrine (1mg/1 ml) 0.3 mg subcutaneously or IVP now with any signs of respiratory distress. * Check with physician for new additional pre-med orders if patient is re- challenged or re-treated. [x] May remove PICC line when treatment complete, after confirming with Physician. [x] If the patient is admitted to the hospital, the ED, or transferred via [facility] , complete transfer form including medication reconciliation order sheet. Laboratory Tests Weekly Labs: BMP, CBC w/diff, Vancomycin Trough Additional Information Follow up with ID Dr Chiquita Sloan in 1 week. Karlos Guy MD Jan 05, 2017 18:32
[2017-01-05 20:00] VITALS: BP 140/63; PULSE 94; RESP 18; TEMP 98.2; O2SAT 96
[2017-01-05] MEDS: AMITRIPTYLINE HCL 25 MG TAB PO SCH (21:57)
--- NOTE | 2017-01-05 22:39 | PD.ONC.PN ---
Subjective Subjective Remarks appetite improving breathing better drainage around peg tube denies any pain no fevers Objective Data Date Time Temp Pulse Resp B/P (MAP) Pulse Ox O2 Delivery O2 Flow Rate FiO2 01/05/17 20:00 98.2 94 18 140/63 (88) 96 01/05/17 15:50 97.8 96 16 146/65 (92) 94 01/05/17 14:30 Nasal Cannula 1.50 01/05/17 11:37 Nasal Cannula 2.00 01/05/17 08:15 97.4 87 16 129/61 (83) 97 01/05/17 02:30 97.6 93 133/72 (92) 97 01/05/17 01/05/17 01/05/17 07:00 15:00 23:00 Intake Total 240 ml Balance 240 ml Result Diagram: 01/05/1723 01/05/17 0523 Laboratory Results Laboratory Tests Test 01/05/17 05:23 White Blood Count 12.6 TH/MM3 Red Blood Count 4.66 MIL/MM3 Hemoglobin 12.8 GM/DL Hematocrit 40.5 % Mean Corpuscular Volume 87.1 FL Mean Corpuscular Hemoglobin 27.5 PG Mean Corpuscular Hemoglobin Concent 31.6 % Red Cell Distribution Width 22.1 % Platelet Count 331 TH/MM3 Mean Platelet Volume 8.6 FL Neutrophils (%) (Auto) 87.7 % Lymphocytes (%) (Auto) 9.3 % Monocytes (%) (Auto) 2.9 % Eosinophils (%) (Auto) 0.0 % Basophils (%) (Auto) 0.1 % Neutrophils # (Auto) 11.1 TH/MM3 Lymphocytes # (Auto) 1.2 TH/MM3 Monocytes # (Auto) 0.4 TH/MM3 Eosinophils # (Auto) 0.0 TH/MM3 Basophils # (Auto) 0.0 TH/MM3 CBC Comment AUTO DIFF Differential Total Cells Counted 100 Neutrophils % (Manual) 83 % Lymphocytes % 8 % Monocytes % 6 % Neutrophils # (Manual) 10.8 TH/MM3 Myelocytes 3 % Differential Comment FINAL DIFF MANUAL Platelet Estimate NORMAL Platelet Morphology Comment ENLARGED Ovalocytes 1+ Acanthocytes OCC Blood Urea Nitrogen 38 MG/DL Creatinine 0.85 MG/DL Random Glucose 141 MG/DL Total Protein 7.3 GM/DL Albumin 2.7 GM/DL Calcium Level 8.8 MG/DL Alkaline Phosphatase 159 U/L Aspartate Amino Transf (AST/SGOT) 24 U/L Alanine Aminotransferase (ALT/SGPT) 39 U/L Total Bilirubin 0.4 MG/DL Sodium Level 141 MEQ/L Potassium Level 4.3 MEQ/L Chloride Level 104 MEQ/L Carbon Dioxide Level 29.4 MEQ/L Anion Gap 8 MEQ/L Estimat Glomerular Filtration Rate 65 ML/MIN Culture Results Microbiology Date/Time Source Procedure Growth Status 01/04/17 12:05 Catheter Tip Other Wound Culture - Preliminary NO GROWTH IN 24 HOURS. Resulted Administered Medications Medications (Trade) Dose Ordered Sig/Alla Route PRN Reason Start Time Stop Time Status Last Admin Dose Admin Sodium Chloride (NS Flush) 2 ml BID IV FLUSH 12/10/16 21:00 01/05/17 21:00 Enoxaparin Sodium (Lovenox Inj) 40 mg Q24H SQ 12/10/16 22:45 Future hold 01/04/17 22:33 Amitriptyline HCl (Elavil) 25 mg HS PO 12/11/16 21:00 01/05/17 21:57 Levothyroxine Sodium (Synthroid) 75 mcg DAILY@07 PO 12/11/16 07:00 01/05/17 06:48 Lisinopril (Prinivil) 10 mg DAILY PO 12/11/16 09:00 01/05/17 08:35 Hydromorphone HCl (Dilaudid Pf Inj) 1 mg Q3H PRN IV PUSH PAIN SCALE 5 TO 10 12/12/16 14:45 01/04/17 21:23 Nystatin (Mycostatin Liq) 5 ml QID SWISH-SWAL 12/19/16 18:00 01/05/17 21:57 Miscellaneous Information 1 Q3D T-DERMAL 12/20/16 18:00 12/26/16 18:00 Guaifenesin (Robitussin Liq) 600 mg BID PO 12/21/16 09:45 12/30/16 21:00 Patient Own Medication PT OWN MED: TRANXENE-T (CLORAZEPA... TID PO 12/23/16 13:00 Future hold 01/05/17 17:43 Pantoprazole Sodium (Protonix) 40 mg Q12HR PO 12/24/16 12:45 01/05/17 21:57 Ondansetron HCl (Zofran Inj) 4 mg Q4HR PRN IV PUSH N/V 12/24/16 18:00 01/02/17 12:59 Morphine Sulfate (Oramorph Sr) 15 mg BID PO 12/28/16 21:00 01/05/17 21:57 Oxycodone HCl (Roxicodone) 5 mg Q4H PRN PO PAIN SCALE 1 TO 4 12/28/16 14:30 01/05/17 18:37 Methylprednisolone Sodium Succinate (SoluMEDROL INJ) 40 mg Q12HR IV PUSH 01/01/17 09:00 01/05/17 21:57 Sodium Chloride (NS Flush) 5 ml Q21D IV FLUSH 01/02/17 05:00 01/02/17 05:55 Heparin Sodium (Porcine) (Heparin Central Flush) 500 units Q21D IV FLUSH 01/02/17 05:00 01/02/17 05:55 Sodium Chloride (NS Flush) 5 ml UNSCH PRN IV FLUSH SEE LABEL COMMENTS 01/02/17 05:00 01/02/17 16:50 Heparin Sodium (Porcine) (Heparin Central Flush) 250 units UNSCH PRN IV FLUSH FLUSH AFTER USING IV ACCESS 01/02/17 05:00 01/03/17 04:20 Vancomycin HCl 1250 mg/Sodium Chloride 262.5 ml @ 250 mls/hr Q24H IV 01/02/17 10:00 01/05/17 10:00 Furosemide (Lasix) 20 mg DAILY PO 01/05/17 11:00 01/05/17 12:24 Objective Remarks GENERAL:nad SKIN: Warm and dry CARDIOVASCULAR: Regular rate and rhythm without murmurs. RESPIRATORY: Breath sounds equal bilaterally. No accessory muscle use. GASTROINTESTINAL: Abdomen soft, non-tender, nondistended. EXTREMITIES: No cyanosis, or edema. Assessment/Plan Problem List: (1) Non-small cell lung cancer (NSCLC) ICD Codes: C34.90 - Malignant neoplasm of unspecified part of unspecified bronchus or lung Status: Acute Plan: --further treatment in clinic once improvement in current conditions History: diagnosed via CT-guided biopsy in June of 2016. PET/CT scan confirmed this disease to be Stage III-B. --received concurrent chemotherapy and radiation treatments. --had a total of four cycles of chemotherapy. --Follow-up imaging showed a residual lung lesion in the left upper lobe which was 1.8 x 2.4 x 3.8 cm. The patient was recommended two additional consolidation treatments but unfortunately due to her decline in performance status, she was not able to be given this treatment. (2) Dysphagia ICD Codes: R13.10 - Dysphagia, unspecified Status: Acute Plan: -- TPN off. 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 --Due to significant dysphagia a PEG tube was placed. --had complications from the PEG tube insertion site. --++large amount of leakage and a copious amount of purulent drainage from the PEG tube insertion site. +concern for abdominal wall fistula. --EGD and stent placement and PEG placement on 12.24-->EGD showed Radiation esophagitis, Esophageal stricture, Gastrocutaneous fistula, Gastric ulcers --upper GI series, 12/23-->No evidence of fistula or obstruction. Small diverticulum along the distal esophagus. (3) Normocytic anemia ICD Codes: D64.9 - Anemia, unspecified Status: Acute Plan: monitor and transfuse as needed History: --patient became severely anemic with a hemoglobin in the 6 range and she was given 2 units of packed red blood cells. --no evidence of hemolysis. --likely losing blood through the GI tract. --also a component of malnutrition. --currently being seen by GI and further workup is ongoing. --ordered daily IV iron x 3 treatments. (4) Pain ICD Codes: R52 - Pain, unspecified Status: Acute Plan: --on IV Dilaudid p.r.n. 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 currently getting wound care. --has also been evaluated by Surgery and there are no surgical plans at this time. Assessment 76y/o female with a history of [id number] lung cancer who was admitted to the hospital for complications from radiation esophagitis. h/o History of [id number] lung cancer, Stage III-B, status post concurrent chemotherapy and radiation treatment. Esophageal strictures status post dilatation x 4. Hypertension. Port placement. Lung biopsy. Hysterectomy. Tonsillectomy. PEG tube placement. Plan 1. Infusaport removed 2. PT/Nutrition 3. NSCLC Cancer Stage III d/w rn Montrell Montiel MD Jan 05, 2017 22:39
[2017-01-05] MEDS: ENOXAPARIN SODIUM 40 MG/0.4 ML SYRINGE SQ SCH (23:16)
[2017-01-06] VITALS: BP 136/62; PULSE 87; RESP 18; TEMP 98; O2SAT 96
[2017-01-06 04:00] VITALS: BP 125/55; PULSE 86; RESP 18; TEMP 97.5; O2SAT 93
[2017-01-06] MEDS: LEVOTHYROXINE SODIUM 75 MCG TAB PO SCH (05:20)
[2017-01-06 08:00] VITALS: BP 151/78; PULSE 91; RESP 18; TEMP 97.6; O2SAT 96
[2017-01-06] MEDS: methylPREDNISolone SOD SUCC 40 MG/1 ML VIAL IV PUSH SCH ×2 (08:33→20:42)
[2017-01-06] MEDS: NYSTATIN SUSP 500,000 U/5 ML CUP SWISH-SWAL SCH ×4 (08:33→20:41)
[2017-01-06] MEDS: FUROSEMIDE 20 MG TAB PO SCH (08:34)
[2017-01-06] MEDS: PANTOPRAZOLE SOD 40 MG DELAYED RELEASE TAB PO SCH ×2 (08:34→20:41)
[2017-01-06] MEDS: guaiFENesin SOLUTION 200 MG/10 ML CUP PO SCH ×2 (08:34→20:43)
[2017-01-06] MEDS: LISINOPRIL 10 MG TAB PO SCH (08:34)
[2017-01-06] MEDS: MORPHINE SULFATE 15 MG CONTROLLED RELEASE TAB PO SCH ×2 (08:34→20:42)
[2017-01-06] MEDS: [UNRECOGNIZED DRUG - OTHER] PO SCH ×3 (08:35→18:11)
[2017-01-06] MEDS: CLORAZEPATE PO SCH ×3 (08:35→18:11)
[2017-01-06] MEDS: SODIUM CHLORIDE 0.9% FLUSH 10 ML FLUSH IV FLUSH SCH ×2 (08:35→20:42)
[2017-01-06] MEDS ORDERED: PHARMACY ORDERED LAB ONE (09:45)
--- NOTE | 2017-01-06 10:28 | HHI.PR ---
Subjective Remarks Ms. Valdovinos is a 76 year old female with a history of NSCLC, radiation esophagitis presents to the ED due to complication of the PEG tube insertion site. PEG Tube was removed recently due to large leakage. 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 at this time status post Right Port removal, her Daughter in the room Miss Juanita Sullivan. states she does not want to take replacement for Potassium IV will continue Potassium by mouth. 01/06: Recommended by ID specialist with diagnosis of Bacteremia gram positive, Staph epi, suspected infusaport catheter infection status post Port removal to continue Vancomycin until 01/12/17, PICC ordered for antibiotics. discussed with patient in the room and her Daughter explained about the relation between by mouth Lasix to IV Lasix. the patient states she understand. No nausea,vomit or diarrhea tolerating diet. Objective Vital Signs Date Time Temp Pulse Resp B/P (MAP) Pulse Ox O2 Delivery O2 Flow Rate FiO2 01/06/17 04:00 97.5 86 18 125/55 (78) 93 01/06/17 00:00 98.0 87 18 136/62 (86) 96 01/05/17 20:00 98.2 94 18 140/63 (88) 96 01/05/17 15:50 97.8 96 16 146/65 (92) 94 01/05/17 14:30 Nasal Cannula 1.50 01/05/17 11:37 Nasal Cannula 2.00 I/O 01/05/17 01/05/17 01/05/17 01/06/17 01/06/17 01/06/17 06:59 14:59 22:59 06:59 14:59 22:59 Intake Total 240 ml Balance 240 ml Intake Oral 240 ml # Voids 4 8 # Bowel Movements 1 2 Result Diagram: 01/05/17 0523 01/06/17 0817 Imaging Last Impressions Chest X-Ray 01/04/17 0600 Signed Impressions: Service Date/Time: Wednesday, January 04, 2017 05:46 - CONCLUSION: No acute cardiopulmonary abnormality is identified. The left basilar opacity documented previously has resolved. Og Miranda MD CT Angiography 12/29/16 0000 Signed Impressions: Service Date/Time: December 01:02 - CONCLUSION: 1. Negative for pulmonary embolus. 2. Esophageal stent present with abnormal soft tissue in the mediastinum around the esophageal stent. 3. Stable 2.3 cm nodule upper left lung. 4. Development of bilateral pleural effusions, left greater than right with partial loculation on the left side and compressive atelectasis in both lungs. Tio Espinoza MD GI Procedure 12/24/16 1119 Signed Impressions: Service Date/Time: Saturday, December 24, 2016 11:24 - CONCLUSION: 1. Esophageal stent in excellent position. Clifford Machado MD Upper GI Series 12/23/16 0000 Signed Impressions: Service Date/Time: December 09:22 - CONCLUSION: 1. No evidence of fistula or obstruction. 2. Small diverticulum along the distal esophagus. Louie Conrad MD Abdomen/Pelvis CT 12/10/16 0000 Signed Impressions: Service Date/Time: Saturday, December 10, 2016 20:17 - CONCLUSION: 1. Focal thickening of the left rectus muscle with sinus tract extending from the lumen of the stomach into the rectus, presumably at site of prior percutaneous gastrostomy. 2. Moderate-sized left pleural effusion. No evidence of ascites. 3. 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 4. Sigmoid diverticulosis without radiographic evidence of diverticulitis. Armando Harrington MD Procedures 12/17/2016 EGD with clip placement Other Results Laboratory Tests Test 12/10/16 13:00 12/11/16 05:16 12/12/16 07:20 12/23/16 07:00 Activated Partial Thromboplast Time 27.9 SEC Lipase 48 U/L Lactic Acid Level 1.3 mmol/L Band Neutrophils % 2 % Metamyelocytes 2 % Haptoglobin 225 MG/DL Prothrombin Time 11.1 SEC Prothromb Time International Ratio 1.0 RATIO Iron Level 31 MCG/DL Total Iron Binding Capacity 188 MCG/DL Percent Iron Saturation 16.5 % Ferritin 70 NG/ML Direct Bilirubin 0.1 MG/DL Indirect Bilirubin 0.3 MG/DL Lactate Dehydrogenase 133 U/L Vitamin B12 Level 692 PG/ML Red Blood Cell Folate 732 Test 12/25/16 06:04 12/25/16 12:30 12/29/16 21:45 12/30/16 10:41 Protein Corrected Calcium 7.9 MG/DL Ionized Calcium 5.0 mg/dL Nasal Screen MRSA (PCR) MRSA NOT DETECTED B-Type Natriuretic Peptide 371 PG/ML Test 12/30/16 13:46 12/31/16 05:10 01/02/17 06:03 01/04/17 09:46 Total Creatine Kinase 133 U/L Creatine Kinase MB 1.5 NG/ML Troponin I 0.03 NG/ML Blood Gas Puncture Site LT RADIAL Blood Gas Patient Temperature 98.6 Blood Gas HCO3 29 mmol/L Blood Gas Base Excess 4.8 mmol/L Blood Gas Oxygen Saturation 91 % Arterial Blood pH 7.42 Arterial Blood Partial Pressure CO2 46 mmHg Arterial Blood Partial Pressure O2 71 mmHg Arterial Blood Oxygen Content 14.4 Vol % Arterial Blood Carboxyhemoglobin 1.9 % Arterial Blood Methemoglobin 1.0 % Blood Gas Hemoglobin 11.2 G/DL Oxygen Delivery Device HI JORJE NC Blood Gas Liter Flow 15 L/M Blood Gas Inspired Oxygen 34 % Random Vancomycin Level 18.8 COMMENT Eosinophils % 1 % Hemoglobin A1c 4.8 % Blood Urea Nitrogen 32 MG/DL Creatinine 0.91 MG/DL Random Glucose 97 MG/DL Total Protein 8.1 GM/DL Albumin 2.9 GM/DL Calcium Level 8.9 MG/DL Phosphorus Level 3.3 MG/DL Magnesium Level 2.5 MG/DL Alkaline Phosphatase 187 U/L Aspartate Amino Transf (AST/SGOT) 27 U/L Alanine Aminotransferase (ALT/SGPT) 45 U/L Total Bilirubin 0.5 MG/DL Sodium Level 141 MEQ/L Potassium Level 2.9 MEQ/L Chloride Level 99 MEQ/L Carbon Dioxide Level 29.8 MEQ/L Free Thyroxine 1.25 NG/DL Thyroid Stimulating Hormone 3rd Gen 8.570 uIU/ML Vancomycin Level Trough 19.2 MCG/ML Test 01/05/17 05:23 01/06/17 08:17 White Blood Count 12.6 TH/MM3 Red Blood Count 4.66 MIL/MM3 Hemoglobin 12.8 GM/DL Hematocrit 40.5 % Mean Corpuscular Volume 87.1 FL Mean Corpuscular Hemoglobin 27.5 PG Mean Corpuscular Hemoglobin Concent 31.6 % Red Cell Distribution Width 22.1 % Platelet Count 331 TH/MM3 Mean Platelet Volume 8.6 FL Neutrophils (%) (Auto) 87.7 % Lymphocytes (%) (Auto) 9.3 % Monocytes (%) (Auto) 2.9 % Eosinophils (%) (Auto) 0.0 % Basophils (%) (Auto) 0.1 % Neutrophils # (Auto) 11.1 TH/MM3 Lymphocytes # (Auto) 1.2 TH/MM3 Monocytes # (Auto) 0.4 TH/MM3 Eosinophils # (Auto) 0.0 TH/MM3 Basophils # (Auto) 0.0 TH/MM3 CBC Comment AUTO DIFF Differential Total Cells Counted 100 Neutrophils % (Manual) 83 % Lymphocytes % 8 % Monocytes % 6 % Neutrophils # (Manual) 10.8 TH/MM3 Myelocytes 3 % Differential Comment FINAL DIFF MANUAL Platelet Estimate NORMAL Platelet Morphology Comment ENLARGED Ovalocytes 1+ Acanthocytes OCC Blood Urea Nitrogen 38 MG/DL Creatinine 0.85 MG/DL 0.73 MG/DL Random Glucose 141 MG/DL Total Protein 7.3 GM/DL Albumin 2.7 GM/DL Calcium Level 8.8 MG/DL Alkaline Phosphatase 159 U/L Aspartate Amino Transf (AST/SGOT) 24 U/L Alanine Aminotransferase (ALT/SGPT) 39 U/L Total Bilirubin 0.4 MG/DL Sodium Level 141 MEQ/L Potassium Level 4.3 MEQ/L Chloride Level 104 MEQ/L Carbon Dioxide Level 29.4 MEQ/L Anion Gap 8 MEQ/L Estimat Glomerular Filtration Rate 77 ML/MIN Objective Remarks GENERAL: AOx3, NAD. SKIN: Warm and dry. HEAD: Normocephalic. EYES: No scleral icterus. No injection or drainage. NECK: Supple, trachea midline. No JVD or lymphadenopathy. CARDIOVASCULAR: Regular rate and rhythm without murmurs, gallops, or rubs. RESPIRATORY: Breath sounds equal bilaterally. No accessory muscle use. Right upper chest Port removed. GASTROINTESTINAL: soft non tender, high drainage from PEG tube area. MUSCULOSKELETAL: No cyanosis, or edema. BACK: Nontender without obvious deformity. No CVA tenderness. Medications and IVs Current Medications Medications (Trade) Dose Ordered Sig/Alla Route Start Time Stop Time Status Last Admin (NS Flush) 2 ml BID IV FLUSH 12/10/16 21:00 01/06/17 08:35 (Lovenox Inj) 40 mg Q24H SQ 12/10/16 22:45 Future hold 01/05/17 23:16 (Elavil) 25 mg HS PO 12/11/16 21:00 01/05/17 21:57 (Synthroid) 75 mcg DAILY@07 PO 12/11/16 07:00 01/06/17 05:20 (Prinivil) 10 mg DAILY PO 12/11/16 09:00 01/06/17 08:34 (Dilaudid Pf Inj) 1 mg Q3H PRN IV PUSH 12/12/16 14:45 01/04/17 21:23 (Mycostatin Liq) 5 ml QID SWISH-SWAL 12/19/16 18:00 01/06/17 08:33 Miscellaneous Information 1 Q3D T-DERMAL 12/20/16 18:00 12/26/16 18:00 (Robitussin Liq) 600 mg BID PO 12/21/16 09:45 12/30/16 21:00 Patient Own Medication PT OWN MED: TRANXENE-T (CLORAZEPA... TID PO 12/23/16 13:00 Future hold 01/06/17 08:35 (Protonix) 40 mg Q12HR PO 12/24/16 12:45 01/06/17 08:34 (Zofran Inj) 4 mg Q4HR PRN IV PUSH 12/24/16 18:00 01/02/17 12:59 (Oramorph Sr) 15 mg BID PO 12/28/16 21:00 01/06/17 08:34 (Roxicodone) 5 mg Q4H PRN PO 12/28/16 14:30 01/05/17 23:15 Pharmacy Profile Note 0 ml @ 0 mls/hr UNSCH OTHER 12/30/16 02:30 (Duoneb Neb) 1 ampule Q2HR NEB PRN INH 12/30/16 12:15 (SoluMEDROL INJ) 40 mg Q12HR IV PUSH 01/01/17 09:00 01/06/17 08:33 (NS Flush) 5 ml Q21D IV FLUSH 01/02/17 05:00 01/02/17 05:55 (Heparin Central Flush) 500 units Q21D IV FLUSH 01/02/17 05:00 01/02/17 05:55 (NS Flush) 5 ml UNSCH PRN IV FLUSH 01/02/17 05:00 01/02/17 16:50 (Heparin Central Flush) 250 units UNSCH PRN IV FLUSH 01/02/17 05:00 01/03/17 04:20 Vancomycin HCl 1250 mg/Sodium Chloride 262.5 ml @ 250 mls/hr Q24H IV 01/02/17 10:00 01/05/17 10:00 (Lasix) 20 mg DAILY PO 01/05/17 11:00 01/05/17 12:24 A/P Problem List: (1) 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 Valdovinos is a 76 year old female with a history of NSCLC, radiation esophagitis presents to the ED due to complication of the PEG tube insertion site. PEG Tube was removed recently due to large leakage. 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 - Acute respiratory failure - hypoxic, Improved. - Probable pulmonary edema decreased dose of Lasix to half by mouth. - COPD exacerbation - Improving continue Bronchodilator, Mucolytic and incentive spirometry. - Abdominal wall fistula high drainage from the area. reconsulted GI specialist by ID specialist. - Radiation induced esophageal stricture - Likely a complication of PEG Tube placement. - s/p esophageal stent placement by IR on 12/24/2016, PEG tube placement by GI on 12/24/2016. - Patient is off TPN and currently tolerating oral feeding well. - Gram positive Bacteremia - ID following. Patient is currently on Vancomycin, Port removed 01/04/17 - Repeat Blood cultures from 12/31/2016 Negative -Vancomycin will continue until 01/12/17, PICC line ordered for antibiotic management. - History of Non-small cell lung cancer Hematology and technical service specialist following. - s/p chemo, radiation therapy. - Hypokalemia - replaced today 4.3 - Hypothyroidism - continue Levothyroxine 75mcg Qday. - Hypertension - continue Lisinopril 10mg Qday. Full code. Lovenox. Discussed with Patient, Her Daughter and nurse Miss Delarosa in the room, all questions answered to the best of my abilities. Discharge Planning once cleared by specialists. Syed Mensah MD Jan 06, 2017 10:28
[2017-01-06] MEDS: VANCOMYCIN INJ 1,250 MG in SODIUM CHLOR 0.9% 250 ML INJ 250 ML IV SCH (10:59)
[2017-01-06 12:00] VITALS: BP 129/60; PULSE 85; RESP 16; TEMP 98.4; O2SAT 93
--- NOTE | 2017-01-06 15:34 | HHI.GIFU ---
Subjective Remarks Pt resting in bed in no apparent distress. GI has been reconsulted to readdress PEG site. Pt tolerating regular diet PO. (Ai Tim) Objective Vitals I&O Vital Signs Date Time Temp Pulse Resp B/P (MAP) Pulse Ox O2 Delivery O2 Flow Rate FiO2 01/06/17 12:00 98.4 85 16 129/60 (83) 93 01/06/17 08:05 Nasal Cannula 1.50 01/06/17 04:00 97.5 86 18 125/55 (78) 93 01/06/17 00:00 98.0 87 18 136/62 (86) 96 01/05/17 20:00 98.2 94 18 140/63 (88) 96 01/05/17 15:50 97.8 96 16 146/65 (92) 94 I/O 01/05/17 01/05/17 01/05/17 01/06/17 01/06/17 01/06/17 06:59 14:59 22:59 06:59 14:59 22:59 Intake Total 240 ml Balance 240 ml Intake Oral 240 ml # Voids 4 8 # Bowel Movements 1 2 Laboratory Laboratory Tests Test 01/06/17 08:17 Creatinine 0.73 Estimat Glomerular Filtration Rate 77 Vancomycin Level Trough 19.3 Date/Time Source Procedure Growth Status 01/02/17 19:02 Blood Peripheral Aerobic Blood Culture - Preliminary NO GROWTH IN 4 DAYS Resulted 01/02/17 19:02 Blood Peripheral Anaerobic Blood Culture - Preliminary NO GROWTH IN 4 DAYS Resulted 12/11/16 17:57 Fluid Other Gram Stain - Final Complete 12/11/16 17:57 Fluid Other Body Fluid Culture - Final NO GROWTH IN 72 HRS.--AEROBICALLY OR ... Complete 12/30/16 03:00 Urine Catheterized Urine Legionella Antigen - Final PRESUMPTIVE NEGATIVE FOR LEGIONELLA P... Complete 12/30/16 03:00 Urine Catheterized Urine Streptococcus pneumoniae Antigen (M - Final PRESUMPTIVE NEGATIVE FOR STREPTOCOCCU... Complete 01/04/17 12:05 Catheter Tip Other Wound Culture - Preliminary NO GROWTH IN 48 HOURS. Resulted Physical Exam HEENT: Normocephalic; atraumatic CHEST: diminished. CARDIAC: RRR. ABDOMEN: Soft, nondistended, no hepatosplenomegaly; bowel sounds are present in all four quadrants. PEG tube clamped, drsg d/i. site improved from admission. some gastric leakage noted, small area erythema around PEG site. EXTREMITIES: Trace ble edema. SKIN: Normal; no rash; no jaundice. GRID OPERATOR: No focal deficits; alert and oriented times three. 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 S/P EGD with esophageal stent placement and PEG placement (12/24/16)-----> Radiation esophagitis, Esophageal stricture, Gastrocutaneous fistula, Gastric ulcers. tolerating PO intake, regular diet. 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 Pt came to office on 12/08 for peg tube site pain and drainage. The tube was noted to be dislodged and was completely removed. The incision was packed and she was given Augmentin suspension. She reports that since the tube was removed, it has been draining copious amounts of purulent She was seen in office today (12/10/16) with significant leakage from the peg tube site, with moderate erythema noted surrounding the site. She was sent to the hospital for IV antibiotics, TPN, and possible I&D. She denies fevers/chills. Abdomen/Pelvis CT (12/10/16)----> 1. Focal thickening of the left rectus muscle with sinus tract extending from the lumen of the stomach into the rectus, presumably at site of prior percutaneous gastrostomy. 2. Moderate-sized left pleural effusion. No evidence of ascites. 3. 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 4. Sigmoid diverticulosis without radiographic evidence of diverticulitis. Fistula site with drainage bag with large amount of dark drainage. NPO. TPN. Wound culture with lactobacillus species. Fluid with no growth x 48 hours. Site itself much improved- not red or indurated. S/P EGD with clip placement (12/17/16)----> Mid-esophageal radiation esophagitis with stricturing but I was able to pass the scope with ease, stomach there was a large opening and on the anterior wall of the stomach that connects to the skin and I cauterized the track with silver nitrate and I applied 4 clips on the inside at the opening of the fistula in hopes to reduce the amount of gastric juice flow and an NG tube was placed so that we can suction gastric contents. The duodenum was normal. The NGT was removed. Her gastric drainage is decreasing from the fistula. Upper GI Series (12/23/16 )----> 1. No evidence of fistula or obstruction. 2. Small diverticulum along the distal esophagus. S/P Rpt. EGD with stent placement/peg placement as above (12/24). The nurse reported on (12/30) that when she went to change that abdominal dressing , the PEG tube was found cut in half with the cut portion taped to the dressing. The PEG tube is clamped. The bumper appears to be still occluding the opening. Since we are not using the PEG tube for feedings this should be okay until she has her repeat EGD with esophageal stent and PEG tube removal in one month. Continue wound care. Plan is for EGD with stent/peg removal in 3 wk - Resp. Insuffienciency/Cough/Hypoxia. Having a little more shortness of breath this afternoon. Diuretics/steroids/nebs per CCM - Leukocytosis secondary to above. Improved. Vanco - GERD. PPI - Anemia, with drop in Hgb. Status post 3 units of packed red blood cells. H& H stable at 11.0/33.6. 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 S/P chemotherapy and radiotherapy, completed on 09/01/16. PET scan scheduled as outpatient. - Hypokalemia, HTN, Hypothyroidism, COPD, Hyperlipidemia, Macular degeneration per attending. PLAN: - soft diet as tolerated - Nutrition recommends ensure supplementation - PPI with BID dosing - for wound care: -apply stoma powder to irritation and wipe off - apply skin prep, let dry - repeat above - cover wound with Maxorb AG loosely packed in wound bed - Cover with dry 4x4 drain sponge - secure dressings with ABD pad and medfix tape - change as needed - Supportive care - f/u with Dr Monzon after d/c - Rpt. EGD in 3 weeks to remove esophageal stent and PEG tube - Pt seen and examined by Dr. Paulson and myself and this note is written on his behalf (Ai Tim) Physician Comments Plan as above, extensive discussion with the patient regarding plan lined up above. Wound inspected and appeared significantly better. Further recommendations to follow. (Brent Paulson MD) Ai Tim Jan 06, 2017 15:34 Brent Paulson MD Jan 06, 2017 17:47
--- NOTE | 2017-01-06 15:57 | HHI.FF ---
Face to Face Verification Diagnosis: (1) Lung cancer (2) Radiation-induced esophageal stricture (3) Abdominal wall fistula Home Health Nursing Order: Medical education Signs/symptoms of disease process Medication education-adverse effect Wound care and dressing changes Nursing assessment with vital signs I have seen patient Alina Valdovinos on 01/06/17. My clinical findings support the need for the requested home health care services because: Ltd mobility - disease progression Deconditioned w/ increased weakness I certify that my clinical findings support that this patient is homebound because: Unsafe to leave home unassisted Syed Mensah MD Jan 06, 2017 15:57
[2017-01-06 16:00] VITALS: BP 147/68; PULSE 91; RESP 16; TEMP 97.7; O2SAT 95
[2017-01-06 20:00] VITALS: BP 155/70; PULSE 94; RESP 20; TEMP 98.1; O2SAT 97
[2017-01-06] MEDS: AMITRIPTYLINE HCL 25 MG TAB PO SCH (20:41)
--- NOTE | 2017-01-06 23:04 | PD.ONC.PN ---
Objective Data Date Time Temp Pulse Resp B/P (MAP) Pulse Ox O2 Delivery O2 Flow Rate FiO2 01/06/17 20:00 98.1 94 20 155/70 (98) 97 01/06/17 16:00 97.7 91 16 147/68 (94) 95 01/06/17 12:00 98.4 85 16 129/60 (83) 93 01/06/17 08:05 Nasal Cannula 1.50 01/06/17 08:00 97.6 91 18 151/78 (102) 96 01/06/17 04:00 97.5 86 18 125/55 (78) 93 01/06/17 00:00 98.0 87 18 136/62 (86) 96 Result Diagram: 01/05/17 0501/06/17 08 Laboratory Results Laboratory Tests Test 01/06/17 08:17 Creatinine 0.73 MG/DL Estimat Glomerular Filtration Rate 77 ML/MIN Vancomycin Level Trough 19.3 MCG/ML Culture Results Microbiology Date/Time Source Procedure Growth Status 01/04/17 12:05 Catheter Tip Other Wound Culture - Preliminary NO GROWTH IN 48 HOURS. Resulted Administered Medications Medications (Trade) Dose Ordered Sig/Alla Route PRN Reason Start Time Stop Time Status Last Admin Dose Admin Sodium Chloride (NS Flush) 2 ml BID IV FLUSH 12/10/16 21:00 01/06/17 20:42 Enoxaparin Sodium (Lovenox Inj) 40 mg Q24H SQ 12/10/16 22:45 Future hold 01/05/17 23:16 Amitriptyline HCl (Elavil) 25 mg HS PO 12/11/16 21:00 01/06/17 20:41 Levothyroxine Sodium (Synthroid) 75 mcg DAILY@07 PO 12/11/16 07:00 01/06/17 05:20 Lisinopril (Prinivil) 10 mg DAILY PO 12/11/16 09:00 01/06/17 08:34 Hydromorphone HCl (Dilaudid Pf Inj) 1 mg Q3H PRN IV PUSH PAIN SCALE 5 TO 10 12/12/16 14:45 01/04/17 21:23 Nystatin (Mycostatin Liq) 5 ml QID SWISH-SWAL 12/19/16 18:00 01/06/17 20:41 Miscellaneous Information 1 Q3D T-DERMAL 12/20/16 18:00 12/26/16 18:00 Guaifenesin (Robitussin Liq) 600 mg BID PO 12/21/16 09:45 12/30/16 21:00 Patient Own Medication PT OWN MED: TRANXENE-T (CLORAZEPA... TID PO 12/23/16 13:00 Future hold 01/06/17 18:11 Pantoprazole Sodium (Protonix) 40 mg Q12HR PO 12/24/16 12:45 01/06/17 20:41 Ondansetron HCl (Zofran Inj) 4 mg Q4HR PRN IV PUSH N/V 12/24/16 18:00 01/02/17 12:59 Morphine Sulfate (Oramorph Sr) 15 mg BID PO 12/28/16 21:00 01/06/17 20:42 Oxycodone HCl (Roxicodone) 5 mg Q4H PRN PO PAIN SCALE 1 TO 4 12/28/16 14:30 01/06/17 18:11 Methylprednisolone Sodium Succinate (SoluMEDROL INJ) 40 mg Q12HR IV PUSH 01/01/17 09:00 01/06/17 20:42 Sodium Chloride (NS Flush) 5 ml Q21D IV FLUSH 01/02/17 05:00 01/02/17 05:55 Heparin Sodium (Porcine) (Heparin Central Flush) 500 units Q21D IV FLUSH 01/02/17 05:00 01/02/17 05:55 Sodium Chloride (NS Flush) 5 ml UNSCH PRN IV FLUSH SEE LABEL COMMENTS 01/02/17 05:00 01/02/17 16:50 Heparin Sodium (Porcine) (Heparin Central Flush) 250 units UNSCH PRN IV FLUSH FLUSH AFTER USING IV ACCESS 01/02/17 05:00 01/03/17 04:20 Vancomycin HCl 1250 mg/Sodium Chloride 262.5 ml @ 250 mls/hr Q24H IV 01/02/17 10:00 01/06/17 10:59 Furosemide (Lasix) 20 mg DAILY PO 01/05/17 11:00 01/05/17 12:24 Objective Remarks GENERAL: Well-nourished, well-developed patient. SKIN: Warm and dry. HEAD: Normocephalic. EYES: No scleral icterus. No injection or drainage. NECK: Supple, trachea midline. No JVD or lymphadenopathy. LYMPHATIC: No adenopathy. CARDIOVASCULAR: Regular rate and rhythm without murmurs. RESPIRATORY: Breath sounds equal bilaterally. No accessory muscle use. GASTROINTESTINAL: Abdomen soft, non-tender, nondistended. EXTREMITIES: No cyanosis, or edema. MUSCULOSKELETAL: Adequate muscle tone. NEUROLOGICAL: No obvious focal deficit. Awake, alert, and oriented x3. PSYCHIATRIC: Appropriate mood and affect; insight and judgment normal. Assessment/Plan Problem List: (1) Non-small cell lung cancer (NSCLC) ICD Codes: C34.90 - Malignant neoplasm of unspecified part of unspecified bronchus or lung Status: Acute Plan: --further treatment in clinic once improvement in current conditions History: diagnosed via CT-guided biopsy in June of 2016. PET/CT scan confirmed this disease to be Stage III-B. --received concurrent chemotherapy and radiation treatments. --had a total of four cycles of chemotherapy. --Follow-up imaging showed a residual lung lesion in the left upper lobe which was 1.8 x 2.4 x 3.8 cm. The patient was recommended two additional consolidation treatments but unfortunately due to her decline in performance status, she was not able to be given this treatment. (2) Dysphagia ICD Codes: R13.10 - Dysphagia, unspecified Status: Acute Plan: -- TPN off. -- Oral nutrition improving History --presents to [facility] with recurrent symptoms from her radiation esophagitis. --Due to significant dysphagia a PEG tube was placed. --had complications from the PEG tube insertion site. --++large amount of leakage and a copious amount of purulent drainage from the PEG tube insertion site. +concern for abdominal wall fistula. --EGD and stent placement and PEG placement on 12.24-->EGD showed Radiation esophagitis, Esophageal stricture, Gastrocutaneous fistula, Gastric ulcers --upper GI series, 12/23-->No evidence of fistula or obstruction. Small diverticulum along the distal esophagus. (3) Normocytic anemia ICD Codes: D64.9 - Anemia, unspecified Status: Acute Plan: monitor and transfuse as needed History: --patient became severely anemic with a hemoglobin in the 6 range and she was given 2 units of packed red blood cells. --no evidence of hemolysis. --likely losing blood through the GI tract. --also a component of malnutrition. --currently being seen by GI and further workup is ongoing. --ordered daily IV iron x 3 treatments. (4) Pain ICD Codes: R52 - Pain, unspecified Status: Acute Plan: --on IV Dilaudid p.r.n. 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 currently getting wound care. --has also been evaluated by Surgery and there are no surgical plans at this time. Assessment 76y/o female with a history of [id number]-bjwy lung cancer who was admitted to the hospital for complications from radiation esophagitis. h/o History of [id number] lung cancer, Stage III-B, status post concurrent chemotherapy and radiation treatment. Esophageal strictures status post dilatation x 4. Hypertension. Port placement. Lung biopsy. Hysterectomy. Tonsillectomy. PEG tube placement. Plan 1. Infusaport removed 2. PT/Nutrition 3. NSCLC Cancer Stage III d/w rn Montrell Montiel MD Jan 06, 2017 23:04
--- NOTE | 2017-01-06 23:22 | PD.ONC.PN ---
Subjective Subjective Remarks irritated PEG stoma says she is eating well and has good appetite breathing has improved no fevers/no cough Objective Data Date Time Temp Pulse Resp B/P (MAP) Pulse Ox O2 Delivery O2 Flow Rate FiO2 01/06/17 20:00 98.1 94 20 155/70 (98) 97 01/06/17 16:00 97.7 91 16 147/68 (94) 95 01/06/17 12:00 98.4 85 16 129/60 (83) 93 01/06/17 08:05 Nasal Cannula 1.50 01/06/17 08:00 97.6 91 18 151/78 (102) 96 01/06/17 04:00 97.5 86 18 125/55 (78) 93 01/06/17 00:00 98.0 87 18 136/62 (86) 96 Result Diagram: 01/05/17 0523 01/06/17 08 Laboratory Results Laboratory Tests Test 01/06/17 08:17 Creatinine 0.73 MG/DL Estimat Glomerular Filtration Rate 77 ML/MIN Vancomycin Level Trough 19.3 MCG/ML Culture Results Microbiology Date/Time Source Procedure Growth Status 01/04/17 12:05 Catheter Tip Other Wound Culture - Preliminary NO GROWTH IN 48 HOURS. Resulted Administered Medications Medications (Trade) Dose Ordered Sig/Alla Route PRN Reason Start Time Stop Time Status Last Admin Dose Admin Sodium Chloride (NS Flush) 2 ml BID IV FLUSH 12/10/16 21:00 01/06/17 20:42 Enoxaparin Sodium (Lovenox Inj) 40 mg Q24H SQ 12/10/16 22:45 Future hold 01/05/17 23:16 Amitriptyline HCl (Elavil) 25 mg HS PO 12/11/16 21:00 01/06/17 20:41 Levothyroxine Sodium (Synthroid) 75 mcg DAILY@07 PO 12/11/16 07:00 01/06/17 05:20 Lisinopril (Prinivil) 10 mg DAILY PO 12/11/16 09:00 01/06/17 08:34 Hydromorphone HCl (Dilaudid Pf Inj) 1 mg Q3H PRN IV PUSH PAIN SCALE 5 TO 10 12/12/16 14:45 01/04/17 21:23 Nystatin (Mycostatin Liq) 5 ml QID SWISH-SWAL 12/19/16 18:00 01/06/17 20:41 Miscellaneous Information 1 Q3D T-DERMAL 12/20/16 18:00 12/26/16 18:00 Guaifenesin (Robitussin Liq) 600 mg BID PO 12/21/16 09:45 12/30/16 21:00 Patient Own Medication PT OWN MED: TRANXENE-T (CLORAZEPA... TID PO 12/23/16 13:00 Future hold 01/06/17 18:11 Pantoprazole Sodium (Protonix) 40 mg Q12HR PO 12/24/16 12:45 01/06/17 20:41 Ondansetron HCl (Zofran Inj) 4 mg Q4HR PRN IV PUSH N/V 12/24/16 18:00 01/02/17 12:59 Morphine Sulfate (Oramorph Sr) 15 mg BID PO 12/28/16 21:00 01/06/17 20:42 Oxycodone HCl (Roxicodone) 5 mg Q4H PRN PO PAIN SCALE 1 TO 4 12/28/16 14:30 01/06/17 18:11 Methylprednisolone Sodium Succinate (SoluMEDROL INJ) 40 mg Q12HR IV PUSH 01/01/17 09:00 01/06/17 20:42 Sodium Chloride (NS Flush) 5 ml Q21D IV FLUSH 01/02/17 05:00 01/02/17 05:55 Heparin Sodium (Porcine) (Heparin Central Flush) 500 units Q21D IV FLUSH 01/02/17 05:00 01/02/17 05:55 Sodium Chloride (NS Flush) 5 ml UNSCH PRN IV FLUSH SEE LABEL COMMENTS 01/02/17 05:00 01/02/17 16:50 Heparin Sodium (Porcine) (Heparin Central Flush) 250 units UNSCH PRN IV FLUSH FLUSH AFTER USING IV ACCESS 01/02/17 05:00 01/03/17 04:20 Vancomycin HCl 1250 mg/Sodium Chloride 262.5 ml @ 250 mls/hr Q24H IV 01/02/17 10:00 01/06/17 10:59 Furosemide (Lasix) 20 mg DAILY PO 01/05/17 11:00 01/05/17 12:24 Objective Remarks GENERAL:nad SKIN: Warm and dry. CARDIOVASCULAR: Regular rate and rhythm without murmurs. RESPIRATORY: Breath sounds equal bilaterally. No accessory muscle use. GASTROINTESTINAL: Abdomen soft, non-tender, nondistended. EXTREMITIES: No cyanosis, or edema. Assessment/Plan Problem List: (1) Non-small cell lung cancer (NSCLC) ICD Codes: C34.90 - Malignant neoplasm of unspecified part of unspecified bronchus or lung Status: Acute Plan: --further treatment in clinic once improvement in current conditions History: diagnosed via CT-guided biopsy in June of 2016. PET/CT scan confirmed this disease to be Stage III-B. --received concurrent chemotherapy and radiation treatments. --had a total of four cycles of chemotherapy. --Follow-up imaging showed a residual lung lesion in the left upper lobe which was 1.8 x 2.4 x 3.8 cm. The patient was recommended two additional consolidation treatments but unfortunately due to her decline in performance status, she was not able to be given this treatment. (2) Dysphagia ICD Codes: R13.10 - Dysphagia, unspecified Status: Acute Plan: -- TPN off. -- Oral nutrition improving History --presents to [facility] with recurrent symptoms from her radiation esophagitis. --Due to significant dysphagia a PEG tube was placed. --had complications from the PEG tube insertion site. --++large amount of leakage and a copious amount of purulent drainage from the PEG tube insertion site. +concern for abdominal wall fistula. --EGD and stent placement and PEG placement on 12.24-->EGD showed Radiation esophagitis, Esophageal stricture, Gastrocutaneous fistula, Gastric ulcers --upper GI series, 12/23-->No evidence of fistula or obstruction. Small diverticulum along the distal esophagus. (3) Normocytic anemia ICD Codes: D64.9 - Anemia, unspecified Status: Acute Plan: monitor and transfuse as needed History: --patient became severely anemic with a hemoglobin in the 6 range and she was given 2 units of packed red blood cells. --no evidence of hemolysis. --likely losing blood through the GI tract. --also a component of malnutrition. --currently being seen by GI and further workup is ongoing. --ordered daily IV iron x 3 treatments. (4) Pain ICD Codes: R52 - Pain, unspecified Status: Acute Plan: --on IV Dilaudid p.r.n. 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 currently getting wound care. --has also been evaluated by Surgery and there are no surgical plans at this time. Assessment 76y/o female with a history of oyd-qnfoh-nedx lung cancer who was admitted to the hospital for complications from radiation esophagitis. h/o History of [id number] lung cancer, Stage III-B, status post concurrent chemotherapy and radiation treatment. Esophageal strictures status post dilatation x 4. Hypertension. Port placement. Lung biopsy. Hysterectomy. Tonsillectomy. PEG tube placement. Plan 1. PT/Nutrition 2. NSCLC Cancer Stage III 3. Getting closer to being discharge to rehab or home with home health/pt d/w Montrell Plummer MD Jan 06, 2017 23:22
[2017-01-06] MEDS: ENOXAPARIN SODIUM 40 MG/0.4 ML SYRINGE SQ SCH (23:44)
[2017-01-07 04:00] VITALS: BP 122/56; PULSE 80; RESP 18; TEMP 98.3; O2SAT 91
[2017-01-07] MEDS: LEVOTHYROXINE SODIUM 75 MCG TAB PO SCH (05:11)
[2017-01-07 08:00] VITALS: BP 136/62; PULSE 83; RESP 18; TEMP 97; O2SAT 94
[2017-01-07] MEDS: CLORAZEPATE PO SCH ×2 (08:52→12:24)
[2017-01-07] MEDS: LISINOPRIL 10 MG TAB PO SCH (08:52)
[2017-01-07] MEDS: [UNRECOGNIZED DRUG - OTHER] PO SCH ×2 (08:52→12:24)
[2017-01-07] MEDS: PANTOPRAZOLE SOD 40 MG DELAYED RELEASE TAB PO SCH (08:53)
[2017-01-07] MEDS: FUROSEMIDE 20 MG TAB PO SCH (08:53)
[2017-01-07] MEDS: MORPHINE SULFATE 15 MG CONTROLLED RELEASE TAB PO SCH (08:54)
[2017-01-07] MEDS: methylPREDNISolone SOD SUCC 40 MG/1 ML VIAL IV PUSH SCH (08:55)
[2017-01-07] MEDS: SODIUM CHLORIDE 0.9% FLUSH 10 ML FLUSH IV FLUSH SCH (08:55)
[2017-01-07] MEDS: guaiFENesin SOLUTION 200 MG/10 ML CUP PO SCH (09:00)
[2017-01-07] MEDS: NYSTATIN SUSP 500,000 U/5 ML CUP SWISH-SWAL SCH ×2 (09:02→12:25)
[2017-01-07] MEDS: VANCOMYCIN INJ 1,250 MG in SODIUM CHLOR 0.9% 250 ML INJ 250 ML IV SCH (10:16)
[2017-01-07 12:00] VITALS: BP 159/70; PULSE 90; RESP 20; TEMP 97.6; O2SAT 93
--- NOTE | 2017-01-07 12:37 | HHI.PR ---
Subjective Remarks Ms. Valdovinos is a 76 year old female with a history of NSCLC, radiation esophagitis presents to the ED due to complication of the PEG tube insertion site. PEG Tube was removed recently due to large leakage. 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 at this time status post Right Port removal, her Daughter in the room Miss Juanita Sullivan. states she does not want to take replacement for Potassium IV will continue Potassium by mouth. 01/06: Recommended by ID specialist with diagnosis of Bacteremia gram positive, Staph epi, suspected infusaport catheter infection status post Port removal to continue Vancomycin until 01/12/17, PICC ordered for antibiotics. discussed with patient in the room and her Daughter explained about the relation between by mouth Lasix to IV Lasix. the patient states she understand. No nausea,vomit or diarrhea tolerating diet. 01/07: Seen in her bedroom recommended already for discharge by GI specialist okay to discharge by ID specialist will follow with Doctor Nicolás as outpatient and with Doctor Luther for ID, no nausea, vomit or diarrhea. Objective Vital Signs Date Time Temp Pulse Resp B/P (MAP) Pulse Ox O2 Delivery O2 Flow Rate FiO2 01/07/17 08:00 97.0 83 18 136/62 (86) 94 01/07/17 04:00 98.3 80 18 122/56 (78) 91 01/06/17 20:00 98.1 94 20 155/70 (98) 97 01/06/17 16:00 97.7 91 16 147/68 (94) 95 I/O 01/06/17 01/06/17 01/06/17 01/07/17 01/07/17 01/07/17 06:59 14:59 22:59 06:59 14:59 22:59 Intake Total 600 ml Output Total 1000 ml Balance 600 ml -1000 ml Intake Oral 600 ml Output Urine Total 1000 ml # Voids 8 5 # Bowel Movements 2 1 Result Diagram: 01/05/17 0501/06/17 0817 Imaging Last Impressions Chest X-Ray 01/04/17 0600 Signed Impressions: Service Date/Time: Wednesday, January 04, 2017 05:46 - CONCLUSION: No acute cardiopulmonary abnormality is identified. The left basilar opacity documented previously has resolved. Og Miranda MD CT Angiography 12/29/16 0000 Signed Impressions: Service Date/Time: December 01:02 - CONCLUSION: 1. Negative for pulmonary embolus. 2. Esophageal stent present with abnormal soft tissue in the mediastinum around the esophageal stent. 3. Stable 2.3 cm nodule upper left lung. 4. Development of bilateral pleural effusions, left greater than right with partial loculation on the left side and compressive atelectasis in both lungs. Tio Espinoza MD GI Procedure 12/24/16 1119 Signed Impressions: Service Date/Time: Saturday, December 24, 2016 11:24 - CONCLUSION: 1. Esophageal stent in excellent position. Clifford Machado MD Upper GI Series 12/23/16 0000 Signed Impressions: Service Date/Time: December 09:22 - CONCLUSION: 1. No evidence of fistula or obstruction. 2. Small diverticulum along the distal esophagus. Louie Conrad MD Abdomen/Pelvis CT 12/10/16 0000 Signed Impressions: Service Date/Time: Saturday, December 10, 2016 20:17 - CONCLUSION: 1. Focal thickening of the left rectus muscle with sinus tract extending from the lumen of the stomach into the rectus, presumably at site of prior percutaneous gastrostomy. 2. Moderate-sized left pleural effusion. No evidence of ascites. 3. 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 4. Sigmoid diverticulosis without radiographic evidence of diverticulitis. Armando Harrington MD Procedures 12/17/2016 EGD with clip placement Other Results Laboratory Tests Test 12/10/16 13:00 12/11/16 05:16 12/12/16 07:20 12/23/16 07:00 Activated Partial Thromboplast Time 27.9 SEC Lipase 48 U/L Lactic Acid Level 1.3 mmol/L Band Neutrophils % 2 % Metamyelocytes 2 % Haptoglobin 225 MG/DL Prothrombin Time 11.1 SEC Prothromb Time International Ratio 1.0 RATIO Iron Level 31 MCG/DL Total Iron Binding Capacity 188 MCG/DL Percent Iron Saturation 16.5 % Ferritin 70 NG/ML Direct Bilirubin 0.1 MG/DL Indirect Bilirubin 0.3 MG/DL Lactate Dehydrogenase 133 U/L Vitamin B12 Level 692 PG/ML Red Blood Cell Folate 732 Test 12/25/16 06:04 12/25/16 12:30 12/29/16 21:45 12/30/16 10:41 Protein Corrected Calcium 7.9 MG/DL Ionized Calcium 5.0 mg/dL Nasal Screen MRSA (PCR) MRSA NOT DETECTED B-Type Natriuretic Peptide 371 PG/ML Test 12/30/16 13:46 12/31/16 05:10 01/02/17 06:03 01/04/17 09:46 Total Creatine Kinase 133 U/L Creatine Kinase MB 1.5 NG/ML Troponin I 0.03 NG/ML Blood Gas Puncture Site LT RADIAL Blood Gas Patient Temperature 98.6 Blood Gas HCO3 29 mmol/L Blood Gas Base Excess 4.8 mmol/L Blood Gas Oxygen Saturation 91 % Arterial Blood pH 7.42 Arterial Blood Partial Pressure CO2 46 mmHg Arterial Blood Partial Pressure O2 71 mmHg Arterial Blood Oxygen Content 14.4 Vol % Arterial Blood Carboxyhemoglobin 1.9 % Arterial Blood Methemoglobin 1.0 % Blood Gas Hemoglobin 11.2 G/DL Oxygen Delivery Device HI JORJE NC Blood Gas Liter Flow 15 L/M Blood Gas Inspired Oxygen 34 % Random Vancomycin Level 18.8 COMMENT Eosinophils % 1 % Hemoglobin A1c 4.8 % Blood Urea Nitrogen 32 MG/DL Creatinine 0.91 MG/DL Random Glucose 97 MG/DL Total Protein 8.1 GM/DL Albumin 2.9 GM/DL Calcium Level 8.9 MG/DL Phosphorus Level 3.3 MG/DL Magnesium Level 2.5 MG/DL Alkaline Phosphatase 187 U/L Aspartate Amino Transf (AST/SGOT) 27 U/L Alanine Aminotransferase (ALT/SGPT) 45 U/L Total Bilirubin 0.5 MG/DL Sodium Level 141 MEQ/L Potassium Level 2.9 MEQ/L Chloride Level 99 MEQ/L Carbon Dioxide Level 29.8 MEQ/L Free Thyroxine 1.25 NG/DL Thyroid Stimulating Hormone 3rd Gen 8.570 uIU/ML Test 01/05/17 05:23 01/06/17 08:17 White Blood Count 12.6 TH/MM3 Red Blood Count 4.66 MIL/MM3 Hemoglobin 12.8 GM/DL Hematocrit 40.5 % Mean Corpuscular Volume 87.1 FL Mean Corpuscular Hemoglobin 27.5 PG Mean Corpuscular Hemoglobin Concent 31.6 % Red Cell Distribution Width 22.1 % Platelet Count 331 TH/MM3 Mean Platelet Volume 8.6 FL Neutrophils (%) (Auto) 87.7 % Lymphocytes (%) (Auto) 9.3 % Monocytes (%) (Auto) 2.9 % Eosinophils (%) (Auto) 0.0 % Basophils (%) (Auto) 0.1 % Neutrophils # (Auto) 11.1 TH/MM3 Lymphocytes # (Auto) 1.2 TH/MM3 Monocytes # (Auto) 0.4 TH/MM3 Eosinophils # (Auto) 0.0 TH/MM3 Basophils # (Auto) 0.0 TH/MM3 CBC Comment AUTO DIFF Differential Total Cells Counted 100 Neutrophils % (Manual) 83 % Lymphocytes % 8 % Monocytes % 6 % Neutrophils # (Manual) 10.8 TH/MM3 Myelocytes 3 % Differential Comment FINAL DIFF MANUAL Platelet Estimate NORMAL Platelet Morphology Comment ENLARGED Ovalocytes 1+ Acanthocytes OCC Blood Urea Nitrogen 38 MG/DL Creatinine 0.85 MG/DL 0.73 MG/DL Random Glucose 141 MG/DL Total Protein 7.3 GM/DL Albumin 2.7 GM/DL Calcium Level 8.8 MG/DL Alkaline Phosphatase 159 U/L Aspartate Amino Transf (AST/SGOT) 24 U/L Alanine Aminotransferase (ALT/SGPT) 39 U/L Total Bilirubin 0.4 MG/DL Sodium Level 141 MEQ/L Potassium Level 4.3 MEQ/L Chloride Level 104 MEQ/L Carbon Dioxide Level 29.4 MEQ/L Anion Gap 8 MEQ/L Estimat Glomerular Filtration Rate 77 ML/MIN Vancomycin Level Trough 19.3 MCG/ML Objective Remarks GENERAL: AOx3, NAD. SKIN: Warm and dry. HEAD: Normocephalic. EYES: No scleral icterus. No injection or drainage. NECK: Supple, trachea midline. No JVD or lymphadenopathy. CARDIOVASCULAR: Regular rate and rhythm without murmurs, gallops, or rubs. RESPIRATORY: Breath sounds equal bilaterally. No accessory muscle use. Right upper chest Port removed. GASTROINTESTINAL: soft non tender, high drainage from PEG tube area. MUSCULOSKELETAL: No cyanosis, or edema. BACK: Nontender without obvious deformity. No CVA tenderness. Medications and IVs Current Medications Medications (Trade) Dose Ordered Sig/Alla Route Start Time Stop Time Status Last Admin (NS Flush) 2 ml BID IV FLUSH 12/10/16 21:00 01/07/17 08:55 (Lovenox Inj) 40 mg Q24H SQ 12/10/16 22:45 Future hold 01/06/17 23:44 (Elavil) 25 mg HS PO 12/11/16 21:00 01/06/17 20:41 (Synthroid) 75 mcg DAILY@07 PO 12/11/16 07:00 01/07/17 05:11 (Prinivil) 10 mg DAILY PO 12/11/16 09:00 01/07/17 08:52 (Dilaudid Pf Inj) 1 mg Q3H PRN IV PUSH 12/12/16 14:45 01/04/17 21:23 (Mycostatin Liq) 5 ml QID SWISH-SWAL 12/19/16 18:00 01/07/17 12:25 Miscellaneous Information 1 Q3D T-DERMAL 12/20/16 18:00 12/26/16 18:00 (Robitussin Liq) 600 mg BID PO 12/21/16 09:45 12/30/16 21:00 Patient Own Medication PT OWN MED: TRANXENE-T (CLORAZEPA... TID PO 12/23/16 13:00 Future hold 01/07/17 12:24 (Protonix) 40 mg Q12HR PO 12/24/16 12:45 01/07/17 08:53 (Zofran Inj) 4 mg Q4HR PRN IV PUSH 12/24/16 18:00 01/02/17 12:59 (Oramorph Sr) 15 mg BID PO 12/28/16 21:00 01/07/17 08:54 (Roxicodone) 5 mg Q4H PRN PO 12/28/16 14:30 01/07/17 10:21 Pharmacy Profile Note 0 ml @ 0 mls/hr UNSCH OTHER 12/30/16 02:30 (Duoneb Neb) 1 ampule Q2HR NEB PRN INH 12/30/16 12:15 (SoluMEDROL INJ) 40 mg Q12HR IV PUSH 01/01/17 09:00 01/07/17 08:55 (NS Flush) 5 ml Q21D IV FLUSH 01/02/17 05:00 01/02/17 05:55 (Heparin Central Flush) 500 units Q21D IV FLUSH 01/02/17 05:00 01/02/17 05:55 (NS Flush) 5 ml UNSCH PRN IV FLUSH 01/02/17 05:00 01/02/17 16:50 (Heparin Central Flush) 250 units UNSCH PRN IV FLUSH 01/02/17 05:00 01/03/17 04:20 Vancomycin HCl 1250 mg/Sodium Chloride 262.5 ml @ 250 mls/hr Q24H IV 01/02/17 10:00 01/07/17 10:16 (Lasix) 20 mg DAILY PO 01/05/17 11:00 01/07/17 08:53 A/P Problem List: (1) 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 Valdovinos is a 76 year old female with a history of NSCLC, radiation esophagitis presents to the ED due to complication of the PEG tube insertion site. PEG Tube was removed recently due to large leakage. 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 - Acute respiratory failure - hypoxic, Improved. - Probable pulmonary edema decreased dose of Lasix to half by mouth. - COPD exacerbation - Improving continue Bronchodilator, Mucolytic and incentive spirometry. - Abdominal wall fistula high drainage from the area. reconsulted GI specialist by ID specialist. - Radiation induced esophageal stricture - Likely a complication of PEG Tube placement. - s/p esophageal stent placement by IR on 12/24/2016, PEG tube placement by GI on 12/24/2016. - Patient is off TPN and currently tolerating oral feeding well. - Gram positive Bacteremia - ID following. Patient is currently on Vancomycin, Port removed 01/04/17 - Repeat Blood cultures from 12/31/2016 Negative -Vancomycin will continue until 01/12/17, PICC line ordered for antibiotic management. - History of Non-small cell lung cancer Hematology and archives specialist following. - s/p chemo, radiation therapy. - Hypokalemia - replaced - Hypothyroidism - continue Levothyroxine 75mcg Qday. - Hypertension - continue Lisinopril 10mg Qday. Full code. Lovenox. Discussed with Patient, Her Daughter and nurse in the room, all questions answered to the best of my abilities. Discharge Planning Okay to discharge Home with [facility] Syed Mensah MD Jan 07, 2017 12:37
[2017-01-07] MEDS ORDERED: OXYC-392 PO (13:26)
[2017-01-07] MEDS ORDERED: MORP1TAB24 PO (13:26)
[2017-01-07] MEDS ORDERED: FURO20TA PO (13:26)
[2017-01-07] MEDS ORDERED: SYMB80AE INH (13:26)
[2017-01-07] MEDS ORDERED: PANT40TA3 PO (13:26)
--- NOTE | 2017-01-07 14:35 | HHI.DS ---
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 Valdovinos is a pleasant 76 year old female with a history of NSCLC s/ p chemo-radiation and subsequent development of radiation esophagitis who presents to the ED on 12/10/2016 due to PEG site erythema, significant drainage. Patient underwent esophageal dilatation by GI followed by PEG tube placement in November 2016. She went home and continued PEG tube feeding per php wordpress developer recommendations. Patient, however, started having abdominal discomfort. She noticed her tube feed is leaking in significant amount from the PEG tube insertion site. She was evaluated by GI clinic where the PEG tube was removed. Due to concern over cellulitis, abx was given and patient went home hoping for healing of her PEG tube insertion site. Unfortunately, copious amount of fluid including any oral intake started draining from the PEG tube insertion site. She was evaluated by GI clinic on 12/10/2016 and was instructed to come to the hospital for further management. Patient denies any fever, chills. Denies any dysuria, hematuria. She has been unable to maintain appreciable amount of oral food intake. No shortness of breath, cough, chest pain. CBC/BMP: 01/05/17 0523 01/06/17 0817 Significant Findings Laboratory Tests Test 01/05/17 05:23 01/06/17 08:17 White Blood Count 12.6 TH/MM3 (4.0-11.0) Mean Corpuscular Hemoglobin Concent 31.6 % (32.0-36.0) Red Cell Distribution Width 22.1 % (11.6-17.2) Neutrophils (%) (Auto) 87.7 % (16.0-70.0) Neutrophils # (Auto) 11.1 TH/MM3 (1.8-7.7) Neutrophils % (Manual) 83 % (16-70) Lymphocytes % 8 % (9-44) Neutrophils # (Manual) 10.8 TH/MM3 (1.8-7.7) Myelocytes 3 % (0-0) Platelet Morphology Comment ENLARGED (NORMAL) Ovalocytes 1+ (NORMAL) Acanthocytes OCC (NORMAL) Blood Urea Nitrogen 38 MG/DL (7-18) Random Glucose 141 MG/DL (74-106) Albumin 2.7 GM/DL (3.4-5.0) Alkaline Phosphatase 159 U/L (45-117) Estimat Glomerular Filtration Rate 65 ML/MIN (>89) 77 ML/MIN (>89) Vancomycin Level Trough 19.3 MCG/ML (5.0-10.0) Imaging Last Impressions Chest X-Ray 01/04/17 0600 Signed Impressions: Service Date/Time: Wednesday, January 04, 2017 05:46 - CONCLUSION: No acute cardiopulmonary abnormality is identified. The left basilar opacity documented previously has resolved. Og Miranda MD CT Angiography 12/29/16 0000 Signed Impressions: Service Date/Time: December 01:02 - CONCLUSION: 1. Negative for pulmonary embolus. 2. Esophageal stent present with abnormal soft tissue in the mediastinum around the esophageal stent. 3. Stable 2.3 cm nodule upper left lung. 4. Development of bilateral pleural effusions, left greater than right with partial loculation on the left side and compressive atelectasis in both lungs. Tio Espinoza MD GI Procedure 12/24/16 1119 Signed Impressions: Service Date/Time: Saturday, December 24, 2016 11:24 - CONCLUSION: 1. Esophageal stent in excellent position. Clifford Machado MD Upper GI Series 12/23/16 0000 Signed Impressions: Service Date/Time: December 09:22 - CONCLUSION: 1. No evidence of fistula or obstruction. 2. Small diverticulum along the distal esophagus. Louie Conrad MD Abdomen/Pelvis CT 12/10/16 0000 Signed Impressions: Service Date/Time: Saturday, December 10, 2016 20:17 - CONCLUSION: 1. Focal thickening of the left rectus muscle with sinus tract extending from the lumen of the stomach into the rectus, presumably at site of prior percutaneous gastrostomy. 2. Moderate-sized left pleural effusion. No evidence of ascites. 3. 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 4. Sigmoid diverticulosis without radiographic evidence of diverticulitis. Armando Harrington MD PE at Discharge GENERAL: AOx3, NAD. SKIN: Warm and dry. HEAD: Normocephalic. EYES: No scleral icterus. No injection or drainage. NECK: Supple, trachea midline. No JVD or lymphadenopathy. CARDIOVASCULAR: Regular rate and rhythm without murmurs, gallops, or rubs. RESPIRATORY: Breath sounds equal bilaterally. No accessory muscle use. Right upper chest Port removed. GASTROINTESTINAL: soft non tender, high drainage from PEG tube area. MUSCULOSKELETAL: No cyanosis, or edema. BACK: Nontender without obvious deformity. No CVA tenderness. Hospital Course Patient Name: Alina Valdovinos Unit Number: [id number] Date of : 1940 Patient Status: Admitted Inpatient Attending Doctor: Syed Mensah MD Subjective Subjective Remarks Ms. Valdovinos is a 76 year old female with a history of NSCLC, radiation esophagitis presents to the ED due to complication of the PEG tube insertion site. PEG Tube was removed recently due to large leakage. 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 at this time status post Right Port removal, her Daughter in the room Miss Juanita Sullivan. states she does not want to take replacement for Potassium IV will continue Potassium by mouth. 01/06: Recommended by ID specialist with diagnosis of Bacteremia gram positive, Staph epi, suspected infusaport catheter infection status post Port removal to continue Vancomycin until 01/12/17, PICC ordered for antibiotics. discussed with patient in the room and her Daughter explained about the relation between by mouth Lasix to IV Lasix. the patient states she understand. No nausea,vomit or diarrhea tolerating diet. 01/07: Seen in her bedroom recommended already for discharge by GI specialist okay to discharge by ID specialist will follow with Doctor Monzon as outpatient and with Doctor Luther for ID, no nausea, vomit or diarrhea. 12/17/2016 EGD with clip placement Assessment and Plan Ms. Valdovinos is a 76 year old female with a history of NSCLC, radiation esophagitis presents to the ED due to complication of the PEG tube insertion site. PEG Tube was removed recently due to large leakage. 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 - Acute respiratory failure - hypoxic, Improved. - Probable pulmonary edema decreased dose of Lasix to half by mouth. - COPD exacerbation - Improving continue Bronchodilator, Mucolytic and incentive spirometry. - Abdominal wall fistula high drainage from the area. reconsulted GI specialist by ID specialist. - Radiation induced esophageal stricture - Likely a complication of PEG Tube placement. - s/p esophageal stent placement by IR on 12/24/2016, PEG tube placement by GI on 12/24/2016. - Patient is off TPN and currently tolerating oral feeding well. - Gram positive Bacteremia - ID following. Patient is currently on Vancomycin, Port removed 01/04/17 - Repeat Blood cultures from 12/31/2016 Negative -Vancomycin will continue until 01/12/17, PICC line ordered for antibiotic management. - History of Non-small cell lung cancer Hematology and auditing specialist following. - s/p chemo, radiation therapy. - Hypokalemia - replaced - Hypothyroidism - continue Levothyroxine 75mcg Qday. - Hypertension - continue Lisinopril 10mg Qday. Full code. Lovenox. Discussed with Patient, Her Daughter and nurse in the room, all questions answered to the best of my abilities. Discharge Planning Okay to discharge Home with [facility] Pt Condition on Discharge: Stable Discharge Disposition: Disch w/ Home Health Serv Discharge Time: > 30 minutes Discharge Instructions DIET: Follow Instructions for: Heart Healthy Diet Activities you can perform: Regular-No Restrictions Syed Mensah MD Jan 07, 2017 14:35
[2017-01-07] MEDS ORDERED: PRED10 PO (14:39)
[2017-01-07 15:40] VITALS: BP 139/72; PULSE 124; RESP 16; TEMP 97.2; O2SAT 96
--- NOTE | 2017-01-07 22:43 | PD.ONC.PN ---
Subjective Subjective Remarks Patient examined earlier in the doing clinically doing much better ok to d/c from oncology standpoint f/u in clinic in 2-3 weeks d/w rn d/w patient o/n events reviewed Objective Data Date Time Temp Pulse Resp B/P (MAP) Pulse Ox O2 Delivery O2 Flow Rate FiO2 01/07/17 15:40 97.2 124 16 139/72 (94) 96 01/07/17 12:00 97.6 90 20 159/70 (99) 93 01/07/17 08:00 97.0 83 18 136/62 (86) 94 01/07/17 04:00 98.3 80 18 122/56 (78) 91 01/07/17 01/07/17 01/07/17 07:00 15:00 23:00 Intake Total 610 ml Output Total 1000 ml Balance -1000 ml 610 ml Result Diagram: 01/05/1723 01/06/17 0817 Objective Remarks GENERAL: nad SKIN: Warm and dry. CARDIOVASCULAR: Regular rate and rhythm without murmurs. RESPIRATORY: Breath sounds equal bilaterally. No accessory muscle use. GASTROINTESTINAL: Abdomen soft, non-tender, nondistended. EXTREMITIES: No cyanosis, or edema. Assessment/Plan Problem List: (1) Non-small cell lung cancer (NSCLC) ICD Codes: C34.90 - Malignant neoplasm of unspecified part of unspecified bronchus or lung Status: Acute Plan: --further treatment in clinic once improvement in current conditions History: diagnosed via CT-guided biopsy in June of 2016. PET/CT scan confirmed this disease to be Stage III-B. --received concurrent chemotherapy and radiation treatments. --had a total of four cycles of chemotherapy. --Follow-up imaging showed a residual lung lesion in the left upper lobe which was 1.8 x 2.4 x 3.8 cm. The patient was recommended two additional consolidation treatments but unfortunately due to her decline in performance status, she was not able to be given this treatment. (2) Dysphagia ICD Codes: R13.10 - Dysphagia, unspecified Status: Acute Plan: -- TPN off. -- Oral nutrition improving History --presents to [facility] with recurrent symptoms from her radiation esophagitis. --Due to significant dysphagia a PEG tube was placed. --had complications from the PEG tube insertion site. --++large amount of leakage and a copious amount of purulent drainage from the PEG tube insertion site. +concern for abdominal wall fistula. --EGD and stent placement and PEG placement on 12.24-->EGD showed Radiation esophagitis, Esophageal stricture, Gastrocutaneous fistula, Gastric ulcers --upper GI series, 12/23-->No evidence of fistula or obstruction. Small diverticulum along the distal esophagus. (3) Normocytic anemia ICD Codes: D64.9 - Anemia, unspecified Status: Acute Plan: monitor and transfuse as needed History: --patient became severely anemic with a hemoglobin in the 6 range and she was given 2 units of packed red blood cells. --no evidence of hemolysis. --likely losing blood through the GI tract. --also a component of malnutrition. --currently being seen by GI and further workup is ongoing. --ordered daily IV iron x 3 treatments. (4) Pain ICD Codes: R52 - Pain, unspecified Status: Acute Plan: --on IV Dilaudid p.r.n. 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 currently getting wound care. --has also been evaluated by Surgery and there are no surgical plans at this time. Assessment 76y/o female with a history of [id number] lung cancer who was admitted to the hospital for complications from radiation esophagitis. h/o History of [id number] lung cancer, Stage III-B, status post concurrent chemotherapy and radiation treatment. Esophageal strictures status post dilatation x 4. Hypertension. Port placement. Lung biopsy. Hysterectomy. Tonsillectomy. PEG tube placement. Plan 1. PT/Nutrition 2. NSCLC Cancer Stage III 3. Ok to d/c Montrell Montiel MD Jan 07, 2017 22:43
[2017-01-08] MEDS ORDERED: predniSONE 20 MG TAB PO SCH (09:00)
--- NOTE | 2017-01-11 09:34 | RADRPT ---
EXAM DATE/TIME: 01/04/2017 00:00 [place] COMPARISON: No previous studies available for comparison. INDICATIONS : Patient is in need of removal of existing right sided Infusaport due to infection. MEDICAL HISTORY : History of non small cell lung cancer, esophogitis, esophogeal strictures, HTN, COPD, left pleural ef fusion, abdominal wall fistula, acute respiratory failure, hypothyroidism, HLD, macular degeneration. SURGICAL HISTORY : History of G-tube placement, port placement, esophogeal dilitation, lymph node biopsy, pleural biopsy , EGD, tonsillectomy, hysterectomy, colonoscopy, tubal ligation. ENCOUNTER: Initial ACUITY: 1 month PAIN SCORE: 0/10 SEDATION TIME: 30 minutes 1.) 2 mg midazolam (Versed) IV 2.) 150 mcg fentanyl (Sublimaze) IV Prophylactic antibiotics were administered with appropriate pre-procedure timing. Vancomycin within 2 hrs of procedure, Ancef (or alternative) within 1 hr of procedure. PROCEDURE : 1. Removal of [id number]. 2. Conscious sedation with continuous EKG and oximetry monitoring. The risk, benefits and potential complications of [id number] removal were discussed. Written conse nt was obtained. The patient was placed supine. The chest wall was prepped in sterile fashion. Full sterile techniqu e was used, including cap, mask, sterile gloves and gown, and a large sterile sheet. Hand hygiene an d 2% chlorhexidine and/or Betadine/alcohol prep was utilized per protocol for cutaneous antisepsis. The skin and subcutaneous tissues were infiltrated with local anesthetic solution. A small incision w as made, the subcutaneous pocket was opened. The port was dissected from the subcutaneous tissues and easily removed in one piece. The pocket incision was closed with subcuticular Vicryl suture. Steri -Strips were applied. Conscious sedation was performed with the prescribed dosages and duration as above in the presence of an independent trained radiology nurse to assist in the monitoring of the patient. EKG and oximetry remained stable throughout the procedure. The patient tolerated the procedure well and there were no complications. The patient was sent to post anesthesia recovery in stable condition. CONCLUSION: Uncomplicated port removal as above. Og Joya MD on January 11, 2017 at 9:32 Board Certified Radiologist. This report was verified electronically.
[2017-02-21] MEDS ORDERED: CLOR3.755 PO (15:41)
[2017-02-21] MEDS ORDERED: ESTR0.1D3 T-DERMAL (15:41)
[2017-02-21] MEDS ORDERED: CLAR10CA3 PO (15:43)
== END 2017-01-07 16:38 | disposition home health service (06) | DRG 326 ==
LOC: NEPE 11:55 → NEDA 14:52 → UNDOADMOB 14:56 → NEDA 14:56 → OBSVTOIN 14:57 → INTOOBSV 14:57 → N07A 18:35 → HIMW 12-29 21:40 → HCIN 01-01 03:00 → N05B 01-03 18:43
PROVIDERS: ADMIT Internal Medicine; ATTEND Internal Medicine
PROC: 3E0336Z Introduction of Nutritional Substance into Peripheral Vein, Percutaneous Approach (ICD-10-PCS; 2016-12-11)
PROC: 0DV Gastrointestinal System, Restriction (ICD-10-PCS; principal; 2016-12-17 15:10)
PROC: 30233N1 Transfusion of Nonautologous Red Blood Cells into Peripheral Vein, Percutaneous Approach (ICD-10-PCS; 2016-12-22)
PROC: 0DH68UZ Insertion of Feeding Device into Stomach, Via Natural or Artificial Opening Endoscopic (ICD-10-PCS; 2016-12-24)
PROC: 0D758DZ Dilation of Esophagus with Intraluminal Device, Via Natural or Artificial Opening Endoscopic (ICD-10-PCS; 2016-12-24)
PROC: 0JPTXXZ Removal of Tunneled Vascular Access Device from Trunk Subcutaneous Tissue and Fascia, External Approach (ICD-10-PCS; 2017-01-04)
DX: K94.29 Other complications of gastrostomy (principal); J96.01 Acute respiratory failure with hypoxia; J81.1 Chronic pulmonary edema; J90 Pleural effusion, not elsewhere classified; E87.3 Alkalosis; K31.6 Fistula of stomach and duodenum; E46 Unspecified protein-calorie malnutrition; L03.311 Cellulitis of abdominal wall; B37.0 Candidal stomatitis; C77.1 Secondary and unspecified malignant neoplasm of intrathoracic lymph nodes; C34.12 Malignant neoplasm of upper lobe, left bronchus or lung; J44.1 Chronic obstructive pulmonary disease with (acute) exacerbation; T80.211A Bloodstream infection due to central venous catheter, initial encounter; K94.22 Gastrostomy infection; E83.39 Other disorders of phosphorus metabolism; E83.51 Hypocalcemia; I10 Essential (primary) hypertension; K22.2 Esophageal obstruction; E03.9 Hypothyroidism, unspecified; E78.5 Hyperlipidemia, unspecified; E87.6 Hypokalemia; K94.23 Gastrostomy malfunction; K21.0 Gastro-esophageal reflux disease with esophagitis; K57.30 Diverticulosis of large intestine without perforation or abscess without bleeding; R13.19 Other dysphagia; H35.30 Unspecified macular degeneration; K63.89 Other specified diseases of intestine; E86.0 Dehydration; B96.89 Other specified bacterial agents as the cause of diseases classified elsewhere; Y84.2 Radiological procedure and radiotherapy as the cause of abnormal reaction of the patient, or of later complication, without mention of misadventure at the time of the procedure; D50.9 Iron deficiency anemia, unspecified; K25.9 Gastric ulcer, unspecified as acute or chronic, without hemorrhage or perforation; R00.0 Tachycardia, unspecified; E87.70 Fluid overload, unspecified; D63.8 Anemia in other chronic diseases classified elsewhere; F41.9 Anxiety disorder, unspecified; Y83.3 Surgical operation with formation of external stoma as the cause of abnormal reaction of the patient, or of later complication, without mention of misadventure at the time of the procedure; Z68.24 Body mass index [BMI] 24.0-24.9, adult; Z80.0 Family history of malignant neoplasm of digestive organs; Z80.3 Family history of malignant neoplasm of breast; Z88.2 Allergy status to sulfonamides; Z87.891 Personal history of nicotine dependence; Z92.21 Personal history of antineoplastic chemotherapy; Z92.3 Personal history of irradiation
CPT/HCPCS: 36430; 36569; 36590; 36600; 71010; 71275; 74177; 74240; 76000; 76937; 80048; 80053; 80202; 82247; 82248; 82330; 82550; 82552; 82565; 82607; 82728; 82747; 82805; 82948; 83010; 83036; 83540; 83550; 83605; 83615; 83690; 83735; 83880; 84100; 84132; 84155; 84439; 84443; 84484; 85007; 85014; 85018; 85025; 85027; 85610; 85730; 86403; 86850; 86880; 86900; 86901; 86920; 87040; 87070; 87071; 87077; 87086; 87186; 87205; 87449; 87641; 93005; 93306; 94150; 94640; 94664; 94667; 96361; 96365; 96375; 99152; 99153; C1769; C2625; J1120; J1170; J1450; J1642; J1650; J1756; J1940; J2250; J2270; J2405; J2543; J2920; J2930; J3010; J3370; J3475; J3480; J7030; J7042; J7050; J7644; P9016; Q9963; Q9967

== ENCOUNTER → 2017-01-14 | Outpatient (CLI) | payer MEDICARE ==
[~2017-01-14] MED LIST changes: +CLAR10CA3 PO; +CLOR3.755 PO; +ESTR0.1D3 T-DERMAL; -ESTROGEN PATCH TOP; +FENT25T T-DERMAL; +FURO20TA PO; -HYDR1SOL3 PO; +MORP1TAB24 PO; +OXYC-392 PO; +PANT40TA3 PO; -POTA10SO12 PO; +PRED10 PO; -SENN1TAB G-TUBE; +SYMB80AE INH; +ZOFR4TAB3 SL
[2017-01-14 13:17] LABS: AUTOMATED NEUTROPHIL # 13.7 TH/MM3 (1.8-7.7); BASOPHIL # 0.1 TH/MM3 (0-0.2); BASOPHIL % 0.3 % (0.0-2.0); EOSINOPHIL # 0.2 TH/MM3 (0-0.4); EOSINOPHIL % 0.9 % (0.0-4.0); HEMATOCRIT 44.1 % (35.0-46.0); HEMO FLAGS DIFF FINAL; LYMPH % 16.3 % (9.0-44.0); LYMPHOCYTE # 2.9 TH/MM3 (1.0-4.8); MEAN CELL VOLUME 88.4 FL (80.0-100.0); MEAN CORPUSCULAR HGB CONC 31.6 % (32.0-36.0); MONO % 6.1 % (0.0-8.0); NEUT % 76.4 % (16.0-70.0); PLATELET COUNT 274 TH/MM3 (150-450); RED BLOOD COUNT 4.99 MIL/MM3 (4.00-5.30); RED CELL DISTRIBUTION WIDTH 21.9 % (11.6-17.2); WHITE BLOOD COUNT 17.9 TH/MM3 (4.0-11.0)
[2017-01-14 13:32] LABS: POTASSIUM 3.3 MEQ/L (3.5-5.1)
[2017-01-14 14:10] LABS: VANCOMYCIN TROUGH 54.6 MCG/ML (5.0-10.0)
== END ==
LOC: PLAB 11:18
PROVIDERS: ATTEND Specialist
DX: K63.2 Fistula of intestine (principal); K22.2 Esophageal obstruction; C34.90 Malignant neoplasm of unspecified part of unspecified bronchus or lung
CPT/HCPCS: 80048; 80202; 85025; 87040

== ENCOUNTER → 2017-01-25 | Outpatient (CLI) | payer MEDICARE ==
[2017-01-25 16:51] LABS: HEMATOCRIT 42.5 % (35.0-46.0); MEAN CELL VOLUME 87.2 FL (80.0-100.0); MEAN CORPUSCULAR HEMOGLOBIN 27.9 PG (27.0-34.0); PLATELET COUNT 203 TH/MM3 (150-450); RED BLOOD COUNT 4.88 MIL/MM3 (4.00-5.30); RED CELL DISTRIBUTION WIDTH 19.5 % (11.6-17.2); REVIEW FLAG FINAL; WHITE BLOOD COUNT 10.4 TH/MM3 (4.0-11.0)
[2017-01-25 17:02] LABS: ALT (GPT) 21 U/L (10-53); ANION GAP 7 MEQ/L (5-15); AST (GOT) 16 U/L (15-37); BICARBONATE 31.7 MEQ/L (21.0-32.0); BLOOD UREA NITROGEN 30 MG/DL (7-18); CHLORIDE 97 MEQ/L (98-107); GLOMERULAR FILTRATION RATE 55 ML/MIN (>89); POTASSIUM 3.4 MEQ/L (3.5-5.1); SODIUM (NA) 136 MEQ/L (136-145)
[2017-01-25 17:04] LABS: ALKALINE PHOSPHATASE 187 U/L (45-117); TOTAL BILIRUBIN ADULT 0.5 MG/DL (0.2-1.0)
== END ==
LOC: PLAB 15:09
PROVIDERS: ATTEND Specialist
DX: R78.81 Bacteremia (principal)
CPT/HCPCS: 36415; 80053; 85027; 86140; 87040

== ENCOUNTER 2017-02-22 08:10 | Observation (INO) | payer MEDICARE ==
[~2017-02-22] VITALS: Ht 152.4 cm; Wt 52.0 kg
[~2017-02-22 08:10] MED LIST changes: -FENT25T T-DERMAL; -FURO20TA PO; -LISI10TA3 PO; -MORP1TAB24 PO; -PANT40TA3 PO; -PRED10 PO; -SYMB80AE INH; -ZOFR4TAB3 SL
[2017-02-22] MEDS ORDERED: SODIUM CHLORID 0.9% 500 ML IV PRN (08:45)
[2017-02-22] MEDS ORDERED: POVIDONE IODINE 5% (ANTISEPSIS KIT) 4 APPLICATIONS EACH NARE PRN (08:45)
[2017-02-22] MEDS ORDERED: LACTATED RINGER'S 1000 ML IV PRN (08:45)
[2017-02-22] MEDS ORDERED: METOPROLOL TARTRATE 25 MG TAB PO PRN (08:45)
[2017-02-22] MEDS ORDERED: CHLORHEXIDINE GLUCONATE 2 % 1 PACK (2 CLOTHS) TOPICAL PRN (08:45)
[2017-02-22] MEDS ORDERED: INSULIN HUMAN REGULAR 1,000 UNITS/10 ML VIAL SQ PRN (08:45)
[2017-02-22] MEDS ORDERED: PROPOFOL 200 MG/20 ML AMP ONE (10:34)
[2017-02-22] MEDS ORDERED: PROPOFOL 500 MG/50 ML INJ 50 ML ONE (11:30)
[2017-02-22] MEDS ORDERED: LIDOCAINE HCL 2% 100 MG/5 ML SYRINGE ONE (11:31)
[2017-02-22] MEDS ORDERED: ONDANSETRON HCL 4 MG/2 ML VIAL IV PUSH ONE (12:00)
[2017-02-22] MEDS ORDERED: PROPOFOL 200 MG/20 ML AMP IV ONE (12:00)
[2017-02-22] MEDS ORDERED: DEXAMETHASONE SOD PHOS 4 MG/ML VIAL IV ONE (12:00)
[2017-02-22] MEDS ORDERED: DO NOT ADM ANY ANTICOAGULANT DRUGS PRN (13:33)
--- NOTE | 2017-02-22 13:57 | PD.PROCEDR ---
GI Procedure PROCEDURE PERFORMED EGD with esophageal stent removal and stent placement INDICATION FOR PROCEDURE history of esophageal stricture and radiation esophagitis needs esophageal stent removal PROCEDURE: The procedure, risks and benefits were discussed with Ms. Valdovinos and informed consent was obtained. Anesthesia sedated her with Diprivan. She was placed in the left lateral decubitus position. EGD: The Pentax videoscope was introduced through the oropharynx and advanced to the second portion of the duodenum under direct visualization. Retroflexion was performed in the stomach. FINDINGS: Esophagus the esophageal stent was noted to be in place that apparently there was ingrowth that had occurred at the proximal and distal end of the esophageal stent it was a very difficult procedure trying to remove the stent and take the proximal and distal and out finally we were able to maneuver and remove the stent using rat-tooth and an overtube but there was also a superficial esophageal tear that was noted and in order to take precautionary measures a 23 Syriac 15 cm fully covered esophageal stent was deployed under direct visualization with the assistance of the endoscope and because this was a prolonged procedure a decision was made to admit the patient The stomach was unremarkable the PEG tube was in place The duodenum was also unremarkable ESTIMATED BLOOD LOSS: About 50 cc SPECIMENS REMOVED: None COMPLICATIONS: A superficial esophageal tear IMPRESSION: History of esophageal stricture status post esophageal stent removal Esophageal tear PLAN: Patient to be admitted for observation We'll plan on esophageal stent removal in 2 days Continue outpatient medications Monitor labs Sal Monzon MD Feb 22, 2017 13:57
[2017-02-22] MEDS ORDERED: D5-1/2 NS + KCL 20 MEQ INJ 1,000 ML ONE (14:14)
[2017-02-22] MEDS: D5-1/2 NS + KCL 30 MEQ INJ 1,000 ML IV SCH (14:40)
[2017-02-22 15:08] LABS: ALKALINE PHOSPHATASE 156 U/L (45-117); ALT (GPT) 15 U/L (10-53); TOTAL BILIRUBIN ADULT 0.3 MG/DL (0.2-1.0)
[2017-02-22 15:11] LABS: ANION GAP 5 MEQ/L (5-15); AST (GOT) 37 U/L (15-37); BICARBONATE 29.5 MEQ/L (21.0-32.0); BLOOD UREA NITROGEN 11 MG/DL (7-18); CHLORIDE 104 MEQ/L (98-107); GLOMERULAR FILTRATION RATE 114 ML/MIN (>89); POTASSIUM 4.2 MEQ/L (3.5-5.1); SODIUM (NA) 138 MEQ/L (136-145)
[2017-02-22] MEDS ORDERED: ONDANSETRON HCL 4 MG/2 ML VIAL ONE (15:42)
[2017-02-22] MEDS ORDERED: *morphine SULFATE 8 MG/ML PERIprocedure ONLY ONE (17:03)
[2017-02-22 20:00] VITALS: BP 137/80; PULSE 110; RESP 18; TEMP 96; O2SAT 96
[2017-02-22] MEDS: oxyCODONE/ACETAMINOPHEN 5 MG/325 MG TAB PO PRN (20:01)
[2017-02-22] MEDS: ALPRAZolam 0.25 MG TAB PO SCH (20:02)
[2017-02-22 20:38] VITALS: O2SAT 95
--- NOTE | 2017-02-22 22:28 | PD.CONS ---
HPI History of Present Illness This is a 76 year old female well-known to me from prior encounters with known history of radiation esophagitis and esophageal stricture she required esophageal stent placement and due to the fact that she was losing weight she had a PEG tube that was placed subsequently this was dislodged and she developed an infection ended up in the hospital with a prolonged hospitalization finally she was discharged home and has done well she presented today for esophageal stent removal and PEG tube removal the procedure was prolonged with a noted superficial tear of the esophagus and so the patient was admitted for observation a second stent was placed so as to allow for the esophagus to heal postprocedure the patient appears to be stable denies any pain or shortness of breath [facility] Coded Allergies: Sulfa (Sulfonamide Antibiotics) (Verified Allergy, Severe, SWELLING, 02/22) Medications Levothyroxine, clonazepam, oxycodone Family History Noncontributory Social History Negative Review of Systems ROS Review of systems Patient denies any headache dizziness blurry vision, denies any chest pain shortness of breath cough fever chills, Denies any palpitations or fatigue denies any polyuria dysuria hematuria, denies any numbness tingling or weakness, denies any skin rash pruritus or jaundice, denies any easy bruising or bleeding tendency, denies any recent change in mood GI Exam Vitals I&O Vital Signs Date Time Temp Pulse Resp B/P (MAP) Pulse Ox O2 Delivery O2 Flow Rate FiO2 02/22/17 20:38 95 Nasal Cannula 2.00 02/22/17 20:00 96.0 110 18 137/80 (99) 96 02/22/17 16:30 105 18 156/68 (97) 95 Nasal Cannula 3 02/22/17 15:30 99.0 106 18 140/66 (90) 92 Nasal Cannula 3 02/22/17 15:15 103 18 145/66 (92) 92 Nasal Cannula 3 02/22/17 15:00 101 20 152/67 (95) 92 Nasal Cannula 3 02/22/17 14:45 97 18 145/80 (101) 92 Nasal Cannula 4 02/22/17 14:30 89 18 173/80 (111) 93 Nasal Cannula 4 02/22/17 14:15 89 18 169/81 (110) 94 Nasal Cannula 4 02/22/17 14:00 88 18 176/79 (111) 94 Nasal Cannula 4 02/22/17 13:45 89 18 178/81 (113) 94 Nasal Cannula 4 02/22/17 13:33 97.2 91 18 161/90 (113) 91 Nasal Cannula 3 02/22/17 08:42 97.6 108 18 137/75 (95) 99 I/O 02/21/17 02/21/17 02/21/17 02/22/17 02/22/17 02/22/17 07:00 15:00 23:00 07:00 15:00 23:00 Intake Total 1500 ml Balance 1500 ml Other 1500 ml # Voids 2 Laboratory Test 02/22/17 14:03 Blood Urea Nitrogen 11 MG/DL Creatinine 0.52 MG/DL Random Glucose 94 MG/DL Total Protein 7.0 GM/DL Albumin 2.8 GM/DL Calcium Level 8.9 MG/DL Alkaline Phosphatase 156 U/L Aspartate Amino Transf (AST/SGOT) 37 U/L Alanine Aminotransferase (ALT/SGPT) 15 U/L Total Bilirubin 0.3 MG/DL Sodium Level 138 MEQ/L Potassium Level 4.2 MEQ/L Chloride Level 104 MEQ/L Carbon Dioxide Level 29.5 MEQ/L Anion Gap 5 MEQ/L Estimat Glomerular Filtration Rate 114 ML/MIN Physical Examination HEENT: Pupils round and reactive to light; normocephalic; atraumatic; no jaundice. Throat is clear. NECK: Neck is supple, no JVD, no lymphadenopathy. CHEST: Chest is clear to auscultation and percussion. CARDIAC: Regular rate and rhythm with no murmur gallop or rubs. ABDOMEN: Soft, nondistended, nontender; no hepatosplenomegaly; bowel sounds are present in all four quadrants. PEG tube in place EXTREMITIES: No clubbing, cyanosis, or edema. SKIN: Normal; no rash; no jaundice. COMPUTER SYSTEMS SECURITY ADMINISTRATOR: No focal deficits; alert and oriented times three. 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
[2017-02-23] VITALS (7 sets, daily range): BP systolic 128–154; BP diastolic 60–75; PULSE 109–116; RESP 16–19; TEMP 95.8–98.7; O2SAT 92–96
[2017-02-23] MEDS: D5-1/2 NS + KCL 30 MEQ INJ 1,000 ML IV SCH ×3 (01:00→15:22)
[2017-02-23] MEDS: oxyCODONE/ACETAMINOPHEN 5 MG/325 MG TAB PO PRN ×5 (03:58→12:23)
[2017-02-23] MEDS: ALPRAZolam 0.25 MG TAB PO SCH ×3 (06:00→20:45)
[2017-02-23] MEDS: LEVOTHYROXINE SODIUM 75 MCG TAB PO SCH (06:32)
--- NOTE | 2017-02-23 16:21 | HHI.GIFU ---
Subjective Remarks C/O esophageal, epigastric pain. Percocet helps some, but does not completely alleviate. Having esophageal spasms. C/O KCL in iv burning, requesting this to be taking out. (Venecia Patel) Objective Vitals I&O Vital Signs Date Time Temp Pulse Resp B/P (MAP) Pulse Ox O2 Delivery O2 Flow Rate FiO2 02/23/17 12:00 98.3 109 17 132/63 (86) 94 02/23/17 08:00 95.8 109 16 139/66 (90) 93 02/23/17 04:00 97.0 116 19 133/66 (88) 96 02/23/17 00:00 96.7 111 18 142/75 (97) 95 02/22/17 20:38 95 Nasal Cannula 2.00 02/22/17 20:00 96.0 110 18 137/80 (99) 96 02/22/17 16:30 105 18 156/68 (97) 95 Nasal Cannula 3 I/O 02/22/17 02/22/17 02/22/17 02/23/17 02/23/17 02/23/17 07:00 15:00 23:00 07:00 15:00 23:00 Intake Total 1500 ml 1240 ml Balance 1500 ml 1240 ml Intake Oral 240 ml IV Total 1000 ml Other 1500 ml # Voids 2 4 Physical Exam HEENT: Normocephalic; atraumatic; no jaundice. CHEST: Resp. even/unlabored, diminished bases CARDIAC: RRR ABDOMEN: Soft, nondistended, nontender; no hepatosplenomegaly; bowel sounds are present in all four quadrants. PEG tube site with slight redness, no drainage. EXTREMITIES: No clubbing, cyanosis, or edema. SKIN: Normal; no rash; no jaundice. ELECTRIC MOTOR FITTER: No focal deficits; alert and oriented times three. 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 S/P EGD with stent removal (02/23/17)---> Esophageal tear. S/P temporary esophageal stent placement. Clinically, no fevers. Having some esophageal spasms, esophageal/epigastric discomfort. Pain meds adjusted, has not received new dosing yet. Plan is for repeat EGD with stent removal and possible PEG tube removal in am. D/W patient and daughter and they are agreeable. PLAN: - Plan for EGD with stent removal, possible peg tube removal - Obtain consents - NPO after MN - Add Protonix 40mg IV BID - Change IVF to D5 1/2 NS at 100cc/hr - CBC, BMP in am - Pain management - Supportive care - Further recommendations to follow based on results of above - Pt seen and examined by Dr. Monzon and myself and this note is written on his behalf (Venecia Patel) Physician Comments Patient seen and examined Agree with above Continue with current supportive care Monitor labs Plan for EGD with stent removal tomorrow (Sal Monzon MD) Venecia Patel Feb 23, 2017 16:21 Sal Monzon MD Feb 23, 2017 18:29
[2017-02-23] MEDS: DEXT 5%-NACL 0.45% 1000 ML INJ 1,000 ML IV SCH (16:57)
[2017-02-23] MEDS ORDERED: BENZOCAINE 6 MG/MENTHOL 10 MG LOZENGE BUCCAL PRN (17:00)
[2017-02-24] VITALS: BP 122/61; PULSE 111; RESP 18; TEMP 98.2; O2SAT 94
[2017-02-24] MEDS ORDERED: CHLORHEXIDINE GLUCONATE 2 % 1 PACK (2 CLOTHS) TOPICAL PRN (01:45)
[2017-02-24] MEDS ORDERED: POVIDONE IODINE 5% (ANTISEPSIS KIT) 4 APPLICATIONS EACH NARE PRN (01:45)
[2017-02-24] MEDS ORDERED: LACTATED RINGER'S 1000 ML IV PRN (01:45)
[2017-02-24] MEDS: DEXT 5%-NACL 0.45% 1000 ML INJ 1,000 ML IV SCH ×3 (03:05→15:06)
[2017-02-24 04:00] VITALS: BP 141/70; PULSE 106; RESP 18; TEMP 97.4; O2SAT 92
[2017-02-24] MEDS: LEVOTHYROXINE SODIUM 75 MCG TAB PO SCH (05:44)
[2017-02-24] MEDS: ALPRAZolam 0.25 MG TAB PO SCH ×2 (05:49→14:01)
[2017-02-24 07:02] LABS: AUTOMATED NEUTROPHIL # 13.5 TH/MM3 (1.8-7.7); BASOPHIL # 0.1 TH/MM3 (0-0.2); BASOPHIL % 0.7 % (0.0-2.0); EOSINOPHIL # 0.5 TH/MM3 (0-0.4); EOSINOPHIL % 2.9 % (0.0-4.0); HEMATOCRIT 34.1 % (35.0-46.0); HEMO FLAGS DIFF FINAL; LYMPH % 16.8 % (9.0-44.0); MEAN CELL VOLUME 86.5 FL (80.0-100.0); MEAN CORPUSCULAR HGB CONC 32.4 % (32.0-36.0); MONO % 5.5 % (0.0-8.0); NEUT % 74.1 % (16.0-70.0); PLATELET COUNT 232 TH/MM3 (150-450); RED BLOOD COUNT 3.94 MIL/MM3 (4.00-5.30); RED CELL DISTRIBUTION WIDTH 17.1 % (11.6-17.2); WHITE BLOOD COUNT 18.2 TH/MM3 (4.0-11.0)
[2017-02-24 07:19] LABS: BICARBONATE 27.7 MEQ/L (21.0-32.0); POTASSIUM 4.4 MEQ/L (3.5-5.1)
[2017-02-24 07:39] VITALS: BP 136/69; PULSE 82; RESP 12; TEMP 96.1; O2SAT 97
--- NOTE | 2017-02-24 09:51 | PD.PROCEDR ---
GI Procedure PROCEDURE PERFORMED EGD with esophageal stent removal and PEG removal INDICATION FOR PROCEDURE History of esophageal stricture with radiation esophagitis with complaints of dysphagia PROCEDURE: The procedure, risks and benefits were discussed with Ms. Valdovinos and informed consent was obtained. Anesthesia sedated her with Diprivan. She was placed in the left lateral decubitus position. EGD: The Pentax videoscope was introduced through the oropharynx and advanced to the second portion of the duodenum under direct visualization. Retroflexion was performed in the stomach. FINDINGS: The esophagus the esophageal stent was identified this was removed with ease by pulling on the string the esophagus did have quite a bit of erythema with some friability consistent with esophagitis no tears were identified The stomach this appeared to be unremarkable and within normal limits the PEG tube was removed from within the stomach by surrounding the bumper with a snare and this was pulled out through the mouth The duodenum was unremarkable ESTIMATED BLOOD LOSS: None SPECIMENS REMOVED: None COMPLICATIONS: None IMPRESSION: Esophagitis PLAN: Recommend PPI Recommend nothing by mouth for 4 hours then advance diet as tolerated Follow-up with GI in 2-3 weeks Sal Monzon MD Feb 24, 2017 09:51
[2017-02-24] MEDS ORDERED: PANTOPRAZOLE SOD 40 MG DELAYED RELEASE TAB PO SCH (10:00)
[2017-02-24] MEDS ORDERED: PROPOFOL 200 MG/20 ML AMP ONE (10:55)
[2017-02-24] MEDS ORDERED: LIDOCAINE HCL 2% 100 MG/5 ML SYRINGE ONE (11:02)
[2017-02-24 11:45] VITALS: BP 131/66; PULSE 110; RESP 26; TEMP 96.8; O2SAT 92
[2017-02-24 12:38] VITALS: O2SAT 92
[2017-02-24] MEDS ORDERED: PROPOFOL 200 MG/20 ML AMP IV ONE (14:54)
[2017-02-24] MEDS ORDERED: LIDOCAINE HCL 1% PF 5 ML AMPULE OTHER ONE (14:54)
[2017-02-24 16:00] VITALS: BP 135/63; PULSE 103; RESP 19; TEMP 98.7; O2SAT 92
--- NOTE | 2017-02-24 17:47 | HHI.GIFU ---
Subjective Remarks Patient comfortable in bed tolerating intake no leak from her PEG site denies any pain she does have a little soreness in her throat Objective Vitals I&O Vital Signs Date Time Temp Pulse Resp B/P (MAP) Pulse Ox O2 Delivery O2 Flow Rate FiO2 02/24/17 16:00 98.7 103 19 135/63 (87) 92 02/24/17 12:38 92 Nasal Cannula 2.00 02/24/17 11:45 96.8 110 26 131/66 (87) 92 02/24/17 10:01 96 18 128/58 (81) 96 02/24/17 09:55 97 18 127/54 (78) 91 02/24/17 09:46 98.6 97 18 123/54 (77) 92 02/24/17 09:12 (91) 02/24/17 07:39 96.1 82 12 136/69 (91) 97 02/24/17 05:46 20 02/24/17 04:00 97.4 106 18 141/70 (93) 92 02/24/17 00:00 98.2 111 18 122/61 (81) 94 02/23/17 20:00 98.5 113 18 128/60 (82) 92 02/23/17 17:53 93 Nasal Cannula 2.00 I/O 02/23/17 02/23/17 02/23/17 02/24/17 02/24/17 02/24/17 07:00 15:00 23:00 07:00 15:00 23:00 Intake Total 1240 ml 597.8 ml 0 ml 250 ml 937 ml Balance 1240 ml 597.8 ml 0 ml 250 ml 937 ml Intake Oral 240 ml 380 ml 0 ml IV Total 1000 ml 217.8 ml 937 ml Other 250 ml # Voids 4 7 2 3 # Bowel Movements 0 Laboratory Laboratory Tests Test 02/24/17 05:59 White Blood Count 18.2 Red Blood Count 3.94 Hemoglobin 11.0 Hematocrit 34.1 Mean Corpuscular Volume 86.5 Mean Corpuscular Hemoglobin 28.0 Mean Corpuscular Hemoglobin Concent 32.4 Red Cell Distribution Width 17.1 Platelet Count 232 Mean Platelet Volume 8.9 Neutrophils (%) (Auto) 74.1 Lymphocytes (%) (Auto) 16.8 Monocytes (%) (Auto) 5.5 Eosinophils (%) (Auto) 2.9 Basophils (%) (Auto) 0.7 Neutrophils # (Auto) 13.5 Lymphocytes # (Auto) 3.0 Monocytes # (Auto) 1.0 Eosinophils # (Auto) 0.5 Basophils # (Auto) 0.1 CBC Comment DIFF FINAL Differential Comment Blood Urea Nitrogen 16 Creatinine 0.54 Random Glucose 108 Calcium Level 8.3 Sodium Level 139 Potassium Level 4.4 Chloride Level 105 Carbon Dioxide Level 27.7 Anion Gap 6 Estimat Glomerular Filtration Rate 109 Physical Exam HEENT: Normocephalic; atraumatic; no jaundice. CHEST: Resp. even/unlabored, diminished bases CARDIAC: RRR ABDOMEN: Soft, nondistended, nontender; no hepatosplenomegaly; bowel sounds are present in all four quadrants. PEG site seems to have closed EXTREMITIES: No clubbing, cyanosis, or edema. SKIN: Normal; no rash; no jaundice. AIR CARRIER INSPECTOR: No focal deficits; alert and oriented times three. 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 S/P EGD with stent removal (02/23/17)---> Esophageal tear. S/P temporary esophageal stent placement. Clinically, no fevers. Having some esophageal spasms, esophageal/epigastric discomfort. Pain meds adjusted, has not received new dosing yet. Plan is for repeat EGD with stent removal and possible PEG tube removal in am. D/W patient and daughter and they are agreeable. Esophagitis on endoscopy PLAN: -Patient will need to be on Protonix twice a day -Follow-up in clinic in 3-4 weeks -Okay for discharge Sal Monzon MD Feb 24, 2017 17:47
== END 2017-02-24 19:53 | disposition home or self-care (01) ==
LOC: HSDC 08:10 → HSDI 14:00 → N07A 18:16
PROVIDERS: ADMIT Internal Medicine Gastroenterology; ATTEND Internal Medicine Gastroenterology
DX: K20.8 Other esophagitis (principal); K22.4 Dyskinesia of esophagus; R13.10 Dysphagia, unspecified; S11.21XA Laceration without foreign body of pharynx and cervical esophagus, initial encounter; X58.XXXA Exposure to other specified factors, initial encounter; Y84.2 Radiological procedure and radiotherapy as the cause of abnormal reaction of the patient, or of later complication, without mention of misadventure at the time of the procedure
CPT/HCPCS: 00740; 43247; 43266; 80048; 80053; 85025; 96360; 96361; C1726; C1769; C2625; G0378; J1100; J2270; J2405; J3010; J3480; J7120

== ENCOUNTER → 2017-03-23 | Outpatient (CLI) | payer MEDICARE ==
[2017-03-23 16:28] LABS: AUTOMATED NEUTROPHIL # 5.2 TH/MM3 (1.8-7.7); BASOPHIL # 0.1 TH/MM3 (0-0.2); BASOPHIL % 0.9 % (0.0-2.0); EOSINOPHIL # 0.3 TH/MM3 (0-0.4); EOSINOPHIL % 3.9 % (0.0-4.0); HEMATOCRIT 40.1 % (35.0-46.0); HEMO FLAGS DIFF FINAL; LYMPH % 21.7 % (9.0-44.0); LYMPHOCYTE # 1.7 TH/MM3 (1.0-4.8); MEAN CELL VOLUME 89.3 FL (80.0-100.0); MEAN CORPUSCULAR HEMOGLOBIN 29.3 PG (27.0-34.0); MEAN CORPUSCULAR HGB CONC 32.9 % (32.0-36.0); NEUT % 66.5 % (16.0-70.0); PLATELET COUNT 206 TH/MM3 (150-450); RED BLOOD COUNT 4.49 MIL/MM3 (4.00-5.30); RED CELL DISTRIBUTION WIDTH 15.8 % (11.6-17.2); WHITE BLOOD COUNT 7.9 TH/MM3 (4.0-11.0)
[2017-03-23 16:48] LABS: ALT (GPT) 26 U/L (10-53); ANION GAP 7 MEQ/L (5-15); AST (GOT) 33 U/L (15-37); BICARBONATE 28.6 MEQ/L (21.0-32.0); BLOOD UREA NITROGEN 16 MG/DL (7-18); CHLORIDE 105 MEQ/L (98-107); GLOMERULAR FILTRATION RATE 101 ML/MIN (>89); GLUCOSE,FASTING 89 MG/DL (74-99); POTASSIUM 4.2 MEQ/L (3.5-5.1); SODIUM (NA) 141 MEQ/L (136-145)
[2017-03-23 16:57] LABS: ALKALINE PHOSPHATASE 356 U/L (45-117); HDL CHOLESTEROL 41.5 MG/DL (40.0-60.0); LDL CHOLESTEROL 117 MG/DL (0-99); TOTAL BILIRUBIN ADULT 0.5 MG/DL (0.2-1.0)
== END ==
LOC: PLAB 14:26
PROVIDERS: ATTEND Family Medicine
DX: C34.92 Malignant neoplasm of unspecified part of left bronchus or lung (principal); E78.4 Other hyperlipidemia; E03.9 Hypothyroidism, unspecified; I10 Essential (primary) hypertension; K22.2 Esophageal obstruction
CPT/HCPCS: 36415; 80053; 80061; 84443; 85025

== ENCOUNTER → 2017-04-19 | Outpatient (CLI) | payer MEDICARE ==
[~2017-04-19] VITALS: Ht 152.4 cm; Wt 47.3 kg
[~2017-04-19] MED LIST changes: +CHLORHEXIDINE GLUCONATE 2 % 1 PACK (2 CLOTHS) TOPICAL PRN; +LACTATED RINGER'S 1000 ML IV PRN; +METOPROLOL TARTRATE 25 MG TAB PO PRN; +POVIDONE IODINE 5% (ANTISEPSIS KIT) 4 APPLICATIONS EACH NARE PRN; +SODIUM CHLORID 0.9% 500 ML IV PRN
--- NOTE | 2017-04-19 11:42 | PD.PROCEDR ---
GI Procedure PROCEDURE PERFORMED EGD with dilation and biopsy INDICATION FOR PROCEDURE Dysphagia, esophageal stricture PROCEDURE: The procedure, risks and benefits were discussed with Ms. Valdovinos and informed consent was obtained. Anesthesia sedated her with Diprivan. She was placed in the left lateral decubitus position. EGD: The Pentax videoscope was introduced through the oropharynx and advanced to the second portion of the duodenum under direct visualization. Retroflexion was performed in the stomach. FINDINGS: The esophagus there was a significant mid esophageal stricture with inflammation and ulceration consistent with her history of radiation esophagitis and esophageal stricture this was initially dilated with size 8 mm savory dilator over guidewire and we gradually dilated to 14 mm postdilatation view was satisfactory with only some minor rents biopsies were also taken the rest of the esophagus was unremarkable The stomach was unremarkable The duodenum was unremarkable ESTIMATED BLOOD LOSS: Minimal SPECIMENS REMOVED: Esophageal biopsy COMPLICATIONS: None IMPRESSION: Severe mid esophageal stricture with inflammation and ulceration PLAN: Await biopsies Add sucralfate EGD with dilation with me in one month Sal Monzon MD Apr 19, 2017 11:42
[2017-04-19 12:20] VITALS: BP 140/78; PULSE 95; RESP 22; TEMP 97.1; O2SAT 96
--- NOTE | 2017-04-19 18:17 | EKG ---
Date Performed: 04/19/2017 Time Performed: 09:02:54 PTAGE: 76 years EKG: Sinus rhythm LEFT ATRIAL ENLARGEMENT ANTEROSEPTAL MYOCARDIAL INFARCTION , OF INDETERMINATE AGE. Since previous tr acing, no significant change noted ABNORMAL ECG PREVIOUS TRACING : 12/30/2016 12.02 DOCTOR: Cy Ruiz Interpretating Date/Time 04/19/2017 18:16:06
== END ==
LOC: HSDC 08:11
PROVIDERS: ATTEND Internal Medicine Gastroenterology
DX: K22.2 Esophageal obstruction (principal); R13.10 Dysphagia, unspecified; K20.9 Esophagitis, unspecified; R94.31 Abnormal electrocardiogram [ECG] [EKG]
CPT/HCPCS: 00740; 43239; 43248; 88305; 88312; 93005; C1769; J7120

== ENCOUNTER 2017-05-24 10:01 | Inpatient (IN) | payer MEDICARE ==
[~2017-05-24] VITALS: Ht 152.4 cm; Wt 54.9 kg
[2017-05-24] VITALS (8 sets, daily range): BP systolic 94–124; BP diastolic 49–65; PULSE 101–112; RESP 16–32; TEMP 98.3–98.7; O2SAT 95–97
[~2017-05-24 10:01] MED LIST changes: -CHLORHEXIDINE GLUCONATE 2 % 1 PACK (2 CLOTHS) TOPICAL PRN; -LACTATED RINGER'S 1000 ML IV PRN; -METOPROLOL TARTRATE 25 MG TAB PO PRN; -POVIDONE IODINE 5% (ANTISEPSIS KIT) 4 APPLICATIONS EACH NARE PRN; -SODIUM CHLORID 0.9% 500 ML IV PRN
[2017-05-24] MEDS ORDERED: IOHEXOL 350 MG/ML 10 ML VIAL (for RAD DIAG) IVCONTRAST ONE (10:02)
[2017-05-24] MEDS ORDERED: DEXI30CA2 (12:20)
[2017-05-24] MEDS ORDERED: ONDANSETRON HCL 4 MG/2 ML VIAL IVP ONE (12:45)
--- NOTE | 2017-05-24 12:49 | PD ---
HPI Chief Complaint: GI Complaint Time Seen by Provider: 12:15 Travel History International Travel<30 days: No Contact w/Intl Traveler<30days: No Traveled to known affect area: No History of Present Illness HPI 68-year-old female with a history of lung cancer status post chemo & radiation therapy presents to the emergency department with multiple episodes of bright red bloody vomitus in "fatigue". Patient denies dizziness, fever, chills, diarrhea. Says she does feel "queasy" but is not actively vomiting. Patient denies abdominal pain. Patient states that she was at May 18 at [facility] for the same issue. Patient states that she has had trouble swallowing and developed bloody vomitus which resulted in urgent EGD during that visit. At that time, patient required admission with transfusions. Dr. Boothe is her gastrointestinal physician, who also recommended she come to the emergency department today. Patient denies chronic cardiac or kidney disease. States that he has an extensive history of tobacco use but quit 4 years ago. PFSH Past Medical History Autoimmune Disease: No Anxiety: Yes Depression: No Cancer: Yes (lung cancer ) High Cholesterol: Yes Chemotherapy: Yes Diabetes: No Diminished Hearing: No Endocrine: Yes Gastrointestinal Disorders: Yes (esophageal stricture) Genitourinary: No Hepatitis: No Hiatal Hernia: No Hypertension: Yes Immune Disorder: No Implanted Vascular Access Dvce: Yes Musculoskeletal: No Neurologic: No Psychiatric: Yes (anxiety) Reproductive: No Respiratory: Yes (lung ca DENISE) Radiation Therapy: Yes Thyroid Disease: Yes (hypothyroid) Triglycerides - High: Yes Tetanus Vaccination: Unknown Influenza Vaccination: Yes ?: Not Menopausal: Yes Past Surgical History Abdominal Surgery: Yes (peg placement and removal, lymph nodes removed) AICD: No Body Medical Devices: peg tube and stent abdomen Cardiac Surgery: Yes (chest port placed and removed) Ear Surgery: No Endocrine Surgery: No Eye Surgery: No Genitourinary Surgery: No Gynecologic Surgery: Yes (hysterectomy) Hysterectomy: Yes Joint Replacement: No Oral Surgery: Yes (tonsillectomy, stretch esophagous 7x) Pacemaker: No Thoracic Surgery: No Tonsillectomy: Yes Other Surgery: Yes (GTUBE WITH REVERSAL ) Social History Alcohol Use: Yes (OCC) Tobacco Use: No (E-CIG) Substance Use: No Allergies-Medications (Allergen,Severity, Reaction): Coded Allergies: Sulfa (Sulfonamide Antibiotics) (Verified Allergy, Severe, SWELLING, ) Reported Meds & Prescriptions Reported Meds & Active Scripts Active Oxycodone (Oxycodone HCl) 5 Mg Tab 5 Mg PO Q4H PRN do not use this medicine if you will drive a car or use a machine, only use it when resting at home. Reported Dexilant (Dexlansoprazole) 30 Mg Estradiol Patch 168 HR (Estradiol) 0.1 Mg/24 Hr Patch 1 Patch T-DERMAL Q7D Remove old patch and discard when new patch being placed. Clorazepate (Clorazepate Dipotassium) 3.75 Mg Tab 3.75 Mg PO TID Levothyroxine (Levothyroxine Sodium) 75 Mcg Tab 75 Mcg PO DAILY Amitriptyline (Amitriptyline HCl) 25 Mg Tab 25 Mg PO HS Review of Systems Except as stated in HPI: all other systems reviewed are Neg Physical Exam Narrative GENERAL: Well-nourished well-developed, fatigued appearing SKIN: Focused skin assessment warm/dry. HEAD: Atraumatic. Normocephalic. EYES: Pupils equal and round. No scleral icterus. No injection or drainage. ENT: No nasal bleeding or discharge. Mucous membranes pink and moist. NECK: Trachea midline. No JVD. CARDIOVASCULAR: Regular rate and rhythm. No murmur appreciated. RESPIRATORY: No accessory muscle use. Clear to auscultation. Breath sounds equal bilaterally. GASTROINTESTINAL: Abdomen soft, non-tender, nondistended. Hepatic and splenic margins not palpable. MUSCULOSKELETAL: No obvious deformities. No clubbing. No cyanosis. No edema. NEUROLOGICAL: Awake and alert. No obvious cranial nerve deficits. Motor grossly within normal limits. Normal speech. PSYCHIATRIC: Appropriate mood and affect; insight and judgment normal. Data Data Last Documented VS Vital Signs Date Time Temp Pulse Resp B/P (MAP) Pulse Ox O2 Delivery O2 Flow Rate FiO2 05/24/17 17:48 104 18 118/57 (77) 97 Nasal Cannula 2.00 05/24/17 10:04 98.7 Orders Orders Complete Blood Count With Diff (05/24/17 12:44) Comprehensive Metabolic Panel (05/24/17 12:44) Lipase (05/24/17 12:44) Lactic Acid (05/24/17 12:44) Prothrombin Time / Inr (Pt) (05/24/17 12:44) Act Partial Throm Time (Ptt) (05/24/17 12:44) Urinalysis - C+S If Indicated (05/24/17 12:44) Iv Access Insert/Monitor (05/24/17 12:44) NPO (05/24/17 12:44) Ondansetron Inj (Zofran Inj) (05/24/17 12:45) Electrocardiogram (05/24/17 12:44) Type And Screen (05/24/17 12:45) Orthostatic Vital Signs (05/24/17 13:13) Urine Culture (05/24/17 13:20) Chest, Single Ap (05/24/17 ) Cta Thor Abd Aorta W Iv C W3d (05/24/17 ) Iohexol 350 Inj (Omnipaque 350 Inj) (05/24/17 10:02) Admit Order (Ed Use Only) (05/24/17 18:24) Labs Laboratory Tests Test 05/24/17 13:20 05/24/17 13:25 Urine Color YELLOW Urine Turbidity HAZY Urine pH 5.5 Urine Specific [place] 1.017 Urine Protein 30 mg/dL Urine Glucose (UA) NEG mg/dL Urine Ketones NEG mg/dL Urine Occult Blood NEG Urine Nitrite NEG Urine Bilirubin NEG Urine Urobilinogen 2.0 MG/DL Urine Leukocyte Esterase SMALL Urine RBC 1 /hpf Urine WBC 9 /hpf Urine WBC Clumps RARE Urine Squamous Epithelial Cells 10 /hpf Urine Transitional Epithelial Cells <1 /hpf Urine Bacteria MOD /hpf Urine Hyaline Casts 8 /lpf Urine Mucus MANY /lpf Microscopic Urinalysis Comment CULTURE INDICATED White Blood Count 8.6 TH/MM3 Red Blood Count 3.47 MIL/MM3 Hemoglobin 10.3 GM/DL Hematocrit 31.7 % Mean Corpuscular Volume 91.3 FL Mean Corpuscular Hemoglobin 29.8 PG Mean Corpuscular Hemoglobin Concent 32.7 % Red Cell Distribution Width 14.9 % Platelet Count 206 TH/MM3 Mean Platelet Volume 9.4 FL Neutrophils (%) (Auto) 68.0 % Lymphocytes (%) (Auto) 21.3 % Monocytes (%) (Auto) 8.9 % Eosinophils (%) (Auto) 1.3 % Basophils (%) (Auto) 0.5 % Neutrophils # (Auto) 5.8 TH/MM3 Lymphocytes # (Auto) 1.8 TH/MM3 Monocytes # (Auto) 0.8 TH/MM3 Eosinophils # (Auto) 0.1 TH/MM3 Basophils # (Auto) 0.0 TH/MM3 CBC Comment DIFF FINAL Differential Comment Prothrombin Time 10.9 SEC Prothromb Time International Ratio 1.1 RATIO Activated Partial Thromboplast Time 25.3 SEC Blood Urea Nitrogen 13 MG/DL Creatinine 0.60 MG/DL Random Glucose 91 MG/DL Total Protein 6.5 GM/DL Albumin 2.7 GM/DL Calcium Level 8.4 MG/DL Alkaline Phosphatase 183 U/L Aspartate Amino Transf (AST/SGOT) 11 U/L Alanine Aminotransferase (ALT/SGPT) 10 U/L Total Bilirubin 0.4 MG/DL Sodium Level 141 MEQ/L Potassium Level 3.6 MEQ/L Chloride Level 107 MEQ/L Carbon Dioxide Level 27.1 MEQ/L Anion Gap 7 MEQ/L Estimat Glomerular Filtration Rate 97 ML/MIN Lactic Acid Level 2.1 mmol/L Lipase 110 U/L MDM Medical Decision Making Medical Screen Exam Complete: Yes Emergency Medical Condition: Yes Differential Diagnosis Hematochezia, nausea, vomiting, esophageal strictures Narrative Course 68-year-old female with a history of lung cancer status post chemo radiation therapy presents to the emergency department with multiple episodes of bright red bloody vomitus in "fatigue". Patient denies dizziness, fever, chills, diarrhea. Says she does feel "queasy" but is not actively vomiting. Patient denies abdominal pain. Patient states that she was at May 18 at [facility] for the same issue. Patient states that she has had trouble swallowing and developed bloody vomitus which resulted in urgent EGD. At that time, patient required admission with transfusions. Dr. Boothe is her gastrointestinal physician, who also recommended she come to the emergency department today. Patient denies chronic cardiac or kidney disease. States that he has an extensive history of tobacco use but quit 4 years ago. Her daughter assisted with a history today. After further discussion, patient states that she had lung cancer which required chemo in radiation therapy that was initiated May 2016. At the conclusion of her therapy, patient states that she has developed esophageal strictures which required the dilations as previously discussed. Apparently, patient has had multiple EGDs requiring dilatation at the last procedure resulted in 3 units blood loss. Vital signs-mildly tachycardic in the low 100s, blood pressure stable Physical exam findings consistent with a 68-year-old female well-nourished well- developed in mild distress. No evidence of bloody vomitus. I spoke Dr. Boothe as he is familiar with this patient. He recommends follow- up labs, ensure vital signs are stable, an assess for outpatient or inpatient evaluation. Please Dr. Peña's note regarding conversations with Dr. Boothe as well. After furthe evaluation and discussion, Dr. Boothe recommended aorta CTA to rule out fistula. Patient was administered Zofran in the emergency department today for nausea. CBC & BMP Diagram 05/24/17 13:25 Total Protein 6.5, Albumin 2.7 L, Calcium Level 8.4 L, Alkaline Phosphatase 183 H, Aspartate Amino Transf (AST/SGOT) 11 L, Alanine Aminotransferase (ALT/SGPT) 10, Total Bilirubin 0.4 Last Impressions Chest X-Ray 05/24/17 0000 Signed Impressions: Service Date/Time: Wednesday, May 24, 2017 14:56 - CONCLUSION: Interval removal of chest port and esophageal stent. No definite acute findings. Og Joya MD CTA results read back to Dr. Peña, my attending. Please see her note as well. Dr Peña & I had an extensive discussion with the patient and her daughter. Pt was reluctant to stay but decided to stay for further evaluation. Pt admitted with Surg and GI consult. HemaPrompt Point of Care Internal Pos. & Neg. Controls: Passed Fecal Specimen Occult Blood: Negative Physician Communication Physician Communication I spoke with Dr. Boothe who gave me a little more history regarding this patient. He is not familiar with this patient states that she does have significant anxiety. During the previous hospital stay at [facility], he confirmed that she lost a significant amount of blood secondary to the dilation. He recommends I clarify the source of her vomiting and obtain labs for making a determination. Diagnosis Primary Impression: Hematemesis Qualified Codes: K92.0 - Hematemesis Admitting Information Admitting Physician Requests: Admit Condition: Stable Tawanna Phillips May 24, 2017 12:49
[2017-05-24 14:07] LABS: AUTOMATED NEUTROPHIL # 5.8 TH/MM3 (1.8-7.7); BASOPHIL % 0.5 % (0.0-2.0); EOSINOPHIL # 0.1 TH/MM3 (0-0.4); EOSINOPHIL % 1.3 % (0.0-4.0); HEMATOCRIT 31.7 % (35.0-46.0); HEMOGLOBIN 10.3 GM/DL (11.6-15.3); LYMPH % 21.3 % (9.0-44.0); LYMPHOCYTE # 1.8 TH/MM3 (1.0-4.8); MEAN CELL VOLUME 91.3 FL (80.0-100.0); MEAN CORPUSCULAR HEMOGLOBIN 29.8 PG (27.0-34.0); MEAN CORPUSCULAR HGB CONC 32.7 % (32.0-36.0); MEAN PLATELET VOLUME 9.4 FL (7.0-11.0); MONO % 8.9 % (0.0-8.0); MONOCYTE # 0.8 TH/MM3 (0-0.9); PLATELET COUNT 206 TH/MM3 (150-450); RED BLOOD COUNT 3.47 MIL/MM3 (4.00-5.30); RED CELL DISTRIBUTION WIDTH 14.9 % (11.6-17.2); WHITE BLOOD COUNT 8.6 TH/MM3 (4.0-11.0)
[2017-05-24 14:14] LABS: INTERNATIONAL NORMALIZED RATIO 1.1 RATIO; PROTHROMBIN TIME - PATIENT 10.9 SEC (9.8-11.6)
[2017-05-24 14:22] LABS: BACTERIA, URINE MOD /hpf; BILIRUBIN, URINE NEG (NEG); BLOOD, URINE NEG (NEG); GLUCOSE,URINE NEG (NEG); HYALINE CAST, URINE 8 /lpf (RARE); KETONE, URINE NEG (NEG); MUCUS URINE MANY /lpf (OCC); NITRITE,URINE NEG (NEG); PH, URINE 5.5 (5.0-8.5); SQUAMOUS EPITHELIAL CELL URINE 10 /hpf (0-5); TRANSITIONAL EPI CELLS, URINE <1 /hpf; URINE COLOR YELLOW (YELLW/STRAW); URINE LEUKOCYTE ESTERASE SMALL (NEG); WHITE BLOOD CELL CLUMPS RARE
[2017-05-24 14:27] LABS: ALBUMIN 2.7 GM/DL (3.4-5.0); AST (GOT) 11 U/L (15-37); BICARBONATE 27.1 MEQ/L (21.0-32.0); BLOOD UREA NITROGEN 13 MG/DL (7-18); CALCIUM 8.4 MG/DL (8.5-10.1); CHLORIDE 107 MEQ/L (98-107); GLOMERULAR FILTRATION RATE 97 ML/MIN (>89); GLUCOSE,RANDOM 91 MG/DL (74-106); LIPASE 110 U/L (73-393); SODIUM (NA) 141 MEQ/L (136-145)
[2017-05-24 14:28] LABS: ALT (GPT) 10 U/L (10-53)
[2017-05-24 14:31] LABS: ALKALINE PHOSPHATASE 183 U/L (45-117); TOTAL BILIRUBIN ADULT 0.4 MG/DL (0.2-1.0); TOTAL PROTEIN 6.5 GM/DL (6.4-8.2)
--- NOTE | 2017-05-24 15:06 | RADRPT ---
EXAM DATE/TIME: 05/24/2017 14:56 [facility] COMPARISON: CHEST SINGLE AP, January 04, 2017, 5:46. INDICATIONS : Blood in esophagus. Chest pain. Recent esophageal dilitation. MEDICAL HISTORY : Carcinoma, lung. Hypertension Cardiovascular disease. Radiation/Chemo therapy. SURGICAL HISTORY : Hysterectomy. Esophageal stent. Infusaport. G-tube (removed). ENCOUNTER: Initial ACUITY: 1 day PAIN SCORE: 2/10 LOCATION: upper chest FINDINGS: There has been interval removal of a right chest port and an esophageal stent. Lungs are stable and s atisfactorily aerated. Mild apical pleural thickening is present, left worse than right. Cardiac cont ours are grossly stable. CONCLUSION: Interval removal of chest port and esophageal stent. No definite acute findings. Og Joya MD on May 24, 2017 at 15:01 Board Certified Radiologist. This report was verified electronically.
--- NOTE | 2017-05-24 16:44 | RADRPT ---
EXAM DATE/TIME: 05/24/2017 15:38 [facility] COMPARISON: CT PULMONARY ANGIOGRAM, December 30, 2016, 1:02. INDICATIONS : Aeurysm,bloody vomitus,fatigue IV CONTRAST: 99 cc Omnipaque 350 (iohexol) IV RADIATION DOSE: 9.94 CTDIvol (mGy) MEDICAL HISTORY : Hypertension. Carcinoma, lung. SURGICAL HISTORY : Hysterectomy. Tonsillectomy. ENCOUNTER: Initial ACUITY: 1 day PAIN SCALE: 2/10 LOCATION: Abdomen TECHNIQUE: Volumetric scanning was performed using a multi-row detector CT scanner. The data was post processed with a variety of visualization algorithms including full volume maximum intensity projection, multi -planar sliding thin slab reformation, curved planar reformation, and surface rendering techniques. Using automated exposure control and adjustment of the mA and/or kV according to patient size, radiat ion dose was kept as low as reasonably achievable to obtain optimal diagnostic quality images. DICOM format image data is available electronically for review and comparison. FINDINGS: CTA thoracic aorta: The aortic root is normal in size at 2.8 cm. The tubular portion of the ascending aorta is normal in caliber at 3 cm. The proximal arch is at the upper limits of normal in size at 2.8 cm. The origins of the great vessels are widely patent. The examination demonstrates a focal outpouching from the dista l most portion of the arch at the origin of the descending thoracic aorta. This appears to communicat e with the posterior aspect of a thickened, abnormal appearing esophagus. The patient has a previous history of an esophageal stent in this area. This would be concerning for a small aorto esophageal fi stula. The descending thoracic aorta is normal in caliber at 1.8 cm. Abdominal aorta: The celiac and SMA origins are widely patent. There is single renal arteries bilaterally. The renal a rteries are widely patent. The infrarenal aorta is small in caliber but patent throughout its course. Pelvis: The common iliac, internal iliac and external iliac circulation is widely patent throughout its cours e. CT source data: There are advanced COPD changes within the pulmonary parenchyma. There is apical pleural thickening o n the left. There is interstitial fibrotic change throughout both lungs. The overall appearance of th e esophagus is abnormal with diffuse esophageal thickening throughout the proximal esophagus. There i s no pericardial or pleural effusion. The visualized portions of upper abdomen demonstrate nodular enlargement of the left adrenal gland me asuring 1.4 x 1.1 cm likely representing adrenal adenoma. This is stable compared to previous dated . There are simple cysts within the kidneys bilaterally. There is no free fluid within the pelv is. No iliac or inguinal adenopathy is seen. CONCLUSION: 1. The examination demonstrates a small outpouching of the proximal portion of the descending thoraci c aorta. This extends up to and partially projects into a thickened, grossly abnormal appearing segme nt of the esophagus. 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 This does not appear act ively bleeding at this time. 2. Results were called to Dr. yarbrough in the ED. Clifford Machado MD on May 24, 2017 at 16:21 Board Certified Radiologist. This report was verified electronically.
--- NOTE | 2017-05-24 19:44 | PD ---
HPI Chief Complaint: GI Complaint Time Seen by Provider: 12:15 Travel History International Travel<30 days: No Contact w/Intl Traveler<30days: No Traveled to known affect area: No History of Present Illness HPI This is a 76-year-old female who presents to the emergency department with a history of lung cancer status post radiation as well as multiple recurrent esophageal strictures requiring dilations and stenting in the past who presents to the emergency department with hemoptysis. Patient reports that this morning she vomited some small teaspoon amounts of bright red blood and had some cough with some pink tinge mucus production, intermittent, mild, with no associated lightheadedness or dizziness. The patient was just hospitalized at [facility] where she had an EGD performed for food bolus and evidently the patient had a large amount of bleeding and put out 3 units of blood and required blood transfusion and intubation following the procedure. She was seen there by Dr. Manley who recommended that she come in today to be evaluated PFSH Past Medical History Autoimmune Disease: No Anxiety: Yes Depression: No Cancer: Yes (lung cancer ) High Cholesterol: Yes Chemotherapy: Yes Diabetes: No Diminished Hearing: No Endocrine: Yes Gastrointestinal Disorders: Yes (esophageal stricture) Genitourinary: No Hepatitis: No Hiatal Hernia: No Hypertension: Yes Immune Disorder: No Implanted Vascular Access Dvce: Yes Musculoskeletal: No Neurologic: No Psychiatric: Yes (anxiety) Reproductive: No Respiratory: Yes (lung ca DENISE) Radiation Therapy: Yes Thyroid Disease: Yes (hypothyroid) Triglycerides - High: Yes Tetanus Vaccination: Unknown Influenza Vaccination: Yes ?: Not Menopausal: Yes Past Surgical History Abdominal Surgery: Yes (peg placement and removal, lymph nodes removed) AICD: No Body Medical Devices: peg tube and stent abdomen Cardiac Surgery: Yes (chest port placed and removed) Ear Surgery: No Endocrine Surgery: No Eye Surgery: No Genitourinary Surgery: No Gynecologic Surgery: Yes (hysterectomy) Hysterectomy: Yes Joint Replacement: No Oral Surgery: Yes (tonsillectomy, stretch esophagous 7x) Pacemaker: No Thoracic Surgery: No Tonsillectomy: Yes Other Surgery: Yes (GTUBE WITH REVERSAL ) Social History Alcohol Use: Yes (OCC) Tobacco Use: No (E-CIG) Substance Use: No Allergies-Medications (Allergen,Severity, Reaction): Coded Allergies: Sulfa (Sulfonamide Antibiotics) (Verified Allergy, Severe, SWELLING, ) Reported Meds & Prescriptions Reported Meds & Active Scripts Active Oxycodone (Oxycodone HCl) 5 Mg Tab 5 Mg PO Q4H PRN do not use this medicine if you will drive a car or use a machine, only use it when resting at home. Reported Dexilant (Dexlansoprazole) 30 Mg Cap. Claritin (Loratadine) 10 Mg Cap 10 Mg PO DAILY PRN Estradiol Patch 168 HR (Estradiol) 0.1 Mg/24 Hr Patch 1 Patch T-DERMAL Q7D Remove old patch and discard when new patch being placed. Clorazepate (Clorazepate Dipotassium) 3.75 Mg Tab 3.75 Mg PO TID Levothyroxine (Levothyroxine Sodium) 75 Mcg Tab 75 Mcg PO DAILY Amitriptyline (Amitriptyline HCl) 25 Mg Tab 25 Mg PO HS Review of Systems Except as stated in HPI: all other systems reviewed are Neg Physical Exam Narrative GENERAL:Well appearing, no acute distress SKIN: Focused skin assessment warm and dry. HEAD: Atraumatic. Normocephalic. EYES: Pupils equal and round. No injection or drainage. ENT: Moist mucous membranes NECK: Trachea midline. CARDIOVASCULAR: Regular rate and rhythm. No murmur appreciated. RESPIRATORY: Clear to auscultation. Breath sounds equal bilaterally. GASTROINTESTINAL: Abdomen soft, non-tender, nondistended. MUSCULOSKELETAL: No obvious deformities. NEUROLOGICAL: Awake and alert. No obvious cranial nerve deficits. Moving all extremities. PSYCHIATRIC: Appropriate mood and affect; insight and judgment normal. Data Data Last Documented VS Vital Signs Date Time Temp Pulse Resp B/P (MAP) Pulse Ox O2 Delivery O2 Flow Rate FiO2 05/24/17 17:48 104 18 118/57 (77) 97 Nasal Cannula 2.00 05/24/17 10:04 98.7 Orders Orders Complete Blood Count With Diff (05/24/17 12:44) Comprehensive Metabolic Panel (05/24/17 12:44) Lipase (05/24/17 12:44) Lactic Acid (05/24/17 12:44) Prothrombin Time / Inr (Pt) (05/24/17 12:44) Act Partial Throm Time (Ptt) (05/24/17 12:44) Urinalysis - C+S If Indicated (05/24/17 12:44) Iv Access Insert/Monitor (05/24/17 12:44) NPO (05/24/17 12:44) Ondansetron Inj (Zofran Inj) (05/24/17 12:45) Electrocardiogram (05/24/17 12:44) Type And Screen (05/24/17 12:45) Orthostatic Vital Signs (05/24/17 13:13) Urine Culture (05/24/17 13:20) Chest, Single Ap (05/24/17 ) Cta Thor Abd Aorta W Iv C W3d (05/24/17 ) Iohexol 350 Inj (Omnipaque 350 Inj) (05/24/17 10:02) Admit Order (Ed Use Only) (05/24/17 18:24) Labs Laboratory Tests Test 05/24/17 13:20 05/24/17 13:25 Urine Color YELLOW Urine Turbidity HAZY Urine pH 5.5 Urine Specific [place] 1.017 Urine Protein 30 mg/dL Urine Glucose (UA) NEG mg/dL Urine Ketones NEG mg/dL Urine Occult Blood NEG Urine Nitrite NEG Urine Bilirubin NEG Urine Urobilinogen 2.0 MG/DL Urine Leukocyte Esterase SMALL Urine RBC 1 /hpf Urine WBC 9 /hpf Urine WBC Clumps RARE Urine Squamous Epithelial Cells 10 /hpf Urine Transitional Epithelial Cells <1 /hpf Urine Bacteria MOD /hpf Urine Hyaline Casts 8 /lpf Urine Mucus MANY /lpf Microscopic Urinalysis Comment CULTURE INDICATED White Blood Count 8.6 TH/MM3 Red Blood Count 3.47 MIL/MM3 Hemoglobin 10.3 GM/DL Hematocrit 31.7 % Mean Corpuscular Volume 91.3 FL Mean Corpuscular Hemoglobin 29.8 PG Mean Corpuscular Hemoglobin Concent 32.7 % Red Cell Distribution Width 14.9 % Platelet Count 206 TH/MM3 Mean Platelet Volume 9.4 FL Neutrophils (%) (Auto) 68.0 % Lymphocytes (%) (Auto) 21.3 % Monocytes (%) (Auto) 8.9 % Eosinophils (%) (Auto) 1.3 % Basophils (%) (Auto) 0.5 % Neutrophils # (Auto) 5.8 TH/MM3 Lymphocytes # (Auto) 1.8 TH/MM3 Monocytes # (Auto) 0.8 TH/MM3 Eosinophils # (Auto) 0.1 TH/MM3 Basophils # (Auto) 0.0 TH/MM3 CBC Comment DIFF FINAL Differential Comment Prothrombin Time 10.9 SEC Prothromb Time International Ratio 1.1 RATIO Activated Partial Thromboplast Time 25.3 SEC Blood Urea Nitrogen 13 MG/DL Creatinine 0.60 MG/DL Random Glucose 91 MG/DL Total Protein 6.5 GM/DL Albumin 2.7 GM/DL Calcium Level 8.4 MG/DL Alkaline Phosphatase 183 U/L Aspartate Amino Transf (AST/SGOT) 11 U/L Alanine Aminotransferase (ALT/SGPT) 10 U/L Total Bilirubin 0.4 MG/DL Sodium Level 141 MEQ/L Potassium Level 3.6 MEQ/L Chloride Level 107 MEQ/L Carbon Dioxide Level 27.1 MEQ/L Anion Gap 7 MEQ/L Estimat Glomerular Filtration Rate 97 ML/MIN Lactic Acid Level 2.1 mmol/L Lipase 110 U/L [facility] Medical Decision Making Medical Screen Exam Complete: Yes Emergency Medical Condition: Yes Interpretation(s) Afebrile, tachycardic Hemoglobin was 10.3 which reportedly as the same as discharge from [facility] Electrolytes are reassuring CTA demonstrates an outpouching of the proximal descending thoracic aorta that extends into the esophagus suggestive of a small esophagoaortic fistula Differential Diagnosis Esophageal variceal bleed, esophageal tear, esophago-aortic fistula Narrative Course This is a 76-year-old female who presents to the emergency department with hemoptysis following an EGD over the weekend which prompted a large amount of blood loss. Here she was placed in a monitored an IV was established. She was found to be mildly tachycardic but otherwise stable in asymptomatic. Labs were obtained which demonstrate a hemoglobin which was similar to her prior. 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 I discussed the case with Dr. Tej gupta in radiology as well as Dr. Aguilera who was on-call for vascular surgery. Dr. Aguilera will take the patient to the operating room this evening for aortic stent placement. I also spoke to the rehab tech Dr. Menendez who will admit the patient. Critical Care Narrative Aggregate critical care time was 60 minutes. Time to perform other separately billable procedures was not included in the critical care time. My time did not include minutes spent treating any other patients simultaneously or on activities that did not directly contribute to the patient's treatment. The services I provided to this patient were to treat and/or prevent clinically significant deterioration that could result in: Disability, I provided critical care services requiring my management, as noted below: Chart data review, documentation time, medication orders and management, vital sign assessments/reviewing monitor data, ordering and reviewing lab tests, ordering and interpreting/reviewing x-rays and diagnostic studies, care of the patient and discussion of the patient with the admitting physicians. Physician Communication Physician Communication Discussed with Ale Bustamante and Dr. Menendez Diagnosis Primary Impression: Aorto-esophageal fistula Admitting Information Admitting Physician Requests: Admit Janie Peña MD May 24, 2017 19:44
[2017-05-24] MEDS ORDERED: NALOXONE HCL 0.4 MG/ML AMP IV PUSH PRN (20:00)
[2017-05-24] MEDS ORDERED: SODIUM CHLORIDE 0.9% FLUSH 10 ML FLUSH IV FLUSH PRN (20:00)
[2017-05-24] MEDS ORDERED: SODIUM CHLOR 0.9% 1000 ML INJ 1,000 ML IV SCH (20:00)
[2017-05-24] MEDS ORDERED: MORPHINE SULFATE 2 MG/ML INJ IV PUSH PRN (20:00)
[2017-05-24] MEDS ORDERED: Post-op Orders (for Pharmacy) XX ONE (20:00)
[2017-05-24] MEDS ORDERED: metroNIDAZOLE 500 MG INJ 100 ML IV SCH (20:00)
[2017-05-24] MEDS ORDERED: LORATADINE 10 MG TAB PO PRN (20:15)
--- NOTE | 2017-05-24 20:59 | MB ---
cc: MARION DUMONT MD DATE OF CONSULTATION 05/24/17 REASON FOR CONSULTATION Aortic esophageal fistula bleeding. HISTORY OF PRESENT ILLNESS This 76-year-old female has a complex long history. She was diagnosed with lung cancer and underwent chemotherapy and redeveloped several esophageal strictures that recurrently were dilated. This last time this was stented. The patient had another stricture about a week ago in another hospital at which point stent was removed and esophageal stricture was dilated. In the process, the patient started bleeding from the esophagus, lost about three units of blood and then the bleeding stopped. The patient was then discharged from [facility] and now she is here in the emergency room with this history. Question arises about issues that might have contributed to this. PAST MEDICAL HISTORY 1. Lung cancer, 2. Recurrent esophageal strictures 3. Hypothyroidism 4. Hypertension. PAST SURGICAL HISTORY 1. Hysterectomy, 2. Tonsillectomy, 3. Repeated esophageal dilatations and a stent placed and reversal 4. Removal of G tube placement 5. [id number] placement. SOCIAL HISTORY The patient socially drinks. Does not smoke anymore, used smoke in the past. MEDICATIONS Can be found in the record PHYSICAL EXAMINATION GENERAL: A thin, frail 68-year-old lady, however, awake, alert and oriented and actually in good spirits considering the problems. HEENT: Normocephalic. No trauma to the head. Pupils equally reactive. Extraocular muscles intact. NECK: Supple, bilateral carotid pulses. No bruits. CHEST: Clear, bilateral breath sounds decreased over both lung mccracken. The patient has advanced pulmonary changes and COPD. HEART: Regular rhythm. ABDOMEN: Soft. Active bowel sounds. No rebound or guarding. No masses. EXTREMITIES: The patient actually has palpable femoral, popliteal, dorsalis pedis, posterior tibial pulses and good vasculature. BACK: Normal. The patient appears to be very frail and obviously lost significant amount of weight. IMPRESSION/RECOMMENDATIONS I reviewed laboratory and diagnostic procedures. CTA performed this evening reveals an area of aorta just as the aortic arch goes into the descending aorta where there is a small nubbin of contrast going toward the esophagus but does not quite communicate with the same. There is no question in my mind that this patient has esophago-aortic fistula and that is where she bled from. She is not a candidate for an open operation. If I tried to do it open, she would definitely succumb to this. The patient, however, is a candidate for thoracic aorta stent placement. She will probably require 28 mm x 12 cm stent and I have discussed this with Dr. Tej Machado who is also seeing patients with me. We are going to do this procedure tomorrow in a team approach and we have discussed it with the patient and her daughter in detail. Despite the fact that she has fistula, aortic stents can be placed safely without getting infected. This is the only way we can save this patient, because if we do not do this she will from bleeding. Patient will be taken to the operating room early in the morning. Thank much for referral. Critical care time 50 minutes. Marion MEDINA/ /8:14 PM /8:35 PM NOELLE
[2017-05-24] MEDS ORDERED: ESTRADIOL 0.1 MG/24 HR PATCH T-DERMAL SCH (21:00)
[2017-05-24] MEDS: SODIUM CHLORIDE 0.9% FLUSH 10 ML FLUSH IV FLUSH SCH (21:00)
[2017-05-24] MEDS: DIAZEPAM 5 MG TAB PO SCH ×2 (21:00→22:00)
[2017-05-24] MEDS ORDERED: REMOVE OLD CLIMARA (ESTRADIOL) PATCH T-DERMAL SCH (21:00)
[2017-05-24] MEDS: PANTOPRAZOLE SODIUM 40 MG VIAL IV PUSH SCH (21:02)
[2017-05-24] MEDS: VANCOMYCIN INJ 1,000 MG in SODIUM CHLOR 0.9% 250 ML INJ 250 ML IV SCH (21:02)
--- NOTE | 2017-05-24 21:26 | HHI.HP ---
[facility] Service Critical Care Medicine Primary Care Physician Radha Berumen MD Admission Diagnosis aortoesophageal fistula Diagnosis: (1) Lung cancer (2) Radiation-induced esophageal stricture (3) Non-small cell lung cancer (NSCLC) (4) Aorto-esophageal fistula Travel History International Travel<30 Days: No Contact w/Intl Traveler <30 Da: No Traveled to Known Affected Are: No History of Present Illness 76 year-old female with past medical history non-small cell lung cancer stage IIb discovered in May/Jun 2016 status post chemotherapy and 35 radiation treatments completed in August of 2016. She has had radiation esophagitis and recurrent stricture with recurrent food bolus impaction requiring numerous esophageal dilatation procedures (patient and her daughter estimate about 10) and esopahgeal stent 12/24/16. She states that on 05/18/17 that she was having hematemesis and went to [facility].She underwent removal of food foreign body and esophageal dilation by Dr. Monzon. Dr. Monzon states that upon second dilation he encountered a large amount of bleeding. He was able to tamponade and obtain hemostasis. Lindsay tube was inserted and she remained intubated overnight. Lindsay tube was removed the next day and she had no further bleeding and diet was advanced. Patients daughter (who is an RN) reports she received 2 units PRBC. She states that since discharge she "has been doing well" until she "spit up" about 1 teaspoon of bright red blood today (denies actual vomiting). She discussed with Drs. Monzon who recommended evaluation in the emergency department and workup for aortoesophageal fistula. CTA was performed and demonstrated outpouching of the proximal descending aorta concerning for small aortic esophageal fistula. Did not appear to be actively bleeding. Dr. Vasquez has been consulted and plans to proceed with endovascular aortic stent at 9 am on 05/25/16. Patient has not noted any additional bleeding since what occurred before 9 AM on 05/24. Hemoglobin is 10.3 (previously 12.8 on 04/25/17) Coags are normal. She has not been on antiplatelet or anticoagulant therapy. She is being admitted to [facility] per critical care medicine Past Family Social History Allergies: Coded Allergies: Sulfa (Sulfonamide Antibiotics) (Verified Allergy, Severe, SWELLING, ) Past Medical History Non-small cell lung cancer diagnosed by CT-guided biopsy 06/14/16 status post concurrent radiation and chemotherapy completed in August 2016 Dysphagia - Radiation esophagitis with recurrent esophageal stricture and food bolus impaction. GERD Anxiety Hypothyroidism Macular degeneration Prior coag negative staph bacteremia. Port removed. had PEG which subsequently became dislodged and she developed infection and fistula. Was on TPN, now healed. Previously had hypertension hyperlipidemia but is now off medication following significant weight loss associated with cancer diagnoses Past Surgical History PEG which subsequently became dislodged and she developed infection and fistula. Was on TPN, now healed. Port has been placed and subsequently removed due to coag negative staph bacteremia Hysterectomy Tonsillectomy Multiple esophageal dilatation procedures Esophageal stent 12/24/16 (Dr. Tej Machado) Exploratory laparotomy 12/27/14 due to enlarged lymph nodes in the macey hepatis and lesser curvature of stomach. Pathology was benign. (Dr. Jenkins) CT-guided lung biopsy 06/14/16 Reported Medications Oxycodone 5 mg by mouth every 4 hours as needed for pain Amitriptyline 25 mg by mouth daily at bedtime Clorazepate 3.5 mg by mouth 3 times a day Dexilant 30 mg by mouth daily Estradiol patch 0.1 mg per 24 hour Synthroid 75 g by mouth daily Family History Mother of pancreatic cancer at age 73 Father with a dental abscess and sounds like he from endocarditis and septic shock in his early 50s Sister with sarcoma Brother with colon cancer Social History [id number] history of smoking, quit 4 years ago No alcohol or illicit drug use She wants her daughter, Juanita Sullivan, to be her healthcare surrogate Physical Exam Vital Signs Vital Signs Date Time Temp Pulse Resp B/P (MAP) Pulse Ox O2 Delivery O2 Flow Rate FiO2 05/24/17 19:26 101 16 106/58 (74) 96 Nasal Cannula 2.00 05/24/17 17:48 104 18 118/57 (77) 97 Nasal Cannula 2.00 05/24/17 14:23 101 18 102/51 (68) 95 Room Air 05/24/17 14:22 101 18 102/51 (68) 104 18 96/49 (65) 113 18 94/53 (67) 05/24/17 12:21 108 19 119/59 (79) 95 Room Air 05/24/17 12:15 19 05/24/17 10:04 98.7 112 18 124/57 96 Physical Exam GENERAL: Thin well, developed female who is sitting up in ED stretcher. She is alert and conversant but allows her daughter to answer most medical history questions, deferring to her based on her medical background. SKIN: Warm and dry, well perfused HEAD: Atraumatic. Normocephalic. EYES: Pupils equal and round, 3 mm and sluggishly reactive bilaterally. No scleral icterus. No injection or drainage. ENT: No nasal bleeding or discharge. Mucous membranes pink and moist. Upper dentures in place. NECK: Trachea midline. No JVD. CARDIOVASCULAR: Regular rate and rhythm. No murmurs rubs or gallops. RESPIRATORY: Breathing comfortably with No accessory muscle use. Clear to auscultation. Breath sounds equal bilaterally. On 2 L nasal cannula. GASTROINTESTINAL: Abdomen soft, non-tender, nondistended. Well-healed vertical incision, supra umbilical. Hepatic and splenic margins not palpable. MUSCULOSKELETAL: Extremities without clubbing, cyanosis, or edema. No obvious deformities. NEUROLOGICAL: Awake and alert, oriented 4 and very talkative. Raspy voice. Motor grossly within normal limits. Laboratory Laboratory Tests Test 05/24/17 13:20 05/24/17 13:25 Urine Color YELLOW Urine Turbidity HAZY Urine pH 5.5 Urine Specific Babbitt 1.017 Urine Protein 30 Urine Glucose (UA) NEG Urine Ketones NEG Urine Occult Blood NEG Urine Nitrite NEG Urine Bilirubin NEG Urine Urobilinogen 2.0 Urine Leukocyte Esterase SMALL Urine RBC 1 Urine WBC 9 Urine WBC Clumps RARE Urine Squamous Epithelial Cells 10 Urine Transitional Epithelial Cells <1 Urine Bacteria MOD Urine Hyaline Casts 8 Urine Mucus MANY Microscopic Urinalysis Comment CULTURE INDICATED White Blood Count 8.6 Red Blood Count 3.47 Hemoglobin 10.3 Hematocrit 31.7 Mean Corpuscular Volume 91.3 Mean Corpuscular Hemoglobin 29.8 Mean Corpuscular Hemoglobin Concent 32.7 Red Cell Distribution Width 14.9 Platelet Count 206 Mean Platelet Volume 9.4 Neutrophils (%) (Auto) 68.0 Lymphocytes (%) (Auto) 21.3 Monocytes (%) (Auto) 8.9 Eosinophils (%) (Auto) 1.3 Basophils (%) (Auto) 0.5 Neutrophils # (Auto) 5.8 Lymphocytes # (Auto) 1.8 Monocytes # (Auto) 0.8 Eosinophils # (Auto) 0.1 Basophils # (Auto) 0.0 CBC Comment DIFF FINAL Differential Comment Prothrombin Time 10.9 Prothromb Time International Ratio 1.1 Activated Partial Thromboplast Time 25.3 Blood Urea Nitrogen 13 Creatinine 0.60 Random Glucose 91 Total Protein 6.5 Albumin 2.7 Calcium Level 8.4 Alkaline Phosphatase 183 Aspartate Amino Transf (AST/SGOT) 11 Alanine Aminotransferase (ALT/SGPT) 10 Total Bilirubin 0.4 Sodium Level 141 Potassium Level 3.6 Chloride Level 107 Carbon Dioxide Level 27.1 Anion Gap 7 Estimat Glomerular Filtration Rate 97 Lactic Acid Level 2.1 Lipase 110 Date/Time Source Procedure Growth Status 05/24/17 13:20 Urine Random Urine Urine Culture Pending Received Result Diagram: 05/24/17 1325 05/24/17 1325 Caprini VTE Risk Assessment Caprini VTE Risk Assessment: Mod/High Risk (score >= 2) VTE Pharm Contraindication: High risk for bleeding Caprini Risk Assessment Model Point Value = 1 Point Value = 2 Point Value = 3 Point Value = 5 Age 41-60 Minor surgery BMI > 25 kg/m2 Swollen legs Varicose veins or History of unexplained or recurrent spontaneous Oral contraceptives or hormone replacement Sepsis (< 1 month) Serious lung disease, including pneumonia (< 1 month) Abnormal pulmonary function Acute myocardial infarction Congestive heart failure (< 1 month) History of inflammatory bowel disease Medical patient at bed rest Age 61-74 Arthroscopic surgery Major open surgery (> 45 min) Laparoscopic surgery (> 45 min) Malignancy Confined to bed (> 72 hours) Immobilizing plaster cast Central venous access Age >= 75 History of VTE Family history of VTE Factor V Leiden Prothrombin [id number] Lupus anticoagulant Anticardiolipin antibodies Elevated serum homocysteine Heparin-induced thrombocytopenia Other congenital or acquired thrombophilia Stroke (< 1 month) Elective arthroplasty Hip, pelvis, or leg fracture Acute spinal cord injury (< 1 month) Prophylaxis Regimen Total Risk Factor Score Risk Level Prophylaxis Regimen 0-1 Low Early ambulation 2 Moderate Order ONE of the following: *Sequential Compression Device (SCD) *Heparin 5000 units SQ BID 3-4 Higher Order ONE of the following medications: *Heparin 5000 units SQ TID *Enoxaparin/Lovenox 40 mg SQ daily (WT < 150 kg, CrCl > 30 mL/min) *Enoxaparin/Lovenox 30 mg SQ daily (WT < 150 kg, CrCl > 10-29 mL/min) *Enoxaparin/Lovenox 30 mg SQ BID (WT < 150 kg, CrCl > 30 mL/min) AND/OR *Sequential Compression Device (SCD) 5 or more Highest Order ONE of the following medications: *Heparin 5000 units SQ TID (Preferred with Epidurals) *Enoxaparin/Lovenox 40 mg SQ daily (WT < 150 kg, CrCl > 30 mL/min) *Enoxaparin/Lovenox 30 mg SQ daily (WT < 150 kg, CrCl > 10-29 mL/min) *Enoxaparin/Lovenox 30 mg SQ BID (WT < 150 kg, CrCl > 30 mL/min) AND *Sequential Compression Device (SCD) Assessment and Plan Assessment and Plan NEURO: Anxiety Oxycodone 5 mg as needed for pain (has taken at home before) her home clorazepate 3.75 by mouth 3 times a day was converted to Valium 5 mg by mouth every 12 hours Continue amitriptyline 25 mg by mouth daily at bedtime RESP: Nasal cannula wean as tolerated. Incentive spirometry every hour awake CV: Monitor hemodynamics Previous history of hypertension but not has not been on antihypertensives since losing significant weight. Has history of hyperlipidemia but has been off statins since radiation therapy GI: Aorta esophageal fistula Dysphagia secondary to Radiation esophagitis, esophageal stricture s/p multiple multiple dilation procedures, s/p esophageal stent 12/2016. Prior history of PEG placement with subsequent dislodgement, infection and fistula which has subsequently healed. Clear liquids then Nothing by mouth at midnight per Dr. Vasquez. On dexilant 30 po daily as outpatient . Protonix ordered as per below. FEN/RENAL: Voiding. Monitor intake and output. BMP/magnesium/ in a.m. Replace electrolytes as indicated per ICU likely replacement protocol. ID: Bacteriuria Follow up urine culture. Obtain blood culture. On Zosyn 3.375 g IV every 8 hours and vancomycin per Dr. Vasquez due to aortic esophageal fistula HEME: Non-small cell lung cancer stage IIIB status post concurrent chemotherapy and radiation completed August/2017. Dr.Awais Montiel is her oncologist. Radiation oncologist is Dr. Hernandez Acute blood loss anemia Hemoglobin is 10.3. She has not clinically noted any additional bleeding and is currently hemodynamically stable. Check CBC in a.m. Coags are normal . Platelet count. She has not been on any anticoagulant or antiplatelet therapy 2 units packed cells-hold. ENDO: Hypothyroidism Continue Synthroid 75 g by mouth daily Euglycemic OPHTHO: Macular degeneration Followed by ophthalmology outpatient PROPH: SCDs for DVT prophylaxis. Pharmacologic DVT prophylaxis contraindicated due to concern for hemorrhage from aortoesophageal fistula. Protonix 40 mg IV daily for stress ulcer prophylaxis ACCESS: Peripheral IV providing at this time. She previously had a port that was previously removed due to coag negative staph bacteremia. Level 2 H&P Sandra Menendez MD May 24, 2017 21:26
[2017-05-24] MEDS: PIPERACIL-TAZO 3.375 GM PREMIX 50 ML IV SCH (22:00)
[2017-05-24] MEDS: AMITRIPTYLINE HCL 25 MG TAB PO SCH (22:08)
[2017-05-24] MEDS ORDERED: POTASSIUM PHOSPHATE INJ 30 MMOL in SODIUM CHLOR 0.9% 250 ML INJ 250 ML IV PRN (22:17)
[2017-05-24] MEDS ORDERED: POTASSIUM CHLOR 40 MEQ PREMIX 100 ML IV PRN ×2 (22:30)
[2017-05-24] MEDS ORDERED: SODIUM PHOSPHATE INJ 30 MMOL in SODIUM CHLOR 0.9% 250 ML INJ 240 ML IV PRN (22:30)
[2017-05-24] MEDS ORDERED: POTASSIUM CHLORIDE 25 MEQ EFFERVESCENT TAB PO PRN (22:30)
[2017-05-24] MEDS ORDERED: POTASSIUM PHOSPHATE MONOBASIC 500 MG TAB PO PRN (22:30)
[2017-05-24] MEDS ORDERED: MAGNESIUM OXIDE 400 MG TAB PO PRN (22:30)
[2017-05-24] MEDS ORDERED: POTASSIUM CHLOR 20 MEQ PREMIX 100 ML IV PRN ×2 (22:30)
[2017-05-24] MEDS ORDERED: MAGNESIUM SULFATE INJ 2 GM in SODIUM CHLORIDE 0.9% INJ 96 ML IV PRN (22:30)
[2017-05-24] MEDS ORDERED: MAGNESIUM SULFATE INJ 4 GM in SODIUM CHLORIDE 0.9% INJ 92 ML IV PRN (22:30)
[2017-05-25] VITALS (24 sets, daily range): BP systolic 100–147; BP diastolic 52–68; PULSE 75–98; RESP 17–29; TEMP 97–98.5; O2SAT 95–99
[2017-05-25] MEDS: PIPERACIL-TAZO 3.375 GM PREMIX 50 ML IV SCH ×3 (05:14→20:12)
[2017-05-25] MEDS: LEVOTHYROXINE SODIUM 75 MCG TAB PO SCH (05:14)
--- NOTE | 2017-05-25 05:54 | HHI.CCPN ---
Subjective Remarks/Hospital Course 76 year-old female with past medical history non-small cell lung cancer stage IIb discovered in May/Jun 2016 status post chemotherapy and 35 radiation treatments completed in August of 2016. She has had radiation esophagitis and recurrent stricture with recurrent food bolus impaction requiring numerous esophageal dilatation procedures (patient and her daughter estimate about 10) and esopahgeal stent 12/24/16. She states that on 05/18/17 that she was having hematemesis and went to [facility].She underwent removal of food foreign body and esophageal dilation by Dr. Monzon. Dr. Monzon states that upon second dilation he encountered a large amount of bleeding. He was able to tamponade and obtain hemostasis. Lindsay tube was inserted and she remained intubated overnight. Lindsay tube was removed the next day and she had no further bleeding and diet was advanced. Patients daughter (who is an RN) reports she received 2 units PRBC. She states that since discharge she "has been doing well" until she "spit up" about 1 teaspoon of bright red blood today (denies actual vomiting). She discussed with Drs. Monzon who recommended evaluation in the emergency department and workup for aortoesophageal fistula. CTA was performed and demonstrated outpouching of the proximal descending aorta concerning for small aortic esophageal fistula. Did not appear to be actively bleeding. Dr. Vasquez has been consulted and plans to proceed with endovascular aortic stent at 9 am on 05/25/16. Patient has not noted any additional bleeding since what occurred before 9 AM on 05/24. Hemoglobin is 10.3 (previously 12.8 on 04/25/17) Coags are normal. She has not been on antiplatelet or anticoagulant therapy. She is being admitted to [facility] per critical care medicine Subjective 05/25: Currently resting in bed in no acute distress. Currently with non- productive cough which she treats to "phlegm". No further hematemesis noted. Afebrile. Plan to IR today for stenting by Dr. Vasquez. Objective Vital Signs Date Time Temp Pulse Resp B/P (MAP) Pulse Ox O2 Delivery O2 Flow Rate FiO2 05/25/17 04:00 93 05/25/17 04:00 98.5 29 110/56 (74) 96 05/24/17 21:30 Nasal Cannula 2.00 Result Diagram: 05/24/17 1325 05/24/17 1325 Other Results Microbiology Date/Time Source Procedure Growth Status 05/25/17 00:35 Blood Peripheral Aerobic Blood Culture Pending Received 05/25/17 00:35 Blood Peripheral Anaerobic Blood Culture Pending Received 05/24/17 13:20 Urine Random Urine Urine Culture Pending Received Imaging Last Impressions Chest X-Ray 05/24/17 0000 Signed Impressions: Service Date/Time: Wednesday, May 24, 2017 14:56 - CONCLUSION: Interval removal of chest port and esophageal stent. No definite acute findings. Og Joya MD Aorta CTA 05/24/17 0000 Signed Impressions: Service Date/Time: Wednesday, May 24, 2017 15:38 - CONCLUSION: 1. The examination demonstrates a small outpouching of the proximal portion of the descending thoracic aorta. This extends up to and partially projects into a thickened, grossly abnormal appearing segment of the esophagus. 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 This does not appear actively bleeding at this time. 2. Results were called to Dr. yarbrough in the ED. Clifford Machado MD Objective Remarks GENERAL: 76 YO F resting in bed in no acute distress SKIN: Warm and dry, well perfused HEAD: Atraumatic. Normocephalic. EYES: Pupils equal and round, 3 mm and sluggishly reactive bilaterally. No scleral icterus. No injection or drainage. ENT: No nasal bleeding or discharge. Mucous membranes pink and moist. Upper dentures in place. NECK: Trachea midline. No JVD. CARDIOVASCULAR: Regular rate and rhythm. S1, S2. No S4 No murmurs rubs or gallops. RESPIRATORY: Clear to auscultation without wheezing rales or rhonchi. GASTROINTESTINAL: Abdomen soft, non-tender, nondistended. Well-healed vertical incision, supra umbilical. Hypoactive bowel sounds appreciated MUSCULOSKELETAL: Extremities without noted in peripheral edema. No obvious deformities. NEUROLOGICAL: Awake and alert. Cranial nerves II through XII appear grossly intact. Strength appears equal and symmetric. Raspy voice. Urinary Catheter: No Assessment to: Continue Vascular Central Line Catheter: No Assessment to: Continue A/P Assessment and Plan NEURO/PSYCH: Anxiety Ofirmev 1 g IV every 8 hours when necessary fever/pain 1-2 Oxycodone 5 mg as needed for pain 3 through 5 (has taken at home before) Morphine sulfate 2 g IV every 3 hours as needed pain 6-10 Home dose clorazepate 3.75 milligrams by mouth 3 times a day was converted to diazepam 5 mg by mouth every 12 hours Continue amitriptyline 25 mg by mouth daily at bedtime RESP: Nasal cannula to maintain saturations greater than equal to 92% Incentive spirometry every hour awake CV: History of hypertension History of dyslipidemia Monitor hemodynamics Currently normal saline with potassium chloride 84 cc an hour Previous history of hypertension but not has not been on antihypertensives since losing significant weight. Radius history of hyperlipidemia but has been off statins since radiation therapy GI: Aorta esophageal fistula Dysphagia secondary to Radiation esophagitis, esophageal stricture s/p multiple multiple dilation procedures, s/p esophageal stent 12/2016. Hypoalbuminemia CTA aorta - focal outpouching the distal arch and the descending thoracic aorta. Likely small esophageal fistula. Prior history of PEG placement with subsequent dislodgement, infection and fistula which has subsequently healed. Currently nothing by mouth at midnight per Dr. Vasquez. Plan for stenting in IR this AM On dexlansoprazole 30 milligrams po daily as outpatient or gastroesophageal reflux disease . Pantoprazole 40 mg IV daily RENAL: Monitor intake and output. Accurate I's and O's Follow-up creatinine in a.m. ID: Bacteriuria Follow up urine culture 05/24 05/25 blood culture. Pending On piperacillin/tazobactam 3.375 g IV every 8 hours and vancomycin 1 g every 12 hours times [address] Vasquez due to aortic esophageal fistula HEME/ONC: Non-small cell lung cancer stage IIIB status post concurrent chemotherapy and radiation completed August/2017. Dr. Montiel is her oncologist. Radiation oncologist is Dr. Hernandez Acute blood loss anemia - normocytic normochromic Hemoglobin is 10.3. She has not clinically noted any additional bleeding and is currently hemodynamically stable. Check CBC in a.m. Coags are normal . Platelet count. She has not been on any anticoagulant or antiplatelet therapy 2 units packed cells-hold. ENDO: Hypothyroidism Continue Synthroid 75 g by mouth daily Check TSH Sliding scale insulin case before meals/at bedtime to maintain euglycemia/24 hours discontinued. Glycemic OPHTHO: Macular degeneration Followed by ophthalmology outpatient [employer]: HRT: Continue estradiol patch are 0.1 milligrams every 24 hours/weekly replaced FEN: Continue multivitamin 1 tab by mouth daily Replace electrolytes as clinically indicated per ICU electrolyte protocol PROPH: SCDs for DVT prophylaxis. Pharmacologic DVT prophylaxis contraindicated due to concern for hemorrhage from aortoesophageal fistula. Pantoprazole 40 mg IV daily for stress ulcer prophylaxis ACCESS: Peripheral IV providing at this time. She previously had a port that was previously removed due to coag negative staph bacteremia. Level 2 followup Leonel Leonard MD May 25, 2017 05:54
[2017-05-25 06:05] LABS: AUTOMATED NEUTROPHIL # 4.1 TH/MM3 (1.8-7.7); BASOPHIL # 0.1 TH/MM3 (0-0.2); BASOPHIL % 0.7 % (0.0-2.0); EOSINOPHIL # 0.3 TH/MM3 (0-0.4); EOSINOPHIL % 3.8 % (0.0-4.0); HEMATOCRIT 25.7 % (35.0-46.0); HEMOGLOBIN 8.7 GM/DL (11.6-15.3); LYMPH % 29.5 % (9.0-44.0); LYMPHOCYTE # 2.2 TH/MM3 (1.0-4.8); MEAN CORPUSCULAR HGB CONC 33.7 % (32.0-36.0); MEAN PLATELET VOLUME 9.5 FL (7.0-11.0); MONOCYTE # 0.8 TH/MM3 (0-0.9); PLATELET COUNT 183 TH/MM3 (150-450); RED BLOOD COUNT 2.89 MIL/MM3 (4.00-5.30); RED CELL DISTRIBUTION WIDTH 14.7 % (11.6-17.2); WHITE BLOOD COUNT 7.5 TH/MM3 (4.0-11.0)
[2017-05-25 06:26] LABS: BICARBONATE 26.4 MEQ/L (21.0-32.0); CALCIUM 7.8 MG/DL (8.5-10.1); CREATININE 0.63 MG/DL (0.50-1.00); MAGNESIUM 1.8 MG/DL (1.5-2.5); PHOSPHORUS 2.9 MG/DL (2.5-4.9)
[2017-05-25] MEDS ORDERED: ACETAMINOPHEN 1000 MG/100 ML 100 ML IV PRN (07:30)
[2017-05-25] MEDS: NS + KCL 20 MEQ INJ 1,000 ML IV SCH ×2 (08:15→19:25)
[2017-05-25] MEDS: MAGNESIUM SULFATE 1 GM PREMIX 100 ML IV SCH ×2 (08:15→08:30)
[2017-05-25] MEDS: VANCOMYCIN INJ 1,000 MG in SODIUM CHLOR 0.9% 250 ML INJ 250 ML IV SCH (08:15)
[2017-05-25] MEDS: DIAZEPAM 5 MG TAB PO SCH ×2 (08:16→20:13)
[2017-05-25] MEDS: SODIUM CHLORIDE 0.9% FLUSH 10 ML FLUSH IV FLUSH SCH ×2 (08:16→20:14)
[2017-05-25] MEDS ORDERED: RESP: ALBUTEROL 2.5 MG/3 ML NEB (PRN) NEB (08:45)
[2017-05-25] MEDS ORDERED: DEXTROSE 50% IN WATER 50 ML VIAL(D50) IV PUSH PRN (08:45)
[2017-05-25] MEDS ORDERED: GLUCAGON 1 MG/ML VIAL OTHER PRN ×2 (08:45)
[2017-05-25] MEDS ORDERED: CLORAZEPATE 3.75 MG PO SCH (09:00)
--- NOTE | 2017-05-25 10:23 | EKG ---
Date Performed: 05/24/2017 Time Performed: 13:55:48 PTAGE: 76 years EKG: SINUS TACHYCARDIA POSSIBLE LEFT ATRIAL ENLARGEMENT POSSIBLE ANTERIOR MYOCARDIAL INFARCTION ABNORMAL RHYTHM ECG PREVIOUS TRACING : 04/19/2017 09.02 DOCTOR: Niranjan Carlton Interpretating Date/Time 05/25/2017 10:20:47
[2017-05-25] MEDS ORDERED: PROTAMINE SULFATE 50 MG/5 ML VIAL ONE (12:20)
[2017-05-25] MEDS ORDERED: SODIUM CHLOR 0.9% 1000 ML INJ 1,000 ML IV SCH (12:28)
--- NOTE | 2017-05-25 12:34 | PD.RAD ---
Post Procedure Progress Note Pre Procedure Diagnosis: (1) Aorto-esophageal fistula Post Procedure Diagnosis: (1) Aorto-esophageal fistula Procedure Date: May 25, 2017 Supervising Radiologist: Clifford Machado Assisting Physician: Marion Vasquez MD Estimated blood loss: 10cc Anesthesia: LMA, Local Plan of Activity Patient to Unit: Critical Care Patient Condition: Good Additional Comments: 76 y/o with aortic esophageal fistula. Aotic endograft placed across the area of fistula without difficulty.Preformed as a combined procedure with Dr. Vasquez. Graft in excellent position across the lesion. Excellent flow post procedure. Full dictated report to follow. See PACS Report for procedural detail/treatment Clifford Machado MD May 25, 2017 12:34
[2017-05-25] MEDS ORDERED: MIDAZOLAM HCL 2 MG/2 ML VIAL ONE (12:52)
[2017-05-25] MEDS ORDERED: IODIXANOL 320 MG/ML 50 ML VIAL (for RAD SPEC) I-ARTERIAL ONE (12:54)
[2017-05-25] MEDS: ONDANSETRON HCL 4 MG/2 ML VIAL IV PUSH PRN (13:12)
--- NOTE | 2017-05-25 13:52 | RADRPT ---
EXAM DATE/TIME: 05/25/2017 10:51 [place] COMPARISON: AORTOGRAM, THORACIC, May 25, 2017, 0:00. 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 MEDICAL HISTORY : Lung cancer, Chemotherapy and radiation, Radiation esophagitis, Recurrent esophageal strictures, Hypo thyroidism, HTN SURGICAL HISTORY : Port placement, G-tube placement and removal, Numerous esophageal dilatation procedures and esophagea l stent placement ENCOUNTER: Initial ACUITY: 1 week PAIN SCORE: 0/10 FLUORO TIME: 11.4 minutes IMAGE SERIES: 4 ACCESS SITE: Bilateral Femoral artery CONTRAST: 100 cc Visipaque (iodixanol) DEVICE(S): 1.) Thoracic aorta [id number] thoracic stent graft 2.) Right common femoral artery 6F Perclose 3.) Right common femoral artery 6F Perclose 4.) Left common femoral artery 6F Angio-Seal Anesthesia and pain control was provided by the Anesthesia department. PROCEDURE : 1. Ultrasound-guided puncture of the access site. 2. Angiography of the access site prior to closure device. 3. Conscious sedation with continuous EKG and Oximetry monitoring. 4. Percutaneous closure of the access site. 5. Angiography of the thoracic arch 6. placement of a thoracic endograft. 7. followup angiogram of the thoracic arch. Clinical history: The patient is a 76-year-old who underwent radiation therapy for lung cancer and developed radiation esophagitis. The patient had a stent placed within the esophagus. At the time of the removal of esoph ageal stent the patient suffered significant hemorrhage. Initially, the patient stabilized and was di scharged from an outside hospital. The patient went home and approximately 3-5 days later developed h ematemesis. CT angiography demonstrated a small esophageal aortic fistula. The risks, benefits and alternatives to the procedure were explained and verbal and written consent w as obtained. The risk included but were not limited to bleeding, infection, emergent surgery and rare ly paralysis. The site was prepped in sterile fashion. Full sterile technique was used, including c ap, mask, sterile gloves and gown and a large sterile sheet. Hand hygiene and 2% chlorhexidine and/o r betadine/alcohol prep was utilized per protocol for cutaneous antisepsis. Sterile gel and sterile probe cover were utilized for ultrasound guidance. The skin and subcutaneous tissues were infiltrate d with local anesthetic solution. The procedure was performed as a combined procedure with Dr. Vasquez as co-surgeon. He participated in all aspects of the case. With ultrasound and fluoroscopic guidance the right common femoral artery was accessed. two Perclose sutures were placed. A 7 Salvadorean sheath was advanced into the right groin. The left common femoral was accessed under direct or some visualization using a micropuncture technFlutter ue. A 6 Salvadorean sheath was left in place. A 0.035 angle Glidewire and marking pigtail catheter were advanced into the aortic arch. An aortic ar ch injection was performed. A 0.035 Lunderquist wire was advanced into the arch. A 28 x 28 x 15 cm en dograft was advanced over the wire. Position was confirmed with a second injection of contrast. The e ndograft was deployed without difficulty. Followup angiography demonstrated a graft in excellent position with continued flow in the great vess els from the arch. There is no evidence of contrast extravasation from the aorta following the proced ure. The right groin was closed with a Perclose sutures. The left groin was closed with Angio-Seal closure device. The procedure was performed under my anesthesia. EKG and oximetry remained stable throughout the proc edure. CONCLUSION: 1. 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 Clifford Machado MD on May 25, 2017 at 13:43 Board Certified Radiologist. This report was verified electronically.
--- NOTE | 2017-05-25 19:31 | PD.RAD ---
Radiology Note Pt S/p thoracic endograft placement due to esophageal aortic fistula. AFVSS. Pt. resting comfortably with no current complaints. Right groin looks good. No hematoma. Sensation and motor function to lower extremities intact. A/P Pt doing well post procedure likely DC tomorrow or Tuesday Clifford Machado MD May 25, 2017 19:31
[2017-05-25] MEDS: PANTOPRAZOLE SODIUM 40 MG VIAL IV PUSH SCH (20:10)
[2017-05-25] MEDS: AMITRIPTYLINE HCL 25 MG TAB PO SCH (20:12)
[2017-05-26] VITALS (13 sets, daily range): BP systolic 91–152; BP diastolic 47–71; PULSE 91–104; RESP 20–30; TEMP 97.1–100.3; O2SAT 93–99
[2017-05-26] MEDS: PIPERACIL-TAZO 3.375 GM PREMIX 50 ML IV SCH ×3 (04:19→20:07)
[2017-05-26] MEDS: LEVOTHYROXINE SODIUM 75 MCG TAB PO SCH (05:30)
[2017-05-26 05:50] LABS: AUTOMATED NEUTROPHIL # 5.7 TH/MM3 (1.8-7.7); BASOPHIL % 0.5 % (0.0-2.0); EOSINOPHIL # 0.2 TH/MM3 (0-0.4); EOSINOPHIL % 3.1 % (0.0-4.0); HEMATOCRIT 23.7 % (35.0-46.0); HEMOGLOBIN 7.9 GM/DL (11.6-15.3); LYMPH % 14.7 % (9.0-44.0); LYMPHOCYTE # 1.2 TH/MM3 (1.0-4.8); MEAN CELL VOLUME 89.5 FL (80.0-100.0); MEAN CORPUSCULAR HGB CONC 33.5 % (32.0-36.0); MEAN PLATELET VOLUME 9.6 FL (7.0-11.0); MONO % 10.4 % (0.0-8.0); MONOCYTE # 0.8 TH/MM3 (0-0.9); NEUT % 71.3 % (16.0-70.0); PLATELET COUNT 168 TH/MM3 (150-450); RED BLOOD COUNT 2.65 MIL/MM3 (4.00-5.30); RED CELL DISTRIBUTION WIDTH 14.8 % (11.6-17.2)
[2017-05-26 06:25] LABS: ALBUMIN 2.2 GM/DL (3.4-5.0); BICARBONATE 24.7 MEQ/L (21.0-32.0); CALCIUM 7.4 MG/DL (8.5-10.1); CALCIUM-PROTEIN CORRECTED 8.3 MG/DL (8.5-10.1); CREATININE 0.52 MG/DL (0.50-1.00); MAGNESIUM 1.9 MG/DL (1.5-2.5); PHOSPHORUS 2.8 MG/DL (2.5-4.9); TOTAL BILIRUBIN ADULT 0.5 MG/DL (0.2-1.0); TOTAL PROTEIN 5.5 GM/DL (6.4-8.2)
[2017-05-26] MEDS: NS + KCL 20 MEQ INJ 1,000 ML IV SCH (06:41)
[2017-05-26] MEDS: SODIUM CHLORIDE 0.9% FLUSH 10 ML FLUSH IV FLUSH SCH ×2 (07:42→20:07)
--- NOTE | 2017-05-26 08:12 | HHI.CCPN ---
Subjective Remarks/Hospital Course 76 year-old female with past medical history non-small cell lung cancer stage IIb discovered in May/Jun 2016 status post chemotherapy and 35 radiation treatments completed in August of 2016. She has had radiation esophagitis and recurrent stricture with recurrent food bolus impaction requiring numerous esophageal dilatation procedures (patient and her daughter estimate about 10) and esopahgeal stent 12/24/16. She states that on 05/18/17 that she was having hematemesis and went to [facility].She underwent removal of food foreign body and esophageal dilation by Dr. Monzon. Dr. Monzon states that upon second dilation he encountered a large amount of bleeding. He was able to tamponade and obtain hemostasis. Lindsay tube was inserted and she remained intubated overnight. Lindsay tube was removed the next day and she had no further bleeding and diet was advanced. Patients daughter (who is an RN) reports she received 2 units PRBC. She states that since discharge she "has been doing well" until she "spit up" about 1 teaspoon of bright red blood today (denies actual vomiting). She discussed with Drs. Monzon who recommended evaluation in the emergency department and workup for aortoesophageal fistula. CTA was performed and demonstrated outpouching of the proximal descending aorta concerning for small aortic esophageal fistula. Did not appear to be actively bleeding. Dr. Vasquez has been consulted and plans to proceed with endovascular aortic stent at 9 am on 05/25/16. Patient has not noted any additional bleeding since what occurred before 9 AM on 05/24. Hemoglobin is 10.3 (previously 12.8 on 04/25/17) Coags are normal. She has not been on antiplatelet or anticoagulant therapy. She is being admitted to [facility] per critical care medicine 05/25: Currently resting in bed in no acute distress. Currently with non- productive cough which she treats to "phlegm". No further hematemesis noted. Afebrile. Plan to IR today for stenting by Dr. Vasquez. Subjective 05/26: Afebrile. Status post placement of Thoraco-Aesophageal stent 28 x 28 x [address] Tej Machado/Christina yesterday successfully. Tolerating diet. No further hemoptysis/bleeding identified. Currently on 2 L nasal cannula. Objective Vital Signs Date Time Temp Pulse Resp B/P (MAP) Pulse Ox O2 Delivery O2 Flow Rate FiO2 05/26/17 06:00 92 05/26/17 04:00 97.5 27 112/53 (72) 96 05/25/17 19:00 Nasal Cannula 3.00 Intake and Output 05/26/17 05/26/17 05/27/17 08:00 16:00 00:00 Intake Total 1629 ml Output Total 1300 ml Balance 329 ml Result Diagram: 05/26/17 0421 05/26/17 042 Other Results Microbiology Date/Time Source Procedure Growth Status 05/25/17 00:35 Blood Peripheral Aerobic Blood Culture Pending Received 05/25/17 00:35 Blood Peripheral Anaerobic Blood Culture Pending Received 05/24/17 13:20 Urine Random Urine Urine Culture - Preliminary IMMATURE GROWTH - REINCUBATE Resulted Imaging Last Impressions Aneurysm Repair 05/25/17 0000 Signed Impressions: Service Date/Time: Thursday, May 25, 2017 10:51 - CONCLUSION: 1. 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 Clifford Machado MD Chest X-Ray 05/24/17 0000 Signed Impressions: Service Date/Time: Wednesday, May 24, 2017 14:56 - CONCLUSION: Interval removal of chest port and esophageal stent. No definite acute findings. Og Joya MD Aorta CTA 05/24/17 0000 Signed Impressions: Service Date/Time: Wednesday, May 24, 2017 15:38 - CONCLUSION: 1. The examination demonstrates a small outpouching of the proximal portion of the descending thoracic aorta. This extends up to and partially projects into a thickened, grossly abnormal appearing segment of the esophagus. 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 This does not appear actively bleeding at this time. 2. Results were called to Dr. yarbrough in the ED. Clifford Machado MD Objective Remarks GENERAL: 76 YO F resting in bed in no acute distress on 2 L nasal cannula SKIN: Warm and dry, well perfused HEAD: Atraumatic. Normocephalic. EYES: Pupils equal and round, 3 mm and sluggishly reactive bilaterally. No scleral icterus. No injection or drainage. ENT: No nasal bleeding or discharge. Mucous membranes pink and moist. Upper dentures in place. NECK: Trachea midline. No JVD. CARDIOVASCULAR: Regular rate and rhythm. S1, S2. No S4 No murmurs rubs or gallops. RESPIRATORY: Clear to auscultation without wheezing rales or rhonchi. GASTROINTESTINAL: Abdomen soft, non-tender, nondistended. Well-healed vertical incision, supra umbilical. Hypoactive bowel sounds appreciated MUSCULOSKELETAL: Extremities without noted in peripheral edema. No obvious deformities. NEUROLOGICAL: Awake and alert. Cranial nerves II through XII appear grossly intact. Strength appears equal and symmetric. Normal sensation Urinary Catheter: No Assessment to: Continue Vascular Central Line Catheter: No Assessment to: Continue A/P Assessment and Plan NEURO/PSYCH: Anxiety Ofirmev 1 g IV every 8 hours when necessary fever/pain 1-2 Oxycodone 5 mg as needed for pain 3 through 5 (has taken at home before) Morphine sulfate 2 g IV every 3 hours as needed pain 6-10 Home dose clorazepate 3.75 milligrams by mouth 3 times a day was converted to diazepam 5 mg by mouth every 12 hours Continue amitriptyline 25 mg by mouth daily at bedtime RESP: Nasal cannula to maintain saturations greater than equal to 92% currently on 2 L Incentive spirometry every hour awake CV: History of hypertension History of dyslipidemia Monitor hemodynamics Currently normal saline with potassium chloride 84 cc an hour. We'll discontinue today Previous history of hypertension but not has not been on antihypertensives since losing significant weight. Radius history of hyperlipidemia but has been off statins since radiation therapy GI: Aorta esophageal fistula - status post thoraco esophageal stent 28 x [address] Machado/Christina Dysphagia secondary to Radiation esophagitis, esophageal stricture s/p multiple multiple dilation procedures, s/p esophageal stent 12/2016. Hypoalbuminemia Elevated alkaline phosphatase CTA aorta - focal outpouching the distal arch and the descending thoracic aorta. Likely small esophageal fistula. Prior history of PEG placement with subsequent dislodgement, infection and fistula which has subsequently healed. Status post thoracoesophageal stent placement as above excessively On dexlansoprazole 30 milligrams po daily as outpatient or gastroesophageal reflux disease . Pantoprazole 40 mg IV daily Advance diet per surgery RENAL: Monitor intake and output. Accurate I's and O's Follow-up creatinine in a.m. ID: Bacteriuria Follow up urine culture 05/24 immature growth. 05/25 blood culture. No growth today On piperacillin/tazobactam 3.375 g IV every 8 hours and vancomycin 1 g every 12 hours times [address] Vasquez due to aortic esophageal fistula Any follow-up/home antibiotics per vascular surgery HEME/ONC: Non-small cell lung cancer stage IIIB status post concurrent chemotherapy and radiation completed August/2017. Dr. Montiel is her oncologist. Radiation oncologist is Dr. Hernandez Acute blood loss anemia - normocytic normochromic Hemoglobin is 10.3. She has not clinically noted any additional bleeding and is currently hemodynamically stable. Check CBC in a.m. Coags are normal . Platelet count. She has not been on any anticoagulant or antiplatelet therapy 2 units packed cells-hold. ENDO: Hypothyroidism Continue Synthroid 75 g by mouth daily Check TSH - 2.81 Sliding scale insulin case before meals/at bedtime to maintain euglycemia/24 hours discontinued. Glycemic OPHTHO: Macular degeneration Followed by ophthalmology outpatient WEAVER AXMINSTER: HRT: Continue estradiol patch are 0.1 milligrams every 24 hours/weekly replaced FEN: Hypocalcemia Continue multivitamin 1 tab by mouth daily Replace electrolytes as clinically indicated per ICU electrolyte protocol PROPH: SCDs for DVT prophylaxis. Pharmacologic DVT prophylaxis contraindicated due to concern for hemorrhage from aortoesophageal fistula. Pantoprazole 40 mg IV daily for stress ulcer prophylaxis ACCESS: Peripheral IV providing at this time. She previously had a port that was previously removed due to coag negative staph bacteremia. Level 2 followup. Patient is stable from a critical care medicine standpoint. Okay to transfer from ICU/discharge. Assign care to hospitalist in AM 05/27 if remains inpatent Leonel Leonard MD May 26, 2017 08:12
[2017-05-26] MEDS ORDERED: POTASSIUM CHLORIDE 10 MEQ CONTROLLED RELEASE TAB PO ONE (08:15)
[2017-05-26] MEDS ORDERED: MAGNESIUM SULFATE 1 GM PREMIX 100 ML IV ONE (08:15)
[2017-05-26] MEDS ORDERED: CALCIUM GLUCONATE INJ 1 GM in SODIUM CHLORIDE 0.9% INJ 100 ML IV ONE (08:30)
[2017-05-26] MEDS: DIAZEPAM 5 MG TAB PO SCH ×2 (08:30→20:07)
--- NOTE | 2017-05-26 11:10 | MP ---
cc: MARION DUMONT MD DATE OF SURGERY 05/25/2017 PREOPERATIVE DIAGNOSIS Aortoesophageal fistula status was massive bleed. POSTOPERATIVE DIAGNOSIS Aortoesophageal fistula status was massive bleed. OPERATIVE PROCEDURE Endovascular thoracic aortic stent placement with bilateral femoral access. INTERVENTIONAL RADIOLOGIST AND CO-SURGEON Dr. Machado VASCULAR SURGEON AND CO-SURGEON Marion Dumont MD ANESTHESIA 1% Xylocaine and MAC. ESTIMATED BLOOD LOSS About 100 cc INDICATION FOR THE PROCEDURE This is a 76-year-old lady who underwent lung cancer therapy for which she received radiation encompassing also the esophagus. She developed severe esophagitis and several strictures which were dilated and a stent was placed in the esophagus. At the time the stent was removed, the patient massively bled in another hospital, then was discharged in next day for some reason. Now the patient comes through the ER to us and she has a CT angio that confirmed aortoesophageal fistula hence the procedure. PROCEDURE The procedure was prepped and draped in the usual fashion. Both groins were accessed under ultrasound guidance with a microneedle and micro wire. Over that, the sheaths were placed and the Perclose device is placed on both sides. The left groin was used to introduce the gold catheter. First, a Glidewire is introduced and over the Glidewire the pigtail marking gold catheter was introduced. This was positioned in the thoracic aorta and arch and then angiogram was obtained. Now this was measured out and 28-mm x 150-mm aortic thoracic Endograft is chosen and now the right groin is attended. The Glidewire is now exchanged over the flush catheter for a Bruno wire and then over the Bruno wire, the Endograft is advanced bareback to the position and then deployed. Once the graft is nicely deployed, the pigtail gold catheter is placed into the graft and a final arteriogram obtained. The instruments were withdrawn. The Perclose were closed and the patient has excellent distal pulses. A dressing is applied. The patient taken out of the OR in stable condition. Marion MEDINA/TARUN /5:19 PM /10:58 AM
--- NOTE | 2017-05-26 12:28 | PD.CAR.PN ---
CVT Progress Note Subjective/Hospital Course: Status post thoracic aortic stent placement. Groins clean, dry, excellent blood flow Neurologic intact Patient spit up some blood, but this is purely from the esophagus being friable. The esophago-aortic fistula is covered now Patient can transfer to floor from my point Should be on antibiotics watermaster as per ID Objective: Vital Signs Date Time Temp Pulse Resp B/P (MAP) Pulse Ox O2 Delivery O2 Flow Rate FiO2 05/26/17 12:00 101 05/26/17 12:00 97.1 101 24 125/71 (89) 95 05/26/17 11:47 93 21 05/26/17 10:00 93 05/26/17 08:00 98.2 97 30 114/54 (74) 95 05/26/17 08:00 96 05/26/17 07:00 97 Nasal Cannula 2.00 05/26/17 06:00 92 05/26/17 04:00 96 05/26/17 04:00 97.5 96 27 112/53 (72) 96 05/26/17 04:00 97.5 96 27 112/53 (72) 05/26/17 02:00 100 05/26/17 00:00 97.1 96 30 110/54 (72) 99 05/26/17 00:00 97.1 96 30 110/54 (72) 05/26/17 00:00 96 05/25/17 22:00 94 05/25/17 20:00 97.0 92 25 139/63 (88) 99 05/25/17 20:00 97.0 92 25 139/63 (88) 05/25/17 20:00 92 05/25/17 19:14 87 20 146/65 (92) 05/25/17 19:00 98 Nasal Cannula 3.00 05/25/17 18:14 88 21 147/65 (92) 05/25/17 18:00 88 05/25/17 17:14 84 23 144/65 (91) 05/25/17 16:14 97.5 83 24 139/62 (87) 05/25/17 16:00 97.9 80 21 138/63 (88) 97 05/25/17 16:00 80 05/25/17 15:14 85 23 137/67 (90) 05/25/17 14:44 79 21 145/66 (92) 05/25/17 14:14 80 20 136/65 (88) 05/25/17 14:00 97.2 75 22 142/64 (90) 99 05/25/17 14:00 81 05/25/17 13:44 82 21 146/66 (92) 05/25/17 13:14 89 18 141/62 (88) 05/25/17 12:59 85 19 140/63 (88) 05/25/17 12:44 87 17 142/64 (90) 05/25/17 12:29 97.2 88 18 130/68 (88) Labs: Laboratory Tests Test 05/26/17 04:21 White Blood Count 8.0 TH/MM3 (4.0-11.0) Red Blood Count 2.65 MIL/MM3 (4.00-5.30) Hemoglobin 7.9 GM/DL (11.6-15.3) Hematocrit 23.7 % (35.0-46.0) Mean Corpuscular Volume 89.5 FL (80.0-100.0) Mean Corpuscular Hemoglobin 30.0 PG (27.0-34.0) Mean Corpuscular Hemoglobin Concent 33.5 % (32.0-36.0) Red Cell Distribution Width 14.8 % (11.6-17.2) Platelet Count 168 TH/MM3 (150-450) Mean Platelet Volume 9.6 FL (7.0-11.0) Neutrophils (%) (Auto) 71.3 % (16.0-70.0) Lymphocytes (%) (Auto) 14.7 % (9.0-44.0) Monocytes (%) (Auto) 10.4 % (0.0-8.0) Eosinophils (%) (Auto) 3.1 % (0.0-4.0) Basophils (%) (Auto) 0.5 % (0.0-2.0) Neutrophils # (Auto) 5.7 TH/MM3 (1.8-7.7) Lymphocytes # (Auto) 1.2 TH/MM3 (1.0-4.8) Monocytes # (Auto) 0.8 TH/MM3 (0-0.9) Eosinophils # (Auto) 0.2 TH/MM3 (0-0.4) Basophils # (Auto) 0.0 TH/MM3 (0-0.2) CBC Comment DIFF FINAL Differential Comment Blood Urea Nitrogen 15 MG/DL (7-18) Creatinine 0.52 MG/DL (0.50-1.00) Random Glucose 102 MG/DL (74-106) Total Protein 5.5 GM/DL (6.4-8.2) Albumin 2.2 GM/DL (3.4-5.0) Calcium Level 7.4 MG/DL (8.5-10.1) Phosphorus Level 2.8 MG/DL (2.5-4.9) Magnesium Level 1.9 MG/DL (1.5-2.5) Alkaline Phosphatase 180 U/L (45-117) Aspartate Amino Transf (AST/SGOT) 14 U/L (15-37) Alanine Aminotransferase (ALT/SGPT) 9 U/L (10-53) Total Bilirubin 0.5 MG/DL (0.2-1.0) Sodium Level 141 MEQ/L (136-145) Potassium Level 3.5 MEQ/L (3.5-5.1) Chloride Level 109 MEQ/L (98-107) Carbon Dioxide Level 24.7 MEQ/L (21.0-32.0) Anion Gap 7 MEQ/L (5-15) Estimat Glomerular Filtration Rate 114 ML/MIN (>89) Protein Corrected Calcium 8.3 MG/DL (8.5-10.1) Thyroid Stimulating Hormone 3rd Gen 2.810 uIU/ML (0.358-3.740) Result Diagram: 05/26/17 04205/26/17 0421 Marion Vasquez MD May 26, 2017 12:28
[2017-05-26] MEDS ORDERED: ENOXAPARIN SODIUM 40 MG/0.4 ML SYRINGE SQ SCH (18:00)
[2017-05-26] MEDS: AMITRIPTYLINE HCL 25 MG TAB PO SCH (20:07)
[2017-05-26] MEDS: PANTOPRAZOLE SODIUM 40 MG VIAL IV PUSH SCH (20:07)
[2017-05-27] VITALS (9 sets, daily range): BP systolic 103–146; BP diastolic 53–63; PULSE 92–104; RESP 18–26; TEMP 97.7–98.9; O2SAT 94–100
[2017-05-27] MEDS: ONDANSETRON HCL 4 MG/2 ML VIAL IV PUSH PRN ×2 (01:00→06:24)
[2017-05-27 04:43] LABS: MEAN CELL VOLUME 90.1 FL (80.0-100.0); MEAN CORPUSCULAR HGB CONC 33.3 % (32.0-36.0); MEAN PLATELET VOLUME 9.5 FL (7.0-11.0); PLATELET COUNT 159 TH/MM3 (150-450); RED BLOOD COUNT 2.01 MIL/MM3 (4.00-5.30); RED CELL DISTRIBUTION WIDTH 14.8 % (11.6-17.2); WHITE BLOOD COUNT 9.4 TH/MM3 (4.0-11.0)
[2017-05-27 04:53] LABS: HEMATOCRIT 18.1 % (35.0-46.0)
[2017-05-27 05:05] LABS: BICARBONATE 27.4 MEQ/L (21.0-32.0); CALCIUM 7.7 MG/DL (8.5-10.1); CREATININE 0.52 MG/DL (0.50-1.00)
[2017-05-27] MEDS: PIPERACIL-TAZO 3.375 GM PREMIX 50 ML IV SCH ×3 (06:47→20:42)
[2017-05-27] MEDS: LEVOTHYROXINE SODIUM 75 MCG TAB PO SCH (06:47)
--- NOTE | 2017-05-27 08:23 | PD.CAR.PN ---
CVT Progress Note Subjective/Hospital Course: Status post thoracic aortic stent placement. Groins clean, dry, excellent blood flow Neurologic intact Patient spit up some blood, but this is purely from the esophagus being friable. The esophago-aortic fistula is covered now Patient can transfer to floor from my point Should be on antibiotics intermediate accountant as per ID 05/27/17 Patient is awake alert and oriented She gradually dropped hemoglobin from 10 g/dL to 6 g/dL over 2 days Aortic stent is in position I do not suspect endoleak We'll check CTA of chest with IV contrast to assess the position of the stent I suspect the majority of hemoglobin drop is combination of bleeding from the esophagus which is very friable and hemodilution effect We'll watch carefully Addendum drop pit worker preformed and there is no endoleak whatsoever. This is bleeding from the esophagus and at this point I do not have any suggestion beyond conservative measures to contain this Maintenance of normal coagulation profile is mandatory and I believe this is going to stop on its own Patient appears to be much better after receiving 2 units of blood and remains hemodynamically stable Objective: Vital Signs Date Time Temp Pulse Resp B/P (MAP) Pulse Ox O2 Delivery O2 Flow Rate FiO2 05/27/17 05:24 98.7 99 26 117/56 96 05/27/17 04:00 97.8 100 22 111/57 (75) 94 05/27/17 04:00 97 05/27/17 00:00 97.7 96 20 146/53 (84) 96 05/27/17 00:00 96 05/26/17 22:00 106/52 (70) 05/26/17 22:00 104 05/26/17 20:00 104 05/26/17 20:00 100.3 104 20 91/47 (62) 99 05/26/17 20:00 98 Nasal Cannula 2.00 05/26/17 19:37 99 Nasal Cannula 2.00 05/26/17 16:00 97.5 98 23 152/62 (92) 94 05/26/17 16:00 97 05/26/17 14:00 91 05/26/17 12:00 101 05/26/17 12:00 97.1 101 24 125/71 (89) 95 05/26/17 11:47 93 21 05/26/17 10:00 93 Labs: Laboratory Tests Test 05/27/17 03:57 White Blood Count 9.4 TH/MM3 (4.0-11.0) Red Blood Count 2.01 MIL/MM3 (4.00-5.30) Hemoglobin 6.0 GM/DL (11.6-15.3) Hematocrit 18.1 % (35.0-46.0) Mean Corpuscular Volume 90.1 FL (80.0-100.0) Mean Corpuscular Hemoglobin 30.0 PG (27.0-34.0) Mean Corpuscular Hemoglobin Concent 33.3 % (32.0-36.0) Red Cell Distribution Width 14.8 % (11.6-17.2) Platelet Count 159 TH/MM3 (150-450) Mean Platelet Volume 9.5 FL (7.0-11.0) Blood Urea Nitrogen 22 MG/DL (7-18) Creatinine 0.52 MG/DL (0.50-1.00) Random Glucose 102 MG/DL (74-106) Calcium Level 7.7 MG/DL (8.5-10.1) Sodium Level 140 MEQ/L (136-145) Potassium Level 4.2 MEQ/L (3.5-5.1) Chloride Level 107 MEQ/L (98-107) Carbon Dioxide Level 27.4 MEQ/L (21.0-32.0) Anion Gap 6 MEQ/L (5-15) Estimat Glomerular Filtration Rate 114 ML/MIN (>89) Result Diagram: 05/27/17 0357 05/27/17 0357 Marion Vasquez MD May 27, 2017 08:23
[2017-05-27] MEDS: SODIUM CHLORIDE 0.9% FLUSH 10 ML FLUSH IV FLUSH SCH ×2 (09:00→20:32)
[2017-05-27] MEDS: DIAZEPAM 5 MG TAB PO SCH ×2 (09:00→20:42)
--- NOTE | 2017-05-27 09:00 | HHI.CCPN ---
Subjective Remarks/Hospital Course 76 year-old female with past medical history non-small cell lung cancer stage IIb discovered in May/Jun 2016 status post chemotherapy and 35 radiation treatments completed in August of 2016. She has had radiation esophagitis and recurrent stricture with recurrent food bolus impaction requiring numerous esophageal dilatation procedures (patient and her daughter estimate about 10) and esopahgeal stent 12/24/16. She states that on 05/18/17 that she was having hematemesis and went to [facility].She underwent removal of food foreign body and esophageal dilation by Dr. Monzon. Dr. Monzon states that upon second dilation he encountered a large amount of bleeding. He was able to tamponade and obtain hemostasis. Lindsay tube was inserted and she remained intubated overnight. Lindsya tube was removed the next day and she had no further bleeding and diet was advanced. Patients daughter (who is an RN) reports she received 2 units PRBC. She states that since discharge she "has been doing well" until she "spit up" about 1 teaspoon of bright red blood today (denies actual vomiting). She discussed with Drs. Monzon who recommended evaluation in the emergency department and workup for aortoesophageal fistula. CTA was performed and demonstrated outpouching of the proximal descending aorta concerning for small aortic esophageal fistula. Did not appear to be actively bleeding. Dr. Vasquez has been consulted and plans to proceed with endovascular aortic stent at 9 am on 05/25/16. Patient has not noted any additional bleeding since what occurred before 9 AM on 05/24. Hemoglobin is 10.3 (previously 12.8 on 04/25/17) Coags are normal. She has not been on antiplatelet or anticoagulant therapy. She is being admitted to [facility] per critical care medicine 05/25: Currently resting in bed in no acute distress. Currently with non- productive cough which she treats to "phlegm". No further hematemesis noted. Afebrile. Plan to IR today for stenting by Dr. Vasquez. Subjective 05/26: Afebrile. Status post placement of Thoraco-Aesophageal stent 28 x 28 x [address] Tej Machado/Christina yesterday successfully. Tolerating diet. No further hemoptysis/bleeding identified. Currently on 2 L nasal cannula. 05/27: afebrile. hgb dropped to 6.0 from 7.9 yesterday. received 2 units prbc early this AM. still tachycardic, feels fatigued subjectively. just had large melanotic stool. pallor is significant. denies abdominal pain or hematemesis. Objective Vital Signs Date Time Temp Pulse Resp B/P (MAP) Pulse Ox O2 Delivery O2 Flow Rate FiO2 05/27/17 05:24 98.7 99 26 117/56 96 05/26/17 20:00 Nasal Cannula 2.00 05/26/17 11:47 21 Intake and Output 05/27/17 05/27/17 05/28/17 08:00 16:00 00:00 Intake Total 1400 ml Balance 1400 ml Result Diagram: 05/27/17 0357 05/27/17 0357 Other Results Microbiology Date/Time Source Procedure Growth Status 05/24/17 13:20 Urine Random Urine Urine Culture - Final 10-50,000 CFU/ML MIXED AVA... Complete Imaging Last Impressions Aneurysm Repair 05/25/17 0000 Signed Impressions: Service Date/Time: Thursday, May 25, 2017 10:51 - CONCLUSION: 1. 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 Clifford Machado MD Chest X-Ray 05/24/17 0000 Signed Impressions: Service Date/Time: Wednesday, May 24, 2017 14:56 - CONCLUSION: Interval removal of chest port and esophageal stent. No definite acute findings. Og Joya MD Aorta CTA 05/24/17 0000 Signed Impressions: Service Date/Time: Wednesday, May 24, 2017 15:38 - CONCLUSION: 1. The examination demonstrates a small outpouching of the proximal portion of the descending thoracic aorta. This extends up to and partially projects into a thickened, grossly abnormal appearing segment of the esophagus. 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 This does not appear actively bleeding at this time. 2. Results were called to Dr. yarbrough in the ED. Clifford Machado MD Objective Remarks GENERAL: elderly female lying in bed in mild distress. SKIN: warm, pale. HEAD: Atraumatic. Normocephalic. EYES: perrl. pale sclerae/conjunctiva. ENT: No nasal bleeding or discharge. Mucous membranes pale. Upper dentures in place. NECK: Trachea midline. No JVD. CARDIOVASCULAR: tachycardic rate, regular rhythm. sinus by tele. RESPIRATORY: equal chest rise. NC o2. GASTROINTESTINAL: Abdomen soft, non-tender, nondistended. Well-healed vertical incision, supra umbilical. MUSCULOSKELETAL: Extremities without edema. No obvious deformities. warm NEUROLOGICAL: Awake and alert. RASS 0. CAM - . 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 now with ongoing bleeding and acute blood loss anemia requiring transfusion. agree with 2 units prbc and serial hgb monitoring. agree with repeat stat Aortogram to rule out endoleak. Agree with GI consult for scoping since she has ongoing GI bleeding and likely additional tissue breakdown from esophageal portion of the fistula. Very high risk and will need to remain in ICU. NEURO/PSYCH: Anxiety Ofirmev 1 g IV every 8 hours when necessary fever/pain 1-2 Oxycodone 5 mg as needed for pain 3 through 5 (has taken at home before) Morphine sulfate 2 g IV every 3 hours as needed pain 6-10 Home dose clorazepate 3.75 milligrams by mouth 3 times a day was converted to diazepam 5 mg by mouth every 12 hours Continue amitriptyline 25 mg by mouth daily at bedtime RESP: Nasal cannula to maintain saturations greater than equal to 92% currently on 2 L Incentive spirometry every hour awake CV: History of hypertension History of dyslipidemia Monitor hemodynamics Currently normal saline with potassium chloride 84 cc an hour. We'll discontinue today Previous history of hypertension but not has not been on antihypertensives since losing significant weight. Radius history of hyperlipidemia but has been off statins since radiation therapy GI: Aorta esophageal fistula - status post thoraco esophageal stent 28 x [address] Machado/Christina Dysphagia secondary to Radiation esophagitis, esophageal stricture s/p multiple multiple dilation procedures, s/p esophageal stent 12/2016. Hypoalbuminemia Elevated alkaline phosphatase initial CTA aorta - focal outpouching the distal arch and the descending thoracic aorta. Likely small esophageal fistula. Prior history of PEG placement with subsequent dislodgement, infection and fistula which has subsequently healed. Status post thoracoesophageal stent placement as above On dexlansoprazole 30 milligrams po daily as outpatient or gastroesophageal reflux disease . increase to BID IV PPI given concern for GI bleeding. repeat CT aortogram. Advance diet per surgery RENAL: Monitor intake and output. Accurate I's and O's daily bmp ID: Bacteriuria Follow up urine culture 05/24 immature growth. 05/25 blood culture. No growth today On piperacillin/tazobactam 3.375 g IV every 8 hours and vancomycin 1 g every 12 hours times [address] Vasquez due to aortic esophageal fistula Any follow-up/home antibiotics per vascular surgery HEME/ONC: Non-small cell lung cancer stage IIIB status post concurrent chemotherapy and radiation completed August/2017. Dr. Montiel is her oncologist. Radiation oncologist is Dr. Hernandez Acute blood loss anemia - normocytic normochromic- active and worsening. Hemoglobin is 10.3. She has not clinically noted any additional bleeding and is currently hemodynamically stable. Check CBC in a.m. Coags are normal . Platelet count. She has not been on any anticoagulant or antiplatelet therapy transfuse 2 units prbc. trend serial h&h ENDO: Hypothyroidism Continue Synthroid 75 g by mouth daily Check TSH - 2.81 Sliding scale insulin case before meals/at bedtime to maintain euglycemia/24 hours discontinued. Glycemic OPHTHO: Macular degeneration Followed by ophthalmology outpatient PRESTIDIGITATOR: HRT: Continue estradiol patch are 0.1 milligrams every 24 hours/weekly replaced FEN: Hypocalcemia Continue multivitamin 1 tab by mouth daily Replace electrolytes as clinically indicated per ICU electrolyte protocol PROPH: SCDs for DVT prophylaxis. Pharmacologic DVT prophylaxis contraindicated due to concern for hemorrhage from aortoesophageal fistula. Pantoprazole 40 mg IV BID ACCESS: Peripheral IV providing at this time. She previously had a port that was previously removed due to coag negative staph bacteremia. Carlton Warren MD May 27, 2017 09:00
[2017-05-27 09:11] LABS: HEMATOCRIT 28.7 % (35.0-46.0); HEMOGLOBIN 9.9 GM/DL (11.6-15.3)
[2017-05-27] MEDS ORDERED: IOHEXOL 350 MG/ML 10 ML VIAL (for RAD DIAG) IVCONTRAST ONE ×2 (10:03→10:09)
--- NOTE | 2017-05-27 10:38 | RADRPT ---
EXAM DATE/TIME: 05/27/2017 09:31 [place] COMPARISON: CTA THORACIC ABDOMINAL AORTA W 3D RECON, May 24, 2017, 15:38. INDICATIONS : Evalulate stent placement. IV CONTRAST: 75 cc Omnipaque 350 (iohexol) IV RADIATION DOSE: 14.09 CTDIvol (mGy) MEDICAL HISTORY : Hypertension. Carcinoma, lung. SURGICAL HISTORY : Hysterectomy. ENCOUNTER: Initial ACUITY: 1 day PAIN SCALE: 0/10 LOCATION: chest TECHNIQUE: Volumetric scanning was performed using a multi-row detector CT scanner. The data was post processed with a variety of visualization algorithms including full volume maximum intensity projection, multi -planar sliding thin slab reformation, curved planar reformation, and surface rendering techniques. Using automated exposure control and adjustment of the mA and/or kV according to patient size, radiat ion dose was kept as low as reasonably achievable to obtain optimal diagnostic quality images. DICOM format image data is available electronically for review and comparison. FINDINGS: LUNGS: Mild interstitial fibrotic changes are again noted. Slight interval increase in left pleural effusion and interval development of small right effusion. Mild stable pleural thickening or subpleural fluid in the posterior left apex. MEDIASTINUM: Diffuse esophageal thickening and dilatation. Mild right hilar gladys enlargement which is nonspecific . No evidence of mediastinal hematoma. Thoracic endograft is in good position with no evidence of amena k. Medial outpouching in the proximal descending region is no longer seen. Preservation of flow in th e left subclavian artery. ABDOMEN: Mild gallbladder wall thickening. Liver, spleen, pancreas, right kidney and right adrenal gland are u nremarkable. Stable nodular mass involving the apex of the left adrenal gland. Partially exophytic cy st arising from the lateral lower pole cortex of the left kidney. PELVIS: Distal colonic diverticulosis. No abnormal dilatation of bowel. No free fluid, mass or adenopathy. Ut erus is surgically absent. Urinary bladder is unremarkable THORACIC AORTA: Interval thoracic endograft placement with satisfactory appearance. ABDOMINAL AORTA: Stable with mild atherosclerotic changes. No evidence of aneurysm or dissection. Visceral vessels are intact. PELVIC VESSELS: The internal iliac and external iliac vessels are patent without aneurysm or stenosis. CONCLUSION: Satisfactory vascular appearance post interval thoracic endograft repair. Interval development of small bilateral pleural effusions. Og Joya MD on May 27, 2017 at 10:29 Board Certified Radiologist. This report was verified electronically.
[2017-05-27] MEDS ORDERED: LIDOCAINE HCL 1% PF 5 ML SYRINGE OTHER ONE (12:00)
[2017-05-27] MEDS ORDERED: PROPOFOL 200 MG/20 ML AMP IV ONE (12:00)
--- NOTE | 2017-05-27 13:40 | PD.CONS ---
HPI History of Present Illness This is a 76 year old female admitted to the hospital on 05/24/17. patient has significant history of esophagitis with strictures post radiation from non- small cell lung cancer stage IIb diagnosed in June 2016 she did receive an esophageal stent on 12/24/16. Patient was reevaluated and treated in the [facility] on 05/18/[address] Monzon is familiar with her case and performed esophageal dilatation and removal of food foreign body. Procedure was complicated with bleeding stabilized with tamponade and transfusions. CTA was performed for proximal descending aorta esophageal fistula and stent on 05/25/16. On 05/27/17 hemoglobin was noted to be 6. Without obvious bleeding the patient continues with symptoms of nausea and melena stools. GI has been reconsult it for evaluation of EGD and observation of any active bleeding. Patient is pale, weak, but answers simple questions. No abdominal pain, currently NPO today except for sips of water with meds. (Jacki Szymanski) PFSH Past Medical History Per the record Anxiety Lung cancer to June 2016 with chemotherapy and radiation Hyperlipidemia, increased triglycerides Esophageal stricture Hematemesis Hypertension Thyroid disease Aorto esophageal fistula Past Surgical History Multiple EGDs Recent aorta esophageal stent Peg tube and removal Lymph node removal Chest port for chemotherapy and radiation Tonsillectomy esophageal dilatations G-tube with reversal (Jacki Szymanski) Coded Allergies: Sulfa (Sulfonamide Antibiotics) (Verified Allergy, Severe, SWELLING, ) Medications Administered Medications Medications (Trade) Dose Ordered Sig/Alla Route PRN Reason Start Time Stop Time Status Last Admin Dose Admin Sodium Chloride (NS Flush) 2 ml BID IV FLUSH 05/24/17 21:00 05/27/17 09:00 Ondansetron HCl (Zofran Inj) 4 mg Q6H PRN IV PUSH NAUSEA OR VOMITING 05/24/17 20:00 05/27/17 06:24 Diazepam (Valium) 5 mg Q12HR PO 05/24/17 21:00 05/26/17 20:07 Piperacillin Sod/ Tazobactam Sod 50 ml @ 100 mls/hr Q8H IV 05/24/17 21:00 05/27/17 12:03 Amitriptyline HCl (Elavil) 25 mg HS PO 05/24/17 21:00 05/26/17 20:07 Levothyroxine Sodium (Synthroid) 75 mcg DAILY@0600 PO 05/25/17 06:00 05/27/17 06:47 Oxycodone HCl (Roxicodone) 5 mg Q4H PRN PO PAIN 3 TO 5 05/24/17 20:15 05/26/17 07:15 Potassium Bicarb/ Potassium Chloride (K-Lyte Cl Eff) 50 meq UNSCH PRN PO For Potassium 3.3 - 3.5 mEq/L 05/24/17 22:30 05/26/17 08:30 Family History Patient's daughter is with her Social History Occasional alcohol use before her illness ECG (Jacki Szymanski) Review of Systems Constitutional: COMPLAINS OF: Fatigue Ears, nose, mouth, throat: COMPLAINS OF: Hoarseness (mild) Gastrointestinal: COMPLAINS OF: Black stools, Bloody stools, Nausea, Hematemesis (Jacki Szymanski) GI Exam Vitals I&O Vital Signs Date Time Temp Pulse Resp B/P (MAP) Pulse Ox O2 Delivery O2 Flow Rate FiO2 05/27/17 13:04 99 Nasal Cannula 2.00 05/27/17 12:00 101 05/27/17 12:00 98.4 101 26 122/56 (78) 100 05/27/17 08:00 97.8 92 26 137/63 (87) 100 05/27/17 08:00 98 Nasal Cannula 2.00 05/27/17 08:00 92 05/27/17 05:24 98.7 99 26 117/56 96 05/27/17 04:00 97.8 100 22 111/57 (75) 94 05/27/17 04:00 97 05/27/17 00:00 97.7 96 20 146/53 (84) 96 05/27/17 00:00 96 05/26/17 22:00 106/52 (70) 05/26/17 22:00 104 05/26/17 20:00 104 05/26/17 20:00 100.3 104 20 91/47 (62) 99 05/26/17 20:00 98 Nasal Cannula 2.00 05/26/17 19:37 99 Nasal Cannula 2.00 05/26/17 16:00 97.5 98 23 152/62 (92) 94 05/26/17 16:00 97 05/26/17 14:00 91 I/O 05/26/17 05/26/17 05/26/17 05/27/17 05/27/17 05/27/17 07:00 15:00 23:00 07:00 15:00 23:00 Intake Total 1629 ml 1424 ml 450 ml 1000 ml 400 ml Output Total 1300 ml Balance 329 ml 1424 ml 450 ml 1000 ml 400 ml Intake Oral 500 ml 450 ml IV Total 1129 ml 1424 ml 100 ml Packed Cells 900 ml 400 ml Output Urine Total 1300 ml # Voids 4 # Bowel Movements 0 2 Imaging Last Impressions Aorta CTA 05/27/17 0000 Signed Impressions: Service Date/Time: Saturday, May 27, 2017 09:31 - CONCLUSION: Satisfactory vascular appearance post interval thoracic endograft repair. Interval development of small bilateral pleural effusions. Og Joya MD Aneurysm Repair 05/25/17 0000 Signed Impressions: Service Date/Time: Thursday, May 25, 2017 10:51 - CONCLUSION: 1. 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 Clifford Machado MD Chest X-Ray 05/24/17 0000 Signed Impressions: Service Date/Time: Wednesday, May 24, 2017 14:56 - CONCLUSION: Interval removal of chest port and esophageal stent. No definite acute findings. Og Joya MD Laboratory Test 05/27/17 03:57 05/27/17 09:00 White Blood Count 9.4 TH/MM3 Red Blood Count 2.01 MIL/MM3 Hemoglobin 6.0 GM/DL 9.9 GM/DL Hematocrit 18.1 % 28.7 % Mean Corpuscular Volume 90.1 FL Mean Corpuscular Hemoglobin 30.0 PG Mean Corpuscular Hemoglobin Concent 33.3 % Red Cell Distribution Width 14.8 % Platelet Count 159 TH/MM3 Mean Platelet Volume 9.5 FL Blood Urea Nitrogen 22 MG/DL Creatinine 0.52 MG/DL Random Glucose 102 MG/DL Calcium Level 7.7 MG/DL Sodium Level 140 MEQ/L Potassium Level 4.2 MEQ/L Chloride Level 107 MEQ/L Carbon Dioxide Level 27.4 MEQ/L Anion Gap 6 MEQ/L Estimat Glomerular Filtration Rate 114 ML/MIN Date/Time Source Procedure Growth Status 05/25/17 00:35 Blood Peripheral Aerobic Blood Culture - Preliminary NO GROWTH IN 2 DAYS Resulted 05/25/17 00:35 Blood Peripheral Anaerobic Blood Culture - Preliminary NO GROWTH IN 2 DAYS Resulted 05/24/17 13:20 Urine Random Urine Urine Culture - Final 10-50,000 CFU/ML MIXED AVA... Complete Physical Examination HEENT: Pupils round and reactive to light; normocephalic; atraumatic; pale, mild hoarseness noted NECK: Neck is supple, and CHEST: Chest O active rhonchi or wheezing CARDIAC: Regular rate and rhythm ABDOMEN: Soft, nondistended, nontender; no hepatosplenomegaly; bowel sounds very soft EXTREMITIES: No clubbing, cyanosis, or edema. SKIN: Pale no rash; no jaundice. CERTIFIED EXECUTIVE CHEF: No focal deficits; alert and oriented times three., Anxious (Jacki Szymanski) Assessment and Plan Assessment: (1) Blood loss anemia ICD Codes: D50.0 - Iron deficiency anemia secondary to blood loss (chronic) (2) Dysphagia ICD Codes: R13.10 - Dysphagia, unspecified Status: Acute (3) Hematemesis ICD Codes: K92.0 - Hematemesis Status: Acute (4) Esophageal stricture ICD Codes: K22.2 - Esophageal obstruction Status: Acute (5) Normocytic anemia ICD Codes: D64.9 - Anemia, unspecified Status: Acute Plan Patient had significant hemoglobin drop from 7.9-6., Received 2 unit transfusion today, had a large melena stool, remains weak and pale. Patient has symptoms of nausea but no vomiting no diarrhea no constipation no abdominal pain. Plan Consent for EGD, GI lab notified Nothing by mouth with minimal sip of water with meds Monitor labs and recheck CBC in the morning Call for any acute GI bleed Further procedures and plan a care will be based on symptoms. Patient was seen by myself and Dr. Monzon, note written on his behalf (Jacki Szymanski) Physician Comments Patient seen and examined Agree with above Continue with current supportive care Monitor labs EGD today (Sal Monzon MD) Problem Qualifiers (1) Hematemesis: Qualified Codes: K92.0 - Hematemesis Jacki Szymanski May 27, 2017 13:40 Sal Monzon MD May 27, 2017 16:51
[2017-05-27] MEDS ORDERED: DO NOT ADM ANY ANTICOAGULANT DRUGS PRN (16:38)
--- NOTE | 2017-05-27 16:50 | PD.PROCEDR ---
GI Procedure PROCEDURE PERFORMED EGD INDICATION FOR PROCEDURE Upper GI bleed PROCEDURE: The procedure, risks and benefits were discussed with Ms. Valdovinos and informed consent was obtained. Anesthesia sedated her with Diprivan. She was placed in the left lateral decubitus position. EGD: The Pentax videoscope was introduced through the oropharynx and advanced to the second portion of the duodenum under direct visualization. Retroflexion was performed in the stomach. FINDINGS: The esophagus the esophageal mucosa appeared to be very friable and inflamed ulcerated there was a red spot in the upper esophagus I would presume this would correlate with the known aorta esophageal fistula location no active bleeding at this point but certainly this would be a reason for a recent bleed it was a wide area no therapy was applied at this point but certainly would consider a covered esophageal stent if there is any active bleeding or a Lindsay tube to help apply pressure The stomach there was a small hiatal hernia otherwise unremarkable the examination of the stomach was limited due to a large clot covering a portion of the stomach The duodenum and this was unremarkable with normal limits ESTIMATED BLOOD LOSS: None SPECIMENS REMOVED: None COMPLICATIONS: None IMPRESSION: Severe ulcerated esophagitis with an esophageal ulcer and stigmata of recent bleed Small hiatal hernia PLAN: Supportive care Monitor vital signs and labs and transfuse as needed We'll switch to a Protonix drip We'll consider Lindsay tube placement if there is any active bleeding We'll also consider a covered esophageal stent as a way to help with the healing Sal Monzon MD May 27, 2017 16:50
[2017-05-27 18:44] LABS: HEMATOCRIT 26.7 % (35.0-46.0); HEMOGLOBIN 9.2 GM/DL (11.6-15.3)
[2017-05-27] MEDS: PANTOPRAZOLE INJ 80 MG in SODIUM CHLORIDE 0.9% INJ 100 ML IV SCH (19:18)
[2017-05-27] MEDS ORDERED: PANTOPRAZOLE SODIUM 40 MG VIAL IV PUSH SCH (20:00)
[2017-05-27] MEDS: AMITRIPTYLINE HCL 25 MG TAB PO SCH (20:42)
[2017-05-28] VITALS (12 sets, daily range): BP systolic 115–139; BP diastolic 53–65; PULSE 70–97; RESP 18–26; TEMP 98–98.8; O2SAT 94–99
[2017-05-28 05:26] LABS: HEMATOCRIT 21.9 % (35.0-46.0); HEMOGLOBIN 7.4 GM/DL (11.6-15.3)
[2017-05-28] MEDS: LEVOTHYROXINE SODIUM 75 MCG TAB PO SCH (06:09)
[2017-05-28] MEDS: PIPERACIL-TAZO 3.375 GM PREMIX 50 ML IV SCH ×3 (06:09→21:08)
[2017-05-28] MEDS: PANTOPRAZOLE INJ 80 MG in SODIUM CHLORIDE 0.9% INJ 100 ML IV SCH ×2 (06:39→21:08)
--- NOTE | 2017-05-28 07:09 | HHI.CCPN ---
Subjective Remarks/Hospital Course 76 year-old female with past medical history non-small cell lung cancer stage IIb discovered in May/Jun 2016 status post chemotherapy and 35 radiation treatments completed in August of 2016. She has had radiation esophagitis and recurrent stricture with recurrent food bolus impaction requiring numerous esophageal dilatation procedures (patient and her daughter estimate about 10) and esopahgeal stent 12/24/16. She states that on 05/18/17 that she was having hematemesis and went to [facility] [place].She underwent removal of food foreign body and esophageal dilation by Dr. Monzon. Dr. Monzon states that upon second dilation he encountered a large amount of bleeding. He was able to tamponade and obtain hemostasis. Lindsay tube was inserted and she remained intubated overnight. Lindsay tube was removed the next day and she had no further bleeding and diet was advanced. Patients daughter (who is an RN) reports she received 2 units PRBC. She states that since discharge she "has been doing well" until she "spit up" about 1 teaspoon of bright red blood today (denies actual vomiting). She discussed with Drs. Monzon who recommended evaluation in the emergency department and workup for aortoesophageal fistula. CTA was performed and demonstrated outpouching of the proximal descending aorta concerning for small aortic esophageal fistula. Did not appear to be actively bleeding. Dr. Vasquez has been consulted and plans to proceed with endovascular aortic stent at 9 am on 05/25/16. Patient has not noted any additional bleeding since what occurred before 9 AM on 05/24. Hemoglobin is 10.3 (previously 12.8 on 04/25/17) Coags are normal. She has not been on antiplatelet or anticoagulant therapy. She is being admitted to [facility] per critical care medicine 05/25: Currently resting in bed in no acute distress. Currently with non- productive cough which she treats to "phlegm". No further hematemesis noted. Afebrile. Plan to IR today for stenting by Dr. Vasquez. Subjective 05/26: Afebrile. Status post placement of Thoraco-Aesophageal stent 28 x 28 x [address] Tej Machado/Christina yesterday successfully. Tolerating diet. No further hemoptysis/bleeding identified. Currently on 2 L nasal cannula. 05/27: afebrile. hgb dropped to 6.0 from 7.9 yesterday. received 2 units prbc early this AM. still tachycardic, feels fatigued subjectively. just had large melanotic stool. pallor is significant. denies abdominal pain or hematemesis. 05/28: Additional melanotic stools and Hgb decline of nearly 2 grams. Normotensive. Will transfuse 1 unit rbcs and follow closely. Objective Vital Signs Date Time Temp Pulse Resp B/P (MAP) Pulse Ox O2 Delivery O2 Flow Rate FiO2 05/28/17 06:00 88 05/28/17 04:00 98.0 26 125/59 (81) 96 05/27/17 19:27 Nasal Cannula 2.00 05/26/17 11:47 21 Intake and Output 05/28/17 05/28/17 05/29/17 08:00 16:00 00:00 Intake Total 280 ml Balance 280 ml Result Diagram: 05/28/17 0428 05/27/17 0357 Imaging Last Impressions Aneurysm Repair 05/25/17 0000 Signed Impressions: Service Date/Time: Thursday, May 25, 2017 10:51 - CONCLUSION: 1. 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 Clifford Machado MD Chest X-Ray 05/24/17 0000 Signed Impressions: Service Date/Time: Wednesday, May 24, 2017 14:56 - CONCLUSION: Interval removal of chest port and esophageal stent. No definite acute findings. Og Joya MD Aorta CTA 05/24/17 0000 Signed Impressions: Service Date/Time: Wednesday, May 24, 2017 15:38 - CONCLUSION: 1. The examination demonstrates a small outpouching of the proximal portion of the descending thoracic aorta. This extends up to and partially projects into a thickened, grossly abnormal appearing segment of the esophagus. 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 This does not appear actively bleeding at this time. 2. Results were called to Dr. yarbrough in the ED. Clifford Machado MD Objective Remarks GENERAL: elderly female. SKIN: Warm, remains pale. HEAD: Atraumatic. Normocephalic. ENT: No nasal bleeding or discharge. Mucous membranes pale. Upper dentures in place. NECK: Trachea midline. Airway widely patent. CARDIOVASCULAR: Normal rate 80s, regular rhythm. sinus by tele. No JVD. RESPIRATORY: Clear, good rhonda air movement. GASTROINTESTINAL: Abdomen soft, non-tender, nondistended. Well-healed vertical incision, supra umbilical. BS active. MUSCULOSKELETAL: Extremities without edema. No obvious deformities, warm, well perfused. NEUROLOGICAL: Awake and alert. Conversant. 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 now with ongoing bleeding and acute blood loss anemia requiring transfusion. agree with 2 units prbc and serial hgb monitoring. agree with repeat stat Aortogram to rule out endoleak. Agree with GI consult for scoping since she has ongoing GI bleeding and likely additional tissue breakdown from esophageal portion of the fistula. NEURO/PSYCH: Anxiety Ofirmev 1 g IV every 8 hours when necessary fever/pain 1-2 Oxycodone 5 mg as needed for pain 3 through 5 (has taken at home before) Morphine sulfate 2 g IV every 3 hours as needed pain 6-10 Home dose clorazepate 3.75 milligrams by mouth 3 times a day was converted to diazepam 5 mg by mouth every 12 hours Continue amitriptyline 25 mg by mouth daily at bedtime RESP: Nasal cannula to maintain saturations greater than equal to 92% currently on 2 L Incentive spirometry every hour while awake CV: History of hypertension History of dyslipidemia Monitor hemodynamics Currently normal saline with potassium chloride 84 cc an hour. We'll discontinue today Previous history of hypertension but not has not been on antihypertensives since losing significant weight. Radius history of hyperlipidemia but has been off statins since radiation therapy GI: Aorta esophageal fistula - status post thoraco esophageal stent 28 x [address] Machado/Christina Dysphagia secondary to Radiation esophagitis, esophageal stricture s/p multiple multiple dilation procedures, s/p esophageal stent 12/2016. Hypoalbuminemia Elevated alkaline phosphatase initial CTA aorta - focal outpouching the distal arch and the descending thoracic aorta. Likely small esophageal fistula. Prior history of PEG placement with subsequent dislodgement, infection and fistula which has subsequently healed. Status post thoracoesophageal stent placement as above On dexlansoprazole 30 milligrams po daily as outpatient or gastroesophageal reflux disease . increase to BID IV PPI given concern for GI bleeding. repeat CT aortogram. Advance diet per surgery RENAL: Monitor intake and output. Accurate I's and O's daily bmp ID: Bacteriuria Follow up urine culture 05/24 immature growth. 05/25 blood culture. No growth today On piperacillin/tazobactam 3.375 g IV every 8 hours and vancomycin 1 g every 12 hours times [address] Vasquez due to aortic esophageal fistula Any follow-up/home antibiotics per vascular surgery HEME/ONC: Non-small cell lung cancer stage IIIB status post concurrent chemotherapy and radiation completed August/2017. Dr. Montiel is her oncologist. Radiation oncologist is Dr. Hernandez Acute blood loss anemia - normocytic normochromic- active and worsening. Hemoglobin is 10.3. She has not clinically noted any additional bleeding and is currently hemodynamically stable. Check CBC in a.m. Coags are normal . Platelet count. She has not been on any anticoagulant or antiplatelet therapy transfuse 2 units prbc. trend serial h&h transfuse 1 unit 05/28. ENDO: Hypothyroidism Continue Synthroid 75 g by mouth daily Check TSH - 2.81 Sliding scale insulin case before meals/at bedtime to maintain euglycemia/24 hours discontinued. Glycemic OPHTHO: Macular degeneration Followed by ophthalmology outpatient SCABBLER: HRT: Continue estradiol patch are 0.1 milligrams every 24 hours/weekly replaced FEN: Hypocalcemia Continue multivitamin 1 tab by mouth daily Replace electrolytes as clinically indicated per ICU electrolyte protocol PROPH: SCDs for DVT prophylaxis. Pharmacologic DVT prophylaxis contraindicated due to concern for hemorrhage from aortoesophageal fistula. Pantoprazole 40 mg IV BID ACCESS: Peripheral IV providing at this time. She previously had a port that was previously removed due to coag negative staph bacteremia. Overall impression: Hgb decline not surprising necessarily. Follow closely. Erik Montoya MD May 28, 2017 07:08
[2017-05-28] MEDS: DIAZEPAM 5 MG TAB PO SCH ×2 (08:39→21:00)
[2017-05-28] MEDS: SODIUM CHLORIDE 0.9% FLUSH 10 ML FLUSH IV FLUSH SCH ×2 (08:40→21:00)
--- NOTE | 2017-05-28 14:41 | PD.CAR.PN ---
CVT Progress Note Subjective/Hospital Course: Status post thoracic aortic stent placement. Groins clean, dry, excellent blood flow Neurologic intact Patient spit up some blood, but this is purely from the esophagus being friable. The esophago-aortic fistula is covered now Patient can transfer to floor from my point Should be on antibiotics rn long term care as per ID 05/27/17 Patient is awake alert and oriented She gradually dropped hemoglobin from 10 g/dL to 6 g/dL over 2 days Aortic stent is in position I do not suspect endoleak We'll check CTA of chest with IV contrast to assess the position of the stent I suspect the majority of hemoglobin drop is combination of bleeding from the esophagus which is very friable and hemodilution effect We'll watch carefully Addendum electronic specialist preformed and there is no endoleak whatsoever. This is bleeding from the esophagus and at this point I do not have any suggestion beyond conservative measures to contain this Maintenance of normal coagulation profile is mandatory and I believe this is going to stop on its own Patient appears to be much better after receiving 2 units of blood and remains hemodynamically stable 05/28/17 Patient doing okay at this time And another small drop of hemoglobin was transfuse one more unit PRBC by Dr. Parr Fully agree with excellent management patient has received Spoke to Dr. Manley and regarding the EGD, which revealed a sizable ulcer on the esophageal side of the esophago-aortic fistula. This is not surprising considering the bleeding and repeated dilatations patient had to undergo At this point would allow this to heal without to much further manipulation As above noted aortic stent is in nice position without any endoleak Patient should remain in the long-term antibiotics Objective: Vital Signs Date Time Temp Pulse Resp B/P (MAP) Pulse Ox O2 Delivery O2 Flow Rate FiO2 05/28/17 12:00 97 05/28/17 11:23 98.8 87 23 131/58 96 05/28/17 08:00 98.4 86 24 115/53 (73) 99 05/28/17 08:00 86 05/28/17 07:00 100 Nasal Cannula 2.00 05/28/17 06:00 88 05/28/17 04:00 88 05/28/17 04:00 98.0 88 26 125/59 (81) 96 05/28/17 00:00 98.0 91 22 127/60 (82) 97 05/28/17 00:00 91 05/27/17 20:00 98 05/27/17 20:00 97.9 98 18 117/56 (76) 99 05/27/17 19:27 98 Nasal Cannula 2.00 05/27/17 19:00 Nasal Cannula 2.00 05/27/17 18:24 104 05/27/17 18:24 98.9 104 26 103/55 (71) 100 05/27/17 17:15 98 16 126/57 (80) 94 Nasal Cannula 2 05/27/17 17:00 97 22 120/57 (78) 94 Nasal Cannula 2 05/27/17 16:45 96 24 120/56 (77) 94 Nasal Cannula 2 05/27/17 16:42 98.4 96 24 108/54 (72) 94 Nasal Cannula 2 Labs: Laboratory Tests Test 05/28/17 04:28 Hemoglobin 7.4 GM/DL (11.6-15.3) Hematocrit 21.9 % (35.0-46.0) Result Diagram: 05/28/17 0428 05/27/17 0357 Marion Vasquez MD May 28, 2017 14:41
--- NOTE | 2017-05-28 15:46 | HHI.GIFU ---
Subjective Remarks Patient accompanied by daughter, still passing back stools, possible old blood. Received one unit of blood today. Not having nausea or vomiting (Tommie Pino) Objective Vitals I&O Vital Signs Date Time Temp Pulse Resp B/P (MAP) Pulse Ox O2 Delivery O2 Flow Rate FiO2 05/28/17 12:00 97 05/28/17 11:23 98.8 87 23 131/58 96 05/28/17 08:00 98.4 86 24 115/53 (73) 99 05/28/17 08:00 86 05/28/17 07:00 100 Nasal Cannula 2.00 05/28/17 06:00 88 05/28/17 04:00 88 05/28/17 04:00 98.0 88 26 125/59 (81) 96 05/28/17 00:00 98.0 91 22 127/60 (82) 97 05/28/17 00:00 91 05/27/17 20:00 98 05/27/17 20:00 97.9 98 18 117/56 (76) 99 05/27/17 19:27 98 Nasal Cannula 2.00 05/27/17 19:00 Nasal Cannula 2.00 05/27/17 18:24 104 05/27/17 18:24 98.9 104 26 103/55 (71) 100 05/27/17 17:15 98 16 126/57 (80) 94 Nasal Cannula 2 05/27/17 17:00 97 22 120/57 (78) 94 Nasal Cannula 2 05/27/17 16:45 96 24 120/56 (77) 94 Nasal Cannula 2 05/27/17 16:42 98.4 96 24 108/54 (72) 94 Nasal Cannula 2 I/O 05/27/17 05/27/17 05/27/17 05/28/17 05/28/17 05/28/17 07:00 15:00 23:00 07:00 15:00 23:00 Intake Total 1000 ml 400 ml 370 ml 280 ml 250 ml Output Total 600 ml Balance 1000 ml 400 ml -230 ml 280 ml 250 ml Intake Oral 120 ml 120 ml IV Total 100 ml 50 ml 160 ml Packed Cells 900 ml 400 ml Blood Product IV Normal Saline Flush 250 ml Other 200 ml Output Urine Total 600 ml # Voids 2 3 # Bowel Movements 2 2 Laboratory Laboratory Tests Test 05/27/17 18:10 05/28/17 04:28 Hemoglobin 9.2 7.4 Hematocrit 26.7 21.9 Date/Time Source Procedure Growth Status 05/25/17 00:35 Blood Peripheral Aerobic Blood Culture - Preliminary NO GROWTH IN 3 DAYS Resulted 05/25/17 00:35 Blood Peripheral Anaerobic Blood Culture - Preliminary NO GROWTH IN 3 DAYS Resulted 05/24/17 13:20 Urine Random Urine Urine Culture - Final 10-50,000 CFU/ML MIXED AVA... Complete Imaging Last Impressions Aorta CTA 05/27/17 0000 Signed Impressions: Service Date/Time: Saturday, May 27, 2017 09:31 - CONCLUSION: Satisfactory vascular appearance post interval thoracic endograft repair. Interval development of small bilateral pleural effusions. Og Joya MD Aneurysm Repair 05/25/17 0000 Signed Impressions: Service Date/Time: Thursday, May 25, 2017 10:51 - CONCLUSION: 1. 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 Clifford Machado MD Chest X-Ray 05/24/17 0000 Signed Impressions: Service Date/Time: Wednesday, May 24, 2017 14:56 - CONCLUSION: Interval removal of chest port and esophageal stent. No definite acute findings. Og Joya MD Physical Exam HEENT: normocephalic; atraumatic; no jaundice. NECK: Neck is supple, no JVD, no lymphadenopathy. CHEST: Chest is clear to auscultation and percussion. CARDIAC: Regular rate and rhythm with no murmur gallop or rubs. ABDOMEN: Soft, nondistended, nontender; no hepatosplenomegaly; bowel sounds are present in all four quadrants. EXTREMITIES: No clubbing, cyanosis, or edema. SKIN: Normal; no rash; no jaundice. COMPUTER EDUCATION PROFESSOR: No focal deficits; alert and oriented times three. (Tommie PinoP) Assessment and Plan Assessment: (1) Blood loss anemia ICD Codes: D50.0 - Iron deficiency anemia secondary to blood loss (chronic) (2) Dysphagia ICD Codes: R13.10 - Dysphagia, unspecified Status: Acute (3) Hematemesis ICD Codes: K92.0 - Hematemesis Status: Acute (4) Esophageal stricture ICD Codes: K22.2 - Esophageal obstruction Status: Acute (5) Normocytic anemia ICD Codes: D64.9 - Anemia, unspecified Status: Acute Plan hgb declined today, still passing melanotic stools Received 1 unit transfusion today, no nausea, no vomiting s/p EGD 05/27/17 --->Severe ulcerated esophagitis with an esophageal ulcer and stigmata of recent bleed Small hiatal hernia Plan clears If patient continues to bleed, consider Lindsay tube placement and esophageal stent Monitor labs and recheck CBC in the morning Transfuse as needed Cont Protonix Call for any acute GI bleed Further procedures and plan a care will be based on symptoms. Patient was seen by myself and Dr. Monzon, note written on his behalf (Tommie Pino) Physician Comments Patient seen and examined Agree with above Continue with current supportive care Monitor labs Will advance diet tomorrow (Sal Monzon MD) Problem Qualifiers (1) Hematemesis: Qualified Codes: K92.0 - Hematemesis Tommie Pino May 28, 2017 15:46 Sal Monzon MD May 28, 2017 21:59
[2017-05-28 20:43] LABS: HEMATOCRIT 29.1 % (35.0-46.0); HEMOGLOBIN 9.8 GM/DL (11.6-15.3)
[2017-05-28] MEDS ORDERED: ESTRADIOL 0.1 MG/24 HR PATCH T-DERMAL SCH (21:00)
[2017-05-28] MEDS ORDERED: REMOVE OLD CLIMARA (ESTRADIOL) PATCH T-DERMAL SCH (21:00)
[2017-05-28] MEDS: AMITRIPTYLINE HCL 25 MG TAB PO SCH (21:05)
[2017-05-29] VITALS (12 sets, daily range): BP systolic 122–152; BP diastolic 56–65; PULSE 72–95; RESP 17–26; TEMP 97.8–99; O2SAT 92–99
[2017-05-29] MEDS: PIPERACIL-TAZO 3.375 GM PREMIX 50 ML IV SCH ×3 (04:34→20:27)
[2017-05-29] MEDS: LEVOTHYROXINE SODIUM 75 MCG TAB PO SCH (04:44)
[2017-05-29 06:14] LABS: HEMATOCRIT 29.4 % (35.0-46.0); HEMOGLOBIN 9.9 GM/DL (11.6-15.3)
[2017-05-29] MEDS: DIAZEPAM 5 MG TAB PO SCH ×2 (09:00→20:28)
[2017-05-29] MEDS: SODIUM CHLORIDE 0.9% FLUSH 10 ML FLUSH IV FLUSH SCH ×2 (09:00→20:28)
--- NOTE | 2017-05-29 17:50 | HHI.CCPN ---
Subjective Remarks/Hospital Course 76 year-old female with past medical history non-small cell lung cancer stage IIb discovered in May/Jun 2016 status post chemotherapy and 35 radiation treatments completed in August of 2016. She has had radiation esophagitis and recurrent stricture with recurrent food bolus impaction requiring numerous esophageal dilatation procedures (patient and her daughter estimate about 10) and esopahgeal stent 12/24/16. She states that on 05/18/17 that she was having hematemesis and went to [facility].She underwent removal of food foreign body and esophageal dilation by Dr. Monzon. Dr. Monzon states that upon second dilation he encountered a large amount of bleeding. He was able to tamponade and obtain hemostasis. Lindsay tube was inserted and she remained intubated overnight. Lindsay tube was removed the next day and she had no further bleeding and diet was advanced. Patients daughter (who is an RN) reports she received 2 units PRBC. She states that since discharge she "has been doing well" until she "spit up" about 1 teaspoon of bright red blood today (denies actual vomiting). She discussed with Drs. Monzon who recommended evaluation in the emergency department and workup for aortoesophageal fistula. CTA was performed and demonstrated outpouching of the proximal descending aorta concerning for small aortic esophageal fistula. Did not appear to be actively bleeding. Dr. Vasquez has been consulted and plans to proceed with endovascular aortic stent at 9 am on 05/25/16. Patient has not noted any additional bleeding since what occurred before 9 AM on 05/24. Hemoglobin is 10.3 (previously 12.8 on 04/25/17) Coags are normal. She has not been on antiplatelet or anticoagulant therapy. She is being admitted to [facility] per critical care medicine 05/25: Currently resting in bed in no acute distress. Currently with non- productive cough which she treats to "phlegm". No further hematemesis noted. Afebrile. Plan to IR today for stenting by Dr. Vasquez. Subjective 05/26: Afebrile. Status post placement of Thoraco-Aesophageal stent 28 x 28 x [address] Tej Machado/Christina yesterday successfully. Tolerating diet. No further hemoptysis/bleeding identified. Currently on 2 L nasal cannula. 05/27: afebrile. hgb dropped to 6.0 from 7.9 yesterday. received 2 units prbc early this AM. still tachycardic, feels fatigued subjectively. just had large melanotic stool. pallor is significant. denies abdominal pain or hematemesis. 05/28: Additional melanotic stools and Hgb decline of nearly 2 grams. Normotensive. Will transfuse 1 unit rbcs and follow closely. 05/29: Hgb stable overnight. Two loose melanotic stools. Stable hemodynamics. Objective Vital Signs Date Time Temp Pulse Resp B/P (MAP) Pulse Ox O2 Delivery O2 Flow Rate FiO2 05/29/17 16:00 72 05/29/17 16:00 98.5 23 129/56 (80) 95 05/29/17 15:03 Nasal Cannula 2.00 05/26/17 11:47 21 Intake and Output 05/29/17 05/29/17 05/30/17 08:00 16:00 00:00 Intake Total 200 ml Output Total 550 ml Balance -350 ml Result Diagram: 05/29/17 0443 05/27/17 0357 Imaging Last Impressions Aneurysm Repair 05/25/17 0000 Signed Impressions: Service Date/Time: Thursday, May 25, 2017 10:51 - CONCLUSION: 1. 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 Clifford Machado MD Chest X-Ray 05/24/17 0000 Signed Impressions: Service Date/Time: Wednesday, May 24, 2017 14:56 - CONCLUSION: Interval removal of chest port and esophageal stent. No definite acute findings. Og Joya MD Aorta CTA 05/24/17 0000 Signed Impressions: Service Date/Time: Wednesday, May 24, 2017 15:38 - CONCLUSION: 1. The examination demonstrates a small outpouching of the proximal portion of the descending thoracic aorta. This extends up to and partially projects into a thickened, grossly abnormal appearing segment of the esophagus. 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 This does not appear actively bleeding at this time. 2. Results were called to Dr. yarbrough in the ED. Clifford Machado MD Objective Remarks GENERAL: elderly female. SKIN: Warm, remains pale. HEAD: Atraumatic. Normocephalic. ENT: No nasal bleeding or discharge. Mucous membranes pale. Upper dentures in place. NECK: Trachea midline. Airway widely patent. CARDIOVASCULAR: Normal rate 72, regular rhythm. sinus by tele. No JVD. RESPIRATORY: Clear, good rhonda air movement. Mild tachypnea 20s GASTROINTESTINAL: Abdomen soft, non-tender, nondistended. BS active. MUSCULOSKELETAL: Extremities without edema. No obvious deformities, warm, well perfused. NEUROLOGICAL: Awake and alert. Conversant. 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 NEURO/PSYCH: Anxiety Ofirmev 1 g IV every 8 hours when necessary fever/pain 1-2 Oxycodone 5 mg as needed for pain 3 through 5 (has taken at home before) Morphine sulfate 2 g IV every 3 hours as needed pain 6-10 Home dose clorazepate 3.75 milligrams by mouth 3 times a day was converted to diazepam 5 mg by mouth every 12 hours Continue amitriptyline 25 mg by mouth daily at bedtime RESP: Nasal cannula to maintain saturations greater than equal to 92% currently on 2 L Incentive spirometry every hour while awake CV: History of hypertension History of dyslipidemia Monitor hemodynamics Currently normal saline with potassium chloride 84 cc an hour. We'll discontinue today Previous history of hypertension but not has not been on antihypertensives since losing significant weight. Radius history of hyperlipidemia but has been off statins since radiation therapy GI: Aorta esophageal fistula - status post thoraco esophageal stent 28 x [address] Machado/Christina Dysphagia secondary to Radiation esophagitis, esophageal stricture s/p multiple multiple dilation procedures, s/p esophageal stent 12/2016. Hypoalbuminemia Elevated alkaline phosphatase initial CTA aorta - focal outpouching the distal arch and the descending thoracic aorta. Likely small esophageal fistula. Prior history of PEG placement with subsequent dislodgement, infection and fistula which has subsequently healed. Status post thoracoesophageal stent placement as above On dexlansoprazole 30 milligrams po daily as outpatient or gastroesophageal reflux disease . increase to BID IV PPI given concern for GI bleeding. repeat CT aortogram. Advance diet per surgery RENAL: Monitor intake and output. Accurate I's and O's daily bmp ID: Bacteriuria Follow up urine culture 05/24 immature growth. 05/25 blood culture. No growth today On piperacillin/tazobactam 3.375 g IV every 8 hours and vancomycin 1 g every 12 hours times [address] Vasquez due to aortic esophageal fistula Any follow-up/home antibiotics per vascular surgery HEME/ONC: Non-small cell lung cancer stage IIIB status post concurrent chemotherapy and radiation completed August/2017. Dr. Montiel is her oncologist. Radiation oncologist is Dr. Hernandez Acute blood loss anemia - normocytic normochromic- active and worsening. Hemoglobin is 10.3. She has not clinically noted any additional bleeding and is currently hemodynamically stable. Check CBC in a.m. Coags are normal . Platelet count. She has not been on any anticoagulant or antiplatelet therapy transfuse 2 units prbc. trend serial h&h transfuse 1 unit 05/28. ENDO: Hypothyroidism Continue Synthroid 75 g by mouth daily Check TSH - 2.81 Sliding scale insulin case before meals/at bedtime to maintain euglycemia/24 hours discontinued. Glycemic OPHTHO: Macular degeneration Followed by ophthalmology outpatient GEAR DESIGN ENGINEER: HRT: Continue estradiol patch are 0.1 milligrams every 24 hours/weekly replaced FEN: Hypocalcemia Continue multivitamin 1 tab by mouth daily Replace electrolytes as clinically indicated per ICU electrolyte protocol PROPH: SCDs for DVT prophylaxis. Pharmacologic DVT prophylaxis contraindicated due to concern for hemorrhage from aortoesophageal fistula. Pantoprazole 40 mg IV BID ACCESS: Peripheral IV providing at this time. She previously had a port that was previously removed due to coag negative staph bacteremia. Overall impression: Hgb decline not surprising necessarily. Follow closely. Stable overnight. Erik Montoya MD May 29, 2017 17:50
[2017-05-29] MEDS: AMITRIPTYLINE HCL 25 MG TAB PO SCH (20:27)
[2017-05-29] MEDS: PANTOPRAZOLE INJ 80 MG in SODIUM CHLORIDE 0.9% INJ 100 ML IV SCH (20:34)
--- NOTE | 2017-05-29 22:34 | HHI.GIFU ---
Subjective Remarks Comfortable in bed no further bleeding afraid to eat Objective Vitals I&O Vital Signs Date Time Temp Pulse Resp B/P (MAP) Pulse Ox O2 Delivery O2 Flow Rate FiO2 05/29/17 21:49 98 Nasal Cannula 2.00 05/29/17 21:33 22 05/29/17 20:00 97.8 95 22 127/61 (83) 99 05/29/17 20:00 95 05/29/17 19:00 97 Nasal Cannula 2.00 05/29/17 16:00 72 05/29/17 16:00 98.5 72 23 129/56 (80) 95 05/29/17 15:03 96 Nasal Cannula 2.00 05/29/17 14:00 85 05/29/17 12:00 72 05/29/17 12:00 99.0 72 17 141/64 (89) 95 05/29/17 10:00 87 05/29/17 08:00 98.1 81 25 152/65 (94) 95 05/29/17 08:00 81 05/29/17 08:00 92 Nasal Cannula 2.00 05/29/17 06:00 83 05/29/17 04:00 98.1 87 26 122/60 (80) 96 05/29/17 04:00 87 05/29/17 02:00 80 05/29/17 00:00 92 05/29/17 00:00 98.2 92 26 134/62 (86) 92 I/O 05/28/17 05/28/17 05/28/17 05/29/17 05/29/17 05/29/17 07:00 15:00 23:00 07:00 15:00 23:00 Intake Total 280 ml 850 ml 1200 ml 200 ml 380 ml Output Total 800 ml 550 ml 125 ml Balance 280 ml 850 ml 400 ml -350 ml 255 ml Intake Oral 120 ml 600 ml 200 ml 380 ml IV Total 160 ml Packed Cells 400 ml 400 ml Blood Product IV Normal Saline Flush 450 ml Other 200 ml Output Urine Total 800 ml 550 ml 125 ml # Voids 3 1 4 # Bowel Movements 2 5 1 1 Laboratory Laboratory Tests Test 05/29/17 04:43 Hemoglobin 9.9 Hematocrit 29.4 Date/Time Source Procedure Growth Status 05/25/17 00:35 Blood Peripheral Aerobic Blood Culture - Preliminary NO GROWTH IN 4 DAYS Resulted 05/25/17 00:35 Blood Peripheral Anaerobic Blood Culture - Preliminary NO GROWTH IN 4 DAYS Resulted 05/24/17 13:20 Urine Random Urine Urine Culture - Final 10-50,000 CFU/ML MIXED AVA... Complete Imaging Last Impressions Aorta CTA 05/27/17 0000 Signed Impressions: Service Date/Time: Saturday, May 27, 2017 09:31 - CONCLUSION: Satisfactory vascular appearance post interval thoracic endograft repair. Interval development of small bilateral pleural effusions. Og Joya MD Aneurysm Repair 05/25/17 0000 Signed Impressions: Service Date/Time: Thursday, May 25, 2017 10:51 - CONCLUSION: 1. 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 Clifford Machado MD Chest X-Ray 05/24/17 0000 Signed Impressions: Service Date/Time: Wednesday, May 24, 2017 14:56 - CONCLUSION: Interval removal of chest port and esophageal stent. No definite acute findings. Og Joya MD Physical Exam HEENT: normocephalic; atraumatic; no jaundice. NECK: Neck is supple, no JVD, no lymphadenopathy. CHEST: Chest is clear to auscultation and percussion. CARDIAC: Regular rate and rhythm with no murmur gallop or rubs. ABDOMEN: Soft, nondistended, nontender; no hepatosplenomegaly; bowel sounds are present in all four quadrants. EXTREMITIES: No clubbing, cyanosis, or edema. SKIN: Normal; no rash; no jaundice. 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 Assessment and Plan Assessment: (1) Blood loss anemia ICD Codes: D50.0 - Iron deficiency anemia secondary to blood loss (chronic) (2) Dysphagia ICD Codes: R13.10 - Dysphagia, unspecified Status: Acute (3) Hematemesis ICD Codes: K92.0 - Hematemesis Status: Acute (4) Esophageal stricture ICD Codes: K22.2 - Esophageal obstruction Status: Acute (5) Normocytic anemia ICD Codes: D64.9 - Anemia, unspecified Status: Acute Plan No signs of active bleeding, did have 1 melanotic stools, no vomiting s/p EGD 05/27/17 --->Severe ulcerated esophagitis with an esophageal ulcer and stigmata of recent bleed Small hiatal hernia Plan Last diet If patient continues to bleed, consider Lindsay tube placement and esophageal stent Monitor labs and recheck CBC in the morning Transfuse as needed Cont Protonix drip Call for any acute GI bleed Further procedures and plan a care will be based on symptoms. Anticipate discharge in one to 2 days if all continues to go well Problem Qualifiers (1) Hematemesis: Qualified Codes: K92.0 - Hematemesis Sal Monzon MD May 29, 2017 22:34
[2017-05-30] VITALS (8 sets, daily range): BP systolic 105–137; BP diastolic 52–69; PULSE 87–96; RESP 18–25; TEMP 97.6–98.4; O2SAT 92–99
[2017-05-30 04:41] LABS: HEMATOCRIT 29.8 % (35.0-46.0)
[2017-05-30] MEDS: PIPERACIL-TAZO 3.375 GM PREMIX 50 ML IV SCH ×2 (05:22→13:40)
[2017-05-30] MEDS: LEVOTHYROXINE SODIUM 75 MCG TAB PO SCH (05:22)
[2017-05-30] MEDS: PANTOPRAZOLE INJ 80 MG in SODIUM CHLORIDE 0.9% INJ 100 ML IV SCH (06:45)
[2017-05-30] MEDS: SODIUM CHLORIDE 0.9% FLUSH 10 ML FLUSH IV FLUSH SCH (09:00)
[2017-05-30] MEDS: DIAZEPAM 5 MG TAB PO SCH (09:00)
--- NOTE | 2017-05-30 10:52 | HHI.CCPN ---
Subjective Remarks/Hospital Course 76 year-old female with past medical history non-small cell lung cancer stage IIb discovered in May/Jun 2016 status post chemotherapy and 35 radiation treatments completed in August of 2016. She has had radiation esophagitis and recurrent stricture with recurrent food bolus impaction requiring numerous esophageal dilatation procedures (patient and her daughter estimate about 10) and esopahgeal stent 12/24/16. She states that on 05/18/17 that she was having hematemesis and went to [facility].She underwent removal of food foreign body and esophageal dilation by Dr. Monzon. Dr. Monzon states that upon second dilation he encountered a large amount of bleeding. He was able to tamponade and obtain hemostasis. Lindsay tube was inserted and she remained intubated overnight. Lindsay tube was removed the next day and she had no further bleeding and diet was advanced. Patients daughter (who is an RN) reports she received 2 units PRBC. She states that since discharge she "has been doing well" until she "spit up" about 1 teaspoon of bright red blood today (denies actual vomiting). She discussed with Drs. Monzon who recommended evaluation in the emergency department and workup for aortoesophageal fistula. CTA was performed and demonstrated outpouching of the proximal descending aorta concerning for small aortic esophageal fistula. Did not appear to be actively bleeding. Dr. Vasquez has been consulted and plans to proceed with endovascular aortic stent at 9 am on 05/25/16. Patient has not noted any additional bleeding since what occurred before 9 AM on 05/24. Hemoglobin is 10.3 (previously 12.8 on 04/25/17) Coags are normal. She has not been on antiplatelet or anticoagulant therapy. She is being admitted to [facility] per critical care medicine 05/25: Currently resting in bed in no acute distress. Currently with non- productive cough which she treats to "phlegm". No further hematemesis noted. Afebrile. Plan to IR today for stenting by Dr. Vasquez. Subjective 05/26: Afebrile. Status post placement of Thoraco-Aesophageal stent 28 x 28 x [address] Tej Machado/Christina yesterday successfully. Tolerating diet. No further hemoptysis/bleeding identified. Currently on 2 L nasal cannula. 05/27: afebrile. hgb dropped to 6.0 from 7.9 yesterday. received 2 units prbc early this AM. still tachycardic, feels fatigued subjectively. just had large melanotic stool. pallor is significant. denies abdominal pain or hematemesis. 05/28: Additional melanotic stools and Hgb decline of nearly 2 grams. Normotensive. Will transfuse 1 unit rbcs and follow closely. 05/29: Hgb stable overnight. Two loose melanotic stools. Stable hemodynamics. 05/30: Hgb stable past 24 hours. No more melena stools. Objective Vital Signs Date Time Temp Pulse Resp B/P (MAP) Pulse Ox O2 Delivery O2 Flow Rate FiO2 05/30/17 08:00 98.0 87 18 124/58 (80) 93 05/30/17 07:00 Nasal Cannula 2.00 05/26/17 11:47 21 Intake and Output 05/30/17 05/30/17 05/31/17 08:00 16:00 00:00 Intake Total 390 ml Balance 390 ml Result Diagram: 05/30/17 0342 05/27/17 0357 Imaging Last Impressions Aneurysm Repair 05/25/17 0000 Signed Impressions: Service Date/Time: Thursday, May 25, 2017 10:51 - CONCLUSION: 1. 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 Clifford Machado MD Chest X-Ray 05/24/17 0000 Signed Impressions: Service Date/Time: Wednesday, May 24, 2017 14:56 - CONCLUSION: Interval removal of chest port and esophageal stent. No definite acute findings. Og Joya MD Aorta CTA 05/24/17 0000 Signed Impressions: Service Date/Time: Wednesday, May 24, 2017 15:38 - CONCLUSION: 1. The examination demonstrates a small outpouching of the proximal portion of the descending thoracic aorta. This extends up to and partially projects into a thickened, grossly abnormal appearing segment of the esophagus. 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 This does not appear actively bleeding at this time. 2. Results were called to Dr. yarbrough in the ED. Clifford Machado MD Objective Remarks GENERAL: elderly female. SKIN: Warm, remains pale. HEAD: Atraumatic. Normocephalic. ENT: No nasal bleeding or discharge. Mucous membranes pale. Upper dentures in place. NECK: Trachea midline. Airway widely patent. CARDIOVASCULAR: Normal rate 73, regular rhythm. sinus by tele. No JVD. RESPIRATORY: Clear, good rhonda air movement. Mild tachypnea 18 GASTROINTESTINAL: Abdomen soft, non-tender, nondistended. BS active. MUSCULOSKELETAL: Extremities without edema. No obvious deformities, warm, well perfused. NEUROLOGICAL: Awake and alert. Conversant. 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 NEURO/PSYCH: Anxiety Ofirmev 1 g IV every 8 hours when necessary fever/pain 1-2 Oxycodone 5 mg as needed for pain 3 through 5 (has taken at home before) Morphine sulfate 2 g IV every 3 hours as needed pain 6-10 Home dose clorazepate 3.75 milligrams by mouth 3 times a day was converted to diazepam 5 mg by mouth every 12 hours Continue amitriptyline 25 mg by mouth daily at bedtime RESP: Nasal cannula to maintain saturations greater than equal to 92% currently on 2 L Incentive spirometry every hour while awake CV: History of hypertension History of dyslipidemia Monitor hemodynamics Currently normal saline with potassium chloride 84 cc an hour. We'll discontinue today Previous history of hypertension but not has not been on antihypertensives since losing significant weight. Radius history of hyperlipidemia but has been off statins since radiation therapy GI: Aorta esophageal fistula - status post thoraco esophageal stent 28 x [address] 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 Hypoalbuminemia Elevated alkaline phosphatase initial CTA aorta - focal outpouching the distal arch and the descending thoracic aorta. Likely small esophageal fistula. Prior history of PEG placement with subsequent dislodgement, infection and fistula which has subsequently healed. Status post thoracoesophageal stent placement as above On dexlansoprazole 30 milligrams po daily as outpatient or gastroesophageal reflux disease . increase to BID IV PPI given concern for GI bleeding. repeat CT aortogram. Advance diet per surgery RENAL: Monitor intake and output. Accurate I's and O's daily bmp ID: Bacteriuria Follow up urine culture 05/24 immature growth. 05/25 blood culture. No growth today On piperacillin/tazobactam 3.375 g IV every 8 hours and vancomycin 1 g every 12 hours times [address] Vasquez due to aortic esophageal fistula Any follow-up/home antibiotics per vascular surgery HEME/ONC: Non-small cell lung cancer stage IIIB status post concurrent chemotherapy and radiation completed August/2017. Dr. Montiel is her oncologist. Radiation oncologist is Dr. Hernandez Acute blood loss anemia - normocytic normochromic- active and worsening. Hemoglobin is 10.3. She has not clinically noted any additional bleeding and is currently hemodynamically stable. Check CBC in a.m. Coags are normal . Platelet count. She has not been on any anticoagulant or antiplatelet therapy transfuse 2 units prbc. trend serial h&h transfuse 1 unit 05/28. ENDO: Hypothyroidism Continue Synthroid 75 g by mouth daily Check TSH - 2.81 Sliding scale insulin case before meals/at bedtime to maintain euglycemia/24 hours discontinued. Glycemic OPHTHO: Macular degeneration Followed by ophthalmology outpatient DRAPERY ESTIMATOR: HRT: Continue estradiol patch are 0.1 milligrams every 24 hours/weekly replaced FEN: Hypocalcemia Continue multivitamin 1 tab by mouth daily Replace electrolytes as clinically indicated per ICU electrolyte protocol PROPH: SCDs for DVT prophylaxis. Pharmacologic DVT prophylaxis contraindicated due to concern for hemorrhage from aortoesophageal fistula. Pantoprazole 40 mg IV BID ACCESS: Peripheral IV providing at this time. She previously had a port that was previously removed due to coag negative staph bacteremia. Overall impression: Hgb stable for 2 days. Breathing comfortably. Will sign off. Erik Montoya MD May 30, 2017 10:52
--- NOTE | 2017-05-30 12:52 | PD.CAR.PN ---
CVT Progress Note Subjective/Hospital Course: Status post thoracic aortic stent placement. Groins clean, dry, excellent blood flow Neurologic intact Patient spit up some blood, but this is purely from the esophagus being friable. 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 This is bleeding from the esophagus and at this point I do not have any suggestion beyond conservative measures to contain this Maintenance of normal coagulation profile is mandatory and I believe this is going to stop on its own Patient appears to be much better after receiving 2 units of blood and remains hemodynamically stable 05/28/17 Patient doing okay at this time And another small drop of hemoglobin was transfuse one more unit PRBC by Dr. Parr Fully agree with excellent management patient has received Spoke to Dr. Manley and regarding the EGD, which revealed a sizable ulcer on the esophageal side of the esophago-aortic fistula. This is not surprising considering the bleeding and repeated dilatations patient had to undergo At this point would allow this to heal without to much further manipulation As above noted aortic stent is in nice position without any endoleak Patient should remain in the long-term antibiotics 05/30/17 Patient doing well Hemoglobin has stabilized As above noted large ulcer in the esophagus with very friable esophagus post radiation and dilatations Thoracic aortic stent in position No signs of infection Nothing to add from vascular point Will sign off at this time and please reconsult if any assistance can be rendered from vascular point Objective: Vital Signs Date Time Temp Pulse Resp B/P (MAP) Pulse Ox O2 Delivery O2 Flow Rate FiO2 05/30/17 12:00 90 05/30/17 12:00 98.0 91 18 137/63 (87) 93 05/30/17 08:00 98.0 87 18 124/58 (80) 93 05/30/17 08:00 89 05/30/17 07:00 Nasal Cannula 2.00 1/22/18 04:00 96 05/30/17 04:00 97.6 96 24 105/52 (69) 99 05/30/17 00:00 98.1 93 23 130/59 (82) 97 05/30/17 00:00 93 05/29/17 21:49 98 Nasal Cannula 2.00 05/29/17 21:33 22 05/29/17 20:00 97.8 95 22 127/61 (83) 99 05/29/17 20:00 95 05/29/17 19:00 97 Nasal Cannula 2.00 05/29/17 16:00 72 05/29/17 16:00 98.5 72 23 129/56 (80) 95 05/29/17 15:03 96 Nasal Cannula 2.00 05/29/17 14:00 85 Labs: Laboratory Tests Test 05/30/17 03:42 Hemoglobin 10.0 GM/DL (11.6-15.3) Hematocrit 29.8 % (35.0-46.0) Result Diagram: 05/30/17 0342 05/27/17 0357 Marion Vasquez MD May 30, 2017 12:52
--- NOTE | 2017-05-30 18:52 | HHI.GIFU ---
GI Follow-up Note Consult Follow-up Subjective: Patient laying in bed comfortably, no new complaints except wanting to go home. Tolearating po diet with no problems Objective: PHYSICAL EXAMINATION: Vitals signs stable No fever HEENT: Pupils round and reactive to light; normocephalic; atraumatic; no jaundice. Throat is clear. NECK: Neck is supple, no JVD, no lymphadenopathy. CHEST: Chest is clear to auscultation and percussion. CARDIAC: Regular rate and rhythm with no murmur gallop or rubs. ABDOMEN: Soft, nondistended, nontender; no hepatosplenomegaly; bowel sounds are present in all four quadrants. EXTREMITIES: No clubbing, cyanosis, or edema. SKIN: Normal; no rash; no jaundice. 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 Available Data (labs, X- Rays, Procedues) : Last Impressions Aorta CTA 05/27/17 0000 Signed Impressions: Service Date/Time: Saturday, May 27, 2017 09:31 - CONCLUSION: Satisfactory vascular appearance post interval thoracic endograft repair. Interval development of small bilateral pleural effusions. Og Joya MD Aneurysm Repair 05/25/17 0000 Signed Impressions: Service Date/Time: Thursday, May 25, 2017 10:51 - CONCLUSION: 1. 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 Clifford Machado MD Chest X-Ray 05/24/17 0000 Signed Impressions: Service Date/Time: Wednesday, May 24, 2017 14:56 - CONCLUSION: Interval removal of chest port and esophageal stent. No definite acute findings. Og Joya MD Laboratory Tests Test 05/28/17 20:00 05/29/17 04:43 05/30/17 03:42 Hemoglobin 9.8 GM/DL 9.9 GM/DL 10.0 GM/DL Hematocrit 29.1 % 29.4 % 29.8 % Allergies Coded Allergies Type Severity Reaction Last Updated Verified Sulfa (Sulfonamide Antibiotics) Allergy Severe SWELLING 05/24/17 Yes Active Scripts Medications Dose Route/Sig Max Daily Dose Days Date Category Dose Instructions Dexilant (Dexlansoprazole) 30 Mg 05/24/17 Reported Estradiol Patch 168 HR (Estradiol) 0.1 Mg/24 Hr Patch 1 Patch T-DERMAL Q7D 02/21/17 Reported Remove old patch and discard when new patch being placed. Clorazepate (Clorazepate Dipotassium) 3.75 Mg Tab 3.75 Mg PO TID 02/21/17 Reported Oxycodone (Oxycodone HCl) 5 Mg Tab 5 Mg PO Q4H PRN 01/07/17 Rx do not use this medicine if you will drive a car or use a machine , only use it when resting at home. Levothyroxine (Levothyroxine Sodium) 75 Mcg Tab 75 Mcg PO DAILY 11/12/16 Reported Amitriptyline (Amitriptyline HCl) 25 Mg Tab 25 Mg PO HS 06/14/16 Reported ASSESSMENT/PLAN: Seen and examined in the presnce of family. Doing well, anxious to go home tonight. No bleeding, no N/V reported. On iv protonix but has dexilant at home. Advised to take 60mg daily. Can be discharged home , has gi fu on 06/09/17. Discussed with nurse. Thank you It was a pleasure seeing Alina Valdovinos. Thank you for this consult. Entered by: Gregoria Melara MD May 30, 2017 18:52
--- NOTE | 2017-05-31 12:27 | HHI.DS ---
Discharge Summary Admission Date May 24, 2017 at 18:25 Discharge Date: May 30, 2017 Admitting Diagnosis aortoesophageal fistula (1) Lung cancer ICD Code: C34.90 - Malignant neoplasm of unspecified part of unspecified bronchus or lung Status: Acute (2) Radiation-induced esophageal stricture ICD Code: K22.2 - Esophageal obstruction Status: Acute (3) Non-small cell lung cancer (NSCLC) ICD Code: C34.90 - Malignant neoplasm of unspecified part of unspecified bronchus or lung Status: Acute (4) Aorto-esophageal fistula ICD Code: K22.8 - Other specified diseases of esophagus Status: Acute Procedures Thoracic aortic stent. Brief History 76 year-old female with past medical history non-small cell lung cancer stage IIb discovered in May/early Jun 2016 status post chemotherapy and 35 radiation treatments completed in August of 2016. She has had radiation esophagitis and recurrent stricture with recurrent food bolus impaction requiring numerous esophageal dilatation procedures (patient and her daughter estimate about 10) and esopahgeal stent 12/24/16. She states that on 05/18/17 that she was having hematemesis and went to [facility].She underwent removal of food foreign body and esophageal dilation by Dr. Monzon. Dr. Monzon states that upon second dilation he encountered a large amount of bleeding. He was able to tamponade and obtain hemostasis. Lindsay tube was inserted and she remained intubated overnight. Lindsay tube was removed the next day and she had no further bleeding and diet was advanced. Patients daughter (who is an RN) reports she received 2 units PRBC. She states that since discharge she "has been doing well" until she "spit up" about 1 teaspoon of bright red blood today (denies actual vomiting). She discussed with Drs. Monzon who recommended evaluation in the emergency department and workup for aortoesophageal fistula. CTA was performed and demonstrated outpouching of the proximal descending aorta concerning for small aortic esophageal fistula. Did not appear to be actively bleeding. Dr. Vasquez has been consulted and plans to proceed with endovascular aortic stent at 9 am on 05/25/16. Patient has not noted any additional bleeding since what occurred before 9 AM on 05/24. Hemoglobin is 10.3 (previously 12.8 on 04/25/17) Coags are normal. She has not been on antiplatelet or anticoagulant therapy. She is being admitted to [facility] per critical care medicine CBC/BMP: 05/30/17 0342 05/27/17 0357 Significant Findings Laboratory Tests Test 05/28/17 20:00 05/29/17 04:43 05/30/17 03:42 Hemoglobin 9.8 GM/DL (11.6-15.3) 9.9 GM/DL (11.6-15.3) 10.0 GM/DL (11.6-15.3) Hematocrit 29.1 % (35.0-46.0) 29.4 % (35.0-46.0) 29.8 % (35.0-46.0) Imaging CT chest PE at Discharge Improved. Breathing comfortably. Swallowing. Hospital Course 76 year-old female with past medical history non-small cell lung cancer stage IIb discovered in May/early Jun 2016 status post chemotherapy and 35 radiation treatments completed in August of 2016. She has had radiation esophagitis and recurrent stricture with recurrent food bolus impaction requiring numerous esophageal dilatation procedures (patient and her daughter estimate about 10) and esopahgeal stent 12/24/16. She states that on 05/18/17 that she was having hematemesis and went to [facility].She underwent removal of food foreign body and esophageal dilation by Dr. Monzon. Dr. Monzon states that upon second dilation he encountered a large amount of bleeding. He was able to tamponade and obtain hemostasis. Lindsay tube was inserted and she remained intubated overnight. Lindsay tube was removed the next day and she had no further bleeding and diet was advanced. Patients daughter (who is an RN) reports she received 2 units PRBC. She states that since discharge she "has been doing well" until she "spit up" about 1 teaspoon of bright red blood today (denies actual vomiting). She discussed with Drs. Monzon who recommended evaluation in the emergency department and workup for aortoesophageal fistula. CTA was performed and demonstrated outpouching of the proximal descending aorta concerning for small aortic esophageal fistula. Did not appear to be actively bleeding. Dr. Vasquez has been consulted and plans to proceed with endovascular aortic stent at 9 am on 05/25/16. Patient has not noted any additional bleeding since what occurred before 9 AM on 05/24. Hemoglobin is 10.3 (previously 12.8 on 04/25/17) Coags are normal. She has not been on antiplatelet or anticoagulant therapy. She is being admitted to [facility] per critical care medicine 05/25: Currently resting in bed in no acute distress. Currently with non- productive cough which she treats to "phlegm". No further hematemesis noted. Afebrile. Plan to IR today for stenting by Dr. Vasquez. Subjective 05/26: Afebrile. Status post placement of Thoraco-Aesophageal stent 28 x 28 x [address] Tej Machado/Christina yesterday successfully. Tolerating diet. No further hemoptysis/bleeding identified. Currently on 2 L nasal cannula. 05/27: afebrile. hgb dropped to 6.0 from 7.9 yesterday. received 2 units prbc early this AM. still tachycardic, feels fatigued subjectively. just had large melanotic stool. pallor is significant. denies abdominal pain or hematemesis. 05/28: Additional melanotic stools and Hgb decline of nearly 2 grams. Normotensive. Will transfuse 1 unit rbcs and follow closely. 05/29: Hgb stable overnight. Two loose melanotic stools. Stable hemodynamics. 05/30: Hgb stable past 24 hours. No more melena stools. Pt Condition on Discharge: Stable Discharge Disposition: Discharge Home Discharge Instructions DIET: Follow Instructions for: As Tolerated, No Restrictions Activities you can perform: Regular-No Restrictions Erik Montoya MD May 31, 2017 12:27
[2017-06-01] MEDS ORDERED: LEVO500T8 PO (16:32)
== END 2017-05-30 21:57 | disposition home or self-care (01) | DRG 981 ==
LOC: NEPC 10:01 → NEDA 18:25 → N03A 21:19
PROVIDERS: ADMIT Emergency Medicine; ATTEND Emergency Medicine
PROC: 30233N0 Transfusion of Autologous Red Blood Cells into Peripheral Vein, Percutaneous Approach (ICD-10-PCS; 2017-05-24)
PROC: 027 Heart and Great Vessels, Dilation (ICD-10-PCS; principal; 2017-05-25)
PROC: 0DJ08ZZ Inspection of Upper Intestinal Tract, Via Natural or Artificial Opening Endoscopic (ICD-10-PCS; 2017-05-27)
DX: K22.8 Other specified diseases of esophagus (principal); K22.11 Ulcer of esophagus with bleeding; I77.2 Rupture of artery; K92.0 Hematemesis; E88.09 Other disorders of plasma-protein metabolism, not elsewhere classified; D62 Acute posthemorrhagic anemia; E83.51 Hypocalcemia; C34.90 Malignant neoplasm of unspecified part of unspecified bronchus or lung; K92.1 Melena; K22.2 Esophageal obstruction; F41.9 Anxiety disorder, unspecified; R00.0 Tachycardia, unspecified; E03.9 Hypothyroidism, unspecified; I10 Essential (primary) hypertension; K44.9 Diaphragmatic hernia without obstruction or gangrene; E78.5 Hyperlipidemia, unspecified; K21.0 Gastro-esophageal reflux disease with esophagitis; Y84.2 Radiological procedure and radiotherapy as the cause of abnormal reaction of the patient, or of later complication, without mention of misadventure at the time of the procedure; H35.30 Unspecified macular degeneration; R63.4 Abnormal weight loss; Z87.891 Personal history of nicotine dependence; Z92.21 Personal history of antineoplastic chemotherapy; Z92.3 Personal history of irradiation; Z80.0 Family history of malignant neoplasm of digestive organs; Z90.710 Acquired absence of both cervix and uterus; R74.8 Abnormal levels of other serum enzymes
CPT/HCPCS: 33881; 36140; 36200; 36430; 71045; 71275; 74174; 75957; 76937; 80048; 80053; 81001; 82948; 83605; 83690; 83735; 84100; 84443; 85014; 85018; 85025; 85027; 85610; 85730; 86850; 86900; 86901; 86920; 87040; 87086; 87641; 93005; 94150; 99291; C1725; C1760; C1769; C1887; C1894; C9113; J0610; J1644; J2250; J2405; J2543; J2720; J3010; J3370; J3475; J3480; J7030; J7050; P9016; Q9967

== ENCOUNTER → 2017-08-04 | Outpatient (CLI) | payer MEDICARE ==
[~2017-08-04] MED LIST changes: -CLAR10CA3 PO; +DEXI30CA2; +LEVO500T8 PO
[2017-08-04 20:39] LABS: HEMATOCRIT 41.2 % (35.0-46.0); HEMOGLOBIN 13.6 GM/DL (11.6-15.3); MEAN CELL VOLUME 80.8 FL (80.0-100.0); MEAN CORPUSCULAR HEMOGLOBIN 26.7 PG (27.0-34.0); MEAN CORPUSCULAR HGB CONC 33.1 % (32.0-36.0); MEAN PLATELET VOLUME 8.8 FL (7.0-11.0); PLATELET COUNT 264 TH/MM3 (150-450); RED BLOOD COUNT 5.09 MIL/MM3 (4.00-5.30); RED CELL DISTRIBUTION WIDTH 15.7 % (11.6-17.2); WHITE BLOOD COUNT 9.6 TH/MM3 (4.0-11.0)
[2017-08-04 20:55] LABS: AST (GOT) 13 U/L (15-37); BICARBONATE 27.5 MEQ/L (21.0-32.0); BLOOD UREA NITROGEN 13 MG/DL (7-18); CALCIUM 9.1 MG/DL (8.5-10.1); CHLORIDE 99 MEQ/L (98-107); GLOMERULAR FILTRATION RATE 97 ML/MIN (>89); GLUCOSE,FASTING 63 MG/DL (74-99); SODIUM (NA) 136 MEQ/L (136-145)
[2017-08-04 20:56] LABS: CHOLESTEROL 169 MG/DL (120-200); TRIGLYCERIDES 118 MG/DL (42-150)
[2017-08-04 21:06] LABS: ALKALINE PHOSPHATASE 344 U/L (45-117); ALT (GPT) 11 U/L (10-53); CHOLESTEROL/ HDL RATIO 5.21 RATIO; HDL CHOLESTEROL 32.4 MG/DL (40.0-60.0); LDL CHOLESTEROL 113 MG/DL (0-99); TOTAL BILIRUBIN ADULT 0.5 MG/DL (0.2-1.0); TOTAL PROTEIN 8.3 GM/DL (6.4-8.2)
== END ==
LOC: PLAB 14:41
PROVIDERS: ATTEND Family Medicine
DX: E78.4 Other hyperlipidemia (principal); E03.9 Hypothyroidism, unspecified; I10 Essential (primary) hypertension; C34.92 Malignant neoplasm of unspecified part of left bronchus or lung; K22.2 Esophageal obstruction
CPT/HCPCS: 36415; 80053; 80061; 84443; 85027

== ENCOUNTER 2017-09-06 10:50 | Emergency (ER) | payer MEDICARE ==
[~2017-09-06] VITALS: Ht 175.3 cm; Wt 50.0 kg
[2017-09-06 11:01] VITALS: BP 104/51; PULSE 109; RESP 37; TEMP 97.6; O2SAT 89
[2017-09-06] MEDS ORDERED: RESP: ALBUTEROL 2.5 MG/IPRATROPIUM 0.5 MG NEB (SCH) INH ONE (11:15)
[2017-09-06] MEDS ORDERED: SODIUM CHLORIDE 0.9% FLUSH 10 ML FLUSH IVF PRN (11:15)
--- NOTE | 2017-09-06 11:30 | PD ---
HPI Chief Complaint: Respiratory Symptoms Time Seen by Provider: 10:57 Travel History International Travel<30 days: No Contact w/Intl Traveler<30days: No Traveled to known affect area: No History of Present Illness HPI The patient is a 76-year-old female who presents to the emergency department via EMS for hemoptysis and shortness of breath. The patient does have a history of previous lung cancer, was scheduled for an outpatient CT and blood work later today for follow-up appointment tomorrow with her oncologist, Dr. Montiel. However, over the last several days the patient has been "spitting up "blood according to the daughter. 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 The patient was bleeding up blood earlier today that was bright red with some visible clots. The patient has also had increasing shortness of breath. The patient requests that she not be intubated, however, does not have a DNR. The patient does complain of increasing shortness of breath and has been on oxygen at home, around the clock for the last several days according to the daughter. EMS states the patient's initial pulse oximetry was in the low 90s on 3 L. PFSH Past Medical History Autoimmune Disease: No Anxiety: Yes Depression: No Cancer: Yes (lung cancer ) High Cholesterol: Yes Chemotherapy: Yes Diabetes: No Diminished Hearing: No Endocrine: Yes Gastrointestinal Disorders: Yes (esophageal stricture) Genitourinary: No Hepatitis: No Hiatal Hernia: No Hypertension: Yes Immune Disorder: No Implanted Vascular Access Dvce: Yes Musculoskeletal: No Neurologic: No Psychiatric: Yes Reproductive: No Respiratory: Yes (lung ca DENISE) Radiation Therapy: Yes (RADIATION LAST RECIVED 09/04/16) Thyroid Disease: Yes (hypothyroid) Triglycerides - High: Yes Menopausal: Yes Past Surgical History Abdominal Surgery: Yes (peg placement and removal, lymph nodes removed) AICD: No Body Medical Devices: peg tube and stent abdomen Cardiac Surgery: Yes (chest port placed and removed) Ear Surgery: No Endocrine Surgery: No Eye Surgery: No Genitourinary Surgery: No Gynecologic Surgery: Yes (hysterectomy) Hysterectomy: Yes Joint Replacement: No Oral Surgery: Yes (tonsillectomy, stretch esophagous "AT LEAST 10X") Pacemaker: No Thoracic Surgery: No Tonsillectomy: Yes Other Surgery: Yes (GTUBE WITH REVERSAL ) Social History Alcohol Use: Yes (OCC) Tobacco Use: No (E-CIG) Substance Use: No Allergies-Medications (Allergen,Severity, Reaction): Coded Allergies: Sulfa (Sulfonamide Antibiotics) (Verified Allergy, Severe, SWELLING, ) Reported Meds & Prescriptions Reported Meds & Active Scripts Active Levofloxacin 500 Mg Tablet 500 Mg PO DAILY 10 Days Oxycodone (Oxycodone HCl) 5 Mg Tab 5 Mg PO Q4H PRN do not use this medicine if you will drive a car or use a machine, only use it when resting at home. Reported Dexilant (Dexlansoprazole) 30 Mg Tobin. Estradiol Patch 168 HR (Estradiol) 0.1 Mg/24 Hr Patch 1 Patch T-DERMAL Q7D Remove old patch and discard when new patch being placed. Clorazepate (Clorazepate Dipotassium) 3.75 Mg Tab 3.75 Mg PO TID Levothyroxine (Levothyroxine Sodium) 75 Mcg Tab 75 Mcg PO DAILY Amitriptyline (Amitriptyline HCl) 25 Mg Tab 25 Mg PO HS Review of Systems Except as stated in HPI: all other systems reviewed are Neg General / Constitutional: Positive: Weight Loss, No: Fever HENT: No: Lightheadedness Cardiovascular: Positive: Dyspnea on exertion, No: Chest Pain or Discomfort Respiratory: Positive: Shortness of Breath, Hemoptysis Gastrointestinal: Positive: Hematemesis Genitourinary: No: Dysuria Musculoskeletal: Positive: Weakness Physical Exam Narrative GENERAL: Awake, alert, 76-year-old female appears her stated age and is in moderate respiratory distress. Cachectic build. SKIN: Focused skin assessment warm/dry. HEAD: Atraumatic. Normocephalic. EYES: No injection or drainage. ENT: No nasal bleeding or discharge. Dry blood in the oropharynx. NECK: Trachea midline. No JVD. CARDIOVASCULAR: Regular, heart rate in the 90s. RESPIRATORY: Tachypnea with a respiratory rate of 30. Prolonged expiratory phase. Diminished breath sounds left lung. Rhonchi noted. GASTROINTESTINAL: Abdomen soft, non-tender, nondistended. No rebound tenderness. MUSCULOSKELETAL: No obvious deformities. No clubbing. No cyanosis. No edema. NEUROLOGICAL: Awake and alert. No obvious cranial nerve deficits. Motor grossly within normal limits. Normal speech. PSYCHIATRIC: Appropriate mood and affect; insight and judgment normal. Data Data Last Documented VS Vital Signs Date Time Temp Pulse Resp B/P (MAP) Pulse Ox O2 Delivery O2 Flow Rate FiO2 09/06/17 14:47 102 32 71 Non-Rebreather 15.00 09/06/17 11:01 97.6 Orders Orders Complete Blood Count With Diff (09/06/17 11:07) Comprehensive Metabolic Panel (09/06/17 11:07) B-Type Natriuretic Peptide (09/06/17 11:07) Act Partial Throm Time (Ptt) (09/06/17 11:07) Prothrombin Time / Inr (Pt) (09/06/17 11:07) Magnesium (Mg) (09/06/17 11:07) Ckmb (Isoenzyme) Profile (09/06/17 11:07) Troponin I (09/06/17 11:07) Urinalysis - C+S If Indicated (09/06/17 11:07) Blood Culture (09/06/17 11:07) Iv Access Insert/Monitor (09/06/17 11:07) Electrocardiogram (09/06/17 11:07) Ecg Monitoring (09/06/17 11:07) Oximetry (09/06/17 11:07) Oxygen Administration (09/06/17 11:07) Chest, Single Ap (09/06/17 11:07) Sodium Chloride 0.9% Flush (Ns Flush) (09/06/17 11:15) Albuterol-Ipratropium Neb (Duoneb Neb) (09/06/17 11:15) Cta Thor Abd Aorta W Iv C W3d (09/06/17 ) Arterial Blood Gas (Abg) (09/06/17 ) Cefepime Inj (Maxipime Inj) (09/06/17 11:45) Azithromycin Inj (Zithromax Inj) (09/06/17 11:45) Sodium Chlor 0.9% 1000 Ml Inj (Ns 1000 M (09/06/17 12:15) Fentanyl Inj (Fentanyl Inj) (09/06/17 12:15) Hospice Consult (09/06/17 12:14) Iodixanol 320 Inj (Rad Ct) (Visipaque 32 (09/06/17 13:21) Lactic Acid (09/06/17 13:38) Fentanyl Inj (Fentanyl Inj) (09/06/17 14:00) Lorazepam Inj (Ativan Inj) (09/06/17 14:00) Ed Discharge Order (09/06/17 14:25) Labs Laboratory Tests Test 09/06/17 11:31 09/06/17 14:05 White Blood Count 69.4 TH/MM3 Red Blood Count 4.24 MIL/MM3 Hemoglobin 10.6 GM/DL Hematocrit 34.0 % Mean Corpuscular Volume 80.3 FL Mean Corpuscular Hemoglobin 25.1 PG Mean Corpuscular Hemoglobin Concent 31.3 % Red Cell Distribution Width 17.9 % Platelet Count 429 TH/MM3 Mean Platelet Volume 8.9 FL Neutrophils (%) (Auto) 95.7 % Lymphocytes (%) (Auto) 1.6 % Monocytes (%) (Auto) 2.6 % Eosinophils (%) (Auto) 0.0 % Basophils (%) (Auto) 0.1 % Neutrophils # (Auto) 66.4 TH/MM3 Lymphocytes # (Auto) 1.1 TH/MM3 Monocytes # (Auto) 1.8 TH/MM3 Eosinophils # (Auto) 0.0 TH/MM3 Basophils # (Auto) 0.0 TH/MM3 CBC Comment AUTO DIFF Differential Total Cells Counted 100 Neutrophils % (Manual) 90 % Band Neutrophils % 8 % Monocytes % 2 % Neutrophils # (Manual) 68.0 TH/MM3 Differential Comment FINAL DIFF MANUAL Toxic Granulation 1+ Platelet Estimate HIGH Platelet Morphology Comment NORMAL Prothrombin Time 13.7 SEC Prothromb Time International Ratio 1.4 RATIO Activated Partial Thromboplast Time 29.5 SEC Blood Gas Puncture Site LT BRACHIAL Blood Gas Patient Temperature 98.6 Blood Gas HCO3 26 mmol/L Blood Gas Base Excess 3.1 mmol/L Blood Gas Oxygen Saturation 84 % Arterial Blood pH 7.48 Arterial Blood Partial Pressure CO2 36 mmHg Arterial Blood Partial Pressure O2 52 mmHG Arterial Blood Oxygen Content 11.1 Vol % Arterial Blood Carboxyhemoglobin 2.1 % Arterial Blood Methemoglobin 0.6 % Blood Gas Hemoglobin 9.5 G/DL Oxygen Delivery Device NASAL CANNULA Blood Gas Liter Flow 6 L/M Blood Urea Nitrogen 58 MG/DL Creatinine 1.29 MG/DL Random Glucose 115 MG/DL Total Protein 7.5 GM/DL Albumin 1.9 GM/DL Calcium Level 9.1 MG/DL Magnesium Level 2.2 MG/DL Alkaline Phosphatase 164 U/L Aspartate Amino Transf (AST/SGOT) 18 U/L Alanine Aminotransferase (ALT/SGPT) 8 U/L Total Bilirubin 1.3 MG/DL Sodium Level 140 MEQ/L Potassium Level 4.1 MEQ/L Chloride Level 102 MEQ/L Carbon Dioxide Level 27.7 MEQ/L Anion Gap 10 MEQ/L Estimat Glomerular Filtration Rate 40 ML/MIN Total Creatine Kinase 23 U/L Troponin I LESS THAN 0.02 NG/ML B-Type Natriuretic Peptide 524 PG/ML Lactic Acid Level 2.0 mmol/L MDM Medical Decision Making Medical Screen Exam Complete: Yes Emergency Medical Condition: Yes Medical Record Reviewed: Yes Interpretation(s) EKG reveals sinus tachycardia with occasional supraventricular premature complex. Nonspecific T-wave changes. Q-wave noted in lead III and aVF. Laboratory Tests Test 09/06/17 11:31 White Blood Count 69.4 TH/MM3 Red Blood Count 4.24 MIL/MM3 Hemoglobin 10.6 GM/DL Hematocrit 34.0 % Mean Corpuscular Volume 80.3 FL Mean Corpuscular Hemoglobin 25.1 PG Mean Corpuscular Hemoglobin Concent 31.3 % Red Cell Distribution Width 17.9 % Platelet Count 429 TH/MM3 Mean Platelet Volume 8.9 FL Neutrophils (%) (Auto) 95.7 % Lymphocytes (%) (Auto) 1.6 % Monocytes (%) (Auto) 2.6 % Eosinophils (%) (Auto) 0.0 % Basophils (%) (Auto) 0.1 % Neutrophils # (Auto) 66.4 TH/MM3 Lymphocytes # (Auto) 1.1 TH/MM3 Monocytes # (Auto) 1.8 TH/MM3 Eosinophils # (Auto) 0.0 TH/MM3 Basophils # (Auto) 0.0 TH/MM3 CBC Comment AUTO DIFF Differential Total Cells Counted 100 Neutrophils % (Manual) 90 % Band Neutrophils % 8 % Monocytes % 2 % Neutrophils # (Manual) 68.0 TH/MM3 Differential Comment FINAL DIFF MANUAL Toxic Granulation 1+ Platelet Estimate HIGH Platelet Morphology Comment NORMAL Prothrombin Time 13.7 SEC Prothromb Time International Ratio 1.4 RATIO Activated Partial Thromboplast Time 29.5 SEC Blood Gas Puncture Site LT BRACHIAL Blood Gas Patient Temperature 98.6 Blood Gas HCO3 26 mmol/L Blood Gas Base Excess 3.1 mmol/L Blood Gas Oxygen Saturation 84 % Arterial Blood pH 7.48 Arterial Blood Partial Pressure CO2 36 mmHg Arterial Blood Partial Pressure O2 52 mmHG Arterial Blood Oxygen Content 11.1 Vol % Arterial Blood Carboxyhemoglobin 2.1 % Arterial Blood Methemoglobin 0.6 % Blood Gas Hemoglobin 9.5 G/DL Oxygen Delivery Device NASAL CANNULA Blood Gas Liter Flow 6 L/M Blood Urea Nitrogen 58 MG/DL Creatinine 1.29 MG/DL Random Glucose 115 MG/DL Total Protein 7.5 GM/DL Albumin 1.9 GM/DL Calcium Level 9.1 MG/DL Magnesium Level 2.2 MG/DL Alkaline Phosphatase 164 U/L Aspartate Amino Transf (AST/SGOT) 18 U/L Alanine Aminotransferase (ALT/SGPT) 8 U/L Total Bilirubin 1.3 MG/DL Sodium Level 140 MEQ/L Potassium Level 4.1 MEQ/L Chloride Level 102 MEQ/L Carbon Dioxide Level 27.7 MEQ/L Anion Gap 10 MEQ/L Estimat Glomerular Filtration Rate 40 ML/MIN Total Creatine Kinase 23 U/L Troponin I LESS THAN 0.02 NG/ML B-Type Natriuretic Peptide 524 PG/ML Last Impressions Chest X-Ray 09/06/17 1107 Signed Impressions: Service Date/Time: Wednesday, September 06, 2017 11:18 - CONCLUSION: 1. There is new near complete opacification of the left lung. This likely represents a combination of severe consolidation along with volume loss. Cannot exclude a small pleural effusion as well. Chest CT with IV contrast could further characterize, if needed. 2. There are 2 new sclerotic bone lesions identified in the proximal humeri bilaterally. Given the history of lung cancer, this could represent osseous metastatic disease. Og Miranda MD Aorta CTA 09/06/17 0000 Signed Impressions: Service Date/Time: Wednesday, September 06, 2017 12:51 - CONCLUSION: 1. There is a thoracic endograft in the aorta which begins just distal to the origin of the left subclavian. There is a new small area of contrast above the proximal attachment of the graft. This has an appearance suggesting a small pseudoaneurysm. 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 2. Complete consolidation of the left lung. Clifford Machado MD CT addendum reveals dilation of the proximal esophagus. There is gas within the posterior mediastinum extending along the esophagus. This examination would be concerning for possible esophageal perforation as well. Note is also made of complete opacification of the left mainstem bronchus and consolidation of the entire left lung. Differential Diagnosis Differential diagnosis includes aorto esophageal fistula, upper GI bleed, esophageal tear, esophageal varices, peptic ulcer disease, gastritis, pneumonia , aspiration, pulmonary embolism, end-of-life care, symptomatic anemia. Narrative Course IV was established, labs are drawn and sent, and the patient was placed on cardiac telemetry monitoring and continuous pulse oximetry monitoring. CTA of the chest was ordered to evaluate for possible recurrence of aorto esophageal fistula with hemoptysis/hematemesis and increasing shortness of breath. The patient requests that she not be intubated, I did have a discussion with the daughter who is at bedside who also states the patient has stated several times in the past that she does not want to be intubated. The patient was placed on oxygen via nasal cannula at 6 L. Chest x-ray and ABG were obtained. ABG reveals hypoxia despite 6 L of oxygen. Chest x-ray reveals a new near complete opacification of left lung which likely represents a combination of severe consolidation along with volume loss, cannot exclude a small pleural effusion. The patient was administered cefepime and Zithromax. I reassess the patient's once again, the patient's respiratory rate was 36, O2 sat was 88% via 6 L nasal cannula. I once again had a discussion regarding intubation with the patient and the daughter. The patient would like to hold off until the CT is performed. I did advise her that she will continue to tire and is at risk for cardiopulmonary arrest. The patient's blood pressure decreased into the 90s, therefore, the patient was administered 1 L of IV fluids. The patient was reevaluated once again at 12:10 PM. I did discussion with the patient and her daughter regarding hospice. The daughter would like hospice to evaluate the patient. The patient does not want to be intubated, does have criteria for severe sepsis. The patient was complaining of chronic back pain, therefore, the patient was administered fentanyl 25 mics intravenously. Urgent hospice consult was placed. CTA of the aorta and chest reveals air around the esophagus, possible esophageal perforation with consolidation changes in the left lung. I had a discussion with the patient and daughter at bedside. The patient's oxygen level fell into the 60s, the patient was placed on a nonrebreather. The patient does not want to be intubated, after discussion about possible different surgical management that would require intubation, it was decided the patient would be placed on hospice. I had a discussion about CODE STATUS, they would prefer DNR. A DNR was signed in the emergency department, I had a discussion with nursing staff at bedside. The patient was evaluated by hospice and will go to the [facility] at approximately 3 PM. The family is comfortable with this plan of care and disposition. A call was placed to the patient's oncologist, Dinesh. Critical Care Narrative Aggregate critical care time was 40 minutes. Time to perform other separately billable procedures was not included in the critical care time. My time did not include minutes spent treating any other patients simultaneously or on activities that did not directly contribute to the patient's treatment. The services I provided to this patient were to treat and/or prevent clinically significant deterioration that could result in: Anoxia, hypoxia, aspiration, sepsis, . I provided critical care services requiring my management, as noted below: Chart data review, documentation time, medication orders and management, vital sign assessments/reviewing monitor data, ordering and reviewing lab tests, ordering and interpreting/reviewing x-rays and diagnostic studies, care of the patient and discussion of the patient with the admitting physicians. Sepsis Criteria SIRS Criteria (2 or more): Heart rate over 90, RR > 20 or PaCO2 < 32, WBC > 87973, < 4000 or > 10% bands Diagnosis Primary Impression: End of life care Additional Impressions: Pneumonia Qualified Codes: J18.9 - Pneumonia, unspecified organism Acute respiratory failure with hypoxia Esophageal perforation Disposition: [facility] (Patient will be discharged to [facility]) Condition: Critical Rogerio Wynne MD September 06, 2017 11:30
[2017-09-06] MEDS ORDERED: CEFEPIME INJ 2,000 MG in SODIUM CHLORIDE 0.9% INJ 100 ML IV ONE (11:45)
[2017-09-06] MEDS ORDERED: AZITHROMYCIN INJ 500 MG in SODIUM CHLOR 0.9% 250 ML INJ 250 ML IV ONE (11:45)
--- NOTE | 2017-09-06 11:49 | RADRPT ---
EXAM DATE/TIME: 09/06/2017 11:18 [facility] COMPARISON: CTA THORACIC ABDOMINAL AORTA W 3D RECON, May 24, 2017, 15:38. CHEST SINGLE AP, May 24, 2017, 14:56. INDICATIONS : Short of breath with wheezing, weakness, cough. Left lung CA. MEDICAL HISTORY : Carcinoma, lung. SURGICAL HISTORY : ENCOUNTER: Initial ACUITY: 2 days PAIN SCORE: 0/10 LOCATION: Bilateral chest FINDINGS: Portable AP view of the chest demonstrates a normal-sized cardiac silhouette with leftward shift of t he mediastinum. There is a thoracic stent graft in place. There is near-complete opacification of the left hemithorax with minimal aerated lung remaining. Left hemidiaphragm is likely elevated. Right angela ng demonstrates no acute finding. Bilateral breast implants are present. There is a sclerotic focus i n the right proximal humerus measuring 9 mm in a sclerotic focus in the left humeral head measuring 9 mm. CONCLUSION: 1. There is new near complete opacification of the left lung. This likely represents a combination of severe consolidation along with volume loss. Cannot exclude a small pleural effusion as well. Chest CT with IV contrast could further characterize, if needed. 2. There are 2 new sclerotic bone lesions identified in the proximal humeri bilaterally. Given the hi story of lung cancer, this could represent osseous metastatic disease. Og Miranda MD on September 06, 2017 at 11:44 Board Certified Radiologist. This report was verified electronically.
[2017-09-06 11:56] VITALS: BP 99/52; PULSE 103; RESP 42
[2017-09-06 12:02] LABS: AUTOMATED NEUTROPHIL # 66.4 TH/MM3 (1.8-7.7); BASOPHIL % 0.1 % (0.0-2.0); HEMOGLOBIN 10.6 GM/DL (11.6-15.3); LYMPH % 1.6 % (9.0-44.0); LYMPHOCYTE # 1.1 TH/MM3 (1.0-4.8); MEAN CELL VOLUME 80.3 FL (80.0-100.0); MEAN CORPUSCULAR HEMOGLOBIN 25.1 PG (27.0-34.0); MEAN CORPUSCULAR HGB CONC 31.3 % (32.0-36.0); MEAN PLATELET VOLUME 8.9 FL (7.0-11.0); MONO % 2.6 % (0.0-8.0); MONOCYTE # 1.8 TH/MM3 (0-0.9); NEUT % 95.7 % (16.0-70.0); PLATELET COUNT 429 TH/MM3 (150-450); RED BLOOD COUNT 4.24 MIL/MM3 (4.00-5.30); RED CELL DISTRIBUTION WIDTH 17.9 % (11.6-17.2); WHITE BLOOD COUNT 69.4 TH/MM3 (4.0-11.0)
[2017-09-06 12:09] LABS: INTERNATIONAL NORMALIZED RATIO 1.4 RATIO; PROTHROMBIN TIME - PATIENT 13.7 SEC (9.8-11.6)
[2017-09-06] MEDS ORDERED: fentaNYL CITRATE 250 MCG/5 ML AMP IV PUSH ONE (12:15)
[2017-09-06] MEDS ORDERED: SODIUM CHLOR 0.9% 1000 ML INJ 1,000 ML IV ONE (12:15)
[2017-09-06 12:32] LABS: ALBUMIN 1.9 GM/DL (3.4-5.0); ALT (GPT) 8 U/L (10-53); AST (GOT) 18 U/L (15-37); BICARBONATE 27.7 MEQ/L (21.0-32.0); BLOOD UREA NITROGEN 58 MG/DL (7-18); CALCIUM 9.1 MG/DL (8.5-10.1); CHLORIDE 102 MEQ/L (98-107); CREATININE 1.29 MG/DL (0.50-1.00); GLOMERULAR FILTRATION RATE 40 ML/MIN (>89); GLUCOSE,RANDOM 115 MG/DL (74-106); MAGNESIUM 2.2 MG/DL (1.5-2.5); SODIUM (NA) 140 MEQ/L (136-145)
[2017-09-06 12:36] LABS: ALKALINE PHOSPHATASE 164 U/L (45-117); TOTAL BILIRUBIN ADULT 1.3 MG/DL (0.2-1.0); TOTAL PROTEIN 7.5 GM/DL (6.4-8.2); TROPONIN I LESS THAN 0.02 NG/ML (0.02-0.05)
[2017-09-06 12:57] LABS: BANDS 8 % (0-6); MONOCYTES 2 % (0-8); POLYS (SEG NEUTROPHILS) 90 % (16-70)
[2017-09-06 12:58] LABS: TOXIC GRANULATION 1+ (NORMAL)
[2017-09-06] MEDS ORDERED: IODIXANOL 320 MG/ML 10 ML VIAL (for Rad CT) IVCONTRAST ONE (13:21)
[2017-09-06] MEDS ORDERED: LORazepam 2 MG/ML VIAL IV PUSH PRN (14:00)
[2017-09-06 14:21] VITALS: BP 107/53; PULSE 107; RESP 38; O2SAT 76
--- NOTE | 2017-09-06 14:38 | RADRPT ---
EXAM DATE/TIME: 09/06/2017 12:51 This report includes an Addendum and supersedes previous reports for this exam. [facility] COMPARISON: ENDOVAS REPAIR THOR AORTA W/O LT SUBCLAVIAN, May 25, 2017, 10:51. CTA THORACIC ABDOMINAL AORTA W 3D RECON, May 27, 2017, 9:31. INDICATIONS : Hemoptysis with history of aorta esophageal fistula with previous repair. Evaluate for aortic dissec tion. IV CONTRAST: 50 cc Visipaque (iodixanol) IV RADIATION DOSE: 3.23 CTDIvol (mGy) MEDICAL HISTORY : Carcinoma, lung. Hypertension. Cardiovascular disease SURGICAL HISTORY : Hysterectomy. G-tube with reversal. ENCOUNTER: Initial ACUITY: 1 day PAIN SCALE: 2/10 LOCATION: chest TECHNIQUE: Volumetric scanning was performed using a multi-row detector CT scanner. The data was post processed with a variety of visualization algorithms including full volume maximum intensity projection, multi -planar sliding thin slab reformation, curved planar reformation, and surface rendering techniques. Using automated exposure control and adjustment of the mA and/or kV according to patient size, radiat ion dose was kept as low as reasonably achievable to obtain optimal diagnostic quality images. DICOM format image data is available electronically for review and comparison. FINDINGS: Thoracic aorta: The tubular portion of the ascending aorta is dilated at 3.4 cm. There is been previous Endo graft re placement with the tip of the endograft just distal to the left subclavian artery. The origin of the great vessels are patent. There is a small outpouching of contrast at the proximal aspect of the domenic t. This is new when compared to the previous study dated 05/27/17. This is concerning for a small pseu doaneurysm. This patient had a known aorto esophageal fistula as such, this would be concerning for a pseudoaneurysm. The graft is otherwise widely patent throughout its course. The distal thoracic aort a is normal in caliber. Abdominal aorta: The celiac and SMA origins are widely patent. There are single renal arteries bilaterally. The renal arteries are widely patent the infrarenal aorta is diseased but adequate in caliber. Pelvic circulation: The common iliac, internal iliac and external iliac circulation is widely patent bilaterally. There i s mild atherosclerotic plaquing. CT source data: Imaging through the pulmonary parenchyma demonstrates diffuse infiltrate and consolidation involving the entire left lung. There are COPD changes within the right lung. The heart is normal in size. No h ilar or mediastinal adenopathy is seen. Note is made of dilation of the upper esophagus. The solid organs of the abdomen are grossly intact. There is no retroperitoneal adenopathy. There is no free air or free fluid. CONCLUSION: 1. There is a thoracic endograft in the aorta which begins just distal to the origin of the left subc lavian. There is a new small area of contrast above the proximal attachment of the graft. This has an appearance suggesting a small pseudoaneurysm. 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 2. Complete consolidation of the left lung. Clifford Machado MD on September 06, 2017 at 14:11 Board Certified Radiologist. This report was verified electronically. ADDENDUM: The examination also demonstrates dilation of the proximal esophagus. There is gas within the posteri or mediastinum extending along the esophagus. This examination would be concerning for possible esoph ageal perforation as well. Note is also made of complete opacification of the left mainstem bronchus and consolidation of the en tire left lung. Clifford Machado MD on September 06, 2017 at 14:41 Board Certified Radiologist. This report was verified electronically.
--- NOTE | 2017-09-07 09:50 | EKG ---
Date Performed: 09/06/2017 Time Performed: 12:00:07 PTAGE: 76 years EKG: Sinus tachycardia Atrial premature beats Poor R-wave progression, which is old PREVIOUS TRACING : 05/24/2017 13.55 Artifact in V3 and V4, otherwise no change from the p rior tracing. DOCTOR: Cy Ruiz Interpretating Date/Time 09/07/2017 09:49:32
== END 2017-09-06 15:34 | disposition hospice, inpatient (51) ==
LOC: NEPC 10:50
DX: J18.1 Lobar pneumonia, unspecified organism (principal); J96.01 Acute respiratory failure with hypoxia; K22.3 Perforation of esophagus; E03.9 Hypothyroidism, unspecified; Z79.899 Other long term (current) drug therapy; Z85.118 Personal history of other malignant neoplasm of bronchus and lung
CPT/HCPCS: 36600; 71045; 71275; 74174; 80053; 82550; 82805; 83605; 83735; 83880; 84484; 85007; 85027; 85610; 85730; 87040; 87186; 87205; 93005; 94664; 96374; 96375; 99291; J0456; J0692; J2060; J3010; J7030; J7050; Q9967